=== PATIENT | female | born 1955 | race Caucasian/White ===

== ENCOUNTER → 2020-02-05 08:06 | Outpatient (BNVA) | payer MEDICARE, MEDICAID, SELFPAY | PROVIDERS: Visit Provider Dietitian, Registered | DX: I25.10 Atherosclerotic heart disease of native coronary artery without angina pectoris (principal); E66.3 Overweight; Z68.24 Body mass index [BMI] 24.0-24.9, adult; Z98.84 Bariatric surgery status | CPT/HCPCS: 93005; 99212 ==

== ENCOUNTER 2020-02-13 14:22 | Outpatient (REF) | payer MEDICARE, MEDICAID, SELFPAY ==
--- NOTE | 2020-02-13 14:26 | US_ITS ---
EXAMINATION: US EXTRACRANIAL CAROTID DUPLEX, BILATERAL CLINICAL INFORMATION: Carotid stenosis COMPARISON: None TECHNIQUE: Real-time ultrasound and Doppler techniques (integrating B-mode 2-D vascular images, Doppler spectral analysis and color-flow Doppler imaging) were utilized to interrogate the extracranial carotid arteries, the vertebral arteries and proximal subclavian arteries bilaterally. The degree of stenosis is determined by criteria similar to NASCET. FINDINGS: Right Side: 1. There is calcified atherosclerotic plaque seen in the bifurcation/proximal ICA region. 2. The common carotid artery PSV proximally is 92 cm/s and distally 59 cm/s. 3. there is a stent in the proximal right ICA. The stent is patent. The proximal internal carotid artery velocities are 127 cm/s systolic and 44 cm/s diastolic. 4. The proximal external carotid artery PSV is 382 cm/s. There is a stenosis of the proximal right ECA. 5. The vertebral artery shows antegrade flow. 6. The subclavian artery waveforms are normal. Left Side: 1. There is calcified atherosclerotic plaque seen in the bifurcation/proximal ICA region. 2. The common carotid artery PSV proximally is 94 cm/s and distally 44 cm/s. 3. The proximal internal carotid artery velocities are 285 cm/s systolic and 110 cm/s diastolic. There is a stenosis of the proximal left internal carotid artery. 4. The proximal external carotid artery PSV is 471 cm/s. There is a stenosis of the proximal left ECA. 5. The vertebral artery shows antegrade flow. 6. The subclavian artery waveforms are normal. US/US carotid duplex BI IMPRESSION: 1. RIGHT: Right ICA stent. The stent is patent. Peak systolic velocity suggestive of 0-49% right ICA stenosis. Right ECA stenosis. 2. LEFT: Left ICA stenosis. Peak systolic velocities suggest a 50-79% left ICA stenosis, closer to the higher end of the spectrum. Left ECA stenosis. Findings will be communicated by the [facility] work flow manager care Malathi Daly.
== END 2020-02-13 14:23 | disposition home or self-care (01) ==
LOC: HO.US 14:22
PROVIDERS: PCP Family Medicine; Visit Provider Internal Medicine Cardiovascular Disease
DX: I65.23 Occlusion and stenosis of bilateral carotid arteries (principal)
CPT/HCPCS: 93880

== ENCOUNTER → 2020-04-01 09:15 | Outpatient (BNVA) | payer MEDICARE, MEDICAID, SELFPAY | PROVIDERS: PCP Family Medicine; Visit Provider Surgery Vascular Surgery | DX: I65.23 Occlusion and stenosis of bilateral carotid arteries (principal) | CPT/HCPCS: 99202 ==

== ENCOUNTER → 2020-04-14 08:06 | Outpatient (BNVA) | payer MEDICARE, MEDICAID, SELFPAY | PROVIDERS: PCP Family Medicine; Referring Provider Family Medicine; Visit Provider Dietitian, Registered ==

== ENCOUNTER 2020-06-30 14:30 | Outpatient (REF) | payer MEDICARE, MEDICAID, SELFPAY ==
--- NOTE | ~2020-06-30 | MM_ITS ---
EXAMINATION: MM SCREENING DIGITAL BREAST TOMOSYNTHESIS, BILATERAL CLINICAL INFORMATION: Screening. Asymptomatic. History bilateral reduction mammoplasty 1989. History excisional biopsy noted on prior reports 2004. The lifetime risk of breast cancer based on the Tyrer-Cuzick Model is 7%. COMPARISON: Mammography: 04/03/2019, 03/24/2018, 03/07/2017 TECHNIQUE: Digital breast tomosynthesis is performed in both the craniocaudal and mediolateral oblique views along with computer-aided detection (CAD). Synthesized 2D images are generated from the tomosynthesis. FINDINGS: There are scattered areas of fibroglandular density (ACR BI-RADS breast composition Category b). There is minor bilateral anterior breasts scarring and benign fine round calcifications consistent with the remote reduction mammoplasty. Parenchymal pattern is similar to prior studies. There is no developing density or interval mass or architectural abnormality. No significant changes. MM/MM tomosynthesis screening BI IMPRESSION: No mammographic evidence of malignancy. ASSESSMENT: BI-RADS 2: Benign RECOMMENDATION: Routine annual mammography screening. This patient's information was entered into a reminder system with a target due date for their next mammogram.
== END 2020-06-30 14:31 | disposition home or self-care (01) ==
LOC: HO.MAMMO 14:30
PROVIDERS: Visit Provider Family Medicine
DX: Z12.31 Encounter for screening mammogram for malignant neoplasm of breast (principal)
CPT/HCPCS: 77063; 77067

== ENCOUNTER → 2020-07-02 08:08 | Outpatient (BNVA) | payer MEDICARE, MEDICAID, SELFPAY | PROVIDERS: PCP Family Medicine; Visit Provider Physician Assistant | DX: Z90.3 Acquired absence of stomach [part of] (principal); Z68.27 Body mass index [BMI] 27.0-27.9, adult; Z71.3 Dietary counseling and surveillance | CPT/HCPCS: Q3014 ==

== ENCOUNTER 2020-08-08 08:12 | Outpatient (REF) | payer MEDICARE, MEDICAID, SELFPAY ==
[2020-08-08 08:57] LABS: MANUAL DIFF FLAG NO
[2020-08-08 09:03] LABS: Basophils Percent Auto 0.5 % (0-2); Eosinophils Absolute Auto 0.2 X10*3/uL (0.0-0.4); Eosinophils Percent Auto 2.8 % (0-4); Hematocrit 41.3 % (37-47); Hemoglobin 13.5 g/dl (12.0-16.0); Imm Gran Abs Auto 0.01 X10*3/uL (0.00-0.03); Imm Gran Pct Auto 0.2 % (0.0-0.4); Lymphocytes Absolute Auto 1.8 X10*3/uL (1.2-4.9); Lymphocytes Percent Auto 29.3 % (20-40); Mean Corpuscular HGB Conc 32.7 g/dl (31.0-35.0); Mean Corpuscular Hemoglobin 30.5 pg (27.0-33.0); Mean Corpuscular Volume 93.4 fL (80-98); Mean Platelet Volume 10.1 fL (9.4-12.3); Monocytes Absolute Auto 0.6 X10*3/uL (0.1-1.2); Monocytes Percent Auto 9.2 % (2-11); Neutrophils Absolute Auto 3.6 X10*3/uL (2.0-8.3); Platelet Count 203 X10*3/uL (160-400); Red Blood Count 4.42 X10*6/uL (4.20-5.50); Red Cell Distribution Width 12.4 % (11.0-16.0); White Blood Count 6.1 X10*3/uL (4.8-10.8)
[2020-08-08 09:13] LABS: Estimated Average Glucose 105 mg/dL; Hemoglobin A1c % 5.3 %
[2020-08-08 09:28] LABS: Alanine Aminotransferase 59 U/L (0-31); Albumin Level 4.2 g/dL (3.5-5.0); Alkaline Phosphatase 44 U/L (39-117); Anion Gap 10 (12-20); Aspartate Amino Transferase 43 U/L (5-31); Bilirubin Total 0.4 mg/dL (0.0-1.0); Blood Urea Nitrogen 19 mg/dL (9-16); Carbon Dioxide 29 mmol/L (22-29); Chloride 104 mmol/L (96-108); Cholesterol 131 mg/dL; Estimated Glomerular Filt Rate > 60; Glucose Random 98 mg/dL (60-115); HDL Cholesterol 61 mg/dL; LDL Cholesterol Calculated 64 mg/dl; Potassium 4.2 mmol/L (3.3-5.1); Sodium 139 mmol/L (135-145); Total Protein 6.6 g/dL (6.5-8.0); Triglycerides 32 mg/dL
[2020-08-08 09:46] LABS: Ferritin 38 ng/mL (10-250); TSH reflex Free T4 0.13 uIU/mL (0.32-4.0); Vitamin D 25-OH Total 51.9 ng/mL (>30)
[2020-08-08 10:22] LABS: Folate 18.3 ng/mL (> or = 4.0); Vitamin B12 1535 pg/mL (200-900)
[2020-08-08 10:23] LABS: Free T4 (Free Thyroxine) 1.24 ng/dL (0.71-1.85)
[2020-08-09 10:07] LABS: Insulin Level Total 5.5 uIU/mL
[2020-08-11 02:17] LABS: Zinc 100 mcg/dL (60-130)
[2020-08-11 13:32] LABS: Calcium (PTHI) 9.2 mg/dL (8.6-10.4); PTHI 37 pg/mL (14-64)
[2020-08-12 19:17] LABS: Vitamin A 45 mcg/dL (38-98)
[2020-08-13 12:57] LABS: Vitamin B1 43 nmol/L (8-30)
== END 2020-08-08 08:13 | disposition home or self-care (01) ==
LOC: HO.LAB 08:12
PROVIDERS: PCP Family Medicine; Visit Provider Physician Assistant
DX: E78.5 Hyperlipidemia, unspecified (principal); Z90.3 Acquired absence of stomach [part of]
CPT/HCPCS: 36415; 80053; 80061; 82306; 82607; 82728; 82746; 83036; 83525; 83970; 84425; 84439; 84443; 84590; 84630; 85025; 86140

== ENCOUNTER → 2020-08-13 08:07 | Outpatient (BNVA) | payer MEDICARE, MEDICAID, SELFPAY | PROVIDERS: PCP Internal Medicine; Visit Provider Physician Assistant | DX: E66.3 Overweight (principal); R79.89 Other specified abnormal findings of blood chemistry; Z90.3 Acquired absence of stomach [part of]; Z68.27 Body mass index [BMI] 27.0-27.9, adult | CPT/HCPCS: Q3014 ==

== ENCOUNTER → 2020-09-24 08:10 | Outpatient (BNVA) | payer MEDICARE, MEDICAID, SELFPAY | PROVIDERS: PCP Internal Medicine; Visit Provider Physician Assistant | DX: E66.3 Overweight (principal); Z90.3 Acquired absence of stomach [part of]; Z68.27 Body mass index [BMI] 27.0-27.9, adult | CPT/HCPCS: Q3014 ==

== ENCOUNTER 2020-10-09 13:54 | Outpatient (REF) | payer MEDICARE, MEDICAID, SELFPAY ==
--- NOTE | ~2020-10-09 | US_ITS ---
EXAMINATION: US EXTRACRANIAL CAROTID DUPLEX, BILATERAL CLINICAL INFORMATION: Occlusion and stenosis of bilateral carotid arteries COMPARISON: Ultrasound carotid duplex bilateral 02/13/2020 TECHNIQUE: Real-time ultrasound and Doppler techniques (integrating B-mode 2-D vascular images, Doppler spectral analysis and color-flow Doppler imaging) were utilized to interrogate the extracranial carotid arteries, the vertebral arteries and proximal subclavian arteries bilaterally. The degree of stenosis is determined by criteria similar to NASCET. FINDINGS: Right Side: 1. There is calcified atherosclerotic plaque seen in the bifurcation/proximal ICA region. 2. The common carotid artery PSV proximally is 92.6 cm/s and distally 60.4 cm/s. 3. The proximal internal carotid artery velocities are 118 cm/s systolic and 35.8 cm/s diastolic. There is a stent visualized in the right ICA origin which is widely patent. 4. The proximal external carotid artery PSV is 371 cm/s. 5. The vertebral artery shows antegrade flow. 6. The subclavian artery waveforms are normal. Left Side: 1. There is hard atherosclerotic plaque seen in the bifurcation/proximal ICA region. 2. The common carotid artery PSV proximally is 95.7 cm/s and distally 53.2 cm/s. 3. The proximal internal carotid artery velocities are 379 cm/s systolic and 101 cm/s diastolic. 4. The proximal external carotid artery PSV is 94.4 cm/s. 5. The vertebral artery shows antegrade flow. 6. The subclavian artery waveforms are elevated with peak systolic velocity measuring 257 cm/seconds. US/US carotid duplex BI IMPRESSION: 1. RIGHT: Normal velocities in the right carotid artery with a patent ICA stent. 2. LEFT: Elevated peak systolic velocity left carotid artery 50-79% range stenosis. 3. Elevated left subclavian velocity measuring 257 cm/second suggestive of stenosis. 4. Normal antegrade flow seen in both vertebral arteries.
== END 2020-10-09 13:55 | disposition home or self-care (01) ==
LOC: HO.US 13:54
PROVIDERS: Visit Provider Surgery Vascular Surgery
DX: I65.23 Occlusion and stenosis of bilateral carotid arteries (principal); Z86.73 Personal history of transient ischemic attack (TIA), and cerebral infarction without residual deficits
CPT/HCPCS: 93880

== ENCOUNTER → 2020-10-14 11:02 | Outpatient (BNVA) | payer MEDICARE, MEDICAID, SELFPAY | PROVIDERS: PCP Internal Medicine; Visit Provider Surgery Vascular Surgery | DX: R42 Dizziness and giddiness (principal); I65.23 Occlusion and stenosis of bilateral carotid arteries; I25.10 Atherosclerotic heart disease of native coronary artery without angina pectoris; G70.00 Myasthenia gravis without (acute) exacerbation; Z95.5 Presence of coronary angioplasty implant and graft; Z98.890 Other specified postprocedural states | CPT/HCPCS: 99212 ==

== ENCOUNTER → 2020-10-24 07:45 | Outpatient (BNVA) | payer MEDICARE, MEDICAID, SELFPAY | PROVIDERS: PCP Internal Medicine; Visit Provider Physician Assistant | CPT/HCPCS: Q3014 ==

== ENCOUNTER 2020-10-27 08:01 | Outpatient (REF) | payer MEDICARE, MEDICAID, SELFPAY ==
[2020-10-27 09:26] LABS: Blood Urea Nitrogen 15 mg/dL (9-16); Estimated Glomerular Filt Rate > 60
== END 2020-10-27 08:02 | disposition home or self-care (01) ==
LOC: HO.LAB 08:01
PROVIDERS: PCP Family Medicine; Visit Provider Surgery Vascular Surgery
DX: I65.23 Occlusion and stenosis of bilateral carotid arteries (principal)
CPT/HCPCS: 36415; 82565; 84520

== ENCOUNTER 2020-10-29 09:18 | Outpatient (REF) | payer MEDICARE, MEDICAID, SELFPAY ==
--- NOTE | ~2020-10-29 | CT_ITS ---
EXAMINATION: CT ANGIOGRAM NECK WITH CONTRAST CLINICAL INFORMATION: Occlusion and stenosis of bilateral carotid arteries. COMPARISON: Carotid ultrasound 10/09/2020. TECHNIQUE: Test bolus sequences followed by intravenous administration 70 mL of Omnipaque 350. Helical imaging was performed in the axial plane from the thoracic inlet to the skull base. The data was processed at the medical technologist prn workstation for generation of MIP sequences. Angled MIPs and volume rendered reformatted images were also generated at an offline 3D workstation. Stenoses are assessed in accordance with NASCET criteria unless otherwise indicated. This CT examination was performed using dose optimization techniques as appropriate, variously including the following: *Automated exposure control *Adjustment of mA and/or kV according to patient size (this includes techniques or standardized protocols for targeted exams where dose is matched to indication/reason for exam; i.e. extremities or head) *Use of iterative reconstruction technique DLP: 511 mGy-cm FINDINGS: NECK CTA: The aortic arch demonstrates mild atheromatous changes. The great vessel origins also demonstrate atheromatous changes but are widely patent. Coronary artery calcifications are seen. A stent is seen extending from the distal aspect of the common carotid artery through the proximal cervical segment and appears to demonstrate 63% stenosis within the midportion of the stent. Normal flow is seen both proximal and distal to the stent. The cervical segment of the right ICA is patent. Atheromatous changes are seen involving the petrous and carotid siphon segments without stenosis. Significant atheromatous changes are seen involving the distal left common carotid artery through the carotid bifurcation with critical stenosis demonstrated with only threadlike flow seen across a short segment. There is a plaque ulceration. High-grade stenosis is also seen involving the external carotid artery. More distally, the cervical left internal carotid artery demonstrates normal caliber. Atheromatous changes seen involving the petrous and carotid siphon segments. Calcific plaque is seen at the origin of the left vertebral artery with focal moderate to severe stenosis. Left vertebral artery is otherwise patent. The dominant right vertebral artery demonstrates calcific plaque at its origin without significant stenosis. Right vertebral artery is patent throughout the neck. No definite left-sided subclavian artery stenosis is seen. PARTIALLY IMAGED HEAD CTA: Atheromatous changes are seen within the proximal havasupai of [place] arteries the left vertebral artery appears to terminate as a posterior inferior cerebellar artery. Background changes of chronic microangiopathy are noted. There is a chronic-appearing infarct within the right occipital lobe NON-VASCULAR FINDINGS: The cervical soft tissues are within normal limits. No consolidation is seen within the upper lungs. Degenerative changes are seen in the spine. Changes of laminoplasty is also noted. CT/CT angio neck IMPRESSION: Stent is seen within the distal right common carotid artery extending to the internal carotid artery and appears patent with approximately 63% stenosis within the midportion of the stent. Severe atheromatous changes are seen at the left carotid bifurcation involving the proximal internal and external carotid arteries with critical cervical stenosis involving the ICA with only threadlike flow across a short segment. The more distal cervical ICA segment appears patent. Calcific plaque results in moderate to severe stenosis of the nondominant left vertebral artery origin.
[2020-10-29] MEDS: iohexoL 350 MG/ML 100 ML INFUS..BTL IV (09:47)
== END 2020-10-29 09:19 | disposition home or self-care (01) ==
LOC: HO.CT 09:18
PROVIDERS: PCP Family Medicine; Visit Provider Surgery Vascular Surgery
DX: I63.233 Cerebral infarction due to unspecified occlusion or stenosis of bilateral carotid arteries (principal)
CPT/HCPCS: 70498; Q9967

== ENCOUNTER → 2020-11-11 09:47 | Outpatient (BNVA) | payer MEDICARE, MEDICAID, SELFPAY | PROVIDERS: PCP Family Medicine; Referring Provider Family Medicine; Visit Provider Surgery Vascular Surgery | DX: I65.22 Occlusion and stenosis of left carotid artery (principal) | CPT/HCPCS: 99212 ==

== ENCOUNTER → 2020-11-18 14:26 | Outpatient (BNVA) | payer MEDICARE, MEDICAID, SELFPAY | PROVIDERS: PCP Family Medicine; Visit Provider Nurse Practitioner Family | DX: Z01.810 Encounter for preprocedural cardiovascular examination (principal); I25.10 Atherosclerotic heart disease of native coronary artery without angina pectoris; I65.22 Occlusion and stenosis of left carotid artery; Z79.02 Long term (current) use of antithrombotics/antiplatelets; Z79.52 Long term (current) use of systemic steroids | CPT/HCPCS: 93005; 99212 ==

== ENCOUNTER 2020-11-24 06:28 | Inpatient (IN) | payer MEDICARE, MEDICAID, SELFPAY ==
[2020-11-20 11:22] VITALS: BP 140/64; PULSE 66; RESP 16; O2SAT 98; BMI 28.4
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
[2020-11-24] VITALS (21 sets, daily range): BP systolic 97–153; BP diastolic 37–62; PULSE 55–70; RESP 12–21; TEMP 36.2–36.5; O2SAT 94–100
[2020-11-24 06:46] LABS: COVID-19 Test Negative (Negative); IDNOW Serial# 55D5AD1C
[2020-11-24 06:47] LABS: Hematocrit 41.4 % (37-47); Hemoglobin 13.4 g/dl (12.0-16.0); Mean Corpuscular HGB Conc 32.4 g/dl (31.0-35.0); Mean Corpuscular Hemoglobin 30.2 pg (27.0-33.0); Mean Corpuscular Volume 93.5 fL (80-98); Mean Platelet Volume 9.8 fL (9.4-12.3); Platelet Count 197 X10*3/uL (160-400); Red Blood Count 4.43 X10*6/uL (4.20-5.50); White Blood Count 6.9 X10*3/uL (4.8-10.8)
[2020-11-24] MEDS: Lactated Ringers 1,000 ML 100 ML IVCONT (06:50)
[2020-11-24 07:01] LABS: Partial Thromboplastin Time 37.4 SEC (24.1-38.0)
[2020-11-24 07:15] LABS: Anion Gap 13 (12-20); Blood Urea Nitrogen 17 mg/dL (9-16); Calcium 9.4 mg/dL (8.4-10.2); Carbon Dioxide 25 mmol/L (22-29); Chloride 107 mmol/L (96-108); Creatinine Clr Calc Pharmacy 93.3; Estimated Glomerular Filt Rate > 60; Glucose Random 84 mg/dL (60-115); Potassium 4.2 mmol/L (3.3-5.1); Sodium 141 mmol/L (135-145)
--- NOTE | 2020-11-24 07:51 | MHC.SHP ---
Pre-Procedural Eval Section A Date of Service: 11/24/20 The patient is an INPATIENT: No The History & Physical has been completed within 30 days and I have reviewed it.: Yes Section B Chief Complaint: occlusion and stenosis of left carotid artery Allergies: Allergies Allergy/AdvReac Type Severity Reaction Status Date / Time No Known Allergies Allergy Verified 11/19/20 15:24 Plan I have reviewed the history and physical and performed a pertinent physical examination on my patient. No changes have occurred unless specified.
[2020-11-24] MEDS: ceFAZolin Sodium/Dextrose,Iso 2 GM/50 ML PIGGYBACK IV (08:00)
--- NOTE | 2020-11-24 10:44 | P.OP_ITS ---
Operative Note Operative Note Date of Service: 11/24/20 Narrative: Operative note by [facility] Preoperative diagnosis:Left carotid stenosis Postoperative diagnosis: garrett Procedure: left carotid endarterectomy Surgeon:Karsten Abraham M.D. Manufacturing Controller: Dr. Little Anesthesia: general Specimens: 1 Drains: 1 Estimated blood loss: 100 mL Indications: very pleasant 65-year-old female with a history of carotid disease. She had a prior right-sided carotid stent many years prior. On surveillance follow-up was noted to have high-grade left carotid stenosis. This was confirmed by CT scan. She now presents for left carotid endarterectomy. The patient has signed the informed consent after reviewing risks, complications, benefits, and alternatives previously discussed with the patient in my office. The patient was given the opportunity to ask any additional questions or voice any concerns. All questions were answered to the patient's satisfaction. Procedure in detail: Patient was brought to the operating room prior to which a time-out was called for patient identification and site verification. Left neck was prepped and draped in standard surgical fashion. Incision was carried out over the anterior border of the sternocleidomastoid. We dissected down to the carotid sheath. We were easily able to identify the internal external and common carotid. We ligated the facial branch of the jugular vein with 2-0 silk ties. Once this was done at the common carotid was isolated with a Oliver tourniquet. Internal and external carotid was isolated with silastic loops. At this time 5000 units of systemic heparin was administered. After 5 minutes of circulation time internal common and external were clamped in that order. arteriotomy was carried out from the common carotid into the internal carotid. At this time a Paz 8 [place] shunt was then placed. Once in position flow was established. Endarterectomy was then performed using a [place] elevator. Very calcified large plaque was removed. Once this was accomplished loose debris was removed. Area was flushed clear. The arteriotomy was closed over with a xenosure patch. This was circumferentially anastomosed with a 6 0 Prolene suture. Prior to closure this was flushed clear. Shunt was then removed. Closed and there were a few residual bleeding points that had to be closed with a 7 0 Prolene suture. Once this was accomplished flow was reestablished external, common, internal carotids were then opened in that order. Once flow was reestablished adequate hemostasis was achieved. Seven flat Gurvinder-Martinez drain was then placed. Deep layer was reapproximated using 2 0 poly sore. Superficial layer with 3-0 poly sore. Finally skin was closed using a subcuticular 4-0 Monocryl. Steri-Strips and a sterile dressing were applied. At the end of the case sponge instrument counts were correct. Patient tolerated the procedure well. Returned to recovery with stable vitals. In addition the patient was neurologically intact. This note is constructed using voice recognition software. While every effort has been made to ensure accuracy, insulation hoseman errors may have been included. Thank you for allowing me to participate in the care of your patient. Yours sincerely, Karsten Abraham MD, FACS, R.P.V.I.
[2020-11-24] MEDS: oxyCODONE HCl Immed Release 5 MG TABLET PO ×3 (11:05→22:56)
[2020-11-24 12:05] LABS: Glucose, Whole Blood 138 mg/dL (60-115)
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
[2020-11-24] MEDS: Lactated Ringers 1,000 ML 75 ML IVCONT ×2 (12:20→20:15)
--- NOTE | 2020-11-24 13:15 | MHC.STROKE ---
CONFIRMED WITH NICOLE GUERRERO THAT PNEUMATIC COMPRESSION BOOTS ARE ON, VTE PROPHYLAXIS MEASURE MET.
--- NOTE | 2020-11-24 16:23 | MHC.CM.PN ---
IMM 11/24/20 Female S/P L CEA She lives alone. She is independent adls and ambulation, with equipment. DP home w Jacqui ESPARZAA (Patients Preference) HCP on file. Pt will arrange for transportation. CM will follow.
--- NOTE | 2020-11-24 17:00 | PC.NURSE ---
Addendum entered by Mely Solitario RN 11/24/20 18:24: MAP trending 56-59 w/ A-Line. Dr Marshall notified and at bedside. Second dressing moderately saturated with michell red bloody drainage. No swelling noted. Patient has no complaints. LS 500cc bolus VO Dr Marshall ordered and administering. TREY Drain emptied w/ approx 40cc michell red blood. Original Note: Patient arrived to unit from PACU via bed. Patient underwent left carotid endarterectomy with Dr Abraham- dressing had moderate amount of bloody stainage upon arrival. Dressing reinforced twice and Dr Abraham notified of continued drainage. TREY drain intact - approx 30-40cc michell red blood. Dr Marshall at bedside. Patient on Plavix & Aspirin at home. BP 109/44, HR 70, 99% on RA, RR 15-18. Patient A&O x3, complains of soreness to left carotid - medicated with PRN oxycodone. Patient currently sitting up in bed eating dinner with family at bedside. Will continue to monitor.
[2020-11-24] MEDS: Acetaminophen 325 MG TABLET 650 MG PO (20:15)
[2020-11-24 22:34] LABS: Hematocrit 31.5 % (37-47); Hemoglobin 10.3 g/dl (12.0-16.0)
[2020-11-25] VITALS (21 sets, daily range): BP systolic 114–167; BP diastolic 40–74; PULSE 60–78; RESP 9–18; TEMP 36.4–37.1; O2SAT 93–100
[2020-11-25] MEDS: oxyCODONE HCl Immed Release 5 MG TABLET PO ×4 (03:29→22:49)
[2020-11-25 05:24] LABS: MANUAL DIFF FLAG NO
[2020-11-25 05:33] LABS: Basophils Percent Auto 0.2 % (0-2); Eosinophils Percent Auto 0.1 % (0-4); Hematocrit 32.1 % (37-47); Hemoglobin 10.3 g/dl (12.0-16.0); Imm Gran Abs Auto 0.04 X10*3/uL (0.00-0.03); Imm Gran Pct Auto 0.4 % (0.0-0.4); Lymphocytes Absolute Auto 1.7 X10*3/uL (1.2-4.9); Lymphocytes Percent Auto 16.9 % (20-40); Mean Corpuscular HGB Conc 32.1 g/dl (31.0-35.0); Mean Corpuscular Hemoglobin 30.3 pg (27.0-33.0); Mean Corpuscular Volume 94.4 fL (80-98); Mean Platelet Volume 10.3 fL (9.4-12.3); Monocytes Absolute Auto 0.9 X10*3/uL (0.1-1.2); Neutrophils Absolute Auto 7.4 X10*3/uL (2.0-8.3); Neutrophils Percent Auto 73.4 % (45-73); Platelet Count 162 X10*3/uL (160-400); Red Cell Distribution Width 13.1 % (11.0-16.0)
[2020-11-25 05:40] LABS: Anion Gap 10 (12-20); Blood Urea Nitrogen 14 mg/dL (9-16); Carbon Dioxide 28 mmol/L (22-29); Chloride 106 mmol/L (96-108); Creatinine Clr Calc Pharmacy 108.6; Estimated Glomerular Filt Rate > 60; Glucose Random 104 mg/dL (60-115); Potassium 4.6 mmol/L (3.3-5.1); Sodium 139 mmol/L (135-145)
[2020-11-25 05:42] LABS: Prothrombin Time 11.4 SEC (9.9-13.0)
--- NOTE | 2020-11-25 06:07 | PC.NURSE ---
Addendum entered by Jaylyn Hurd RN 11/25/20 06:17: TREY drain to L neck emptied for 10 ml of michell blood. Original Note: Upon initial assessment- surgical dsg to L neck saturated with sanguineous drainage, previously reinforced. Jackelyn reading SBP 80-90s, MAP 50s. Correlating well with manual BP. Pt A&Ox4- states dizzy/diaphoretic/anxious. UOP 30 ml/hr. Receiving LR bolus. PA notified- updated Dr. Abraham, stat H/H ordered, dsg again reinforced. Pt c/o surgical site pain, medicated with PRN oxycodone with good effect. Site continued to ooze throughout night. Currently HR 60s, SBP 120s, MAP > 65, UOP increasing to 350 ml/hr this AM.
[2020-11-25] MEDS: 0.9 % Sodium Chloride Flush 3 ML SYRINGE IVFLUSH (08:09)
--- NOTE | 2020-11-25 09:37 | PC.NURSE ---
Patient A&Ox3. VSS. Only mild discomfort to surgical site to right carotid, managed to tolerable level with prn Oxycodone. Surgical site previously reinforced by wash oil pump operator helper RN, aware. No further reinforcement need. Minimal blood in TREY drain noted. at bedside. Dressing changed, patient tolerated well, slightly emotional. Horne and A-line removed per , occlusive dressing applied. Patient eating and out of bed to chair. Per , patient to stay in ICU until reassessment this afternoon to monitor for bleeding/complications. Patient aware and agreeable to plan of care.
[2020-11-25] MEDS: Lactated Ringers 1,000 ML 75 ML IVCONT ×2 (09:47→22:46)
[2020-11-25 11:27] LABS: Glucose, Whole Blood 106 mg/dL (60-115)
--- NOTE | 2020-11-25 14:12 | HO.VASCPN ---
Subjective Subjective Date of Service: 11/25/20 Patient reports: no new complaints and feels better Interval history: 65-year-old female postop day 1 status post left carotid endarterectomy. She did have some bleeding through the incision overnight. She has remained hemodynamically stable. She feels quite well today. She tolerated a regular breakfast. She is at of bed to chair. Horne in a line have been removed. Physical Exam Vital Signs: Vital Signs: Last Vital Signs Temp 97.6 F 11/25/20 11:00 Pulse 67 11/25/20 13:00 Resp 14 11/25/20 13:00 BP 136/46 L 11/25/20 12:00 Pulse Ox 98 11/25/20 13:00 Oxygen Flow Rate 2 11/24/20 08:28 Body Mass Index 28.4 Const: General: cooperative, healthy appearing and comfortable Orientation/consciousness: oriented to person, oriented to place and oriented to time HENMT: Head: Yes normal to inspection Neck: Neck: Yes normal visual inspection Carotids: no bruits Chest: Chest palpation & inspection: normal inspection of the chest Resp: Effort & Inspection: normal respiratory effort and able to speak in complete sentences Auscultation: clear to auscultation bilaterally, no crackles, no rales, no rhonchi and no wheezes Cardio: Rate: regular rate Rhythm: regular rhythm Heart sounds: S1 normal heart sound present and S2 normal heart sound present Bruits: no carotid bruits Peripheral pulses: Peripheral pulses 2+ throughout GI: Inspection: Yes normal to inspection Skin: Other: Incision line appears to be healing well. Still fair amount of serous sanguinous drainage from the incision line. TREY was removed Wounds: no wounds Hair: normal Neuro: General: oriented to person, oriented to place and oriented to time Cranial nerves: Yes CN's II-XII intact bilaterally and Yes Normal hearing present Cognition (Neuro): normal cognition Motor exam (neuro): 5/5 motor strength present throughout Extrem: Other: venous exam: No significant superficial varicosities or spider telangiectasias, minimal edema General: No clubbing, No cyanosis and No edema Psych: Appearance: grossly normal Mental Status: mental status grossly normal Speech and movement: Normal speech and movement present Progress Note: A&P Assessment and plan (1) Left carotid stenosis: Status: Acute Assessment and Plan: Patient is doing extremely well status post left carotid endarterectomy. Due to the use of aspirin and Plavix she has a continued bleed through the incision line. It appears to be stabilizing. I do believe she needs 1 more day of observation. She will be transferred to the floor. If stable potential discharge as early as tomorrow. Fall Risk Details Current Medications: Current Medications Generic Name Dose Route Start Last Admin Trade Name Freq PRN Reason Stop Dose Admin Acetaminophen 650 mg 11/24/20 10:41 11/24/20 20:15 Acetaminophen 325 Mg Tablet PO 650 mg Q6H PRN Administration Pain, Mild (Pain Scale 1-3) Fentanyl 25 mcg 11/24/20 08:27 Fentanyl Citrate/Pf 100 Mcg/2 Ml Vial IVPUSH Q5M PRN Pain, Moderate (Pain Scale 4-6 Protocol Lactated Ringer's 1,000 mls @ 75 mls/hr 11/24/20 12:15 11/25/20 09:47 Lr IVCONT 75 mls/hr .[id number] LALI Administration Morphine Sulfate 2 mg 11/24/20 10:41 Morphine Sulfate 2 Mg/Ml Cartridge IVPUSH Q4H PRN Pain, Severe (Pain Scale 7-10) Protocol Ondansetron HCl 4 mg 11/24/20 08:27 Ondansetron Hcl 4 Mg/2 Ml Vial IVPUSH ONCE PRN Nausea and Vomiting Oxycodone HCl 5 mg 11/24/20 10:41 11/25/20 08:58 Oxycodone Hcl Immed Release 5 Mg Tablet PO 5 mg Q4H PRN Administration Pain, Moderate (Pain Scale 4-6 Sodium Chloride 3 ml 11/24/20 16:00 11/25/20 08:09 0.9 % Sodium Chloride Flush 3 Ml Syringe IVFLUSH 3 ml QSHIFT LALI Administration Time Spent With Patient Time: Total time spent is greater than 50% in coordination of care (as documented) at patient's floor/unit and/or counseling patient: Time with patient: 25 - 35 minutes Procedures Date of Service Date of Service: 11/25/20 Quality Stroke Does the patient have a stroke diagnosis?: No VTE Prior VTE?: No VTE Risk Level:: Surgical - moderate VTE Device Contraindication: N/A - Device Ordered VTE Drug Contraindication: Treatment Not Tolerated
--- NOTE | 2020-11-25 14:43 | HO.POSTANES ---
Post Anesthesia Evaluation Post Anesthesia Evaluation Vital Signs: Vital Signs Temp Pulse Resp BP Pulse Ox 11/25/20 14:00 63 14 115/46 L 100 11/25/20 13:00 67 14 98 11/25/20 12:00 73 13 136/46 L 98 11/25/20 11:00 97.6 F 63 13 130/50 L 99 11/25/20 10:00 71 13 130/49 L 99 11/25/20 09:00 72 13 135/45 L 100 11/25/20 08:28 100 11/25/20 08:00 98.0 F 63 12 138/43 L 100 11/25/20 07:00 63 14 128/44 L 98 11/25/20 05:59 98.2 F 62 11 L 130/40 L 99 11/25/20 05:42 97.9 F 11/25/20 04:55 65 12 126/40 L 100 11/25/20 04:00 63 10 L 127/45 L 97 11/25/20 03:00 60 9 L 118/45 L 96 Anesthesia: General Endotracheal-GETA Mental Status: Awake Pain Control: Satisfactory Nausea/Vomiting: None Hydration: Adequate Anesthesia-Related Issues: No Anes. Related Issues
--- NOTE | 2020-11-25 19:53 | PC.NURSE ---
reinforced dressing to left neck. Moderate amount sanguineous drainage, some coagulated blood noted at top of bandage. Will monitor closely.
[2020-11-26 03:15] VITALS: BP 157/60; PULSE 71; RESP 18; TEMP 36.7; O2SAT 98
[2020-11-26] MEDS: Acetaminophen 325 MG TABLET 650 MG PO (06:34)
[2020-11-26 07:11] VITALS: BP 151/73; PULSE 66; RESP 18; TEMP 36.8; O2SAT 99
[2020-11-26 08:00] VITALS: O2SAT 99
[2020-11-26] MEDS: 0.9 % Sodium Chloride Flush 3 ML SYRINGE IVFLUSH (09:28)
--- NOTE | 2020-11-26 10:03 | SUR.PHASEII ---
Wound assessment completed today. Patient has an surgical wound on left neck from carotid repair. Surgical site was cleaned and redressed. Patient being discharged today.
--- NOTE | 2020-11-26 10:17 | PM.DS ---
DS: Providers Provider Date of Service: 11/26/20 Date of admission: 11/24/20 06:28 Primary care physician: Agueda Ann MD DS: Diagnosis Discharge Diagnosis (1) Left carotid stenosis: Status: Acute DS: Medications Discharge Medications Home Medications: Home Medications Medication Instructions Recorded Confirmed clopidogrel 75 mg tablet 75 mg PO DAILY 02/05/20 11/24/20 ezetimibe 10 mg tablet 10 mg PO DAILY 02/05/20 11/19/20 gabapentin 100 mg capsule 100 mg PO BEDTIME PRN 02/05/20 11/19/20 calcium citrate 315 mg 2 tab PO BID tab 05/02/20 11/19/20 calcium-vitamin D3 6.25 mcg (250 unit) tablet atorvastatin 20 mg tablet 80 mg PO BEDTIME tab 07/02/20 11/19/20 levothyroxine 100 mcg tablet 100 mcg PO QAM 10/14/20 11/24/20 aspirin 81 mg tablet,delayed 81 mg PO DAILY 11/19/20 11/19/20 release Previous Rx's Medication Instructions Recorded oxycodone-acetaminophen 5 mg-325 1 tab PO Q4-6H PRN #10 tab 11/26/20 mg tablet (Percocet) DS: Summary Hospital Course Hospital Course: Patient underwent left carotid endarterectomy a on Tuesday11/24/2020. Postoperatively she was observed in the ICU with no blood pressure issues overnight. Postop day 1 she did have some bleeding and oozing to the incision line. Aspirin and Plavix was held. She was subsequently transferred to the floor and observed an additional night. Bleeding had significantly decreased. Postop day 2 she was subsequently discharged. Condition upon discharge stable. Time Spent with Patient Time attestation: Total time spent providing and/or coordinating discharge services: Discharge coordination time: Greater than 30 minutes Quality: Stroke Does the patient have a stroke diagnosis?: No Physical Exam Vital Signs: Vital Signs: Last Vital Signs Temp 98.3 F 11/26/20 07:11 Pulse 66 11/26/20 07:11 Resp 18 11/26/20 07:11 BP 151/73 H 11/26/20 07:11 Pulse Ox 99 11/26/20 07:11 Oxygen Flow Rate 2 11/24/20 08:28 Body Mass Index 28.4 Const: General: cooperative, healthy appearing and no acute distress Orientation/consciousness: oriented to person, oriented to place and oriented to time HENMT: Head: Yes normal to inspection Neck: Carotids: no bruits Chest: Chest palpation & inspection: normal inspection of the chest Resp: Effort & Inspection: normal respiratory effort and able to speak in complete sentences Auscultation: clear to auscultation bilaterally Cardio: Rate: regular rate Heart sounds: S1 normal heart sound present and S2 normal heart sound present GI: Inspection: Yes normal to inspection Skin: Other: Left neck incision healing well. Slow persistent lose through the inferior aspect of incision. General skin exam: no rashes or lesions noted Wounds: no wounds Neuro: General: oriented to person, oriented to place, oriented to time and CN's II-XI intact bilaterally Extrem: General: Yes normal to inspection, Yes full ROM and Yes no clubbing, cyanosis or edema Psych: Appearance: grossly normal and well kempt Speech and movement: Normal speech and movement present Affect: normal affect DS: Data Data Completed and Pending Completed studies during hospitalization [Text1]: Pending at discharge 11/24/20 09:18 Surgical [PTH] Routine Labs on day of discharge: Laboratory Results - last 24 hr 11/25/20 11:24 POC Glucose 106 Discharge Plan Discharge Patient Disposition: Home, Self-Care Discharge Diagnosis: Left carotid stenosis Referrals: Agueda Ann MD [Primary Care Provider] - 1 Week Discharge Medications: New oxycodone-acetaminophen [Percocet] 5-325 mg tablet 1 tab PO Q4-6H PRN (Reason: pain) Qty: 10 RF: 0 Continued calcium citrate-vitamin D3 315 mg-6.25 mcg (250 unit) tablet 2 tab PO BID RF: 0 aspirin 81 mg Tablet,Delayed Release (Dr/Ec) 81 mg PO DAILY RF: 0 ezetimibe 10 mg tablet 10 mg PO DAILY RF: 0 clopidogrel 75 mg tablet 75 mg PO DAILY RF: 0 gabapentin 100 mg capsule 100 mg PO BEDTIME PRN (Reason: moderate pain) RF: 0 atorvastatin 20 mg tablet 80 mg PO BEDTIME RF: 0 levothyroxine 100 mcg tablet 100 mcg PO QAM RF: 0 Discharge Orders: Discharge Order (Routine); Ordered 11/26/20 Ordered By: Karsten Abraham Diet: advance to usual diet Activity on Discharge: As tolerated Stand Alone Forms: Patient Portal Discharge page Activity Restrictions/Additional Instructions: Change neck dressing as needed for oozing Take it easy today and you may ambulate around the house. you may climb a flight of stairs as tolerated Do not lift anything heavier than a gallon of milk for 2 weeks. No driving for 2 weeks See me in follow-up in approximately 2 weeks time. you should already have an appointment if not please call my office at [phone] Please hold aspirin and Plavix until Tuesday If you notice excessive bleeding please immediately call my office or return to the emergency room. Care Plan Goals: Postop care Health Concerns: Carotid disease Plan of Treatment: Postop care and surveillance follow-up with ultrasound Assessment: Stable status post carotid endarterectomy
--- NOTE | 2020-11-26 10:18 | MHC.CM.PN ---
Patient has been medically cleared for dc to home today, no services. Last IMM addressed on 11/24/20.
[2020-11-26 11:11] VITALS: PULSE 65; O2SAT 98
== END 2020-11-26 13:49 | disposition home or self-care (01) | DRG 39 ==
LOC: HO.SSSA 08:18 → HO.ICU 11:16 → HO.IMC 11-25 16:53
PROVIDERS: Physician Assistant Medical; Admitting Provider Surgery Vascular Surgery; PCP Family Medicine; Visit Provider Surgery Vascular Surgery
PROC: 03CJ0ZZ Extirpation of Matter from Left Common Carotid Artery, Open Approach (ICD-10-PCS; CPT 35301; principal; 2020-11-24 07:30)
DX: I65.22 Occlusion and stenosis of left carotid artery (principal); E78.5 Hyperlipidemia, unspecified; Z98.84 Bariatric surgery status; Z86.73 Personal history of transient ischemic attack (TIA), and cerebral infarction without residual deficits; Z79.02 Long term (current) use of antithrombotics/antiplatelets; Z79.82 Long term (current) use of aspirin; Z79.890 Hormone replacement therapy; Z79.899 Other long term (current) drug therapy
CPT/HCPCS: 36415; 80048; 82947; 85014; 85018; 85025; 85027; 85610; 85730; 86850; 86900; 86901; 87635; 88304; 88311; 99024; C1768; J0690; J1100; J1170; J2250; J2370; J2405; J3010

== ENCOUNTER → 2020-12-09 13:48 | Outpatient (BNVA) | payer MEDICARE, MEDICAID, SELFPAY | PROVIDERS: PCP Family Medicine; Visit Provider Surgery Vascular Surgery | DX: I65.23 Occlusion and stenosis of bilateral carotid arteries (principal) | CPT/HCPCS: 99212 ==

== ENCOUNTER → 2021-01-16 08:11 | Outpatient (BNVA) | payer MEDICARE, MEDICAID, SELFPAY | PROVIDERS: PCP Family Medicine; Visit Provider Physician Assistant | DX: E66.9 Obesity, unspecified (principal); Z90.3 Acquired absence of stomach [part of]; Z68.29 Body mass index [BMI] 29.0-29.9, adult | CPT/HCPCS: Q3014 ==

== ENCOUNTER → 2021-02-10 11:16 | Outpatient (BNVA) | payer MEDICARE, MEDICAID, SELFPAY | PROVIDERS: PCP Family Medicine; Visit Provider Internal Medicine Cardiovascular Disease | DX: I65.23 Occlusion and stenosis of bilateral carotid arteries (principal); I63.9 Cerebral infarction, unspecified; I25.10 Atherosclerotic heart disease of native coronary artery without angina pectoris; G70.00 Myasthenia gravis without (acute) exacerbation; E05.00 Thyrotoxicosis with diffuse goiter without thyrotoxic crisis or storm; Z95.5 Presence of coronary angioplasty implant and graft; Z98.890 Other specified postprocedural states; Z82.49 Family history of ischemic heart disease and other diseases of the circulatory system; Z79.899 Other long term (current) drug therapy | CPT/HCPCS: 99212 ==

== ENCOUNTER 2021-03-09 09:55 | Outpatient (REF) | payer MEDICARE, MEDICAID, SELFPAY ==
--- NOTE | ~2021-03-09 | US_ITS ---
EXAMINATION: US EXTRACRANIAL CAROTID DUPLEX, BILATERAL CLINICAL INFORMATION: Occlusion and stenosis of bilateral carotid arteries. Status post endarterectomy 11/24/2020. Right stent in place. COMPARISON: None TECHNIQUE: Real-time ultrasound and Doppler techniques (integrating B-mode 2-D vascular images, Doppler spectral analysis and color-flow Doppler imaging) were utilized to interrogate the extracranial carotid arteries, the vertebral arteries and proximal subclavian arteries bilaterally. The degree of stenosis is determined by criteria similar to NASCET. FINDINGS: Right Side: 1. There is hard atherosclerotic plaque seen in the bifurcation/proximal ICA region. 2. The common carotid artery PSV proximally is 86.9 cm/s and distally 59.5 cm/s. 3. The proximal internal carotid artery velocities are 118 cm/s systolic and 32.1 cm/s diastolic. 4. The proximal external carotid artery PSV is 378 cm/s. 5. The vertebral artery shows 72.7 flow. 6. The subclavian artery waveforms are normal. Left Side: 1. There is hard atherosclerotic plaque seen in the bifurcation/proximal ICA region. 2. The common carotid artery PSV proximally is 99.4 cm/s and distally 70.8 cm/s. 3. The proximal internal carotid artery velocities are 281 cm/s systolic and 67.6 cm/s diastolic. 4. The proximal external carotid artery PSV is 127 cm/s. 5. The vertebral artery shows 49 flow. 6. The subclavian artery waveforms are 226. US/US carotid duplex BI IMPRESSION: 1. RIGHT: No hemodynamically significant stenosis in right internal carotid artery. 2. LEFT: 50-79% range stenosis left ICA. 3. Elevated peak systolic velocity right ECA suggestive of high grade stenosis.
== END 2021-03-09 09:56 | disposition home or self-care (01) ==
LOC: HO.US 09:55
PROVIDERS: PCP Family Medicine; Visit Provider Surgery Vascular Surgery
DX: I65.23 Occlusion and stenosis of bilateral carotid arteries (principal)
CPT/HCPCS: 93880

== ENCOUNTER → 2021-03-12 13:51 | Outpatient (BNVA) | payer MEDICARE, MEDICAID, SELFPAY | PROVIDERS: PCP Family Medicine; Visit Provider Surgery Vascular Surgery | DX: I65.23 Occlusion and stenosis of bilateral carotid arteries (principal); Z79.82 Long term (current) use of aspirin; Z95.828 Presence of other vascular implants and grafts | CPT/HCPCS: 99212 ==

== ENCOUNTER → 2021-04-16 08:11 | Outpatient (BNVA) | payer MEDICARE, MEDICAID, SELFPAY | PROVIDERS: PCP Family Medicine; Visit Provider Dietitian, Registered | DX: E66.9 Obesity, unspecified (principal); Z68.30 Body mass index [BMI] 30.0-30.9, adult; Z98.84 Bariatric surgery status | CPT/HCPCS: 97803 ==

== ENCOUNTER → 2021-05-26 08:13 | Outpatient (BNVA) | payer MEDICARE, MEDICAID, SELFPAY | PROVIDERS: PCP Family Medicine; Visit Provider Physician Assistant Surgical | DX: E66.9 Obesity, unspecified (principal); Z68.31 Body mass index [BMI] 31.0-31.9, adult; Z98.84 Bariatric surgery status | CPT/HCPCS: Q3014 ==

== ENCOUNTER → 2021-06-18 08:24 | Outpatient (BNVA) | payer MEDICARE, MEDICAID, SELFPAY | PROVIDERS: PCP Family Medicine; Referring Provider Physician Assistant; Visit Provider Dietitian, Registered | DX: E66.9 Obesity, unspecified (principal) | CPT/HCPCS: 97803 ==

== ENCOUNTER 2021-07-01 15:11 | Outpatient (REF) | payer MEDICARE, MEDICAID, SELFPAY ==
--- NOTE | ~2021-07-01 | MM_ITS ---
EXAMINATION: MM SCREENING DIGITAL BREAST TOMOSYNTHESIS, BILATERAL CLINICAL INFORMATION: Screening. Asymptomatic. Prior remote reduction mammoplasty, 1989. Also history excisional biopsy. The lifetime risk of breast cancer based on the Tyrer-Cuzick Model is 7%. COMPARISON: Mammography: 06/30/2020, 04/03/2019, 03/24/2018 TECHNIQUE: Digital breast tomosynthesis is performed in both the craniocaudal and mediolateral oblique views along with computer-aided detection (CAD). Synthesized 2D images are generated from the tomosynthesis. FINDINGS: There are scattered areas of fibroglandular density (ACR BI-RADS breast composition Category b). Parenchymal pattern is similar to prior studies. There is minor scarring and scattered benign isolated and grouped round, rim, and dermal calcifications and some vascular calcifications again seen. There is no developing density or interval mass or architectural abnormality. The axilla and skin contours are unremarkable. No significant changes. MM/MM tomosynthesis screening BI IMPRESSION: No mammographic evidence of malignancy. ASSESSMENT: BI-RADS 2: Benign RECOMMENDATION: Routine annual mammography screening. This patient's information was entered into a reminder system with a target due date for their next mammogram.
== END 2021-07-01 15:12 | disposition home or self-care (01) ==
LOC: HO.MAMMO 15:11
PROVIDERS: PCP Family Medicine; Visit Provider Family Medicine
DX: Z12.31 Encounter for screening mammogram for malignant neoplasm of breast (principal)
CPT/HCPCS: 77063; 77067

== ENCOUNTER → 2021-07-07 08:14 | Outpatient (BNVA) | payer MEDICARE, MEDICAID, SELFPAY | PROVIDERS: PCP Family Medicine; Visit Provider Physician Assistant Surgical | DX: E66.9 Obesity, unspecified (principal); Z68.31 Body mass index [BMI] 31.0-31.9, adult | CPT/HCPCS: Q3014 ==

== ENCOUNTER 2021-09-17 10:35 | Outpatient (REF) | payer MEDICARE, MEDICAID, SELFPAY ==
--- NOTE | ~2021-09-17 | US_ITS ---
EXAMINATION: US EXTRACRANIAL CAROTID DUPLEX, BILATERAL CLINICAL INFORMATION: Bilateral carotid stenosis COMPARISON: Carotid ultrasound 03/27/2021 and CTA neck 10/29/2020 TECHNIQUE: Real-time ultrasound and Doppler techniques (integrating B-mode 2-D vascular images, Doppler spectral analysis and color-flow Doppler imaging) were utilized to interrogate the extracranial carotid arteries, the vertebral arteries and proximal subclavian arteries bilaterally. The degree of stenosis is determined by criteria similar to NASCET. FINDINGS: Right Side: 1. A stent is present in the right ICA. 2. The common carotid artery PSV proximally is 130 cm/s and distally 60 cm/s. 3. The proximal internal carotid artery velocities are 79 cm/s systolic and 20 cm/s diastolic. 4. The proximal external carotid artery PSV is markedly elevated at 594 cm/s. 5. The vertebral artery shows antegrade flow. 6. The subclavian artery waveforms are normal. Left Side: 1. There is marked atherosclerotic plaque seen in the bifurcation/proximal ICA region. 2. The common carotid artery PSV proximally is 131 cm/s and distally 76 cm/s. 3. The proximal internal carotid artery velocities severely elevated at 636 cm/s systolic and 225 cm/s diastolic. 4. The proximal external carotid artery PSV is 198 cm/s. 5. The vertebral artery shows antegrade flow. 6. The subclavian artery waveforms are normal. US/US carotid duplex BI IMPRESSION: 1. RIGHT: Severe ECA stenosis. 2. LEFT: Severe 80-99% stenosis of the proximal left ICA. 3. There has been significant progression of disease in the left ICA when compared to the previous study dated 03/09/2021. These results will be relayed to the patient's provider and when this has been done, an addendum can be issued.
== END 2021-09-17 10:36 | disposition home or self-care (01) ==
LOC: HO.US 10:35
PROVIDERS: Visit Provider Surgery Vascular Surgery
DX: I65.23 Occlusion and stenosis of bilateral carotid arteries (principal)
CPT/HCPCS: 93880

== ENCOUNTER 2021-09-21 07:32 | Outpatient (REF) | payer MEDICARE, MEDICAID, SELFPAY ==
--- NOTE | ~2021-09-21 | CT_ITS ---
EXAMINATION: CT angio neck CLINICAL INFORMATION: Occlusion and stenosis of the carotid arteries. COMPARISON: Carotid ultrasound 09/17/2021. CT angiogram neck 10/29/2020. TECHNIQUE: Wink Cutter Operator images were obtained. A CT angiogram of the neck was performed in the arterial phase after the intravenous administration of 50 mL Omnipaque 350. MIP reconstructions were generated in multiple orientations at the acquisition workstation. Multiple three-dimensional surface rendered images and maximum intensity projection images were generated on a dedicated 3-D lab workstation. Arterial stenoses are measured in accordance with NASCET criteria or similar method if applicable. This CT examination was performed using dose optimization techniques as appropriate, including one or more of the following: Automated exposure control, iterative reconstruction, and adjustment of technique factors (mA and/or kVp) according to patient size (this includes techniques or standardized protocols for targeted exams where dose is matched to indication/reason for exam). Total exam dose-length product 324 mGy-cm FINDINGS: CT angiogram neck: The aortic arch apex is normal. Origins of the major aortic branches are widely patent. There are chronic postoperative changes of a left carotid endarterectomy. There has however been restenosis at the left carotid bifurcation with now greater than 90% stenosis at the origin of the left internal carotid artery best depicted on axial image 217 of 490 series 13. Otherwise stable appearance of a carotid angioplasty and stenting on right side with a mild waist within the midportion of the vascular stent as it crosses the heavily calcified plaque. No identified restenosis within the lumen of the stent. The cervical segments of the vertebral arteries as well as their origins are patent. Visualized intracranial internal carotid arteries and the vertebrobasilar system are unremarkable. Other: Although only partially included within the icnun-ss-cluk of this examination there is gliosis and encephalomalacia involving the right axilla below consistent with chronic changes of an old infarct within the vascular territory the right posterior cerebral artery. No intracranial mass effect or hydrocephalus. The thyroid gland is atrophic. Soft tissues of the neck are otherwise unremarkable. Grossly no pathologically enlarged cervical lymph nodes. Visualized lung apices are clear. No acute osseous finding. There is however advanced multilevel degenerative spondylosis of the cervical spine. Chronic changes of multiple cervical vertebral laminoplasties. CT/CT angio neck IMPRESSION: There are chronic postoperative changes of a left carotid endarterectomy. The left carotid bifurcation has undergone restenosis with greater than 90% focal narrowing at the origin of the left internal carotid artery. The overall appearance of the vascular stent that crosses the heavily calcified atheromatous plaque at the right carotid bifurcation has remained unchanged with no evidence of restenosis within the lumen of the stent.
[2021-09-21 09:20] LABS: Blood Urea Nitrogen 17 mg/dL (9-16); Estimated Glomerular Filt Rate > 60
[2021-09-21] MEDS: iohexoL 350 MG/ML 100 ML INFUS..BTL IV (10:12)
== END 2021-09-21 07:33 | disposition home or self-care (01) ==
LOC: HO.CT 07:32
PROVIDERS: Visit Provider Surgery Vascular Surgery
DX: I65.23 Occlusion and stenosis of bilateral carotid arteries (principal)
CPT/HCPCS: 36415; 70498; 82565; 84520; Q9967

== ENCOUNTER → 2021-09-29 09:51 | Outpatient (BNVA) | payer MEDICARE, MEDICAID, SELFPAY | PROVIDERS: PCP Family Medicine; Visit Provider Surgery Vascular Surgery | DX: I65.23 Occlusion and stenosis of bilateral carotid arteries (principal); Z79.02 Long term (current) use of antithrombotics/antiplatelets; Z79.82 Long term (current) use of aspirin; Z79.899 Other long term (current) drug therapy | CPT/HCPCS: 99212 ==

== ENCOUNTER → 2022-02-16 10:50 | Outpatient (BNVA) | payer MEDICARE, MEDICAID, SELFPAY | PROVIDERS: PCP Family Medicine; Visit Provider Internal Medicine Cardiovascular Disease | DX: I25.10 Atherosclerotic heart disease of native coronary artery without angina pectoris (principal); E78.5 Hyperlipidemia, unspecified; Z79.899 Other long term (current) drug therapy | CPT/HCPCS: 93005; 99212 ==

== ENCOUNTER 2022-07-07 14:37 | Outpatient (REF) | payer MEDICARE, MEDICAID, SELFPAY ==
--- NOTE | ~2022-07-07 | MM_ITS ---
EXAMINATION: MM SCREENING DIGITAL BREAST TOMOSYNTHESIS, BILATERAL CLINICAL INFORMATION: Screening. Asymptomatic. The lifetime risk of breast cancer based on the Tyrer-Cuzick Model is 6%. COMPARISON: Mammography: 07/01/2021, 06/30/2020, 04/03/2019 TECHNIQUE: Digital breast tomosynthesis is performed in both the craniocaudal and mediolateral oblique views along with computer-aided detection (CAD). Synthesized 2D images are generated from the tomosynthesis. FINDINGS: There are scattered areas of fibroglandular density (ACR BI-RADS breast composition Category b). There are no significant masses, abnormal calcifications, or other abnormalities. Parenchymal pattern is similar to prior studies. There is no developing density or architectural abnormality. Again, there are scattered bilateral vascular, round, rim, and dermal calcifications. The axilla and skin contours are unremarkable. No significant changes. MM/MM tomosynthesis screening BI IMPRESSION: No mammographic evidence of malignancy. ASSESSMENT: BI-RADS 1: Negative RECOMMENDATION: Routine annual mammography screening. This patient's information was entered into a reminder system with a target due date for their next mammogram.
== END 2022-07-07 14:38 | disposition home or self-care (01) ==
LOC: HO.MAMMO 14:37
PROVIDERS: PCP Family Medicine; Visit Provider Family Medicine
DX: Z12.31 Encounter for screening mammogram for malignant neoplasm of breast (principal)
CPT/HCPCS: 77063; 77067

== ENCOUNTER 2022-12-08 13:30 | Outpatient (RCR) | payer MEDICARE, MEDICAID, SELFPAY | END 2023-08-18 10:00 | disposition skilled nursing facility (03) | LOC: HO.WCC 13:30 | PROVIDERS: PCP Family Medicine; Visit Provider Surgery | DX: E11.621 Type 2 diabetes mellitus with foot ulcer (principal); E11.51 Type 2 diabetes mellitus with diabetic peripheral angiopathy without gangrene; I70.235 Atherosclerosis of native arteries of right leg with ulceration of other part of foot; L97.512 Non-pressure chronic ulcer of other part of right foot with fat layer exposed; E11.622 Type 2 diabetes mellitus with other skin ulcer; I87.312 Chronic venous hypertension (idiopathic) with ulcer of left lower extremity; I70.243 Atherosclerosis of native arteries of left leg with ulceration of ankle; L97.322 Non-pressure chronic ulcer of left ankle with fat layer exposed; I70.248 Atherosclerosis of native arteries of left leg with ulceration of other part of lower leg; L97.822 Non-pressure chronic ulcer of other part of left lower leg with fat layer exposed; S81.801D Unspecified open wound, right lower leg, subsequent encounter | CPT/HCPCS: 10060; 11042; 11043; 11045; 11046; 15271; 15272; 87070; 87073; 87076; 87205; 97597; 97598; 99212; 99214; 99215; Q4101 ==

== ENCOUNTER 2023-01-19 08:03 | Outpatient (REF) | payer MEDICARE, MEDICAID, SELFPAY ==
--- NOTE | ~2023-01-19 | US_ITS ---
EXAMINATION: US NONINVASIVE ASSESSMENT OF THE ARTERIES OF BOTH LOWER EXTREMITIES INCLUDING PVR EXAM AND BILATERAL LOWER EXTREMITY DUPLEX. CLINICAL INFORMATION: Atherosclerosis COMPARISON: None TECHNIQUE: Ankle pulse volume recordings, ankle pressure measurements and ankle brachial indices were obtained of the lower extremity arterial system bilaterally in addition to duplex Doppler techniques with wave form analysis and measurement of velocities in the common femoral, profunda femoral, superficial femoral, popliteal, tibial and peroneal arteries. The study was performed only at rest. FINDINGS: RIGHT LE. THE RIGHT ANKLE-BRACHIAL INDEX IS: 0.29 noncompressibility/calcification. >0.97-1.25 = normal - no significant arterial disease 0.75-0.96 = mild peripheral arterial disease 0.5-0.74 = moderate peripheral arterial disease <0.50 = severe peripheral arterial disease <0.30 = critical arterial disease 2. SEGMENTAL PRESSURES (mmHg): Ankle: PT 49 3. PVR WAVEFORMS: Ankle: Dampened 4. DIRECT DUPLEX: Common femoral artery: 228 cm/s, monophasic Profunda femoris artery: 118 cm/s, Multiphasic Superficial femoral artery (proximal): 272 cm/s, monophasic Superficial femoral artery (mid): 113 cm/s, monophasic Superficial femoral artery (distal): 36 cm/s, monophasic Proximal Popliteal artery: 45 cm/s, monophasic Mid posterior tibial artery: 30 cm/s, monophasic Peroneal artery: Not visualized LEFT LE. THE LEFT ANKLE-BRACHIAL INDEX IS: 0.87 (higher of the DP/PT) >0.97-1.25 = normal - no significant arterial disease 0.75-0.96 = mild peripheral arterial disease 0.5-0.74 = moderate peripheral arterial disease <0.50 = severe peripheral arterial disease <0.30 = critical arterial disease 2. SEGMENTAL PRESSURES: Ankle: PT 146, DP 127 3. PVR WAVEFORMS: Ankle: Normal 4. DIRECT DUPLEX: Common femoral artery: 182 cm/s, triphasic Profunda femoris artery: 175 cm/s, biphasic Superficial femoral artery (proximal): 248 cm/s, monophasic Superficial femoral artery (mid): 124 cm/s, monophasic Superficial femoral artery (distal): Stent patent Proximal Popliteal artery: Stent patent Mid posterior tibial artery: 126 cm/s, monophasic Peroneal artery: Not visualized US/US arterial duplex LE BI IMPRESSION: Right lower extremity: 1. Severe peripheral vascular disease. 2. Likely occluded in high-grade stenosis throughout the superficial femoral artery. 3. Peroneal artery not visualized, likely occluded. Left lower extremity: 1. Mild peripheral arterial disease, particularly within the proximal SFA. 2. Patent distal SFA and popliteal stent.
== END 2023-01-19 08:04 | disposition home or self-care (01) ==
LOC: HO.US 08:03
PROVIDERS: PCP Family Medicine; Visit Provider Surgery
DX: I70.223 Atherosclerosis of native arteries of extremities with rest pain, bilateral legs (principal)
CPT/HCPCS: 93923; 93925

== ENCOUNTER 2023-01-20 13:56 | Outpatient (AMB) | payer MEDICARE, MEDICAID, SELFPAY ==
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
== END 2023-01-20 15:00 | disposition home or self-care (01) ==
PROVIDERS: PCP Family Medicine; Visit Provider Surgery Vascular Surgery
DX: I73.9 Peripheral vascular disease, unspecified (principal); I65.23 Occlusion and stenosis of bilateral carotid arteries
CPT/HCPCS: 99214

== ENCOUNTER → 2023-01-20 13:56 | Outpatient (BNVA) | payer MEDICARE, MEDICAID, SELFPAY | PROVIDERS: PCP Family Medicine; Visit Provider Surgery Vascular Surgery | DX: I73.9 Peripheral vascular disease, unspecified (principal); I65.23 Occlusion and stenosis of bilateral carotid arteries; I25.10 Atherosclerotic heart disease of native coronary artery without angina pectoris; I10 Essential (primary) hypertension; G62.9 Polyneuropathy, unspecified; L97.829 Non-pressure chronic ulcer of other part of left lower leg with unspecified severity; L97.819 Non-pressure chronic ulcer of other part of right lower leg with unspecified severity; L97.519 Non-pressure chronic ulcer of other part of right foot with unspecified severity; Z95.820 Peripheral vascular angioplasty status with implants and grafts | CPT/HCPCS: 99212 ==

== ENCOUNTER 2023-02-02 06:05 | Day surgery (SDC) | payer MEDICARE, MEDICAID, SELFPAY ==
[2023-02-02] VITALS (11 sets, daily range): BP systolic 109–152; BP diastolic 43–71; PULSE 71–78; RESP 16–18; TEMP 36.8–36.9; O2SAT 96–98; BMI 33.2
[2023-02-02 06:56] LABS: MANUAL DIFF FLAG NO
[2023-02-02 06:59] LABS: Basophils Percent Auto 0.3 % (0-2); Eosinophils Absolute Auto 0.2 X10*3/uL (0.0-0.4); Eosinophils Percent Auto 2.1 % (0-4); Hematocrit 40.1 % (37.0-47.0); Hemoglobin 12.5 g/dl (12.0-16.0); Imm Gran Abs Auto 0.03 X10*3/uL (0.00-0.03); Imm Gran Pct Auto 0.3 % (0.0-0.4); Lymphocytes Absolute Auto 1.5 X10*3/uL (1.2-4.9); Lymphocytes Percent Auto 14.8 % (20-40); Mean Corpuscular HGB Conc 31.2 g/dl (31.0-35.0); Mean Corpuscular Hemoglobin 28.7 pg (27.0-33.0); Mean Platelet Volume 9.9 fL (9.4-12.3); Monocytes Percent Auto 9.3 % (2-11); Neutrophils Absolute Auto 7.6 x10*3/uL (2.0-8.3); Neutrophils Percent Auto 73.2 % (45-73); Platelet Count 268 X10*3/uL (160-400); Red Blood Count 4.36 X10*6/uL (4.20-5.50); Red Cell Distribution Width 13.2 % (11.0-16.0); White Blood Count 10.3 X10*3/uL (4.8-10.8)
[2023-02-02] MEDS: 0.9 % Sodium Chloride 1,000 ML 100 ML IVCONT (07:01)
[2023-02-02 07:09] LABS: Blood Urea Nitrogen 15 mg/dL (9-16); Creatinine Clr Calc Pharmacy 93.8; Estimated Glomerular Filt Rate > 60
--- NOTE | 2023-02-02 09:12 | P.OP_ITS ---
Operative Note Operative Note Date of Service: 02/02/23 Narrative: Angiogram report from [facility] Preoperative diagnosis: Atherosclerosis of right lower extremity with activity limiting claudication Postoperative diagnosis: Same Procedure: 1. Ultrasound-guided right common femoral access 2. Aortogram with bilateral lower extremity runoff Surgeon:Karsten Abraham M.D., FACS, RPVI Metallurgy Teacher:None Anesthesia: Local with moderate conscious sedation. Total intraservice moderate sedation time was 33 minutes. I monitored the patient's level of consciousness and physiologic status continuously throughout the procedure. Specimens:none Drains:none Estimated blood loss: Less than 10 ml Implant: None Indications: Pleasant 67-year-old female presents for evaluation regarding activity limiting claudication. Noninvasive testing was concerning for right lower extremity SFA disease. She now presents for endovascular intervention. The patient has signed the informed consent after reviewing risks, complications, benefits, and alternatives previously discussed with the patient. The patient was given the opportunity to ask any additional questions or voice any concerns. All questions were answered to the patient's satisfaction. Procedure in detail: Patient was brought to the angiography suite prior to which a time-out was called for patient identification and site verification. Bilateral groins were prepped and draped in the standard surgical fashion. Under ultrasound guidance left common femoral was punctured with micro puncture needle and wire. Subsequently a precision 4 Estonian sheath was then placed. Bentson wire was advanced to the level of the aorta. 4 Estonian Flush catheter was brought up and parked at the level of the renal arteries. Aortogram was then undertaken. Catheter was brought down to the level of the iliac bifurcation. Iliacs were subsequently imaged. Catheter was then brought in up and over to the right side profundus femorals. Runoff study was then undertaken. It was recognize there was a total SFA occlusion. No intervention was indicated. We removed the catheter. Through the sheath we did runoff study of the left lower extremity. No intervention was indicated. Catheter wire sheath were removed. Direct pressure was held for 10 minutes. Patient tolerated the procedure well. Returned to recovery with stable vitals. Interpretation of films: 1. Ultrasound demonstrates appropriate femoral puncture. Image of which was saved. 2. Aortogram demonstrates appropriate caliber aorta. Minimal disease. Appropriate take-off of the renals. 3. Iliac images demonstrate no significant disease 4. Right Leg Common femoral artery: Calcified at the distal aspect of it Profundus Femoris: No significant disease Superficial femoral artery: Total occlusion Popliteal artery (p1,p2,p3): Reconstitutes at the P1 but the P2 segment is occluded root Angelito opens at the P3 segment Anterior tibial artery: Patent all the way to the level of the foot but it appears to feed via collaterals at the origin. Peroneal artery: Occluded Posterior tibial artery: Unclear origin but goes down to the level of the foot Dorsalis pedis/plantar arch: Incomplete 5. Left Leg Common femoral artery: No significant disease Profundus Femoris: No significant disease Superficial femoral artery: Patent stent but small in caliber. Popliteal artery (p1,p2,p3): Stent all the way goes down into the P2 segment Anterior tibial artery: Patent Peroneal artery: Patent Posterior tibial artery: Patent Dorsalis pedis/plantar arch: Incomplete Conclusion: 1. Patient will require right femoral to below-knee popliteal bypass if indicated. 2. Anticoagulation status: No change This note is constructed using voice recognition software. While every effort has been made to ensure accuracy, family development extension specialist errors may have been included. Thank you for allowing me to participate in the care of your patient. Yours sincerely, Karsten Abraham MD, FACS, R.P.V.I.
== END 2023-02-02 12:32 | disposition home or self-care (01) ==
PROVIDERS: PCP Family Medicine; Visit Provider Surgery Vascular Surgery
DX: I70.211 Atherosclerosis of native arteries of extremities with intermittent claudication, right leg (principal); I65.23 Occlusion and stenosis of bilateral carotid arteries; I25.10 Atherosclerotic heart disease of native coronary artery without angina pectoris; Z95.5 Presence of coronary angioplasty implant and graft; I69.398 Other sequelae of cerebral infarction; H53.9 Unspecified visual disturbance; E78.5 Hyperlipidemia, unspecified; Z90.3 Acquired absence of stomach [part of]; Z98.890 Other specified postprocedural states
CPT/HCPCS: 36247; 36415; 75630; 76937; 82565; 84520; 85025; 99152; 99153; C1769; C1887; J1643; J2250; J3010; Q9967

== ENCOUNTER → 2023-02-02 06:05 | Outpatient (BNV) | payer MEDICARE, MEDICAID, SELFPAY | PROVIDERS: PCP Family Medicine; Visit Provider Surgery Vascular Surgery | DX: I70.211 Atherosclerosis of native arteries of extremities with intermittent claudication, right leg (principal) | CPT/HCPCS: 36217; 75625; 75716; 76937; 99152 ==

== ENCOUNTER 2023-02-22 09:03 | Outpatient (AMB) | payer MEDICARE, MEDICAID, SELFPAY ==
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
== END 2023-02-22 09:51 | disposition home or self-care (01) ==
PROVIDERS: PCP Family Medicine; Visit Provider Surgery Vascular Surgery
DX: I73.9 Peripheral vascular disease, unspecified (principal); I65.23 Occlusion and stenosis of bilateral carotid arteries; I83.12 Varicose veins of left lower extremity with inflammation
CPT/HCPCS: 99214

== ENCOUNTER → 2023-02-22 09:03 | Outpatient (BNVA) | payer MEDICARE, MEDICAID, SELFPAY | PROVIDERS: PCP Family Medicine; Visit Provider Surgery Vascular Surgery | DX: I73.9 Peripheral vascular disease, unspecified (principal); I83.12 Varicose veins of left lower extremity with inflammation; I65.23 Occlusion and stenosis of bilateral carotid arteries | CPT/HCPCS: 99212 ==

== ENCOUNTER 2023-03-04 10:22 | Outpatient (REF) | payer MEDICARE, MEDICAID, SELFPAY ==
--- NOTE | ~2023-03-04 | US_ITS ---
EXAMINATION: LEFT LOWER EXTREMITY VENOUS ULTRASOUND (Reflux Exam) CLINICAL INDICATION: leg pain and varicose veins. COMPARISON: None. TECHNIQUE: Color flow triplex imaging and compression Doppler was performed to evaluate both the deep and the superficial systems on the left. To evaluate the superficial system, the examination was performed in the upright position. Color-flow Doppler ultrasound and compression ultrasound were utilized. In addition, maneuvers were utilized to demonstrate reflux. FINDINGS: DEEP VENOUS ULTRASOUND OF THE LEFT LOWER EXTREMITY: Respiratory variation, normal compression and augmented flow are noted in the left common femoral vein as well as the left popliteal vein and there is no evidence of deep venous thrombosis at these locations. There is no evidence of reflux in the deep system in either the common femoral vein or the popliteal vein. . There is no evidence of a Brunner's cyst. 4SUPERFICIAL ULTRASOUND WITH DOPPLER OF LEFT LOWER EXTREMITY: Left great saphenous vein at the saphenofemoral junction measures 10 mm, at the mid thigh 6 mm, [id number] 5 mm, nxphg-[id number]-pufm 4 mm, at mid calf 4 mm and at the ankle measures 4 mm. There is once second reflux in the left greater saphenous vein in the mid calf. There is an accessory lateral greater saphenous vein that measures 3 to 4 mm and does not demonstrate reflux. The left small saphenous vein measures 3-5 mm and shows no reflux. There is a asset protection representative in the calf that measures 4 mm and does not demonstrate reflux. There are multiple varicosities. There are 3 mm varicosities in the calf, demonstrating 0.7 second reflux in the mid calf and greater than 3 seconds reflux in the distal calf. US/US venous duplex LE LT IMPRESSION: 1. No evidence of reflux or thrombus in the common femoral veins or popliteal veins bilaterally. 2. Left greater saphenous vein reflux in the mid calf. Varicosities in the mid and distal calf that demonstrate reflux.
== END 2023-03-04 10:23 | disposition home or self-care (01) ==
LOC: HO.US 10:22
PROVIDERS: PCP Family Medicine; Visit Provider Surgery Vascular Surgery
DX: I83.12 Varicose veins of left lower extremity with inflammation (principal)
CPT/HCPCS: 93971

== ENCOUNTER 2023-03-15 12:51 | Outpatient (AMB) | payer MEDICARE, MEDICAID, SELFPAY ==
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
== END 2023-03-15 13:42 | disposition home or self-care (01) ==
PROVIDERS: PCP Family Medicine; Visit Provider Surgery Vascular Surgery
DX: I83.009 Varicose veins of unspecified lower extremity with ulcer of unspecified site (principal); I73.9 Peripheral vascular disease, unspecified; I65.23 Occlusion and stenosis of bilateral carotid arteries; Z95.828 Presence of other vascular implants and grafts
CPT/HCPCS: 99214

== ENCOUNTER → 2023-03-15 12:51 | Outpatient (BNVA) | payer MEDICARE, MEDICAID, SELFPAY | PROVIDERS: PCP Family Medicine; Visit Provider Surgery Vascular Surgery | DX: I83.12 Varicose veins of left lower extremity with inflammation (principal); I73.9 Peripheral vascular disease, unspecified; I65.23 Occlusion and stenosis of bilateral carotid arteries | CPT/HCPCS: 99212 ==

== ENCOUNTER 2023-03-23 16:00 | Outpatient (REF) | payer MEDICARE, MEDICAID, SELFPAY | END 2023-03-23 16:01 | disposition home or self-care (01) | LOC: HO.LNP 16:00 | PROVIDERS: Visit Provider Surgery | DX: S91.301A Unspecified open wound, right foot, initial encounter (principal); X58.XXXA Exposure to other specified factors, initial encounter; Y93.9 Activity, unspecified; Y92.9 Unspecified place or not applicable; Y99.9 Unspecified external cause status | CPT/HCPCS: 87070; 87073; 87077; 87186; 87205 ==

== ENCOUNTER 2023-03-31 13:49 | Outpatient (REF) | payer MEDICARE, MEDICAID, SELFPAY ==
[2023-03-31 15:25] LABS: Blood Urea Nitrogen 23 mg/dL (9-16); Estimated Glomerular Filt Rate > 60
== END 2023-03-31 13:50 | disposition home or self-care (01) ==
LOC: HO.LAB 13:49
PROVIDERS: Visit Provider Surgery Vascular Surgery
DX: I73.9 Peripheral vascular disease, unspecified (principal)
CPT/HCPCS: 36415; 82565; 84520

== ENCOUNTER 2023-04-05 11:28 | Outpatient (REF) | payer MEDICARE, MEDICAID, SELFPAY ==
--- NOTE | ~2023-04-05 | CT_ITS ---
EXAMINATION: CT ANGIOGRAPHY LEGS WITH RUNOFF CLINICAL INFORMATION: Peripheral vascular disease, unspecified, nonhealing ulcers right leg COMPARISON: Angiogram 02/02/2023 TECHNIQUE: CT angiography of the abdomen, pelvis, and lower extremities was performed following the uneventful intravenous administration of 100 mL Omnipaque 350. Coronal and sagittal reformatted images were generated from the source data as were coronal and sagittal MIPS images. This CT examination was performed using dose optimization techniques as appropriate, variously including the following: *Automated exposure control *Adjustment of mA and/or kV according to patient size (this includes techniques or standardized protocols for targeted exams where dose is matched to indication/reason for exam; i.e. extremities or head) *Use of iterative reconstruction technique DLP: 873 mGy-cm FINDINGS: Distal thoracic aorta is normal in caliber. The abdominal aorta is normal in caliber. There is moderate eccentric atherosclerotic disease without luminal narrowing. No evidence of aneurysm, dissection or other acute aortic syndrome. Iliac bifurcation is widely patent. There is eccentric calcification of the common iliac arteries without stenosis. On the right there is stenosis of the origin of the internal iliac artery. The external iliac is well opacified. Common femoral artery is approximately opacified and at the level of the femoral head there is calcific disease resulting in at least moderate stenosis. Profunda femoris is patent from its origin. There is multifocal calcific disease resulting in occlusion of the proximal superficial femoral artery with some degree of opacification at its midportion via collaterals, though the distal aspect is occluded. Origin of the popliteal artery is occluded. There is short segment reconstitution of the vessel proximal to the condyles, though beyond there is extensive calcific disease extending to the joint space where there is possible focal occlusion. The P3 segment of the vessel is reconstituted, though is diminutive and there is multifocal calcific disease resulting in multifocal stenosis extending into the origin of the runoff vessels. There is probable occlusion at the origin of the anterior tibial artery and the proximal aspect of the tibial peroneal trunk. There is reconstitution of the runoff vessels at the level the proximal thigh and there is multifocal disease resulting in probable multifocal stenosis distally. The degree of calcification contrast bolus limits evaluation for degree of stenosis. The anterior tibial is opacified at the level of the ankle as is the posterior tibial On the left common iliac is normal in caliber. Internal iliac is patent. The external iliac is patent without stenosis. Common femoral artery is widely patent. Profunda femoris is patent. There is moderate to severe focal stenosis of the origin of the superficial femoral artery. There are stents within the mid to distal superficial femoral artery extending into the popliteal to the level of the joint space. There is either severe in-stent stenosis or occlusion of the stent construct. The P3 segment of the posterior tibial artery is not well opacified. Evaluation of the runoff vessels is limited secondary to contrast bolus timing and extensive calcification. There is at least some degree of opacification of the distal branches of the anterior tibial and posterior tibial arteries. Celiac origin is widely patent and its branching pattern is unremarkable. There is calcification at the origin of the annulus and within the proximal superior mesenteric artery without significant stenosis. The inferior mesenteric artery is patent. There are 2 right renal arteries and 2 left renal arteries which are well-opacified and without stenosis. There is an unremarkable appearance of the venous structures for an arterial phase of contrast. Linear atelectasis at the lung bases which are otherwise unremarkable. The imaged heart is unremarkable. Liver is normal in size, shape and overall attenuation. No focal hepatic lesions are identified. There is no intrahepatic duct dilation. Gallbladder surgically absent. There is dilation of the common duct to at least 1 cm in diameter which could represent postcholecystectomy change. Unremarkable appearance of the pancreas. No pancreatic duct dilation. Adrenal glands are normal and no nodules are seen. Kidneys are symmetric in overall size and enhancement. There is a punctate cortical calcification on the left. No renal calculi. No hydronephrosis. No hydroureter. Normal partially distended bladder contour. Patient is post hysterectomy. No adnexal lesions are seen. Small hiatus hernia, otherwise the distal esophagus is unremarkable. There are post surgical changes relating to sleeve gastrectomy. Small and large bowel are normal in caliber. No bowel wall inflammatory changes are seen. Normal appendix. No free intraperitoneal fluid. No significant hernia of the abdominal wall. There are mildly prominent inguinal lymph nodes which may be reactive. Multifocal degenerative change of the imaged thoracolumbar spine with loss of disc space and endplate changes. There is calcified disc osteophyte complex formation at the L4-L5 and L5-S1 levels as well as facet arthropathy. There are degenerative changes of the hips. No acute or aggressive bony abnormalities are seen. Mild bilateral lower extremity edema. CT/CT angio abd aorta runoff IMPRESSION: There is extensive peripheral arterial vascular disease. On the right there is moderate stenosis of the common femoral artery at the level of the femoral head, multifocal stenosis and occlusion of the superficial femoral artery with some reconstitution of the popliteal artery which also has multifocal disease in either severe stenosis or occlusion at the level of the joint space. There is probable occlusion at the origin of the anterior tibial artery and there is multifocal disease of the runoff vessels which are difficult to evaluate whether some degree of opacification of the distal anterior tibial and posterior tibial arteries. On the left there is moderate to severe focal stenosis at the origin of the superficial femoral artery, there is an extensive stent construct the mid to distal superficial femoral artery extending to the P2 segment of the popliteal artery which appears occluded. There is limited evaluation of the runoff vessels, at least some distal branches of the anterior tibial and posterior tibial arteries appear to be patent. Dilation of the common duct up to 1 cm which could represent postcholecystectomy change. Could correlate with bilirubin and alkaline phosphatase. Minimal hiatus hernia.
[2023-04-05] MEDS: iohexoL 350 MG/ML 100 ML INFUS..BTL IV (12:33)
== END 2023-04-05 11:29 | disposition home or self-care (01) ==
LOC: HO.CT 11:28
PROVIDERS: PCP Family Medicine; Visit Provider Surgery Vascular Surgery
DX: I73.9 Peripheral vascular disease, unspecified (principal)
CPT/HCPCS: 75635; Q9967

== ENCOUNTER 2023-04-07 12:55 | Outpatient (AMB) | payer MEDICARE, MEDICAID, SELFPAY ==
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
== END 2023-04-07 13:42 | disposition home or self-care (01) ==
PROVIDERS: PCP Family Medicine; Visit Provider Surgery Vascular Surgery
DX: I73.9 Peripheral vascular disease, unspecified (principal)
CPT/HCPCS: 99214

== ENCOUNTER → 2023-04-07 12:55 | Outpatient (BNVA) | payer MEDICARE, MEDICAID, SELFPAY | PROVIDERS: PCP Family Medicine; Visit Provider Surgery Vascular Surgery | DX: I73.9 Peripheral vascular disease, unspecified (principal) | CPT/HCPCS: 99212 ==

== ENCOUNTER 2023-04-15 13:47 | Outpatient (REF) | payer MEDICARE, MEDICAID, SELFPAY ==
--- NOTE | ~2023-04-15 | US_ITS ---
EXAMINATION: US VENOUS ULTRASOUND WITH VEIN MAPPING, RIGHT CLINICAL INFORMATION: None muscles of the right lower extremity COMPARISON: None available. TECHNIQUE: Ultrasound of the great saphenous vein is performed from the hip to the calf with diameter and depth measurements. FINDINGS: GREAT SAPHENOUS VEIN: Saphenofemoral Junction: 0.7 cm; Depth: 1.7 cm Proximal Thigh: 0.5 cm; Depth: 1.4 cm Mid Thigh: 0.3 cm; Depth: 2.2 cm Above Knee: 0.3 cm; Depth: 2.3 cm At Knee: 0.3 cm; Depth: 1.6 cm Proximal calf: 0.3 cm; Depth: 1.5 cm Mid Calf: 0.3 cm; Depth: 1.0 cm Distal calf: 0.3 cm; Depth: 0.8 cm US/US venous duplex LE RT IMPRESSION: Right great saphenous vein mapping as described above
== END 2023-04-15 13:48 | disposition home or self-care (01) ==
LOC: HO.US 13:47
PROVIDERS: PCP Family Medicine; Visit Provider Surgery Vascular Surgery
DX: Z13.89 Encounter for screening for other disorder (principal)
CPT/HCPCS: 93971

== ENCOUNTER 2023-04-18 05:54 | Outpatient (BNV) | payer MEDICARE, MEDICAID, SELFPAY | END 2023-04-20 07:00 | PROVIDERS: Admitting Provider Surgery Vascular Surgery; PCP Family Medicine; Visit Provider Internal Medicine Cardiovascular Disease | DX: I35.0 Nonrheumatic aortic (valve) stenosis (principal) | CPT/HCPCS: 93306 ==

== ENCOUNTER 2023-04-18 05:54 | Outpatient (BNV) | payer MEDICARE, MEDICAID, SELFPAY | END 2023-04-19 20:13 | PROVIDERS: Admitting Provider Surgery Vascular Surgery; PCP Family Medicine; Visit Provider Internal Medicine Cardiovascular Disease | DX: R00.0 Tachycardia, unspecified (principal); R94.31 Abnormal electrocardiogram [ECG] [EKG] | CPT/HCPCS: 93010 ==

== ENCOUNTER 2023-04-18 05:54 | Inpatient (IN) | payer MEDICARE, MEDICAID, SELFPAY ==
[2023-04-13 13:05] VITALS: BP 120/57; PULSE 72; RESP 16; O2SAT 100; BMI 33.4
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
[2023-04-13 14:57] LABS: Hematocrit 37.4 % (37.0-47.0); Mean Corpuscular HGB Conc 32.1 g/dl (31.0-35.0); Mean Corpuscular Hemoglobin 29.3 pg (27.0-33.0); Mean Corpuscular Volume 91.4 fL (80.0-98.0); Mean Platelet Volume 10.1 fL (9.4-12.3); Platelet Count 254 X10*3/uL (160-400); Red Blood Count 4.09 X10*6/uL (4.20-5.50); Red Cell Distribution Width 13.6 % (11.0-16.0); White Blood Count 14.6 X10*3/uL (4.8-10.8)
[2023-04-13 15:01] LABS: Prothrombin Time 11.7 SEC (11.1-13.3)
[2023-04-13 15:04] LABS: Partial Thromboplastin Time 36.6 SEC (26.0-36.4)
[2023-04-13 15:13] LABS: Anion Gap 10 (12-20); Blood Urea Nitrogen 22 mg/dL (9-16); Calcium 9.2 mg/dL (8.4-10.2); Carbon Dioxide 27 mmol/L (22-29); Chloride 106 mmol/L (96-108); Estimated Glomerular Filt Rate > 60; Glucose Random 99 mg/dL (60-115); Potassium 4.4 mmol/L (3.3-5.1); Sodium 139 mmol/L (135-145)
[2023-04-18] VITALS (17 sets, daily range): BP systolic 104–142; BP diastolic 34–78; PULSE 72–96; RESP 12–20; TEMP 36–36.9; O2SAT 91–100
--- NOTE | ~2023-04-18 | XR_ITS ---
EXAMINATION: XR CHEST CLINICAL INFORMATION: Shortness of breath COMPARISON: CT abdomen pelvis and bilateral lower extremities 04/05/2023, chest radiograph 07/30/2016 TECHNIQUE: Frontal view of the chest was obtained. FINDINGS: Heart size upper limits of normal. No evidence of CHF. Peribronchial thickening is present. Bibasilar atelectasis is seen as can be seen on the 04/05/2023 CT scan. No focal consolidations or pleural effusions. Surgical clips are present in the lower neck.. XR/XR chest 1V IMPRESSION: Peribronchial thickening and bibasilar atelectasis. No acute intrathoracic disease.
--- NOTE | ~2023-04-18 | CT_ITS ---
EXAMINATION: CT head/brain wo IV con CLINICAL INFORMATION: Reason for Exam stroke COMPARISON: CT head 06/08/2018 TECHNIQUE: Contiguous axial imaging was performed from the skull base to vertex without intravenous contrast. Sagittal and coronal reformatted images were obtained. This CT examination was performed using dose optimization techniques as appropriate, variously including the following: * Automated exposure control * Adjustment of mA and/or kV according to patient size (this includes techniques or standardized protocols for targeted exams where dose is matched to indication/reason for exam; i.e. extremities or head) Use of iterative reconstruction technique DLP: 867 mGy-cm FINDINGS: The ventricles and sulci are normal in size and configuration without significant volume loss or hydrocephalus. Stable appearance of chronic infarct in the right temporo-occipital lobe with exvacuodilatation of the right ventricular atrium. Stable additional areas of patchy hypodensity throughout the subcortical and periventricular white matter, which are nonspecific. Redemonstrated gliosis traversing the body of the corpus callosum. Suspected chronic lacunar infarcts in the deep brownlee nuclei again seen. No new territorial loss of brownlee-white differentiation. No acute intracranial hemorrhage or extra-axial fluid collection. No mass lesion, significant mass effect, or herniation pattern. Bilateral proptosis on the basis of increased intraoral fat deposition and may be seen in the setting of thyroid eye disease and can be correlated clinically with thyroid function tests. Slight exotropia of the left globe. Paranasal sinuses and mastoid air cells are well aerated. Osseous structures are intact. CT/CT head/brain wo IV con IMPRESSION: No new acute intracranial abnormality. 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 Bilateral proptosis on the basis of increased intraoral fat deposition and may be seen in the setting of thyroid eye disease and can be correlated clinically with thyroid function tests. Slight exotropia of the left globe.
[2023-04-18 06:41] LABS: INTERNATIONAL NORM RATIO 0.9 (0.9-1.1); Prothrombin Time 11.2 SEC (11.1-13.3)
[2023-04-18 06:44] LABS: Partial Thromboplastin Time 36.8 SEC (26.0-36.4)
[2023-04-18 06:48] LABS: Hematocrit 38.8 % (37.0-47.0); Hemoglobin 12.1 g/dl (12.0-16.0); Mean Corpuscular HGB Conc 31.2 g/dl (31.0-35.0); Mean Corpuscular Hemoglobin 28.8 pg (27.0-33.0); Mean Corpuscular Volume 92.4 fL (80.0-98.0); Mean Platelet Volume 10.2 fL (9.4-12.3); Platelet Count 261 X10*3/uL (160-400); Red Cell Distribution Width 13.4 % (11.0-16.0); White Blood Count 8.2 X10*3/uL (4.8-10.8)
[2023-04-18 06:53] LABS: Anion Gap 13 (12-20); Blood Urea Nitrogen 21 mg/dL (9-16); Carbon Dioxide 27 mmol/L (22-29); Chloride 108 mmol/L (96-108); Estimated Glomerular Filt Rate > 60; Glucose Random 102 mg/dL (60-115); Sodium 144 mmol/L (135-145)
[2023-04-18] MEDS: Lactated Ringers 1,000 ML 100 ML IVCONT ×2 (07:07→14:11)
[2023-04-18 07:12] LABS: COVID-19 Test Negative (Negative); IDNOW Serial# 9DB6401D
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
--- NOTE | 2023-04-18 07:47 | MHC.SHP ---
Pre-Procedural Eval Section A Date of Service: 04/18/23 The patient is an INPATIENT: No Changes since office visit: Yes Patient answered all questions The History & Physical has been completed within 30 days and I have reviewed it.: Yes Section B Chief Complaint: post op Allergies: Allergies Allergy/AdvReac Type Severity Reaction Status Date / Time No Known Allergies Allergy Verified 04/13/23 13:35 Plan I have reviewed the history and physical and performed a pertinent physical examination on my patient. No changes have occurred unless specified. Time Spent With Patient Time: Total time managing care of this patient today ____ minutes.
--- NOTE | 2023-04-18 13:14 | P.OP_ITS ---
Operative Note Operative Note Date of Service: 04/18/23 Narrative: Operative note by [facility] Preoperative diagnosis: Atherosclerosis with nonhealing right lower extremity ulcer Postoperative diagnosis: Same Procedure: 1. Right femoral to below-knee popliteal bypass with reverse saphenous vein graft 2. Right common femoral endarterectomy and remote endarterectomy of external iliac artery 3. Right tibioperoneal trunk remote endarterectomy 4. Thrombectomy of peroneal and posterior tibial arteries Surgeon:Karsten Abraham M.D. Vocational Rehabilitation Supervisor: Dr. Little Anesthesia: General by Dr. Watters Specimens: 2 Drains: None Estimated blood loss: 100 mL Indications: Complex 67-year-old female presents for nonhealing right lower extremity ulcers. She has had prior angiogram and it demonstrated occlusion the SFA and behind knee popliteal. She now presents for femoral to below-knee popliteal bypass with vein grafting. The patient has signed the informed consent after reviewing risks, complications, benefits, and alternatives previously discussed with the patient. The patient was given the opportunity to ask any additional questions or voice any concerns. All questions were answered to the patient's satisfaction. Procedure in detail: Patient was brought to the operating room prior to which a time-out was called for patient identification site verification. Right leg was prepped and draped in standard surgical fashion. We 1st turned our attention to the below-knee popliteal artery. We made an incision approximately 1 cm behind the posterior tibial border to get down between the soleus and gastrocnemius. We dissected this area clear. Portion of the semimembranosus had to be taken. Once this was all accomplished we then were able to identify the popliteal artery. This was dissected out and dissected down to the anterior tibial trunk and the tibioperoneal trunk. Once this was all accomplished we then turned our attention to the right common femoral artery. We dissected this through a longitudinal incision. We were able to easily identify the common femoral encircled this. Once this was all accomplished we then turned our attention to the great saphenous vein. This had been premarked by the ultrasound team on Tuesday prior to the surgery. We carried out 2 additional separate skip incisions along the length of the great saphenous vein. From the common femoral junction this was harvested the junction was ligated with a 2-0 silk suture ligature. Once we did that we dissected this out we clipped the side branches. We brought this all the way down through the distal portion of the below-knee popliteal incision once the vein was harvested in its entirety was examined. Side branches were ligated. Bleeding sites were closed over with 7 0 Prolene sutures. Once this was all accomplished and we obtained a good length of vein. We then turned our attention to the common femoral. We 1st administered 7000 using units of systemic heparin. After 5 minutes of circulation time we clamped the proximal and distal portions of the common femoral. Arteriotomy was made. He is noted that it was extremely calcified. Endarterectomy of the common femoral and remote endarterectomy of the external iliac had to be undertaken in order to obtain good flow. Once this was all accomplished we sutured on the harvested vein in a reverse fashion. This was trimmed to appropriate size and spatulated. Once this was accomplished we circumferentially anastomosed with a 6 0 Prolene. Once this was all accomplished we tunneled from the common femoral to the above knee popliteal incision in normal anatomic position. From there once it was brought out we brought it in between the 2 condyles between the heads of the gastrocs to the below-knee popliteal region. Once in appropriate position the graft was stretched out along with the leg. This was trimmed to appropriate size. We then obtained proximal and distal control of the popliteal artery. We made an arteriotomy and was significantly calcified. We were able to remotely we endarterectomized this area. We did not obtain good flow and return. We then used a 3. Xiao to thrombectomize the peroneal and posterior tibial arteries. Once this was accomplished we did obtain good back bleeding. In a similar fashion we circumferentially anastomosed the distal anastomosis with a 6 0 Prolene in. Prior to closure was flushed clear. Once it was all closed good flow was obtained. We did notice with a Doppler distal to the anastomosis at the TP trunk we had an excellent signal once the graft was occluded this signal did diminished. Once this was all accomplished wounds were thoroughly irrigated out. At the groin incision and the below-knee popliteal incision Tisseel sealant was then placed. We then closed all incisions deep layer with 2-0 Polysorb superficial layer with 3-0 poly Sorb and finally skin with skin clips. At the end the case sponge instrument counts were correct. Patient tolerated the procedure well. Returned to recovery with stable vitals. This note is constructed using voice recognition software. While every effort has been made to ensure accuracy, compressed yeast supervisor errors may have been included. Thank you for allowing me to participate in the care of your patient. Yours sincerely, Karsten Abraham MD, FACS, R.P.V.I.
--- NOTE | 2023-04-18 13:53 | PHA.MEDREC ---
Pharmacy Consult ? Medication Reconciliation Pharmacy has reviewed the medication reconciliation done by RN
[2023-04-18] MEDS: ceFAZolin Sodium/Dextrose,Iso 2 GM/50 ML PIGGYBACK IV ×2 (14:00→15:16)
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
[2023-04-18] MEDS: 0.9 % Sodium Chloride Flush 3 ML SYRINGE IVFLUSH (15:16)
[2023-04-18] MEDS: fentaNYL citrate/PF 100 MCG/2 ML VIAL 50 MCG IVPUSH (16:02)
[2023-04-18] MEDS: Pregabalin 200 MG CAPSULE PO (20:22)
[2023-04-18] MEDS: Aspirin Enteric Coated 81 MG TABLET.DR PO (20:22)
[2023-04-18] MEDS: Albumin Human 25 % 100 ML IV ×2 (21:16→22:10)
[2023-04-19] VITALS (21 sets, daily range): BP systolic 94–200; BP diastolic 37–89; PULSE 74–131; RESP 12–26; TEMP 36–37.1; O2SAT 77–98; BMI 35.8
[2023-04-19] MEDS: fentaNYL citrate/PF 100 MCG/2 ML VIAL 50 MCG IVPUSH (00:17)
[2023-04-19] MEDS: Lactated Ringers 1,000 ML 100 ML IVCONT (00:21)
[2023-04-19] MEDS: oxyCODONE HCl Immed Release 5 MG TABLET PO ×4 (04:13→18:28)
[2023-04-19] MEDS: Acetaminophen 325 MG TABLET 650 MG PO (04:13)
--- NOTE | 2023-04-19 04:33 | PC.NURSE ---
Pt admitted to ICU on previous shift from PACU. Upon initial assessment at 1999- pt A&Ox4, calm/cooperative. Afebrile. NSR on tele, HR 70s. A-line to L radial with appropriate waveform, SBP 90s, MAP 50s- given albumin 25% 100 mL IV x2. +2 BLE edema L>R. +peripheral pulses via Doppler. +CSM to BLE. SpO2 > 92% on room air. Tolerating PO intake. Urinary catheter in place, UOP approx 30-50 mL/hr. No BM. RLE surgical dsgs C/D/I. L foot dsg in place from [facility] per pt. Pt aware of plan of care. Bed locked in low position, call novoa in reach.
[2023-04-19 05:05] LABS: MANUAL DIFF FLAG NO
[2023-04-19 05:07] LABS: Basophils Percent Auto 0.1 % (0-2); Hematocrit 26.6 % (37.0-47.0); Hemoglobin 8.4 g/dl (12.0-16.0); Imm Gran Abs Auto 0.02 X10*3/uL (0.00-0.03); Imm Gran Pct Auto 0.2 % (0.0-0.4); Lymphocytes Absolute Auto 1.7 X10*3/uL (1.2-4.9); Lymphocytes Percent Auto 17.2 % (20-40); Mean Corpuscular HGB Conc 31.6 g/dl (31.0-35.0); Mean Corpuscular Hemoglobin 29.1 pg (27.0-33.0); Mean Platelet Volume 10.1 fL (9.4-12.3); Monocytes Absolute Auto 0.9 X10*3/uL (0.1-1.2); Monocytes Percent Auto 9.6 % (2-11); Neutrophils Percent Auto 72.9 % (45-73); Platelet Count 155 X10*3/uL (160-400); Red Blood Count 2.89 X10*6/uL (4.20-5.50); Red Cell Distribution Width 13.9 % (11.0-16.0); White Blood Count 9.6 X10*3/uL (4.8-10.8)
[2023-04-19 05:22] LABS: Albumin Level 3.3 g/dL (3.5-5.0); Anion Gap 12 (12-20); Blood Urea Nitrogen 15 mg/dL (9-16); Carbon Dioxide 25 mmol/L (22-29); Chloride 108 mmol/L (96-108); Creatinine Clr Calc Pharmacy 112.5; Estimated Glomerular Filt Rate > 60; Glucose Random 119 mg/dL (60-115); Magnesium 1.9 mg/dL (1.6-2.6); Phosphorus 3.5 mg/dL (2.7-4.5); Potassium 4.1 mmol/L (3.3-5.1); Sodium 141 mmol/L (135-145)
[2023-04-19] MEDS: Albumin Human 25 % 100 ML IV (05:39)
[2023-04-19] MEDS: Calcium Gluconate/NaCl,Iso-Osm 1 GM/50 ML PLAST..BAG IV (06:09)
[2023-04-19] MEDS: 0.9 % Sodium Chloride Flush 3 ML SYRINGE IVFLUSH ×2 (07:45→16:40)
[2023-04-19] MEDS: Ezetimibe 10 MG TABLET PO (07:46)
[2023-04-19] MEDS: Levothyroxine Sodium 175 MCG TABLET PO (07:46)
[2023-04-19] MEDS: Pregabalin 150 MG CAPSULE PO (07:46)
[2023-04-19] MEDS: Atorvastatin Calcium 80 MG TABLET PO (07:46)
[2023-04-19] MEDS: Clopidogrel Bisulfate 75 MG TABLET PO (07:46)
[2023-04-19] MEDS: Losartan Potassium 25 MG TABLET PO (07:46)
--- NOTE | 2023-04-19 09:16 | PM.CCPN ---
Subjective Subjective Date of Service: 04/19/23 Interval History: 67-year-old lady with underlying history of hyperlipidemia, CVA, CAD, ?myasthenia gravis, hypothyroidism, hypertension, peripheral artery disease postoperative day 1 after an elective right fem-pop bypass being monitored in the intensive care unit in the immediate postop period. No events overnight. Critical Care Time (minutes): 0 Physical Exam Vital Signs: Vital Signs: Last Vital Signs Temp 96.8 F 04/19/23 08:00 Pulse 82 04/19/23 09:00 Resp 14 04/19/23 09:00 BP 125/42 L 04/19/23 09:00 Pulse Ox 94 04/19/23 09:00 O2 Del Method Room Air 04/19/23 09:00 O2 Flow Rate 2 04/18/23 13:51 BMI result Body Mass Index 35.8 Const: General: no acute distress, alert and awake Eyes: Sclerae: sclerae normal EOM: EOMs intact bilaterally Neck: Neck: Yes no lymphadenopathy, Yes trachea midline and Yes supple Resp: Effort & Inspection: normal respiratory effort and no respiratory distress Auscultation: clear to auscultation bilaterally Cardio: Rate: regular rate Rhythm: regular rhythm Heart sounds: no gallops, no murmurs and no rubs GI: Palpation (GI): Soft to palpation and Other GI palpation findings present ( Nontender) Auscultation: normal bowel sounds Extrem: General: No clubbing, No cyanosis and Yes other (Surgical access sites without hematoma) Objective Data Labs 04/19/23 04:52 04/19/23 05:00 Labs: Laboratory Results - last 24 hr 04/19/23 04/19/23 04:52 05:00 WBC 9.6 RBC 2.89 L D Hgb 8.4 L D Hct 26.6 L D MCV 92.0 MCH 29.1 MCHC 31.6 RDW 13.9 Plt Count 155 L D MPV 10.1 Immature Gran % (Auto) 0.2 Neut % (Auto) 72.9 Lymph % (Auto) 17.2 L [place] % (Auto) 9.6 Eos % (Auto) 0.0 Baso % (Auto) 0.1 Lymph # (Auto) 1.7 [place] # (Auto) 0.9 Eos # (Auto) 0.0 Baso # (Auto) 0.0 Abs Immat Gran (auto) 0.02 Absolute Neuts (auto) 7.0 Absolute Nucleated RBC 0.000 Nucleated RBC % (auto) 0.0 Sodium 141 Potassium 4.1 Chloride 108 Carbon Dioxide 25 Anion Gap 12 BUN 15 Creatinine 0.56 Estim Creat Clear Calc 112.5 Estimated GFR > 60 Random Glucose 119 H Calcium 8.0 L D Phosphorus 3.5 Magnesium 1.9 Albumin 3.3 L Progress Note: A&P Assessment and plan (1) PAD (peripheral artery disease): Status: Acute (2) Hyperlipidemia: Status: Acute (3) Status post femoral-popliteal bypass surgery: Status: Acute (4) Obesity: Status: Acute Plan Assessment: 67-year-old lady with multiple medical issues now postoperative day 0 after an elective right fem-pop bypass Plan: Neuro: No acute issues. Cardiac: Postoperative day 1 after an elective right fem-pop bypass. Vascular surgery service care appreciated. Continue routine care. Underlying coronary artery disease with prior stents and hypertension. Pulmonary: No acute issues. Renal: No acute issues. Endo: No acute issues. GI: No acute issues. ID: No acute issues Heme/Onc: Hemoglobin drop likely related to reequilibration and dilution after surgery. Follow-up hemoglobin is pending. Psych: No acute issues. Miscellaneous: No acute issues. Prophylaxis: Per vascular surgery Diet: Regular Quality Stroke Does the patient have a stroke diagnosis?: No VTE Prior VTE?: No VTE Risk Level:: Medical - moderate - high VTE Device Contraindication: N/A - Device Ordered VTE Drug Contraindication: N/A - Med Ordered
--- NOTE | 2023-04-19 10:08 | P.EN_ITS ---
Event Note Date of Service: 04/19/23 Event Note: Transfer from ICU. Discussed with brusher machine. History of PVD, status post fem-pop bypass to the right lower extremity. Time Spent With Patient Time: Total time managing care of this patient today ____ minutes.
[2023-04-19 10:21] LABS: MANUAL DIFF FLAG NO
[2023-04-19 10:22] LABS: Basophils Percent Auto 0.1 % (0-2); Eosinophils Percent Auto 0.1 % (0-4); Hematocrit 26.3 % (37.0-47.0); Hemoglobin 8.3 g/dl (12.0-16.0); Imm Gran Abs Auto 0.01 X10*3/uL (0.00-0.03); Imm Gran Pct Auto 0.1 % (0.0-0.4); Lymphocytes Absolute Auto 1.9 X10*3/uL (1.2-4.9); Mean Corpuscular HGB Conc 31.6 g/dl (31.0-35.0); Mean Corpuscular Hemoglobin 28.7 pg (27.0-33.0); Mean Platelet Volume 10.3 fL (9.4-12.3); Monocytes Absolute Auto 0.9 X10*3/uL (0.1-1.2); Monocytes Percent Auto 9.8 % (2-11); Neutrophils Absolute Auto 5.9 x10*3/uL (2.0-8.3); Neutrophils Percent Auto 67.9 % (45-73); Platelet Count 154 X10*3/uL (160-400); Red Blood Count 2.89 X10*6/uL (4.20-5.50); Red Cell Distribution Width 14.1 % (11.0-16.0); White Blood Count 8.6 X10*3/uL (4.8-10.8)
--- NOTE | 2023-04-19 10:46 | HO.SKINPHOTO ---
Location: left ankle Location: right heel Location: right toes
--- NOTE | 2023-04-19 11:58 | HO.VASCPN ---
Subjective Subjective Date of Service: 04/19/23 Patient reports: no new complaints Interval history: Complex 67-year-old female presents for follow-up status post fem-pop bypass. Appears to be doing relatively well. Pain reasonably well controlled. Reports no significant change in terms of her heel pain but overall foot feels warm to her. She now presents for postoperative follow-up. Physical Exam Vital Signs: Vital Signs: Last Vital Signs Temp 96.8 F 04/19/23 08:00 Pulse 77 04/19/23 11:00 Resp 12 04/19/23 11:00 BP 121/37 L 04/19/23 11:00 Pulse Ox 95 04/19/23 11:00 O2 Del Method Room Air 04/19/23 11:00 O2 Flow Rate 2 04/18/23 13:51 BMI result Body Mass Index 35.8 Const: General: cooperative, healthy appearing and no acute distress Orientation/consciousness: oriented to person, oriented to place and oriented to time HEENT: Head: Yes normal to inspection Neck: Carotids: no bruits Chest: Chest palpation & inspection: normal inspection of the chest Resp: Effort & Inspection: normal respiratory effort and able to speak in complete sentences Auscultation: clear to auscultation bilaterally Cardio: Other: Triphasic signal over vein graft in mid thigh Rate: regular rate Heart sounds: S1 normal heart sound present and S2 normal heart sound present GI: Inspection: Yes normal to inspection Skin: General skin exam: no rashes or lesions noted Wounds: no wounds Neuro: General: oriented to person, oriented to place, oriented to time and CN's II-XI intact bilaterally Extrem: General: Yes normal to inspection, Yes full ROM and Yes no clubbing, cyanosis or edema Psych: Appearance: grossly normal and well kempt Speech and movement: Normal speech and movement present Affect: normal affect Progress Note: A&P Assessment and plan (1) PAD (peripheral artery disease): Status: Acute Assessment and Plan: In short patient appears to be doing well postop day 1 from fem distal bypass with vein as conduit. Will discontinue A-line and Horne. Regular diet. Stable for transfer to floor. If stable will start physical therapy tomorrow. We will continue to monitor her H&H. Thank you for allowing us to assist in her care. Time Spent With Patient Time: Total time managing care of this patient today ____ minutes. Procedures Date of Service Date of Service: 04/19/23 Quality Stroke Does the patient have a stroke diagnosis?: No VTE Prior VTE?: No VTE Risk Level:: Medical - moderate - high VTE Device Contraindication: N/A - Device Ordered VTE Drug Contraindication: N/A - Med Ordered
[2023-04-19] MEDS: Heparin Sodium,Porcine 5,000 UNIT/ML VIAL 5000 UNIT SUBCUT ×2 (12:48→21:17)
--- NOTE | 2023-04-19 12:57 | HO.WOUND ---
Wound Consult: Initial 67yr old?F [place] [facility] [place]/p elective vascular procedure with Dr. Abraham - See progress notes and H&P for detailed history.? Wound consult placed for chronic bilateral lower leg wounds.? Patient agreeable to assessment and photo documentation.? Pt reports she treats at the out patient wound clinic with Dr. Montgomery and follows outpatient with Dr. Abraham. At time of d/c recommend patient to continue out patient follow up with Outpt Wound Clinic / Dr. Montgomery and Dr. Abraham for follow up. Chart review reveals patient last visit prior to admission was 04/13/23 and Alpigraf was applied to the left leg. Assessment today reveals adaptic remains in place with steristrips. Secondary dressing changed with additional layer of Adaptic applied covered by ABD pad and gauze wrap to remain in place until 04/21/23 follow up. Pt has an appointment at the wound clinic on 04/21/23 patient likely to remain inpatient. Dr. Montgomery notified patient inpatient will follow up on for topical treatment recommendations for the left lower leg. Left Leg Etiology: ??Artierial Wound - follows with out pt wound clinic for treatment Wound Bed: did not assess - Adaptic remains in place secured with steri strips remains in place Drainage / Odor: drainage - serosang mild odor noted on secondary dressing Zenobia wound: ? No Induration, Fluctuance or Warmth noted Pain: denies at this time Goals of Treatment: ? Secondary dressing changed to remain in place until follow up. Right Dorsal foot and heel Etiology: ??Artierial Wound - follows with out pt wound clinic for treatment - s/p vascular procedure this admission with Dr. bAraham Wound Bed: various sizing of wounds and various stages - all wound beds are dry at this time Drainage / Odor: no drainage no odor noted at this time Zenobia wound: ?cool foot and toes. pink/red pigmentation noted - DP pulse not observed at time of my consult -direct care nurse to notify Dr. Abraham, + PT pulse with doppler - overall dry tissue - No Induration, Fluctuance or Warmth noted Pain: pt reports tenderness and pain Goals of Treatment: ? per outpt wound clinic orders - 2nd toe, dorsal wound and heel moist wound healing with Collagen wound gel remaining wounds paint with Betadine to keep dry and stable Recommendations: 1. Turn and Reposition every 2 hours and as needed for patient comfort.? Use pillows or wedges to support off loading positions. 2. Off Load all bony prominences with use of pillows and heel boots if needed.? Apply Preventative foams where needed. ? 3. Monitor for incontinence and moisture control, use barrier creams when needed for prevention and treatment. 4. Provide adequate and supplemental nutrition.? 5. Order or Continue low air loss mattress. 6. When applicable maintain blood glucose levels per Providers order. 7. Left Leg - Do not removed dressing - may reinforce secondary dressing if needed. Dr. Montgomery to followup . 8. Right Foot and Heel - 2nd toe, dorsal wound and heel Cleanse with Ns moist gauze, dry. Apply Collagen wound gel cover with gauze, remaining wounds paint with Betadine to keep dry and stable, cover with gauze wrap. Change Daily. Recommend follow up out patient Wound Clinic at [address] [place] [id number] and to call for an appointment at time of discharge. [phone]. - Keep follow up appointment with Dr. Abraham at time of discharge. Re-consult wound care Nurse for wound deterioration or wound changes.
--- NOTE | 2023-04-19 13:34 | MHC.CM.PN ---
Met with pt to discuss d/c planning: pt resides alone and is active w/[facility] for RN and PT services. She uses a rollator walker and friends assist w/transportation. Pt has cell and can call her friend for a ride to home. Discussed PT eval for possible acute rehab needs: pt receptive to referrals and will await PT eval - has been to [facility] in the past. Re-referred to [facility]. IMM and HCP in chart. CM to follow.
--- NOTE | 2023-04-19 14:35 | HO.POSTANES ---
Post Anesthesia Evaluation Post Anesthesia Evaluation Date of Service: 04/19/23 Vital Signs: Vital Signs Temp Pulse Pulse Resp BP BP Pulse Ox 04/19/23 12:00 97.2 F 87 13 97 04/19/23 11:00 77 12 121/37 L 95 04/19/23 10:00 85 14 121/37 L 96 04/19/23 09:00 82 14 125/42 L 94 04/19/23 08:00 74 127/52 L 04/19/23 08:00 96.8 F 79 14 140/48 H 96 04/19/23 07:00 79 14 112/47 L 94 04/19/23 06:00 75 14 94/38 L 90 L 04/19/23 05:49 92 04/19/23 05:00 77 26 H 107/41 L 92 04/19/23 04:00 98.3 F 78 12 117/45 L 97 04/19/23 03:30 78 110/42 L 04/19/23 03:00 80 15 112/43 L 91 L O2 Del Method 04/19/23 12:00 Room Air 04/19/23 11:00 Room Air 04/19/23 10:00 Room Air 04/19/23 09:00 Room Air 04/19/23 08:00 04/19/23 08:00 Room Air 04/19/23 07:00 Room Air 04/19/23 06:00 Room Air 04/19/23 05:49 Room Air 04/19/23 05:00 Room Air 04/19/23 04:00 Room Air 04/19/23 03:30 04/19/23 03:00 Room Air Anesthesia: General Mental Status: Awake Pain Control: Satisfactory Nausea/Vomiting: None Hydration: Adequate Anesthesia-Related Issues: No Anes. Related Issues
--- NOTE | 2023-04-19 20:13 | ECG_ITS ---
Test Reason : sob Blood Pressure : / mmHG Vent. Rate : 113 BPM Atrial Rate : 113 BPM P-R Int : 160 ms QRS Dur : 084 ms QT Int : 324 ms P-R-T Axes : 056 046 031 degrees QTc Int : 444 ms Sinus tachycardia Possible Left atrial enlargement Nonspecific ST abnormality Abnormal ECG When compared with ECG of 29-JUL-2016 16:02, Previous ECG has undetermined rhythm, needs review ST now depressed in Lateral leads Referred By: Mely Altman Electronically Signed By:Manuel Wing
[2023-04-19] MEDS: Furosemide 100 MG/10 ML VIAL 60 MG IVPUSH (20:15)
--- NOTE | 2023-04-19 20:19 | PM.EVENT ---
Documented by User: PRAMOD Augustine 04/19/23 23:14 Event Note Date of Service: 04/19/23 Event Note: TOOTH INSPECTOR called due to pt with sudden onset sob. She is a vascular surgery patient s/p fem-pop bypass 04/18, transferred to [facility] from ICU earlier today. Denies any chest pain, palpitations, lightheadedness, wheezing she is hypertensive to 192/81 and tachycardic to 113. She was hypoxic to 84% on room air and placed on 7 L O2 via OxyMask maintaining oximetry 94% EKG ordered shows sinus tachycardia, rate 113. Heart is noted to be in regular rhythm but tachycardic. There are diffuse crackles on lung auscultation, no wheezing. She does have 1+ bilateral lower extremity edema. Given DuoNeb without much improvement in symptoms. Given 60 mg IV Lasix. 1/2 inch nitroglycerin ointment also ordered. Chest x-ray reveals peribronchial thickening and bibasilar atelectasis but no acute intrathoracic disease. CBC, BMP, troponin, D-dimer, BNP ordered and pending. Plan to be adjusted as appropriate pending results Time Spent With Patient Time: Total time managing care of this patient today ____ minutes. Documented by User: Natasha Morris MD 04/20/23 03:30 Event Note Date of Service: 04/20/23
[2023-04-19] MEDS: Albuterol/Iprat 2.5/0.5MG 3 ML AMPUL.NEB INHALE (20:22)
[2023-04-19] MEDS: Morphine Sulfate 2 MG/ML CARTRIDGE IVPUSH (20:30)
[2023-04-19] MEDS: Nitroglycerin 2 % Oint 1 GM Packet 0.5 INCH TRANSDERMA (20:31)
[2023-04-19 20:39] LABS: MANUAL DIFF FLAG NO
[2023-04-19 20:41] LABS: Basophils Percent Auto 0.3 % (0-2); Eosinophils Absolute Auto 0.1 X10*3/uL (0.0-0.4); Eosinophils Percent Auto 0.5 % (0-4); Hematocrit 31.3 % (37.0-47.0); Hemoglobin 9.9 g/dl (12.0-16.0); Imm Gran Abs Auto 0.04 X10*3/uL (0.00-0.03); Imm Gran Pct Auto 0.4 % (0.0-0.4); Lymphocytes Percent Auto 18.4 % (20-40); Mean Corpuscular HGB Conc 31.6 g/dl (31.0-35.0); Mean Corpuscular Hemoglobin 28.5 pg (27.0-33.0); Mean Corpuscular Volume 90.2 fL (80.0-98.0); Monocytes Percent Auto 9.1 % (2-11); Neutrophils Absolute Auto 7.8 x10*3/uL (2.0-8.3); Neutrophils Percent Auto 71.3 % (45-73); Platelet Count 184 X10*3/uL (160-400); Red Blood Count 3.47 X10*6/uL (4.20-5.50); Red Cell Distribution Width 14.2 % (11.0-16.0); White Blood Count 10.9 X10*3/uL (4.8-10.8)
[2023-04-19 20:44] LABS: VBG Base Excess 5.7 mmol/L; VBG HCO3 27 mmol/L (22-26); VBG pCO2 31 mmHg; VBG pH 7.55 (7.32-7.43); VBG pO2 108 mmHg
[2023-04-19 20:47] LABS: Venous Blood Gas Refer to POC result
[2023-04-19 20:49] LABS: D Dimer High Sensitivity 361 NG/ML
[2023-04-19 20:55] LABS: Anion Gap 12 (12-20); Blood Urea Nitrogen 15 mg/dL (9-16); Calcium 8.7 mg/dL (8.4-10.2); Carbon Dioxide 26 mmol/L (22-29); Chloride 106 mmol/L (96-108); Creatinine Clr Calc Pharmacy 116.6; Estimated Glomerular Filt Rate > 60; Glucose Random 155 mg/dL (60-115); Potassium 3.9 mmol/L (3.3-5.1); Sodium 140 mmol/L (135-145)
[2023-04-19 21:03] LABS: B Type Natriuretic Peptide 235 pg/mL (<100)
--- NOTE | 2023-04-19 21:17 | PC.RT ---
Rapid Response called, RT arrived to find pt on N/C 5L w/ SPO2 low 80's, immediately placed Oxymask on patient 7L to be increased to 9L with SPO2 above 95%, eventually decreased to 7L Oxymask, STAT Duoneb tx given per MD, Pt with bibasilar crackles greater on left side. Pt was alert and oriented with chief complaint of worsening/increased SOB. Pt currently stable on 7L Oxymask with continuous pulse oximetry. RN will call RT if further interventions are needed.
[2023-04-19] MEDS: Aspirin Enteric Coated 81 MG TABLET.DR PO (21:18)
[2023-04-19] MEDS: Pregabalin 200 MG CAPSULE PO (21:20)
--- NOTE | 2023-04-19 21:43 | PC.NURSE ---
pt rang nvooa and called for nurse right before 8pm. complaint of not being able to breathe. Immediately got a set of vitals, bP 200/89, HR 131, O2 sats 77% with wheezing in bilateral bases. Called a rapid response, Dr. Bryon Morris was in room immediately as well as the rest of the team. Please refer to Mely Altman's event note for medications and testing. Pt was stabilized, added continuous pulse ox, vitals taken again, returned to normal, see chart, and pt is calm and resting. Will ctm.
[2023-04-20] VITALS (10 sets, daily range): BP systolic 129–190; BP diastolic 59–79; PULSE 72–101; RESP 16–20; TEMP 36.1–37.4; O2SAT 94–99
[2023-04-20] MEDS: 0.9 % Sodium Chloride Flush 3 ML SYRINGE IVFLUSH ×3 (00:25→14:40)
[2023-04-20 00:49] LABS: Troponin-I High Sensitivity 465.5 ng/L (<3.5-17.0)
[2023-04-20] MEDS: oxyCODONE HCl Immed Release 5 MG TABLET PO ×3 (02:17→18:54)
--- NOTE | 2023-04-20 03:31 | P.EN_ITS ---
Event Note Date of Service: 04/20/23 Event Note: Marixa developed worsening shortness of breath requiring supplemental oxygen. Denies chest pain. She became quite tachycardic and hypertensive Cardiopulmonary auscultation show bilateral crackles more prominent at the bases. CXR stat show cardiomegaly and in my opinion vascular congestion. Blood workup stat was obtained and is remarkable for elevated troponin. Patient received treatment with Lasix 60 mg IV with adequate diuresis. She also received treatment with nitroglycerin ointment and morphine. I did re-evaluate patient again and told me she feels much better. Continues to deny chest pain. Case discussed with Dr. Wing, regulatory affairs strategy specialist on-call. Recommended to continue trending troponin for now. If patient develops chest pain or troponin continues to increase significantly, then to consider start therapy with heparin if Dr. Abraham accepts. For now, we will continue therapy with supplement oxygen (pt now on 3L/min via NC). Patient is already receiving treatment with Plavix and aspirin. An order for echocardiogram was placed. Time Spent With Patient Time: Total time managing care of this patient today ____ minutes.
[2023-04-20] MEDS: Heparin Sodium,Porcine 5,000 UNIT/ML VIAL 5000 UNIT SUBCUT ×3 (04:24→20:56)
--- NOTE | 2023-04-20 04:50 | PC.NURSE ---
Pt noted to be restless,having difficulty expressing what she wants.Denies SOB or chest pain.Remains SR on tele.Dr Abilio Morris notified and MD up to floor to assess patient.Pt speaking more clearly with MD, less restless.Denies SOB.Able to answer questions appropriately such as name,year and where she is.No new orders at this time.Will cont to monitor.
[2023-04-20 06:46] LABS: MANUAL DIFF FLAG NO
[2023-04-20 06:51] LABS: Basophils Percent Auto 0.3 % (0-2); Eosinophils Absolute Auto 0.1 X10*3/uL (0.0-0.4); Eosinophils Percent Auto 0.5 % (0-4); Hematocrit 29.2 % (37.0-47.0); Hemoglobin 9.2 g/dl (12.0-16.0); Imm Gran Abs Auto 0.06 X10*3/uL (0.00-0.03); Imm Gran Pct Auto 0.6 % (0.0-0.4); Lymphocytes Percent Auto 17.9 % (20-40); Mean Corpuscular HGB Conc 31.5 g/dl (31.0-35.0); Mean Corpuscular Hemoglobin 28.8 pg (27.0-33.0); Mean Corpuscular Volume 91.5 fL (80.0-98.0); Mean Platelet Volume 10.8 fL (9.4-12.3); Monocytes Absolute Auto 1.1 X10*3/uL (0.1-1.2); Monocytes Percent Auto 10.2 % (2-11); Neutrophils Absolute Auto 7.7 x10*3/uL (2.0-8.3); Neutrophils Percent Auto 70.5 % (45-73); Platelet Count 197 X10*3/uL (160-400); Red Blood Count 3.19 X10*6/uL (4.20-5.50); Red Cell Distribution Width 14.2 % (11.0-16.0); White Blood Count 10.9 X10*3/uL (4.8-10.8)
--- NOTE | 2023-04-20 07:00 | CA_ITS ---
Transthoracic Echocardiogram Patient (Last, First, Middle): Marixa Chan E Gender: Female Date of : 1955 Age: 67 Procedure Date: 04/20/2023 Procedure Type: Transthoracic [place] [facility] [place]: 167.64 cm Weight: 100.25 kg BSA: 2.09 m2 Heart Rate: bpm BP: 190 / 78 mmHg [employer] Information Clerk: Referring MD: Natasha Morris MD Symptoms: CHF, Fluid overload Study Quality: Adequate ECG Rhythm: Sinus Conclusions: - Normal left ventricular cavity size. There is moderately increased left ventricular wall thickness. The left ventricular systolic function is hyperdynamic. The visually estimated ejection fraction is >70%. - E/E prime ratio is between 8 and 15 consistent with indeterminate filling pressures. - Normal right ventricular cavity size and systolic function. - The left atrium is moderately dilated. - There is mild aortic valve stenosis. Findings Left Ventricle Normal left ventricular cavity size. There is moderately increased left ventricular wall thickness. The left ventricular systolic function is hyperdynamic. The visually estimated ejection fraction is >70%. There is no evidence of regional wall motion abnormalities. Abnormal diastolic function is noted. Spectral Doppler is indicative of an impaired relaxation filling pattern. E/E prime ratio is between 8 and 15 consistent with indeterminate filling pressures. Right Ventricle Normal right ventricular cavity size and systolic function. Atria The left atrium is moderately dilated. Aortic Valve The aortic valve structure and function is likely normal. There is mild calcification of the aortic valve. There is mild aortic valve stenosis. There is no aortic valve regurgitation. Mitral Valve The mitral valve appears normal. There is no mitral valve regurgitation. There is no mitral valve stenosis. Pulmonic Valve The pulmonic valve was not well visualized. Tricuspid Valve Normal tricuspid valve structure. There is no tricuspid valve regurgitation. Normal right atrial pressure. There is no evidence of pulmonary hypertension. Great Vessels All visible segments of the aorta are normal in size. Venous The inferior vena cava is normal in size and collapses greater than 50% with inspiration. Pericardium/Pleural There is no evidence of pericardial effusion. Prior Study Comparison Changes noted compared to prior study dated: 06/02/2016. Mild , diastolic dysfunction. hyperdynamic LV function. Measurements 2D Linear Measurements IVSd: 1.24 0.6-0.9/0.6-1.0 cm LVIDd: 4.45 3.9-5.3/4.2-5.9 cm LVIDd Index: 2.13 2.4-3.2/2.2-3.1 cm/m2 LVIDs: 2.64 2.0-3.6 cm LVPWd: 1.25 0.7-1.1 cm Ao Root: 2.80 2.1-3.5 cm LA Diam: 4.30 2.7-3.8/3.0-4.0 cm LAIDs Index: 2.06 1.5-2.3 cm/m2 LV Mass: 255.98 67-162/88-224 g LV Mass Index: 122.48 43-95/49-115 g/m2 LVOT Diam: 2.10 3.0+(-)1.3 cm 2D Systolic Function EF 4C: 65.70 >55% EF 2C: 58.60 >55% EF BiP: 63.00 >55% Mitral Valve MV Pk E: 0.81 MV PK A: 1.32 MV Decel Time: 160.00 E/A: 0.60 E'Lateral: 6.64 E'Medial: 6.09 E/E' Med: 13.40 E/E' Lat: 12.30 PHT: 47.00 MVA PHT: 4.68 Decel [place]: 5.09 Aortic Valve AoV Pk Logan: 2.59 AoV Mn Logan: 1.65 AoV VTI: 0.57 AoV Pk Grad: 27.00 Aov Mn Grad: 14.00 ARAM Cont.VTI: 1.31 LVOT LVOT Pk Logan: 1.03 LVOT Mn Logan: 0.69 LVOT VTI: 0.22 LVOT Pk Grad: 4.00 LVOT Mn Grad: 2.00 LVOT Diam: 2.10 LVOT Area: 3.46 Diastolic Function MV Pk E: 0.81 MV Pk A: 1.32 E/A: 0.60 E'Medial: 6.09 E/E' Med: 13.40 E' Laterial: 6.64 E/E' Lat: 12.30 Right Ventricle TAPSE (mm): 29.00 TVS' Logan: 20.00 Tricuspid Valve TR Pk Logan: 2.58 TR Pk Grad: 27.00 RA Press: 3.00 RVSP: 30.00 Great Vessels Aorta Ao Root-2D: 2.80 2.0-3.7 cm Ao Asc: 2.80 2.1-3.4 cm Updated in Other Vendor System with Status of Final Manuel Wing MD electronically signed on 04/20/2023 11:58:30 AM with status of Final
[2023-04-20 07:35] LABS: Albumin Level 3.7 g/dL (3.5-5.0); Anion Gap 13 (12-20); Blood Urea Nitrogen 10 mg/dL (9-16); Calcium 8.7 mg/dL (8.4-10.2); Carbon Dioxide 25 mmol/L (22-29); Chloride 104 mmol/L (96-108); Estimated Glomerular Filt Rate > 60; Glucose Random 139 mg/dL (60-115); Magnesium 1.8 mg/dL (1.6-2.6); Phosphorus 2.4 mg/dL (2.7-4.5); Potassium 3.5 mmol/L (3.3-5.1); Sodium 138 mmol/L (135-145)
[2023-04-20 08:04] LABS: Troponin-I High Sensitivity 589.4 ng/L (<3.5-17.0)
[2023-04-20] MEDS: Ezetimibe 10 MG TABLET PO (08:31)
[2023-04-20] MEDS: Clopidogrel Bisulfate 75 MG TABLET PO (08:31)
[2023-04-20] MEDS: Nitroglycerin 2 % Oint 1 GM Packet 1 INCH TRANSDERMA (08:31)
[2023-04-20] MEDS: Pregabalin 150 MG CAPSULE PO (08:31)
[2023-04-20] MEDS: Levothyroxine Sodium 175 MCG TABLET PO (08:31)
[2023-04-20] MEDS: Acetaminophen 325 MG TABLET 650 MG PO (08:31)
[2023-04-20] MEDS: Atorvastatin Calcium 80 MG TABLET PO (08:31)
[2023-04-20] MEDS: Losartan Potassium 25 MG TABLET PO (08:32)
[2023-04-20] MEDS: HYDROmorphone HCl 0.5 MG/0.5 ML SYRINGE IVPUSH ×3 (08:35→18:54)
--- NOTE | 2023-04-20 09:04 | HO.VASCPN ---
Subjective Subjective Date of Service: 04/20/23 Patient reports: no new complaints and feels better Interval history: Patient seen and examined. She was transferred up to the floor yesterday. Events of yesterday evening were reviewed. There was actually a rapid response called on her secondary to shortness of breath. She reports that she was having difficulty bleeding and felt anxious. She received some oxygen in addition to Lasix and notes that she was feeling better. This morning she reports that she is extremely comfortable. Physical Exam Vital Signs: Vital Signs: Last Vital Signs Temp 98.6 F 04/20/23 07:25 Pulse 88 04/20/23 07:25 Resp 18 04/20/23 07:25 BP 190/78 H 04/20/23 07:25 Pulse Ox 96 04/20/23 07:25 O2 Del Method Nasal Cannula 04/20/23 07:25 O2 Flow Rate 3 04/20/23 07:25 BMI result Body Mass Index 35.8 Const: General: cooperative, healthy appearing and no acute distress Orientation/consciousness: oriented to person, oriented to place and oriented to time HEENT: Head: Yes normal to inspection Neck: Carotids: no bruits Chest: Chest palpation & inspection: normal inspection of the chest Resp: Effort & Inspection: normal respiratory effort and able to speak in complete sentences Auscultation: clear to auscultation bilaterally Cardio: Other: Right leg posterior tibial signal Rate: regular rate Heart sounds: S1 normal heart sound present and S2 normal heart sound present GI: Inspection: Yes normal to inspection Skin: General skin exam: no rashes or lesions noted Wounds: no wounds Neuro: General: oriented to person, oriented to place, oriented to time and CN's II-XI intact bilaterally Extrem: General: Yes normal to inspection, Yes full ROM and Yes no clubbing, cyanosis or edema Psych: Appearance: grossly normal and well kempt Speech and movement: Normal speech and movement present Affect: normal affect Progress Note: A&P Assessment and plan (1) PAD (peripheral artery disease): Status: Acute Plan Doing well postop day 2. Will start physical therapy today. In addition she can be out of bed to chair. Will start with bedside commode in addition. Encourage incentive spirometry. If continues would anticipate discharge within the next day or 2. Time Spent With Patient Time: Total time managing care of this patient today ____ minutes. Procedures Date of Service Date of Service: 04/20/23 Quality Stroke Does the patient have a stroke diagnosis?: No VTE Prior VTE?: No VTE Risk Level:: Medical - moderate - high VTE Device Contraindication: N/A - Device Ordered VTE Drug Contraindication: N/A - Med Ordered
--- NOTE | 2023-04-20 10:30 | MHC.CM.PN ---
Pt is not yet ready for DC, notes that anticipate DC on a day or two. DC plan TBD, acute rehab following, and pt was active with [facility] prior to hosp stay. CM to follow and assist with DC plan.
[2023-04-20 11:16] LABS: Cholesterol 94 mg/dL (<200); HDL Cholesterol 45 mg/dL (>40); LDL Cholesterol Calculated 33 mg/dL (<100); Triglycerides 81 mg/dL (<150)
[2023-04-20] MEDS: carisoprodoL 350 MG TABLET PO (12:06)
[2023-04-20] MEDS: Metoprolol Tartrate 25 MG TABLET PO (12:06)
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
--- NOTE | 2023-04-20 13:45 | MHC.CLN ---
RE: CONSULT RECOMMEND ADDING ENSURE MAX BID TO PROMOTE WOUND HEALING SUPP OFFERS 300KCALS, 60G PROTEIN WITH 100% ACCEPTANCE MONITOR PO INTAKE
[2023-04-20] MEDS: Furosemide 40 MG/4 ML VIAL IVPUSH (14:40)
--- NOTE | 2023-04-20 14:43 | P.PNIM_ITS ---
Subjective Subjective Date of Service: 04/20/23 Interval History: Being followed for sudden onset of shortness of breath , elevated blood pressure, and noted to have elevated troponins. This morning patient denies shortness of breath, no chest pain, complaining of lower extremity pain status post fem-pop bypass. Denies nausea vomiting, no abdominal pain, no diarrhea, no fevers, no chills. Review of Systems All other system reviewed and negative. Physical Exam 2 Vital Signs: Vital Signs: Last Vital Signs Temp 98.2 F 04/20/23 11:13 Pulse 79 04/20/23 11:13 Resp 20 04/20/23 11:13 BP 129/60 04/20/23 11:13 Pulse Ox 97 04/20/23 11:13 O2 Del Method Nasal Cannula 04/20/23 11:13 O2 Flow Rate 2 04/20/23 11:13 Oxygen Flow Rate 2 04/20/23 07:00 BMI result Body Mass Index 35.8 Const: Other: General awake alert x3,in no acute distress. Neck + JVD. CVS regular rate rhythm, systolic murmur Respiratory lungs clear to auscultation, no respiratory distress, no wheeze, no rhonchi. Gastrointestinal abdomen soft, nontender, bowel sounds audible Extremities left foot dressing in place, mild peripheral edema Neuro nonfocal Skin no rash Psych appropriate affect/anxious Objective Data Active Medications Acetaminophen (Acetaminophen 325 Mg Tablet) 650 mg PO Q6H PRN PRN Reason: Pain, Mild (Pain Scale 1-3) Last Admin: 04/20/23 08:31 Dose: 650 mg Documented By: AARON Aspirin (Aspirin Enteric Coated 81 Mg Tablet.) 81 mg PO BEDTIME [facility] Last Admin: 04/19/23 21:18 Dose: 81 mg Documented By: AGA Atorvastatin Calcium (Atorvastatin Calcium 80 Mg Tablet) 80 mg PO DAILY [facility] Last Admin: 04/20/23 08:31 Dose: 80 mg Documented By: AARON Clopidogrel Bisulfate (Clopidogrel Bisulfate 75 Mg Tablet) 75 mg PO DAILY [facility] Last Admin: 04/20/23 08:31 Dose: 75 mg Documented By: AARON Ezetimibe (Ezetimibe 10 Mg Tablet) 10 mg PO DAILY [facility] Last Admin: 04/20/23 08:31 Dose: 10 mg Documented By: AARON Furosemide (Furosemide 40 Mg/4 Ml Vial) 40 mg IVPUSH DAILY [facility]; Protocol Last Admin: 04/20/23 14:40 Dose: 40 mg Documented By: AARON Heparin Sodium (Porcine) (Heparin Sodium,Porcine 5,000 Unit/Ml Vial) 5,000 unit SUBCUT Q8H [facility] Last Admin: 04/20/23 12:06 Dose: 5,000 unit Documented By: AARON Hydromorphone HCl (Hydromorphone Hcl 0.5 Mg/0.5 Ml Syringe) 0.5 mg IVPUSH Q4H PRN; Protocol PRN Reason: Pain, Severe (Pain Scale 7-10) Last Admin: 04/20/23 12:06 Dose: 0.5 mg Documented By: AARON Levothyroxine Sodium (Levothyroxine Sodium 175 Mcg Tablet) 175 mcg PO DAILY [facility] Last Admin: 04/20/23 08:31 Dose: 175 mcg Documented By: AARON Losartan Potassium (Losartan Potassium 25 Mg Tablet) 25 mg PO DAILY [facility]; Protocol Last Admin: 04/20/23 08:32 Dose: 25 mg Documented By: AARON Metoprolol Tartrate (Metoprolol Tartrate 25 Mg Tablet) 25 mg PO BID [facility]; Protocol Last Admin: 04/20/23 12:06 Dose: 25 mg Documented By: AARON Oxycodone HCl (Oxycodone Hcl Immed Release 5 Mg Tablet) 5 mg PO Q4H PRN PRN Reason: Pain, Moderate(Pain Scale 4-6) Last Admin: 04/20/23 08:31 Dose: 5 mg Documented By: AARON Pregabalin (Pregabalin 150 Mg Capsule) 150 mg PO DAILY [facility] Last Admin: 04/20/23 08:31 Dose: 150 mg Documented By: AARON Pregabalin (Pregabalin 200 Mg Capsule) 200 mg PO DAILY@1999 [facility] Last Admin: 04/19/23 21:20 Dose: 200 mg Documented By: AGA Sodium Chloride (0.9 % Sodium Chloride Flush 3 Ml Syringe) 3 ml IVFLUSH QSHIFT [facility] Last Admin: 04/20/23 14:40 Dose: 3 ml Documented By: AARON Labs 04/20/23 06:09 04/20/23 06:09 Labs: Laboratory Results - last 24 hr 04/19/23 04/19/23 04/20/23 20:33 20:39 06:09 MCV 90.2 91.5 MCH 28.5 28.8 MCHC 31.6 31.5 RDW 14.2 14.2 Plt Count 184 197 MPV 10.0 10.8 Immature Gran % (Auto) 0.4 0.6 H Neut % (Auto) 71.3 70.5 Lymph % (Auto) 18.4 L 17.9 L Mcdonough % (Auto) 9.1 10.2 Eos % (Auto) 0.5 0.5 Baso % (Auto) 0.3 0.3 Lymph # (Auto) 2.0 2.0 Mcdonough # (Auto) 1.0 1.1 Eos # (Auto) 0.1 0.1 Baso # (Auto) 0.0 0.0 Abs Immat Gran (auto) 0.04 H 0.06 H Absolute Neuts (auto) 7.8 7.7 Absolute Nucleated RBC 0.000 0.000 Nucleated RBC % (auto) 0.0 0.0 D-Dimer High Sensitivty 361 VBG pH 7.55 H VBG pCO2 31 VBG pO2 108 VBG HCO3 27 H VBG O2 Saturation 99.0 VBG Base Excess 5.7 Anion Gap 12 13 Estim Creat Clear Calc 116.6 121.0 Estimated GFR > 60 > 60 Random Glucose 155 H 139 H Calcium 8.7 D 8.7 Phosphorus 2.4 L Magnesium 1.8 B-Natriuretic Peptide 235 H Albumin 3.7 Triglycerides 81 Cholesterol 94 LDL Cholesterol, Calc 33 HDL Cholesterol 45 Assessment and Plan (1) Essential hypertension: Status: Acute (2) Acute congestive heart failure: Status: Acute (3) Status post femoral-popliteal bypass surgery: Status: Acute Plan 67 year female underwent vascular surgery and postoperatively developed sudden onset of shortness of breath and found to be in acute CHF treated with IV Lasix with good response. Acute onset of CHF with preserved EF Shortness of breath improved, status post IV Lasix 60 mg, Will continue Lasix IV 40 mg daily due to persistent hypervolemia Echo showed EF greater than 70%, no wall motion abnormality, abnormal diastolic function Follow electrolytes renal function and BNP/follow I and Os Elevated troponin likely due to acute CHF and hypoxia No chest discomfort. Seen by cardiology, no evidence of acute coronary syndrome, continue management of CHF, echo showed no wall motion abnormality. Follow lipid profile Hypertensive urgency likely due to CHF and pain Blood pressure improved , treated with nitro paste, will increase dose of losartan and monitor BP Peripheral arterial disease status post surgery postoperative day 2 Being followed by vascular surgery Continue aspirin, Plavix and Lipitor Obesity recommend low-calorie diet DVT prophylaxis heparin with heparin subQ Code status Disposition as per vascular surgery Quality Stroke Does the patient have a stroke diagnosis?: No VTE Prior VTE?: No VTE Risk Level:: Medical - moderate - high VTE Device Contraindication: N/A - Device Ordered VTE Drug Contraindication: N/A - Med Ordered
--- NOTE | 2023-04-20 15:45 | PM.EVENT ---
Event Note Date of Service: 04/20/23 Event Note: patient slow to response but has no word-finding difficulty, no confusion As per patient she noted to have above symptoms post surgery Healthcare proxy concerned about stroke Neuro examination mild loss of right nasolabial fold Normal upper and lower extremity strength and tone Since patient has prior history of stroke Will to CT scan stroke protocol. Time Spent With Patient Time: Total time managing care of this patient today ____ minutes.
[2023-04-20] MEDS: Potassium Chloride ER 20 MEQ TAB.ER.PRT PO (16:28)
[2023-04-20] MEDS: Sodium,Potassium Phosphates POWD.PACK 1 PACKET PO (20:55)
[2023-04-20] MEDS: Pregabalin 200 MG CAPSULE PO (20:56)
[2023-04-20] MEDS: Aspirin Enteric Coated 81 MG TABLET.DR PO (20:56)
[2023-04-21] MEDS: oxyCODONE HCl Immed Release 5 MG TABLET PO ×4 (00:32→23:50)
[2023-04-21] MEDS: 0.9 % Sodium Chloride Flush 3 ML SYRINGE IVFLUSH ×4 (00:33→23:52)
[2023-04-21 03:06] VITALS: BP 157/68; PULSE 83; RESP 18; TEMP 37.2; O2SAT 90
[2023-04-21] MEDS: Heparin Sodium,Porcine 5,000 UNIT/ML VIAL 5000 UNIT SUBCUT ×3 (05:22→19:49)
[2023-04-21 07:02] LABS: Hematocrit 28.3 % (37.0-47.0); Mean Corpuscular HGB Conc 31.8 g/dl (31.0-35.0); Mean Corpuscular Hemoglobin 28.8 pg (27.0-33.0); Mean Corpuscular Volume 90.4 fL (80.0-98.0); Mean Platelet Volume 10.4 fL (9.4-12.3); Platelet Count 186 X10*3/uL (160-400); Red Blood Count 3.13 X10*6/uL (4.20-5.50); White Blood Count 9.5 X10*3/uL (4.8-10.8)
[2023-04-21 07:08] LABS: Anion Gap 13 (12-20); Blood Urea Nitrogen 14 mg/dL (9-16); Calcium 8.6 mg/dL (8.4-10.2); Carbon Dioxide 25 mmol/L (22-29); Chloride 105 mmol/L (96-108); Creatinine Clr Calc Pharmacy 110.7; Estimated Glomerular Filt Rate > 60; Glucose Random 111 mg/dL (60-115); Potassium 3.8 mmol/L (3.3-5.1); Sodium 139 mmol/L (135-145)
[2023-04-21 07:36] VITALS: BP 170/75; PULSE 87; RESP 20; TEMP 37.4; O2SAT 95; O2SAT 97
[2023-04-21] MEDS: Acetaminophen 325 MG TABLET 650 MG PO ×2 (08:10→21:12)
[2023-04-21] MEDS: Ezetimibe 10 MG TABLET PO (08:10)
[2023-04-21] MEDS: Pregabalin 150 MG CAPSULE PO (08:10)
[2023-04-21] MEDS: Levothyroxine Sodium 175 MCG TABLET PO (08:10)
[2023-04-21] MEDS: Sodium,Potassium Phosphates POWD.PACK 1 PACKET PO ×2 (08:11→19:49)
[2023-04-21] MEDS: Atorvastatin Calcium 80 MG TABLET PO (08:11)
[2023-04-21] MEDS: Losartan Potassium 25 MG TABLET PO ×2 (08:11→12:19)
[2023-04-21] MEDS: Clopidogrel Bisulfate 75 MG TABLET PO (08:11)
[2023-04-21] MEDS: Furosemide 40 MG/4 ML VIAL IVPUSH (08:12)
[2023-04-21] MEDS: HYDROmorphone HCl 0.5 MG/0.5 ML SYRINGE IVPUSH ×3 (09:54→21:52)
[2023-04-21 10:42] VITALS: BP 170/75; PULSE 87; O2SAT 97
[2023-04-21] MEDS: Docusate Sodium 100 MG CAPSULE 200 MG PO (12:19)
[2023-04-21] MEDS: polyethylene glycoL 3350 17 GM POWD.PACK PO (12:20)
--- NOTE | 2023-04-21 12:51 | HO.VASCPN ---
Subjective Subjective Date of Service: 04/21/23 Patient reports: no new complaints and feels better Interval history: 67-year-old female status post right femoral to distal bypass with vein as conduit. Appears to be doing significantly better. She is quite emotional this morning as she [facility]. Reports she is doing fairly well. She is off of oxygen. She complains of heel pain. Appears to be doing relatively well otherwise. Now for routine postop follow-up. Physical Exam Vital Signs: Vital Signs: Last Vital Signs Temp 99.3 F 04/21/23 07:36 Pulse 87 04/21/23 10:42 Resp 20 04/21/23 07:36 BP 170/75 H 04/21/23 10:42 Pulse Ox 97 04/21/23 10:42 O2 Del Method Room Air 04/21/23 07:36 O2 Flow Rate 0.5 04/20/23 15:36 Oxygen Flow Rate 2 04/20/23 07:00 BMI result Body Mass Index 35.8 Const: General: cooperative, healthy appearing and comfortable Orientation/consciousness: oriented to person, oriented to place and oriented to time HEENT: Head: Yes normal to inspection Neck: Neck: Yes normal visual inspection Carotids: no bruits Chest: Chest palpation & inspection: normal inspection of the chest Resp: Effort & Inspection: normal respiratory effort and able to speak in complete sentences Auscultation: clear to auscultation bilaterally, no crackles, no rales, no rhonchi and no wheezes Cardio: Other: Right leg posterior tibial signal biphasic Rate: regular rate Rhythm: regular rhythm Heart sounds: S1 normal heart sound present and S2 normal heart sound present Bruits: no carotid bruits Peripheral pulses: Peripheral pulses 2+ throughout GI: Inspection: Yes normal to inspection Skin: Wounds: no wounds Hair: normal Neuro: General: oriented to person, oriented to place and oriented to time Cranial nerves: Yes CN's II-XII intact bilaterally and Yes Normal hearing present Cognition (Neuro): normal cognition Motor exam (neuro): 5/5 motor strength present throughout Extrem: Other: venous exam: No significant superficial varicosities or spider telangiectasias, minimal edema General: No clubbing, No cyanosis and No edema Psych: Appearance: grossly normal Mental Status: mental status grossly normal Speech and movement: Normal speech and movement present Progress Note: A&P Assessment and plan (1) PAD (peripheral artery disease): Status: Acute Assessment and Plan: In short patient is doing well status post fem-pop bypass. Appears to have recovered nicely from the rapid response the other day. She is breathing fine. I did encourage her to use incentive spirometry. She will need to ambulate more. She will most likely require rehab after she is stable. Hopefully we can plan to discharge her within the next day or 2. Thank you to the hospitalist for their assistance in her care Time Spent With Patient Time: Total time managing care of this patient today ____ minutes. Procedures Date of Service Date of Service: 04/21/23 Quality Stroke Does the patient have a stroke diagnosis?: No VTE Prior VTE?: No VTE Risk Level:: Medical - moderate - high VTE Device Contraindication: N/A - Device Ordered VTE Drug Contraindication: N/A - Med Ordered
--- NOTE | 2023-04-21 13:59 | HO.WOUND ---
Wound Consult: Follow up 67yr old?F admitted to [facility] on 04/18 s/p elective vascular procedure with Dr. Abraham - See progress notes and H&P for detailed history.? Wound consult placed for chronic bilateral lower leg wounds.?Todays follow up was in accompanied by Dr. Mongtomery. Updated orders below. Left dressing removed - odor noted -Wound bed cleansed and no appreciable odor noted after cleansing. Wound beds per Dr. Montgomery improved from last asssessment - Dressing going forward to be Hydrofiber AG every other day. See below for detailed assessment - no photo from todays assessment. Information provided from initial assessment Patient agreeable to assessment and photo documentation.? Pt reports she treats at the out patient wound clinic with Dr. Montgomery and follows outpatient with Dr. Abraham. At time of d/c recommend patient to continue out patient follow up with Outpt Wound Clinic / Dr. Montgomery and Dr. Abraham for follow up. Chart review reveals patient last visit prior to admission was 04/13/23 and Alpigraf was applied to the left leg. Assessment today reveals adaptic remains in place with steristrips. Secondary dressing changed with additional layer of Adaptic applied covered by ABD pad and gauze wrap to remain in place until 04/21/23 follow up. Pt has an appointment at the wound clinic on 04/21/23 patient likely to remain inpatient. Dr. Montgomery notified patient inpatient will follow up on for topical treatment recommendations for the left lower leg. Left Leg Etiology: ??Venous Wound - follows with out pt wound clinic for treatment Wound Bed: Left medial mallelous - pink clean moist wound bed Left Lateral gaiter region - red moist granulation tissue noted with adherent yellow slough scattered throughout wound bed Drainage / Odor: drainage - yellow hedrick odor noted on secondary dressing - no odor after cleansing of wound bed Zenobia wound: ? No Induration, Fluctuance or Warmth noted Pain: denies at this time Goals of Treatment: ? Durafiber AG for moisture management and antimicrobial properties Right Dorsal foot and heel - Wound not assessed today - direct care team to provide dressing change. Etiology: ??Arterial Wound - follows with out pt wound clinic for treatment - s/p vascular procedure this admission with Dr. Abraham Goals of Treatment: ? per outpt wound clinic orders - 2nd toe, dorsal wound and heel moist wound healing with Collagen wound gel remaining wounds paint with Betadine to keep dry and stable Recommendations: 1. Turn and Reposition every 2 hours and as needed for patient comfort.? Use pillows or wedges to support off loading positions. 2. Off Load all bony prominences with use of pillows and heel boots if needed.? Apply Preventative foams where needed. ? 3. Monitor for incontinence and moisture control, use barrier creams when needed for prevention and treatment. 4. Provide adequate and supplemental nutrition.? 5. Order or Continue low air loss mattress. 6. When applicable maintain blood glucose levels per Providers order. 7. Left Leg - Cleanse with NS, Pat dry.? Apply barrier to periwound, cover wound bed with cut to size Durafiber AG.? Cover with Abdpad, gauze wrap and change every other day. 8. Right Foot and Heel - 2nd toe, dorsal wound and heel Cleanse with Ns moist gauze, dry. Apply Collagen wound gel cover with gauze, remaining wounds paint with Betadine to keep dry and stable, cover with gauze wrap. Change Daily. Recommend follow up out patient Wound Clinic at [address] [place] [id number] and to call for an appointment at time of discharge. [phone]. - Keep follow up appointment with Dr. Abraham at time of discharge. Re-consult wound care Nurse for wound deterioration or wound changes.
--- NOTE | 2023-04-21 14:09 | HO.PM.IMPN ---
Subjective Subjective Date of Service: 04/21/23 Interval History: Feeling better this morning, better pain control, complaining of constipation, no shortness of breath, no chest pain, no palpitation, no lightheadedness or dizziness. Review of Systems All other system reviewed and negative Physical Exam Vital Signs: Vital Signs: Last Vital Signs Temp 99.3 F 04/21/23 07:36 Pulse 87 04/21/23 10:42 Resp 20 04/21/23 07:36 BP 170/75 H 04/21/23 10:42 Pulse Ox 97 04/21/23 10:42 O2 Del Method Room Air 04/21/23 07:36 O2 Flow Rate 0.5 04/20/23 15:36 Oxygen Flow Rate 2 04/20/23 07:00 BMI result Body Mass Index 35.8 Const: Other: General awake alert x3,in no acute distress. Neck no JVD. CVS regular rate rhythm, systolic murmur Respiratory lungs clear to auscultation, no respiratory distress, no wheeze, no rhonchi. Gastrointestinal abdomen soft, nontender, bowel sounds audible Extremities left foot dressing in place, peripheral edema resolved Neuro non focal , slow to response Skin no rash Psych appropriate affect/anxious/emotional Objective Data Active Medications Acetaminophen (Acetaminophen 325 Mg Tablet) 650 mg PO Q6H PRN PRN Reason: Pain, Mild (Pain Scale 1-3) Last Admin: 04/21/23 08:10 Dose: 650 mg Documented By: BRENDA Aspirin (Aspirin Enteric Coated 81 Mg Tablet.) 81 mg PO BEDTIME [facility] Last Admin: 04/20/23 20:56 Dose: 81 mg Documented By: AGA Atorvastatin Calcium (Atorvastatin Calcium 80 Mg Tablet) 80 mg PO DAILY [facility] Last Admin: 04/21/23 08:11 Dose: 80 mg Documented By: BRENDA Clopidogrel Bisulfate (Clopidogrel Bisulfate 75 Mg Tablet) 75 mg PO DAILY [facility] Last Admin: 04/21/23 08:11 Dose: 75 mg Documented By: BRENDA Docusate Sodium (Docusate Sodium 100 Mg Capsule) 200 mg PO DAILY [facility] Last Admin: 04/21/23 12:19 Dose: 200 mg Documented By: BRENDA Ezetimibe (Ezetimibe 10 Mg Tablet) 10 mg PO DAILY [facility] Last Admin: 04/21/23 08:10 Dose: 10 mg Documented By: BRENDA Furosemide (Furosemide 40 Mg/4 Ml Vial) 40 mg IVPUSH DAILY [facility]; Protocol Last Admin: 04/21/23 08:12 Dose: 40 mg Documented By: BRENDA Heparin Sodium (Porcine) (Heparin Sodium,Porcine 5,000 Unit/Ml Vial) 5,000 unit SUBCUT Q8H [facility] Last Admin: 04/21/23 12:20 Dose: 5,000 unit Documented By: BRENDA Hydromorphone HCl (Hydromorphone Hcl 0.5 Mg/0.5 Ml Syringe) 0.5 mg IVPUSH Q4H PRN; Protocol PRN Reason: Pain, Severe (Pain Scale 7-10) Last Admin: 04/21/23 09:54 Dose: 0.5 mg Documented By: BRENDA Levothyroxine Sodium (Levothyroxine Sodium 175 Mcg Tablet) 175 mcg PO DAILY [facility] Last Admin: 04/21/23 08:10 Dose: 175 mcg Documented By: BRENDA Losartan Potassium (Losartan Potassium 50 Mg Tablet) 50 mg PO DAILY [facility]; Protocol Last Admin: 04/21/23 11:28 Dose: Not Given Documented By: BRENDA Non-Admin Reason: per Oxycodone HCl (Oxycodone Hcl Immed Release 5 Mg Tablet) 5 mg PO Q4H PRN PRN Reason: Pain, Moderate(Pain Scale 4-6) Last Admin: 04/21/23 08:10 Dose: 5 mg Documented By: BRENDA Polyethylene Glycol (Polyethylene Glycol 3350 17 Gm Powd.Pack) 17 gm PO DAILY [facility] Last Admin: 04/21/23 12:20 Dose: 17 gm Documented By: BRENDA Potassium Phos/Sodium Phos (Sodium,Potassium Phosphates Powd.Pack) 1 packet PO BID [facility] Last Admin: 04/21/23 08:11 Dose: 1 packet Documented By: BRENDA Pregabalin (Pregabalin 150 Mg Capsule) 150 mg PO DAILY [facility] Last Admin: 04/21/23 08:10 Dose: 150 mg Documented By: BRENDA Pregabalin (Pregabalin 200 Mg Capsule) 200 mg PO DAILY@1999 [facility] Last Admin: 04/20/23 20:56 Dose: 200 mg Documented By: AGA Sodium Chloride (0.9 % Sodium Chloride Flush 3 Ml Syringe) 3 ml IVFLUSH QSHIFT [facility] Last Admin: 04/21/23 08:11 Dose: 3 ml Documented By: BRENDA Labs 04/21/23 06:37 04/21/23 06:37 Labs: Laboratory Results - last 24 hr 04/21/23 06:37 MCV 90.4 MCH 28.8 MCHC 31.8 RDW 14.0 Plt Count 186 MPV 10.4 Absolute Nucleated RBC 0.000 Nucleated RBC % (auto) 0.0 Anion Gap 13 Estim Creat Clear Calc 110.7 Estimated GFR > 60 Random Glucose 111 Calcium 8.6 Assessment and Plan (1) Essential hypertension: Status: Acute (2) Acute congestive heart failure: Status: Acute (3) Status post femoral-popliteal bypass surgery: Status: Acute Plan 67 year female underwent vascular surgery and postoperatively developed sudden onset of shortness of breath and found to be in acute CHF treated with IV Lasix with good response. Acute onset of CHF with preserved EF Shortness of breath improved, status post IV Lasix 60 mg, on Lasix IV 40 mg , will transition to by mouth Lasix Echo showed EF greater than 70%, no wall motion abnormality, abnormal diastolic function Stable electrolytes and renal function and BNP/follow I and Os Elevated troponin likely due to acute CHF and hypoxia No chest discomfort. Seen by cardiology, no evidence of acute coronary syndrome, continue management of CHF, echo showed no wall motion abnormality. LDL 33, total cholesterol 94 Hypertensive urgency likely due to CHF and pain Blood pressure improved , treated with nitro paste, dose of losartan increased to 50 mg, monitor BP Peripheral arterial disease status post surgery postoperative day 2 Being followed by vascular surgery Continue aspirin, Plavix and Lipitor Continue current Pain management, oxycodone, IV Dilaudid prn and Lyrica ,add incentive spirometry and stool softeners. Obesity recommend low-calorie diet DVT prophylaxis heparin with heparin subQ Code status full code Disposition as per vascular surgery Being followed by Physical therapy they recommend short-term rehab Quality Stroke Does the patient have a stroke diagnosis?: No VTE Prior VTE?: No VTE Risk Level:: Medical - moderate - high VTE Device Contraindication: N/A - Device Ordered VTE Drug Contraindication: N/A - Med Ordered
--- NOTE | 2023-04-21 14:40 | PM.PNCARD ---
Subjective Subjective Date of Service: 04/21/23 Interval history: Seen examined at bedside. ECHO reviewed and discussed with the patient. Blood pressure continues to be elevated. Physical Exam Vital Signs: Last Vital Signs Temp 99.3 F 04/21/23 07:36 Pulse 87 04/21/23 10:42 Resp 20 04/21/23 07:36 BP 170/75 H 04/21/23 10:42 Pulse Ox 97 04/21/23 10:42 O2 Del Method Room Air 04/21/23 07:36 O2 Flow Rate 0.5 04/20/23 15:36 Oxygen Flow Rate 2 04/20/23 07:00 BMI result Body Mass Index 35.8 GENERAL APPEARANCE: in no acute distress, pleasant. NECK: Bilateral carotid bruit, no jugular venous distention. SKIN: no suspicious lesions, warm and dry. HEART: systolic murmur aortic area, regular rate and rhythm. LUNGS: clear to auscultation bilaterally. ABDOMEN: soft, nontender. EXTREMITIES: Mild edema. Left foot in dressing. PERIPHERAL PULSES: equal. NEUROLOGIC: No gross deficits, AAO X 3 Objective Labs and Meds 04/21/23 06:37 04/21/23 06:37 Lab results: Laboratory Results - last 24 hr 04/21/23 06:37 WBC 9.5 RBC 3.13 L Hgb 9.0 L Hct 28.3 L MCV 90.4 MCH 28.8 MCHC 31.8 RDW 14.0 Plt Count 186 MPV 10.4 Absolute Nucleated RBC 0.000 Nucleated RBC % (auto) 0.0 Sodium 139 Potassium 3.8 Chloride 105 Carbon Dioxide 25 Anion Gap 13 BUN 14 Creatinine 0.59 Estim Creat Clear Calc 110.7 Estimated GFR > 60 Random Glucose 111 Calcium 8.6 Imaging Radiologist's impression: Impressions Head CT 04/20/23 16:21 IMPRESSION: No new acute intracranial abnormality. 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 Bilateral proptosis on the basis of increased intraoral fat deposition and may be seen in the setting of thyroid eye disease and can be correlated clinically with thyroid function tests. Slight exotropia of the left globe. Progress Note: A&P Assessment and plan (1) Essential hypertension: Status: Acute (2) Acute congestive heart failure: Status: Acute Plan Pleasant 67 year female with known history of coronary disease and peripheral arterial disease who came for fem-pop bypass and post surgery developed pulmonary edema in setting of elevated blood pressures. She was diuresed and is currently feeling better. She is off oxygen. Euvolemic by examination. Blood pressure continues to be elevated. We will titrate her blood pressure medications. Echocardiography is not showing any wall motion abnormalities. She had a mild elevation in troponin due to hypertension and congestive heart failure. This is not clinically acute coronary syndrome. We will follow along with you. Thank you for allowing me to participate in the care of your patient. Please feel free to contact me if you have any questions. Time Spent With Patient Time: Total time managing care of this patient today ____ minutes. Progress Note: Quality Stroke Does the patient have a stroke diagnosis?: No Procedures Date of Service Date of Service: 04/21/23
--- NOTE | 2023-04-21 15:27 | MHC.CM.PN ---
CM met with pt. today to discuss DC plan. Referrals have been made and updated for acute rehab. She said she would rather go home but she was having falls before coming here at home. Pt became teary, CM asked her to think about it and we would touch base tomorrow.
[2023-04-21 15:29] VITALS: BP 162/72; PULSE 79; RESP 20; TEMP 37; O2SAT 98
[2023-04-21] MEDS: Aspirin Enteric Coated 81 MG TABLET.DR PO (19:49)
[2023-04-21 20:00] VITALS: TEMP 38.1
[2023-04-21] MEDS: Pregabalin 200 MG CAPSULE PO (21:39)
[2023-04-22] VITALS (8 sets, daily range): BP systolic 122–161; BP diastolic 41–68; PULSE 73–86; RESP 18–20; TEMP 36.1–37.2; O2SAT 94–98
[2023-04-22] MEDS: Heparin Sodium,Porcine 5,000 UNIT/ML VIAL 5000 UNIT SUBCUT ×3 (05:48→19:58)
[2023-04-22] MEDS: oxyCODONE HCl Immed Release 5 MG TABLET PO ×4 (06:14→19:28)
[2023-04-22 07:23] LABS: MANUAL DIFF FLAG NO
[2023-04-22 07:40] LABS: Basophils Percent Auto 0.4 % (0-2); Eosinophils Absolute Auto 0.3 X10*3/uL (0.0-0.4); Eosinophils Percent Auto 2.9 % (0-4); Hematocrit 29.6 % (37.0-47.0); Hemoglobin 9.3 g/dl (12.0-16.0); Imm Gran Abs Auto 0.02 X10*3/uL (0.00-0.03); Imm Gran Pct Auto 0.2 % (0.0-0.4); Lymphocytes Absolute Auto 2.1 X10*3/uL (1.2-4.9); Lymphocytes Percent Auto 23.1 % (20-40); Mean Corpuscular HGB Conc 31.4 g/dl (31.0-35.0); Mean Corpuscular Hemoglobin 28.6 pg (27.0-33.0); Mean Corpuscular Volume 91.1 fL (80.0-98.0); Mean Platelet Volume 10.8 fL (9.4-12.3); Monocytes Absolute Auto 1.1 X10*3/uL (0.1-1.2); Monocytes Percent Auto 12.4 % (2-11); Neutrophils Absolute Auto 5.6 x10*3/uL (2.0-8.3); Platelet Count 219 X10*3/uL (160-400); Red Blood Count 3.25 X10*6/uL (4.20-5.50); Red Cell Distribution Width 13.7 % (11.0-16.0); White Blood Count 9.2 X10*3/uL (4.8-10.8)
[2023-04-22 07:48] LABS: Anion Gap 15 (12-20); Blood Urea Nitrogen 15 mg/dL (9-16); Carbon Dioxide 24 mmol/L (22-29); Chloride 104 mmol/L (96-108); Creatinine Clr Calc Pharmacy 130.6; Estimated Glomerular Filt Rate > 60; Glucose Random 90 mg/dL (60-115); Potassium 3.9 mmol/L (3.3-5.1); Sodium 139 mmol/L (135-145)
[2023-04-22] MEDS: HYDROmorphone HCl 0.5 MG/0.5 ML SYRINGE IVPUSH ×4 (08:33→21:19)
[2023-04-22] MEDS: Pregabalin 150 MG CAPSULE PO (08:45)
[2023-04-22] MEDS: Docusate Sodium 100 MG CAPSULE 200 MG PO (08:45)
[2023-04-22] MEDS: Sodium,Potassium Phosphates POWD.PACK 1 PACKET PO ×2 (08:45→19:58)
[2023-04-22] MEDS: Clopidogrel Bisulfate 75 MG TABLET PO (08:45)
[2023-04-22] MEDS: Ezetimibe 10 MG TABLET PO (08:45)
[2023-04-22] MEDS: Losartan Potassium 50 MG TABLET PO (08:45)
[2023-04-22] MEDS: Levothyroxine Sodium 175 MCG TABLET PO (08:45)
[2023-04-22] MEDS: Furosemide 40 MG/4 ML VIAL IVPUSH (08:45)
[2023-04-22] MEDS: Atorvastatin Calcium 80 MG TABLET PO (08:45)
[2023-04-22] MEDS: polyethylene glycoL 3350 17 GM POWD.PACK PO (08:45)
[2023-04-22] MEDS: 0.9 % Sodium Chloride Flush 3 ML SYRINGE IVFLUSH ×3 (08:46→19:59)
--- NOTE | 2023-04-22 10:50 | HO.VASCPN ---
Subjective Subjective Date of Service: 04/22/23 Patient reports: no new complaints and feels better Interval history: Patient seen and examined. Doing significantly better today. Reports pain well controlled. She is just more uncomfortable being in bed all this time. She now presents for follow-up. Physical Exam Vital Signs: Vital Signs: Last Vital Signs Temp 98.7 F 04/22/23 07:59 Pulse 79 04/22/23 07:59 Resp 20 04/22/23 07:59 BP 161/68 H 04/22/23 07:59 Pulse Ox 97 04/22/23 07:59 O2 Del Method Nasal Cannula 04/22/23 07:59 O2 Flow Rate 1 04/22/23 07:59 Oxygen Flow Rate 1 04/22/23 07:00 BMI result Body Mass Index 35.8 Const: General: cooperative, healthy appearing and no acute distress Orientation/consciousness: oriented to person, oriented to place and oriented to time HEENT: Head: Yes normal to inspection Neck: Carotids: no bruits Chest: Chest palpation & inspection: normal inspection of the chest Resp: Effort & Inspection: normal respiratory effort and able to speak in complete sentences Auscultation: clear to auscultation bilaterally Cardio: Other: Biphasic right posterior tibial signal. Signal over graft triphasic Rate: regular rate Heart sounds: S1 normal heart sound present and S2 normal heart sound present GI: Inspection: Yes normal to inspection Skin: General skin exam: no rashes or lesions noted Wounds: no wounds Neuro: General: oriented to person, oriented to place, oriented to time and CN's II-XI intact bilaterally Extrem: General: Yes normal to inspection, Yes full ROM and Yes no clubbing, cyanosis or edema Psych: Appearance: grossly normal and well kempt Speech and movement: Normal speech and movement present Affect: normal affect Progress Note: A&P Assessment and plan (1) Status post femoral-popliteal bypass surgery: Status: Acute Assessment and Plan: Doing well status post fem distal bypass with saphenous vein. Stable from my perspective for discharge. The case was discussed with the cardiology team along with the hospitalist team. Case management is involved and attempting rehab placement for later today. Will plan for discharge Time Spent With Patient Time: Total time managing care of this patient today ____ minutes. Procedures Date of Service Date of Service: 04/22/23 Quality Stroke Does the patient have a stroke diagnosis?: No VTE Prior VTE?: No VTE Risk Level:: Medical - moderate - high VTE Device Contraindication: N/A - Device Ordered VTE Drug Contraindication: N/A - Med Ordered
[2023-04-22 11:04] LABS: Phosphorus 4.3 mg/dL (2.7-4.5)
--- NOTE | 2023-04-22 11:25 | P.PNCA_ITS ---
Subjective Subjective Date of Service: 04/22/23 Interval history: Seen examined at bedside. Feeling better. Physical Exam Vital Signs: Last Vital Signs Temp 98.5 F 04/22/23 11:10 Pulse 86 04/22/23 11:10 Resp 19 04/22/23 11:10 BP 131/56 L 04/22/23 11:10 Pulse Ox 94 04/22/23 11:10 O2 Del Method Room Air 04/22/23 11:10 O2 Flow Rate 1 04/22/23 07:59 Oxygen Flow Rate 1 04/22/23 07:00 BMI result Body Mass Index 35.8 GENERAL APPEARANCE: in no acute distress, pleasant. NECK: Bilateral carotid bruit, no jugular venous distention. SKIN: no suspicious lesions, warm and dry. HEART: systolic murmur aortic area, regular rate and rhythm. LUNGS: clear to auscultation bilaterally. ABDOMEN: soft, nontender. EXTREMITIES: Mild edema. Left foot in dressing. PERIPHERAL PULSES: equal. NEUROLOGIC: No gross deficits, AAO X 3 Objective Labs and Meds 04/22/23 06:32 04/22/23 06:32 Lab results: Laboratory Results - last 24 hr 04/22/23 06:32 WBC 9.2 RBC 3.25 L Hgb 9.3 L Hct 29.6 L MCV 91.1 MCH 28.6 MCHC 31.4 RDW 13.7 Plt Count 219 MPV 10.8 Immature Gran % (Auto) 0.2 Neut % (Auto) 61.0 Lymph % (Auto) 23.1 [place] % (Auto) 12.4 H Eos % (Auto) 2.9 Baso % (Auto) 0.4 Lymph # (Auto) 2.1 [place] # (Auto) 1.1 Eos # (Auto) 0.3 Baso # (Auto) 0.0 Abs Immat Gran (auto) 0.02 Absolute Neuts (auto) 5.6 Absolute Nucleated RBC 0.000 Nucleated RBC % (auto) 0.0 Sodium 139 Potassium 3.9 Chloride 104 Carbon Dioxide 24 Anion Gap 15 BUN 15 Creatinine 0.50 Estim Creat Clear Calc 130.6 Estimated GFR > 60 Random Glucose 90 Calcium 9.0 Phosphorus 4.3 Progress Note: A&P Assessment and plan (1) Essential hypertension: Status: Acute (2) Acute congestive heart failure: Status: Acute Plan [age] year female with known history of coronary disease with previous PCI, hypertension and peripheral vascular disease and was here for fem-pop bypass and developed heart failure after surgery. This was due to volume resuscitation and significantly elevated blood pressures. She has been diuresed and clinically appears euvolemic at this point. Can be changed to oral diuretics 40 mg daily. On losartan 50 mg daily. Added amlodipine 5 mg daily. Would monitor and titrate medications. Thank you for allowing me to participate in the care of your patient. Please feel free to contact me if you have any questions. Time Spent With Patient Time: Total time managing care of this patient today ____ minutes. Progress Note: Quality Stroke Does the patient have a stroke diagnosis?: No Procedures Date of Service Date of Service: 04/22/23
[2023-04-22] MEDS: amLODIPine Besylate 5 MG TABLET PO (11:53)
--- NOTE | 2023-04-22 12:08 | HO.PM.IMPN ---
Subjective Subjective Date of Service: 04/22/23 Interval History: Overall feeling better, good pain control, no shortness of breath, no chest pain, no lightheadedness, or dizziness, blood pressure trending down, being followed by Physical therapy they recommended short-term rehab. Review of Systems All other system reviewed and negative. Physical Exam Vital Signs: Vital Signs: Last Vital Signs Temp 98.5 F 04/22/23 11:10 Pulse 86 04/22/23 11:10 Resp 19 04/22/23 11:10 BP 131/56 L 04/22/23 11:10 Pulse Ox 94 04/22/23 11:10 O2 Del Method Room Air 04/22/23 11:10 O2 Flow Rate 1 04/22/23 07:59 Oxygen Flow Rate 1 04/22/23 07:00 BMI result Body Mass Index 35.8 Const: Other: General awake alert x3,in no acute distress. Neck no JVD. CVS regular rate rhythm, systolic murmur Respiratory lungs clear to auscultation, no respiratory distress, no wheeze, no rhonchi. Gastrointestinal abdomen soft, nontender, bowel sounds audible Extremities left foot dressing in place, peripheral edema resolved Neuro non focal , slow to response Skin no rash Psych appropriate affect/anxious Objective Data Active Medications Acetaminophen (Acetaminophen 325 Mg Tablet) 650 mg PO Q6H PRN PRN Reason: Pain, Mild (Pain Scale 1-3) Last Admin: 04/21/23 21:12 Dose: 650 mg Documented By: DYLON Amlodipine Besylate (Amlodipine Besylate 5 Mg Tablet) 5 mg PO DAILY [facility]; Protocol Last Admin: 04/22/23 11:53 Dose: 5 mg Documented By: CELSO Aspirin (Aspirin Enteric Coated 81 Mg Tablet.) 81 mg PO BEDTIME [facility] Last Admin: 04/21/23 19:49 Dose: 81 mg Documented By: DYLON Atorvastatin Calcium (Atorvastatin Calcium 80 Mg Tablet) 80 mg PO DAILY [facility] Last Admin: 04/22/23 08:45 Dose: 80 mg Documented By: CELSO Clopidogrel Bisulfate (Clopidogrel Bisulfate 75 Mg Tablet) 75 mg PO DAILY [facility] Last Admin: 04/22/23 08:45 Dose: 75 mg Documented By: CELSO Docusate Sodium (Docusate Sodium 100 Mg Capsule) 200 mg PO DAILY [facility] Last Admin: 04/22/23 08:45 Dose: 200 mg Documented By: CELSO Ezetimibe (Ezetimibe 10 Mg Tablet) 10 mg PO DAILY [facility] Last Admin: 04/22/23 08:45 Dose: 10 mg Documented By: CELSO Furosemide (Furosemide 40 Mg Tablet) 40 mg PO DAILY [facility]; Protocol Last Admin: 04/22/23 09:21 Dose: Not Given Documented By: CELSO Non-Admin Reason: Previously Administered Heparin Sodium (Porcine) (Heparin Sodium,Porcine 5,000 Unit/Ml Vial) 5,000 unit SUBCUT Q8H [facility] Last Admin: 04/22/23 12:00 Dose: 5,000 unit Documented By: CELSO Hydromorphone HCl (Hydromorphone Hcl 0.5 Mg/0.5 Ml Syringe) 0.5 mg IVPUSH Q4H PRN; Protocol PRN Reason: Pain, Severe (Pain Scale 7-10) Last Admin: 04/22/23 08:33 Dose: 0.5 mg Documented By: CELSO Levothyroxine Sodium (Levothyroxine Sodium 175 Mcg Tablet) 175 mcg PO DAILY [facility] Last Admin: 04/22/23 08:45 Dose: 175 mcg Documented By: CELSO Losartan Potassium (Losartan Potassium 50 Mg Tablet) 50 mg PO DAILY [facility]; Protocol Last Admin: 04/22/23 08:45 Dose: 50 mg Documented By: CELSO Oxycodone HCl (Oxycodone Hcl Immed Release 5 Mg Tablet) 5 mg PO Q4H PRN PRN Reason: Pain, Moderate(Pain Scale 4-6) Last Admin: 04/22/23 11:54 Dose: 5 mg Documented By: CELSO Polyethylene Glycol (Polyethylene Glycol 3350 17 Gm Powd.Pack) 17 gm PO DAILY [facility] Last Admin: 04/22/23 08:45 Dose: 17 gm Documented By: CELSO Potassium Phos/Sodium Phos (Sodium,Potassium Phosphates Powd.Pack) 1 packet PO BID [facility] Last Admin: 04/22/23 08:45 Dose: 1 packet Documented By: CELSO Pregabalin (Pregabalin 150 Mg Capsule) 150 mg PO DAILY [facility] Last Admin: 04/22/23 08:45 Dose: 150 mg Documented By: CELSO Pregabalin (Pregabalin 200 Mg Capsule) 200 mg PO DAILY@1999 [facility] Last Admin: 04/21/23 21:39 Dose: 200 mg Documented By: DYLON Sodium Chloride (0.9 % Sodium Chloride Flush 3 Ml Syringe) 3 ml IVFLUSH QSHIFT [facility] Last Admin: 04/22/23 08:46 Dose: 3 ml Documented By: CELSO Labs 04/22/23 06:32 04/22/23 06:32 Labs: Laboratory Results - last 24 hr 04/22/23 06:32 MCV 91.1 MCH 28.6 MCHC 31.4 RDW 13.7 Plt Count 219 MPV 10.8 Immature Gran % (Auto) 0.2 Neut % (Auto) 61.0 Lymph % (Auto) 23.1 [place] % (Auto) 12.4 H Eos % (Auto) 2.9 Baso % (Auto) 0.4 Lymph # (Auto) 2.1 [place] # (Auto) 1.1 Eos # (Auto) 0.3 Baso # (Auto) 0.0 Abs Immat Gran (auto) 0.02 Absolute Neuts (auto) 5.6 Absolute Nucleated RBC 0.000 Nucleated RBC % (auto) 0.0 Anion Gap 15 Estim Creat Clear Calc 130.6 Estimated GFR > 60 Random Glucose 90 Calcium 9.0 Phosphorus 4.3 Assessment and Plan (1) Essential hypertension: Status: Acute (2) Acute congestive heart failure: Status: Acute (3) Status post femoral-popliteal bypass surgery: Status: Acute Plan 67 year female underwent vascular surgery and postoperatively developed sudden onset of shortness of breath and found to be in acute CHF treated with IV Lasix with good response. Acute onset of CHF with preserved EF Shortness of breath resolved Status post IV Lasix , now transitioned to by mouth Lasix 40 mg daily. Echo showed EF greater than 70%, no wall motion abnormality, abnormal diastolic function. Stable electrolytes and renal function Stable electrolytes and renal function and BNP/follow I and Os. Elevated troponin likely due to acute CHF and hypoxia No chest discomfort. Seen by cardiology, no evidence of acute coronary syndrome, continue management of CHF, echo showed no wall motion abnormality. LDL 33, total cholesterol 94 Hypertensive urgency likely due to CHF and pain. Blood pressure improved , dose of losartan increased to 50 mg, Norvasc 5 mg added, follow blood pressure closely and adjust dose of medications. Peripheral arterial disease status post surgery postoperative day 2 Being followed by vascular surgery Continue aspirin, Plavix and Lipitor Continue current Pain management, oxycodone, IV Dilaudid prn and Lyrica ,incentive spirometry and stool softeners. Seen by Physical therapy they recommend short-term rehab Obesity recommend low-calorie diet DVT prophylaxis heparin with heparin subQ Code status full code Disposition as per vascular surgery Quality Stroke Does the patient have a stroke diagnosis?: No VTE Prior VTE?: No VTE Risk Level:: Medical - moderate - high VTE Device Contraindication: N/A - Device Ordered VTE Drug Contraindication: N/A - Med Ordered
--- NOTE | 2023-04-22 12:32 | MHC.CM.PN ---
Addendum entered by Kareen Carter 04/22/23 13:12: This CM spoke with pt about D/C plan to [facility] tomorrow, and she is in agreement with plan. Original Note: EMR reviewed and per MD rounds, pt is medically cleared for D/C. [facility] can offer pt a bed tomorrow 04/23 and are requesting she arrive at 1:30pm. Surgeon updated.
[2023-04-22] MEDS: Acetaminophen 325 MG TABLET 650 MG PO (15:04)
[2023-04-22] MEDS: Pregabalin 200 MG CAPSULE PO (19:58)
[2023-04-22] MEDS: Aspirin Enteric Coated 81 MG TABLET.DR PO (19:59)
--- NOTE | 2023-04-22 21:09 | P.DS_ITS ---
<Statement entered by Karsten Abraham MD - 04/25/23 07:45> upon dc pain was well controlled DS: Providers Provider Date of Service: 04/22/23 Date of admission: 04/18/23 05:54 Primary care physician: Agueda Ann MD Consults: 04/18/23 15:34 Consult to Wound Care Routine Reason for consultation: Arterial [id number] right foot 04/19/23 10:16 Consult to Hospitalist Routine Comment: Consulting Provider: Hospitalist Reason For Exam: Medical comanagement per vascular surgery request 04/19/23 10:42 Consult to Wound Care Routine Reason for consultation: open wounds to bl feet Has provider been notified: Yes 04/20/23 01:44 Consult to Cardiology Routine Consulting Provider: Manuel Wing Reason for consultation: Pulmonary congestion, elevated troponin Has provider been notified: Yes DS: Diagnosis Discharge Diagnosis (1) Essential hypertension: Status: Acute (2) Acute congestive heart failure: Status: Acute (3) Status post femoral-popliteal bypass surgery: Status: Acute DS: Summary Hospital Course Hospital Course: patient underwent right femoral to distal bypass on Tuesday04/18/23. Post op was watched in ICU for 24 hours. [address] transferred to [facility]. Did have a rapid responce secondary to fluid overload. Recovered well. Was ambulating with assist on D/C Status at Discharge Overall status at discharge: patient is back to baseline Time Attestation Discharge coordination time: Greater than 30 minutes Quality: Safe Use of Opioids Does Pt have an Active Cancer Diagnosis on the Problem List?: No Quality: Stroke Does the patient have a stroke diagnosis?: No Physical Exam Vital Signs: Vital Signs: Last Vital Signs Temp 98.9 F 04/22/23 19:58 Pulse 80 04/22/23 19:58 Resp 18 04/22/23 19:58 BP 146/49 H 04/22/23 19:58 Pulse Ox 96 04/22/23 19:58 O2 Del Method Room Air 04/22/23 19:58 O2 Flow Rate 1 04/22/23 07:59 Oxygen Flow Rate 1 04/22/23 07:00 BMI result Body Mass Index 35.8 Const: General: cooperative, healthy appearing and no acute distress Orientation/consciousness: oriented to person, oriented to place and oriented to time HEENT: Head: Yes normal to inspection Neck: Carotids: no bruits Chest: Chest palpation & inspection: normal inspection of the chest Resp: Effort & Inspection: normal respiratory effort and able to speak in complete sentences Auscultation: clear to auscultation bilaterally Cardio: Rate: regular rate Heart sounds: S1 normal heart sound present and S2 normal heart sound present GI: Inspection: Yes normal to inspection Skin: Other: right leg incision well healed General skin exam: no rashes or lesions noted Wounds: no wounds Neuro: General: oriented to person, oriented to place, oriented to time and CN's II-XI intact bilaterally Extrem: General: Yes normal to inspection, Yes full ROM and Yes no clubbing, cyanosis or edema Psych: Appearance: grossly normal and well kempt Speech and movement: Normal speech and movement present Affect: normal affect DS: Data Data Completed and Pending Completed studies during hospitalization [Text1]: Pending at discharge 04/18/23 12:26 Surgical [PTH] Routine Procedures Extirpation of Matter from Left Common Carotid Artery, Open Approach (11/24/20) Supplement Left Common Carotid Artery with Synthetic Substitute, Open Approach (11/24/20) Labs on day of discharge: Laboratory Results - last 24 hr 04/22/23 06:32 WBC 9.2 RBC 3.25 L Hgb 9.3 L Hct 29.6 L MCV 91.1 MCH 28.6 MCHC 31.4 RDW 13.7 Plt Count 219 MPV 10.8 Immature Gran % (Auto) 0.2 Neut % (Auto) 61.0 Lymph % (Auto) 23.1 [place] % (Auto) 12.4 H Eos % (Auto) 2.9 Baso % (Auto) 0.4 Lymph # (Auto) 2.1 [place] # (Auto) 1.1 Eos # (Auto) 0.3 Baso # (Auto) 0.0 Abs Immat Gran (auto) 0.02 Absolute Neuts (auto) 5.6 Absolute Nucleated RBC 0.000 Nucleated RBC % (auto) 0.0 Sodium 139 Potassium 3.9 Chloride 104 Carbon Dioxide 24 Anion Gap 15 BUN 15 Creatinine 0.50 Estim Creat Clear Calc 130.6 Estimated GFR > 60 Random Glucose 90 Calcium 9.0 Phosphorus 4.3 Discharge Plan Discharge Anticipated Discharge Date/Time: 04/23/23 13:30 Patient Disposition: Xfer [facility] Discharge Diagnosis: s/p right femoral to distal bypass Referrals: [facility] [Other] Agueda Ann MD [Primary Care Provider] - 1 Week Discharge Medications: New losartan 50 mg Tablet 50 mg PO DAILY Qty: 30 0RF Protocol: Hold for SBP< HOLD for SBP < : 90 polyethylene glycol 3350 17 gram Powder In Packet 17 g PO DAILY Qty: 30 0RF amlodipine 5 mg Tablet 5 mg PO DAILY Qty: 30 0RF Protocol: Hold for SBP< HOLD for SBP < : 90 docusate sodium 100 mg Capsule 200 mg PO DAILY Qty: 30 0RF furosemide 40 mg Tablet 40 mg PO DAILY Qty: 30 0RF Protocol: Hold for SBP< HOLD for SBP < : 90 oxycodone 5 mg Tablet 5 mg PO Q4H PRN (Reason: Pain, Moderate(Pain Scale 4-6)) Qty: 14 0RF Rx Instructions: Partial Fill upon patient request. Continued calcium citrate-vitamin D3 315 mg-6.25 mcg (250 unit) tablet 2 tab PO DAILY aspirin 81 mg Tablet,Delayed Release (Dr/Ec) 81 mg PO BEDTIME acetaminophen-codeine 300-60 mg tablet 1 tab PO Q4H PRN (Reason: pain) Opurity Multivitamin 30 mg iron- 800 mcg Tablet,Chewable 1 tab PO DAILY metformin 500 mg tablet extended release 24 hr 500 mg PO DAILY ezetimibe 10 mg tablet 10 mg PO DAILY clopidogrel 75 mg tablet 75 mg PO DAILY atorvastatin 20 mg tablet 80 mg PO DAILY Patient Comments: Cannot swallow 80 mg tablet, so 4-20 mg tablets go down easier levothyroxine 100 mcg tablet 175 mcg PO QAM pregabalin [Lyrica] 150 mg capsule 150 mg PO DAILY pregabalin [Lyrica] 200 mg capsule 200 mg PO .DAILY@1999 Discontinued losartan 25 mg tablet 25 mg PO DAILY Discharge Orders: Discharge Order (Routine); Ordered 04/23/23 Ordered By: Jeffery Marques Diet: Advance to usual diet Activity on Discharge: As tolerated Stand Alone Forms: Patient Portal Discharge page Activity Restrictions/Additional Instructions: Take it easy today and you may ambulate around the house. You may climb a flight of stairs as tolerated Do not lift anything heavier than a gallon of milk See Dr. Abraham in follow-up in approximately 2 weeks time. You should already have an appointment if not please call my office at [phone] Please see above for any change in medications If you notice excessive bleeding from the leg please immediately call my office or return to the emergency room. Wound orders 1. Left Leg - Cleanse with NS, Pat dry.? Apply barrier to periwound, cover wound bed with cut to size Durafiber AG.? Cover with Abdpad, gauze wrap and change every other day. 2. Right Foot and Heel - 2nd toe, dorsal wound and heel Cleanse with Ns moist gauze, dry. Apply Collagen wound gel cover with gauze, remaining wounds paint with Betadine to keep dry and stable, cover with gauze wrap. Change Daily. Care Plan Goals: surveilence follow up of bypass heal wounds Use oxycodone 5 mg q.4 hours as needed for pain patient has low threshold for pain may use extra dose of oxycodone if needed Health Concerns: peripheral vascular disease wounds of legs Plan of Treatment: outpatient follow up of bypass Assessment: s/p right femoral to distal bypass Discharge Date/Time: 04/23/23 14:12
[2023-04-23 01:04] VITALS: RESP 18
[2023-04-23] MEDS: HYDROmorphone HCl 0.5 MG/0.5 ML SYRINGE IVPUSH ×3 (01:04→12:02)
[2023-04-23 03:54] VITALS: BP 153/59; PULSE 81; RESP 16; TEMP 37; O2SAT 93
[2023-04-23] MEDS: Heparin Sodium,Porcine 5,000 UNIT/ML VIAL 5000 UNIT SUBCUT ×2 (05:08→12:02)
[2023-04-23] MEDS: oxyCODONE HCl Immed Release 5 MG TABLET PO ×3 (05:09→13:35)
[2023-04-23 06:48] VITALS: RESP 20
[2023-04-23 06:58] VITALS: BP 140/64; PULSE 76; RESP 18; TEMP 36.9; O2SAT 95
[2023-04-23 07:02] VITALS: O2SAT 95
[2023-04-23] MEDS: 0.9 % Sodium Chloride Flush 3 ML SYRINGE IVFLUSH (09:18)
[2023-04-23] MEDS: polyethylene glycoL 3350 17 GM POWD.PACK PO (09:18)
[2023-04-23] MEDS: Clopidogrel Bisulfate 75 MG TABLET PO (09:18)
[2023-04-23] MEDS: Docusate Sodium 100 MG CAPSULE 200 MG PO (09:18)
[2023-04-23] MEDS: Sodium,Potassium Phosphates POWD.PACK 1 PACKET PO (09:19)
[2023-04-23] MEDS: Levothyroxine Sodium 175 MCG TABLET PO (09:19)
[2023-04-23] MEDS: Furosemide 40 MG TABLET PO (09:19)
[2023-04-23] MEDS: Atorvastatin Calcium 80 MG TABLET PO (09:19)
[2023-04-23] MEDS: Ezetimibe 10 MG TABLET PO (09:19)
[2023-04-23] MEDS: Losartan Potassium 50 MG TABLET PO (09:19)
[2023-04-23] MEDS: Pregabalin 150 MG CAPSULE PO (09:19)
[2023-04-23] MEDS: amLODIPine Besylate 5 MG TABLET PO (09:19)
--- NOTE | 2023-04-23 10:11 | P.PNIM_ITS ---
Subjective Subjective Date of Service: 04/23/23 Interval History: Good pain control requiring oxycodone 5 mg q.4 hours as needed, had 1 dose of IV Dilaudid this morning, requiring IV Dilaudid only once daily, denies shortness of breath, no chest pain no nausea, no vomiting, no abdominal pain tolerating diet. Review of Systems All other system reviewed and negative. Physical Exam 2 Vital Signs: Vital Signs: Last Vital Signs Temp 98.4 F 04/23/23 06:58 Pulse 76 04/23/23 06:58 Resp 18 04/23/23 06:58 BP 140/64 H 04/23/23 06:58 Pulse Ox 95 04/23/23 07:02 O2 Del Method Room Air 04/23/23 07:02 O2 Flow Rate 1 04/22/23 07:59 Oxygen Flow Rate 1 04/22/23 07:00 BMI result Body Mass Index 35.8 Const: Other: General awake alert x3,in no acute distress. Neck no JVD. CVS regular rate rhythm, systolic murmur Respiratory lungs clear to auscultation, no respiratory distress, no wheeze, no rhonchi. Gastrointestinal abdomen soft, non tender, bowel sounds audible Extremities left foot dressing in place, peripheral edema resolved Neuro non focal , slow to response Skin no rash Psych appropriate affect/very emotional Objective Data Active Medications Acetaminophen (Acetaminophen 325 Mg Tablet) 650 mg PO Q6H PRN PRN Reason: Pain, Mild (Pain Scale 1-3) Last Admin: 04/22/23 15:04 Dose: 650 mg Documented By: CELSO Amlodipine Besylate (Amlodipine Besylate 5 Mg Tablet) 5 mg PO DAILY [facility]; Protocol Last Admin: 04/23/23 09:19 Dose: 5 mg Documented By: VIOLA Aspirin (Aspirin Enteric Coated 81 Mg Tablet.) 81 mg PO BEDTIME [facility] Last Admin: 04/22/23 19:59 Dose: 81 mg Documented By: EDMUND Atorvastatin Calcium (Atorvastatin Calcium 80 Mg Tablet) 80 mg PO DAILY [facility] Last Admin: 04/23/23 09:19 Dose: 80 mg Documented By: VIOLA Clopidogrel Bisulfate (Clopidogrel Bisulfate 75 Mg Tablet) 75 mg PO DAILY [facility] Last Admin: 04/23/23 09:18 Dose: 75 mg Documented By: VIOLA Docusate Sodium (Docusate Sodium 100 Mg Capsule) 200 mg PO DAILY [facility] Last Admin: 04/23/23 09:18 Dose: 200 mg Documented By: VIOLA Ezetimibe (Ezetimibe 10 Mg Tablet) 10 mg PO DAILY [facility] Last Admin: 04/23/23 09:19 Dose: 10 mg Documented By: VIOLA Furosemide (Furosemide 40 Mg Tablet) 40 mg PO DAILY [facility]; Protocol Last Admin: 04/23/23 09:19 Dose: 40 mg Documented By: VIOLA Heparin Sodium (Porcine) (Heparin Sodium,Porcine 5,000 Unit/Ml Vial) 5,000 unit SUBCUT Q8H [facility] Last Admin: 04/23/23 05:08 Dose: 5,000 unit Documented By: EDMUND Hydromorphone HCl (Hydromorphone Hcl 0.5 Mg/0.5 Ml Syringe) 0.5 mg IVPUSH Q4H PRN; Protocol PRN Reason: Pain, Severe (Pain Scale 7-10) Last Admin: 04/23/23 06:48 Dose: 0.5 mg Documented By: EDMUND Levothyroxine Sodium (Levothyroxine Sodium 175 Mcg Tablet) 175 mcg PO DAILY [facility] Last Admin: 04/23/23 09:19 Dose: 175 mcg Documented By: VIOLA Losartan Potassium (Losartan Potassium 50 Mg Tablet) 50 mg PO DAILY [facility]; Protocol Last Admin: 04/23/23 09:19 Dose: 50 mg Documented By: VIOLA Oxycodone HCl (Oxycodone Hcl Immed Release 5 Mg Tablet) 5 mg PO Q4H PRN PRN Reason: Pain, Moderate(Pain Scale 4-6) Last Admin: 04/23/23 09:19 Dose: 5 mg Documented By: VIOLA Polyethylene Glycol (Polyethylene Glycol 3350 17 Gm Powd.Pack) 17 gm PO DAILY [facility] Last Admin: 04/23/23 09:18 Dose: 17 gm Documented By: VIOLA Potassium Phos/Sodium Phos (Sodium,Potassium Phosphates Powd.Pack) 1 packet PO BID [facility] Last Admin: 04/23/23 09:19 Dose: 1 packet Documented By: VIOLA Pregabalin (Pregabalin 150 Mg Capsule) 150 mg PO DAILY [facility] Last Admin: 04/23/23 09:19 Dose: 150 mg Documented By: VIOLA Pregabalin (Pregabalin 200 Mg Capsule) 200 mg PO DAILY@1999 [facility] Last Admin: 04/22/23 19:58 Dose: 200 mg Documented By: ALVINOUMCIARA Sodium Chloride (0.9 % Sodium Chloride Flush 3 Ml Syringe) 3 ml IVFLUSH QSHIFT [facility] Last Admin: 04/23/23 09:18 Dose: 3 ml Documented By: VIOLA Labs 04/22/23 06:32 04/22/23 06:32 Labs: Laboratory Results - last 24 hr 04/22/23 06:32 Phosphorus 4.3 Assessment and Plan (1) Essential hypertension: Status: Acute (2) Acute congestive heart failure: Status: Acute (3) Status post femoral-popliteal bypass surgery: Status: Acute Plan 67 year female underwent vascular surgery and postoperatively developed sudden onset of shortness of breath and found to be in acute CHF treated with IV Lasix with good response. Acute onset of CHF with preserved EF Shortness of breath resolved Status post IV Lasix , now transitioned to by mouth Lasix 40 mg daily. Echo showed EF greater than 70%, no wall motion abnormality, abnormal diastolic function. Stable electrolytes and renal function and BNP Elevated troponin likely due to acute CHF and hypoxia No chest discomfort. Seen by cardiology, no evidence of acute coronary syndrome, continue management of CHF, echo showed no wall motion abnormality. LDL 33, total cholesterol 94 Hypertensive urgency likely due to CHF and pain. Blood pressure improved , dose of losartan increased to 50 mg, Norvasc 5 mg added, follow blood pressure closely and adjust dose of medications. Peripheral arterial disease status post surgery postoperative day 2 Being followed by vascular surgery Continue aspirin, Plavix and Lipitor Continue current Pain management, oxycodone 5 mg q.4 hours as needed and Lyrica , encourage incentive spirometry and continue stool softeners. Patient has low threshold for pain. Seen by Physical therapy they recommend short-term rehab Obesity recommend low-calorie diet DVT prophylaxis heparin with heparin subQ Code status full code Disposition as per vascular surgery, likely to short-term rehab today. Quality Stroke Does the patient have a stroke diagnosis?: No VTE Prior VTE?: No VTE Risk Level:: Medical - moderate - high VTE Device Contraindication: N/A - Device Ordered VTE Drug Contraindication: N/A - Med Ordered
[2023-04-23] MEDS: Acetaminophen 325 MG TABLET 650 MG PO (12:03)
[2023-04-23 13:43] VITALS: BP 125/60; PULSE 86; RESP 16; TEMP 36.4; O2SAT 96
== END 2023-04-23 14:12 | disposition skilled nursing facility (03) | DRG 270 ==
LOC: HO.SSSA 06:03 → HO.ICU 13:32 → HO.IMC 04-19 12:33
PROVIDERS: Hospitalist; Internal Medicine; Internal Medicine Pulmonary Disease; Nurse Practitioner; Physician Assistant; Admitting Provider Surgery Vascular Surgery; PCP Family Medicine; Visit Provider Surgery Vascular Surgery
PROC: 04CH0ZZ Extirpation of Matter from Right External Iliac Artery, Open Approach (ICD-10-PCS; principal; 2023-04-18 07:30)
DX: I70.235 Atherosclerosis of native arteries of right leg with ulceration of other part of foot (principal); I50.31 Acute diastolic (congestive) heart failure; J98.11 Atelectasis; I11.0 Hypertensive heart disease with heart failure; I16.0 Hypertensive urgency; L97.519 Non-pressure chronic ulcer of other part of right foot with unspecified severity; I25.10 Atherosclerotic heart disease of native coronary artery without angina pectoris; E03.9 Hypothyroidism, unspecified; E66.9 Obesity, unspecified; Z68.35 Body mass index [BMI] 35.0-35.9, adult; Z20.822 Contact with and (suspected) exposure to COVID-19; Z98.84 Bariatric surgery status; Z79.02 Long term (current) use of antithrombotics/antiplatelets; Z79.82 Long term (current) use of aspirin; Z79.84 Long term (current) use of oral hypoglycemic drugs; Z79.890 Hormone replacement therapy; Z79.899 Other long term (current) drug therapy
CPT/HCPCS: 36415; 70450; 71045; 80048; 80061; 82040; 82803; 83735; 83880; 84100; 84484; 85025; 85027; 85379; 85610; 85730; 86850; 86900; 86901; 87635; 88304; 88311; 93005; 93306; 93971; 94640; 97110; 97116; 97162; 97530; A4648; A4649; C1757; C1758; J0613; J0690; J1100; J1170; J1644; J1940; J2250; J2270; J2305; J2371; J2405; J2598; J2704; J2795; J3010; J7120; P9047; Q9957; Q9967

== ENCOUNTER → 2023-04-18 05:54 | Outpatient (BNV) | payer MEDICARE, MEDICAID, SELFPAY | PROVIDERS: Admitting Provider Surgery Vascular Surgery; PCP Family Medicine; Visit Provider Surgery Vascular Surgery | DX: Z95.828 Presence of other vascular implants and grafts (principal) | CPT/HCPCS: 35305; 35306; 35351; 35371; 35556; 99024 ==

== ENCOUNTER → 2023-04-18 05:54 | Outpatient (BNV) | payer MEDICARE, MEDICAID, SELFPAY | PROVIDERS: Admitting Provider Surgery Vascular Surgery; PCP Family Medicine; Visit Provider Internal Medicine Pulmonary Disease | DX: I73.9 Peripheral vascular disease, unspecified (principal); E78.5 Hyperlipidemia, unspecified; Z95.828 Presence of other vascular implants and grafts | CPT/HCPCS: 99222; 99232 ==

== ENCOUNTER → 2023-04-18 05:54 | Outpatient (BNV) | payer MEDICARE, MEDICAID, SELFPAY | PROVIDERS: Admitting Provider Surgery Vascular Surgery; PCP Family Medicine; Visit Provider Internal Medicine Cardiovascular Disease | DX: I10 Essential (primary) hypertension (principal); I50.9 Heart failure, unspecified | CPT/HCPCS: 99223; 99232 ==

== ENCOUNTER → 2023-04-18 05:54 | Outpatient (BNV) | payer MEDICARE, MEDICAID, SELFPAY | PROVIDERS: Admitting Provider Surgery Vascular Surgery; PCP Family Medicine; Visit Provider Nurse Practitioner Acute Care | DX: I10 Essential (primary) hypertension (principal); I50.9 Heart failure, unspecified; Z95.828 Presence of other vascular implants and grafts | CPT/HCPCS: 99233; 99499 ==

== ENCOUNTER 2023-05-05 14:22 | Outpatient (AMB) | payer MEDICARE, MEDICAID, SELFPAY ==
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
[2023-05-05 14:31] VITALS: BP 130/74; PULSE 84
== END 2023-05-05 15:22 | disposition home or self-care (01) ==
PROVIDERS: PCP Family Medicine; Visit Provider Surgery Vascular Surgery
DX: Z95.828 Presence of other vascular implants and grafts (principal)
CPT/HCPCS: 99024

== ENCOUNTER → 2023-05-05 14:22 | Outpatient (BNVA) | payer MEDICARE, MEDICAID, SELFPAY | PROVIDERS: PCP Family Medicine; Visit Provider Surgery Vascular Surgery | DX: Z95.828 Presence of other vascular implants and grafts (principal) | CPT/HCPCS: 99212 ==

== ENCOUNTER 2023-05-31 10:42 | Outpatient (AMB) | payer MEDICARE, MEDICAID, SELFPAY ==
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
== END 2023-05-31 11:21 | disposition home or self-care (01) ==
LOC: HO.HVS 10:43
PROVIDERS: PCP Family Medicine; Visit Provider Surgery Vascular Surgery
DX: I73.9 Peripheral vascular disease, unspecified (principal)
CPT/HCPCS: 99024

== ENCOUNTER → 2023-05-31 10:42 | Outpatient (BNVA) | payer MEDICARE, MEDICAID, SELFPAY | PROVIDERS: PCP Family Medicine; Visit Provider Surgery Vascular Surgery | DX: I73.9 Peripheral vascular disease, unspecified (principal) | CPT/HCPCS: 99212 ==

== ENCOUNTER 2023-10-10 05:55 | Outpatient (REF) | payer MEDICARE, MEDICAID, SELFPAY ==
[2023-10-10 05:46] LABS: MANUAL DIFF FLAG NO
[2023-10-10 06:29] LABS: Basophils Percent Auto 0.6 % (0-2); Eosinophils Absolute Auto 0.1 X10*3/uL (0.0-0.4); Eosinophils Percent Auto 1.9 % (0-4); Hematocrit 29.2 % (37.0-47.0); Hemoglobin 9.5 g/dl (12.0-16.0); Imm Gran Abs Auto 0.03 X10*3/uL (0.00-0.03); Imm Gran Pct Auto 0.4 % (0.0-0.4); Lymphocytes Absolute Auto 2.2 X10*3/uL (1.2-4.9); Lymphocytes Percent Auto 30.7 % (20-40); Mean Corpuscular HGB Conc 32.5 g/dl (31.0-35.0); Mean Corpuscular Hemoglobin 28.7 pg (27.0-33.0); Mean Corpuscular Volume 88.2 fL (80.0-98.0); Mean Platelet Volume 11.1 fL (9.4-12.3); Monocytes Percent Auto 13.7 % (2-11); Neutrophils Absolute Auto 3.8 x10*3/uL (2.0-8.3); Neutrophils Percent Auto 52.7 % (45-73); Platelet Count 190 X10*3/uL (160-400); Red Blood Count 3.31 X10*6/uL (4.20-5.50); Red Cell Distribution Width 17.7 % (11.0-16.0); White Blood Count 7.2 X10*3/uL (4.8-10.8)
[2023-10-10 06:51] LABS: Anion Gap 15 (12-20); Blood Urea Nitrogen 20 mg/dL (9-16); Calcium 8.5 mg/dL (8.4-10.2); Carbon Dioxide 19 mmol/L (22-29); Chloride 109 mmol/L (96-108); Estimated Glomerular Filt Rate > 60; Glucose Random 66 mg/dL (60-115); Potassium 4.2 mmol/L (3.3-5.1); Sodium 139 mmol/L (135-145)
== END 2023-10-10 05:56 | disposition home or self-care (01) ==
LOC: HO.MMNH1L 05:55
PROVIDERS: Visit Provider Family Medicine
DX: M62.59 Muscle wasting and atrophy, not elsewhere classified, multiple sites (principal); E46 Unspecified protein-calorie malnutrition; E11.9 Type 2 diabetes mellitus without complications
CPT/HCPCS: 36415; 80048; 85025

== ENCOUNTER 2023-10-17 06:07 | Outpatient (REF) | payer MEDICARE, MEDICAID, SELFPAY ==
[2023-10-17 06:03] LABS: MANUAL DIFF FLAG NO
[2023-10-17 06:45] LABS: Basophils Percent Auto 0.4 % (0-2); Eosinophils Absolute Auto 0.2 X10*3/uL (0.0-0.4); Eosinophils Percent Auto 2.6 % (0-4); Hematocrit 28.8 % (37.0-47.0); Imm Gran Abs Auto 0.04 X10*3/uL (0.00-0.03); Imm Gran Pct Auto 0.5 % (0.0-0.4); Lymphocytes Absolute Auto 2.1 X10*3/uL (1.2-4.9); Lymphocytes Percent Auto 27.6 % (20-40); Mean Corpuscular HGB Conc 31.3 g/dl (31.0-35.0); Mean Corpuscular Hemoglobin 27.5 pg (27.0-33.0); Mean Corpuscular Volume 88.1 fL (80.0-98.0); Mean Platelet Volume 11.1 fL (9.4-12.3); Monocytes Absolute Auto 0.8 X10*3/uL (0.1-1.2); Monocytes Percent Auto 10.9 % (2-11); Neutrophils Absolute Auto 4.5 x10*3/uL (2.0-8.3); Platelet Count 286 X10*3/uL (160-400); Red Blood Count 3.27 X10*6/uL (4.20-5.50); White Blood Count 7.7 X10*3/uL (4.8-10.8)
[2023-10-17 06:50] LABS: Anion Gap 16 (12-20); Blood Urea Nitrogen 21 mg/dL (9-16); Carbon Dioxide 21 mmol/L (22-29); Chloride 105 mmol/L (96-108); Estimated Glomerular Filt Rate > 60; Glucose Random 69 mg/dL (60-115); Potassium 4.1 mmol/L (3.3-5.1); Sodium 138 mmol/L (135-145)
== END 2023-10-17 06:08 | disposition home or self-care (01) ==
LOC: HO.MMNH1L 06:07
PROVIDERS: Visit Provider Family Medicine
DX: M62.59 Muscle wasting and atrophy, not elsewhere classified, multiple sites (principal); E46 Unspecified protein-calorie malnutrition; E11.9 Type 2 diabetes mellitus without complications
CPT/HCPCS: 36415; 80048; 85025

== ENCOUNTER 2023-10-24 05:54 | Outpatient (REF) | payer MEDICARE, MEDICAID, SELFPAY ==
[2023-10-24 05:47] LABS: MANUAL DIFF FLAG NO
[2023-10-24 06:31] LABS: Anion Gap 14 (12-20); Blood Urea Nitrogen 15 mg/dL (9-16); Calcium 8.9 mg/dL (8.4-10.2); Carbon Dioxide 24 mmol/L (22-29); Chloride 105 mmol/L (96-108); Estimated Glomerular Filt Rate > 60; Glucose Random 84 mg/dL (60-115); Sodium 139 mmol/L (135-145)
[2023-10-24 07:07] LABS: Basophils Percent Auto 0.2 % (0-2); Eosinophils Percent Auto 0.7 % (0-4); Hematocrit 29.5 % (37.0-47.0); Hemoglobin 9.4 g/dl (12.0-16.0); Imm Gran Abs Auto 0.04 X10*3/uL (0.00-0.03); Imm Gran Pct Auto 0.7 % (0.0-0.4); Lymphocytes Absolute Auto 1.1 X10*3/uL (1.2-4.9); Lymphocytes Percent Auto 19.9 % (20-40); Mean Corpuscular HGB Conc 31.9 g/dl (31.0-35.0); Mean Corpuscular Hemoglobin 27.8 pg (27.0-33.0); Mean Corpuscular Volume 87.3 fL (80.0-98.0); Mean Platelet Volume 11.2 fL (9.4-12.3); Monocytes Absolute Auto 0.8 X10*3/uL (0.1-1.2); Monocytes Percent Auto 14.4 % (2-11); Neutrophils Absolute Auto 3.6 x10*3/uL (2.0-8.3); Neutrophils Percent Auto 64.1 % (45-73); Platelet Count 293 X10*3/uL (160-400); Red Blood Count 3.38 X10*6/uL (4.20-5.50); Red Cell Distribution Width 17.5 % (11.0-16.0); White Blood Count 5.6 X10*3/uL (4.8-10.8)
== END 2023-10-24 05:55 | disposition home or self-care (01) ==
LOC: HO.MMNH1L 05:54
PROVIDERS: Visit Provider Family Medicine
DX: M62.59 Muscle wasting and atrophy, not elsewhere classified, multiple sites (principal); E46 Unspecified protein-calorie malnutrition; E11.9 Type 2 diabetes mellitus without complications
CPT/HCPCS: 36415; 80048; 85025

== ENCOUNTER 2023-12-03 19:23 | Outpatient (REF) | payer MEDICARE, MEDICAID, SELFPAY | END 2023-12-03 19:24 | disposition home or self-care (01) | LOC: HO.LAB 19:23 | PROVIDERS: PCP Family Medicine; Visit Provider Family Medicine | DX: Z13.89 Encounter for screening for other disorder (principal) ==

== ENCOUNTER 2023-12-05 06:15 | Outpatient (REF) | payer MEDICARE, MEDICAID, SELFPAY ==
[2023-12-05 05:53] LABS: MANUAL DIFF FLAG NO
[2023-12-05 06:43] LABS: Anion Gap 14 (12-20); Blood Urea Nitrogen 24 mg/dL (9-16); Calcium 8.6 mg/dL (8.4-10.2); Carbon Dioxide 19 mmol/L (22-29); Chloride 111 mmol/L (96-108); Estimated Glomerular Filt Rate > 60; Glucose Random 72 mg/dL (60-115); Potassium 4.5 mmol/L (3.3-5.1); Sodium 139 mmol/L (135-145)
[2023-12-05 07:01] LABS: Basophils Percent Auto 0.6 % (0-2); Eosinophils Absolute Auto 0.3 X10*3/uL (0.0-0.4); Eosinophils Percent Auto 3.9 % (0-4); Hematocrit 28.4 % (37.0-47.0); Hemoglobin 8.4 g/dl (12.0-16.0); Imm Gran Abs Auto 0.02 X10*3/uL (0.00-0.03); Imm Gran Pct Auto 0.3 % (0.0-0.4); Lymphocytes Absolute Auto 2.2 X10*3/uL (1.2-4.9); Lymphocytes Percent Auto 32.7 % (20-40); Mean Corpuscular HGB Conc 29.6 g/dl (31.0-35.0); Mean Corpuscular Hemoglobin 26.8 pg (27.0-33.0); Mean Corpuscular Volume 90.7 fL (80.0-98.0); Monocytes Absolute Auto 0.7 X10*3/uL (0.1-1.2); Monocytes Percent Auto 9.7 % (2-11); Neutrophils Absolute Auto 3.6 x10*3/uL (2.0-8.3); Neutrophils Percent Auto 52.8 % (45-73); Platelet Count 282 X10*3/uL (160-400); Red Blood Count 3.13 X10*6/uL (4.20-5.50); White Blood Count 6.7 X10*3/uL (4.8-10.8)
== END 2023-12-05 06:16 | disposition home or self-care (01) ==
LOC: HO.MMNH1L 06:15
PROVIDERS: Visit Provider Family Medicine
DX: M62.59 Muscle wasting and atrophy, not elsewhere classified, multiple sites (principal); E46 Unspecified protein-calorie malnutrition; E11.9 Type 2 diabetes mellitus without complications
CPT/HCPCS: 36415; 80048; 85025

== ENCOUNTER 2023-12-12 06:19 | Outpatient (REF) | payer MEDICARE, MEDICAID, SELFPAY ==
[2023-12-12 06:10] LABS: MANUAL DIFF FLAG NO
[2023-12-12 06:56] LABS: Basophils Absolute Auto 0.1 X10*3/uL (0.0-0.2); Basophils Percent Auto 0.9 % (0-2); Eosinophils Absolute Auto 0.3 X10*3/uL (0.0-0.4); Eosinophils Percent Auto 4.6 % (0-4); Hematocrit 25.6 % (37.0-47.0); Imm Gran Abs Auto 0.01 X10*3/uL (0.00-0.03); Imm Gran Pct Auto 0.2 % (0.0-0.4); Lymphocytes Absolute Auto 2.2 X10*3/uL (1.2-4.9); Lymphocytes Percent Auto 38.2 % (20-40); Mean Corpuscular HGB Conc 31.3 g/dl (31.0-35.0); Mean Corpuscular Hemoglobin 27.3 pg (27.0-33.0); Mean Corpuscular Volume 87.4 fL (80.0-98.0); Mean Platelet Volume 10.7 fL (9.4-12.3); Monocytes Absolute Auto 0.7 X10*3/uL (0.1-1.2); Monocytes Percent Auto 11.5 % (2-11); Neutrophils Absolute Auto 2.6 x10*3/uL (2.0-8.3); Neutrophils Percent Auto 44.6 % (45-73); Platelet Count 242 X10*3/uL (160-400); Red Blood Count 2.93 X10*6/uL (4.20-5.50); Red Cell Distribution Width 14.8 % (11.0-16.0); White Blood Count 5.8 X10*3/uL (4.8-10.8)
[2023-12-12 07:28] LABS: Anion Gap 12 (12-20); Blood Urea Nitrogen 24 mg/dL (9-16); Carbon Dioxide 23 mmol/L (22-29); Chloride 109 mmol/L (96-108); Estimated Glomerular Filt Rate > 60; Glucose Random 72 mg/dL (60-115); Potassium 4.1 mmol/L (3.3-5.1); Sodium 140 mmol/L (135-145)
== END 2023-12-12 06:20 | disposition home or self-care (01) ==
LOC: HO.MMNH1L 06:19
PROVIDERS: Visit Provider Family Medicine
DX: M62.59 Muscle wasting and atrophy, not elsewhere classified, multiple sites (principal); E46 Unspecified protein-calorie malnutrition; E11.9 Type 2 diabetes mellitus without complications
CPT/HCPCS: 36415; 80048; 85025

== ENCOUNTER 2023-12-19 06:20 | Outpatient (REF) | payer MEDICARE, MEDICAID, SELFPAY ==
[2023-12-19 06:08] LABS: MANUAL DIFF FLAG NO
[2023-12-19 07:04] LABS: Basophils Percent Auto 0.5 % (0-2); Eosinophils Absolute Auto 0.3 X10*3/uL (0.0-0.4); Eosinophils Percent Auto 4.7 % (0-4); Hematocrit 26.7 % (37.0-47.0); Hemoglobin 8.2 g/dl (12.0-16.0); Imm Gran Abs Auto 0.02 X10*3/uL (0.00-0.03); Imm Gran Pct Auto 0.3 % (0.0-0.4); Lymphocytes Absolute Auto 1.6 X10*3/uL (1.2-4.9); Lymphocytes Percent Auto 24.8 % (20-40); Mean Corpuscular HGB Conc 30.7 g/dl (31.0-35.0); Mean Corpuscular Hemoglobin 27.2 pg (27.0-33.0); Mean Corpuscular Volume 88.7 fL (80.0-98.0); Mean Platelet Volume 10.7 fL (9.4-12.3); Monocytes Absolute Auto 0.8 X10*3/uL (0.1-1.2); Monocytes Percent Auto 12.3 % (2-11); Neutrophils Absolute Auto 3.7 x10*3/uL (2.0-8.3); Neutrophils Percent Auto 57.4 % (45-73); Platelet Count 228 X10*3/uL (160-400); Red Blood Count 3.01 X10*6/uL (4.20-5.50); Red Cell Distribution Width 15.5 % (11.0-16.0); White Blood Count 6.4 X10*3/uL (4.8-10.8)
[2023-12-19 07:29] LABS: Anion Gap 13 (12-20); Blood Urea Nitrogen 26 mg/dL (9-16); Calcium 8.9 mg/dL (8.4-10.2); Carbon Dioxide 20 mmol/L (22-29); Chloride 112 mmol/L (96-108); Estimated Glomerular Filt Rate > 60; Glucose Random 80 mg/dL (60-115); Potassium 4.4 mmol/L (3.3-5.1); Sodium 141 mmol/L (135-145)
== END 2023-12-19 06:21 | disposition home or self-care (01) ==
LOC: HO.MMNH1L 06:20
PROVIDERS: Visit Provider Family Medicine
DX: M62.59 Muscle wasting and atrophy, not elsewhere classified, multiple sites (principal); E46 Unspecified protein-calorie malnutrition; E11.9 Type 2 diabetes mellitus without complications
CPT/HCPCS: 36415; 80048; 85025

== ENCOUNTER 2024-01-09 06:50 | Outpatient (REF) | payer MEDICARE, MEDICAID, SELFPAY ==
[2024-01-09 06:07] LABS: MANUAL DIFF FLAG NO
[2024-01-09 07:10] LABS: Anion Gap 16 (12-20); Blood Urea Nitrogen 33 mg/dL (9-16); Calcium 8.4 mg/dL (8.4-10.2); Carbon Dioxide 21 mmol/L (22-29); Chloride 110 mmol/L (96-108); Estimated Glomerular Filt Rate > 60; Glucose Random 80 mg/dL (60-115); Potassium 4.7 mmol/L (3.3-5.1); Sodium 142 mmol/L (135-145)
[2024-01-09 07:21] LABS: Basophils Percent Auto 0.5 % (0-2); Eosinophils Absolute Auto 0.2 X10*3/uL (0.0-0.4); Eosinophils Percent Auto 3.3 % (0-4); Hematocrit 26.7 % (37.0-47.0); Hemoglobin 8.1 g/dl (12.0-16.0); Imm Gran Abs Auto 0.03 X10*3/uL (0.00-0.03); Imm Gran Pct Auto 0.5 % (0.0-0.4); Lymphocytes Absolute Auto 1.8 X10*3/uL (1.2-4.9); Lymphocytes Percent Auto 30.1 % (20-40); Mean Corpuscular HGB Conc 30.3 g/dl (31.0-35.0); Mean Corpuscular Hemoglobin 26.4 pg (27.0-33.0); Monocytes Absolute Auto 0.7 X10*3/uL (0.1-1.2); Monocytes Percent Auto 11.2 % (2-11); Neutrophils Absolute Auto 3.3 x10*3/uL (2.0-8.3); Neutrophils Percent Auto 54.4 % (45-73); Platelet Count 265 X10*3/uL (160-400); Red Blood Count 3.07 X10*6/uL (4.20-5.50); White Blood Count 6.1 X10*3/uL (4.8-10.8)
== END 2024-01-09 06:51 | disposition home or self-care (01) ==
LOC: HO.MMNH1L 06:50
PROVIDERS: Visit Provider Family Medicine
DX: M62.59 Muscle wasting and atrophy, not elsewhere classified, multiple sites (principal); E46 Unspecified protein-calorie malnutrition; E11.9 Type 2 diabetes mellitus without complications
CPT/HCPCS: 36415; 80048; 85025

== ENCOUNTER 2024-01-16 06:22 | Outpatient (REF) | payer MEDICARE, MEDICAID, SELFPAY ==
[2024-01-16 06:03] LABS: MANUAL DIFF FLAG NO
[2024-01-16 07:10] LABS: Basophils Percent Auto 0.6 % (0-2); Eosinophils Absolute Auto 0.3 X10*3/uL (0.0-0.4); Eosinophils Percent Auto 3.7 % (0-4); Hematocrit 28.1 % (37.0-47.0); Hemoglobin 8.2 g/dl (12.0-16.0); Imm Gran Abs Auto 0.01 X10*3/uL (0.00-0.03); Imm Gran Pct Auto 0.1 % (0.0-0.4); Lymphocytes Absolute Auto 1.8 X10*3/uL (1.2-4.9); Mean Corpuscular HGB Conc 29.2 g/dl (31.0-35.0); Mean Corpuscular Hemoglobin 26.6 pg (27.0-33.0); Mean Corpuscular Volume 91.2 fL (80.0-98.0); Mean Platelet Volume 11.1 fL (9.4-12.3); Monocytes Absolute Auto 0.8 X10*3/uL (0.1-1.2); Monocytes Percent Auto 11.3 % (2-11); Neutrophils Absolute Auto 3.9 x10*3/uL (2.0-8.3); Neutrophils Percent Auto 57.3 % (45-73); Platelet Count 263 X10*3/uL (160-400); Red Blood Count 3.08 X10*6/uL (4.20-5.50); Red Cell Distribution Width 15.1 % (11.0-16.0); White Blood Count 6.7 X10*3/uL (4.8-10.8)
[2024-01-16 07:24] LABS: Anion Gap 13 (12-20); Blood Urea Nitrogen 25 mg/dL (9-16); Calcium 8.9 mg/dL (8.4-10.2); Carbon Dioxide 21 mmol/L (22-29); Chloride 112 mmol/L (96-108); Estimated Glomerular Filt Rate > 60; Glucose Random 81 mg/dL (60-115); Potassium 4.8 mmol/L (3.3-5.1); Sodium 141 mmol/L (135-145)
== END 2024-01-16 06:23 | disposition home or self-care (01) ==
LOC: HO.MMNH1L 06:22
PROVIDERS: Visit Provider Family Medicine
DX: M62.59 Muscle wasting and atrophy, not elsewhere classified, multiple sites (principal); E46 Unspecified protein-calorie malnutrition; E11.9 Type 2 diabetes mellitus without complications
CPT/HCPCS: 36415; 80048; 85025

== ENCOUNTER 2024-01-23 06:20 | Outpatient (REF) | payer MEDICARE, MEDICAID, SELFPAY ==
[2024-01-23 06:04] LABS: MANUAL DIFF FLAG NO
[2024-01-23 07:03] LABS: Basophils Percent Auto 0.4 % (0-2); Eosinophils Absolute Auto 0.2 X10*3/uL (0.0-0.4); Eosinophils Percent Auto 4.1 % (0-4); Hematocrit 26.5 % (37.0-47.0); Imm Gran Abs Auto 0.01 X10*3/uL (0.00-0.03); Imm Gran Pct Auto 0.2 % (0.0-0.4); Lymphocytes Absolute Auto 1.9 X10*3/uL (1.2-4.9); Mean Corpuscular HGB Conc 30.2 g/dl (31.0-35.0); Mean Corpuscular Hemoglobin 26.4 pg (27.0-33.0); Mean Corpuscular Volume 87.5 fL (80.0-98.0); Mean Platelet Volume 11.2 fL (9.4-12.3); Monocytes Absolute Auto 0.7 X10*3/uL (0.1-1.2); Monocytes Percent Auto 12.2 % (2-11); Neutrophils Absolute Auto 2.8 x10*3/uL (2.0-8.3); Neutrophils Percent Auto 50.1 % (45-73); Platelet Count 258 X10*3/uL (160-400); Red Blood Count 3.03 X10*6/uL (4.20-5.50); Red Cell Distribution Width 15.2 % (11.0-16.0); White Blood Count 5.6 X10*3/uL (4.8-10.8)
[2024-01-23 07:11] LABS: Anion Gap 13 (12-20); Blood Urea Nitrogen 30 mg/dL (9-16); Calcium 8.8 mg/dL (8.4-10.2); Carbon Dioxide 20 mmol/L (22-29); Chloride 110 mmol/L (96-108); Estimated Glomerular Filt Rate > 60; Glucose Random 80 mg/dL (60-115); Potassium 4.4 mmol/L (3.3-5.1); Sodium 139 mmol/L (135-145)
== END 2024-01-23 06:21 | disposition home or self-care (01) ==
LOC: HO.MMNH1L 06:20
PROVIDERS: Visit Provider Family Medicine
DX: E11.9 Type 2 diabetes mellitus without complications (principal); E46 Unspecified protein-calorie malnutrition; M62.59 Muscle wasting and atrophy, not elsewhere classified, multiple sites
CPT/HCPCS: 36415; 80048; 85025

== ENCOUNTER 2024-01-30 06:28 | Outpatient (REF) | payer MEDICARE, MEDICAID, SELFPAY ==
[2024-01-30 06:02] LABS: MANUAL DIFF FLAG NO
[2024-01-30 07:10] LABS: Basophils Percent Auto 0.5 % (0-2); Eosinophils Absolute Auto 0.2 X10*3/uL (0.0-0.4); Eosinophils Percent Auto 3.7 % (0-4); Hematocrit 24.2 % (37.0-47.0); Hemoglobin 7.4 g/dl (12.0-16.0); Imm Gran Abs Auto 0.01 X10*3/uL (0.00-0.03); Imm Gran Pct Auto 0.2 % (0.0-0.4); Lymphocytes Absolute Auto 1.9 X10*3/uL (1.2-4.9); Lymphocytes Percent Auto 32.8 % (20-40); Mean Corpuscular HGB Conc 30.6 g/dl (31.0-35.0); Mean Corpuscular Hemoglobin 26.1 pg (27.0-33.0); Mean Corpuscular Volume 85.2 fL (80.0-98.0); Mean Platelet Volume 11.5 fL (9.4-12.3); Monocytes Absolute Auto 0.7 X10*3/uL (0.1-1.2); Monocytes Percent Auto 12.3 % (2-11); Neutrophils Percent Auto 50.5 % (45-73); Platelet Count 238 X10*3/uL (160-400); Red Blood Count 2.84 X10*6/uL (4.20-5.50); Red Cell Distribution Width 15.4 % (11.0-16.0); White Blood Count 5.9 X10*3/uL (4.8-10.8)
[2024-01-30 08:12] LABS: Anion Gap 13 (12-20); Blood Urea Nitrogen 29 mg/dL (9-16); Calcium 8.5 mg/dL (8.4-10.2); Carbon Dioxide 23 mmol/L (22-29); Chloride 110 mmol/L (96-108); Estimated Glomerular Filt Rate > 60; Glucose Random 74 mg/dL (60-115); Potassium 4.4 mmol/L (3.3-5.1); Sodium 142 mmol/L (135-145)
== END 2024-01-30 06:29 | disposition home or self-care (01) ==
LOC: HO.MMNH1L 06:28
PROVIDERS: Visit Provider Family Medicine
DX: M62.59 Muscle wasting and atrophy, not elsewhere classified, multiple sites (principal); E46 Unspecified protein-calorie malnutrition; E11.9 Type 2 diabetes mellitus without complications
CPT/HCPCS: 36415; 80048; 85025

== ENCOUNTER 2024-02-17 12:59 | Outpatient (REF) | payer MEDICARE, MEDICAID, SELFPAY ==
[2024-02-17 13:05] LABS: MANUAL DIFF FLAG NO
[2024-02-17 13:25] LABS: Basophils Percent Auto 0.4 % (0-2); Eosinophils Absolute Auto 0.2 X10*3/uL (0.0-0.4); Eosinophils Percent Auto 3.4 % (0-4); Hematocrit 24.9 % (37.0-47.0); Hemoglobin 7.7 g/dl (12.0-16.0); Imm Gran Abs Auto 0.02 X10*3/uL (0.00-0.03); Imm Gran Pct Auto 0.3 % (0.0-0.4); Lymphocytes Absolute Auto 1.7 X10*3/uL (1.2-4.9); Lymphocytes Percent Auto 23.7 % (20-40); Mean Corpuscular HGB Conc 30.9 g/dl (31.0-35.0); Mean Corpuscular Hemoglobin 25.5 pg (27.0-33.0); Mean Corpuscular Volume 82.5 fL (80.0-98.0); Mean Platelet Volume 11.4 fL (9.4-12.3); Monocytes Absolute Auto 0.7 X10*3/uL (0.1-1.2); Monocytes Percent Auto 9.9 % (2-11); Neutrophils Absolute Auto 4.4 x10*3/uL (2.0-8.3); Neutrophils Percent Auto 62.3 % (45-73); Platelet Count 284 X10*3/uL (160-400); Red Blood Count 3.02 X10*6/uL (4.20-5.50); Red Cell Distribution Width 15.6 % (11.0-16.0); White Blood Count 7.1 X10*3/uL (4.8-10.8)
[2024-02-17 13:43] LABS: Anion Gap 10 (12-20); Blood Urea Nitrogen 21 mg/dL (9-16); Calcium 8.4 mg/dL (8.4-10.2); Carbon Dioxide 24 mmol/L (22-29); Chloride 110 mmol/L (96-108); Estimated Glomerular Filt Rate > 60; Glucose Random 79 mg/dL (60-115); Potassium 4.6 mmol/L (3.3-5.1); Sodium 139 mmol/L (135-145)
== END 2024-02-17 13:00 | disposition home or self-care (01) ==
LOC: HO.MMNH1L 12:59
DX: G92.9 Unspecified toxic encephalopathy (principal)
CPT/HCPCS: 36415; 80048; 85025

== ENCOUNTER 2024-05-17 13:45 | Outpatient (RCR) | payer MEDICARE, MEDICAID, SELFPAY | END 2024-05-31 11:16 | disposition home or self-care (01) | LOC: HO.WCC 13:45 | PROVIDERS: PCP Family Medicine; Visit Provider Surgery | DX: T87.81 Dehiscence of amputation stump (principal); T86.821 Skin graft (allograft) (autograft) failure; Z89.511 Acquired absence of right leg below knee; Z79.84 Long term (current) use of oral hypoglycemic drugs; Z79.891 Long term (current) use of opiate analgesic; Z79.899 Other long term (current) drug therapy | CPT/HCPCS: 11042; 11043; 11046; 99213 ==

== ENCOUNTER 2024-07-02 05:45 | Outpatient (REF) | payer MEDICARE, MEDICAID, SELFPAY ==
[2024-07-02 05:41] LABS: MANUAL DIFF FLAG NO
--- OUTSIDE RECORDS SUMMARY | 2024-07-02 05:51 | XMS_ITS | Clinical Summary ---
Author Organization [facility] it Address [address] [place] [address] Care Team Providers Care Arresting Gear Operator Name Role Phone Unavailable Primary Care Provider Unavailabl e Immunizations Name Administration Dates Next Due Pfizer SARS-CoV-2 COVID-19, mRNA, LNP-S, preservative free 07/02/2020,06/07/2020 Surgical History Surgery Date Site/Laterality Comments NECK SURGERY PROCEDURE: HISTORICAL NECK SURGERY; COMMENT: spinal stenosis TONSILLECTOMY PROCEDURE: HISTORICAL TONSILLECTOMY CHOLECYSTECTOMY 09/1989 PROCEDURE: HISTORICAL CHOLECYSTECTOMY BREAST REDUCTION PROCEDURE: [place] BREAST REDUCTION ROBOTIC ASSISTED HYSTERECTOMY 03/05/14 PROCEDURE: HISTORICAL ROBOTIC HYSTERECTOMY WITH OR WITHOUT BSO; COMMENT: BSO; endometroid adenocarcinoma BREAST BIOPSY PROCEDURE: BX BREAST; PERC NEEDLE CORE W/IMAG GUID; COMMENT: ? rt side noncancerous Medical History Medical History Date Comments HTN (hypertension) DX:HTN (hyper tension) Myasthenia gravis DX:Myasthenia gravis (HCC) Peripheral neuropathy DX:Periphe ral neuropathy Elevated fasting glucose DX:Elev ated fasting glucose CAD (coronary artery disease) DX :CAD (coronary artery disease); COMMENT: h/o stent CVA (cerebral infarction) DX:CVA (cerebral infarction) Spinal stenosis DX:Spinal stenos is Hypothyroidism DX:Hypothyroidis m Leg edema DX:Leg edema Obesity DX:Obesity Type II or unspecified type diabetes mellitus with unspecified complication, not stated as uncontrolled DX:Type II or unspecified t ype diabetes mellitus with unspecified complication, not stated as uncontrolled Endometrial adenocarcinoma (CMS/HCC) DX:Endometrial adenocarcinoma (HCC) History of other specified c onditions presenting hazards to health DX:History of other speci fied conditions presenting hazards to health; COMMENT: pt had ? ca in lining of the uterus pr pt- pt had hysterectomy in feb 2014 Family History Medical History Relation Name Comments Blindness Neg Hx Breast cancer Neg Hx Cataracts Neg Hx Colon cancer Neg Hx Glaucoma Neg Hx Macular degeneration Neg Hx Ovarian cancer Neg Hx Strabismus Neg Hx Social History Tobacco Use Types Packs/Day Years Used Date Smoking Tobacco: Former Smokeless Tobacco: Never Alcohol Use Standard Drinks/Week Comments Yes 0 (1 standard drink = 0.6 oz pur e alcohol) Comments Unknown Sex and Gender Information Value Date Recorded Sex Assigned at Not on file Legal Sex Female 8:27 PM EST Gender Identity Not on file Sexual Orientation Not on file Obstetrics History Plan of Treatment Health Maintenance Due Date Last Done Comments Breast Cancer Screening 1955 Zoster Vaccines (1 of 2) 07/23/2005 Pneumococcal Vaccine: 50+ Years (2 of 2 - PCV) 12/13/2014 12/13/2013 DTaP,Tdap,and Td Vaccines (2 - Td or Tdap) 11/15/2018 11/15/2008 COVID-19 Vaccine (3 - 2023-2 5 season) 2023 07/02/2020, 06/07/2020 Influenza Vaccine (#1) 2023 01/07/2014 RSV Immunization Adult Patients (1 - 1-dose 75+ series) 07/23/2030 HIB Vaccines Aged Out No longer eligi ble based on patient's age to complete this topic HPV Vaccines Aged Out No longer eligi ble based on patient's age to complete this topic Hepatitis A Vaccines Aged Out No long er eligible based on patient's age to complete this topic Hepatitis B Vaccines Aged Out No long er eligible based on patient's age to complete this topic IPV Vaccines Aged Out No longer eligi ble based on patient's age to complete this topic MMR Vaccines Aged Out No longer eligi ble based on patient's age to complete this topic Meningococcal ACWY Vaccine Aged Out N o longer eligible based on patient's age to complete this topic Meningococcal B Vacine Aged Out No lo nger eligible based on patient's age to complete this topic RSV Immunization Patients Under 20 months Aged Out No longer eligible b ased on patient's age to complete this topic Varicella Vaccines Aged Out No longer eligible based on patient's age to complete this topic
--- OUTSIDE RECORDS SUMMARY | 2024-07-02 05:51 | XMS_ITS | Clinical Summary ---
Author Organization [facility] [employer] [facility] [employer] Address [address] [facility] 7t [place] [address] Care Team Providers Care Agronomist Name Role Phone Unavailable Primary Care Provider Unavailabl e Allergies Active Allergy Reactions Criticality Noted Date Comments Pollen Extract 08/27/2014 Medications Clopidogrel Bisulfate (PLAVIX PO) Take by mouth. 11/25/2016 Active acetaminophen (Tylenol 8 Hour) 650 MG ER tablet Take 650 mg by mouth every 8 (eight) hours if needed. 07/26/2022 Active atorvastatin (Lipitor) 20 MG tablet 07/29/2022 Active calcium citrate (Calcitrate) 950 (200 Ca) MG tablet Take 2 tablets by mouth in the morning. Active ezetimibe (Zetia) 10 MG tablet Take 10 mg by mouth in the morning. 05/11/2022 Active gabapentin (Neurontin) 100 MG capsule TAKE 1 CAPSULE BY MOUTH NIGHTLY AT BEDTIME. 04/08/2022 Active levothyroxine (Synthroid, Levoxyl) 175 MCG tablet Take 175 mcg by mouth in the morning. 06/02/2022 Active Social History Tobacco Use Types Packs/Day Years Used Date Smoking Tobacco: Never Smokeless Tobacco: Never Tobacco Cessation:Counseling Given: Not Answered Alcohol Use Standard Drinks/Week Comments Defer 0 (1 standard drink = 0.6 oz pur e alcohol) Comments Unknown Sex and Gender Information Value Date Recorded Sex Assigned at Female 01/25/2022 10:29 AM EDT Legal Sex Female 10:29 AM EDT Gender Identity Female 01/25/2022 10:29 AM EDT Sexual Orientation Straight 01/25/2022 10 :29 AM EDT Plan of Treatment Health Maintenance Due Date Last Done Comments CT Colonography 1955 Colonoscopy 1955 Colorectal Cancer Screening 1955 Dental Oral Exam 1955 Dental Prophylaxis 1955 Dental X-Ray: Full Mouth 1955 Depression Screening 1955 FIT DNA/Cologuard 1955 FIT 1955 FOBT 1955 Lipid Panel 1955 SDOH Screening 1955 Sigmoidoscopy 1955 Alcohol/Substance Use Screening 1967 Hepatitis C Screening 07/23/1973 RSV Patients and Patients Aged 60 years or older (1 - Risk 60-74 years 1-dose series) 2015 Mammogram 03/27/2020 03/27/2018, 02/25, 03/08/2017 Tobacco Screening 05/24/2023 05/24/2022 Dental X-Ray: Bitewings 05/25/2023 05/24/2022 COVID-19 Vaccine ( season) 2023 12/31/2021, 08/03/2021, 12/25/2020, Additional history exists Influenza Vaccine (#1) 2023 , 12/14/2020, 11/29/2019, Additional history exists DTaP/Tdap/Td Vaccines (3 - Td or Tdap) 12/27/2027 12/26/2017, 11/15/2008 Zoster Vaccines Completed 02/27/2019, 11/24/2018 Pneumococcal Vaccine: 50+ Years Completed 01/25/2022, 09/30/2016, 12/13/2013 HIB Vaccines Aged Out No longer eligi [...] patient's age to complete this topic Meningococcal Vaccine Aged Out No kinga blanche eligible based on patient's age to complete this topic RSV under 20 months Aged Out No longe r eligible based on patient's age to complete this topic Rotavirus Vaccines Aged Out No longer eligible based on patient's age to complete this topic Procedures Procedure Name Priority Date/Time Associated Diagnosis Comments BITEWING - SINGLE RADIOGRAPHIC IMAGE Routine 05/24/2022 3:00 PM EST BI MAMMOGRAM SCREENING BILATERAL Routine 03/27/2018 11:20 AM EST from Last 3 Months or Most Recently Relevant to Health Maintenance Results * 3D DIGITAL GIACOMO SCR MAMMO 1 (03/27/2018 11:20 AM EST) Anatomical Region Laterality Modality Breast Bilateral Mammography 03/27/2018 11:2 0 AM EST Narrative 03/27/2018 11:22 AM EST Refer to the Notes tab for result details Legacy Procedure: 3D DIGITAL GIACOMO SCR MAMMO 1 Procedure Note Provider, MD Marilin - 06/19/2022 Refer to the Notes tab for result details Legacy Procedure: 3D DIGITAL GIACOMO SCR MAMMO 1 Truman Dixon MD IMG BI PROCEDURES Final Resul t from Last 3 Months or Most Recently Relevant to Health Maintenance Insurance [facility] MEDICAID STAND ADULT
--- OUTSIDE RECORDS SUMMARY | 2024-07-02 05:51 | XMS_ITS | Encounter Summary ---
Author Organization [employer] Address [address] [place] [address] Care Team Providers Care Putter In Name Role Phone Unavailable Primary Care Provider Unavailabl e Encounter Details Date Type Department Care Team (Latest Contact Info) Description 05/02/2018 Abstract [facility] CONVERSIONS Dental, Provider, DDS Social History Tobacco Use Types Packs/Day Years Used Date Smoking Tobacco: Never Assessed Comments Unknown Sex and Gender Information Value Date Recorded Sex Assigned at Female 01/25/2022 10:29 AM EDT Legal Sex Female 10:29 AM EDT Gender Identity Female 01/25/2022 10:29 AM EDT Sexual Orientation Straight 01/25/2022 10 :29 AM EDT documented as of this encounter Plan of Treatment Not on file documented as of this encounter Visit Diagnoses Not on filedocumented in this encounter
--- OUTSIDE RECORDS SUMMARY | 2024-07-02 05:51 | XMS_ITS | Encounter Summary ---
Author Organization [employer] Address [address] [facility] 7t [place] [address] Care Team Providers Care Door Frame Assembler Machine Name Role Phone Unavailable Primary Care Provider Unavailabl e Encounter Details Date Type Department Care Team (Latest Contact Info) Description 06/29/2021 Abstract [facility] CONVERSIONS Dental, Provider, DDS Social History Tobacco [...]
--- OUTSIDE RECORDS SUMMARY | 2024-07-02 05:51 | XMS_ITS | Patient Health Record ---
Author Organization [facility] Billing Info Address [address] [place] [address] Care Team Providers Care Shear Operator Name Role Phone javidBARTOLO Meyer Unavailable [phone] Reason For Referral No Information Plan Of Treatment No Information
--- OUTSIDE RECORDS SUMMARY | 2024-07-02 05:51 | XMS_ITS | Encounter Summary ---
Author Organization [employer] Address [address] [facility] 7[address] [place] [address] Care Team Providers Care Electrical Equipment Assembler Name Role Phone Unavailable Primary Care Provider Unavailabl e Encounter Details Date Type Department Care Team (Latest Contact Info) Description 07/09/2020 Abstract [facility] CONVERSIONS Dental, Provider, DDS Social History [...]
--- OUTSIDE RECORDS SUMMARY | 2024-07-02 05:51 | XMS_ITS | Encounter Summary ---
Author Organization [employer] Address [address] [facility] [address] [place] [address] Care Team Providers Care Annual Giving Director Name Role Phone Unavailable Primary Care Provider Unavailabl e Reason for Visit * Reason Onset Date Comments medical clearance 05/27/2022 Encounter Details Date Type Department Care Team (Late st Contact Info) Description 05/27/2022 Telephone [facility] [address] [place] [address] Davonte Cunningham DDS medical clearance Social History Tobacco Use Types Packs/Day Years Used Date Smoking Tobacco: Never Smokeless Tobacco: Never Alcohol Use Standard Drinks/Week Comments Defer 0 (1 standard drink = 0.6 oz pur e alcohol) Comments Unknown Sex and Gender Information Value Date Recorded Sex Assigned at Female 01/25/2022 10:29 AM EDT Legal Sex Female 10:29 AM EDT Gender Identity Female 01/25/2022 10:29 AM EDT Sexual Orientation Straight 01/25/2022 10 :29 AM EDT COVID-19 Exposure Response Date Recorded In the last 10 days, have yo u been in contact with someone who was confirmed or suspected to have Coronavirus/COVID-19? No / Unsure 05/24/2022 3:02 PM EST documented as of this encounter Miscellaneous Notes * Telephone Encounter - Anila Carranza - 06/09/2022 12:52 PM EDT Marixa Chan 1955 Medical clearance form was faxed over to physicians office on 06/09 * Telephone Encounter - Anila Carranza - 06/03/2022 9:[address] [facility] called stating that there was a form that was sent in to them due to patient needing treatment. She stated that it was sent a few days ago but they never received it. It was for medical clearance. Pls re send [phone] * Telephone Encounter - Lucina Leigh - 06/03/2022 8:40 AM EST Patient calling in to confirm if medical clearance was received from provider so that she can have her RCT done DR * Telephone Encounter - Lucina Leigh - 05/27/2022 9:[address] [facility] called stating that there was a form that was sent in to them due to patient needing treatment. She stated that it was sent a few days ago but they never received it. It was for medical clearance. Pls re send [phone] documented in this encounter Plan of Treatment Not on file documented as of this encounter Visit Diagnoses Not on filedocumented in this encounter
[2024-07-02 06:45] LABS: Basophils Absolute Auto 0.1 X10*3/uL (0.0-0.2); Basophils Percent Auto 0.7 % (0-2); Eosinophils Absolute Auto 0.1 X10*3/uL (0.0-0.4); Eosinophils Percent Auto 1.5 % (0-4); Hematocrit 26.5 % (37.0-47.0); Hemoglobin 7.9 g/dl (12.0-16.0); Imm Gran Abs Auto 0.02 X10*3/uL (0.00-0.03); Imm Gran Pct Auto 0.3 % (0.0-0.4); Lymphocytes Absolute Auto 1.7 X10*3/uL (1.2-4.9); Lymphocytes Percent Auto 22.2 % (20-40); Mean Corpuscular HGB Conc 29.8 g/dl (31.0-35.0); Mean Corpuscular Hemoglobin 25.7 pg (27.0-33.0); Mean Corpuscular Volume 86.3 fL (80.0-98.0); Mean Platelet Volume 10.8 fL (9.4-12.3); Monocytes Absolute Auto 0.9 X10*3/uL (0.1-1.2); Monocytes Percent Auto 12.5 % (2-11); Neutrophils Absolute Auto 4.7 x10*3/uL (2.0-8.3); Neutrophils Percent Auto 62.8 % (45-73); Platelet Count 275 X10*3/uL (160-400); Red Blood Count 3.07 X10*6/uL (4.20-5.50); Red Cell Distribution Width 17.2 % (11.0-16.0); White Blood Count 7.4 X10*3/uL (4.8-10.8)
[2024-07-02 06:56] LABS: Anion Gap 13 (12-20); Blood Urea Nitrogen 20 mg/dL (9-16); Calcium 8.6 mg/dL (8.4-10.2); Carbon Dioxide 20 mmol/L (22-29); Chloride 110 mmol/L (96-108); Estimated Glomerular Filt Rate > 60; Glucose Random 66 mg/dL (60-115); Potassium 4.4 mmol/L (3.3-5.1); Sodium 139 mmol/L (135-145)
== END 2024-07-02 05:46 | disposition home or self-care (01) ==
LOC: HO.MMNH1L 05:45
PROVIDERS: Visit Provider Student in an Organized Health Care Education/Training Program
DX: F01.A0 Vascular dementia, mild, without behavioral disturbance, psychotic disturbance, mood disturbance, and anxiety (principal); Z89.611 Acquired absence of right leg above knee
CPT/HCPCS: 36415; 80048; 85025

== ENCOUNTER 2024-10-31 05:31 | Outpatient (REF) | payer MEDICARE, MEDICAID, SELFPAY ==
--- OUTSIDE RECORDS SUMMARY | 2024-10-31 05:34 | XMS_ITS | Clinical Summary ---
Author Organization [address] Address [address] [place] [id number] Care Team Providers Care Aircraft Fueler Name Role Phone Unavailable Primary Care Provider Unavailabl e Social History Tobacco Use Types Packs/Day Years Used Date Smoking Tobacco: Never Assessed Comments Unknown Sex and Gender Information Value Date Recorded Sex Assigned at Not on file Legal Sex Female 11:32 AM EST Gender Identity Not on file Sexual Orientation Not on file Plan of Treatment Health Maintenance Due Date Last Done Comments HIV screening 07/23/1968 Hepatitis C screening 07/23/1973 Tetanus adult (Td q 10,TDAP once) 1975 Breast cancer screening 1995 Lipid disorder screening 1995 Colon cancer screening, Colonoscopy 07/23/2000 Diabetes screening 07/23/2000 Pneumococcal Vaccine (50+ ye ars) (1 of 1 - PCV) 07/23/2005 Shingles vaccine (Shingrix) (1 of 2 - Shingrix (RZV) 2 Dose Standard Series) 07/23/2005 Osteoporosis screening (bone density) 07/23/2020 Covid-19 vaccine series ( - 2023-25 season) 2023 Influenza vaccine 11/26/2024 RSV Immunization (1 - 1-dose 75+ series) 07/23/2030 Cervical cancer screening Discontinued Meningococcal Vaccine Aged Out No kinga blanche eligible based on patient's age to complete this topic
--- OUTSIDE RECORDS SUMMARY | 2024-10-31 05:34 | XMS_ITS | Clinical Summary ---
Author Organization [employer] Address [address] [facility] 7t [place] [address] Care Team Providers Care Vinyl Hanger Name Role Phone Unavailable Primary Care Provider [...] 12/25/2020, Additional history exists Influenza Vaccine (#1) 2024 , 12/14/2020, 11/29/2019, Additional history exists DTaP/Tdap/Td [...] age to complete this topic Meningococcal B Vaccine Aged Out No l onger eligible based on patient's age to complete [...]
--- OUTSIDE RECORDS SUMMARY | 2024-10-31 05:34 | XMS_ITS | Patient Health Record ---
Author Organization [address] [place] [address] [address] [facility] Address [address] [id number] Care Team Providers Care Iron And Steel Work Supervisor Name Role Phone BARTOLO Dunbar Supriya [phone] Reason For Referral No Information Plan Of Treatment No Information
--- OUTSIDE RECORDS SUMMARY | 2024-10-31 05:35 | XMS_ITS | Encounter Summary ---
Author Organization [facility] Address [address] [place] [address] Phone Care Team Providers Care Metal Burnisher Name Role Phone Agueda Ann MD Primary Care Provider [phone] Andie Rossi MD Unavailable [phone] West Doll MD Unavailable [phone] Britany Coles MD Unavailable Naun Hoang MD Unavailable + Agueda Ann MD Unavailable Latosha Garcia OT Unavailable Latosha Garcia OT Unavailable [phone] Mely Bhatti RN Unavailable [phone] Encounter Details Date Type Department Care Team (Late st Contact Info) Description 11/04/[address] [facility], [facility] [address] [place] [address] Social History Tobacco Use Types Packs/Day Years Used Date Smoking Tobacco: Never Smokeless Tobacco: Never Alcohol Use Standard Drinks/Week Comments Yes 2 (1 standard drink = 0.6 oz pur e alcohol) Child or Family Care Answer Date Record ed Do you have problems with on e of the following making it difficult for you to work, study, or receive health care? No 01/25/2022 Education Answer Date Recorded Are you interested in help w ith more adult education (for example, completing high school, GED, job training, learning the Yoruba language, technical skills, or developing parenting skills)? No 01/25/2022 Food Answer Date Recorded Within the past 6 months we worried whether our food would run out before we got money to buy more. Sometimes True 022 Within the past 6 months the food we bought just didn't last and we didn't have enough money to get more. Never True 12/28 Residential Stability Answer Date Recor ded What is your housing situation today? I have nazario sing 01/25/2022 How many times have you move d in the past 12 months? Zero (I did not move) 01/25/2022 Paying for Meds Answer Date Recorded Do you have trouble paying for medicines? No 01/25/2022 Paying Utility Bills Answer Date Record ed Do you have trouble paying your heating or elect ricity bill? No 01/25/2022 Transportation Answer Date Recorded Has the lack of transportati on kept you from medical appointments or from getting medications? No 01/25/2022 Unemployment Answer Date Recorded Are you currently unemployed or working on a part-time or temporary basis, and looking for work? No 01/25/2022 Digital Access Answer Date Recorded No 08/17/2022 No 08/17/2022 Reliable internet access at home? Not on file 08/17/2022 Device with a working camera? Not on file Comments No Sex and Gender Information Value Date Recorded Sex Assigned at Female 11/03/2022 5:37 PM EDT Legal Sex Female 7:51 PM EST Gender Identity Female 11/03/2022 5:37 PM EDT Sexual Orientation Not on file documented as of this encounter Functional Status * Calculated C-SSRS Risk Score (Lifetime/Recent) Answer Date of Assessment Author No Risk Indicated 11/04/2022 1:06 AM Lucita Hirsch, NICOLE * [place] Suicide Severity Rating Scale (Screener/Recent Self-Report) Question Answer Date of Assessment Author 1. Wish to be (Past 1 Month) No 023 1:06 AM Lucita Hirsch, NICOLE 2. Non-Specific Active Suici minerva Thoughts (Past 1 Month) No 11/04/2022 1:06 AM EDT Kimi Arevalo RN 6. Suicidal Behavior (Lifetime) No 3 1:06 AM EDT Lucita Arevalo RN documented as of this encounter Plan of Treatment Not on file documented as of this encounter Visit Diagnoses Not on filedocumented in this encounter Additional Health Concerns Assessment Noted Time PHQ-2 Depression Total Score: 0 01/21/20 21 11:07 AM EDT documented as of this encounter Care Teams Metal Burnisher Relationship Specialty Start Date End Date Agueda Ann MD [address] [facility] [address] [place] [address] PCP - General Family Medicine 02/01/19 Andie Rossi MD [address] [place] [address] Neurology 03/02/19 West Doll MD [address] [place] [address] [address] [place] [address] Cardiology 03/02/19 Britany Coles MD [address] [place] [address] [address] [place] [id number] [email or web address] [email or web address] Surgery 03/02/19 Naun Hoang MD [address] [place] [address] Infectious Diseases 03/02/19 Agueda Ann MD [address] [facility] [address] [place] [address] [email or web address] Insurance Assigned Provider 07/02/23 04/02/24 Latosha Garcia, OT [address] [place] [address] [email or web address] [employer] 11/05/22 11/07/22 Latosha Garcia, OT [address] [place] [address] [email or web address] [employer] Administrator[employer] 11/24/22 11/25/22 Mely Bhatti, NICOLE [address] [place] [address] [email or web address] [facility] 05/12/23 06/09/23 documented as of this encounter Additional Source Comments The information contained in this document represents components of the legal health record. It is not the complete legal health record.[facility]
[2024-10-31 06:05] LABS: Uric Acid 8.0 mg/dL (2.4-5.7)
== END 2024-10-31 05:32 | disposition home or self-care (01) ==
LOC: HO.MMNH3L 05:31
PROVIDERS: Visit Provider Nurse Practitioner Family
DX: I73.9 Peripheral vascular disease, unspecified (principal); F01.A0 Vascular dementia, mild, without behavioral disturbance, psychotic disturbance, mood disturbance, and anxiety
CPT/HCPCS: 36415; 84550

== ENCOUNTER 2024-11-19 | Outpatient (REF) | payer MEDICARE, MEDICAID, SELFPAY ==
[2024-11-19 05:58] LABS: MANUAL DIFF FLAG NO
[2024-11-19 06:16] LABS: Anion Gap 12 (12-20); Blood Urea Nitrogen 29 mg/dL (9-16); Calcium 8.3 mg/dL (8.4-10.2); Carbon Dioxide 24 mmol/L (22-29); Chloride 107 mmol/L (96-108); Estimated Glomerular Filt Rate 56; Potassium 5.0 mmol/L (3.3-5.1); Sodium 138 mmol/L (135-145)
[2024-11-19 06:53] LABS: Hematocrit 27.7 % (37.0-47.0); Hemoglobin 8.5 g/dl (12.0-16.0); Imm Gran Abs Auto 0.02 X10*3/uL (0.00-0.03); Imm Gran Pct Auto 0.3 % (0.0-0.4); Lymphocytes Absolute Auto 1.6 X10*3/uL (1.2-4.9); Mean Corpuscular HGB Conc 30.7 g/dl (31.0-35.0); Mean Corpuscular Hemoglobin 26.5 pg (27.0-33.0); Mean Corpuscular Volume 86.3 fL (80.0-98.0); NRBC Abs Auto 0.000 X10*3/uL (0.0-0.012); NRBC Pct Auto 0.0 /100WBC (0.0-0.2); Platelet Count 252 X10*3/uL (160-400); Red Blood Count 3.21 X10*6/uL (4.20-5.50); White Blood Count 7.2 X10*3/uL (4.8-10.8)
== END 2024-11-19 00:01 | disposition home or self-care (01) ==
LOC: HO.MMNH3L
PROVIDERS: Visit Provider Student in an Organized Health Care Education/Training Program
DX: I25.9 Chronic ischemic heart disease, unspecified (principal); I69.398 Other sequelae of cerebral infarction; E03.9 Hypothyroidism, unspecified; Z89.611 Acquired absence of right leg above knee
CPT/HCPCS: 36415; 80048; 85025

== ENCOUNTER 2024-11-27 06:24 | Outpatient (REF) | payer MEDICARE, MEDICAID, SELFPAY ==
[2024-11-27 06:09] LABS: MANUAL DIFF FLAG NO
[2024-11-27 06:22] LABS: Hematocrit 27.7 % (37.0-47.0); Hemoglobin 8.8 g/dl (12.0-16.0); Imm Gran Abs Auto 0.05 X10*3/uL (0.00-0.03); Imm Gran Pct Auto 0.6 % (0.0-0.4); Lymphocytes Absolute Auto 2.0 X10*3/uL (1.2-4.9); Mean Corpuscular HGB Conc 31.8 g/dl (31.0-35.0); Mean Corpuscular Hemoglobin 26.9 pg (27.0-33.0); Mean Corpuscular Volume 84.7 fL (80.0-98.0); NRBC Abs Auto 0.000 X10*3/uL (0.0-0.012); NRBC Pct Auto 0.0 /100WBC (0.0-0.2); Platelet Count 378 X10*3/uL (160-400); Red Blood Count 3.27 X10*6/uL (4.20-5.50); White Blood Count 8.8 X10*3/uL (4.8-10.8)
--- OUTSIDE RECORDS SUMMARY | 2024-11-27 06:31 | XMS_ITS | Clinical Summary ---
Author Organization [facility] it Address [address] [place] [address] Care Team Providers Care Fur Clipper Name Role Phone Unavailable Primary Care Provider Unavailabl e Immunizations Name Administration Dates Next Due Pfizer SARS-CoV-2 COVID-19, mRNA, LNP-S, preservative free 07/02/2020,06/07/2020 Surgical History Surgery Date Site/Laterality Comments NECK SURGERY PROCEDURE: HISTORICAL NECK SURGERY; COMMENT: spinal stenosis TONSILLECTOMY PROCEDURE: HISTORICAL TONSILLECTOMY CHOLECYSTECTOMY 09/1989 PROCEDURE: HISTORICAL CHOLECYSTECTOMY BREAST REDUCTION PROCEDURE: [place] BREAST REDUCTION ROBOTIC ASSISTED HYSTERECTOMY 03/05/14 PROCEDURE: HISTORICAL ROBOTIC HYSTERECTOMY WITH OR WITHOUT BSO; COMMENT: BSO; endometroid adenocarcinoma BREAST BIOPSY PROCEDURE: BX BREAST; PERC NEEDLE CORE W/IMAG GUID; COMMENT: ? rt side noncancerous Medical History Medical History Date Comments HTN (hypertension) DX:HTN (hyper tension) Myasthenia gravis (CMS/HCC V 24, CMS/HCC V28) DX:Myasthenia gravis (HCC) Peripheral neuropathy DX:Periphe ral [...] complication, not stated as uncontrolled Endometrial adenocarcinoma ( CMS/HCC V24, CMS/HCC V28) DX:Endometrial adenocarcinom a (HCC) History of other specified c onditions [...] (2 - Td or Tdap) 11/15/2018 11/15/2008 Depression Screening 03/28/2024 COVID-19 Vaccine (3 - 2024-2 6 season) 2024 07/02/2020, 06/07/2020 Influenza Vaccine (#1) 2024 01/07/2014 RSV Immunization Adult Patients (1 - [...]
--- OUTSIDE RECORDS SUMMARY | 2024-11-27 06:31 | XMS_ITS | Clinical Summary ---
Author Organization [address] Address [address] [place] [phone] Care Team Providers Care Talent Solutions Manager Name Role Phone Unavailable Primary Care Provider [...] density) 07/23/2020 Covid-19 vaccine series ( - 2023- season) 2023 Influenza vaccine 11/26/2024 RSV Immunization (1 - 1-dose 75+ series) 07/23/2030 Cervical cancer screening Discontinued Meningococcal B Vaccine Aged Out No l onger eligible based on patient's age to complete this topic Meningococcal Vaccine Aged Out No kinga blanche eligible based on patient's age to complete this topic
--- OUTSIDE RECORDS SUMMARY | 2024-11-27 06:32 | XMS_ITS | Encounter Summary ---
Author Organization [facility] Address [address] [place] [address] Phone Care Team Providers Care Plant Floor Automation Manager Name Role Phone Agueda Ann MD Primary Care Provider [phone] Andie Rossi MD Unavailable [phone] West Doll MD Unavailable Britany Coles MD Unavailable Naun Hoang MD Unavailable + Agueda Ann MD Unavailable Mely Bhatti RN Unavailable Encounter Details Date Type Department Care Team (Late st Contact Info) Description 12/25/2022 Procedure Pass [facility] [address] [place] [address] Social History Tobacco Use Types Packs/Day Years Used Date Smoking Tobacco: Never Smokeless Tobacco: Never Alcohol Use Standard Drinks/Week Comments Not Currently 2 (1 standard drink = 0.6 oz pur e alcohol) Home Health Assessment: Transportation Answer Date Recorded Lack of Transportation (Medical) No 12/28/2022 Lack of Transportation (Non-Medical) No 12/28/2022 Patient Unable or Declines to Respond No 12/28/2022 Child or Family Care Answer Date Record ed Do you have problems with on e of the following making it difficult for you to work, study, or receive health care? No 01/25/2022 Education Answer Date Recorded Are you interested in help w ith more adult education (for example, completing high school, GED, job training, learning the Lao language, technical skills, or developing parenting skills)? [...] on file documented as of this encounter Plan of Treatment Not on file documented as of this encounter Visit Diagnoses Not on filedocumented in this encounter Additional Health Concerns Assessment Noted Time PHQ-2 Depression Total Score: 0 01/21/20 21 11:07 AM EDT documented as of this encounter Care Teams Plant Floor Automation Manager Relationship Specialty Start Date End Date Agueda Ann MD [address] [place] [address] [email or web address] PCP - General Family Medicine 02/01/19 Andie Rossi MD 48 [place] [address] Neurology 03/02/19 West Doll MD [address] [place] [address] 104 [place] [address] Cardiology 03/02/19 Britany Coles MD [address] [place] [address] 140 [place] [phone] [email or web address] [email or web address] Surgery 03/02/19 [place] [address] [place] [address] Infectious Diseases 03/02/19 Agueda Ann MD [address] [address] [email or web address] Insurance Assigned Provider 07/02/23 04/02/24 Mely Bhatti, NICOLE [address] [place] [address] iCMP Study Director 05/12/23 06/09/23 documented as of this encounter Additional Source Comments The information contained in this document represents components of the legal health record. It is not the complete legal health record.[facility]
--- OUTSIDE RECORDS SUMMARY | 2024-11-27 06:32 | XMS_ITS | Encounter Summary ---
Author Organization [facility] Address [address] [place] [address] Phone Care Team Providers Care Video Engineer Name Role Phone Agueda Ann MD Primary Care Provider [phone] Andie Rossi MD Unavailable [phone] West Doll MD Unavailable Britany Coles MD Unavailable Naun Hoang MD Unavailable + Agueda Ann MD Unavailable Latosha Garcia OT Unavailable [phone] Latosha Garcia OT Unavailable [phone] Mely Bhatti RN Unavailable [phone] Encounter Details Date Type Department Care Team (Late st Contact Info) Description 07/31/2021 Procedure Pass [facility] Endoscopy Admitting Dept Virtual Department 30 [place] [address] Social History Tobacco Use Types Packs/Day Years Used Date Smoking Tobacco: Never Smokeless Tobacco: Never Alcohol Use Standard Drinks/Week Comments Yes 1 (1 standard drink = 0.6 oz pur e alcohol) Child or Family Care Answer Date Record ed Do you have problems with on e of the following making it difficult for you to work, study, or receive health care? No 01/20/2021 Education Answer Date Recorded Are you interested in help w ith more adult education (for example, completing high school, GED, job training, learning the Bangladeshi language, technical skills, or developing parenting skills)? No 01/20/2021 Food Answer Date Recorded Within the past 6 months we worried whether our food would run out before we got money to buy more. Sometimes True 021 Within the past 6 months the food we bought just didn't last and we didn't have enough money to get more. Never True 12/27 Paying for Meds Answer Date Recorded Do you have trouble paying for medicines? No 01/20/2021 Paying Utility Bills Answer Date Record ed Do you have trouble paying your heating or elect ricity bill? No 01/20/2021 Transportation Answer Date Recorded Has the lack of transportati on kept you from medical appointments or from getting medications? No 01/20/2021 Comments No Sex and Gender Information Value [...] documented as of this encounter Care Teams Video Engineer Relationship Specialty Start Date End Date Agueda Ann MD [address] [place] [address] PCP - General Family Medicine 02/01/19 Andie Rossi MD [address] [place] [address] Neurology 03/02/19 West Doll MD [address] [place] [address] Cardiology 03/02/19 Britany Coles MD 175 [facility] 140 [place] [phone] .[employer] Orthopedic Surgery 03/02/19 aNun Hoang MD [address] [facility] [address] [place] [address] Infectious Diseases 03/02/19 Agueda Ann MD [address] [address] [email or web address] Insurance Assigned Provider 07/02/23 04/02/24 Latosha Garcia, OT 30 [place] [address] [email or web address] Transitions Drill SergeantManager Of Global Therapy 11/05/22 11/07/22 Latosha Garcia, OT 30 [place] [address] [email or web address] Transitions Drill SergeantManager Of Global Therapy 11/24/22 11/25/22 Mely Bhatti, NICOLE 10 [place] [address] iCMP Drill Sergeant 05/12/23 06/09/23 documented as of this encounter Additional Source Comments The information contained in this document represents components of the legal health record. It is not the complete legal health record.[facility]
--- OUTSIDE RECORDS SUMMARY | 2024-11-27 06:32 | XMS_ITS | Encounter Summary ---
Author Organization [facility] Address [address] [place] [address] Phone Care Team Providers Care Taper Operator Name Role Phone Agueda Ann MD Primary Care Provider Andie Rossi MD Unavailable [phone] West Doll MD Unavailable [phone] Britany Coles MD Unavailable Naun Hoang MD Unavailable + Agueda Ann MD Unavailable Mely Bhatti RN Unavailable [phone] Encounter Details Date Type Department Care Team (Late st Contact Info) Description 12/24/2022 Procedure Pass [facility], [facility] 30 [place] [address] Social History Tobacco Use Types Packs/Day Years [...] high school, GED, job training, learning the Ugandan language, technical skills, or developing parenting skills)? [...] Date of Assessment Author No Risk Indicated 12/24/2022 9:29 AM ALEKT Natalya Delgadillo, RN * [place] Suicide Severity Rating Scale (Screener/Recent Self-Report) Question Answer Date of Assessment Author 1. Wish to be (Past 1 Month) No 023 9:29 AM EDT Natalya Delgadillo RN 2. Non-Specific Active Suici minerva Thoughts (Past 1 Month) No 12/24/2022 9:29 AM EDT Natalya Delgadillo RN 6. Suicidal Behavior (Lifetime) No 9:29 AM EDT Natalya Delgadillo RN documented as of this encounter Plan of Treatment Not on file documented as of this encounter Visit Diagnoses Not on filedocumented in this encounter Additional Health Concerns Assessment Noted Time PHQ-2 Depression Total Score: 0 01/21/20 21 11:07 AM EDT documented as of this encounter Care Teams Taper Operator Relationship Specialty Start Date End Date Agueda Ann MD [address] [address] [email or web address] PCP - General Family Medicine 02/01/19 Andie Rsosi MD [address] [place] [address] Neurology 03/02/19 West Doll MD [address] [place] [address] 104 [place] [address] Cardiology 03/02/19 Britany Coles MD [address] [place] [address] 140 [place] [phone] Orthopedic Surgery 03/02/19 Naun Hoang MD [address] [place] [address] Infectious Diseases 03/02/19 Agueda Ann MD 15 [facility] 201 [place] [address] Insurance Assigned Provider 07/02/23 04/02/24 Mely Bhatti, RN [address] [place] [address] [email or web address] iCMP Shaker Plate Operator 05/12/23 06/09/23 documented as of this encounter Additional Source Comments The information contained in this document represents components of the legal health record. It is not the complete legal health record.[facility]
--- OUTSIDE RECORDS SUMMARY | 2024-11-27 06:32 | XMS_ITS | Encounter Summary ---
Author Organization [facility] Address [address] [place] [address] Phone Care Team Providers Care Global Compensation Analyst Name Role Phone Agueda Ann MD Primary Care Provider [phone] Andie Rossi MD Unavailable [phone] West Doll MD Unavailable Britany Coles MD Unavailable Naun Hoang MD Unavailable + Agueda Ann MD Unavailable Latosha Garcia OT Unavailable Latosha Garcia OT Unavailable [phone] Mely Bhatti RN Unavailable [phone] Encounter Details Date Type Department Care Team (Late st Contact Info) Description 11/04/2022 Procedure Pass [facility], [facility] 30 [place] [address] Social History Tobacco Use Types Packs/Day Years [...] high school, GED, job training, learning the Yemeni language, technical skills, or developing parenting skills)? [...] 11/04/2022 1:06 AM Lucita Hirsch, NICOLE * [place] Suicide Severity Rating Scale (Screener/Recent Self-Report) Question [...] documented as of this encounter Care Teams Global Compensation Analyst Relationship Specialty Start Date End Date Agueda Ann MD 15 [facility] 201 [place] [address] PCP - General Family Medicine 02/01/19 Andie Rossi MD [address] [place] [address] Neurology 03/02/19 West Doll MD [address] [place] [address] 104 [place] [address] Cardiology 03/02/19 Britany Coles MD [address] [place] [address] 140 [place] [phone] [email or web address] [email or web address] Surgery 03/02/19 Naun Hoang MD [address] [place] [address] Infectious Diseases 03/02/19 Agueda Ann MD 15 [facility] 201 [place] [address] [email or web address] Insurance Assigned Provider 07/02/23 04/02/24 Latosha Garcia, OT 30 [place] [address] [email or web address] Transitions Welt SlasherStrip Mine Supervisor Therapy 11/05/22 11/07/22 Latosha Garcia, OT 30 [place] [address] [email or web address] Transitions Welt SlasherStrip Mine Supervisor Therapy 11/24/22 11/25/22 Mely Bhatti, NICOLE 10 [place] [address] [email or web address] [facility] Welt Slasher 05/12/23 06/09/23 documented as of this encounter Additional Source Comments The information contained in this document represents components of the legal health record. It is not the complete legal health record.[facility]
--- OUTSIDE RECORDS SUMMARY | 2024-11-27 06:32 | XMS_ITS | Encounter Summary ---
Author Organization [employer] Address [address] [facility] 7t [place] [address] Care Team Providers Care Delivery Merchandiser Name Role Phone Unavailable Primary Care Provider Unavailabl e Encounter Details Date Type Department Care Team (Latest Contact Info) Description 05/02/2018 Abstract [facility] CONVERSIONS Dental, Provider, DDS Social History [...]
--- OUTSIDE RECORDS SUMMARY | 2024-11-27 06:32 | XMS_ITS | Encounter Summary ---
Author Organization [facility] Address [address] [place] [address] Phone Care Team Providers Care Archivist Military History Name Role Phone Agueda Ann MD Primary Care Provider [phone] Andie Rossi MD Unavailable West Doll MD Unavailable [phone] Britany Coles MD Unavailable Naun Hoang MD Unavailable + Agueda Ann MD Unavailable Mely Bhatti RN Unavailable [phone] Encounter Details Date Type Department Care Team (Late st Contact Info) Description 12/24/2022 Procedure Pass [facility], Ct Scan - [facility] 30 [place] [address] Social History Tobacco Use Types Packs/Day Years [...] high school, GED, job training, learning the Congolese language, technical skills, or developing parenting skills)? [...] Author No Risk Indicated 12/24/2022 9:29 AM Natalya Menon, NICOLE * [place] Suicide Severity Rating Scale (Screener/Recent Self-Report) Question [...] documented as of this encounter Care Teams Archivist Military History Relationship Specialty Start Date End Date Agueda Ann MD [address] [address] [email or web address] PCP - General Family Medicine 02/01/19 Andie Rossi MD [address] [place] [address] Neurology 03/02/19 West Doll MD [address] [place] [address] 104 [place] [address] Cardiology 03/02/19 Britany Coles MD [address] [place] [address] 140 [place] [phone] [email or web address] 03/02/19 Naun Hoang MD [address] [place] [address] Infectious Diseases 03/02/19 Agueda Ann MD 15 [facility] 201 [place] [address] [email or web address] Insurance Assigned Provider 07/02/23 04/02/24 Mely Bhatti, RN [address] [place] [address] [email or web address] iCMP Regulatory Administrator 05/12/23 06/09/23 documented as of this encounter Additional Source Comments The information contained in this document represents components of the legal health record. It is not the complete legal health record.[facility]
--- OUTSIDE RECORDS SUMMARY | 2024-11-27 06:32 | XMS_ITS | Encounter Summary ---
Author Organization [facility] Address [address] [place] [address] Phone Care Team Providers Care Nutrition Consultant Name Role Phone Agueda Ann MD Primary Care Provider [phone] Andie Rossi MD Unavailable [phone] West Doll MD Unavailable Britany Coles MD Unavailable Naun Hoang MD Unavailable + Agueda Ann MD Unavailable Mely Bhatti RN Unavailable Encounter Details Date Type Department Care Team (Late st Contact Info) Description 12/25/2022 Procedure Pass Non-Invasive Cardiology 30 [place] [address] Social History Tobacco Use Types Packs/Day Years [...] high school, GED, job training, learning the Dutch language, technical skills, or developing parenting skills)? [...] documented as of this encounter Care Teams Nutrition Consultant Relationship Specialty Start Date End Date Agueda Ann MD [address] [place] [address] [email or web address] PCP - General Family Medicine 02/01/19 Andie Rossi MD 48 [place] [address] Neurology 03/02/19 West Doll MD [address] [place] [address] 104 [place] [address] Cardiology 03/02/19 Britany Coles MD [address] [place] [address] 140 [place] [phone] Orthopedic Surgery 03/02/19 [place] [address] [place] [address] Infectious Diseases 03/02/19 Agueda Ann MD [address] [address] [email or web address] Insurance Assigned Provider 07/02/23 04/02/24 Mely Bhatti, NICOLE [address] [place] [address] iCMP Bottom Stainer 05/12/23 06/09/23 documented as of this encounter Additional Source Comments The information contained in this document represents components of the legal health record. It is not the complete legal health record.[facility]
--- OUTSIDE RECORDS SUMMARY | 2024-11-27 06:32 | XMS_ITS | Encounter Summary ---
Author Organization [facility] Address [address] [place] [address] Phone Care Team Providers Care Associate Director Of Nursing Name Role Phone Agueda Ann MD Primary Care Provider Andie Rossi MD Unavailable West Doll MD Unavailable [phone] Britany Coles MD Unavailable Naun Hoang MD Unavailable + Agueda Ann MD Unavailable Mely Bhatti RN Unavailable Encounter Details Date Type Department Care Team (Late st Contact Info) Description 12/24/2022 Procedure Pass [facility], [facility] 30 [place] [address] Social History Tobacco Use Types Packs/Day Years [...] high school, GED, job training, learning the Tanzanian language, technical skills, or developing parenting skills)? [...] 9:29 AM ALEKT Natalya Delgadillo, RN * [place] Suicide Severity Rating Scale (Screener/Recent Self-Report) Question [...] documented as of this encounter Care Teams Associate Director Of Nursing Relationship Specialty Start Date End Date Agueda Ann MD [address] [address] [email or web address] PCP - General Family Medicine 02/01/19 Andie Rossi MD [address] [place] [address] Neurology 03/02/19 West Doll MD [address] [place] [address] 104 [place] [address] Cardiology 03/02/19 Britany Coles MD [address] [place] [address] 140 [place] [phone] [email or web address] 03/02/19 Naun Hoang MD [address] [place] [address] Infectious Diseases 03/02/19 Agueda Ann MD 15 [facility] 201 [place] [address] Insurance Assigned Provider 07/02/23 04/02/24 Mely Bhatti, RN [address] [place] [address] [email or web address] iCMP Die Out Worker 05/12/23 06/09/23 documented as of this encounter Additional Source Comments The information contained in this document represents components of the legal health record. It is not the complete legal health record.[facility]
--- OUTSIDE RECORDS SUMMARY | 2024-11-27 06:32 | XMS_ITS | Encounter Summary ---
Author Organization [employer] Address [address] [facility] 7t [place] [address] Care Team Providers Care Nursing Home Physician Name Role Phone Unavailable Primary Care Provider Unavailabl e Encounter Details Date Type Department Care Team (Latest Contact Info) Description 07/09/2020 Abstract [facility] CONVERSIONS Dental, Provider, DDS Social History [...]
--- OUTSIDE RECORDS SUMMARY | 2024-11-27 06:32 | XMS_ITS | Encounter Summary ---
Author Organization [facility] Address [address] [place] [address] Phone Care Team Providers Care Buhr Dresser Name Role Phone Agueda Ann MD Primary Care Provider Andie Rossi MD Unavailable [phone] West Doll MD Unavailable Britany Coles MD Unavailable [phone] Naun Hoang MD Unavailable + Agueda Ann MD Unavailable Mely Bhatti RN Unavailable Encounter Details Date Type Department Care Team (Late st Contact Info) Description 12/24/2022 Procedure Pass [facility], Ct Scan - [facility] 30 [place] [address] Social History Tobacco Use Types Packs/Day Years [...] high school, GED, job training, learning the Romanian language, technical skills, or developing parenting skills)? [...] 12/24/2022 9:29 AM Natalya Menon, NICOLE * [place] Suicide Severity Rating Scale (Screener/Recent Self-Report) Question [...] documented as of this encounter Care Teams Buhr Dresser Relationship Specialty Start Date End Date Agueda Ann MD [address] [address] [email or web address] PCP - General Family Medicine 02/01/19 Andie Rossi MD [address] [place] [address] Neurology 03/02/19 West Doll MD [address] [place] [address] 104 [place] [address] Cardiology 03/02/19 Britany Coles MD [address] [place] [address] 140 [place] [phone] [email or web address] [email or web address] Surgery 03/02/19 Naun Hoang MD [address] [place] [address] Infectious Diseases 03/02/19 Agueda Ann MD 15 [facility] 201 [place] [address] [email or web address] Insurance Assigned Provider 07/02/23 04/02/24 Mely Bhatti, RN [address] [place] [address] [email or web address] iCMP Roller Engraver 05/12/23 06/09/23 documented as of this encounter Additional Source Comments The information contained in this document represents components of the legal health record. It is not the complete legal health record.[facility]
--- OUTSIDE RECORDS SUMMARY | 2024-11-27 06:32 | XMS_ITS | Clinical Summary ---
Author Organization 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 Active aspirin 81 MG EC tablet Take 81 mg by mouth daily. Active losartan (COZAAR) 25 MG tablet Take 1 tablet (25 mg total) by mouth daily. 30 tablet 5 3 Active Additional Information Patient taking differently: 50 mgOral Daily, Reported on 05/06/2023 metFORMIN (GLUCOPHAGE-XR) 500 MG 24 hr tablet [The details of the medication are not available because there are pending changes by a home health clinician.] 90 tablet 3 3 Active Additional Information Patient not taking.Informant: Self, Reported on 05/27/2023 pregabalin (LYRICA) 200 MG capsule [The details of the medication are not available because there are pending changes by a home health clinician.] 84 capsule 1 3 Active Additional Information Patient not taking.Reason: Patient Declined, Informant: Self, Reported on 05/27/2023 pregabalin (LYRICA) 150 MG capsule take 1 capsule by mouth every day 28 capsule 2 4 Active Additional Information Patient taking differently: 200 mgOral Daily,150mg in the am and 200mg at night, Reported on 05/09/2023 ezetimibe (ZETIA) 10 mg tabletIndication s:PVD (peripheral vascular disease) take 1 tablet by mouth every day 90 tablet 3 4 Active furosemide (LASIX) 40 MG tablet Take 40 mg by mouth daily. Active doxycycline hyclate (DORYX) 100 MG tablet Take 100 mg by mouth 2 (two) times a day. Active polyethylene glycol (MIRALAX) 17 gram/dose powder Take 17 g by mouth daily as needed for mild constipation. Active amLODIPine (NORVASC) 5 MG tablet Take 5 mg by mouth daily. 4 Active ascorbic acid, vitamin C, (VITAMIN C) 500 MG tablet Take 500 mg by mouth daily. 4 Active neomycin/bacitra negrito/polymyxinB (NEOSPORIN, QEA-APW-BWHSG, TP) Apply 1 Application topically 2 (two) times a day. 4 Active docusate (COLACE) 100 mg tablet Take 100 mg by mouth 2 (two) times a day as needed for mild constipation. 4 Active oxyCODONE 5 MG immediate release tablet Take 1 to 2 tabs (5 mg to 10 mg) by mouth daily as needed for pain 10 tablet 4 Active oxyCODONE 5 MG immediate release tablet Take 1 tablet (5 mg total) by mouth nightly at bedtime. 20 tablet 4 Active acetaminophen (TYLENOL) 650 MG CR tablet Take 1 tablet (650 mg total) by mouth every 8 (eight) hours as needed for pain (specific location in comments). 120 tablet 1 4 Active morphine (MS CONTIN) 15 MG ER tabletIndication s:Ischemic ulcer of leg,Other chronic pain Take 1 tablet (15 mg total) by mouth daily. 30 tablet 4 Active gabapentin (NEURONTIN) 400 MG capsuleIndicatio ns:Ischemic ulcer of leg,Other chronic pain Take 1 capsule (400 mg total) by mouth nightly at bedtime. 90 capsule 1 4 Active clopidogrel (PLAVIX) 75 mg tabletIndication s:Cerebrovascula r accident (CVA), unspecified mechanism take 1 tablet by mouth every day 90 tablet 1 4 Active levothyroxine (SYNTHROID, LEVOTHROID) 175 MCG tabletIndication s:Hyperthyroidis m take 1 tablet by mouth every day in the morning 90 tablet 4 Active atorvastatin (LIPITOR) 20 MG tabletIndication s:Coronary artery disease involving [place] heart without angina pectoris, unspecified vessel or lesion type Take 4 tablets (80 mg total) by mouth daily. 360 tablet 1 4 Active Active Problems Problem Noted Date Diagnosed Date Wound dehiscence 05/26/2023 Assessment & Plan (05/26/2023 9:21 AM EST): Reviewed the culture results and curbside ID, will switch to bactrim DS rather than keflex. Pt understands and agrees. Follow up with wound and surgery Other chronic pain 05/26/2023 Assessment & Plan (05/26/2023 9:23 AM EST): WE talked about switching to long acting pain medication once daily. She can add the high dose tylenol and continue to use the oxycodone for breakthrough. We reviewed the risks and benefits and side effects of this medication. Discussed the risks of addiction. Pt understands appropriate use Lower extremity edema 05/11/2023 Assessment & Plan (05/11/2023 9:45 AM EST): She has been unable to fill prescription for lasix since discharge from rehab. Discussed medication delivery services given how difficult it is for her to get to the pharmacy. Given information [facility] delivery. She will contact the office if she is unable to secure medication today Left leg weakness 12/24/2022 Impaired glucose tolerance 11/23/2022 Assessment & Plan (12/25/2022 12:19 PM EDT): -We will hold the patient's metformin -sliding scale for now -A1c is improved to 5.9% Assessment & Plan (11/24/2022 9:49 AM EDT): Prediabetic with last A1c of 6.1%. -We will give as needed lispro -Low carbohydrate diet Ischemic ulcer of leg 11/04/2022 Assessment & Plan (11/24/2022 9:49 AM EDT): As above. Concern for infection. We will be giving antibiotics and having wound care see her. -Continues on atorvastatin, Plavix, aspirin Assessment & Plan (11/15/2022 9:01 AM EDT): Wounds assessed and dressings changed today. Continue with home health nursing and PT as scheduled. She does have vascular intervention scheduled for next week. Discussed monitoring for signs of infection including increased pain or fever. Assessment & Plan (11/05/2022 1:44 PM EDT): Chronic resting leg pain that worsens with elevation, janeth toes and weak pedal pulses. 2 weeks prior to arrival she had achy legs and applied Arnica cream and then on awakening noted a spontaneous wound She does have some chronic wounds stable eschar on the medial ankle and toes that have been present for about a year Presentation concerning for PAD, AKOSUA was obtained and was less than 0.6 on each leg. IR performed arterial ultrasound which showed 1. ABIs: Abnormal global flow to both lower extremities. Moderate to marked decrease AKOSUA bilaterally. Decreased perfusion is at severity level which can create ischemia at rest and impair healing. 2. Arterial duplex ultrasound: Altered flow bilaterally, left more severely affected than right. SFA, popliteal and peroneal artery occlusions. Likely occlusion of left SFA. Flow documented within the popliteal artery. Wound nurse appreciated xray was unremarkable Cardiology consulted and patient was offered a peripheral intervention as an outpatient with Dr. Mendez which she would like to pursue MRI showed somewhat limited study due to prominent micro-metallic artifact presumably related to previous surgical hardware, without specific findings of fibular osteomyelitis identified. There is some edema within the extensor digitorum longus and tibialis posterior muscles which could reflect myositis, without definitive associated enhancement. Infectious diseases specialist felt that she did not have cellulitis nor was the MRI suggestive of osteomyelitis. Recommended vascular consultation and stopping cefazolin. PVD (peripheral vascular disease) 11/04/2022 Assessment & Plan (05/11/2023 9:42 AM EST): Continue wound care as scheduled and VNA services. Blood flow confirmed at vascular appointment s/p fem-pop bypass Assessment & Plan (12/26/2022 3:05 PM EDT): Multiple bilateral foot wounds, she recently had imaging of the left foot to rule out osteomyelitis, right foot wound is worsening with redness and pain, both limbs appear well perfused, we will order x-ray to rule out right foot wound osteomyelitis as the wound goes to bone. -Continue aspirin and Plavix as above, need to determine definitive length of Plavix therapy long-term -Doppler pulses -Wound care nurse appreciated -PT/OT Assessment & Plan (11/15/2022 9:04 AM EDT): Continue follow-up with cardiology as scheduled. Discussed supportive measures and continuing medication as prescribed Assessment & Plan (11/05/2022 1:45 PM EDT): h/o CEA and one carotid stent. + family hx of vascular disease including lower ext ischemia (brother) Continue statin, asa, plavix Patient wishes to pursue follow-up with [facility]- Dr Diaz is aware and arranging Cellulitis of left lower extremity 11/03/2022 Assessment & Plan (11/24/2022 9:48 AM EDT): We will give empiric antibiotics. She just had an MRI 2 weeks ago. Wound appears worse than photographs 2 weeks ago, currently foul smelling with purulence and only trace surrounding erythema. She had an interval arterial stenting. -Continue IV vancomycin, Zosyn- day 2 -Probiotic -Wound care nurse appreciated -Tylenol, oxycodone, morphine for pain Assessment & Plan (11/03/2022 4:37 PM EDT): Marixa presents with rapid onset of erythema, edema, open wound with ulceration over the lower extremity in the setting of dull pain x 1 week. She has a history of 3 ankle surgeries and does have hardware present in that ankle. Of note the ulceration is in line with the surgical scar. I am quite concerned about osteomyelitis and I definitely think this patient needs rapid imaging and needs to be assessed in the emergency room I have explained to her that osteomyelitis needs to be treated with IV antibiotics and that there is a necessity for urgent evaluation because of the rapidity with which this can progress. Patient understands and she is going to head directly to the ER Cardiac murmur, unspecified 01/21/2021 Assessment & Plan (01/21/2021 12:36 PM EDT): Most concerning for aortic stenosis, was noticed by my colleague about a month ago, no follow-up since then. She denies fatigue, shortness of breath. No signs of volume overload or cardiac failure. I would like her to get an echo, and follow-up with her own landscape horticulture instructor who is at [place]. Acquired hypothyroidism 09/04/2020 Assessment & Plan (12/26/2022 3:00 PM EDT): TSH low, T4 within normal limits We will hold levothyroxine, she should follow-up with her PCP in 6 weeks for recheck Assessment & Plan (09/04/2020 1:41 PM EDT): Weight gain and constipation, unexplained seem very consistent with thyroid, but not consistent with thyroid labs. I would like for her to have eval with endo for thyroid disorder and assistance with med management. Weight gain 05/17/2019 Assessment & Plan (07/22/2021 3:28 PM EDT): I have reviewed results of patient's most recent labs, to the best my ability, however these were ordered by endocrinology and really she needs to follow-up with them. I would recommend the patient try to be seen sooner than scheduled follow- up. We briefly discussed checking T3 and leptin levels and patient is interested in doing that. Assessment & Plan (01/21/2021 12:35 PM EDT): Picture weight gain complicated by her recent surgical intervention, change in ability to exercise, status post gastric sleeve status, age. She recognizes that her exercise is decreased but states she only eats about 800 ronny a day, to me this sounds like to little and she is established [place] weight management so I like her to see the animal husbandry manager there she understands and agrees this plan Assessment & Plan (05/17/2019 12:35 PM EST): She is working out, tracking her caloric intake and sticking to nutrition plan although she is under eating. No clear etiology for her weight gain. Start taking levothyroxine separately from the other medications. Check labs today. Make follow-up with animal husbandry manager CAD (coronary artery disease) 03/02/2019 Overview (03/02/2019): h/o stent Assessment & Plan (12/26/2022 3:02 PM EDT): No active cp or acute concern -Continue overcoiler -Continue aspirin, atorvastatin, Plavix, and Zetia Is a question of how long she has been on her Plavix she thinks this has been about 10 years, long-term DAPT is usually a lot shorter, she should follow-up with her PCP and likely discontinue Plavix if there is no good indication. Assessment & Plan (11/05/2022 9:17 AM EDT): Continue outpatient medication regimen-aspirin Plavix Zetia Lipitor Hypertension 03/02/2019 Assessment & Plan (12/25/2022 12:18 PM EDT): - Resume losartan -Allowed for 24 hours of permissive hypertension -Low-sodium diet Assessment & Plan (11/24/2022 9:51 AM EDT): Patient was recently diagnosed with hypertension, currently not well controlled with systolic blood pressure in the 150s to 160s. Patient was only recently started on losartan. -Continue losartan from home -Low-sodium diet -Monitor; pain and infection likely elevating blood pressure Assessment & Plan (11/05/2022 1:44 PM EDT): Blood pressures overnight were relatively high, not on any antihypertensive as an outpatient. Could be secondary to pain. I have referred the patient to her outpatient provider for follow-up as she may need to restart an antihypertensive Assessment & Plan (07/22/2021 8:25 AM EDT): Well controlled on current medication. Myasthenia gravis 03/02/2019 Assessment & Plan (05/26/2023 9:25 AM EST): Longstanding myasthenia gravis now complicated by surgical wound dehiscence, neuropathy, stenosis, weakness and chronic pain. Certainly would benefit from SYSTEM ENGINEER services and I have discussed with pt how to initiate. Assessment & Plan (01/03/2023 10:00 AM EDT): I think and patient agrees that her left leg weakness could have been due to her myasthenia rather than a TIA. I think at this point she really does need to follow-up with neurology and I sent to message to her neurologist about getting closer follow-up or whether there is something he would like me to do with management in the meantime. I really do not think that there is any additional imaging at this point that would make sense for patient to have. Assessment & Plan (01/25/2022 9:37 AM EDT): Fairly marked lower body weakness which she has not had a lot of success with improving on during this time. Combined with the weight gain I think she certainly would benefit from some physical therapy just to really improve her strength and see if we can reduce the frequency of falls. Assessment & Plan (07/22/2021 8:25 AM EDT): Has not been seen in 2 years by neurology. Her neurologist left (Dr Flo batista). Will see if pt can establish with someone new at [facility]. Assessment & Plan (01/21/2021 12:34 PM EDT): Doing well, has some limitations in movement. Continues to follow with neurology. Peripheral neuropathy 03/02/2019 Assessment & Plan (01/03/2023 9:59 AM EDT): Debilitating pain from peripheral neuropathy. She also has peripheral vascular disease which is decreased the circulation overall. Certainly, her pain has greatly increased over the last 3 to 4 months. At this point gabapentin is not controlling her well, I do not want her to be using the Tylenol with codeine at night and I certainly do not want her to be using alcohol to control her pain. We discussed switching over to Lyrica which she has never been on. We will start her on a twice daily low-dose and stop the gabapentin. Patient understands and agrees this plan of care. Assessment & Plan (11/15/2022 9:02 AM EDT): Increase gabapentin to 400 mg nightly. Assessment & Plan (01/25/2022 9:38 AM EDT): Increase gabapentin 200 mg nightly. Carotid stenosis 04/23/2016 Assessment & Plan (01/21/2021 8:37 AM EDT): Had endarecetomy on left side in 10/2020 ( stented on right side) Doing well now, follow up with Dr Berger, next month, repeat carotid ultrasound Hypothyroidism due to acquired atrophy of thyroi d 03/14/2015 History of endometrial cancer 03/19/2014 Overview (03/02/2019): Endometroid type 1, grade 1, 10% myometrial invasion. No aduvant therapy needed Plan: - q4mo exams x 2 years including RV exam and lymph node exams - q6mo exams x 3 years - routine mammo and colonoscopies Assessment & Plan (10/21/2019 9:38 PM EDT): Normal pelvic exam today. No concerns. Uncoded Myelopathy cervical icd 721.0 05/03/2000 Overview (05/18/2014): Myelopathy cervical icd 721.0 ; *See attached note in [facility] Spinal stenosis 04/20/2000 Overview (05/18/2014): Spinal stenosis cervical icd 7230; *See attached note in [facility] Cerebrovascular accident 01/10/1996 Overview (05/18/2014): stroke Assessment & Plan (12/26/2022 3:04 PM EDT): history of CVA and carotid stent Left-sided leg weakness has improved CT CTA head and neck negative for acute intracranial findings, showed: mild multifocal stenosis of the petrous cavernous paraclinoid segments of the bilateral internal carotid artery secondary to arthrosclerosis, stent in distal right common artery and proximal right internal with severe stenosis of the right ICA secondary to extrinsic compression -MRI brain and MRA brain and neck is negative for any acute infarct, hemorrhage, mass or hydrocephalus. Noted to have unchanged encephalomalacia of right occipital lobe. Evaluation of in-stent stenosis not possible on MRA, mid to distal right ICA appears patent with antegrade flow observed in the intracranial MRA. Severe stenosis of the proximal left internal carotid artery, multifocal mild stenosis of bilateral vertebral, MCA and AIDAN arteries. Multifocal degenerative changes of the cervical spine causing moderate spinal stenosis at C4-C5 and C5-C6, bilateral severe foraminal narrowing at C4-C5, C5-C6 and C6-C7. -Continue with dual antiplatelet therapy -Continue statin, zetia; LDL at goal of less than 70, currently 35 -PT/OT -TTE pending -Carotid ultrasound pending -Left venous duplex pending unremarkable -Telemetry monitoring with event monitor on discharge Assessment & Plan (01/21/2021 12:33 PM EDT): Has some residual defect, recently had endarterectomy, following up with vascular. Continues on Plavix, blood pressure well controlled. Assessment & Plan (09/12/2019 9:21 AM EDT): Complication of CVA and Myasthenia Gravis is significant weakness of the lower body, does walk every day but needs the walker for stability. Assessment & Plan (03/02/2019 12:16 PM EST): Has lost peripheral vision and cannot drive, uses a front wheel walker to ambulate although this dis-mobility is secondary to myasthenia gravis and possibly CVA. Would benefit from physical therapy with proprioceptive sensory motor retraining for balance and gait. She will be going to [facility] in [place] for this. IgG monoclonal gammopathy Assessment & Plan (03/02/2019 12:15 PM EST): Patient denies ever seeing hematology, has never heard this diagnosis and does not think that she has this. As I do not have records it is difficult for me to understand where this came from. I would like to review her [facility] records and if necessary we will do work-up to confirm or disprove gammopathy. Resolved Problems Problem Noted Date Diagnosed Date Resolved Date Impacted cerumen of right ear 10/06/2021 01/25/2022 Assessment & Plan (10/13/2021 10:50 AM EDT): Patient seen on 10/06 with an attempted ear lavage but was unsuccessful. She returns today after using debrox 3-4 times daily. Ear lavage performed in the office successful with large amount of cerumen removed. Patient states immediate relief. Decreased dizziness and balance improved with the exception of her Myasthenia gravis (she has an appt for Neuro muscular [place] [facility] No further pain. F/u as needed Assessment & Plan (10/06/2021 10:56 AM EDT): Right cerumen impaction. There was an attempt with ear lavage in the office which was unsuccessful. -place on debrox with script sent to pharmacy for 5 drops in right ear -she will need to return for f/u in 5 days Cellulitis of left upper extremity 09/04/2020 01/25/2022 Assessment & Plan (09/04/2020 1:39 PM EDT): My concern is for septic arthritis/ osteo given the difficulty in movement, the overlying heat and redness and extensive swelling, There is not specific bursal swelling and nothing I could tap today. Of coursem, underlying ligament or bone damage possible, but seems less likely with no trauamtic event. Pt is afebrile and does not appear septic. Get imaging today. Start abx to cover for strep/ staph. Anti inflammatory. Follow closely Tear of ulnar collateral lig ament of elbow, initial encounter 09/04/2020 01/25/2022 Assessment & Plan (09/04/2020 1:40 PM EDT): Addendum: After review on day of X ray, no bony infection seen but highly suspicious for ligament tear. As I cannot rule out infection, will have her continue with abx plan, but will also have her make urgent appt to see ortho for eval. Infection of right hand 03/02/201912/28 Assessment & Plan (03/02/2019 12:14 PM EST): Patient frustrated about lack of progress with her hand. She has an appointment with infectious disease at the beginning of March and hopefully at that time will have more information about next steps in treatment. Immunizations Immunization Administration Dates Next Due COVID-19 (Pre-01/17) Pfizer Vaccine, mRNA, PF 07/02/2020,06/07/2020 INFLUENZA, SPLIT VIRUS, TRIV ALENT W/ PRESERVATIVE IM 01/07/2014 Influenza High-Dose Quadriva lent Preservative Free IM 12/27/2022,12/09/2021 Influenza Quadrivalent Adjuv anted Preservative Free IM 12/14/2020 Influenza Quadrivalent MDCK Preservative Free IM 12/06/2018,12/23/2017,01/24/2017 Influenza Quadrivalent Preservative Free IM 05/2019 Influenza Quadrivalent w/ Preservative IM 2015 Pneumococcal conjugate PCV20 01/25/2022 Pneumococcal polysaccharide PPSV23 09/30/2016, Tdap 12/26/2017,11/15/2008 Zoster recombinant 02/27/2019,11/24/2018 Family History Medical History Relation Comments Kidney failure Mother Relation Status Comments Mother Social History Tobacco Use Types Packs/Day Years Used Date Smoking Tobacco: Never Smokeless Tobacco: Never Tobacco Cessation:Counseling Given: Not Answered Alcohol Use Standard Drinks/Week Comments Not Currently 2 (1 standard drink = 0.6 oz pur e alcohol) Home Health Assessment: Transportation Answer Date Recorded Lack of Transportation (Medical) No 05/07/2023 Lack of Transportation (Non-Medical) No 05/07/2023 Patient Unable or Declines to Respond No 05/07/2023 Child or Family Care Answer Date Record ed Do you have problems with on e of the following making it difficult for you to work, study, or receive health care? No 05/04/2023 Education Answer Date Recorded Are you interested in more education? Not on maria fernanda e 02/07/2024 Are you concerned about learning? Not on file 02/07/2024 No 02/07/2024 No 02/07/2024 Food Answer Date Recorded Within the past 6 months we worried whether our food would run out before we got money to buy more. Never True 05/04/2023 Food didn't last Not on file 05/04/2023 Residential Stability Answer Date Recor ded What is your housing situation today? I have nazario sing 05/04/2023 How many times have you move d in the past 12 months? Zero (I did not move) 05/04/2023 Paying for Meds Answer Date Recorded Do you have trouble paying for medicines? No 05/04/2023 Paying Utility Bills Answer Date Record ed Do you have trouble paying your heating or elect ricity bill? No 01/25/2022 Transportation Answer Date Recorded Has the lack of transportati on kept you from medical appointments or from getting medications? No 05/04/2023 Unemployment Answer Date Recorded Are you currently unemployed or working on a part-time or temporary basis, and looking for work? No 01/25/2022 Digital Access Answer Date Recorded No 05/04/2023 Yes 05/04/2023 Do you have reliable internet access at home? Ye s 05/04/2023 Device with a working camera? Not on file Intimate Partner Violence Answer Date R ecorded Are you denied basic needs s uch as food, clothing, or medical care? No 05/23/2023 In the past 12 months have y ou been in a relationship with a person who hurts, threatens, or tries to control you? No 05/23/2023 Are you denied basic needs s uch as food, clothing, or medical care? No 05/23/2023 In the past 12 months have y ou been in a relationship with a person who hurts, threatens, or tries to control you? No 05/23/2023 Comments No Sex and Gender Information Value Date Recorded Sex Assigned at Female 11/03/2022 5:37 PM EDT Legal Sex Female 7:51 PM EST Gender Identity Female 11/03/2022 5:37 PM EDT Sexual Orientation Not on file Last Filed Vital Signs Vital Sign Reading Time Taken Comments Blood Pressure 128/76 05/29/2023 10:44 AM EST Pulse 72 05/29/2023 10:44 AM EST Temperature 36.8 C (98.2 F) 05/29/2023 10:44 AM EST Respiratory Rate 20 05/29/2023 10:44 AM EST Oxygen Saturation 98% 05/29/2023 10:44 AM EST Inhaled Oxygen Concentration - - Weight 90.7 kg (200 lb) 05/25/2023 4:45 PM EST Height 167.6 cm (5' 6 ) 05/25/2023 4:45 PM EST Body Mass Index 32.28 05/25/2023 4:45 PM EST Plan of Treatment Health Maintenance Due Date Last Done Comments COLOGUARD 07/23/2000 FIT TEST 07/23/2000 FOBT 07/23/2000 SIGMOIDOSCOPY 07/23/2000 VIRTUAL COLONOSCOPY 07/23/2000 OSTEOPOROSIS SCREENING INITIAL (ONE-TIME) 07/23/2020 DEPRESSION SCREENING 01/20/2022 01/20/2021 COVID-19 VACCINE ( season) 2023 02/06/2023, 12/31/2021, 08/03/2021, Additional history exists BLOOD PRESSURE 11/29/2023 05/29/2023 LIPID PANEL 12/26/2023 12/25/2022, 0803/2022, 01/27/2022, Additional history exists TSH LEVEL 01/14/2024 01/13/2023, 11/28, 08/10/2022, Additional history exists CREATININE LEVEL 05/23/2024 05/23/2023, 06/2023, 02/02/2023, Additional history exists POTASSIUM LEVEL 05/23/2024 05/23/2023, 1004/2022, 12/25/2022, Additional history exists MAMMOGRAM 07/07/2024 07/07/2022, 0408/2021, 06/30/2020, Additional history exists INFLUENZA VACCINE (#1) 2024 , 12/09/2021, 12/09/2021, Additional history exists SCREENING FOR DIABETES 05/23/2026 05/23/2023, 2022 Adult Td,Tdap Booster 12/27/2027 12/26/2017, 009 RSV VACCINE (1 - 1-dose 75+ series) 07/23/2030 COLONOSCOPY 11/09/2033 11/10/2023, 07/31/2021 COLORECTAL CANCER SCREENING 11/09/2033 HEPATITIS C SCREENING Completed 12/09/1995 ZOSTER VACCINES Completed 02/27/2019, 11/24/2018 PNEUMOCOCCAL VACCINES (50+ years) Completed 01/25/2022, 09/30/2016, 12/13/2013 SMOKING STATUS SCREENING (Once After 26 Yrs) Completed 05/25/2023 HEPATITIS A VACCINES Aged Out No long er eligible based on patient's age to complete this topic HIB VACCINES Aged Out No longer eligi ble based on patient's age to complete this topic MENINGOCOCCAL VACCINES (ACWY) Aged Out No longer eligible based on patient's age to complete this topic MENINGOCOCCAL VACCINES (B) Aged Out N o longer eligible based on patient's age to complete this topic Medical Devices Implanted Type Area Shift Mgr Device Identifier Shelf Expiration Date Model / Serial / Lot Stent Supera 6fr 5.5mm 120mm 120cm .014in Otw Vascular Peripheral Nitinol Self Expanding Closed End Braided - [id number] Implanted:Qty: 1 on 11/18/2022 by David Mendez MD at [facility] Stent [employer] 04/27/2024 [id number] / / [id number] Cardiac Stent Neck Hardware Procedures Procedure Name Priority Date/Time Associated Diagnosis Comments COLONOSCOPY FOR RESULT ENTRY ONLY Routine 11/10/2023 10:14 AM EDT BASIC METABOLIC PANEL STAT 05/23/2023 4:12 PM EST TSH WITH REFLEX Routine 01/13/2023 7:58 AM EDT Hyperthyroidism LIPID PANEL Routine 12/25/2022 5:22 AM EDT HM MAMMOGRAPHY Routine 07/07/2022 from Last 3 Months or Most Recently Relevant to Health Maintenance Results * COLONOSCOPY FOR RESULT ENTRY ONLY (11/10/2023 10:14 AM EDT) Historical Provider HEALTH MAINTENANCE Edited Result - Final * (ABNORMAL) Basic metabolic panel (05/23/2023 4:12 PM EST) SODIUM 137 133 - 146 mmol/L [facility] CHLORIDE 101 96 - 108 mmol/L [facility] POTASSIUM 4.1 3.3 - 5.1 mmol/L [facility] CO2 24 21 - 35 mmol/L [facility] BUN 27(H) 6 - 19 mg/dL [facility] CREATININE 0.50 0.5 - 1.5 mg/dL [facility] GLUCOSE 103(H) 70 - 99 mg/dL [facility] CALCIUM 9.0 8.4 - 10.3 mg/dL [facility] EGFR 103 >59 mL/min/1.7 3m2 [facility] Comment:Estimated glomerular filtration rate calculated using the CKD-EPI refit equation. ANION GAP 16 10 - 20 mmol/L [facility] Blood 05/23/2023 4:12 PM EST 05/23/2023 4:32 PM EST Mely Padron PA-C LAB BLOOD ORDERABLES Final R esult [address] [address] * (ABNORMAL) TSH with reflex (01/13/2023 7:58 AM EDT) TSH 0.03(L) 0.27 - 4.20 uIU/mL [facility] Blood 01/13/2023 7:58 AM EDT 01/13/2023 8:03 AM EDT Agueda Ann MD LAB BLOOD ORDERABLES Final Resul t Performing Organization Address City/[facility] [address]/ZIP Co de Phone Number [address] [address] * (ABNORMAL) Lipid panel (12/25/2022 5:22 AM EDT) HDL 46 mg/dL [facility] Comment: Interpretation <40 mg/dL: Low HDL cholesterol (major risk factor for CHD) Greater than or equal to 60 mg/dL: High HDL cholesterol ( negative risk factor for CHD) HDL - cholesterol is affected by a number of factors, e.g. smoking, excerise, hormones, sex and age. CHOLESTEROL 98 0 - 240 mg/dL [facility] TRIGLYCERIDES 86 30 - 160 mg/dL [facility] LDL 35(L) 50 - 129 mg/dL [facility] Comment: LDL levels in terms of risk for coronary heart disease: <100 mg/dL: Optimal 100-129 mg/dL: Near or above optimal 130-159 mg/dL: Borderline high 160-189 mg/dL: High >190 mg/dL: Very High CARDIAC RISK RATIO 2.1(L) 3.3 - 4.4 [facility] Blood 12/25/2022 5:22 AM EDT 12/25/2022 6:22 AM EDT us Kayley Ribera NP LAB BLOOD ORDERABLES Fi nal Result [address] [address] * MAMMOGRAPHY FOR RESULT ENTRY ONLY (07/07/2022) us Agueda Ann MD HEALTH MAINTENANCE Edited Result - Final from Last 3 Months or Most Recently Relevant to Health Maintenance Insurance MEDICARE PART A & B Member Subscriber Plan / Payer (Ef fective 2017-Present) Name:Marixa Chan Member ID:[id number] Relation to Subscriber:Self Name:Marixa Chan Subscriber ID:[id number] Payer ID:[id number] Group ID:Not on file Type:Medicare Address: [employer] [address] [place] [phone] [place] B Member Subscriber Plan / Payer ( fective 2017-Present) Name:Marixa Chan Member ID:[id number] Relation to Subscriber:Self Name:Marixa Chan Subscriber ID:[id number] Payer ID:[id number] Group ID:Not on file Type:Medicare Address: [employer] [address] [place], [place] [phone] [facility] [place] [facility] B Member Subscriber Plan / Payer (Ef fective 2017-Present) Name:Marixa Chan Member ID:[id number] Relation to Subscriber:Self Name:Marixa Chan Subscriber ID:[id number] Payer ID:[id number] Group ID:Not on file Type:Medicare Address: [employer] [address] [place] [address] [place] A [place] B Member Subscriber Plan / Payer ( fective 2017-Present) Name:Marixa Chan Member ID:[id number] Relation to Subscriber:Self Name:Marixa Chan Subscriber ID:[id number] Payer ID:[id number] Group ID:Not on file Type:Medicare Address: [employer] [address] [place] [phone] [facility] MEDICARE PART A & B Member Subscriber Plan / Payer (Ef fective 2017-Present) Name:Marixa Chan Member ID:[id number] Relation to Subscriber:Self Name:Marixa Chan Subscriber ID:[id number] Payer ID:[id number] Group ID:Not on file Type:Medicare Address: [employer] [address] [place], [place] [id number] [place] A & B Member Subscriber Plan / Payer (Ef fective 2017-Present) Name:Marixa Chan Mehdi Member ID:[id number] Relation to Subscriber:Self Name:Marixa Chan Subscriber ID:[id number] Payer ID:[id number] Group ID:Not on file Type:Medicare Address: [employer] [address] [place] [phone] [place] PART A & B [facility] Advance Directives For more information, please contact: [phone] (9AM - 5PM [facility], Tuesday-Tuesday) Documents on File Type Date Recorded Patient Vocational Examiner Expl anation Healthcare Proxy 11/08/2022 6:36 PM MOLST 01/25/2020 7:43 AM * Full Code (Latest Code Status on File) Date Activated Date Inactivated Comments 12/24/2022 6:51 PM Question Answer Comments Code Status Confirmed With: Patient * Full Code Date Activated Date Inactivated Comments 11/23/2022 7:58 PM 12/24/2022 6:51 PM Question Answer Comments Code Status Confirmed With: Patient * Full Code Date Activated Date Inactivated Comments 11/04/2022 12:50 AM 11/23/2022 7:58 PM Question Answer Comments Code Status Confirmed With: Patient Care Teams Marine Diesel Mechanic Relationship Specialty Start Date End Date Agueda Ann MD [address] [place] [address] PCP - General Family Medicine 02/01/19 Andie Rossi MD [address] [place] [address] Neurology 03/02/19 West Doll MD [address] [place] [address] 104 [place] [address] Cardiology 03/02/19 Britany Coles MD [address] [place] [address] 140 [place] [address] [email or web address] 03/02/19 Naun Hoang MD [address] [address] Infectious Diseases 03/02/19 Additional Source Comments The information contained in this document represents components of the legal health record. It is not the complete legal health record.[facility]
--- OUTSIDE RECORDS SUMMARY | 2024-11-27 06:32 | XMS_ITS | Encounter Summary ---
Author Organization [facility] Address [address] [place] [address] Phone Care Team Providers Care Packing Tractor Machine Operator Name Role Phone Agueda Ann MD Primary Care Provider Andie Rossi MD Unavailable West Doll MD Unavailable Britany Coles MD Unavailable [phone] Naun Hoang MD Unavailable + Agueda Ann MD Unavailable Mely Bhatti RN Unavailable [phone] Encounter Details Date Type Department Care Team (Late st Contact Info) Description 12/24/2022 Procedure Pass [facility], [facility] 30 [place] [address] Social History Tobacco Use Types Packs/Day Years [...] high school, GED, job training, learning the Jordanian language, technical skills, or developing parenting skills)? [...] 9:29 AM ALEKT Natalya Delgadillo, RN * [place] Suicide Severity Rating Scale (Screener/Recent Self-Report) Question [...] documented as of this encounter Care Teams Packing Tractor Machine Operator Relationship Specialty Start Date End Date Agueda Ann MD [address] [address] [email or web address] PCP - General Family Medicine 02/01/19 Andie Rossi MD [address] [place] [address] Neurology 03/02/19 West Doll MD [address] [place] [address] 104 [place] [address] Cardiology 03/02/19 Britany Coles MD [address] [place] [address] 140 [place] [phone] [email or web address] [email or web address] 03/02/19 Naun Hoang MD [address] [place] [address] Infectious Diseases 03/02/19 Agueda Ann MD 15 [facility] 201 [place] [address] Insurance Assigned Provider 07/02/23 04/02/24 Mely Bhatti, RN [address] [place] [address] [email or web address] [employer] Merchandise Executive 05/12/23 06/09/23 documented as of this encounter Additional Source Comments The information contained in this document represents components of the legal health record. It is not the complete legal health record.[facility]
--- OUTSIDE RECORDS SUMMARY | 2024-11-27 06:32 | XMS_ITS | Clinical Summary ---
Author Organization [employer] Address [address] [facility] 7t [place] [address] Care Team Providers Care Saw Man Name Role Phone Unavailable Primary Care Provider [...] Most Recently Relevant to Health Maintenance Insurance [facility] MEDICAID STAND ADULT
--- OUTSIDE RECORDS SUMMARY | 2024-11-27 06:32 | XMS_ITS | Encounter Summary ---
Author Organization [facility] Address [address] [place] [address] Phone Care Team Providers Care Automotive Specialty Technician Name Role Phone Agueda Ann MD Primary Care Provider [phone] Andie Rossi MD Unavailable [phone] West Doll MD Unavailable [phone] Britany Coles MD Unavailable [phone] Naun Hoang MD Unavailable + Agueda Ann MD Unavailable Latosha Garcia OT Unavailable [phone] Latosha Garcia OT Unavailable [phone] Mely Bhatti RN Unavailable [phone] Encounter Details Date Type Department Care Team (Late st Contact Info) Description 10/04/2019 Ancillary Orders [facility],Outside Imaging 30 [place] [address] System, Provider Not In, [facility] [address] [address] Social History Tobacco Use Types Packs/Day Years Used Date Smoking Tobacco: Never Smokeless Tobacco: Never Alcohol Use Standard Drinks/Week Comments Yes 0 (1 standard drink = 0.6 oz pur e alcohol) Comments No Sex and Gender Information Value Date Recorded Sex Assigned at Female 11/03/2022 5:37 PM EDT Legal Sex Female 7:51 PM EST Gender Identity Female 11/03/2022 5:37 PM EDT Sexual Orientation Not on file documented as of this encounter Plan of Treatment Not on file documented as of this encounter Results * MRI Brain Outside (No Interpretation) (09/17/2019 12:00 AM EDT) Narrative SYSTEMGENERATED, DOCUMENTATION - 10/04/2019 4:57 PM EDT This study is for PACS storage only and not for interpretation. us Provider Not In System PhD IMG OUTSIDE IMAGING W /OUT INTERPRETATION Final Result documented in this encounter Visit Diagnoses Not on filedocumented in this encounter Additional Health Concerns Infection Onset Date Last Indicated Resolved Time CoV-Risk 03/12/2020 03/12/2020 03/26/2020 1:24 AM EST Assessment Noted Time PHQ-2 Depression Total Score: 0 03/02/20 10:33 AM EST documented as of this encounter Care Teams Automotive Specialty Technician Relationship Specialty Start Date End Date Agueda Ann MD [address] [address] PCP - General Family Medicine 02/01/19 Andie Rossi MD 48 [place] [address] Neurology 03/02/19 West Doll MD [address] [place] [address] 104 [place] [address] Cardiology 03/02/19 Britany Coles MD [address] [place] [address] 140 [place] [phone] [email or web address] 03/02/19 Naun Hoang MD [address] [address] Infectious Diseases 03/02/19 Agueda Ann MD [address] [address] Insurance Assigned Provider 07/02/23 04/02/24 Latosha Garcia, OT 30 [place] [address] Transitions Edging Machine OperatorMirror Fabrication Supervisor Therapy 11/05/22 11/07/22 Latosha Garcia, OT 30 [place] [address] Transitions Edging Machine OperatorMirror Fabrication Supervisor Therapy 11/24/22 11/25/22 Mely Bhatti, NICOLE [address] [place] [address] [employer] Edging Machine Operator 05/12/23 06/09/23 documented as of this encounter Additional Source Comments The information contained in this document represents components of the legal health record. It is not the complete legal health record.[facility]
--- OUTSIDE RECORDS SUMMARY | 2024-11-27 06:32 | XMS_ITS | Encounter Summary ---
Author Organization [facility] Address [address] [place] [address] Phone Care Team Providers Care Outreach Worker Name Role Phone Agueda Ann MD Primary Care Provider Andie Rossi MD Unavailable [phone] West Doll MD Unavailable [phone] Britany Coles MD Unavailable Naun Hoang MD Unavailable + Agueda Ann MD Unavailable Latosha Garcia OT Unavailable Mely Bhatti RN Unavailable Encounter Details Date Type Department Care Team (Late st Contact Info) Description 11/18/2022 Procedure Pass [facility] 30 [place] [address] Social History Tobacco Use Types Packs/Day Years [...] high school, GED, job training, learning the Russian language, technical skills, or developing parenting skills)? [...] documented as of this encounter Care Teams Outreach Worker Relationship Specialty Start Date End Date Agueda Ann MD [address] [place] [address] PCP - General Family Medicine 11/7/19 Andie Rossi MD 48 [place] [address] Neurology 03/02/19 West Doll MD [address] [place] [address] 104 [place] [address] Cardiology 03/02/19 Britany Coles MD 175 [facility] 140 [place] [address] [email or web address] Surgery 03/02/19 Naun Hoang MD [address] [address] Infectious Diseases 03/02/19 Agueda Ann MD [address] [address] Insurance Assigned Provider 07/02/23 04/02/24 Latosha Garcia, OT 30 [place] [address] Transitions Cnc Lathe MachinistRamp Service Employee Therapy 11/24/22 11/25/22 Mely Bhatti, NICOLE 10 [place] [address] [employer] Cnc Lathe Machinist 05/12/23 06/09/23 documented as of this encounter Additional Source Comments The information contained in this document represents components of the legal health record. It is not the complete legal health record.[facility]
--- OUTSIDE RECORDS SUMMARY | 2024-11-27 06:32 | XMS_ITS | Encounter Summary ---
Author Organization [facility] Address [address] [place] [address] Phone Care Team Providers Care Felt Checker Name Role Phone Agueda Ann MD Primary Care Provider Andie Rossi MD Unavailable [phone] West Doll MD Unavailable [phone] Britany Coles MD Unavailable [phone] Naun Hoang MD Unavailable + Agueda Ann MD Unavailable Mely Bhatti RN Unavailable Encounter Details Date Type Department Care Team (Late st Contact Info) Description 12/24/2022 Procedure Pass [facility], [facility] 30 [place] [address] Social History Tobacco Use Types Packs/Day Years [...] high school, GED, job training, learning the British language, technical skills, or developing parenting skills)? [...] 9:29 AM ALEKT Natalya Delgadillo, RN * [place] Suicide Severity Rating Scale (Screener/Recent Self-Report) Question [...] documented as of this encounter Care Teams Felt Checker Relationship Specialty Start Date End Date Agueda Ann MD [address] [address] [email or web address] PCP - General Family Medicine 02/01/19 Andie Rossi MD [address] [place] [address] Neurology 03/02/19 West Doll MD [address] [place] [address] 104 [place] [address] Cardiology 03/02/19 Britany Coles MD [address] [place] [address] 140 [place] [phone] [email or web address] [email or web address] 03/02/19 Naun Hoang MD [address] [place] [address] Infectious Diseases 03/02/19 Agueda Ann MD 15 [facility] 201 [place] [address] Insurance Assigned Provider 07/02/23 04/02/24 Mely Bhatti, RN [address] [place] [address] [email or web address] i[employer] Spa Associate 05/12/23 06/09/23 documented as of this encounter Additional Source Comments The information contained in this document represents components of the legal health record. It is not the complete legal health record.[facility]
--- OUTSIDE RECORDS SUMMARY | 2024-11-27 06:32 | XMS_ITS | Patient Health Record ---
Author Organization [address] [place] [address] [facility] Address [address] [id number] Care Team Providers Care Television Mechanic Name Role Phone BARTOLO Dunbar Supriya [phone] Reason For Referral No Information Plan Of Treatment No Information
--- OUTSIDE RECORDS SUMMARY | 2024-11-27 06:32 | XMS_ITS | Encounter Summary ---
Author Organization [employer] Address [address] [facility] [address] 7t [place] [address] Care Team Providers Care Flare Maker Name Role Phone Unavailable Primary Care Provider Unavailabl e Reason for Visit * Reason Onset Date Comments medical clearance 05/27/2022 Encounter Details Date Type Department Care Team (Late st Contact Info) Description 05/27/[address] [facility] ADULT DENTAL [address] [place] [address] Davonte Cunningham DDS medical clearance Social History [...] was for medical clearance. Pls re send [phone] * Telephone Encounter - Lucina Leigh - [...] was for medical clearance. Pls re send [phone] documented in this encounter Plan of Treatment Not on file documented as of this encounter Visit Diagnoses Not on filedocumented in this encounter
--- OUTSIDE RECORDS SUMMARY | 2024-11-27 06:32 | XMS_ITS | Encounter Summary ---
Author Organization [employer] Address [address] [facility] 7t [place] [address] Care Team Providers Care Reclamation Supervisor Name Role Phone Unavailable Primary Care Provider Unavailabl e Encounter Details Date Type Department Care Team (Latest Contact Info) Description 06/29/2021 Abstract [facility] CONVERSIONS Dental, Provider, DDS Social History [...]
[2024-11-27 06:52] LABS: Anion Gap 13 (12-20); Blood Urea Nitrogen 23 mg/dL (9-16); Calcium 8.3 mg/dL (8.4-10.2); Carbon Dioxide 23 mmol/L (22-29); Chloride 107 mmol/L (96-108); Estimated Glomerular Filt Rate 45; Potassium 4.5 mmol/L (3.3-5.1); Sodium 138 mmol/L (135-145)
== END 2024-11-27 06:25 | disposition home or self-care (01) ==
LOC: HO.MMNH3L 06:24
PROVIDERS: Visit Provider Student in an Organized Health Care Education/Training Program
DX: I69.398 Other sequelae of cerebral infarction (principal); I25.9 Chronic ischemic heart disease, unspecified; E03.9 Hypothyroidism, unspecified; Z89.611 Acquired absence of right leg above knee
CPT/HCPCS: 36415; 80048; 85025

== ENCOUNTER 2024-12-03 06:06 | Outpatient (REF) | payer MEDICARE, MEDICAID, SELFPAY ==
[2024-12-03 05:55] LABS: MANUAL DIFF FLAG NO
--- OUTSIDE RECORDS SUMMARY | 2024-12-03 06:09 | XMS_ITS | Clinical Summary ---
Author Organization [address] Address [address] [place] [phone] Care Team Providers Care Curing Pickling Packer Name Role Phone Unavailable Primary Care Provider [...] density) 07/23/2020 Covid-19 vaccine series ( - season) 2024 Influenza vaccine 11/26/2024 RSV Immunization (1 - 1-dose 75+ series) 07/23/2030 Cervical cancer screening Discontinued Meningococcal B Vaccine Aged Out No l onger eligible based on patient's age to complete this topic Meningococcal Vaccine Aged Out No kinga blanche eligible based on patient's age to complete this topic
--- OUTSIDE RECORDS SUMMARY | 2024-12-03 06:09 | XMS_ITS | Encounter Summary ---
Author Organization [facility] Address [address] [place] [address] Phone Care Team Providers Care Electrician Crane Maintenance Name Role Phone Agueda Ann MD Primary Care Provider [phone] Andie Rossi MD Unavailable West Doll MD Unavailable Britany Coles MD Unavailable [phone] Naun Hoang MD Unavailable + Agueda Ann MD Unavailable Mely Bhatti RN Unavailable [email or web address] Encounter Details Date Type Department Care Team (Late st Contact Info) Description 12/24/2022 Procedure Pass [facility], [facility] 30 [place] [address] Social History Tobacco Use Types Packs/Day Years [...] high school, GED, job training, learning the Japanese language, technical skills, or developing parenting skills)? [...] 12/24/2022 9:29 AM Natalya Menon, NICOLE * [place] Suicide Severity Rating Scale (Screener/Recent Self-Report) Question Answer Date of Assessment Author 1. Wish to be (Past 1 Month) No 09/29/2 023 9:29 AM EDT Natalya Delgadillo RN 2. Non-Specific Active Suici minerva Thoughts (Past 1 Month) No 12/24/2022 9:29 AM EDT Natalya Delgadillo RN 6. Suicidal Behavior (Lifetime) No 3 9:29 AM EDT Natalya Delgadillo RN documented as of this encounter Plan of Treatment Not on file documented as of this encounter Visit Diagnoses Not on filedocumented in this encounter Additional Health Concerns Assessment Noted Time PHQ-2 Depression Total Score: 0 01/21/20 21 11:07 AM EDT documented as of this encounter Care Teams Electrician Crane Maintenance Relationship Specialty Start Date End Date Agueda Ann MD [address] [address] [email or web address] PCP - General Family Medicine 02/01/19 Andie Rossi MD [address] [place] [address] Neurology 03/02/19 West Doll MD [address] [place] [address] 104 [place] [address] Cardiology 03/02/19 Britany Coles MD [address] [place] [address] 140 [place] [phone] [email or web address] 03/02/19 Naun Hoang MD [address] [place] [address] Infectious Diseases 03/02/19 Agueda Ann MD [address] [address] [email or web address] Insurance Assigned Provider 4/6/24 1/6/25 Mely Bhatti, NICOLE [address] [place] [address] [email or web address] Transport Specialist 05/12/23 06/09/23 documented as of this encounter Additional Source Comments The information contained in this document represents components of the legal health record. It is not the complete legal health record.[facility]
--- OUTSIDE RECORDS SUMMARY | 2024-12-03 06:09 | XMS_ITS | Encounter Summary ---
Author Organization [facility] Address [address] [place] [address] Phone Care Team Providers Care Instrument Repairer Steam Plant Name Role Phone Agueda Ann MD Primary Care Provider [phone] Andie Rossi MD Unavailable [phone] West Doll MD Unavailable Britany Coles MD Unavailable [phone] Naun Hoang MD Unavailable + Agueda Ann MD Unavailable Mely Bhatti RN Unavailable [email or web address] Encounter Details Date Type Department Care Team (Late st Contact Info) Description 12/24/2022 Procedure Pass [facility], Ct Scan - [facility] [address] [place] [address] Social History Tobacco Use Types Packs/Day Years [...] high school, GED, job training, learning the Swedish language, technical skills, or developing parenting skills)? [...] Risk Indicated 12/24/2022 9:29 AM ALEKT Natalya Delgadillo RN * [place] Suicide Severity Rating Scale (Screener/Recent Self-Report) Question [...] documented as of this encounter Care Teams Instrument Repairer Steam Plant Relationship Specialty Start Date End Date Agueda Ann MD [address] [address] [email or web address] PCP - General Family Medicine 02/01/19 Andie Rossi MD [address] [place] [address] Neurology 03/02/19 West Doll MD [address] [place] [address] 104 [place] [address] Cardiology 03/02/19 Britany Coles MD [address] [place] [address] 140 [place] [phone] [email or web address] Surgery 03/02/19 Naun Hoang MD [address] [place] [address] Infectious Diseases 03/02/19 Agueda Ann MD [address] [address] [email or web address] Insurance Assigned Provider 07/02/23 04/02/24 Mely Bhatti, NICOLE [address] [address] [email or web address] Residential Green Building Designer 05/12/23 06/09/23 documented as of this encounter Additional Source Comments The information contained in this document represents components of the legal health record. It is not the complete legal health record.[facility]
--- OUTSIDE RECORDS SUMMARY | 2024-12-03 06:09 | XMS_ITS | Encounter Summary ---
Author Organization [facility] Address [address] [place] [address] Phone Care Team Providers Care Jewish Thought Professor Name Role Phone Agueda Ann MD Primary Care Provider [phone] Andie Rossi MD Unavailable West Doll MD Unavailable [phone] Britany Coles MD Unavailable [phone] Naun Hoang MD Unavailable + Agueda Ann MD Unavailable Mely Bhatti RN Unavailable [email or web address] Encounter Details Date Type Department Care Team (Late st Contact Info) Description 12/25/2022 Procedure Pass [facility] [address] [place] [address] Social History Tobacco Use Types Packs/Day Years [...] high school, GED, job training, learning the Lithuanian language, technical skills, or developing parenting skills)? [...] documented as of this encounter Care Teams Jewish Thought Professor Relationship Specialty Start Date End Date Agueda Ann MD [address] [place] [address] [email or web address] PCP - General Family Medicine 02/01/19 Andie Rossi MD [address] [place] [address] Neurology 03/02/19 West Doll MD [address] [place] [address] 104 [place] [address] Cardiology 03/02/19 Britany Coles MD [address] [place] [address] 140 [place] [phone] [email or web address] Orthopedic Surgery 03/02/19 [place] [address] [place] [address] Infectious Diseases 03/02/19 Agueda Ann MD [address] [address] [email or web address] Insurance Assigned Provider 07/02/23 04/02/24 Mely Bhatti RN [address] [address] [email or web address] Senior Accountant Analyst 05/12/23 06/09/23 documented as of this encounter Additional Source Comments The information contained in this document represents components of the legal health record. It is not the complete legal health record.[facility]
--- OUTSIDE RECORDS SUMMARY | 2024-12-03 06:09 | XMS_ITS | Encounter Summary ---
Author Organization [facility] Address [address] [place] [address] Phone Care Team Providers Care Digitizer Operator Name Role Phone Agueda Ann MD Primary Care Provider [phone] Andie Rossi MD Unavailable [phone] West Doll MD Unavailable [phone] Britany Coles MD Unavailable [phone] Naun Hoang MD Unavailable + Agueda Ann MD Unavailable Mely Bhatti RN Unavailable [email or web address] Encounter Details Date Type Department Care Team (Late st Contact Info) Description 12/24/2022 Procedure Pass [facility] 30 [place] [address] Social History Tobacco Use Types Packs/Day Years [...] high school, GED, job training, learning the Norwegian language, technical skills, or developing parenting skills)? [...] 12/24/2022 9:29 AM Natalya Menon, NICOLE * [place] Suicide Severity Rating Scale (Screener/Recent Self-Report) Question [...] documented as of this encounter Care Teams Digitizer Operator Relationship Specialty Start Date End Date Agueda Ann MD [address] [address] [email or web address] PCP - General Family Medicine 02/01/19 Andie Rossi MD [address] [place] [address] Neurology 03/02/19 West Doll MD [address] [place] [address] 104 [place] [address] Cardiology 03/02/19 Britany Coles MD [address] [place] [address] 140 [place] [phone] [email or web address] [email or web address] Surgery 03/02/19 Naun Hoang MD [address] [place] [address] Infectious Diseases 03/02/19 Agueda Ann MD [address] [address] [email or web address] Insurance Assigned Provider 4/6/24 1/6/25 Mely Bhatti, NICOLE [address] [place] [address] [email or web address] Cargo Handler 05/12/23 06/09/23 documented as of this encounter Additional Source Comments The information contained in this document represents components of the legal health record. It is not the complete legal health record.[facility]
--- OUTSIDE RECORDS SUMMARY | 2024-12-03 06:09 | XMS_ITS | Clinical Summary ---
Author Organization [employer] Address [address] [facility] 7t [place] [address] Care Team Providers Care Printing Shop Supervisor Name Role Phone Unavailable Primary Care [...] B[employer]wings 05/25/2023 05/24/2022 COVID-19 Vaccine ( season) 2024 12/31/2021, 08/03/2021, 12/25/2020, Additional history exists Influenza [...] Most Recently Relevant to Health Maintenance Insurance [facility] MEDICAID STAND ADULT
--- OUTSIDE RECORDS SUMMARY | 2024-12-03 06:09 | XMS_ITS | Encounter Summary ---
Author Organization [email or web address] Address [address] [facility] 7t [place] [address] Care Team Providers Care Payroll Examiner Name Role Phone Unavailable Primary Care Provider Unavailabl e Encounter Details Date Type Department Care Team (Latest Contact Info) Description 07/09/2020 Abstract [facility] CONVERSIONS Dental, Provider, DDS Social History [...]
--- OUTSIDE RECORDS SUMMARY | 2024-12-03 06:09 | XMS_ITS | Encounter Summary ---
Author Organization [facility] Address [address] [place] [address] Phone Care Team Providers Care Drawing Kiln Supervisor Name Role Phone Agueda Ann MD Primary Care Provider [phone] Andie Rossi MD Unavailable West Doll MD Unavailable [phone] Britany Coles MD Unavailable Naun Hoang MD Unavailable + Agueda Ann MD Unavailable Latosha Garcia OT Unavailable Mely Bhatti RN Unavailable [email or web address] Encounter Details Date Type Department Care Team (Late st Contact Info) Description 11/18/2022 Procedure Pass [facility] 30 [place] [address] Social History Tobacco Use Types Packs/Day Years [...] high school, GED, job training, learning the Swazi language, technical skills, or developing parenting skills)? [...] documented as of this encounter Care Teams Drawing Kiln Supervisor Relationship Specialty Start Date End Date Agueda Ann MD [address] [place] [address] PCP - General Family Medicine 02/01/19 Andie Rossi MD 48 [place] [address] Neurology 03/02/19 West Doll MD [address] [place] [address] 104 [place] [address] Cardiology 03/02/19 Britany Coles MD 175 [facility] 140 [place] [phone] [email or web address] [email or web address] Surgery 03/02/19 [place] [address] [place] [address] Infectious Diseases 03/02/19 Agueda Ann MD [address] [address] [email or web address] Insurance Assigned Provider 07/02/23 04/02/24 Latosha Garcia, OT 30 [place] [address] [email or web address] Transitions Garden LabourerAssembly And Packing Supervisor Therapy 11/24/22 11/25/22 Mely Bhatti, NICOLE 30 [place] [address] [email or web address] Garden Labourer 05/12/23 06/09/23 documented as of this encounter Additional Source Comments The information contained in this document represents components of the legal health record. It is not the complete legal health record.[facility]
--- OUTSIDE RECORDS SUMMARY | 2024-12-03 06:09 | XMS_ITS | Encounter Summary ---
Author Organization [facility] Address [address] [place] [address] Phone Care Team Providers Care Mixer Operator Tablets Name Role Phone Agueda Ann MD Primary Care Provider [phone] Andie Rossi MD Unavailable West Doll MD Unavailable [phone] Britany Coles MD Unavailable Naun Hoang MD Unavailable + Agueda Ann MD Unavailable Latosha Garcia OT Unavailable Latosha Garcia OT Unavailable [phone] Mely Bhatti RN Unavailable [email or web address] Encounter Details Date Type Department Care Team (Late st Contact Info) Description 11/04/2022 Procedure Pass [facility] 30 [place] [address] Social History Tobacco Use Types Packs/Day Years [...] high school, GED, job training, learning the Belgian language, technical skills, or developing parenting skills)? [...] 11/04/2022 1:06 AM Lucita Hirsch, NICOLE * [place] Suicide Severity Rating Scale (Screener/Recent Self-Report) Question Answer Date of Assessment Author 1. Wish to be (Past 1 Month) No 023 1:06 AM Lucita Hirsch, NICOLE 2. Non-Specific Active Suici minerva Thoughts (Past 1 Month) No 11/04/2022 1:06 AM EDT Kimi Arevalo RN 6. Suicidal Behavior (Lifetime) No 1:06 AM EDT Lucita Arevalo RN documented as of this encounter Plan of Treatment Not on file documented as of this encounter Visit Diagnoses Not on filedocumented in this encounter Additional Health Concerns Assessment Noted Time PHQ-2 Depression Total Score: 0 01/21/20 21 11:07 AM EDT documented as of this encounter Care Teams Mixer Operator Tablets Relationship Specialty Start Date End Date Agueda Ann MD [address] [address] [email or web address] PCP - General Family Medicine 02/01/19 Andie Rossi MD [address] [place] [address] Neurology 03/02/19 West Doll MD [address] [place] [address] 104 [place] [address] Cardiology 03/02/19 Britany Coles MD [address] [place] [address] 140 [place] [phone] [email or web address] Orthopedic Surgery 03/02/19 Naun Hoang MD [address] [place] [address] Infectious Diseases 03/02/19 Agueda Ann MD [address] [address] [email or web address] Insurance Assigned Provider 07/02/23 04/02/24 Latosha Garcia, OT 30 [place] [address] [email or web address] Transitions Wax PumperSwitch Box Installer Therapy 11/05/22 11/07/22 Latosha Garcia, OT 30 [place] [address] [email or web address] Transitions Wax PumperSwitch Box Installer Therapy 11/24/22 11/25/22 Mely Bhatti RN 30 [place] [address] [email or web address] Wax Pumper 05/12/23 06/09/23 documented as of this encounter Additional Source Comments The information contained in this document represents components of the legal health record. It is not the complete legal health record.[facility]
--- OUTSIDE RECORDS SUMMARY | 2024-12-03 06:09 | XMS_ITS | Encounter Summary ---
Author Organization [facility] Address [address] [place] [address] Phone Care Team Providers Care Monotype Mechanic Name Role Phone Agueda Ann MD Primary Care Provider [phone] Andie Rossi MD Unavailable West Doll MD Unavailable Britany Coles MD Unavailable Naun Hoang MD Unavailable + Agueda Ann MD Unavailable Mely Bhatti RN Unavailable [email or web address] Encounter Details Date Type Department Care Team (Late st Contact Info) Description 12/24/2022 Procedure Pass [facility] 30 [place] [address] Social History Tobacco Use Types Packs/Day Years [...] 12/24/2022 9:29 AM Natalya Menon, NICOLE * [place] Suicide Severity Rating Scale (Screener/Recent Self-Report) Question [...] documented as of this encounter Care Teams Monotype Mechanic Relationship Specialty Start Date End Date Agueda Ann MD [address] [address] [email or web address] PCP - General Family Medicine 02/01/19 Andie Rossi MD [address] [place] [address] Neurology 03/02/19 West Doll MD [address] [place] [address] 104 [place] [address] Cardiology 03/02/19 Britany Coles MD [address] [place] [address] 140 [place] [phone] [email or web address] [email or web address] Surgery 03/02/19 Naun Hoang MD [address] [place] [address] Infectious Diseases 03/02/19 Agueda Ann MD [address] [address] [email or web address] Insurance Assigned Provider 4/6/24 1/6/25 Mely Bhatti, NICOLE [address] [place] [address] [email or web address] Manufacturing Lab Technician 05/12/23 06/09/23 documented as of this encounter Additional Source Comments The information contained in this document represents components of the legal health record. It is not the complete legal health record.[facility]
--- OUTSIDE RECORDS SUMMARY | 2024-12-03 06:09 | XMS_ITS | Encounter Summary ---
Author Organization [employer] Address [address] [facility] [address] 7t [place] [address] Care Team Providers Care Oncology Radiation Physician Name Role Phone Unavailable Primary Care Provider Unavailabl e Reason for Visit * Reason Onset Date Comments medical clearance 05/27/2022 Encounter Details Date Type Department Care Team (Late st Contact Info) Description 05/27/2022 Telephone [facility] [address] [place] [address] Davonte Cunningham DDS medical clearance Social History [...] was for medical clearance. Pls re send [phone] * Telephone Encounter - Lucina Leigh - [...] was for medical clearance. Pls re send [phone] documented in this encounter Plan of Treatment Not on file documented as of this encounter Visit Diagnoses Not on filedocumented in this encounter
--- OUTSIDE RECORDS SUMMARY | 2024-12-03 06:09 | XMS_ITS | Patient Health Record ---
Author Organization [address] [place] [address] [address] [facility] Address [address] [id number] Care Team Providers Care Lining Repairer Name Role Phone BARTOLO Dunbar Supriya [phone] Reason For Referral No Information Plan Of Treatment No Information
--- OUTSIDE RECORDS SUMMARY | 2024-12-03 06:09 | XMS_ITS | Encounter Summary ---
Author Organization [facility] Address [address] [place] [address] Phone Care Team Providers Care Deliverer Food Name Role Phone Agueda Ann MD Primary Care Provider [phone] Andie Rossi MD Unavailable [phone] West Doll MD Unavailable Britany Coles MD Unavailable Naun Hoang MD Unavailable + Agueda Ann MD Unavailable Mely Bhatti RN Unavailable [email or web address] Encounter Details Date Type Department Care Team (Late st Contact Info) Description 12/24/2022 Procedure Pass [facility], Ct Scan - [facility] 30 [place] [address] Social History Tobacco Use Types Packs/Day Years [...] high school, GED, job training, learning the Cook Islander language, technical skills, or developing parenting skills)? [...] 9:29 AM ALEKT Natalya Delgadillo RN * [place] Suicide Severity Rating Scale (Screener/Recent Self-Report) Question [...] documented as of this encounter Care Teams Deliverer Food Relationship Specialty Start Date End Date Agueda Ann MD [address] [address] [email or web address] PCP - General Family Medicine 02/01/19 Andie Rossi MD [address] [place] [address] Neurology 03/02/19 West Doll MD [address] [place] [address] 104 [place] [address] Cardiology 03/02/19 Britany Coles MD [address] [place] [address] 140 [place] [phone] [email or web address] 03/02/19 Naun Hoang MD [address] [place] [address] Infectious Diseases 03/02/19 Agueda Ann MD [address] [address] [email or web address] Insurance Assigned Provider 07/02/23 04/02/24 Mely Bhatti, NICOLE [address] [address] [email or web address] Food [email or web address] Nutrition Teacher 05/12/23 06/09/23 documented as of this encounter Additional Source Comments The information contained in this document represents components of the legal health record. It is not the complete legal health record.[facility]
--- OUTSIDE RECORDS SUMMARY | 2024-12-03 06:09 | XMS_ITS | Clinical Summary ---
Author Organization [facility] it Address [address] [place] [address] Care Team Providers Care Care Clinician Name Role Phone Unavailable Primary Care Provider Unavailabl e Immunizations Name Administration Dates Next Due Pfizer SARS-CoV-2 COVID-19, mRNA, LNP-S, preservative free 07/02/2020,06/07/2020 Surgical History Surgery Date Site/Laterality Comments NECK SURGERY PROCEDURE: HISTORICAL NECK SURGERY; COMMENT: spinal stenosis TONSILLECTOMY PROCEDURE: HISTORICAL TONSILLECTOMY CHOLECYSTECTOMY 09/1989 PROCEDURE: HISTORICAL CHOLECYSTECTOMY BREAST REDUCTION PROCEDURE: ME BREAST REDUCTION ROBOTIC ASSISTED HYSTERECTOMY 03/05/14 PROCEDURE: [...]
--- OUTSIDE RECORDS SUMMARY | 2024-12-03 06:09 | XMS_ITS | Encounter Summary ---
Author Organization [employer] Address [address] [facility] 7t [place] [address] Care Team Providers Care Venetian Blind Washer Name Role Phone Unavailable Primary Care Provider Unavailabl e Encounter Details Date Type Department Care Team (Latest Contact Info) Description 05/02/2018 Abstract [facility] CONVERSIONS Dental, Provider, DDS Social History [...]
--- OUTSIDE RECORDS SUMMARY | 2024-12-03 06:09 | XMS_ITS | Encounter Summary ---
Author Organization [employer] Address [address] [facility] 7t [place] [address] Care Team Providers Care Field Artillery Radar Operator Name Role Phone Unavailable Primary Care Provider Unavailabl e Encounter Details Date Type Department Care Team (Latest Contact Info) Description 06/29/2021 Abstract [facility] CONVERSIONS Dental, Provider, DDS Social History Tobacco [...]
--- OUTSIDE RECORDS SUMMARY | 2024-12-03 06:09 | XMS_ITS | Clinical Summary ---
Author Organization [facility] Address [address] [place] [address] Phone Care Team Providers Care Investigative Assistant Name Role Phone Agueda Ann MD Primary Care Provider [phone] Andie Rossi MD Unavailable [phone] West Doll MD Unavailable [phone] Britany Coles MD Unavailable Naun Hoang MD [...] mouth daily. 4 Active neomycin/bacitra negrito/polymyxinB (NEOSPORIN, [id number], TP) Apply 1 Application topically 2 (two) [...] 20 MG tabletIndication s:Coronary artery disease involving [place] heart without angina pectoris, unspecified vessel or [...] an echo, and follow-up with her own lymphedema therapist who is at [place]. Acquired hypothyroidism 09/04/2020 Assessment & Plan (12/26/2022 [...] like to little and she is established [place] weight management so I like her to see the well logger there she understands and agrees this plan Assessment & Plan (05/17/2019 12:35 PM EST): She is working out, tracking her caloric intake and sticking to nutrition plan although she is under eating. No clear etiology for her weight gain. Start taking levothyroxine separately from the other medications. Check labs today. Make follow-up with well logger CAD (coronary artery disease) 03/02/2019 Overview (03/02/2019): h/o stent Assessment & Plan (12/26/2022 3:02 PM EDT): No active cp or acute concern -Continue electronic device monitor -Continue aspirin, atorvastatin, Plavix, and Zetia Is [...] and chronic pain. Certainly would benefit from SAND SYSTEM OPERATOR services and I have discussed with pt [...] pt can establish with someone new at [facility]. Assessment & Plan (01/21/2021 12:34 PM EDT): [...] and gait. She will be going to [facility] physical medicine and rehabilitation in [place] for this. IgG monoclonal gammopathy Assessment & Plan (03/02/2019 12:15 PM EST): Patient denies ever seeing hematology, has never heard this diagnosis and does not think that she has this. As I do not have records it is difficult for me to understand where this came from. I would like to review her [facility] records and if necessary we will do [...] appt for Neuro muscular in Dec at [facility]). No further pain. F/u as needed Assessment [...] this topic Medical Devices Implanted Type Area Whipper Device Identifier Shelf Expiration Date Model / Serial / Lot Stent Supera 6fr 5.5mm 120mm 120cm .014in Otw Vascular Peripheral Nitinol Self Expanding Closed End Braided - [id number] Implanted:Qty: 1 on 11/18/2022 by David Mendze MD at [facility] Stent [employer] 04/27/2024 [id number]-55-120-12 0-P6 / / [id number] Cardiac Stent Neck Hardware Procedures Procedure Name [...] EST) SODIUM 137 133 - 146 mmol/L [facility] CHLORIDE 101 96 - 108 mmol/L [facility] POTASSIUM 4.1 3.3 - 5.1 mmol/L [facility] CO2 24 21 - 35 mmol/L [facility] BUN 27(H) 6 - 19 mg/dL [facility] CREATININE 0.50 0.5 - 1.5 mg/dL [facility] GLUCOSE 103(H) 70 - 99 mg/dL [facility] CALCIUM 9.0 8.4 - 10.3 mg/dL [facility] EGFR 103 >59 mL/min/1.7 3m2 [facility] Comment:Estimated glomerular filtration rate calculated using the CKD-EPI refit equation. ANION GAP 16 10 - 20 mmol/L [facility] Blood 05/23/2023 4:12 PM EST 05/23/2023 4:32 PM EST Mely Padron PA-C LAB BLOOD ORDERABLES Final R esult [address] [address] * (ABNORMAL) TSH with reflex (01/13/2023 7:58 AM EDT) TSH 0.03(L) 0.27 - 4.20 uIU/mL [facility] Blood 01/13/2023 7:58 AM EDT 01/13/2023 8:03 AM EDT Agueda Ann MD LAB BLOOD ORDERABLES Final Resul t Performing Organization Address City/[facility]/ZIP Co de Phone Number [address] [address] * (ABNORMAL) Lipid panel (12/25/2022 5:22 AM EDT) HDL 46 mg/dL [facility] Comment: Interpretation <40 mg/dL: Low HDL cholesterol (major risk factor for CHD) Greater than or equal to 60 mg/dL: High HDL cholesterol ( negative risk factor for CHD) HDL - cholesterol is affected by a number of factors, e.g. smoking, excerise, hormones, sex and age. CHOLESTEROL 98 0 - 240 mg/dL [facility] TRIGLYCERIDES 86 30 - 160 mg/dL [facility] LDL 35(L) 50 - 129 mg/dL [facility] Comment: LDL levels in terms of risk for coronary heart disease: <100 mg/dL: Optimal 100-129 mg/dL: Near or above optimal 130-159 mg/dL: Borderline high 160-189 mg/dL: High >190 mg/dL: Very High CARDIAC RISK RATIO 2.1(L) 3.3 - 4.4 [facility] Blood 12/25/2022 5:22 AM EDT 12/25/2022 6:22 AM EDT us Kayley Ribera NP LAB BLOOD ORDERABLES Fi nal Result [address] [address] * MAMMOGRAPHY FOR RESULT ENTRY ONLY (07/07/2022) us Agueda Ann MD HEALTH MAINTENANCE Edited Result - Final from Last 3 Months or Most Recently Relevant to Health Maintenance Insurance MEDICARE PART [place] [facility] [place] [facility] [place] & B [facility] MEDICARE PART A & [place] & B [facility] Advance Directives For more information, please contact: [phone] (9AM - 5PM [facility], Tuesday-Tuesday) Documents on File Type Date Recorded Patient Director Of Litigation Expl anation Healthcare Proxy 11/08/2022 6:36 PM [...] Code Status Confirmed With: Patient Care Teams Investigative Assistant Relationship Specialty Start Date End Date Agueda Ann MD [address] [place] [address] PCP - General Family Medicine 02/01/19 Andie Rossi MD [address] [place] [address] Neurology 03/02/19 West Doll MD [address] [place] [address] 104 [place] [address] Cardiology 03/02/19 Britany Coles MD [address] [place] [address] 140 [place] [address] [email or web address] Surgery 03/02/19 Naun Hoang MD [address] [address] Infectious Diseases 03/02/19 Additional Source Comments The information contained in this document represents components of the legal health record. It is not the complete legal health record.[facility]
--- OUTSIDE RECORDS SUMMARY | 2024-12-03 06:10 | XMS_ITS | Encounter Summary ---
Author Organization [facility] Address [address] [place] [address] Phone Care Team Providers Care Hair Blender Name Role Phone Agueda Ann MD Primary Care Provider [phone] Andie Rossi MD Unavailable [phone] West Doll MD Unavailable Britany Coles MD Unavailable Naun Hoang MD Unavailable + Agueda Ann MD Unavailable Latosha Garcia OT Unavailable [phone] Latosha Garcia OT Unavailable [phone] Mely Bhatti RN Unavailable [email or web address] Encounter Details Date Type Department Care Team (Late st Contact Info) Description 10/04/2019 Ancillary Orders [facility],Outside Imaging 30 [place] [address] System, Provider Not In, PhD Partners [address] [address] Social History Tobacco Use Types Packs/Day Years [...] documented as of this encounter Care Teams Hair Blender Relationship Specialty Start Date End Date Agueda Ann MD [address] [address] PCP - General Family Medicine 02/01/19 Andie Rossi MD 48 [place] [address] Neurology 03/02/19 West Doll MD [address] [place] [address] 104 [place] [address] Cardiology 03/02/19 Britany Coles MD [address] [place] [address] 140 [place] [phone] [email or web address] 03/02/19 [place] [address] [place] [address] Infectious Diseases 03/02/19 Agueda Ann MD [address] [address] [email or web address] Insurance Assigned Provider 07/02/23 04/02/24 Latosha Garcia, OT [address] [place] [address] [email or web address] Transitions Health AdministratorJewel Bearing Polisher Therapy 11/05/22 11/07/22 Latosha Garcia, OT [address] [place] [address] [email or web address] Transitions Health AdministratorJewel Bearing Polisher Therapy 11/24/22 11/25/22 Mely Bahtti, NICOLE [address] [place] [address] [email or web address] iCMP Health Administrator 05/12/23 06/09/23 documented as of this encounter Additional Source Comments The information contained in this document represents components of the legal health record. It is not the complete legal health record.[facility]
--- OUTSIDE RECORDS SUMMARY | 2024-12-03 06:10 | XMS_ITS | Encounter Summary ---
Author Organization [facility] Address [address] [place] [address] Phone Care Team Providers Care Auditing Control Clerk Name Role Phone Agueda Ann MD Primary Care Provider [phone] Andie Rossi MD Unavailable [phone] West Doll MD Unavailable Britany Coles MD Unavailable Naun Hoang MD Unavailable + Agueda Ann MD Unavailable Mely Bhatti RN Unavailable [email or web address] Encounter Details Date Type Department Care Team (Late st Contact Info) Description 12/25/2022 Procedure Pass Non-Invasive Cardiology 30 [place] [address] Social History Tobacco Use Types Packs/Day Years [...] high school, GED, job training, learning the Tajik language, technical skills, or developing parenting skills)? [...] documented as of this encounter Care Teams Auditing Control Clerk Relationship Specialty Start Date End Date Agueda Ann MD [address] [place] [address] [email or web address] PCP - General Family Medicine 02/01/19 Andie Rossi MD 48 [place] [address] Neurology 03/02/19 West Dlol MD [address] [place] [address] 104 [place] [address] Cardiology 03/02/19 Britany Coles MD [address] [place] [address] 140 [place] [phone] Orthopedic Surgery 03/02/19 [place] [address] [place] [address] Infectious Diseases 03/02/19 Agueda Ann MD [address] [address] [email or web address] Insurance Assigned Provider 07/02/23 04/02/24 Mely Bhatti RN [address] [address] [email or web address] iCMP Cable Installer 05/12/23 06/09/23 documented as of this encounter Additional Source Comments The information contained in this document represents components of the legal health record. It is not the complete legal health record.[facility]
[2024-12-03 06:54] LABS: Hematocrit 29.3 % (37.0-47.0); Hemoglobin 9.3 g/dl (12.0-16.0); Imm Gran Abs Auto 0.07 X10*3/uL (0.00-0.03); Imm Gran Pct Auto 0.6 % (0.0-0.4); Lymphocytes Absolute Auto 1.7 X10*3/uL (1.2-4.9); Mean Corpuscular HGB Conc 31.7 g/dl (31.0-35.0); Mean Corpuscular Hemoglobin 26.8 pg (27.0-33.0); Mean Corpuscular Volume 84.4 fL (80.0-98.0); NRBC Abs Auto 0.000 X10*3/uL (0.0-0.012); NRBC Pct Auto 0.0 /100WBC (0.0-0.2); Platelet Count 418 X10*3/uL (160-400); Red Blood Count 3.47 X10*6/uL (4.20-5.50); White Blood Count 12.2 X10*3/uL (4.8-10.8)
[2024-12-03 06:59] LABS: Anion Gap 14 (12-20); Blood Urea Nitrogen 24 mg/dL (9-16); Calcium 8.5 mg/dL (8.4-10.2); Carbon Dioxide 20 mmol/L (22-29); Chloride 111 mmol/L (96-108); Estimated Glomerular Filt Rate > 60; Potassium 4.8 mmol/L (3.3-5.1); Sodium 140 mmol/L (135-145)
== END 2024-12-03 06:07 | disposition home or self-care (01) ==
LOC: HO.MMNH3L 06:06
PROVIDERS: Visit Provider Student in an Organized Health Care Education/Training Program
DX: I25.9 Chronic ischemic heart disease, unspecified (principal); I69.398 Other sequelae of cerebral infarction; E03.9 Hypothyroidism, unspecified; Z89.611 Acquired absence of right leg above knee
CPT/HCPCS: 36415; 80048; 85025

== ENCOUNTER 2024-12-07 05:34 | Outpatient (REF) | payer MEDICARE, MEDICAID, SELFPAY ==
[2024-12-07 05:36] LABS: MANUAL DIFF FLAG NO
--- OUTSIDE RECORDS SUMMARY | 2024-12-07 05:38 | XMS_ITS | Clinical Summary ---
Author Organization [facility] Address [address] [place] [address] Phone Care Team Providers Care Bus Inspector Name Role Phone Agueda Ann MD Primary Care Provider [phone] Andie Rossi MD Unavailable [phone] West Doll MD Unavailable [phone] Britany Coles MD Unavailable Naun Hoang MD [...] mouth daily. 4 Active neomycin/bacitra negrito/polymyxinB (NEOSPORIN, [id number], TP) Apply 1 Application topically 2 (two) [...] 20 MG tabletIndication s:Coronary artery disease involving [place] heart without angina pectoris, unspecified vessel or [...] an echo, and follow-up with her own heat treating operator who is at [place]. Acquired hypothyroidism 09/04/2020 Assessment & Plan (12/26/2022 [...] like to little and she is established [place] weight management so I like her to see the coding support specialist there she understands and agrees this plan Assessment & Plan (05/17/2019 12:35 PM EST): She is working out, tracking her caloric intake and sticking to nutrition plan although she is under eating. No clear etiology for her weight gain. Start taking levothyroxine separately from the other medications. Check labs today. Make follow-up with coding support specialist CAD (coronary artery disease) 03/02/2019 Overview (03/02/2019): h/o stent Assessment & Plan (12/26/2022 3:02 PM EDT): No active cp or acute concern -Continue clinical research monitor -Continue aspirin, atorvastatin, Plavix, and Zetia [...] and chronic pain. Certainly would benefit from BARREL BANDER services and I have discussed with pt [...] pt can establish with someone new at [facility]. Assessment & Plan (01/21/2021 12:34 PM EDT): [...] and gait. She will be going to [facility] physical medicine and rehabilitation in [place] for this. IgG monoclonal gammopathy Assessment & Plan (03/02/2019 12:15 PM EST): Patient denies ever seeing hematology, has never heard this diagnosis and does not think that she has this. As I do not have records it is difficult for me to understand where this came from. I would like to review her [facility] records and if necessary we will do [...] appt for Neuro muscular in Dec at [facility] No further pain. F/u as needed Assessment [...] this topic Medical Devices Implanted Type Area Engineering Documentation Specialist Device Identifier Shelf Expiration Date Model / Serial / Lot Stent Supera 6fr 5.5mm 120mm 120cm .014in Otw Vascular Peripheral Nitinol Self Expanding Closed End Braided - [id number] Implanted:Qty: 1 on 11/18/2022 by David Mendez MD at [facility] Stent [id number] 04/27/2024 S-55-120-12 0-P6 / / [id number] Cardiac Stent Neck Hardware Procedures Procedure Name [...] EST) SODIUM 137 133 - 146 mmol/L [facility] CHLORIDE 101 96 - 108 mmol/L [facility] POTASSIUM 4.1 3.3 - 5.1 mmol/L [facility] CO2 24 21 - 35 mmol/L [facility] BUN 27(H) 6 - 19 mg/dL [facility] CREATININE 0.50 0.5 - 1.5 mg/dL [facility] GLUCOSE 103(H) 70 - 99 mg/dL [facility] CALCIUM 9.0 8.4 - 10.3 mg/dL [facility] EGFR 103 >59 mL/min/1.7 3m2 [facility] Comment:Estimated glomerular filtration rate calculated using the CKD-EPI refit equation. ANION GAP 16 10 - 20 mmol/L [facility] Blood 05/23/2023 4:12 PM EST 05/23/2023 4:32 PM EST Mely Padron PA-C LAB BLOOD ORDERABLES Final R esult [address] [address] * (ABNORMAL) TSH with reflex (01/13/2023 7:58 AM EDT) TSH 0.03(L) 0.27 - 4.20 uIU/mL [facility] Blood 01/13/2023 7:58 AM EDT 01/13/2023 8:03 AM EDT Agueda nAn MD LAB BLOOD ORDERABLES Final Resul t Performing Organization Address City/[facility]/ZIP Co de Phone Number [address] [address] * (ABNORMAL) Lipid panel (12/25/2022 5:22 AM EDT) HDL 46 mg/dL [facility] Comment: Interpretation <40 mg/dL: Low HDL cholesterol (major risk factor for CHD) Greater than or equal to 60 mg/dL: High HDL cholesterol ( negative risk factor for CHD) HDL - cholesterol is affected by a number of factors, e.g. smoking, excerise, hormones, sex and age. CHOLESTEROL 98 0 - 240 mg/dL [facility] TRIGLYCERIDES 86 30 - 160 mg/dL [facility] LDL 35(L) 50 - 129 mg/dL [facility] Comment: LDL levels in terms of risk for coronary heart disease: <100 mg/dL: Optimal 100-129 mg/dL: Near or above optimal 130-159 mg/dL: Borderline high 160-189 mg/dL: High >190 mg/dL: Very High CARDIAC RISK RATIO 2.1(L) 3.3 - 4.4 [facility] Blood 12/25/2022 5:22 AM EDT 12/25/2022 6:22 AM EDT us Kayley Ribera NP LAB BLOOD ORDERABLES Fi nal Result [address] [address] * MAMMOGRAPHY FOR RESULT ENTRY ONLY (07/07/2022) us Agueda Ann MD HEALTH MAINTENANCE Edited Result - Final from Last 3 Months or Most Recently Relevant to Health Maintenance Insurance [place]ARE PART [place] A & [facility] & [place] A & B [facility] PART A & [place] MEDICARE PART A & B [facility] MEDICARE PART A & [place] A & B [facility] Advance Directives For more information, please contact: [phone] (9AM - 5PM [facility], Tuesday-Tuesday) Documents on File Type Date Recorded Patient Industrial Trainer Expl anation Healthcare Proxy 11/08/2022 6:36 PM [...] Code Status Confirmed With: Patient Care Teams Bus Inspector Relationship Specialty Start Date End Date Agueda Ann MD [address] [place] [address] PCP - General Family Medicine 02/01/19 Andie Rossi MD 48 [place] [address] Neurology 03/02/19 West Doll MD [address] [place] [address] 104 [place] [address] Cardiology 03/02/19 Britany Coles MD [address] [place] [address] 140 [place] [address] [email or web address] Surgery 03/02/19 Naun Hoang MD [address] [address] Infectious Diseases 03/02/19 Additional Source Comments The information contained in this document represents components of the legal health record. It is not the complete legal health record.[facility]
--- OUTSIDE RECORDS SUMMARY | 2024-12-07 05:38 | XMS_ITS | Encounter Summary ---
Author Organization [employer] Address [address] [place] [address] Care Team Providers Care Face Worker Name Role Phone Unavailable Primary Care Provider Unavailabl e Reason for Visit * Reason Onset Date Comments medical clearance 05/27/2022 Encounter Details Date Type Department Care Team (Late st Contact Info) Description 05/27/2022 Telephone [facility] ADULT DENTAL [address] [place] [address] Davonte Cunningham DDS medical clearance Social History [...] was for medical clearance. Pls re send [phone] * Telephone Encounter - Lucina Leigh - [...] was for medical clearance. Pls re send [phone] documented in this encounter Plan of Treatment Not on file documented as of this encounter Visit Diagnoses Not on filedocumented in this encounter
--- OUTSIDE RECORDS SUMMARY | 2024-12-07 05:38 | XMS_ITS | Clinical Summary ---
Author Organization [address] Address [address] [place] [id number] Care Team Providers Care Creamery Worker Name Role Phone Unavailable Primary Care [...]
--- OUTSIDE RECORDS SUMMARY | 2024-12-07 05:38 | XMS_ITS | Encounter Summary ---
Author Organization [employer] Address [address] [facility] [address] [place] [address] Care Team Providers Care Population Health Coach Name Role Phone Unavailable Primary Care Provider Unavailabl e Encounter Details Date Type Department Care Team (Latest Contact Info) Description 06/29/2021 Abstract [facility] CONVERSIONS Dental, Provider, DDS Social History [...]
--- OUTSIDE RECORDS SUMMARY | 2024-12-07 05:38 | XMS_ITS | Encounter Summary ---
Author Organization [facility] Address [address] [place] [address] Phone Care Team Providers Care Rn Surgical Pcu Name Role Phone Agueda Ann MD Primary Care Provider [phone] Andie Rossi MD Unavailable [phone] West Doll MD Unavailable [phone] Britany Coles MD Unavailable Naun Hoang MD Unavailable + Agueda Ann MD Unavailable Latosha Garcia OT Unavailable Latosha Garcia OT Unavailable [phone] Mely Bhatti RN Unavailable [email or web address] Encounter Details Date Type Department Care Team (Late st Contact Info) Description 07/31/2021 Procedure Pass [facility] Endoscopy Admitting Dept Virtual Department 30 [place] [address] Social History Tobacco Use Types Packs/Day Years [...] high school, GED, job training, learning the Icelandic language, technical skills, or developing parenting skills)? [...] documented as of this encounter Care Teams Rn Surgical Pcu Relationship Specialty Start Date End Date Agueda Ann MD [address] [place] [address] PCP - General Family Medicine 02/01/19 Andie Rossi MD [address] [place] [address] Neurology 03/02/19 West Doll MD [address] [place] [address] Cardiology 03/02/19 Britany Coles MD [address] [facility] 140 [place] [phone] [email or web address] 03/02/19 Naun Hoang MD 3300 [facility] [address] [place] [address] Infectious Diseases 03/02/19 Agueda Ann MD [address] [address] [email or web address] Insurance Assigned Provider 07/02/23 04/02/24 Latosha Garcia, OT 30 [place] [address] [email or web address] Transitions Lemon GrowerFerryboat Pilot Therapy 11/05/22 11/07/22 Latosha Garcia, OT 30 [place] [address] [email or web address] Transitions Lemon GrowerFerryboat Pilot Therapy 11/24/22 11/25/22 Mely Bhatti RN 30 [place] [address] [email or web address] iCMP Lemon Grower 05/12/23 06/09/23 documented as of this encounter Additional Source Comments The information contained in this document represents components of the legal health record. It is not the complete legal health record.[facility]
--- OUTSIDE RECORDS SUMMARY | 2024-12-07 05:38 | XMS_ITS | Encounter Summary ---
Author Organization [facility] Address [address] [place] [address] Phone Care Team Providers Care Obstetrics Gynecology Md Name Role Phone Agueda Ann MD Primary Care Provider [phone] Andie Rossi MD Unavailable [phone] West Doll MD Unavailable [phone] Britany Coles MD Unavailable [phone] Naun Hoang MD Unavailable + Agueda Ann MD Unavailable Mely Bhatti RN Unavailable [email or web address] Encounter Details Date Type Department Care Team (Late st Contact Info) Description 12/25/2022 Procedure Pass [facility] Echo Lab [address] [place] [address] Social History Tobacco Use Types Packs/Day Years [...] high school, GED, job training, learning the [place] language, technical skills, or developing parenting skills)? [...] documented as of this encounter Care Teams Obstetrics Gynecology Md Relationship Specialty Start Date End Date Agueda Ann MD [address] [place] [address] [email or web address] PCP - General Family Medicine 02/01/19 Andie Rossi MD [address] [place] [address] Neurology 03/02/19 West Doll MD [address] [place] [address] 104 [place] [address] Cardiology 03/02/19 Britany Coles MD [address] [place] [address] 140 [place] [phone] Orthopedic Surgery 03/02/19 [place] [address] [place] [address] Infectious Diseases 03/02/19 Agueda Ann MD [address] [address] [email or web address] Insurance Assigned Provider 07/02/23 04/02/24 Mely Bhatti RN [address] [address] [email or web address] iCMP Merchandise Distributor 05/12/23 06/09/23 documented as of this encounter Additional Source Comments The information contained in this document represents components of the legal health record. It is not the complete legal health record.[facility]
--- OUTSIDE RECORDS SUMMARY | 2024-12-07 05:38 | XMS_ITS | Encounter Summary ---
Author Organization [facility] Address [address] [place] [address] Phone Care Team Providers Care Airborne Operations Name Role Phone Agueda Ann MD Primary Care Provider [phone] Andie Rossi MD Unavailable West Doll MD Unavailable [phone] Britany Coles MD Unavailable Naun Hoang MD Unavailable + Agueda Ann MD Unavailable Mely Bhatti RN Unavailable [email or web address] Encounter Details Date Type Department Care Team (Late st Contact Info) Description 12/24/2022 Procedure Pass [facility], Ct Scan - [facility] 30 [place] [address] Social History Tobacco Use Types Packs/Day Years [...] high school, GED, job training, learning the Albanian language, technical skills, or developing parenting skills)? [...] 9:29 AM ALEKT Natalya Delgadillo RN * [place] Suicide Severity Rating Scale (Screener/Recent Self-Report) Question [...] documented as of this encounter Care Teams Airborne Operations Relationship Specialty Start Date End Date Agueda Ann MD [address] [address] [email or web address] PCP - General Family Medicine 02/01/19 Andie Rossi MD [address] [place] [address] Neurology 03/02/19 West Doll MD [address] [place] [address] 104 [place] [address] Cardiology 03/02/19 Britany Coles MD [address] [place] [address] 140 [place] [phone] [email or web address] [email or web address] Surgery 03/02/19 Naun Hoang MD [address] [place] [address] Infectious Diseases 03/02/19 Agueda Ann MD [address] [address] [email or web address] Insurance Assigned Provider 07/02/23 04/02/24 Mely Bhatti, NICOLE [address] [address] [email or web address] Director 05/12/23 06/09/23 documented as of this encounter Additional Source Comments The information contained in this document represents components of the legal health record. It is not the complete legal health record.[facility]
--- OUTSIDE RECORDS SUMMARY | 2024-12-07 05:38 | XMS_ITS | Encounter Summary ---
Author Organization [facility] Address [address] [place] [address] Phone Care Team Providers Care Release Of Information Clerk Name Role Phone Agueda Ann MD Primary Care Provider [phone] Andie Rossi MD Unavailable West Doll MD Unavailable Britany Coles MD Unavailable [phone] Naun Hoang MD Unavailable + Agueda Ann MD Unavailable Latosha Garcia OT Unavailable [phone] Mely Bhatti RN Unavailable [email or web address] Encounter Details Date Type Department Care Team (Late st Contact Info) Description 11/18/2022 Procedure Pass [facility] 30 [place] [address] Social History Tobacco Use Types Packs/Day Years [...] high school, GED, job training, learning the Mongolian language, technical skills, or developing parenting skills)? [...] documented as of this encounter Care Teams Release Of Information Clerk Relationship Specialty Start Date End Date Agueda Ann MD [address] [place] [address] PCP - General Family Medicine 02/01/19 Andie Rossi MD 48 [place] [address] Neurology 03/02/19 West Doll MD [address] [place] [address] 104 [place] [address] Cardiology 03/02/19 Britany Coles MD [address] [facility] [address] 140 [place] [address] [email or web address] 03/02/19 [place] [address] [place] [address] Infectious Diseases 03/02/19 Agueda Ann MD [address] [address] [email or web address] Insurance Assigned Provider 07/02/23 04/02/24 Latosha Garcia, OT 30 [place] [address] [email or web address] Transitions Senior Technical WriterOrdnance Handler Therapy 11/24/22 11/25/22 Mely Bhatti, NICOLE 30 [place] [address] [email or web address] iCMP Senior Technical Writer 05/12/23 06/09/23 documented as of this encounter Additional Source Comments The information contained in this document represents components of the legal health record. It is not the complete legal health record.[facility]
--- OUTSIDE RECORDS SUMMARY | 2024-12-07 05:38 | XMS_ITS | Clinical Summary ---
Author Organization [facility] it Address [address] [place] [address] Care Team Providers Care Low Voltage Technician Name Role Phone Unavailable Primary Care Provider Unavailabl e Immunizations Name Administration Dates Next Due Pfizer SARS-CoV-2 COVID-19, mRNA, LNP-S, preservative free 07/02/2020,06/07/2020 Surgical History Surgery Date Site/Laterality Comments NECK SURGERY PROCEDURE: HISTORICAL NECK SURGERY; COMMENT: spinal stenosis TONSILLECTOMY PROCEDURE: HISTORICAL TONSILLECTOMY CHOLECYSTECTOMY 09/1989 PROCEDURE: HISTORICAL CHOLECYSTECTOMY BREAST REDUCTION PROCEDURE: PA BREAST REDUCTION ROBOTIC ASSISTED HYSTERECTOMY 03/05/14 PROCEDURE: [...]
--- OUTSIDE RECORDS SUMMARY | 2024-12-07 05:38 | XMS_ITS | Encounter Summary ---
Author Organization [employer] Address [address] [facility] 7t [place] [address] Care Team Providers Care Manager Hris Name Role Phone Unavailable Primary Care Provider Unavailabl e Encounter Details Date Type Department Care Team (Latest Contact Info) Description 07/09/2020 Abstract [facility] CONVERSIONS Dental, Provider, DDS Social History [...]
--- OUTSIDE RECORDS SUMMARY | 2024-12-07 05:38 | XMS_ITS | Encounter Summary ---
Author Organization [facility] Address [address] [place] [address] Phone Care Team Providers Care Front End Engineer Name Role Phone Agueda Ann MD Primary Care Provider [phone] Andie Rossi MD Unavailable West Doll MD Unavailable Britany Coles MD Unavailable Naun Hoang MD Unavailable + Agueda Ann MD Unavailable Mely Bhatti RN Unavailable [email or web address] Encounter Details Date Type Department Care Team (Late st Contact Info) Description 12/24/2022 Procedure Pass [facility] 30 [place] [address] Social History Tobacco Use Types Packs/Day Years [...] high school, GED, job training, learning the Upper Sorbian language, technical skills, or developing parenting skills)? [...] 12/24/2022 9:29 AM Natalya Menon, NICOLE * [place] Suicide Severity Rating Scale (Screener/Recent Self-Report) Question Answer Date of Assessment Author 1. Wish to be (Past 1 Month) No 09/29/2 023 9:29 AM EDT Natalya Delgadillo RN 2. Non-Specific Active Suici minerva Thoughts (Past 1 Month) No 12/24/2022 9:29 AM EDT Natalya Delgdaillo RN 6. Suicidal Behavior (Lifetime) No 3 9:29 AM EDT Natalya Delgadillo RN documented as of this encounter Plan of Treatment Not on file documented as of this encounter Visit Diagnoses Not on filedocumented in this encounter Additional Health Concerns Assessment Noted Time PHQ-2 Depression Total Score: 0 01/21/20 21 11:07 AM EDT documented as of this encounter Care Teams Front End Engineer Relationship Specialty Start Date End Date Agueda Ann MD [address] [address] [email or web address] PCP - General Family Medicine 02/01/19 Andie Rossi MD [address] [place] [address] Neurology 03/02/19 West Doll MD [address] [place] [address] 104 [place] [address] Cardiology 03/02/19 Britany Coles MD [address] [place] [address] 140 [place] [phone] [email or web address] [email or web address] Surgery 03/02/19 Naun Hoang MD [address] [place] [address] Infectious Diseases 03/02/19 Agueda Ann MD [address] [address] [email or web address] Insurance Assigned Provider 4/6/24 1/6/25 Mely Bhatti, NICOLE [address] [place] [address] [email or web address] Gas Maker 05/12/23 06/09/23 documented as of this encounter Additional Source Comments The information contained in this document represents components of the legal health record. It is not the complete legal health record.[facility]
--- OUTSIDE RECORDS SUMMARY | 2024-12-07 05:38 | XMS_ITS | Encounter Summary ---
Author Organization [facility] Address [address] [place] [address] Phone Care Team Providers Care Knife Setter Name Role Phone Agueda Ann MD Primary Care Provider [phone] Andie Rossi MD Unavailable [phone] West Doll MD Unavailable [phone] Britany Coles MD Unavailable Naun Hoang MD Unavailable + Agueda Ann MD Unavailable Mely Bhatti RN Unavailable [email or web address] Encounter Details Date Type Department Care Team (Late st Contact Info) Description 12/24/2022 Procedure Pass [facility], Ct Scan - [facility] 30 [place] [address] Social History Tobacco Use Types Packs/Day Years [...] high school, GED, job training, learning the Turkish language, technical skills, or developing parenting skills)? [...] 9:29 AM ALEKT Natalya Delgadillo RN * [place] Suicide Severity Rating Scale (Screener/Recent Self-Report) Question [...] documented as of this encounter Care Teams Knife Setter Relationship Specialty Start Date End Date Agueda Ann MD [address] [address] [email or web address] PCP - General Family Medicine 02/01/19 Andie Rossi MD [address] [place] [address] Neurology 03/02/19 West Doll MD [address] [place] [address] 104 [place] [address] Cardiology 03/02/19 Britany Coles MD [address] [place] [address] 140 [place] [phone] [email or web address] [email or web address] 03/02/19 Naun Hoang MD [address] [place] [address] Infectious Diseases 03/02/19 Agueda Ann MD [address] [address] [email or web address] Insurance Assigned Provider 07/02/23 04/02/24 Mely Bhatti, NICOLE [address] [address] [email or web address] [email or web address] Grounds 05/12/23 06/09/23 documented as of this encounter Additional Source Comments The information contained in this document represents components of the legal health record. It is not the complete legal health record.[facility]
--- OUTSIDE RECORDS SUMMARY | 2024-12-07 05:38 | XMS_ITS | Patient Health Record ---
Author Organization [address] [place] [address] [address] [facility] Address [address] [id number] Care Team Providers Care Donor Services Specialist Name Role Phone BARTOLO Dunbar Supriya [phone] Reason For Referral No Information Plan Of Treatment No Information
--- OUTSIDE RECORDS SUMMARY | 2024-12-07 05:38 | XMS_ITS | Clinical Summary ---
Author Organization [employer] Address [address] [facility] 7t [place] [address] Care Team Providers Care Shell Press Operator Name Role Phone Unavailable Primary Care [...] Most Recently Relevant to Health Maintenance Insurance [facility] MEDICAID STAND ADULT
--- OUTSIDE RECORDS SUMMARY | 2024-12-07 05:38 | XMS_ITS | Encounter Summary ---
Author Organization [employer] Address 75 [facility] 7t [place] [address] Care Team Providers Care Manager Post Name Role Phone Unavailable Primary Care Provider Unavailabl e Encounter Details Date Type Department Care Team (Latest Contact Info) Description 05/02/2018 Abstract [facility] CONVERSIONS Dental, Provider, DDS Social History [...]
--- OUTSIDE RECORDS SUMMARY | 2024-12-07 05:38 | XMS_ITS | Encounter Summary ---
Author Organization [facility] Address [address] [place] [address] Phone Care Team Providers Care Coconut Jelly Roller Name Role Phone Agueda Ann MD Primary Care Provider [phone] Andie Rossi MD Unavailable West Doll MD Unavailable Britany Coles MD Unavailable [phone] Naun Hoang MD Unavailable + Agueda Ann MD Unavailable Mely Bhatti RN Unavailable [email or web address] Encounter Details Date Type Department Care Team (Late st Contact Info) Description 12/24/2022 Procedure Pass [facility], [facility] 30 [place] [address] Social History Tobacco Use Types Packs/Day Years [...] high school, GED, job training, learning the Urdu language, technical skills, or developing parenting skills)? [...] 12/24/2022 9:29 AM Natalya Menon, NICOLE * [place] Suicide Severity Rating Scale (Screener/Recent Self-Report) Question [...] documented as of this encounter Care Teams Coconut Jelly Roller Relationship Specialty Start Date End Date Agueda Ann MD [address] [address] [email or web address] PCP - General Family Medicine 02/01/19 Andie Rossi MD [address] [place] [address] Neurology 03/02/19 West Doll MD [address] [place] [address] 104 [place] [address] Cardiology 03/02/19 Britany Coles MD [address] [place] [address] 140 [place] [address] [email or web address] [email or web address] Surgery 03/02/19 Naun Hoang MD [address] [place] [address] Infectious Diseases 03/02/19 Agueda Ann MD [address] [address] [email or web address] Insurance Assigned Provider 4/6/24 1/6/25 Mely Bhatti, NICOLE [address] [place] [address] [email or web address] Auto Fleet Manager 05/12/23 06/09/23 documented as of this encounter Additional Source Comments The information contained in this document represents components of the legal health record. It is not the complete legal health record.[facility]
--- OUTSIDE RECORDS SUMMARY | 2024-12-07 05:38 | XMS_ITS | Encounter Summary ---
Author Organization [facility] Address [address] [place] [address] Phone Care Team Providers Care Substation Superintendent Name Role Phone Agueda Ann MD Primary Care Provider [phone] Andie Rossi MD Unavailable West Doll MD Unavailable [phone] Britany Coles MD Unavailable [phone] Naun Hoang MD Unavailable + Agueda Ann MD Unavailable Latosha Garcia OT Unavailable [phone] Latosha Garcia OT Unavailable [phone] Mely Bhatti RN Unavailable [email or web address] Encounter Details Date Type Department Care Team (Late st Contact Info) Description 11/04/2022 Procedure Pass [facility] 30 [place] [address] Social History Tobacco Use Types Packs/Day Years [...] high school, GED, job training, learning the South Sudanese language, technical skills, or developing parenting skills)? [...] 11/04/2022 1:06 AM Lucita Hirsch, NICOLE * [place] Suicide Severity Rating Scale (Screener/Recent Self-Report) Question [...] documented as of this encounter Care Teams Substation Superintendent Relationship Specialty Start Date End Date Agueda Ann MD [address] [address] [email or web address] PCP - General Family Medicine 02/01/19 Andie Rossi MD [address] [place] [address] Neurology 03/02/19 West Doll MD [address] [place] [address] 104 [place] [address] Cardiology 03/02/19 Britany Coles MD [address] [place] [address] 140 [place] [phone] [email or web address] [email or web address] Surgery 03/02/19 Naun Hoang MD [address] [place] [address] Infectious Diseases 03/02/19 Agueda Ann MD [address] [address] [email or web address] Insurance Assigned Provider 07/02/23 04/02/24 Latosha Garcia, OT 30 [place] [address] [email or web address] Transitions Blow Pit HelperIron Melter Therapy 11/05/22 11/07/22 Latosha Garcia, OT 30 [place] [address] [email or web address] Transitions Blow Pit HelperIron Melter Therapy 11/24/22 11/25/22 Mely Bhatti RN 30 [place] [address] [email or web address] Blow Pit Helper 05/12/23 06/09/23 documented as of this encounter Additional Source Comments The information contained in this document represents components of the legal health record. It is not the complete legal health record.[facility]
--- OUTSIDE RECORDS SUMMARY | 2024-12-07 05:38 | XMS_ITS | Encounter Summary ---
Author Organization [facility] Address [address] [place] [address] Phone Care Team Providers Care Skidder Name Role Phone Agueda Ann MD Primary Care Provider [phone] Andie Rossi MD Unavailable West Doll MD Unavailable Britany Coles MD Unavailable [phone] Naun Hoang MD Unavailable + Agueda Ann MD Unavailable Mely Bhatti RN Unavailable [email or web address] Encounter Details Date Type Department Care Team (Late st Contact Info) Description 12/24/2022 Procedure Pass [facility], [facility] 30 [place] [address] Social History Tobacco Use Types Packs/Day Years [...] high school, GED, job training, learning the Persian language, technical skills, or developing parenting skills)? [...] 12/24/2022 9:29 AM Natalya Menon, NICOLE * [place] Suicide Severity Rating Scale (Screener/Recent Self-Report) Question [...] documented as of this encounter Care Teams Skidder Relationship Specialty Start Date End Date Agueda Ann MD [address] [address] [email or web address] PCP - General Family Medicine 02/01/19 Andie Rossi MD [address] [place] [address] Neurology 03/02/19 West Doll MD [address] [place] [address] 104 [place] [address] Cardiology 03/02/19 Britany Coles MD [address] [place] [address] 140 [place] [phone] [email or web address] Surgery 03/02/19 Naun Hoang MD [address] [place] [address] Infectious Diseases 03/02/19 Agueda Ann MD [address] [address] [email or web address] Insurance Assigned Provider 4/6/24 1/6/25 Mely Bhatti, NICOLE [address] [place] [address] [email or web address] Die Cutter Diamond 05/12/23 06/09/23 documented as of this encounter Additional Source Comments The information contained in this document represents components of the legal health record. It is not the complete legal health record.[facility]
--- OUTSIDE RECORDS SUMMARY | 2024-12-07 05:39 | XMS_ITS | Encounter Summary ---
Author Organization [facility] Address [address] [place] [address] Phone Care Team Providers Care Preparation Supervisor Name Role Phone Agueda Ann MD Primary Care Provider [phone] Andie Rossi MD Unavailable [phone] West Doll MD Unavailable Britany Coles MD Unavailable [phone] Naun Hoang MD Unavailable + Agueda Ann MD Unavailable Mely Bhatti RN Unavailable [email or web address] Encounter Details Date Type Department Care Team (Late st Contact Info) Description 12/25/2022 Procedure Pass Non-Invasive Cardiology 30 [place] [address] Social History Tobacco Use Types Packs/Day Years [...] high school, GED, job training, learning the Burmese language, technical skills, or developing parenting skills)? [...] documented as of this encounter Care Teams Preparation Supervisor Relationship Specialty Start Date End Date Agueda Ann MD [address] [place] [address] [email or web address] PCP - General Family Medicine 02/01/19 Andie Rossi MD 48 [place] [address] Neurology 03/02/19 West Doll MD [address] [place] [address] 104 [place] [address] Cardiology 03/02/19 Britany Coles MD [address] [place] [address] 140 [place] [phone] Orthopedic Surgery 03/02/19 [place] [address] [place] [address] Infectious Diseases 03/02/19 Agueda Ann MD [address] [address] [email or web address] Insurance Assigned Provider 07/02/23 04/02/24 Mely Bhatti RN [address] [address] [email or web address] iCMP Production Welder 05/12/23 06/09/23 documented as of this encounter Additional Source Comments The information contained in this document represents components of the legal health record. It is not the complete legal health record.[facility]
--- OUTSIDE RECORDS SUMMARY | 2024-12-07 05:39 | XMS_ITS | Encounter Summary ---
Author Organization [facility] Address [address] [place] [address] Phone Care Team Providers Care Junior Administrative Assistant Name Role Phone Agueda Ann MD Primary Care Provider [phone] Andie Rossi MD Unavailable [phone] West Doll MD Unavailable Britany Coles MD Unavailable Naun Hoang MD Unavailable + Agueda Ann MD Unavailable Latosha Garcia OT Unavailable [phone] Latosha Garcia OT Unavailable [phone] Mely Bhatti RN Unavailable [email or web address] Encounter Details Date Type Department Care Team (Late st Contact Info) Description 10/04/2019 Ancillary Orders [facility],Outside Imaging 30 [place] [address] System, Provider Not In, [facility] [employer] [address] [address] Social History Tobacco Use Types Packs/Day [...] documented as of this encounter Care Teams Junior Administrative Assistant Relationship Specialty Start Date End Date Agueda Ann MD [address] [address] PCP - General Family Medicine 02/01/19 Andie Rossi MD 48 [place] [address] Neurology 03/02/19 West Doll MD [address] [place] [address] 104 [place] [address] Cardiology 03/02/19 Britany Coles MD [address] [place] [address] 140 [place] [phone] [email or web address] [email or web address] Surgery 03/02/19 [place] [address] [place] [address] Infectious Diseases 03/02/19 Agueda Ann MD [address] [address] [email or web address] Insurance Assigned Provider 07/02/23 04/02/24 Latosha Garcia, OT 30 [place] [address] [email or web address] Transitions Career Development AssociateCommunications Controller Therapy 11/05/22 11/07/22 Latosha Garcia, OT 30 [place] [address] [email or web address] Transitions Career Development AssociateCommunications Controller Therapy 11/24/22 11/25/22 Mely Bhatti, NICOLE 30 [place] [address] [email or web address] Career Development Associate 05/12/23 06/09/23 documented as of this encounter Additional Source Comments The information contained in this document represents components of the legal health record. It is not the complete legal health record.[facility]
--- OUTSIDE RECORDS SUMMARY | 2024-12-07 05:39 | XMS_ITS | Encounter Summary ---
Author Organization [facility] Address [address] [place] [address] Phone Care Team Providers Care Senior Quantity Surveyor Name Role Phone Agueda Ann MD Primary Care Provider [phone] Andie Rossi MD Unavailable [phone] West Doll MD Unavailable Britany Coles MD Unavailable Naun Hoang MD Unavailable + Agueda Ann MD Unavailable Mely Bhatti RN Unavailable [email or web address] Encounter Details Date Type Department Care Team (Late st Contact Info) Description 12/24/2022 Procedure Pass [facility], [facility] 30 [place] [address] Social History Tobacco Use Types Packs/Day Years [...] high school, GED, job training, learning the Italian language, technical skills, or developing parenting skills)? [...] 12/24/2022 9:29 AM Natalya Menon, NICOLE * [place] Suicide Severity Rating Scale (Screener/Recent Self-Report) Question [...] documented as of this encounter Care Teams Senior Quantity Surveyor Relationship Specialty Start Date End Date Agueda Ann MD [address] [address] [email or web address] PCP - General Family Medicine 02/01/19 Andie Rossi MD [address] [place] [address] Neurology 03/02/19 West Doll MD [address] [place] [address] 104 [place] [address] Cardiology 03/02/19 Britany Coles MD [address] [place] [address] 140 [place] [phone] [email or web address] 03/02/19 Naun Hoang MD [address] [place] [address] Infectious Diseases 03/02/19 Agueda Ann MD [address] [address] [email or web address] Insurance Assigned Provider 4/6/24 1/6/25 Mely Bhatti, NICOLE [address] [place] [address] [email or web address] Porcelain Enameler 05/12/23 06/09/23 documented as of this encounter Additional Source Comments The information contained in this document represents components of the legal health record. It is not the complete legal health record.[facility]
[2024-12-07 05:42] LABS: Hematocrit 23.3 % (37.0-47.0); Hemoglobin 7.7 g/dl (12.0-16.0); Imm Gran Abs Auto 0.04 X10*3/uL (0.00-0.03); Imm Gran Pct Auto 0.5 % (0.0-0.4); Lymphocytes Absolute Auto 2.1 X10*3/uL (1.2-4.9); Mean Corpuscular HGB Conc 33.0 g/dl (31.0-35.0); Mean Corpuscular Hemoglobin 27.3 pg (27.0-33.0); Mean Corpuscular Volume 82.6 fL (80.0-98.0); NRBC Abs Auto 0.000 X10*3/uL (0.0-0.012); NRBC Pct Auto 0.0 /100WBC (0.0-0.2); Platelet Count 324 X10*3/uL (160-400); Red Blood Count 2.82 X10*6/uL (4.20-5.50); White Blood Count 7.8 X10*3/uL (4.8-10.8)
[2024-12-07 06:08] LABS: Anion Gap 12 (12-20); Blood Urea Nitrogen 44 mg/dL (9-16); Calcium 8.1 mg/dL (8.4-10.2); Carbon Dioxide 23 mmol/L (22-29); Chloride 110 mmol/L (96-108); Estimated Glomerular Filt Rate 34; Potassium 5.3 mmol/L (3.3-5.1); Sodium 140 mmol/L (135-145)
== END 2024-12-07 05:35 | disposition home or self-care (01) ==
LOC: HO.MMNH3L 05:34
PROVIDERS: Visit Provider Student in an Organized Health Care Education/Training Program
DX: G30.0 Alzheimer's disease with early onset (principal); C54.1 Malignant neoplasm of endometrium
CPT/HCPCS: 36415; 80048; 85025

== ENCOUNTER 2024-12-10 05:44 | Outpatient (REF) | payer MEDICARE, MEDICAID, SELFPAY ==
[2024-12-10 05:39] LABS: MANUAL DIFF FLAG NO
--- OUTSIDE RECORDS SUMMARY | 2024-12-10 05:48 | XMS_ITS | Clinical Summary ---
Author Organization [facility] Address [address] [place] [address] Phone Care Team Providers Care Organization Development Consultant Name Role Phone Ageuda Ann MD Primary Care Provider [phone] Andie Rossi MD Unavailable [phone] West Doll MD Unavailable [phone] Britany Coles MD Unavailable [phone] Naun Hoang MD Unavailable + Allergies No [...] mouth daily. 4 Active neomycin/bacitra negrito/polymyxinB (NEOSPORIN, ELY-CTM-AGHNF, TP) Apply 1 Application topically 2 (two) [...] 20 MG tabletIndication s:Coronary artery disease involving ekuk heart without angina pectoris, unspecified vessel or [...] an echo, and follow-up with her own stoker installation mechanic who is at [facility]. Acquired hypothyroidism 09/04/2020 Assessment & Plan (12/26/2022 [...] like to little and she is established [place] weight management so I like her to see the dog bather there she understands and agrees this plan Assessment & Plan (05/17/2019 12:35 PM EST): She is working out, tracking her caloric intake and sticking to nutrition plan although she is under eating. No clear etiology for her weight gain. Start taking levothyroxine separately from the other medications. Check labs today. Make follow-up with dog bather CAD (coronary artery disease) 03/02/2019 Overview (03/02/2019): h/o stent Assessment & Plan (12/26/2022 3:02 PM EDT): No active cp or acute concern -Continue box toe buffer -Continue aspirin, atorvastatin, Plavix, and Zetia Is [...] and chronic pain. Certainly would benefit from LAPPING MACHINE SET UP OPERATOR services and I have discussed with [...] pt can establish with someone new at [facility]. Assessment & Plan (01/21/2021 [...] mild stenosis of bilateral vertebral, MCA and AIDNA arteries. Multifocal degenerative changes of the cervical [...] and gait. She will be going to [facility] physical medicine and rehabilitation in [place] for this. IgG monoclonal gammopathy Assessment & Plan (03/02/2019 12:15 PM EST): Patient denies ever seeing hematology, has never heard this diagnosis and does not think that she has this. As I do not have records it is difficult for me to understand where this came from. I would like to review her [facility] records and if necessary [...] appt for Neuro muscular in Dec at [facility]). No further pain. F/u as needed Assessment [...] this topic Medical Devices Implanted Type Area Hydro Generation Supervisor Device Identifier Shelf Expiration Date Model / Serial / Lot Stent Supera 6fr 5.5mm 120mm 120cm .014in Otw Vascular Peripheral Nitinol Self Expanding Closed End Braided - [id number] Implanted:Qty: 1 on 11/18/2022 by David Mendez MD at [facility] Stent Sansan 04/27/2024 [id number] / / [id number] Cardiac Stent Neck Hardware Procedures Procedure Name [...] EST) SODIUM 137 133 - 146 mmol/L [facility] CHLORIDE 101 96 - 108 mmol/L [facility] POTASSIUM 4.1 3.3 - 5.1 mmol/L [facility] CO2 24 21 - 35 mmol/L [facility] BUN 27(H) 6 - 19 mg/dL [facility] CREATININE 0.50 0.5 - 1.5 mg/dL [facility] GLUCOSE 103(H) 70 - 99 mg/dL [facility] CALCIUM 9.0 8.4 - 10.3 mg/dL [facility] EGFR 103 >59 mL/min/1.7 3m2 [facility] Comment:Estimated glomerular filtration rate calculated using the CKD-EPI refit equation. ANION GAP 16 10 - 20 mmol/L [facility] Blood 05/23/2023 4:12 PM EST 05/23/2023 4:32 PM EST Mely Padron PA-C LAB BLOOD ORDERABLES Final R esult [address] [address] * (ABNORMAL) TSH with reflex (01/13/2023 7:58 AM EDT) TSH 0.03(L) 0.27 - 4.20 uIU/mL [facility] Blood 01/13/2023 7:58 AM EDT 01/13/2023 8:03 AM EDT Agueda Ann MD LAB BLOOD ORDERABLES Final Resul t Performing Organization Address City/[facility]/ZIP Co de Phone Number [address] [address] * (ABNORMAL) Lipid panel (12/25/2022 5:22 AM EDT) HDL 46 mg/dL [facility] Comment: Interpretation <40 mg/dL: Low HDL cholesterol (major risk factor for CHD) Greater than or equal to 60 mg/dL: High HDL cholesterol ( negative risk factor for CHD) HDL - cholesterol is affected by a number of factors, e.g. smoking, excerise, hormones, sex and age. CHOLESTEROL 98 0 - 240 mg/dL [facility] TRIGLYCERIDES 86 30 - 160 mg/dL [facility] LDL 35(L) 50 - 129 mg/dL [facility] Comment: LDL levels in terms of risk for coronary heart disease: <100 mg/dL: Optimal 100-129 mg/dL: Near or above optimal 130-159 mg/dL: Borderline high 160-189 mg/dL: High >190 mg/dL: Very High CARDIAC RISK RATIO 2.1(L) 3.3 - 4.4 C [facility] Blood 12/25/2022 5:22 AM EDT 12/25/2022 6:22 AM EDT us Kayley Ribera NP LAB BLOOD ORDERABLES Fi nal Result [address] [address] * MAMMOGRAPHY FOR RESULT ENTRY ONLY (07/07/2022) us Agueda Ann MD HEALTH MAINTENANCE Edited Result - Final from Last 3 Months or Most Recently Relevant to Health Maintenance Insurance MEDIC[place] PART [place] [facility] [place] & [facility] [place] & B [facility] MEDICARE PART A & [place] B [facility] Advance Directives For more information, please contact: [phone] (9AM - 5PM [facility], Tuesday-Tuesday) Documents on File Type Date Recorded Patient Hide Mill Worker Expl anation Healthcare Proxy 11/08/2022 6:36 PM [...] Code Status Confirmed With: Patient Care Teams Organization Development Consultant Relationship Specialty Start Date End Date Agueda Ann MD [address] [place] [address] PCP - General Family Medicine 02/01/19 Andie Rossi MD 48 [place] [address] Neurology 03/02/19 West Dlol MD [address] [place] [address] 104 [place] [address] Cardiology 03/02/19 Britany Coles MD [address] [place] [address] 140 [place] [address] [email or web address] 03/02/19 Naun Hoang MD [address] [address] Infectious Diseases 03/02/19 Additional Source Comments The information contained in this document represents components of the legal health record. It is not the complete legal health record.[facility]
--- OUTSIDE RECORDS SUMMARY | 2024-12-10 05:48 | XMS_ITS | Encounter Summary ---
Author Organization [facility] Address [address] [place] [address] Phone Care Team Providers Care Ordnance Handler Name Role Phone Agueda Ann MD Primary Care Provider [phone] Andie Rossi MD Unavailable West Doll MD Unavailable Britany Coles MD Unavailable Naun Hoang MD Unavailable + Agueda Ann MD Unavailable Mely Bhatti RN Unavailable [email or web address] Encounter Details Date Type Department Care Team (Late st Contact Info) Description 12/24/2022 Procedure Pass [facility], [facility] 30 [place] [address] Social History Tobacco Use Types Packs/Day Years [...] 12/24/2022 9:29 AM Natalya Menon, NICOLE * [place] Suicide Severity Rating Scale (Screener/Recent Self-Report) Question [...] documented as of this encounter Care Teams Ordnance Handler Relationship Specialty Start Date End Date Agueda Ann MD [address] [address] [email or web address] PCP - General Family Medicine 02/01/19 Andie Rossi MD [address] [place] [address] Neurology 03/02/19 West Doll MD [address] [place] [address] 104 [place] [address] Cardiology 03/02/19 Britany Coles MD [address] [place] [address] 140 [place] [phone] [email or web address] Surgery 03/02/19 Naun Hoang MD [address] [place] [address] Infectious Diseases 03/02/19 Agueda Ann MD [address] [address] [email or web address] Insurance Assigned Provider 4/6/24 1/6/25 Mely Bhatti, NICOLE [address] [place] [address] [email or web address] Assessment Director 05/12/23 06/09/23 documented as of this encounter Additional Source Comments The information contained in this document represents components of the legal health record. It is not the complete legal health record.[facility]
--- OUTSIDE RECORDS SUMMARY | 2024-12-10 05:48 | XMS_ITS | Clinical Summary ---
Author Organization [address] Address [address] [place] [phone] Care Team Providers Care Airfield Defence Guard Name Role Phone Unavailable Primary Care Provider [...]
--- OUTSIDE RECORDS SUMMARY | 2024-12-10 05:48 | XMS_ITS | Clinical Summary ---
Author Organization [facility] it Address [address] [place] [address] Care Team Providers Care Overhauler Helper Name Role Phone Unavailable Primary Care Provider Unavailabl e Immunizations Name Administration Dates Next Due Pfizer SARS-CoV-2 COVID-19, mRNA, LNP-S, preservative free 07/02/2020,06/07/2020 Surgical History Surgery Date Site/Laterality Comments NECK SURGERY PROCEDURE: HISTORICAL NECK SURGERY; COMMENT: spinal stenosis TONSILLECTOMY PROCEDURE: HISTORICAL TONSILLECTOMY CHOLECYSTECTOMY 09/1989 PROCEDURE: HISTORICAL CHOLECYSTECTOMY BREAST REDUCTION PROCEDURE: [place] BREAST REDUCTION ROBOTIC ASSISTED HYSTERECTOMY 03/05/14 PROCEDURE: [...]
--- OUTSIDE RECORDS SUMMARY | 2024-12-10 05:48 | XMS_ITS | Encounter Summary ---
Author Organization [facility] Address [address] [place] [address] Phone Care Team Providers Care Buyer Grain Name Role Phone Agueda Ann MD Primary Care Provider [phone] Andie Rossi MD Unavailable [phone] West Doll MD Unavailable [phone] Britany Coles MD Unavailable Naun Hoang MD Unavailable + Agueda Ann MD Unavailable Mely Bhatti RN Unavailable [email or web address] Encounter Details Date Type Department Care Team (Late st Contact Info) Description 12/24/2022 Procedure Pass [facility], [facility] 30 [place] [address] Social History Tobacco Use Types Packs/Day Years [...] high school, GED, job training, learning the Belarusian language, technical skills, or developing parenting skills)? [...] 12/24/2022 9:29 AM Natalya Menon, NICOLE * [place] Suicide Severity Rating Scale (Screener/Recent Self-Report) Question [...] documented as of this encounter Care Teams Buyer Grain Relationship Specialty Start Date End Date Agueda Ann MD [address] [address] [email or web address] PCP - General Family Medicine 02/01/19 Andie Rossi MD [address] [place] [address] Neurology 03/02/19 West Doll MD [address] [place] [address] 104 [place] [address] Cardiology 03/02/19 Britany Coles MD [address] [place] [address] 140 [place] [phone] [email or web address] 03/02/19 Naun Hoang MD [address] [place] [address] Infectious Diseases 03/02/19 Agueda Ann MD [address] [address] [email or web address] Insurance Assigned Provider 4/6/24 1/6/25 Mely Bhatti, NICOLE [address] [place] [address] [email or web address] Supervisor Fur Dressing 05/12/23 06/09/23 documented as of this encounter Additional Source Comments The information contained in this document represents components of the legal health record. It is not the complete legal health record.[facility]
--- OUTSIDE RECORDS SUMMARY | 2024-12-10 05:48 | XMS_ITS | Encounter Summary ---
Author Organization [facility] Address [address] [place] [address] Phone Care Team Providers Care Sql Dba Name Role Phone Agueda Ann MD Primary Care Provider [phone] Andie Rossi MD Unavailable West Doll MD Unavailable Britany Coles MD Unavailable Naun Hoang MD Unavailable + Agueda Ann MD Unavailable Latosha Garcia OT Unavailable Latosha Garcia OT Unavailable [phone] Mely Bhatti RN Unavailable [email or web address] Encounter Details Date Type Department Care Team (Late st Contact Info) Description 11/04/2022 Procedure Pass [facility] 30 [place] [address] Social History Tobacco Use Types Packs/Day Years [...] 11/04/2022 1:06 AM Lucita Hirsch, NICOLE * [place] Suicide Severity Rating Scale (Screener/Recent Self-Report) Question [...] documented as of this encounter Care Teams Sql Dba Relationship Specialty Start Date End Date Agueda Ann MD [address] [address] [email or web address] PCP - General Family Medicine 02/01/19 Andie Rossi MD [address] [place] [address] Neurology 03/02/19 West Doll MD [address] [place] [address] 104 [place] [address] Cardiology 03/02/19 Britany Coles MD [address] [place] [address] 140 [place] [phone] [email or web address] [email or web address] 03/02/19 Naun Hoang MD [address] [place] [address] Infectious Diseases 03/02/19 Agueda Ann MD [address] [address] [email or web address] Insurance Assigned Provider 07/02/23 04/02/24 Latosha Garcia, OT 30 [place] [address] [email or web address] Transitions Dip Unit OperatorRed Hat Linux Engineer Therapy 11/05/22 11/07/22 Latosha Garcia, OT 30 [place] [address] [email or web address] Transitions Dip Unit OperatorRed Hat Linux Engineer Therapy 11/24/22 11/25/22 Mely Bhatti RN 30 [place] [address] [email or web address] [email or web address] Dip Unit Operator 05/12/23 06/09/23 documented as of this encounter Additional Source Comments The information contained in this document represents components of the legal health record. It is not the complete legal health record.[facility]
--- OUTSIDE RECORDS SUMMARY | 2024-12-10 05:48 | XMS_ITS | Encounter Summary ---
Author Organization [employer] Address [address] [facility] 7t [place] [address] Care Team Providers Care Water/Wastewater Engineer Name Role Phone Unavailable Primary Care Provider Unavailabl e Encounter Details Date Type Department Care Team (Latest Contact Info) Description 07/09/2020 Abstract [facility] CONVERSIONS Dental, Provider, DDS Social History Tobacco [...]
--- OUTSIDE RECORDS SUMMARY | 2024-12-10 05:48 | XMS_ITS | Clinical Summary ---
Author Organization [employer] Address [address] [facility] 7t [place] [address] Care Team Providers Care Transmissions Systems Operator Name Role Phone Unavailable Primary Care [...] Most Recently Relevant to Health Maintenance Insurance [facility] MEDICAID STAND ADULT
--- OUTSIDE RECORDS SUMMARY | 2024-12-10 05:48 | XMS_ITS | Encounter Summary ---
Author Organization [employer] Address [address] [facility] 7t [place] [address] Care Team Providers Care Park Worker Supervisor Name Role Phone Unavailable Primary Care Provider Unavailabl e Encounter Details Date Type Department Care Team (Latest Contact Info) Description 06/29/2021 Abstract [facility] CONVERSIONS [...]
--- OUTSIDE RECORDS SUMMARY | 2024-12-10 05:48 | XMS_ITS | Patient Health Record ---
Author Organization [address] [place] [address] [address] [facility] Address [address] [id number] Care Team Providers Care Overlocker Name Role Phone BARTOLO Dunbar Supriya [phone] Reason For Referral No Information Plan Of Treatment No Information
--- OUTSIDE RECORDS SUMMARY | 2024-12-10 05:48 | XMS_ITS | Encounter Summary ---
Author Organization [facility] Address [address] [place] [address] Phone Care Team Providers Care Dental Hygiene Professor Name Role Phone Agueda Ann MD Primary Care Provider Andie Rossi MD Unavailable West Doll MD Unavailable Britany Coles MD Unavailable Naun Hoang MD Unavailable + Agueda Ann MD Unavailable Latosha Garcai OT Unavailable Latosha Garcia OT Unavailable [phone] Mely Bhatti RN Unavailable [email or web address] Encounter Details Date Type Department Care Team (Late st Contact Info) Description 07/31/2021 Procedure Pass [facility] Endoscopy Admitting Dept Virtual Department 30 [place] [address] Social History Tobacco Use Types Packs/Day Years [...] high school, GED, job training, learning the [place] language, technical skills, or developing parenting skills)? [...] documented as of this encounter Care Teams Dental Hygiene Professor Relationship Specialty Start Date End Date Agueda Ann MD [address] [place] [address] PCP - General Family Medicine 02/01/19 Andie Rossi MD [address] [place] [address] Neurology 03/02/19 West Doll MD [address] [place] [address] Cardiology 03/02/19 Britany Coles MD 175 [facility] 140 [place] [phone] [email or web address] [email or web address] Surgery 03/02/19 Naun Hoang MD 3300 [facility] 3C [place] [address] Infectious Diseases 03/02/19 Agueda Ann MD [address] [address] [email or web address] Insurance Assigned Provider 07/02/23 04/02/24 Latosha Garcia, OT 30 [place] [address] [email or web address] Transitions Esl ProfessorTwister Doffer Therapy 11/05/22 11/07/22 Latosha Garcia, OT 30 [place] [address] [email or web address] Transitions Esl ProfessorTwister Doffer Therapy 11/24/22 11/25/22 Mely Bhatti RN 30 [place] [address] [email or web address] iCMP Esl Professor 05/12/23 06/09/23 documented as of this encounter Additional Source Comments The information contained in this document represents components of the legal health record. It is not the complete legal health record.[facility]
--- OUTSIDE RECORDS SUMMARY | 2024-12-10 05:48 | XMS_ITS | Encounter Summary ---
Author Organization [facility] Address [address] [place] [address] Phone Care Team Providers Care Tuber Operator Name Role Phone Agueda Ann MD Primary Care Provider [phone] Andie Rossi MD Unavailable West Doll MD Unavailable Britany Coels MD Unavailable Naun Hoang MD Unavailable + Agueda Ann MD Unavailable Latosha Garcia OT Unavailable Mely Bhatti RN Unavailable [email or web address] Encounter Details Date Type Department Care Team (Late st Contact Info) Description 11/18/2022 Procedure Pass [facility] Cardiovascular And Interventional Radiology 30 [place] [address] Social History Tobacco Use Types Packs/Day Years [...] high school, GED, job training, learning the Irish language, technical skills, or developing parenting skills)? [...] documented as of this encounter Care Teams Tuber Operator Relationship Specialty Start Date End Date Agueda Ann MD [address] [place] [address] PCP - General Family Medicine 02/01/19 Andie Rossi MD 48 [place] [address] Neurology 03/02/19 West Doll MD [address] [place] [address] 104 [place] [address] Cardiology 03/02/19 Britany Coles MD [address] [facility] 140 [place] [phone] [email or web address] 03/02/19 [place] [address] [place] [address] Infectious Diseases 03/02/19 Agueda Ann MD [address] [address] [email or web address] Insurance Assigned Provider 07/02/23 04/02/24 Latosha Garcia, OT 30 [place] [address] [email or web address] Transitions Hair Or Beauty Salon ManagerCoding Support Specialist Therapy 11/24/22 11/25/22 Mely Bhatti, NICOLE 30 [place] [address] [email or web address] Hair Or Beauty Salon Manager 05/12/23 06/09/23 documented as of this encounter Additional Source Comments The information contained in this document represents components of the legal health record. It is not the complete legal health record.[facility]
--- OUTSIDE RECORDS SUMMARY | 2024-12-10 05:48 | XMS_ITS | Encounter Summary ---
Author Organization [employer] Address [address] [facility] 7t [place] [address] Care Team Providers Care Account Support Analyst Name Role Phone Unavailable Primary Care Provider Unavailabl e Encounter Details Date Type Department Care Team (Latest Contact Info) Description 05/02/2018 Abstract [facility] CONVERSIONS Dental, Provider, DDS Social History Tobacco [...]
--- OUTSIDE RECORDS SUMMARY | 2024-12-10 05:48 | XMS_ITS | Encounter Summary ---
Author Organization [employer] Address [address] [facility] 7t [place] [address] Care Team Providers Care Extrusion Operator Name Role Phone Unavailable Primary Care Provider Unavailabl e Reason for Visit * Reason Onset Date Comments medical clearance 05/27/2022 Encounter Details Date Type Department Care Team (Late st Contact Info) Description 05/27/2022 Telephone [facility] ADULT DENTAL [address] [place] [address] Davonte Cunningham DDS medical clearance Social History [...] was for medical clearance. Pls re send [phone] * Telephone Encounter - Lucina Leigh - [...] was for medical clearance. Pls re send [phone] documented in this encounter Plan of Treatment Not on file documented as of this encounter Visit Diagnoses Not on filedocumented in this encounter
--- OUTSIDE RECORDS SUMMARY | 2024-12-10 05:48 | XMS_ITS | Encounter Summary ---
Author Organization [facility] Address [address] [place] [address] Phone Care Team Providers Care Gristmill Operator Name Role Phone Agueda Ann MD Primary Care Provider [phone] Andie Rossi MD Unavailable [phone] West Doll MD Unavailable [phone] Britany Coles MD Unavailable Naun Hoang MD Unavailable + Agueda Ann MD Unavailable Mely Bhatti RN Unavailable [email or web address] Encounter Details Date Type Department Care Team (Late st Contact Info) Description 12/24/2022 Procedure Pass [facility], Ct Scan - [facility] 30 [place] [address] Social History Tobacco Use Types Packs/Day Years [...] high school, GED, job training, learning the Czech language, technical skills, or developing parenting skills)? [...] 9:29 AM ALEKT Natalya Delgadillo RN * [place] Suicide Severity Rating Scale (Screener/Recent Self-Report) Question [...] documented as of this encounter Care Teams Gristmill Operator Relationship Specialty Start Date End Date Agueda Ann MD [address] [address] [email or web address] PCP - General Family Medicine 02/01/19 Andie Rossi MD [address] [place] [address] Neurology 03/02/19 West Doll MD [address] [place] [address] 104 [place] [address] Cardiology 03/02/19 Britany Coles MD [address] [place] [address] 140 [place] [phone] [email or web address] Surgery 03/02/19 Naun Hoang MD [address] [place] [address] Infectious Diseases 03/02/19 Agueda Ann MD [address] [address] [email or web address] Insurance Assigned Provider 07/02/23 04/02/24 Mely Bhatti, NICOLE [address] [address] [email or web address] 05/12/23 06/09/23 documented as of this encounter Additional Source Comments The information contained in this document represents components of the legal health record. It is not the complete legal health record.[facility]
--- OUTSIDE RECORDS SUMMARY | 2024-12-10 05:49 | XMS_ITS | Encounter Summary ---
Author Organization [facility] Address [address] [place] [address] Phone Care Team Providers Care Filler Shaker Name Role Phone Agueda Ann MD Primary Care Provider [phone] Andie Rossi MD Unavailable West Doll MD Unavailable Britany Coles MD Unavailable [phone] Naun Hoang MD Unavailable + Agueda Ann MD Unavailable Mely Bhatti RN Unavailable [email or web address] Encounter Details Date Type Department Care Team (Late st Contact Info) Description 12/24/2022 Procedure Pass [facility], Ct Scan - [facility] 30 [place] [address] Social History Tobacco Use Types Packs/Day Years [...] 9:29 AM ALEKT Natalya Delgadillo RN * [place] Suicide Severity Rating Scale (Screener/Recent Self-Report) Question [...] documented as of this encounter Care Teams Filler Shaker Relationship Specialty Start Date End Date Agueda Ann MD [address] [address] [email or web address] PCP - General Family Medicine 02/01/19 Andie Rossi MD [address] [place] [address] Neurology 03/02/19 West Doll MD [address] [place] [address] 104 [place] [address] Cardiology 03/02/19 Britany Coles MD [address] [place] [address] 140 [place] [phone] [email or web address] Orthopedic Surgery 03/02/19 Naun Hoang MD [address] [place] [address] Infectious Diseases 03/02/19 Agueda Ann MD [address] [address] [email or web address] Insurance Assigned Provider 07/02/23 04/02/24 Mely Bhatti, NICOLE [address] [address] [email or web address] Lead Machinist 05/12/23 06/09/23 documented as of this encounter Additional Source Comments The information contained in this document represents components of the legal health record. It is not the complete legal health record.[facility]
--- OUTSIDE RECORDS SUMMARY | 2024-12-10 05:49 | XMS_ITS | Encounter Summary ---
Author Organization [facility] Address [address] [place] [address] Phone Care Team Providers Care Rv Detailer Name Role Phone Agueda Ann MD Primary Care Provider Andie Rossi MD Unavailable [phone] West Doll MD Unavailable [phone] Britany Coles MD Unavailable [phone] Naun Hoang MD Unavailable + Agueda Ann MD Unavailable Mely Bhatti RN Unavailable [email or web address] Encounter Details Date Type Department Care Team (Late st Contact Info) Description 12/25/2022 Procedure Pass [facility] [address] [place] [address] Social History Tobacco Use Types Packs/Day Years [...] high school, GED, job training, learning the Rwandan language, technical skills, or developing parenting skills)? [...] documented as of this encounter Care Teams Rv Detailer Relationship Specialty Start Date End Date Agueda Ann MD [address] [place] [address] [email or web address] PCP - General Family Medicine 02/01/19 Andie Rossi MD [address] [place] [address] Neurology 03/02/19 West Doll MD [address] [place] [address] 104 [place] [address] Cardiology 03/02/19 Britany Coles MD [address] [place] [address] 140 [place] [phone] Orthopedic Surgery 03/02/19 [place] [address] [place] [address] Infectious Diseases 03/02/19 Agueda Ann MD [address] [address] [email or web address] Insurance Assigned Provider 07/02/23 04/02/24 Mely Bhatti RN [address] [address] [email or web address] iC[employer] Wood Casket Assembler 05/12/23 06/09/23 documented as of this encounter Additional Source Comments The information contained in this document represents components of the legal health record. It is not the complete legal health record.[facility]
--- OUTSIDE RECORDS SUMMARY | 2024-12-10 05:49 | XMS_ITS | Encounter Summary ---
Author Organization [facility] Address [address] [place] [address] Phone Care Team Providers Care Emergency Physician Name Role Phone Agueda Ann MD Primary Care Provider [phone] Andie Rossi MD Unavailable [phone] West Doll MD Unavailable Britany Coles MD Unavailable [phone] Naun Hoang MD Unavailable + Agueda Ann MD Unavailable Mely Bhatti RN Unavailable [email or web address] Encounter Details Date Type Department Care Team (Late st Contact Info) Description 12/24/2022 Procedure Pass [facility] 30 [place] [address] Social History Tobacco Use Types Packs/Day Years [...] high school, GED, job training, learning the Kinyarwanda language, technical skills, or developing parenting skills)? [...] 12/24/2022 9:29 AM Natalya Menon, NICOLE * [place] Suicide Severity Rating Scale (Screener/Recent Self-Report) Question [...] documented as of this encounter Care Teams Emergency Physician Relationship Specialty Start Date End Date Agueda Ann MD [address] [address] [email or web address] PCP - General Family Medicine 02/01/19 Andie Rossi MD [address] [place] [address] Neurology 03/02/19 West Doll MD [address] [place] [address] 104 [place] [address] Cardiology 03/02/19 Britany Coles MD [address] [place] [address] 140 [place] [phone] [email or web address] [email or web address] Surgery 03/02/19 Naun Hoang MD [address] [place] [address] Infectious Diseases 03/02/19 Agueda Ann MD [address] [address] [email or web address] Insurance Assigned Provider 4/6/24 1/6/25 Mely Bhatti, NICOLE [address] [place] [address] [email or web address] iCMP Chemical Engineering Teacher 05/12/23 06/09/23 documented as of this encounter Additional Source Comments The information contained in this document represents components of the legal health record. It is not the complete legal health record.[facility]
--- OUTSIDE RECORDS SUMMARY | 2024-12-10 05:49 | XMS_ITS | Encounter Summary ---
Author Organization [facility] Address [address] [place] [address] Phone Care Team Providers Care Geospatial Scientist Name Role Phone Agueda Ann MD Primary Care Provider [phone] Andie Rossi MD Unavailable West Doll MD Unavailable Britany Coles MD Unavailable [phone] Naun Hoang MD Unavailable + Agueda Ann MD Unavailable Latosha Garcia OT Unavailable [phone] Latosha Garcia OT Unavailable [phone] Mely Bhatti RN Unavailable [email or web address] Encounter Details Date Type Department Care Team (Late st Contact Info) Description 10/04/2019 Ancillary Orders [facility],Outside Imaging 30 [place] [address] System, Provider Not In, [facility] Partners [address] [address] Social History Tobacco Use Types Packs/Day Years [...] documented as of this encounter Care Teams Geospatial Scientist Relationship Specialty Start Date End Date Agueda Ann MD [address] [address] PCP - General Family Medicine 02/01/19 Andie Rossi MD 48 [place] [address] Neurology 03/02/19 West Doll MD [address] [place] [address] 104 [place] [address] Cardiology 03/02/19 Britany Coles MD [address] [place] [address] 140 [place] [phone] [email or web address] 03/02/19 [place] [address] [place] [address] Infectious Diseases 03/02/19 Agueda Ann MD [address] [address] [email or web address] Insurance Assigned Provider 07/02/23 04/02/24 Latosha Garcia, OT 30 [place] [address] [email or web address] Transitions Tax EvaluatorPermastone Installer Therapy 11/05/22 11/07/22 Latosha Garcia, OT 30 [place] [address] [email or web address] Transitions Tax EvaluatorPermastone Installer Therapy 11/24/22 11/25/22 Mely Bhatti, NICOLE 30 [place] [address] [email or web address] iCMP Tax Evaluator 05/12/23 06/09/23 documented as of this encounter Additional Source Comments The information contained in this document represents components of the legal health record. It is not the complete legal health record.[facility]
--- OUTSIDE RECORDS SUMMARY | 2024-12-10 05:49 | XMS_ITS | Encounter Summary ---
Author Organization [facility] Address [address] [place] [address] Phone Care Team Providers Care Diamond Grinder Name Role Phone Agueda Ann MD Primary Care Provider [phone] Andie Rossi MD Unavailable West Doll MD Unavailable Britany Coles MD Unavailable [phone] Naun Hoang MD Unavailable + Agueda Ann MD Unavailable Mely Bhatti RN Unavailable [email or web address] Encounter Details Date Type Department Care Team (Late st Contact Info) Description 12/24/2022 Procedure Pass [facility] 30 [place] [address] Social History Tobacco Use Types Packs/Day Years [...] high school, GED, job training, learning the Maltese language, technical skills, or developing parenting skills)? [...] 12/24/2022 9:29 AM Natalya Menon, NICOLE * [place] Suicide Severity Rating Scale (Screener/Recent Self-Report) Question [...] documented as of this encounter Care Teams Diamond Grinder Relationship Specialty Start Date End Date Agueda Ann MD [address] [address] [email or web address] PCP - General Family Medicine 02/01/19 Andie Rossi MD [address] [place] [address] Neurology 03/02/19 West Doll MD [address] [place] [address] 104 [place] [address] Cardiology 03/02/19 Britany Coles MD [address] [place] [address] 140 [place] [address] [email or web address] Orthopedic Surgery 03/02/19 Naun Hoang MD [address] [place] [address] Infectious Diseases 03/02/19 Agueda Ann MD [address] [address] [email or web address] Insurance Assigned Provider 4/6/24 1/6/25 Mely Bhatti, NICOLE [address] [place] [address] [email or web address] iCMP Plant Packer 05/12/23 06/09/23 documented as of this encounter Additional Source Comments The information contained in this document represents components of the legal health record. It is not the complete legal health record.[facility]
--- OUTSIDE RECORDS SUMMARY | 2024-12-10 05:49 | XMS_ITS | Encounter Summary ---
Author Organization [facility] Address [address] [place] [address] Phone Care Team Providers Care Optical Mechanic Name Role Phone Agueda Ann MD Primary Care Provider [phone] Andie Rossi MD Unavailable [phone] West Doll MD Unavailable Britany Coles MD Unavailable Naun Hoang MD Unavailable + Agueda Ann MD Unavailable Mely Bhatti RN Unavailable [email or web address] Encounter Details Date Type Department Care Team (Late st Contact Info) Description 12/25/2022 Procedure Pass Non-Invasive Cardiology 30 [place] [address] Social History Tobacco Use Types Packs/Day Years [...] documented as of this encounter Care Teams Optical Mechanic Relationship Specialty Start Date End Date Agueda Ann MD [address] [place] [address] [email or web address] PCP - General Family Medicine 02/01/19 Andie Rossi MD 48 [place] [address] Neurology 03/02/19 West Doll MD [address] [place] [address] 104 [place] [address] Cardiology 03/02/19 Britany Coles MD [address] [place] [address] 140 [place] [phone] Orthopedic Surgery 03/02/19 [place] [address] [place] [address] Infectious Diseases 03/02/19 Agueda Ann MD [address] [address] [email or web address] Insurance Assigned Provider 07/02/23 04/02/24 Mely Bhatti RN [address] [address] [email or web address] iCMP Mechanical Maintenance Foreman 05/12/23 06/09/23 documented as of this encounter Additional Source Comments The information contained in this document represents components of the legal health record. It is not the complete legal health record.[facility]
[2024-12-10 06:21] LABS: Hematocrit 28.2 % (37.0-47.0); Hemoglobin 8.8 g/dl (12.0-16.0); Imm Gran Abs Auto 0.04 X10*3/uL (0.00-0.03); Imm Gran Pct Auto 0.4 % (0.0-0.4); Lymphocytes Absolute Auto 2.2 X10*3/uL (1.2-4.9); Mean Corpuscular HGB Conc 31.2 g/dl (31.0-35.0); Mean Corpuscular Hemoglobin 26.1 pg (27.0-33.0); Mean Corpuscular Volume 83.7 fL (80.0-98.0); NRBC Abs Auto 0.000 X10*3/uL (0.0-0.012); NRBC Pct Auto 0.0 /100WBC (0.0-0.2); Platelet Count 338 X10*3/uL (160-400); Red Blood Count 3.37 X10*6/uL (4.20-5.50); White Blood Count 10.6 X10*3/uL (4.8-10.8)
[2024-12-10 06:53] LABS: Anion Gap 13 (12-20); Blood Urea Nitrogen 26 mg/dL (9-16); Calcium 8.5 mg/dL (8.4-10.2); Carbon Dioxide 23 mmol/L (22-29); Chloride 108 mmol/L (96-108); Estimated Glomerular Filt Rate 54; Potassium 4.6 mmol/L (3.3-5.1); Sodium 139 mmol/L (135-145)
== END 2024-12-10 05:45 | disposition home or self-care (01) ==
LOC: HO.MMNH3L 05:44
PROVIDERS: Visit Provider Student in an Organized Health Care Education/Training Program
DX: I25.9 Chronic ischemic heart disease, unspecified (principal); I69.398 Other sequelae of cerebral infarction; E03.9 Hypothyroidism, unspecified; Z89.611 Acquired absence of right leg above knee
CPT/HCPCS: 36415; 80048; 85025

== ENCOUNTER 2024-12-11 05:33 | Outpatient (REF) | payer MEDICARE, MEDICAID, SELFPAY ==
--- OUTSIDE RECORDS SUMMARY | 2024-12-11 05:36 | XMS_ITS | Encounter Summary ---
Author Organization [facility] Address [address] [place] [address] Phone Care Team Providers Care Geriatric Psychiatrist Name Role Phone Agueda Ann MD Primary Care Provider Andie Rossi MD Unavailable [phone] West Doll MD Unavailable Britany Coles MD Unavailable Naun Hoang MD Unavailable + Ageuda Ann MD Unavailable Latosha Garcia OT Unavailable [phone] Mely Bhatti RN Unavailable [email or web address] Encounter Details Date Type Department Care Team (Late st Contact Info) Description 11/18/2022 Procedure Pass [facility] 30 [place] [address] Social History Tobacco Use Types Packs/Day Years [...] high school, GED, job training, learning the Amharic language, technical skills, or developing parenting skills)? [...] documented as of this encounter Care Teams Geriatric Psychiatrist Relationship Specialty Start Date End Date Agueda Ann MD [address] [place] [address] PCP - General Family Medicine 02/01/19 Andie Rossi MD 48 [place] [address] Neurology 03/02/19 West Doll MD [address] [place] [address] 104 [place] [address] Cardiology 03/02/19 Britany Coles MD 175 [facility] 140 [place] [address] [email or web address] 03/02/19 [place] [address] [place] [address] Infectious Diseases 03/02/19 Agueda Ann MD [address] [address] [email or web address] Insurance Assigned Provider 07/02/23 04/02/24 Latosha Garcia, OT 30 [place] [address] [email or web address] Transitions Certified Composites TechnicianMeter Reading Clerk Therapy 11/24/22 11/25/22 Mely Bhatti, NICOLE 30 [place] [address] [email or web address] iCMP Certified Composites Technician 05/12/23 06/09/23 documented as of this encounter Additional Source Comments The information contained in this document represents components of the legal health record. It is not the complete legal health record.[facility]
--- OUTSIDE RECORDS SUMMARY | 2024-12-11 05:36 | XMS_ITS | Encounter Summary ---
Author Organization [employer] Address [address] [facility] 7t [place] [address] Care Team Providers Care Thoracic Medicine Specialist Name Role Phone Unavailable Primary Care Provider Unavailabl e Encounter Details Date Type Department Care Team (Latest Contact Info) Description 07/09/2020 Abstract [facility] CONVERSIONS Dental, Provider, DDS Social History [...]
--- OUTSIDE RECORDS SUMMARY | 2024-12-11 05:36 | XMS_ITS | Patient Health Record ---
Author Organization [address] [place] [address] [address] [facility] Address [address] [id number] Care Team Providers Care Crossword Puzzle Maker Name Role Phone BARTOLO Dunbar Supriya [phone] Reason For Referral No Information Plan Of Treatment No Information
--- OUTSIDE RECORDS SUMMARY | 2024-12-11 05:36 | XMS_ITS | Encounter Summary ---
Author Organization [employer] Address [address] [facility] [address] 7t [place] [address] Care Team Providers Care Manufacturer Agent Name Role Phone Unavailable Primary Care Provider Unavailabl e Reason for Visit * Reason Onset Date Comments medical clearance 05/27/2022 Encounter Details Date Type Department Care Team (Late st Contact Info) Description 05/27/2022 Telephone [facility] ADULT DENTAL [address] [place] [address] Davonte Cunningham DDS medical clearance Social History [...] was for medical clearance. Pls re send [phone] * Telephone Encounter - Lucina Leigh - [...] was for medical clearance. Pls re send [phone] documented in this encounter Plan of Treatment Not on file documented as of this encounter Visit Diagnoses Not on filedocumented in this encounter
--- OUTSIDE RECORDS SUMMARY | 2024-12-11 05:36 | XMS_ITS | Clinical Summary ---
Author Organization [employer] Address [address] [facility] 7t [place] [address] Care Team Providers Care Buffing Wheel Former Automatic Name Role Phone Unavailable Primary Care Provider [...] Recently Relevant to Health Maintenance Insurance [facility] MEDICAID STAND ADULT
--- OUTSIDE RECORDS SUMMARY | 2024-12-11 05:36 | XMS_ITS | Clinical Summary ---
Author Organization [address] Address [address] [place] [id number] Care Team Providers Care Bull Bucker Name Role Phone Unavailable Primary Care Provider [...]
--- OUTSIDE RECORDS SUMMARY | 2024-12-11 05:36 | XMS_ITS | Encounter Summary ---
Author Organization [facility] Address [address] [place] [address] Phone Care Team Providers Care Denture Model Maker Name Role Phone Agueda Ann MD Primary Care Provider [phone] Andie Rossi MD Unavailable West Doll MD Unavailable [phone] Britany Coles MD Unavailable Naun Hoang MD Unavailable + Agueda Ann MD Unavailable Latosha Garcia OT Unavailable Latosha Garcia OT Unavailable [phone] Mely Bhatti RN Unavailable [email or web address] Encounter Details Date Type Department Care Team (Late st Contact Info) Description 11/04/2022 Procedure Pass [facility] 30 [place] [address] Social History Tobacco Use Types Packs/Day Years [...] high school, GED, job training, learning the Cuban language, technical skills, or developing parenting skills)? [...] 11/04/2022 1:06 AM Lucita Hirsch, NICOLE * [place] Suicide Severity Rating Scale (Screener/Recent Self-Report) Question [...] documented as of this encounter Care Teams Denture Model Maker Relationship Specialty Start Date End Date Agueda Ann MD [address] [address] [email or web address] PCP - General Family Medicine 02/01/19 Andie Rossi MD [address] [place] [address] Neurology 03/02/19 West Doll MD [address] [place] [address] 104 [place] [address] Cardiology 03/02/19 Britany Coles MD [address] [place] [address] 140 [place] [phone] [email or web address] 03/02/19 Naun Hoang MD [address] [place] [address] Infectious Diseases 03/02/19 Agueda Ann MD [address] [address] [email or web address] Insurance Assigned Provider 07/02/23 04/02/24 Latosha Garcia, OT 30 [place] [address] [email or web address] Transitions Loading SupervisorIndustrial Boilermaker Therapy 11/05/22 11/07/22 Latosha Garcia, OT 30 [place] [address] [email or web address] Transitions Loading SupervisorIndustrial Boilermaker Therapy 11/24/22 11/25/22 Mely Bhatti RN 30 [place] [address] [email or web address] Loading Supervisor 05/12/23 06/09/23 documented as of this encounter Additional Source Comments The information contained in this document represents components of the legal health record. It is not the complete legal health record.[facility]
--- OUTSIDE RECORDS SUMMARY | 2024-12-11 05:36 | XMS_ITS | Encounter Summary ---
Author Organization [employer] Address 75 [facility] 7t [place] [address] Care Team Providers Care Switcher Name Role Phone Unavailable Primary Care Provider Unavailabl e Encounter Details Date Type Department Care Team (Latest Contact Info) Description 06/29/2021 Abstract [facility] CONVERSIONS Dental, Provider, DDS Social [...]
--- OUTSIDE RECORDS SUMMARY | 2024-12-11 05:36 | XMS_ITS | Encounter Summary ---
Author Organization [employer] Address 75 [facility] 7t [place] [address] Care Team Providers Care Sterile Technician Name Role Phone Unavailable Primary Care Provider Unavailabl e Encounter Details Date Type Department Care Team (Latest Contact Info) Description 05/02/2018 Abstract [facility] CONVERSIONS Dental, Provider, DDS Social History Tobacco [...]
--- OUTSIDE RECORDS SUMMARY | 2024-12-11 05:36 | XMS_ITS | Clinical Summary ---
Author Organization [facility] it Address [address] [place] [address] Care Team Providers Care Office Technology Professor Name Role Phone Unavailable Primary Care Provider Unavailabl e Immunizations Name Administration Dates Next Due Pfizer SARS-CoV-2 COVID-19, mRNA, LNP-S, preservative free 07/02/2020,06/07/2020 Surgical History Surgery Date Site/Laterality Comments NECK SURGERY PROCEDURE: HISTORICAL NECK SURGERY; COMMENT: spinal stenosis TONSILLECTOMY PROCEDURE: HISTORICAL TONSILLECTOMY CHOLECYSTECTOMY 09/1989 PROCEDURE: HISTORICAL CHOLECYSTECTOMY BREAST REDUCTION PROCEDURE: [place] BREAST REDUCTION ROBOTIC ASSISTED HYSTERECTOMY 03/05/14 PROCEDURE: [...]
--- OUTSIDE RECORDS SUMMARY | 2024-12-11 05:37 | XMS_ITS | Encounter Summary ---
Author Organization [facility] Address [address] [place] [address] Phone Care Team Providers Care Cabin Man Name Role Phone Agueda Ann MD Primary Care Provider [phone] Andie Rossi MD Unavailable [phone] West Doll MD Unavailable Britany Coles MD Unavailable [phone] Naun Hoang MD Unavailable + Agueda Ann MD Unavailable Mely Bhatti RN Unavailable [email or web address] Encounter Details Date Type Department Care Team (Late st Contact Info) Description 12/25/2022 Procedure Pass Non-Invasive Cardiology 30 [place] [address] Social History Tobacco Use Types Packs/Day Years [...] high school, GED, job training, learning the Nigerien language, technical skills, or developing parenting skills)? [...] documented as of this encounter Care Teams Cabin Man Relationship Specialty Start Date End Date Agueda Ann MD [address] [place] [address] [email or web address] PCP - General Family Medicine 02/01/19 Andie Rossi MD [address] [place] [address] Neurology 03/02/19 West Doll MD [address] [place] [address] 104 [place] [address] Cardiology 03/02/19 Britany Coles MD [address] [place] [address] 140 [place] [phone] Orthopedic Surgery 03/02/19 [place] [address] [place] [address] Infectious Diseases 03/02/19 Agueda Ann MD [address] [address] [email or web address] Insurance Assigned Provider 07/02/23 04/02/24 Mely Bhatti RN [address] [address] [email or web address] iCMP Yeast Cake Cutter 05/12/23 06/09/23 documented as of this encounter Additional Source Comments The information contained in this document represents components of the legal health record. It is not the complete legal health record.[facility]
--- OUTSIDE RECORDS SUMMARY | 2024-12-11 05:37 | XMS_ITS | Encounter Summary ---
Author Organization [facility] Address [address] [place] [address] Phone Care Team Providers Care English Adjunct Faculty Name Role Phone Agueda Ann MD Primary Care Provider [phone] Andie Rossi MD Unavailable [phone] West Doll MD Unavailable [phone] Britany Coles MD Unavailable [phone] Naun Hoang MD Unavailable + Agueda Ann MD Unavailable Mely Bhatti RN Unavailable [email or web address] Encounter Details Date Type Department Care Team (Late st Contact Info) Description 12/25/2022 Procedure Pass [facility] [address] [place] [address] Social History Tobacco Use Types Packs/Day Years [...] high school, GED, job training, learning the Guamanian language, technical skills, or developing parenting skills)? [...] documented as of this encounter Care Teams English Adjunct Faculty Relationship Specialty Start Date End Date Agueda Ann MD [address] [place] [address] [email or web address] PCP - General Family Medicine 02/01/19 Andie Rossi MD [address] [place] [address] Neurology 03/02/19 West Doll MD [address] [place] [address] 104 [place] [address] Cardiology 03/02/19 Britayn Coles MD [address] [place] [address] 140 [place] [address] Orthopedic Surgery 03/02/19 [place] [address] [place] [address] Infectious Diseases 03/02/19 Agueda Ann MD [address] [address] [email or web address] Insurance Assigned Provider 07/02/23 04/02/24 Mely Bhatti RN [address] [address] [email or web address] iCMP Felt Cutter 05/12/23 06/09/23 documented as of this encounter Additional Source Comments The information contained in this document represents components of the legal health record. It is not the complete legal health record.[facility]
--- OUTSIDE RECORDS SUMMARY | 2024-12-11 05:37 | XMS_ITS | Encounter Summary ---
Author Organization [facility] Address [address] [place] [address] Phone Care Team Providers Care Hr Leader Name Role Phone Agueda Ann MD Primary Care Provider [phone] Andie Rossi MD Unavailable [phone] West Doll MD Unavailable Britany Coles MD Unavailable [phone] Naun Hoang MD Unavailable + Agueda Ann MD Unavailable Mely Bhatti RN Unavailable [email or web address] Encounter Details Date Type Department Care Team (Late st Contact Info) Description 12/24/2022 Procedure Pass [facility], [facility] [address] [place] [address] Social History Tobacco Use Types Packs/Day Years [...] high school, GED, job training, learning the Frisian language, technical skills, or developing parenting skills)? [...] 9:29 AM ALEKT Natalya Delgadillo RN * [place] Suicide Severity Rating Scale (Screener/Recent Self-Report) Question [...] documented as of this encounter Care Teams Hr Leader Relationship Specialty Start Date End Date Agueda Ann MD [address] [address] [email or web address] PCP - General Family Medicine 02/01/19 Andie Rossi MD [address] [place] [address] Neurology 03/02/19 West Doll MD [address] [place] [address] 104 [place] [address] Cardiology 03/02/19 Britany Coles MD [address] [place] [address] 140 [place] [address] [email or web address] [email or web address] Surgery 03/02/19 Naun Hoang MD [address] [place] [address] Infectious Diseases 03/02/19 Agueda Ann MD [address] [address] [email or web address] Insurance Assigned Provider 07/02/23 04/02/24 Mely Bhatti, NICOLE [address] [address] [email or web address] Management Director 05/12/23 06/09/23 documented as of this encounter Additional Source Comments The information contained in this document represents components of the legal health record. It is not the complete legal health record.[facility]
--- OUTSIDE RECORDS SUMMARY | 2024-12-11 05:37 | XMS_ITS | Encounter Summary ---
Author Organization [facility] Address [address] [place] [address] Phone Care Team Providers Care Evening Sitter Name Role Phone Agueda Ann MD Primary Care Provider [phone] Andie Rossi MD Unavailable West Doll MD Unavailable [phone] Britany Coles MD Unavailable Naun Hoang MD Unavailable + Agueda Ann MD Unavailable Mely Bhatti RN Unavailable [email or web address] Encounter Details Date Type Department Care Team (Late st Contact Info) Description 12/24/2022 Procedure Pass [facility] 30 [place] [address] Social History Tobacco Use Types Packs/Day Years [...] high school, GED, job training, learning the Yakut language, technical skills, or developing parenting skills)? [...] 12/24/2022 9:29 AM Natalya Menon, NICOLE * [place] Suicide Severity Rating Scale (Screener/Recent Self-Report) Question [...] documented as of this encounter Care Teams Evening Sitter Relationship Specialty Start Date End Date Agueda Ann MD [address] [address] [email or web address] PCP - General Family Medicine 02/01/19 Andie Rossi MD [address] [place] [address] Neurology 03/02/19 West Doll MD [address] [place] [address] 104 [place] [address] Cardiology 03/02/19 Britany Coles MD [address] [place] [address] 140 [place] [phone] [email or web address] [email or web address] Surgery 03/02/19 Naun Hoang MD [address] [place] [address] Infectious Diseases 03/02/19 Agueda Ann MD [address] [address] [email or web address] Insurance Assigned Provider 4/6/24 1/6/25 Mely Bhatti, NICOLE [address] [place] [address] [email or web address] Heat And Frost Insulator 05/12/23 06/09/23 documented as of this encounter Additional Source Comments The information contained in this document represents components of the legal health record. It is not the complete legal health record.[facility]
--- OUTSIDE RECORDS SUMMARY | 2024-12-11 05:37 | XMS_ITS | Encounter Summary ---
Author Organization [facility] Address [address] [place] [address] Phone Care Team Providers Care Composite Engineer Name Role Phone Agueda Ann MD Primary Care Provider [phone] Andie Rossi MD Unavailable [phone] West Doll MD Unavailable Britany Coles MD Unavailable Naun Hoang MD Unavailable + Agueda Ann MD Unavailable Mely Bhatti RN Unavailable [email or web address] Encounter Details Date Type Department Care Team (Late st Contact Info) Description 12/24/2022 Procedure Pass [facility], [facility] 30 [place] [address] Social History Tobacco Use Types Packs/Day Years [...] 12/24/2022 9:29 AM Natalya Menon, NICOLE * [place] Suicide Severity Rating Scale (Screener/Recent Self-Report) Question [...] documented as of this encounter Care Teams Composite Engineer Relationship Specialty Start Date End Date Agueda Ann MD [address] [address] [email or web address] PCP - General Family Medicine 02/01/19 Andie Rossi MD [address] [place] [address] Neurology 03/02/19 West Doll MD [address] [place] [address] 104 [place] [address] Cardiology 03/02/19 Britany Coles MD [address] [place] [address] 140 [place] [address] [email or web address] [email or web address] Surgery 03/02/19 Naun Hoang MD [address] [place] [address] Infectious Diseases 03/02/19 Agueda Ann MD [address] [address] [email or web address] Insurance Assigned Provider 4/6/24 1/6/25 Mely Bhatti, NICOLE [address] [place] [address] [email or web address] Production Coordinator 05/12/23 06/09/23 documented as of this encounter Additional Source Comments The information contained in this document represents components of the legal health record. It is not the complete legal health record.[facility]
--- OUTSIDE RECORDS SUMMARY | 2024-12-11 05:37 | XMS_ITS | Encounter Summary ---
Author Organization [facility] Address [address] [place] [address] Phone Care Team Providers Care Laborer Golf Course Name Role Phone Agueda Ann MD Primary Care Provider [phone] Andie Rossi MD Unavailable West Doll MD Unavailable Britany Coles MD Unavailable Naun Hoang MD Unavailable + Agueda Ann MD Unavailable Mely Bhatti RN Unavailable [email or web address] Encounter Details Date Type Department Care Team (Late st Contact Info) Description 12/24/2022 Procedure Pass [facility], [facility] 30 [place] [address] Social History Tobacco Use Types Packs/Day Years [...] 12/24/2022 9:29 AM Natalya Menon, NICOLE * [place] Suicide Severity Rating Scale (Screener/Recent Self-Report) Question [...] documented as of this encounter Care Teams Laborer Golf Course Relationship Specialty Start Date End Date Agueda Ann MD [address] [address] [email or web address] PCP - General Family Medicine 02/01/19 Andie Rossi MD [address] [place] [address] Neurology 03/02/19 West Doll MD [address] [place] [address] 104 [place] [address] Cardiology 03/02/19 Britany Coles MD [address] [place] [address] 140 [place] [address] [email or web address] [email or web address] Surgery 03/02/19 Naun Hoang MD [address] [place] [address] Infectious Diseases 03/02/19 Agueda Ann MD [address] [address] [email or web address] Insurance Assigned Provider 4/6/24 1/6/25 Mely Bhatti, NICOLE [address] [place] [address] [email or web address] Tipple Greaser 05/12/23 06/09/23 documented as of this encounter Additional Source Comments The information contained in this document represents components of the legal health record. It is not the complete legal health record.[facility]
--- OUTSIDE RECORDS SUMMARY | 2024-12-11 05:37 | XMS_ITS | Clinical Summary ---
Author Organization [facility] Address [address] [place] [address] Phone Care Team Providers Care Eligibility And Occupancy Interviewer Name Role Phone Agueda Ann MD Primary Care Provider [phone] Andie Rossi MD Unavailable [phone] West Doll MD Unavailable [phone] Britany Coles MD Unavailable Naun Hoang MD [...] mouth daily. 4 Active neomycin/bacitra negrito/polymyxinB (NEOSPORIN, JRI-FCO-QACOD, TP) Apply 1 Application topically 2 (two) [...] 20 MG tabletIndication s:Coronary artery disease involving [place] heart without angina pectoris, unspecified vessel or [...] an echo, and follow-up with her own search engine optimization specialist who is at [facility]. Acquired hypothyroidism 09/04/2020 Assessment & Plan (12/26/2022 [...] like to little and she is established [facility] weight [facility] so I like her to see the english composition instructor there she understands and agrees this plan Assessment & Plan (05/17/2019 12:35 PM EST): She is working out, tracking her caloric intake and sticking to nutrition plan although she is under eating. No clear etiology for her weight gain. Start taking levothyroxine separately from the other medications. Check labs today. Make follow-up with english composition instructor CAD (coronary artery disease) 03/02/2019 Overview (03/02/2019): h/o stent Assessment & Plan (12/26/2022 3:02 PM EDT): No active cp or acute concern -Continue embroidery specialist -Continue aspirin, atorvastatin, Plavix, and Zetia Is [...] and chronic pain. Certainly would benefit from CRIME LAB TECHNICIAN services and I have discussed with pt [...] pt can establish with someone new at [facility]. Assessment & Plan (01/21/2021 12:34 PM [...] and gait. She will be going to [facility] and [facility] [place] for this. IgG monoclonal gammopathy Assessment & Plan (03/02/2019 12:15 PM EST): Patient denies ever seeing hematology, has never heard this diagnosis and does not think that she has this. As I do not have records it is difficult for me to understand where this came from. I would like to review her [facility] records and if necessary we will [...] appt for Neuro muscular in Dec at [facility]). No further pain. F/u as needed Assessment [...] INITIAL (ONE-TIME) 07/23/2020 DEPRESSION SCREENING 01/20/2022 01/20/2021 BLOOD PRESSURE 11/29/2023 05/29/2023 LIPID PANEL 12/26/2023 12/25/2022, 0803/2022, 01/27/2022, Additional history exists TSH LEVEL 01/14/2024 01/13/2023, 11/28, 08/10/2022, Additional history exists CREATININE LEVEL 05/23/2024 05/23/2023, 06/2023, 02/02/2023, Additional history exists POTASSIUM LEVEL 05/23/2024 05/23/2023, 1004/2022, 12/25/2022, Additional history exists MAMMOGRAM 07/07/2024 07/07/2022, 0408/2021, 06/30/2020, Additional history exists INFLUENZA VACCINE (#1) 2024 , 12/09/2021, 12/09/2021, Additional history exists COVID-19 VACCINE ( season) 2024 02/06/2023, 12/31/2021, 08/03/2021, Additional history exists SCREENING FOR DIABETES 05/23/2026 [...] this topic Medical Devices Implanted Type Area Risk Officer Device Identifier Shelf Expiration Date Model / Serial / Lot Stent Supera 6fr 5.5mm 120mm 120cm .014in Otw Vascular Peripheral Nitinol Self Expanding Closed End Braided - [id number] Implanted:Qty: 1 on 11/18/2022 by aDvid Mendez MD at [facility] Stent [employer]oves 04/27/2024 [id number] / / [id number] Cardiac Stent Neck Hardware Procedures Procedure Name [...] EST) SODIUM 137 133 - 146 mmol/L [facility] CHLORIDE 101 96 - 108 mmol/L [facility] POTASSIUM 4.1 3.3 - 5.1 mmol/L [facility] CO2 24 21 - 35 mmol/L [facility] BUN 27(H) 6 - 19 mg/dL [facility] CREATININE 0.50 0.5 - 1.5 mg/dL [facility] GLUCOSE 103(H) 70 - 99 mg/dL [facility] CALCIUM 9.0 8.4 - 10.3 mg/dL [facility] EGFR 103 >59 mL/min/1.7 3m2 [facility] Comment:Estimated glomerular filtration rate calculated using the CKD-EPI refit equation. ANION GAP 16 10 - 20 mmol/L [facility] Blood 05/23/2023 4:12 PM EST 05/23/2023 4:32 PM EST Mely Padron PA-C LAB BLOOD ORDERABLES Final R esult [address] [address] * (ABNORMAL) TSH with reflex (01/13/2023 7:58 AM EDT) TSH 0.03(L) 0.27 - 4.20 uIU/mL [facility] Blood 01/13/2023 7:58 AM EDT 01/13/2023 8:03 AM EDT Agueda Ann MD LAB BLOOD ORDERABLES Final Resul t Performing Organization Address City/[facility]/ZIP Co de Phone Number [address] [address] * (ABNORMAL) Lipid panel (12/25/2022 5:22 AM EDT) HDL 46 mg/dL [facility] Comment: Interpretation <40 mg/dL: Low HDL cholesterol (major risk factor for CHD) Greater than or equal to 60 mg/dL: High HDL cholesterol ( negative risk factor for CHD) HDL - cholesterol is affected by a number of factors, e.g. smoking, excerise, hormones, sex and age. CHOLESTEROL 98 0 - 240 mg/dL [facility] TRIGLYCERIDES 86 30 - 160 mg/dL [facility] LDL 35(L) 50 - 129 mg/dL [facility] Comment: LDL levels in terms of risk for coronary heart disease: <100 mg/dL: Optimal 100-129 mg/dL: Near or above optimal 130-159 mg/dL: Borderline high 160-189 mg/dL: High >190 mg/dL: Very High CARDIAC RISK RATIO 2.1(L) 3.3 - 4.4 [facility] Blood 12/25/2022 5:22 AM EDT 12/25/2022 6:22 AM EDT us Kayley Ribera NP LAB BLOOD ORDERABLES Fi nal Result [address] [address] * MAMMOGRAPHY FOR RESULT ENTRY ONLY (07/07/2022) us Agueda Ann MD HEALTH MAINTENANCE Edited Result - Final from Last 3 Months or Most Recently Relevant to Health Maintenance Insurance MEDIC[place] PART [place] [facility] & [place] [facility] MEDICARE [facility] A & [place] & B [facility] MEDICARE PART A & [place] B [facility] Advance Directives For more information, please contact: [phone] (9AM - 5PM [facility], Tuesday-Tuesday) Documents on File Type Date Recorded Patient Career Placement Specialist Expl anation Healthcare Proxy 11/08/2022 6:36 PM [...] Code Status Confirmed With: Patient Care Teams Eligibility And Occupancy Interviewer Relationship Specialty Start Date End Date Agueda Ann MD [address] [place] [address] PCP - General Family Medicine 02/01/19 Andie Rossi MD 48 [place] [address] Neurology 03/02/19 West Doll MD [address] [place] [address] 104 [place] [address] Cardiology 03/02/19 Britany Coles MD [address] [place] [address] 140 [place] [address] [email or web address] 03/02/19 Naun Hoang MD [address] [address] Infectious Diseases 03/02/19 Additional Source Comments The information contained in this document represents components of the legal health record. It is not the complete legal health record.[facility]
--- OUTSIDE RECORDS SUMMARY | 2024-12-11 05:37 | XMS_ITS | Encounter Summary ---
Author Organization [facility] Address [address] [place] [address] Phone Care Team Providers Care Sales Development Director Name Role Phone Agueda Ann MD Primary Care Provider [phone] Andie Rossi MD Unavailable West Doll MD Unavailable Britany Coles MD Unavailable [phone] Naun Hoang MD Unavailable + Agueda Ann MD Unavailable Latosha Garcia OT Unavailable [phone] Latosha Garcia OT Unavailable [phone] Mely Bhatti RN Unavailable [email or web address] Encounter Details Date Type Department Care Team (Late st Contact Info) Description 10/04/2019 Ancillary Orders [facility],Outside Imaging 30 [place] [address] System, Provider Not In, [facility] Partners [address] [address] Social History Tobacco Use Types Packs/Day Years [...] documented as of this encounter Care Teams Sales Development Director Relationship Specialty Start Date End Date Agueda Ann MD [address] [address] PCP - General Family Medicine 02/01/19 Andie Rossi MD 48 [place] [address] Neurology 03/02/19 West Doll MD [address] [place] [address] 104 [place] [address] Cardiology 03/02/19 Britany Coles MD [address] [place] [address] 140 [place] [phone] [email or web address] 03/02/19 [place] [address] [place] [address] Infectious Diseases 03/02/19 Agueda Ann MD [address] [address] [email or web address] Insurance Assigned Provider 07/02/23 04/02/24 Latosha Garcia, OT 30 [place] [address] [email or web address] Transitions Manager TraineePrison Warden Therapy 11/05/22 11/07/22 Latosha Garcia, OT 30 [place] [address] [email or web address] Transitions Manager TraineePrison Warden Therapy 11/24/22 11/25/22 Mely Bhatti, NICOLE 30 [place] [address] [email or web address] iCMP Manager Trainee 05/12/23 06/09/23 documented as of this encounter Additional Source Comments The information contained in this document represents components of the legal health record. It is not the complete legal health record.[facility]
--- OUTSIDE RECORDS SUMMARY | 2024-12-11 05:37 | XMS_ITS | Encounter Summary ---
Author Organization [facility] Address [address] [place] [address] Phone Care Team Providers Care Lead Inspector Name Role Phone Agueda Ann MD Primary Care Provider [phone] Andie Rossi MD Unavailable West Doll MD Unavailable Britany Coles MD Unavailable [phone] Naun Hoang MD Unavailable + Agueda Ann MD Unavailable Mely Bhatti RN Unavailable [email or web address] Encounter Details Date Type Department Care Team (Late st Contact Info) Description 12/24/2022 Procedure Pass [facility], Ct Scan - [facility] 30 [place] [address] Social History Tobacco Use Types Packs/Day Years [...] Author No Risk Indicated 12/24/2022 9:29 AM AELKT Natalya Delgadillo RN * [place] Suicide Severity Rating Scale (Screener/Recent Self-Report) Question [...] documented as of this encounter Care Teams Lead Inspector Relationship Specialty Start Date End Date Agueda Ann MD [address] [address] [email or web address] PCP - General Family Medicine 02/01/19 Andie Rossi MD [address] [place] [address] Neurology 03/02/19 West Doll MD [address] [place] [address] 104 [place] [address] Cardiology 03/02/19 Britany Coles MD [address] [place] [address] 140 [place] [phone] [email or web address] 03/02/19 Naun Hoang MD [address] [place] [address] Infectious Diseases 03/02/19 Agueda Ann MD [address] [address] [email or web address] Insurance Assigned Provider 07/02/23 04/02/24 Mely Bhatti, NICOLE [address] [address] [email or web address] Supervising Film Or Videotape Editor 05/12/23 06/09/23 documented as of this encounter Additional Source Comments The information contained in this document represents components of the legal health record. It is not the complete legal health record.[facility]
--- OUTSIDE RECORDS SUMMARY | 2024-12-11 05:37 | XMS_ITS | Encounter Summary ---
Author Organization [facility] Address [address] [place] [address] Phone Care Team Providers Care Cemetery Vault Installer Name Role Phone Agueda Ann MD Primary Care Provider [phone] Andie Rossi MD Unavailable West Doll MD Unavailable Britany Coles MD Unavailable Naun Hoang MD Unavailable + Agueda Ann MD Unavailable Latosha Garcia OT Unavailable [phone] Latosha Garcia OT Unavailable [phone] Mely Bhatti RN Unavailable [email or web address] Encounter Details Date Type Department Care Team (Late st Contact Info) Description 07/31/2021 Procedure Pass [facility] Endoscopy Admitting Dept Virtual Department 30 [place] [address] Social History Tobacco Use Types Packs/Day Years [...] documented as of this encounter Care Teams Cemetery Vault Installer Relationship Specialty Start Date End Date Agueda Ann MD [address] [place] [address] PCP - General Family Medicine 02/01/19 Andie Rossi MD [address] [place] [address] Neurology 03/02/19 West Doll MD [address] [place] [address] Cardiology 03/02/19 Britany Coles MD 175 [facility] 140 [place] [phone] [email or web address] [email or web address] 03/02/19 Naun Hoang MD 3300 [facility] 3C [place] [address] Infectious Diseases 03/02/19 Agueda Ann MD [address] [address] [email or web address] Insurance Assigned Provider 07/02/23 04/02/24 Latosha Garcia, OT 30 [place] [address] [email or web address] Transitions Door Liner HelperInnovation Manager Therapy 11/05/22 11/07/22 Latosha Garcia, OT 30 [place] [address] [email or web address] Transitions Door Liner HelperInnovation Manager Therapy 11/24/22 11/25/22 Mely Bhatti RN 30 [place] [address] [email or web address] iCMP Door Liner Helper 05/12/23 06/09/23 documented as of this encounter Additional Source Comments The information contained in this document represents components of the legal health record. It is not the complete legal health record.[facility]
--- OUTSIDE RECORDS SUMMARY | 2024-12-11 05:37 | XMS_ITS | Encounter Summary ---
Author Organization [facility] Address [address] [place] [address] Phone Care Team Providers Care Iron Erector Name Role Phone Agueda Ann MD Primary Care Provider [phone] Andie Rossi MD Unavailable West Doll MD Unavailable Britany Coles MD Unavailable Naun Hoang MD Unavailable + Agueda Ann MD Unavailable Mely Bhatti RN Unavailable [email or web address] Encounter Details Date Type Department Care Team (Late st Contact Info) Description 12/24/2022 Procedure Pass [facility] 30 [place] [address] Social History Tobacco Use Types Packs/Day Years [...] high school, GED, job training, learning the Welsh language, technical skills, or developing parenting skills)? [...] 12/24/2022 9:29 AM Natalya Menon, NICOLE * [place] Suicide Severity Rating Scale (Screener/Recent Self-Report) Question [...] documented as of this encounter Care Teams Iron Erector Relationship Specialty Start Date End Date Agueda Ann MD [address] [address] [email or web address] PCP - General Family Medicine 02/01/19 Andie Rossi MD [address] [place] [address] Neurology 03/02/19 West Doll MD [address] [place] [address] 104 [place] [address] Cardiology 03/02/19 Britany Colse MD [address] [place] [address] 140 [place] [phone] [email or web address] [email or web address] Surgery 03/02/19 Naun Hoang MD [address] [place] [address] Infectious Diseases 03/02/19 Agueda Ann MD [address] [address] [email or web address] Insurance Assigned Provider 4/6/24 1/6/25 Mely Bhatti, NICOLE [address] [place] [address] [email or web address] iCMP Medical Dosimetrist 05/12/23 06/09/23 documented as of this encounter Additional Source Comments The information contained in this document represents components of the legal health record. It is not the complete legal health record.[facility]
[2024-12-11 06:43] LABS: Anion Gap 14 (12-20); Blood Urea Nitrogen 25 mg/dL (9-16); Calcium 8.8 mg/dL (8.4-10.2); Carbon Dioxide 22 mmol/L (22-29); Chloride 107 mmol/L (96-108); Estimated Glomerular Filt Rate 56; Potassium 4.1 mmol/L (3.3-5.1); Sodium 139 mmol/L (135-145)
== END 2024-12-11 05:34 | disposition home or self-care (01) ==
LOC: HO.MMNH3L 05:33
PROVIDERS: Visit Provider Physician Assistant Medical
DX: F01.A0 Vascular dementia, mild, without behavioral disturbance, psychotic disturbance, mood disturbance, and anxiety (principal); I69.320 Aphasia following cerebral infarction; Z89.611 Acquired absence of right leg above knee
CPT/HCPCS: 36415; 80048

== ENCOUNTER 2024-12-17 07:17 | Outpatient (REF) | payer MEDICARE, MEDICAID, SELFPAY ==
[2024-12-17 06:41] LABS: MANUAL DIFF FLAG NO
--- OUTSIDE RECORDS SUMMARY | 2024-12-17 07:22 | XMS_ITS | Encounter Summary ---
Author Organization [facility] Address [address] [place] [address] Phone Care Team Providers Care Salesperson Furniture Name Role Phone Agueda Ann MD Primary Care Provider [phone] Andie Rossi MD Unavailable [phone] West Doll MD Unavailable Britany Coles MD Unavailable [phone] Naun Hoang MD Unavailable + Agueda Ann MD Unavailable Mely Bhatti RN Unavailable [email or web address] Encounter Details Date Type Department Care Team (Late st Contact Info) Description 12/24/2022 Procedure Pass [facility], [facility] 30 [place] [address] Social History Tobacco Use Types Packs/Day Years [...] high school, GED, job training, learning the Hebrew language, technical skills, or developing parenting skills)? [...] 12/24/2022 9:29 AM Natalya Menon, NICOLE * [place] Suicide Severity Rating Scale (Screener/Recent Self-Report) Question [...] documented as of this encounter Care Teams Salesperson Furniture Relationship Specialty Start Date End Date Agueda Ann MD [address] [address] [email or web address] PCP - General Family Medicine 02/01/19 Andie Rossi MD [address] [place] [address] Neurology 03/02/19 West Doll MD [address] [place] [address] 104 [place] [address] Cardiology 03/02/19 Britany Coles MD [address] [place] [address] 140 [place] [phone] [email or web address] [email or web address] 03/02/19 Naun Hoang MD [address] [place] [address] Infectious Diseases 03/02/19 Agueda Ann MD [address] [address] [email or web address] Insurance Assigned Provider 4/6/24 1/6/25 Mely Bhatti, NICOLE [address] [place] [address] [email or web address] iCMP Grid Inspector 05/12/23 06/09/23 documented as of this encounter Additional Source Comments The information contained in this document represents components of the legal health record. It is not the complete legal health record.[facility]
--- OUTSIDE RECORDS SUMMARY | 2024-12-17 07:22 | XMS_ITS | Encounter Summary ---
Author Organization [facility] Address [email or web address] [place] [address] Phone Care Team Providers Care Satellite Project Site Monitor Name Role Phone Agueda Ann MD Primary Care Provider [phone] Andie Rossi MD Unavailable West Doll MD Unavailable [phone] Britany Coles MD Unavailable [phone] Naun Hoang MD Unavailable + Agueda Ann MD Unavailable Mely Bhatti RN Unavailable [email or web address] Encounter Details Date Type Department Care Team (Late st Contact Info) Description 12/24/2022 Procedure Pass [facility], Ct Scan - [facility] 30 [place] [address] Social History Tobacco Use Types Packs/Day Years [...] high school, GED, job training, learning the Malay language, technical skills, or developing parenting skills)? [...] 9:29 AM ALEKT Natalya Delgadillo RN * [place] Suicide Severity Rating Scale (Screener/Recent Self-Report) Question [...] documented as of this encounter Care Teams Satellite Project Site Monitor Relationship Specialty Start Date End Date Agueda Ann MD [address] [address] [email or web address] PCP - General Family Medicine 02/01/19 Andie Rossi MD [address] [place] [address] Neurology 03/02/19 West Doll MD [address] [place] [address] 104 [place] [address] Cardiology 03/02/19 Britany Coles MD [address] [place] [address] 140 [place] [phone] [email or web address] Orthopedic Surgery 03/02/19 Naun Hoang MD [address] [place] [address] Infectious Diseases 03/02/19 Agueda Ann MD [address] [address] [email or web address] Insurance Assigned Provider 07/02/23 04/02/24 Mely Bhatti, NICOLE [address] [address] [email or web address] Supervisor Asphalt Paving 05/12/23 06/09/23 documented as of this encounter Additional Source Comments The information contained in this document represents components of the legal health record. It is not the complete legal health record.[facility]
--- OUTSIDE RECORDS SUMMARY | 2024-12-17 07:22 | XMS_ITS | Encounter Summary ---
Author Organization [facility] Address [address] [place] [address] Phone Care Team Providers Care Magnetic Prospecting Supervisor Name Role Phone Agueda Ann MD Primary Care Provider [phone] Andie Rossi MD Unavailable [phone] West Doll MD Unavailable [phone] Britany Coles MD Unavailable [phone] Naun Hoang MD Unavailable + Agueda Ann MD Unavailable Mely Bhatti RN Unavailable [email or web address] Encounter Details Date Type Department Care Team (Late st Contact Info) Description 12/25/2022 Procedure Pass [facility] [address] [place] [address] Social History Tobacco Use Types Packs/Day Years [...] high school, GED, job training, learning the Iranian language, technical skills, or developing parenting skills)? [...] documented as of this encounter Care Teams Magnetic Prospecting Supervisor Relationship Specialty Start Date End Date Agueda Ann MD [address] [place] [address] [email or web address] PCP - General Family Medicine 02/01/19 Andie Rossi MD [address] [place] [address] Neurology 03/02/19 West Doll MD [address] [place] [address] 104 [place] [address] Cardiology 03/02/19 Britany Coles MD [address] [place] [address] 140 [place] [phone] [email or web address] Orthopedic Surgery 03/02/[place] [address] [place] [address] Infectious Diseases 03/02/19 Agueda Ann MD [address] [address] [email or web address] [email or web address] Insurance Assigned Provider 07/02/23 04/02/24 Mely Bhatti RN [address] [address] [email or web address] iCMP Fashion Consultant Sales 05/12/23 06/09/23 documented as of this encounter Additional Source Comments The information contained in this document represents components of the legal health record. It is not the complete legal health record.[facility]
--- OUTSIDE RECORDS SUMMARY | 2024-12-17 07:22 | XMS_ITS | Encounter Summary ---
Author Organization [facility] Address [address] [place] [address] Phone Care Team Providers Care Authorization Rep Name Role Phone Agueda Ann MD Primary Care Provider Andie Rossi MD Unavailable [phone] West Doll MD Unavailable [phone] Britany Coles MD Unavailable [phone] Naun Hoang MD Unavailable + Agueda Ann MD Unavailable Latosha Garcia OT Unavailable Mely Bhatti RN Unavailable [email or web address] Encounter Details Date Type Department Care Team (Late st Contact Info) Description 11/18/2022 Procedure Pass [facility]ovascular [facility] Interventional [facility] 30 [place] [address] Social History Tobacco Use Types Packs/Day Years [...] high school, GED, job training, learning the French language, technical skills, or developing parenting skills)? [...] documented as of this encounter Care Teams Authorization Rep Relationship Specialty Start Date End Date Agueda Ann MD [address] [place] [address] PCP - General Family Medicine 02/01/19 Andie Rossi MD 48 [place] [address] Neurology 03/02/19 West Doll MD [address] [place] [address] 104 [place] [address] Cardiology 03/02/19 Britany Coles MD 175 [facility] 140 [place] [phone] .[employer] Orthopedic Surgery 03/02/19 [place] [address] [place] [address] Infectious Diseases 03/02/19 Agueda Ann MD [address] [address] [email or web address] Insurance Assigned Provider 07/02/23 04/02/24 Latosha Garcia, OT 30 [place] [address] [email or web address] Transitions Forest TechnicianGreenhouse Laborer Therapy 11/24/22 11/25/22 Mely Bhatti, NICOLE 30 [place] [address] [email or web address] iCMP Forest Technician 05/12/23 06/09/23 documented as of this encounter Additional Source Comments The information contained in this document represents components of the legal health record. It is not the complete legal health record.[facility]
--- OUTSIDE RECORDS SUMMARY | 2024-12-17 07:22 | XMS_ITS | Encounter Summary ---
Author Organization [facility] Address [address] [place] [address] Phone Care Team Providers Care Soil Fertility Specialist Name Role Phone Agueda Ann MD Primary Care Provider [phone] Andie Rossi MD Unavailable West Doll MD Unavailable Britany Coles MD Unavailable [phone] Naun Hoang MD Unavailable + Agueda Ann MD Unavailable Mely Bhatti RN Unavailable [email or web address] Encounter Details Date Type Department Care Team (Late st Contact Info) Description 12/25/2022 Procedure Pass Non-Invasive Cardiology 30 [place] [address] Social History Tobacco Use Types Packs/Day Years [...] high school, GED, job training, learning the Namibian language, technical skills, or developing parenting skills)? [...] documented as of this encounter Care Teams Soil Fertility Specialist Relationship Specialty Start Date End Date Agueda Ann MD [address] [place] [address] [email or web address] PCP - General Family Medicine 02/01/19 Andie Rossi MD 48 [place] [address] Neurology 03/02/19 West Doll MD [address] [place] [address] 104 [place] [address] Cardiology 03/02/19 Britany Coles MD [address] [place] [address] 140 [place] [phone] [email or web address] Orthopedic Surgery 03/02/19 [place] [address] [place] [address] Infectious Diseases 03/02/19 Agueda Ann MD [address] [address] [email or web address] Insurance Assigned Provider 07/02/23 04/02/24 Mely Bhatti RN [address] [address] [email or web address] iCMP Soa Integration Developer 05/12/23 06/09/23 documented as of this encounter Additional Source Comments The information contained in this document represents components of the legal health record. It is not the complete legal health record.[facility]
--- OUTSIDE RECORDS SUMMARY | 2024-12-17 07:22 | XMS_ITS | Clinical Summary ---
Author Organization [address] Address [address] [place] [phone] Care Team Providers Care Buckle Attacher Name Role Phone Unavailable Primary Care Provider [...] Series) 07/23/2005 Osteoporosis screening (bone density) 07/23/2020 Influenza vaccine 10/26/2024 Covid-19 vaccine series ( - season) 2024 RSV Immunization (1 - 1-dose 75+ series) 07/23/2030 Cervical cancer screening Discontinued Meningococcal B Vaccine Aged Out No l onger eligible based on patient's age to complete this topic Meningococcal Vaccine Aged Out No kinga blanche eligible based on patient's age to complete this topic
--- OUTSIDE RECORDS SUMMARY | 2024-12-17 07:22 | XMS_ITS | Encounter Summary ---
Author Organization [facility] Address [address] [place] [address] Phone Care Team Providers Care It Communications Manager Name Role Phone Agueda Ann MD Primary Care Provider [phone] Andie Rossi MD Unavailable [phone] West Doll MD Unavailable Britany Coles MD Unavailable [phone] Naun Hoang MD Unavailable + Agueda Ann MD Unavailable Latosha Garcia OT Unavailable [phone] Latosha Garcia OT Unavailable [phone] Mely Bhatti RN Unavailable [email or web address] Encounter Details Date Type Department Care Team (Late st Contact Info) Description 10/04/2019 Ancillary Orders [facility],Outside Imaging 30 [place] [address] System, Provider Not In, [facility] [address] [address] Social History Tobacco Use Types Packs/Day Years [...] documented as of this encounter Care Teams It Communications Manager Relationship Specialty Start Date End Date Agueda Ann MD [address] [address] PCP - General Family Medicine 02/01/19 Andie Rossi MD 48 [place] [address] Neurology 03/02/19 West Doll MD [address] [place] [address] 104 [place] [address] Cardiology 03/02/19 Britany Coles MD [address] [place] [address] 140 [place] [phone] [email or web address] [email or web address] Surgery 03/02/19 [place] [address] [place] [address] Infectious Diseases 03/02/19 Agueda Ann MD [address] [address] [email or web address] Insurance Assigned Provider 07/02/23 04/02/24 Latosha Garcia, OT 30 [place] [address] [email or web address] Transitions Parts Department ManagerSloop Captain Therapy 11/05/22 11/07/22 Latosha Garcia, OT 30 [place] [address] [email or web address] Transitions Parts Department ManagerSloop Captain Therapy 11/24/22 11/25/22 Mely Bhatti, NICOLE 30 [place] [address] [email or web address] iCMP Parts Department Manager 05/12/23 06/09/23 documented as of this encounter Additional Source Comments The information contained in this document represents components of the legal health record. It is not the complete legal health record.[facility]
--- OUTSIDE RECORDS SUMMARY | 2024-12-17 07:22 | XMS_ITS | Clinical Summary ---
Author Organization [employer] Address [address] [facility] 7t [place] [address] Care Team Providers Care Mortgage Protection Sales Name Role Phone Unavailable Primary Care Provider [...] Most Recently Relevant to Health Maintenance Insurance [facility] MEDICAID STAND ADULT
--- OUTSIDE RECORDS SUMMARY | 2024-12-17 07:22 | XMS_ITS | Encounter Summary ---
Author Organization [facility] Address [address] [place] [address] Phone Care Team Providers Care Pretzel Packer Name Role Phone Agueda Ann MD Primary Care Provider [phone] Andie Rossi MD Unavailable West Doll MD Unavailable Britany Coles MD Unavailable [phone] Naun Hoang MD Unavailable + Agueda Ann MD Unavailable Mely Bhatti RN Unavailable [email or web address] Encounter Details Date Type Department Care Team (Late st Contact Info) Description 12/24/2022 Procedure Pass [facility], Ct Scan - [facility] 30 [place] [address] Social History Tobacco Use Types Packs/Day Years [...] high school, GED, job training, learning the Occitan language, technical skills, or developing parenting skills)? [...] 9:29 AM ALEKT Natalya Delgadillo RN * [place] Suicide Severity Rating Scale (Screener/Recent Self-Report) Question [...] documented as of this encounter Care Teams Pretzel Packer Relationship Specialty Start Date End Date Agueda Ann MD [address] [address] [email or web address] PCP - General Family Medicine 02/01/19 Andie Rossi MD [address] [place] [address] Neurology 03/02/19 West Doll MD [address] [place] [address] 104 [place] [address] Cardiology 03/02/19 Britany Coles MD [address] [place] [address] 140 [place] [address] [email or web address] [email or web address] Surgery 03/02/19 Naun Hoang MD [address] [place] [address] Infectious Diseases 03/02/19 Agueda Ann MD [address] [address] [email or web address] Insurance Assigned Provider 07/02/23 04/02/24 Mely Bhatti, NICOLE [address] [address] [email or web address] Lead Database Developer 05/12/23 06/09/23 documented as of this encounter Additional Source Comments The information contained in this document represents components of the legal health record. It is not the complete legal health record.[facility]
--- OUTSIDE RECORDS SUMMARY | 2024-12-17 07:22 | XMS_ITS | Encounter Summary ---
Author Organization [employer] Address [address] [facility] 7t [place] [address] Care Team Providers Care Computational Physicist Name Role Phone Unavailable Primary Care Provider Unavailabl e Encounter Details Date Type Department Care Team (Latest Contact Info) Description 05/02/[address] [facility] CONVERSIONS Dental, Provider, DDS Social History [...]
--- OUTSIDE RECORDS SUMMARY | 2024-12-17 07:22 | XMS_ITS | Encounter Summary ---
Author Organization [employer] Address [address] [facility] 7t [place] [address] Care Team Providers Care Regulation Supervisor Name Role Phone Unavailable Primary Care Provider Unavailabl e Encounter Details Date Type Department Care Team (Latest Contact Info) Description 07/09/2020 Abstract [facility] CONVERSIONS Dental, Provider, DDS Social History [...]
--- OUTSIDE RECORDS SUMMARY | 2024-12-17 07:22 | XMS_ITS | Encounter Summary ---
Author Organization [facility] Address [address] [place] [address] Phone Care Team Providers Care Sap Business Objects Consultant Name Role Phone Agueda Ann MD Primary Care Provider [phone] Andie Rossi MD Unavailable [phone] West Doll MD Unavailable Britany Coles MD Unavailable [phone] Naun Hoang MD Unavailable + Agueda Ann MD Unavailable Mely Bhatti RN Unavailable [email or web address] Encounter Details Date Type Department Care Team (Late st Contact Info) Description 12/24/2022 Procedure Pass [facility], [facility] 30 [place] [address] Social History Tobacco Use Types Packs/Day Years [...] 12/24/2022 9:29 AM Natalya Menon, NICOLE * [place] Suicide Severity Rating Scale (Screener/Recent Self-Report) Question [...] documented as of this encounter Care Teams Sap Business Objects Consultant Relationship Specialty Start Date End Date Agueda Ann MD [address] [address] [email or web address] PCP - General Family Medicine 02/01/19 Andie Rossi MD [address] [place] [address] Neurology 03/02/19 West Doll MD [address] [place] [address] 104 [place] [address] Cardiology 03/02/19 Britany Coles MD [address] [place] [address] 140 [place] [phone] [email or web address] Orthopedic Surgery 03/02/19 Naun Hoang MD [address] [place] [address] Infectious Diseases 03/02/19 Agueda Ann MD [address] [address] [email or web address] Insurance Assigned Provider 4/6/24 1/6/25 Mely Bhatti, NICOLE [address] [place] [address] [email or web address] Food And Beverage Manager 05/12/23 06/09/23 documented as of this encounter Additional Source Comments The information contained in this document represents components of the legal health record. It is not the complete legal health record.[facility]
--- OUTSIDE RECORDS SUMMARY | 2024-12-17 07:22 | XMS_ITS | Encounter Summary ---
Author Organization [facility] Address [address] [place] [address] Phone Care Team Providers Care Equipment Man Name Role Phone Agueda Ann MD Primary Care Provider [phone] Andie Rossi MD Unavailable West Doll MD Unavailable [phone] Britany Coles MD Unavailable Naun Hoang MD Unavailable + Agueda Ann MD Unavailable Latosha Garcia OT Unavailable Latosha Garcia OT Unavailable [phone] Mely Bhatti RN Unavailable [email or web address] Encounter Details Date Type Department Care Team (Late st Contact Info) Description 11/04/2022 Procedure Pass [facility] 30 [place] [address] Social History Tobacco Use Types Packs/Day Years [...] 11/04/2022 1:06 AM Lucita Hirsch, NICOLE * [place] Suicide Severity Rating Scale (Screener/Recent Self-Report) Question [...] documented as of this encounter Care Teams Equipment Man Relationship Specialty Start Date End Date Agueda Ann MD [address] [address] [email or web address] PCP - General Family Medicine 02/01/19 Andie Rossi MD [address] [place] [address] Neurology 03/02/19 West Doll MD [address] [place] [address] 104 [place] [address] Cardiology 03/02/19 Britany Coles MD [address] [place] [address] 140 [place] [phone] [email or web address] [email or web address] Surgery 03/02/19 Naun Hoang MD [address] [place] [address] Infectious Diseases 03/02/19 Agueda Ann MD [address] [address] [email or web address] Insurance Assigned Provider 07/02/23 04/02/24 Latosha Garcia, OT 30 [place] [address] [email or web address] Transitions Armed Security GuardNational Park Tour Guide Therapy 11/05/22 11/07/22 Latosha Garcia, OT 30 [place] [address] [email or web address] Transitions Armed Security GuardNational Park Tour Guide Therapy 11/24/22 11/25/22 Mely Bhatti RN 30 [place] [address] [email or web address] Armed Security Guard 05/12/23 06/09/23 documented as of this encounter Additional Source Comments The information contained in this document represents components of the legal health record. It is not the complete legal health record.[facility]
--- OUTSIDE RECORDS SUMMARY | 2024-12-17 07:22 | XMS_ITS | Clinical Summary ---
Author Organization [facility] Address [address] [place] [address] Phone Care Team Providers Care Vehicle Sales Professional Name Role Phone Agueda Ann MD Primary Care Provider [phone] Andie Rossi MD Unavailable [phone] West Doll MD Unavailable [phone] Britany Coles MD Unavailable Naun Hoang MD [...] mouth daily. 4 Active neomycin/bacitra negrito/polymyxinB (NEOSPORIN, [id number], TP) Apply 1 Application topically 2 (two) [...] 20 MG tabletIndication s:Coronary artery disease involving anvik heart without angina pectoris, unspecified vessel or [...] an echo, and follow-up with her own nutrition tech who is at [facility]. Acquired hypothyroidism 09/04/2020 Assessment & Plan (12/26/2022 [...] like to little and she is established [facility] so I like her to see the data operations director there she understands and agrees this plan Assessment & Plan (05/17/2019 12:35 PM EST): She is working out, tracking her caloric intake and sticking to nutrition plan although she is under eating. No clear etiology for her weight gain. Start taking levothyroxine separately from the other medications. Check labs today. Make follow-up with data operations director CAD (coronary artery disease) 03/02/2019 Overview (03/02/2019): h/o stent Assessment & Plan (12/26/2022 3:02 PM EDT): No active cp or acute concern -Continue bus monitor -Continue aspirin, atorvastatin, Plavix, and Zetia [...] and chronic pain. Certainly would benefit from INFRASTRUCTURE PROJECT MANAGER services and I have discussed with pt [...] pt can establish with someone new at [facility]. Assessment & Plan (01/21/2021 12:34 PM [...] and gait. She will be going to [facility] physical medicine and rehabilitation in [place] for this. IgG monoclonal gammopathy Assessment & Plan (03/02/2019 12:15 PM EST): Patient denies ever seeing hematology, has never heard this diagnosis and does not think that she has this. As I do not have records it is difficult for me to understand where this came from. I would like to review her [facility] records and if necessary we will [...] appt for Neuro muscular in [facility] at [facility] No further pain. F/u as needed Assessment [...] this topic Medical Devices Implanted Type Area Apprentice Stylist Device Identifier Shelf Expiration Date Model / Serial / Lot Stent Supera 6fr 5.5mm 120mm 120cm .014in Otw Vascular Peripheral Nitinol Self Expanding Closed End Braided - [id number] Implanted:Qty: 1 on 11/18/2022 by David Mendez MD at [facility] [email or web address] 04/27/2024 [id number] / / [id number] Cardiac Stent Neck Hardware Procedures Procedure Name [...] EST) SODIUM 137 133 - 146 mmol/L [facility] CHLORIDE 101 96 - 108 mmol/L [facility] POTASSIUM 4.1 3.3 - 5.1 mmol/L [facility] CO2 24 21 - 35 mmol/L [facility] BUN 27(H) 6 - 19 mg/dL [facility] CREATININE 0.50 0.5 - 1.5 mg/dL [facility] GLUCOSE 103(H) 70 - 99 mg/dL [facility] CALCIUM 9.0 8.4 - 10.3 mg/dL [facility] EGFR 103 >59 mL/min/1.7 3m2 [facility] Comment:Estimated glomerular filtration rate calculated using the CKD-EPI refit equation. ANION GAP 16 10 - 20 mmol/L [facility] Blood 05/23/2023 4:12 PM EST 05/23/2023 4:32 PM EST Mely Padron PA-C LAB BLOOD ORDERABLES Final R esult [address] [address] * (ABNORMAL) TSH with reflex (01/13/2023 7:58 AM EDT) TSH 0.03(L) 0.27 - 4.20 uIU/mL [facility] Blood 01/13/2023 7:58 AM EDT 01/13/2023 8:03 AM EDT Agueda Ann MD LAB BLOOD ORDERABLES Final Resul t Performing Organization Address City/[facility]/ZIP Co de Phone Number [address] [address] * (ABNORMAL) Lipid panel (12/25/2022 5:22 AM EDT) HDL 46 mg/dL [facility] Comment: Interpretation <40 mg/dL: Low HDL cholesterol (major risk factor for CHD) Greater than or equal to 60 mg/dL: High HDL cholesterol ( negative risk factor for CHD) HDL - cholesterol is affected by a number of factors, e.g. smoking, excerise, hormones, sex and age. CHOLESTEROL 98 0 - 240 mg/dL [facility] TRIGLYCERIDES 86 30 - 160 mg/dL [facility] LDL 35(L) 50 - 129 mg/dL [facility] Comment: LDL levels in terms of risk for coronary heart disease: <100 mg/dL: Optimal 100-129 mg/dL: Near or above optimal 130-159 mg/dL: Borderline high 160-189 mg/dL: High >190 mg/dL: Very High CARDIAC RISK RATIO 2.1(L) 3.3 - 4.4 C [facility] Blood 12/25/2022 5:22 AM EDT 12/25/2022 6:22 AM EDT us Kayley Ribera NP LAB BLOOD ORDERABLES Fi nal Result [address] [address] * MAMMOGRAPHY FOR RESULT ENTRY ONLY (07/07/2022) us Agueda Ann MD HEALTH MAINTENANCE Edited Result - Final from Last 3 Months or Most Recently Relevant to Health Maintenance Insurance MEDICARE PART [place] [facility] MED[place] [facility] [place] & [place] [facility] MEDICARE PART [place] & [place] [facility] Advance Directives For more information, please contact: [phone] (9AM - 5PM [facility], Tuesday-Tuesday) Documents on File Type Date Recorded Patient Pillowcase Maker Expl anation Healthcare Proxy 11/08/2022 6:36 PM [...] Code Status Confirmed With: Patient Care Teams Vehicle Sales Professional Relationship Specialty Start Date End Date Agueda Ann MD [address] [place] [address] PCP - General Family Medicine 02/01/19 Andie Rossi MD 48 [place] [address] Neurology 03/02/19 West Doll MD [address] [place] [address] 104 [place] [address] Cardiology 03/02/19 Britany Coles MD [address] [place] [address] 140 [place] [address] [email or web address] [email or web address] Surgery 03/02/19 Naun Hoang MD [address] [address] Infectious Diseases 03/02/19 Additional Source Comments The information contained in this document represents components of the legal health record. It is not the complete legal health record.[facility]
--- OUTSIDE RECORDS SUMMARY | 2024-12-17 07:22 | XMS_ITS | Encounter Summary ---
Author Organization [employer] Address [address] [place] [address] Care Team Providers Care Seo Executive Name Role Phone Unavailable Primary Care Provider Unavailabl e Reason for Visit * Reason Onset Date Comments medical clearance 05/27/2022 Encounter Details Date Type Department Care Team (Late st Contact Info) Description 05/27/2022 Telephone [facility] [address] [place] [address] Davonte Cunningham DDS medical clearance Social History [...] was for medical clearance. Pls re send [phone] * Telephone Encounter - Lucina Leigh - [...] was for medical clearance. Pls re send [phone] documented in this encounter Plan of Treatment Not on file documented as of this encounter Visit Diagnoses Not on filedocumented in this encounter
--- OUTSIDE RECORDS SUMMARY | 2024-12-17 07:22 | XMS_ITS | Clinical Summary ---
Author Organization [facility] it Address [address] [place] [address] Care Team Providers Care Pulp Piler Name Role Phone Unavailable Primary Care Provider Unavailabl e Immunizations Name Administration Dates Next Due Pfizer SARS-CoV-2 COVID-19, mRNA, LNP-S, preservative free 07/02/2020,06/07/2020 Surgical History Surgery Date Site/Laterality Comments NECK SURGERY PROCEDURE: HISTORICAL NECK SURGERY; COMMENT: spinal stenosis TONSILLECTOMY PROCEDURE: HISTORICAL TONSILLECTOMY CHOLECYSTECTOMY 09/1989 PROCEDURE: HISTORICAL CHOLECYSTECTOMY BREAST REDUCTION PROCEDURE: SC BREAST REDUCTION ROBOTIC ASSISTED HYSTERECTOMY 03/05/14 PROCEDURE: [...]
--- OUTSIDE RECORDS SUMMARY | 2024-12-17 07:22 | XMS_ITS | Encounter Summary ---
Author Organization [employer] Address [address] [facility] 7t [place] [address] Care Team Providers Care Pickle Pumper Name Role Phone Unavailable Primary Care Provider Unavailabl e Encounter Details Date Type Department Care Team (Latest Contact Info) Description 06/29/2021 Abstract [facility] Dental, Provider, DDS Social History [...]
--- OUTSIDE RECORDS SUMMARY | 2024-12-17 07:22 | XMS_ITS | Encounter Summary ---
Author Organization [facility] Address [address] [place] [address] Phone Care Team Providers Care Gamemaster Name Role Phone Agueda Ann MD Primary Care Provider [phone] Andie Rosis MD Unavailable West Doll MD Unavailable Britany Coles MD Unavailable Naun Hoang MD Unavailable + Agueda Ann MD Unavailable Mely Bhatti RN Unavailable [email or web address] Encounter Details Date Type Department Care Team (Late st Contact Info) Description 12/24/2022 Procedure Pass [facility] 30 [place] [address] Social History Tobacco Use Types Packs/Day Years [...] high school, GED, job training, learning the Chinese language, technical skills, or developing parenting skills)? [...] 12/24/2022 9:29 AM Natalya Menon, NICOLE * [place] Suicide Severity Rating Scale (Screener/Recent Self-Report) Question [...] documented as of this encounter Care Teams Gamemaster Relationship Specialty Start Date End Date Agueda Ann MD [address] [address] [email or web address] PCP - General Family Medicine 02/01/19 Andie Rossi MD [address] [place] [address] Neurology 03/02/19 West Doll MD [address] [place] [address] 104 [place] [address] Cardiology 03/02/19 Britany Coles MD [address] [place] [address] 140 [place] [phone] [email or web address] [email or web address] Surgery 03/02/19 Naun Hoang MD [address] [place] [address] Infectious Diseases 03/02/19 Agueda Ann MD [address] [address] [email or web address] Insurance Assigned Provider 4/6/24 1/6/25 Mely Bhatti, NICOLE [address] [place] [address] [email or web address] Anti Air Warfare Operations Officer 05/12/23 06/09/23 documented as of this encounter Additional Source Comments The information contained in this document represents components of the legal health record. It is not the complete legal health record.[facility]
--- OUTSIDE RECORDS SUMMARY | 2024-12-17 07:22 | XMS_ITS | Patient Health Record ---
Author Organization [address] [place] [address] [facility] Address [address] [id number] Care Team Providers Care Patient Admitting Clerk Name Role Phone BARTOLO Dunbar Supriya [phone] Reason For Referral No Information Plan Of Treatment No Information
--- OUTSIDE RECORDS SUMMARY | 2024-12-17 07:22 | XMS_ITS | Encounter Summary ---
Author Organization [facility] Address [address] [place] [address] Phone Care Team Providers Care Language Teacher Name Role Phone Agueda Ann MD Primary Care Provider [phone] Andie Rossi MD Unavailable [phone] West Doll MD Unavailable Britany Coles MD Unavailable Naun Hoang MD Unavailable + Agueda Ann MD Unavailable Mely Bhatti RN Unavailable [email or web address] Encounter Details Date Type Department Care Team (Late st Contact Info) Description 12/24/2022 Procedure Pass [facility], [facility] 30 [place] [address] Social History Tobacco Use Types Packs/Day Years [...] high school, GED, job training, learning the Kiswahili language, technical skills, or developing parenting skills)? [...] 12/24/2022 9:29 AM Natalya Menon, NICOLE * [place] Suicide Severity Rating Scale (Screener/Recent Self-Report) Question [...] documented as of this encounter Care Teams Language Teacher Relationship Specialty Start Date End Date Agueda Ann MD [address] [address] [email or web address] PCP - General Family Medicine 02/01/19 Andie Rossi MD [address] [place] [address] Neurology 03/02/19 West Doll MD [address] [place] [address] 104 [place] [address] Cardiology 03/02/19 Britany Coles MD [address] [place] [address] 140 [place] [phone] [email or web address] [email or web address] Surgery 03/02/19 Naun Hoang MD [address] [place] [address] Infectious Diseases 03/02/19 Agueda Ann MD [address] [address] [email or web address] Insurance Assigned Provider 4/6/24 1/6/25 Mely Bhatti, NICOLE [address] [place] [address] [email or web address] Software Testing Specialist 05/12/23 06/09/23 documented as of this encounter Additional Source Comments The information contained in this document represents components of the legal health record. It is not the complete legal health record.[facility]
--- OUTSIDE RECORDS SUMMARY | 2024-12-17 07:22 | XMS_ITS | Encounter Summary ---
Author Organization [facility] Address [address] [place] [address] Phone Care Team Providers Care Hub Bander Name Role Phone Agueda Ann MD Primary Care Provider [phone] Andie Rossi MD Unavailable West Doll MD Unavailable [phone] Brtiany Coles MD Unavailable Naun Hoang MD Unavailable + Agueda Ann MD Unavailable Latosha Garcia OT Unavailable Latosha Garcia OT Unavailable [phone] Mely Bhatti RN Unavailable [email or web address] Encounter Details Date Type Department Care Team (Late st Contact Info) Description 07/31/2021 Procedure Pass [facility] Admitting Dept Virtual Department 30 [place] [address] Social History Tobacco Use Types Packs/Day Years [...] documented as of this encounter Care Teams Hub Bander Relationship Specialty Start Date End Date Agueda Ann MD [address] [place] [address] PCP - General Family Medicine 02/01/19 Andie Rossi MD [address] [place] [address] Neurology 03/02/19 West Doll MD [address] [place] [address] Cardiology 03/02/19 Britany Coles MD 175 [facility] 140 [place] [phone] [email or web address] [email or web address] Surgery 03/02/19 Naun Hoang MD 3300 [facility] [address] [place] [address] Infectious Diseases 03/02/19 Agueda Ann MD [address] [address] [email or web address] Insurance Assigned Provider 07/02/23 04/02/24 Latosha Garcia, OT 30 [place] [address] [email or web address] Transitions Undercover CopSupply Clerk Therapy 11/05/22 11/07/22 Latosha Garcia, OT 30 [place] [address] [email or web address] Transitions Undercover CopSupply Clerk Therapy 11/24/22 11/25/22 Mely Bhatti RN 30 [place] [address] [email or web address] Undercover Cop 05/12/23 06/09/23 documented as of this encounter Additional Source Comments The information contained in this document represents components of the legal health record. It is not the complete legal health record.[facility]
[2024-12-17 07:28] LABS: Hematocrit 28.4 % (37.0-47.0); Hemoglobin 8.8 g/dl (12.0-16.0); Imm Gran Abs Auto 0.05 X10*3/uL (0.00-0.03); Imm Gran Pct Auto 0.6 % (0.0-0.4); Lymphocytes Absolute Auto 2.7 X10*3/uL (1.2-4.9); Mean Corpuscular HGB Conc 31.0 g/dl (31.0-35.0); Mean Corpuscular Hemoglobin 26.5 pg (27.0-33.0); Mean Corpuscular Volume 85.5 fL (80.0-98.0); NRBC Abs Auto 0.000 X10*3/uL (0.0-0.012); NRBC Pct Auto 0.0 /100WBC (0.0-0.2); Platelet Count 339 X10*3/uL (160-400); Red Blood Count 3.32 X10*6/uL (4.20-5.50); White Blood Count 8.8 X10*3/uL (4.8-10.8)
[2024-12-17 07:35] LABS: Anion Gap 13 (12-20); Blood Urea Nitrogen 28 mg/dL (9-16); Calcium 8.3 mg/dL (8.4-10.2); Carbon Dioxide 22 mmol/L (22-29); Chloride 108 mmol/L (96-108); Estimated Glomerular Filt Rate 43; Potassium 4.6 mmol/L (3.3-5.1); Sodium 138 mmol/L (135-145)
== END 2024-12-17 07:18 | disposition home or self-care (01) ==
LOC: HO.MMNH3L 07:17
PROVIDERS: Visit Provider Student in an Organized Health Care Education/Training Program
DX: I25.9 Chronic ischemic heart disease, unspecified (principal); I69.398 Other sequelae of cerebral infarction; E03.9 Hypothyroidism, unspecified; Z89.611 Acquired absence of right leg above knee
CPT/HCPCS: 36415; 80048; 85025

== ENCOUNTER 2024-12-31 06:39 | Outpatient (REF) | payer MEDICARE, MEDICAID, SELFPAY ==
[2024-12-31 06:31] LABS: MANUAL DIFF FLAG NO
[2024-12-31 06:41] LABS: Hematocrit 26.5 % (37.0-47.0); Hemoglobin 8.0 g/dl (12.0-16.0); Imm Gran Abs Auto 0.02 X10*3/uL (0.00-0.03); Imm Gran Pct Auto 0.3 % (0.0-0.4); Lymphocytes Absolute Auto 2.0 X10*3/uL (1.2-4.9); Mean Corpuscular HGB Conc 30.2 g/dl (31.0-35.0); Mean Corpuscular Hemoglobin 26.4 pg (27.0-33.0); Mean Corpuscular Volume 87.5 fL (80.0-98.0); NRBC Abs Auto 0.020 X10*3/uL (0.0-0.012); NRBC Pct Auto 0.3 /100WBC (0.0-0.2); Platelet Count 257 X10*3/uL (160-400); Red Blood Count 3.03 X10*6/uL (4.20-5.50); White Blood Count 6.3 X10*3/uL (4.8-10.8)
--- OUTSIDE RECORDS SUMMARY | 2024-12-31 06:44 | XMS_ITS | Clinical Summary ---
Author Organization [address] Address [address] [place] [phone] Care Team Providers Care Railroad Detective Name Role Phone Unavailable Primary Care Provider [...]
--- OUTSIDE RECORDS SUMMARY | 2024-12-31 06:44 | XMS_ITS | Data Portability ---
Author Organization [facility], Main Office Address [address] [address] [address] [place] [address] Care Team Providers [employer] Principal Name Role Phone VINI DOWLING 1ST FLOOR OTHER BEBE GUTIERREZ Primary Care Provider Assessment Encounter Date Assessment Date Assessment LastModified by Organization Details LastModified Time 12/12/2023 12/12/2023 Labs 09/25: Na 141-K 5.2-Bun 34-C r 0.7-wbc 8.7-hgb 10.2-hct 32.7-plt 237- Labs 10/02: Na 141-K 4.4-Bun 25-Cr 0.6-wbc 7.6-hgb 9.8-hct 30.8-plt 221- Labs 10/09: reordered for 10/11 not completed today. Labs 10/17/23: wbc 7.7, hgb 9, plt. 286. Na 138, K 4.1, Bun 21, Cr. 0.69, glu 69. labs 10/23: : wbc 5.6-hgb 9.4-hct 29.5-plt 293-Na 139--K 4.0-Bun 15-Cr 0.6 GFR >60 Labs 10/30: Na 136-K 4.8-Bun 28- Cr 0.6-wbc 6.6-hbg 9.8-hct 30.0-plt 242 Labs 11/03 wbc 10.1-hgb 8.7-hct 27.8-plt 268 Labs 11/06: Na 138-K 4.3-Bun 25-Cr 0.6wbc 7.8-hgb 6.0-hct 18.6-plt 280- Iron 26-TIBC 195-% sat 13 hosp lab 11/08-11/10: na 140 k 4.5, bun 22, cr 0.82, wbc 9.2, hgb 8.3, hct 25.6, plt 298, ferritin 69, iron 201, tibc 238, % iron sat 84%, mag 1.9 Labs 11/13: Na 139-K 3.9-Bun 33-Cr 0.8-gfr >60-wbc7.1-hg b 7.5-hct 23.6-plt 299 Labs 11/20: Na 139-K 4.2-Bun 22- Cr 0.6-hgb 8.0-hct 25.4-plt 293 Labs 11/28: Na 137-K 4.8-Bun 27- Cr 0.7-hgb 9.0-hct 28.6-plt 312 Labs 12/11: Na 140-k 4.1-bun 24- Cr 0.7-wbc 5.8-hgb 8.0-hct 25.6-plt 242 Not available 12/12/2023 14:38:34 12/19/2023 12/19/2023 Labs 11/28: Na 137-K 4.8-Bun 27- Cr 0.7-hgb 9.0-hct 28.6-plt 312 Labs 12/11: Na 140-k 4.1-bun 24- Cr 0.7-wbc 5.8-hgb 8.0-hct 25.6-plt 242 Labs 12/18:Na 14K 4.4- Bun 26- Cr 0.6-wbc 6.4-hgb 8.2-ct 26.7-plt 228 Not available 12/19/2023 11:39:55 12/22/2023 12/22/2023 Labs 11/28: Na 137-K 4.8-Bun 27- Cr 0.7-hgb 9.0-hct 28.6-plt 312 Labs 12/11: Na 140-k 4.1-bun 24- Cr 0.7-wbc 5.8-hgb 8.0-hct 25.6-plt 242 Labs 12/18:Na 14K 4.4- Bun 26- Cr 0.6-wbc 6.4-hgb 8.2-ct 26.7-plt 228 Not available 12/22/2023 16:02:06 12/27/2023 12/27/2023 Labs 11/28: Na 137-K 4.8-Bun 27- Cr 0.7-hgb 9.0-hct 28.6-plt 312 Labs 12/11: Na 140-k 4.1-bun 24- Cr 0.7-wbc 5.8-hgb 8.0-hct 25.6-plt 242 Labs 12/18:Na 14K 4.4- Bun 26- Cr 0.6-wbc 6.4-hgb 8.2-ct 26.7-plt 228 Labs 12/25: Na 142- K 4.1-Bun 24- Cr 0.7 -wbc 6.7-hgb 7.9-hct 25.6-plt 279 Not available 12/27/2023 15:18:50 01/02/2024 01/02/2024 Labs 11/28: Na 137-K 4.8-Bun 27- Cr 0.7-hgb 9.0-hct 28.6-plt 312 Labs 12/11: Na 140-k 4.1-bun 24- Cr 0.7-wbc 5.8-hgb 8.0-hct 25.6-plt 242 Labs 12/18:Na 14K 4.4- Bun 26- Cr 0.6-wbc 6.4-hgb 8.2-ct 26.7-plt 228 Labs 12/25: Na 142- K 4.1-Bun 24- Cr 0.7 -wbc 6.7-hgb 7.9-hct 25.6-plt 279 Labs 01/01: Na 142-K 4.4-Bun 28- Cr 0.7- wbc 6.1-hgb 8.0-hct 26.3-plt 268 Not available 01/02/2024 13:18:45 Plan of Treatment Reminders Order Date Submit Date Provider Last Modified By Organization Details Last Modified Time Details Appointments None record ed. Lab None record ed. Referral None record ed. Procedures None record ed. Surgeries None record ed. Imaging None record ed. Medication Orders None record ed. Patient TargetsNo targets recorded. Patient InstructionsNo instructions recorded. Reason for Referral None Reported. Problems Name Problem SNOMED Code Status Onset Date Resolution Date Notes Provider Name and Address Organization Details Recorded Time Diabetes mellitus 87738825 Active 2023 MIRI NORTON [address] [facility], [address], [place], [address], [facility] 4 20:18:04 Essential hypertensio n 39462038 Active 2023 MIRI NORTON [address] [facility], [address], [place], [address], [facility] 4 20:18:10 Hyperlipide reinier 15834418 Active 2023 MIRI NORTON [address] [place] [address], [address], [place], [address], [facility] 4 20:18:16 Femoral-pop liteal artery bypass graft Completed 202309/01/2023 MIRI NORTON [address] [place] [address], [address], [place], [address], [facility] 4 22:16:23 Anemia 036106157 Active 2023 MIRI NORTON [address] [place] [address], [address], [place], [address], [facility] 4 20:20:45 Cerebrovasc ular accident 166678561 Active 2023 MIRI NORTON [address] [place] [address], [address], [place], [address], [facility] 4 20:21:06 Femoro-ante rior tibial bypass graft Completed 202309/01/2023 MIRI NORTON [address] [place] [address], [address], [place], [address], [facility] 4 22:16:23 Chronic kidney disease stage 3 869482734 Active 2023 MIRI NORTON [address] [place] [address], [address], [place], [address], [facility] 4 20:28:49 Peripheral vascular disease 786146721 Active 2023 MIRI NORTON [address] [place] [address], [address], [place], [address], [place] [facility] 20:29:56 Asthenia 82905837 Active 2023 PÉREZ LUNDBERG, MIRI [address], [address], [place], [address], [facility] 20:30:45 Insomnia 584727276 Active 2023 PÉREZ LUNDBERG, MIRI [address], [address], [place], [address], [facility] 4 21:49:49 Constipatio n 20915243 Active 2023 MIRI NORTON [address], [address], [place], [address], [facility] 4 21:52:14 Acute kidney injury 56659392 Active 2023 MIRI NORTON [address], [address], [place], [address], [facility] 4 21:56:55 Hypocalcemi a 8551098 Completed 202309/01/2023 MIRI NORTON [address], [address], [place], [address], [facility] 4 22:16:23 Myasthenia gravis 52927923 Active 2023 MIRI NORTON [address], [address], [place], [address], [facility] 4 22:10:42 Aphasia 34768604 Completed 202309/01/2023 MIRI NORTON [address], [address], [place], [address], [facility] 4 22:16:23 Vascular dementia 274042089 Active 2023 MIRI NORTON [address], [address], [place], [address], [facility] 4 13:06:33 Amputated below knee 453877938 Active 2023 MIRI NORTON [address], [address], [place], [address], [facility] 4 16:38:11 Delirium 9407350 Active 2023 MIRI NORTON [address], [address], [place], [address], [facility] 4 16:54:43 Dysphagia 73861372 Active [address]P [address], [address], [place], [address], [facility] 4 16:55:09 Toxic encephalopa thy 80016410 Active 2023 JOHN NORTONP [address] [facility], [address], [place], [address], [facility] 4 16:55:43 Hypothyroid ism 00996061 Active 2023 JOHN NORTONP [address] [facility], [address], [place], [address], [facility] 4 22:18:37 Anxiety 48767841 Active 2023 PÉREZ LUNDBERG [facility] [address] [facility], [address], [place], [address], [facility] 4 22:24:04 Carotid artery stenosis 27830462 Active 2023 MIRI NORTON [address] [facility], [address], [place], [address], [facility] 4 12:10:00 Problem Notes None recorded. Medical Equipment None Reported. Allergies No known drug allergies Medications Name Sig Start Date Stop Date Status Note LastModified by Organization Details LastModified Time lorazepam 0.5 mg tablet Take 1 tablet every 6 hours by oral route as needed. active Not Available Not Available Not Avai lable oxycodone 5 mg tablet Take 1 tablet every 4 hours by oral route as needed. active Not Available Not Available Not Avai lable Lyrica 150 mg capsule lyrica 150 mg qd and 200 mg at HS active Not Available Not Available Not Avai lable Lyrica 200 mg capsule 200 mg po qhs 024 active Not Available Not Available Not Avai lable Vitals Date Recorded Body height Heart rate Respiratory rate Body temperature Oxygen saturation Oxygen saturation in Arterial blood by Pulse oximetry Systolic And Diastolic Provider Name and Address Organization Details Last Updated DateTime 4 165.1 cm 82 /min 18 /min 98 [degF] 97 % 97 % 118/68 mm[Hg] MIRI NORTON [address] [facility], [address], [place], [address], [facility] 4 14:16:49 Date Recorded Body height Heart rate Respiratory rate Body temperature Oxygen saturation Oxygen saturation in Arterial blood by Pulse oximetry Systolic And Diastolic Provider Name and Address Organization Details Last Updated DateTime 4 165.1 cm 73 /min 18 /min 98 [degF] 94 % 94 % 111/76 mm[Hg] MIRI NORTON [address] [facility], [facility] [address], [place], [address], [facility] 4 11:35:13 Date Recorded Body height Respiratory rate Body temperature Oxygen saturation Oxygen saturation in Arterial blood by Pulse oximetry Heart rate Systolic And Diastolic Provider Name and Address Organization Details Last Updated DateTime 4 165.1 cm 18 /min 98 [degF] 94 % 94 % 68 /min 118/71 mm[Hg] MIRI NORTON [address] [facility], [address], [place], [address], [facility] 4 16:01:39 Date Recorded Body height Body mass index (BMI) Body weight Heart rate Respiratory rate Body temperature Oxygen saturation Oxygen saturation in Arterial blood by Pulse oximetry Systolic And Diastolic Provider Name and Address Organization Details Last Updated DateTime 4 165.1 cm 28.6 kg/m2 46174.8 9 g 73 /min 16 /min 98.4 [degF] 100 % 100 % 135/68 mm[Hg] MIRI NORTON [address] [facility], [address], [place], [address], [facility] 4 15:14:16 Social History Question Answer Notes LastModified by Organizat ion Details LastModified Time Tobacco Smoking Status Never Smoker MIRI NORTON [address] [facility], [address], [place], [address], [facility] 06/30/2023 02:31:25 Do You Have An Advance Directive? Yes Information not available 06/30/2023 What Is Your Level Of Caffeine Consumption? None Information not available 06/30/2023 What Is Your Code Status? Other Full Code :do Not Use Non-invasive Ventilation, No Art. Nutrition, Art Hydration Short Term Only And Undecided About Dialysis. Information not available 11/12/2023 Where Do You Live? Apartment With Elevator Information not available 07/22/2023 Legal Guardian? No Informati on not available 07/22/2023 Do You Have A Medical Power Of News Wire Photo Operator? Yes Information not available 07/22/2023 What Was The Date Of Your Most Recent Tobacco Screening? 11/12/2023 Information not available 11/12/2023 Do You Have An Out Of Hospital DNR? No Information not available 07/22/2023 Have You Ever Been Counseled For Unhealthy Alcohol Use? No Information not available 06/30/2023 What Is Your Relationship Status? Single Information not available 07/22/2023 Has Tobacco Cessation Counseling Been Provided? No N/A As Pt Is A Non-smoker Information not available 07/22/2023 Sex: Unknown Functional Status Question Answer Note LastModified by Organizat ion Details LastModified Time How many times per week do you consume alcohol? 1-2 times per week Information not available 06/30/2023 Do you use any illicit or recreational drugs? No Information not available 06/30/2023 Do you or have you ever used any other forms of tobacco or nicotine? No Information not available 06/30/2023 What is your level of alcohol consumption? Occasional Information not available 06/30/2023 Mental Status None recorded. Family History Nothing Reported Notes:n/c Medical History No medical history recorded. Gynecological HistoryNo gynecological history recorded. Obstetrics History GPAL:G 0 P 0 0 0 0 Immunizations Vaccine Type Date Status Note Provider Nam e and Address Organization Details Recorded Time Tdap 9 completed Elle South null, [facility] 07/01/2023 13:25:18 Tdap 8 completed Elle South null, [facility] 07/01/2023 13:25:33 Pneumococcal conjugate PCV20, polysaccharide NTG349 conjugate, adjuvant, PF 2 completed Elle South [facility], [facility] 07/01/2023 13:25:55 pneumococcal polysaccharide PPV23 4 completed Elle South null, [facility] 07/01/2023 13:26:09 pneumococcal polysaccharide PPV23 7 completed Elle South [facility] 07/01/2023 13:26:18 influenza, unspecified formulation 2 completed Elle South [facility] 07/01/2023 13:26:47 influenza, unspecified formulation 3 completed Elle Brannon [facility], [facility] 07/01/2023 13:26:55 SARS-COV-2 (COVID-19) vaccine, UNSPECIFIED 1 completed Elle Brannon [facility] 07/01/2023 13:27:17 SARS-COV-2 (COVID-19) vaccine, UNSPECIFIED 1 completed Elle Brannon [facility] 07/01/2023 13:27:40 SARS-COV-2 (COVID-19) vaccine, UNSPECIFIED 1 completed Elle Brannon [facility], [facility] 07/01/2023 13:27:55 SARS-COV-2 (COVID-19) vaccine, UNSPECIFIED 2 [facility] 13:28:04 SARS-COV-2 (COVID-19) vaccine, UNSPECIFIED 2 [facility] 13:28:24 SARS-COV-2 (COVID-19) vaccine, UNSPECIFIED 3 completed Elle Brannon [facility] 07/01/2023 13:28:37 zoster, unspecified formulation 9 completed Elle South [facility] 07/01/2023 13:29:06 zoster, unspecified formulation 9 completed Elle South [facility] 07/01/2023 13:29:21 Past Encounters Encounter ID Performer Location Encounter Start Date Encounter Closed Date Diagnosis/Indication Diagnosis SNOMED-CT Code Diagnosis ICD10 Code Diagnosis IMO Codes Diagnosis Note [id number] MIRI NORTON [address] [place] [address] 06/29/2023 15:34:40 07/22/2023 14:35:38 Peripheral vascular disease 992375112 I73.9 s/p right femoral endarterec bridget with completion angiograms /p right femoral to anterior tibialis bypasss/p stent placement of the anterior tibialis along with debridemen t of the right dorsal foot wound.foll ow-up with vascular surgery for continued management of right lower extremity woundscont inue plavix 75 mg dailyconti nue eliquis 5 mg bidcontinu e aspirin 81 mg dailyconti nue lyrica 150 mg daily and 200 mg hscontinue oxycodone 5 mg q 6 prncontinu e lidocaine patch rightfollo w up with vascular 06/29 Asthenia 74293680 R53.1 hx of myasthenia gravisPT/O T eval and treat Diabetes mellitus 486280 09 E11.9 A1c 5.7 on 06/23hospit al records indicate that she states she is taking for constipati on, she is not sure she is a diabetic.c ontinue metformin 500 mg BIDcontinu e to monitor FSfollow-u p with PCP after discharge for further management Essential hypertension 83198303 I10 continue lisinopril 5 mg dailyconti nue metoprolol 50 mg bidfurosem oxana 40 mg dailymonit or BP /labs Hyperlipidemia 48895971 E78.5 atorvastat in 40 mg dailymonit or lipids prn Insomnia 225753264 G47.0 0 continue melatonin 9 mg hscontinue trazadone 12.5 mg hs prn Constipation 60201121 K5 9.00 continue colace 100 mg bidcontinu e miralax 17 gm dailyincre ase oral hydration Anemia 709500947 D64.9 continue ferrous sulfate 325 mg dailymonit or CBCH&H stable at 7.9/25.1 Hypocalcemia 3743247 E83 .51 continue calcium carbonate 500 mg dailyconti nue cholecalci ferol 1000 u daily Myasthenia gravis 435926 04 G70.00 carrying dxmaintain safety/pre cautionsno t on medication Cerebrovas cular accident 795971817 I63.9 carrying dx Chronic ki dney disease stage 3 195978474 N18.30 mahi resolved in acute careavoid nephrotoxi c medication smonitor labs [id number] MIRI NORTON [facility] [address] [place] [address] 06/30/2023 11:39:21 07/04/2023 14:42:16 Bleeding from nose 813544733 R04.0 uncontroll ed bleeding from right narespt is on multiple anticoag( asa, eliquis and plavix) held this morning.wi ll send to ED for eval and tx. [id number] MIRI NORTON [address] [place] [address] 07/12/2023 11:03:46 07/19/2023 11:10:58 Open wound of right foot 9591862022 2566292 S91.301A dorsal right foot with wound vacDo Not remove wound vac, she has appt with vascular on 07/13 Surgical i ncision wound of skin 3128144149 00 R23.8 right lateral mid thigh with 22 nehemias right low leg corral 12 staple right lower extremity medial thigh wound with packing Peripheral vascular disease 770886501 I73.9 s/p right femoral endarterec bridget with completion angiogram s/p right femoral to anterior tibialis bypass s/p stent placement of the anterior tibialis along with debridemen t of the right dorsal foot wound.07/06 sp left TCAR and right foot debridemen t continue plavix 75 mg dailyconti nue eliquis 5 mg bidcontinu e aspirin 81 mg dailyconti nue lyrica 150 mg daily and 200 mg hscontinue oxycodone 5 mg q 6 prncontinu e lidocaine patch rightfollo w up with vascular 06/29 Asthenia 30986637 R53.1 hx of myasthenia gravisPT/O T eval and treat Diabetes mellitus 446166 09 E11.9 A1c 5.7 on 06/23hospit al records indicate that she states she is taking for constipati on, she is not sure she is a diabetic.c ontinue metformin 500 mg BIDcontinu e to monitor FSfollow-u p with PCP after discharge for further management Essential hypertension 12960006 I10 continue lisinopril 5 mg dailyconti nue metoprolol 50 mg bidfurosem oxana 40 mg dailymonit or BP /labs Hyperlipidemia 88747542 E78.5 atorvastat in 40 mg dailymonit or lipids prn Insomnia 273158220 G47.0 0 continue melatonin 9 mg hscontinue trazadone 12.5 mg hs prn Constipation 39272641 K5 9.00 continue colace 100 mg bidcontinu e miralax 17 gm dailyincre ase oral hydration Anemia 499742518 D64.9 baseline 7.9-8decre ased to 7.0 due to epistaxiss he was transfused 2 PRBCsconti nue ferrous sulfate 325 mg dailymonit or CBC Hypocalcemia 3547488 E83 .51 continue calcium carbonate 500 mg dailyconti nue cholecalci ferol 1000 u daily Myasthenia gravis 831457 04 G70.00 carrying dxmaintain safety/pre cautionsno t on medication Cerebrovas cular accident 434740559 I63.9 carrying dx Chronic ki dney disease stage 3 312970375 N18.30 mahi resolved in acute careavoid nephrotoxi c medication smonitor labs Aphasia 79305332 R47.01 hx of CVAIntermi ttent aphasia/Wo rd finding difficulty no new stroke seen on brain MRI.Suspec t vascular dementia, may have some hypoperfus ion given her anemia. [id number] MIRI NORTON [address] [place] [address] rd [place] [address] 07/18/2023 10:15:58 07/22/2023 15:25:22 Open wound of right foot 3390463948 2999408 S91.301A s/p wound debridemen t 07/13, will be returning to vascular 07/19 for integra placement and wound vac Surgical i ncision wound of skin 8490492378 00 R23.8 right lateral mid thigh with 22 staplesrig ht low leg corral 12 staplerigh t lower extremity medial thigh wound with packingnur sing to removed on 07/18 ord placed in [facility] Peripheral vascular disease 206660828 I73.9 s/p right femoral endarterec bridget with completion angiogram s/p right femoral to anterior tibialis bypass s/p stent placement of the anterior tibialis along with debridemen t of the right dorsal foot wound.07/06 sp left TCAR and right foot debridemen t continue plavix 75 mg dailyconti nue eliquis 5 mg bidcontinu e aspirin 81 mg dailyconti nue lyrica 150 mg daily and 200 mg hscontinue oxycodone 5 mg q 6 prncontinu e lidocaine patch right Asthenia 80000589 R53.1 hx of myasthenia gravisPT/O T eval and treat Diabetes mellitus 104112 09 E11.9 A1c 5.7 on 06/23hospit al records indicate that she states she is taking for constipati on, she is not sure she is a diabetic.c ontinue metformin 500 mg BIDcontinu e to monitor FSfollow-u p with PCP after discharge for further management Essential hypertension 02116934 I10 continue lisinopril 5 mg dailyconti nue metoprolol 50 mg bidfurosem oxana 40 mg dailymonit or BP /labs Constipation 43450564 K5 9.00 continue colace 100 mg bidcontinu e miralax 17 gm dailyincre ase oral hydration Anemia 978858106 D64.9 baseline 7.9-8decre ased to 7.0 due to epistaxiss he was transfused 2 PRBCsconti nue ferrous sulfate 325 mg dailymonit or CBC Aphasia 36945517 R47.01 hx of CVAIntermi ttent aphasia/Wo rd finding difficulty no new stroke seen on brain MRI.Suspec t vascular dementia, may have some hypoperfus ion given her anemia. [id number] Afia Tierney MD [address] [place] [address] 07/22/2023 14:24:36 08/15/2023 12:08:31 Open wound of right foot 2412411820 8275112 S91.301A Continue wound care as ordered.F/ U with surgeon as planned for further debridemen t and wound vac placement. Surgical i ncision wound of skin 9745773093 00 R23.8 Wounds healing well.Stale s removed. Peripheral vascular disease 836745016 I73.9 s/p right femoral endarterec bridget with completion angiogram s/p right femoral to anterior tibialis bypass s/p stent placement of the anterior tibialis along with debridemen t of the right dorsal foot wound.07/06 sp left TCAR and right foot debridemen tContinue Plavix 75 mg qd, Eliquis 5 mg BID, ASA 81 mg qd, Lyrica 150 mg qAM and 200 mg qhs, lidocaine patch on in AM And off in PM, and oxycodone 5 mg q 6 hrs prnMonitor sxs. Asthenia 82708483 R53.1 As above. Diabetes mellitus 456821 09 E11.9 HgA1C was 5.7 on 06/23All sugars <200 since here, so fingerstic ks d/c'd on 07/18Contin ue metformin 500 mg BIDMonitor fingerstic ks prn. Essential hypertension 54590301 I10 BP in good control on lisinopril 5 mg qd, metoprolol 50 mg BID, and furosemide 40 mg qdMonitor BP and labs. Constipation 84337690 K5 9.09 Continue bowel meds as ordered.Mo nitor bowel function. Anemia 550422204 D64.89 Multifacto rial.Galindo nue ferrous sulfate 325 mg qdMonitor CBC Aphasia 83413359 R47.01 As above. Hyperlipidemia 28629955 E78.49 Continue atorvastat in 40 mg qdMonitor lipids yearly Insomnia 726053471 G47.0 0 Continue melatonin 9 mg qhs and trazadone 12.5 mg qhs prnMonitor sleep patterns. Hypocalcemia 2704008 E83 .51 Doesn't have hypocalcem ia.Correct ed Ca+ os 9.08Likely is on Ca+ and vit D for osteopenia .Continue calcium carbonate 500 mg qd and cholecalci ferol 1000 IU qd. Myasthenia gravis 815939 04 G70.00 Carrying dxOn no meds at this time.Very deconditio kelsy.Needs PT/OT for strengthen ing, balance, gait training, safety and function.C ontinue fall precaution s.Monitor for safety. Cerebrovas cular accident 693261000 I63.89 With mod to severe aphasia.SL P eval and tx.Continu e meds as above.Prakash emory for new neuro sxs. Chronic ki dney disease stage 3 082225266 N18.32 At baseline.C ontinue to avoid nephrotoxi c meds as able.Monit or labs.Renal consult prn. Anxiety 17678964 F41.1 Very anxious tonight. Anxiety makes it even harder for her to get her words out.Will start lorazepam 0.5 mg q 6 hrs prn [id number] MIRI NORTON [address] [place] [address] [place] [address] 07/25/2023 12:45:25 07/26/2023 15:42:48 Open wound of right foot 7349887870 8476397 S91.301A 07/19: s/p wound debridemen tcontinue wound treatment as ordered.fo llow up with [facility] on 08/01 at 130 pm Surgical i ncision wound of skin 4241917531 00 R23.8 right lateral mid thigh - HEALING NEHEMIAS REMOVED IN ACUTE CAREright low leg corral healingrig ht lower extremity medial thigh wound with packing Peripheral vascular disease 526955045 I73.9 s/p right femoral endarterec bridget with completion angiogram s/p right femoral to anterior tibialis bypass s/p stent placement of the anterior tibialis along with debridemen t of the right dorsal foot wound.07/06 sp left TCAR and right foot debridemen t continue plavix 75 mg dailyconti nue eliquis 5 mg bidcontinu e aspirin 81 mg dailyconti nue lyrica 150 mg daily and 200 mg hscontinue oxycodone 5 mg q 6 prncontinu e lidocaine patch right Asthenia 91921270 R53.1 hx of myasthenia gravisPT/O T eval and treat Diabetes mellitus 986543 09 E11.9 continue metformin 500 mg BIDcontinu e to monitor FSfollow-u p with PCP after discharge for further management Essential hypertension 04987435 I10 continue lisinopril 5 mg dailyconti nue metoprolol 50 mg bidfurosem oxana 40 mg dailymonit or BP /labs Constipation 00480019 K5 9.00 continue colace 100 mg bidschedul ed miralax 17 gm daily and senna 8.6 mg daily.incr ease oral hydration Anemia 200063991 D64.9 see hpitoday 6.7 -will recheck on 07/25contin ue ferrous sulfate 325 mg dailycolor is normal, there is no SOB, extremitie s are warm.monit or CBC [id number] MIRI NORTON [address] [place] [address] [place] [address] 07/29/2023 09:49:56 08/02/2023 10:28:17 Open wound of right foot [id number] S91.301A 07/19: s/p wound debridemen tcontinue wound treatment as ordered.fo llow up with BVS on 08/01 at 130 pm Peripheral vascular disease 410074251 I73.9 s/p right femoral endarterec bridget with completion angiogram s/p right femoral to anterior tibialis bypass / s/p stent placement of the anterior tibialis along with debridemen t of the right dorsal foot wound.07/06 sp left TCAR and right foot debridemen t continue plavix 75 mg dailyconti nue eliquis 5 mg bidcontinu e aspirin 81 mg dailyconti nue lyrica 150 mg daily and 200 mg hscontinue oxycodone 5 mg q 6 prncontinu e lidocaine patch right Diabetes mellitus 916424 09 E11.9 continue metformin 500 mg BIDcontinu e to monitor FSfollow-u p with PCP after discharge for further management Essential hypertension 71220404 I10 continue lisinopril 5 mg dailyconti nue metoprolol 50 mg bidfurosem oxana 40 mg dailymonit or BP /labs Anemia 035795396 D64.9 see hpicontinu e ferrous sulfate 325 mg dailycolor is normal, there is no SOB, extremitie s are warm.monit or CBC [id number] MIRI NORTON [facility] [address] [facility] [place] [address] 08/05/2023 09:45:20 08/09/2023 11:18:14 Open wound of right foot [id number] S91.301A 07/19: s/p wound debridemen tcontinue wound treatment as ordered.fo llow up with BVS on 08/02 with new wound care orders-[facility] care for R foot: Apply saline moistened Promogran over Puraply three times weekly. Peripheral vascular disease 904440535 I73.9 s/p right femoral endarterec bridget with completion angiogram s/p right femoral to anterior tibialis bypass s/p stent placement of the anterior tibialis along with debridemen t of the right dorsal foot wound.07/06 sp left TCAR and right foot debridemen t continue plavix 75 mg dailyconti nue eliquis 5 mg bidcontinu e aspirin 81 mg dailyconti nue lyrica 150 mg daily and 200 mg hscontinue oxycodone 5 mg q 6 prncontinu e lidocaine patch right Diabetes mellitus 737405 09 E11.9 continue metformin 500 mg BIDcontinu e to monitor FSfollow-u p with PCP after discharge for further management Essential hypertension 87946489 I10 continue lisinopril 5 mg dailyconti nue metoprolol 50 mg bidfurosem oxana 40 mg dailymonit or BP /labs Anemia 044966026 D64.9 see hpicontinu e ferrous sulfate 325 mg dailycolor is normal, there is no SOB, extremitie s are warm.monit or CBC [id number] MIRI NORTON [facility] [address] [facility] [place] [address] 08/09/2023 08:23:37 08/12/2023 11:43:31 Open wound of right foot [id number] S91.301A 07/19: s/p wound debridemen tcontinue wound treatment as ordered.fo llow up with BVS on 08/02 with new wound care orders-Wou nd care for R foot: Apply saline moistened Promogran over Puraply three times weekly.[facility]. [facility] disease 575720161 I73.9 s/p right femoral endarterec bridget with completion angiogram s/p right femoral to anterior tibialis bypass s/p stent placement of the anterior tibialis along with debridemen t of the right dorsal foot wound.07/06 sp left TCAR and right foot debridemen t continue plavix 75 mg dailyconti nue eliquis 5 mg bidcontinu e aspirin 81 mg dailyconti nue lyrica 150 mg daily and 200 mg hscontinue oxycodone 5 mg q 6 prncontinu e lidocaine patch right Diabetes mellitus 672421 09 E11.9 continue metformin 500 mg BIDcontinu e to monitor FS Essential hypertension 04079182 I10 continue lisinopril 5 mg dailyconti nue metoprolol 50 mg bidfurosem oxana 40 mg dailymonit or BP /labs Anemia 244248129 D64.9 H/H has been stable.con tinue ferrous sulfate 325 mg dailycolor is normal, there is no SOB, extremitie s are warm.monit or CBC [id number] MIRI NORTON [address] [place] [address] 08/15/2023 13:44:19 08/18/2023 13:20:18 Open wound of right foot [id number] S91.301A 07/19: s/p wound debridemen tcontinue wound treatment as ordered.fo llow up with BVS on 08/02 with new wound care orders-Wou nd care for R foot: Apply saline moistened Promogran over Puraply three times weekly.07/26 5 :s/p right foot debridemen t, applicatio n of skin substitute graftfollo w up appt 08/15 at [facility] with vascular. Peripheral vascular disease 851007456 I73.9 s/p right femoral endarterec bridget with completion angiogram3 15 s/p right femoral to anterior tibialis bypass s/p stent placement of the anterior tibialis along with debridemen t of the right dorsal foot wound.07/06 sp left TCAR and right foot debridemen t continue plavix 75 mg dailyconti nue eliquis 5 mg bidcontinu e aspirin 81 mg dailyconti nue lyrica 150 mg daily and 200 mg hscontinue oxycodone 5 mg q 6 prncontinu e lidocaine patch right Diabetes mellitus 805043 09 E11.9 continue metformin 500 mg BIDcontinu e to monitor FS Essential hypertension 67169814 I10 continue lisinopril 5 mg dailyconti nue metoprolol 50 mg bidfurosem oxana 40 mg dailymonit or BP /labs Anemia 231412820 D64.9 H/H 6.6/21.2- will repeat labsconsid er adding ascorbic acid dailyconti nue ferrous sulfate 325 mg dailycolor is normal, there is no SOB, extremitie s are warm.monit or CBC [id number] MIRI NORTON [address] [place] [address] 08/16/2023 08:21:08 08/18/2023 15:50:07 Open wound of right foot [id number] S91.301A see HPI with new finding today,07/19 : s/p wound debridemen :s/p right foot debridemen t, applicatio n of skin substitute graft08/10: tuesday morning sent back to S for excessive wound bleeding thru dressings- transfused 1 unit of packed red blood cells.08/11 : returned from [facility].: abnormal H/H 6.3/19.9 Peripheral vascular disease 270661943 I73.9 s/p right femoral endarterec bridget with completion angiogram s/p right femoral to anterior tibialis bypass s/p stent placement of the anterior tibialis along with debridemen t of the right dorsal foot wound.07/06 sp left TCAR and right foot debridemen t continue plavix 75 mg dailyconti nue eliquis 5 mg bidcontinu e aspirin 81 mg dailyconti nue lyrica 150 mg daily and 200 mg hscontinue oxycodone 5 mg q 6 prncontinu e lidocaine patch right Anemia 514442908 D64.9 H/H 6.3/19.9co ntinue ferrous sulfate 325 mg dailycolor is pale there is no SOB, extremitie s are warm, right foot cold. [id number] MIRI NORTON [facility] [address] [place] [address] [place] [address] 08/29/2023 12:13:56 09/05/2023 15:08:58 Amputated below knee 056533481 Z89.519 Critical limb ischemia of right lower extremity now s/p right below knee amputation .continue oxycodone 5 mg q 6 prnfollow up with vascular on 09/01/23 Peripheral vascular disease 224643540 I73.9 s/p below knee amputation continue asa, plavix and eliquiscon tinue oxycodonec ontinue lyrica 150 mg qd and 200 mg at HS Delirium 6129092 R41.0 resolved in acute careof note she is at baseline status, she is alert and oriented. Dysphagia 52663471 R13.1 0 resolvedsh e was seen by speech in acute acute care, continue reg diet with thin liquids Toxic encephalopathy 283 60718 G92.9 resolved in acute careammoni a level 20 on 08/24 Diabetes mellitus 543302 09 E11.9 continue metformin 500 mg BIDcontinu e to monitor FS Essential hypertension 91888826 I10 continue lisinopril 5 mg dailyconti nue metoprolol 50 mg bidfurosem oxana 40 mg dailymonit or BP /labs Hypothyroidism 94352168 E03.9 continue levothyrox ine 200 mcgtsh 8- recheck labs in 6-8 weeks Hyperlipidemia 67715028 E78.49 atorvastat in 40 mg dailymonit or lipids prn Anemia 635540915 D64.9 continue ferrous sulfate 325 mg dailycont. Vit D 1000u daily Constipation 75653650 K5 9.09 continue colace 100 mg bidschedul ed miralax 17 gm daily and senna 8.6 mg daily.incr ease oral hydration Anxiety 48080298 F41.9 continue ativan 0.5 mg q6 prnpsych eval and tx- she had recent amputation , I think she will benefit from speaking with psych, she will need support coping with limp loss. [id number] MIRI NORTON [address] [place] [address] [place] [address] 08/31/2023 10:12:07 09/05/2023 16:19:16 Cough 50585452 R05.9 08/29: non productive congested cough- is not interrupti ng with sleepchest xay showed no active infiltrate s or changes ofpulmonar y venous congestion or evidence of a pleural effusion.w ill start mucinex 600 mg q12 for 7 days and re eval. Amputated below knee 299 047220 Z89.519 Critical limb ischemia of right lower extremity now s/p right below knee amputation .continue oxycodone 5 mg q 6 prnfollow up with vascular on 09/01/23PT/O T eval and treatment for conditioni ng and strengthen ing. Peripheral vascular disease 086953722 I73.9 s/p below knee amputation continue asa, plavix and eliquiscon tinue oxycodonec ontinue lyrica 150 mg qd and 200 mg at HS Essential hypertension 22339746 I10 continue lisinopril 5 mg dailyconti nue metoprolol 50 mg bidfurosem oxana 40 mg dailymonit or BP /labs Hypothyroidism 97057008 E03.9 continue levothyrox ine 200 mcgtsh 8- recheck labs in 6-8 weeks Anxiety 42488788 F41.9 continue ativan 0.5 mg q6 prnpsych eval and tx- she had recent amputation , I think she will benefit from speaking with psych, she will need support coping with limp loss.mood is stable today. [id number] MIRI NORTON [address] [address] 09/05/2023 08:59:26 09/08/2023 16:20:28 Cough 58589844 R05.9 resolved Amputated below knee 299 587175 Z89.519 right below knee amputation .continue oxycodone 5 mg q 6 prncontinu e PT/OT eval and treatment for conditioni ng and strengthen ing.contin ue wound care Betadine, dry gauze, the stump fitting room attendant and the amputation shield. Peripheral vascular disease 925638690 I73.9 s/p below knee amputation continue asa, plavix and eliquiscon tinue oxycodonec ontinue lyrica 150 mg qd and 200 mg at HS Essential hypertension 76140407 I10 continue lisinopril 5 mg dailyconti nue metoprolol 50 mg bidfurosem oxana 40 mg dailymonit or BP /labs Hypothyroidism 00994911 E03.9 continue levothyrox ine 200 mcgtsh 8- recheck labs in 6-8 weeks Anxiety 90006956 F41.9 continue ativan 0.5 mg q6 prnshe was seen by psychiatric aides teacher who is recommendi ng starting duloxetine , benfits discuused ,patient will like to think about it. Carotid ar dahlia stenosis 81826800 I65.29 stent placement in juner. Amanda would like her on aspirin and plavix for 3 months post op, then can resume aspirin and eliquis.Sh e will need a carotid duplex later on this summer to recheck the right carotid, determine whether to reinterven e on the stent. [id number] MIRI NORTON JOSEY [address] [place] [address] 09/07/2023 11:22:32 09/09/2023 08:57:56 Amputated below knee 242283634 Z89.519 right below knee amputation .continue oxycodone 5 mg q 6 prncontinu e PT/OT eval and treatment for conditioni ng and strengthen ing.contin ue wound care Betadine, dry gauze, the stump fitting room attendant and the amputation shield. Peripheral vascular disease 592406593 I73.9 s/p below knee amputation continue asa, plavix and eliquiscon tinue oxycodonec ontinue lyrica 150 mg qd and 200 mg at HS Essential hypertension 80792559 I10 continue lisinopril 5 mg dailyconti nue metoprolol 50 mg bidfurosem oxana 40 mg dailymonit or BP /labs Hypothyroidism 22586151 E03.9 continue levothyrox ine 200 mcgtsh 8- recheck labs in 6-8 weeks Anxiety 50145226 F41.9 continue ativan 0.5 mg q6 prnshe was seen by psychiatric aides teacher who is recommendi ng starting duloxetine , benfits discuused ,patient will like to think about it. Carotid ar dahlia stenosis 05831730 I65.29 stent placement in juner. Marecki would like her on aspirin and plavix for 3 months post op, then can resume aspirin and eliquis.Sh e will need a carotid duplex later on this summer to recheck the right carotid, determine whether to reinterven e on the stent. [id number] MIRI NORTON [facility] JO[facility] [address] [place] [address] 09/12/2023 11:21:52 09/14/2023 16:46:41 Amputated below knee 156108005 Z89.519 right below knee amputation .continue oxycodone 5 mg q 6 prncontinu e PT/OT eval and treatment for conditioni ng and strengthen ing.contin ue wound care Betadine, dry gauze, the stump fitting room attendant and the amputation shield. Peripheral vascular disease 474631048 I73.9 s/p below knee amputation continue asa, plavix and eliquiscon tinue oxycodone Q 6continue lyrica 150 mg qd and 200 mg at HS Essential hypertension 86415828 I10 continue lisinopril 5 mg dailyconti nue metoprolol 50 mg bidfurosem oxana 40 mg dailymonit or BP /labs Hypothyroidism 58193922 E03.9 continue levothyrox ine 200 mcgtsh 8- recheck labs in 6-8 weeks Constipation 85836699 K5 9.09 she reports that she has not had a bowel movement in a few days( more than 3-4 days)there is no nausea, abd soft, no distention + BS x 4.continue colace 100 mg bidcontinu e miralax 17 gm daily and increase senna 8.6 mg to BIDnurses to give MOM and monitor, if no BM by tuesday evening, will order imaging.in crease oral hydration [id number] MIRI NORTON VINI DOWLING [address] [place] [address] 09/15/2023 09:07:09 09/21/2023 10:30:12 Amputated below knee 196833212 Z89.519 right below knee amputation .continue oxycodone 5 mg q 6 prncontinu e PT/OT eval and treatment for conditioni ng and strengthen ing.contin ue wound care Betadine, dry gauze, the stump fitting room attendant and the amputation shield. Peripheral vascular disease 839212473 I73.9 s/p below knee amputation continue asa, plavix and eliquiscon tinue oxycodone Q 6continue lyrica 150 mg qd and 200 mg at HS Essential hypertension 53761595 I10 continue lisinopril 5 mg dailyconti nue metoprolol 50 mg bidfurosem oxana 40 mg dailymonit or BP /labs Hypothyroidism 51945782 E03.9 labs completed on 09/06 seen today and noted with TSH 16.3 and T4 5.1she is currently taking levothyrox ine 200 mcg daily, will increase to 225 mcg and recheck 10/26 or sooner.she reports being tired at times but is not having any other sx at this time Constipation 93206666 K5 9.09 see hpinormact felipe bowel soundscont inue colace 100 mg bidcontinu e miralax 17 gm daily and increase senna 8.6 mg to BID [id number] Afia Tierney MD [address] [place] [address] 09/19/2023 15:52:03 09/21/2023 10:49:23 Amputated below knee 623289303 Z89.511 As above. Peripheral vascular disease 320512494 I73.89 S/P right BKA.Contin ue Plavix 75 mg qd, Eliquis 5 mg BID, ASA 81 mg qd, Lyrica 150 mg qAM and 200 mg qhs, lidocaine patch on in AM And off in PM, and oxycodone 5 mg q 6 hrs prnTo be on ASA and Plavix for 3 months after carotid stent, then can be on just ASA and Eliquis.F/ U with vascular on 10/22 as planned. Will get stapes out then and then can start fitting room attendant.P rosthetics consult when ready. Essential hypertension 38259798 I10 BP remains in good control on lisinopril 5 mg qd, metoprolol 50 mg BID, and furosemide 40 mg qdMonitor BP and labs. Hypothyroidism 18545100 E03.9 Last TSH sl. high, with nl FT4, but low FT3.Contin ue levothyrox ine 225 mcgRecheck TSH as planned. Constipation 51367044 K5 9.09 No c/o today.Cont inue bowel meds as ordered.Mo nitor bowel function. Carotid ar dahlia stenosis 82493143 I65.29 S/P stent placement in 06/2023.To be on ASA and Plavix x 3 months.The n can stop Plavix.To have repeat U/S next month [id number] MIRI NORTON [facility] [address] [place] [address] 09/22/2023 13:52:47 09/23/2023 15:18:26 Amputated below knee 388320547 Z89.519 right below knee amputation .continue oxycodone 5 mg q 6 prncontinu e PT/OT for conditioni ng and strengthen ing.contin ue wound care Betadine, dry gauze, the stump fitting room attendant and the amputation shield.lupe sing states wound healing without s/sx of infection. Peripheral vascular disease 057722189 I73.9 continue asa, plavix and eliquiscon tinue oxycodone Q 6continue lyrica 150 mg qd and 200 mg at HS Essential hypertension 22197042 I10 continue lisinopril 5 mg dailyconti nue metoprolol 50 mg bidfurosem oxana 40 mg dailymonit or BP /labs Hypothyroidism 99774339 E03.9 Continue levothyrox ine 225 mcgrecheck TSH around 10/26 [id number] MIRI NORTON [facility] [address] [place] [address] 09/27/2023 11:23:38 10/18/2023 07:43:35 Amputated below knee 226635047 Z89.519 right below knee amputation .continue oxycodone 5 mg q 6 prncontinu e PT/OT for conditioni ng and strengthen ing.contin ue wound care Betadine, dry gauze, the stump fitting room attendant and the amputation shield.lupe sing states wound healing without s/sx of infection. Peripheral vascular disease 024553115 I73.9 continue asa, plavix and eliquiscon tinue oxycodone Q 6continue lyrica 150 mg qd and 200 mg at HS Essential hypertension 82073154 I10 continue lisinopril 5 mg dailyconti nue metoprolol 50 mg bidfurosem oxana 40 mg dailymonit or BP /labs Hypothyroidism 07626096 E03.9 Continue levothyrox ine 225 mcgrecheck TSH around 8 Anxiety 19227103 F41.9 continue ativan 0.5 mg q6 prnshe has agreed to try antidepres santshe was started on fluoxetine 20 mg daily on 09/18will monitor mood and behavior Diabetes mellitus 018211 09 E11.9 no recent BGL, will order weekly checks.con tinue metformin 500 mg BIDcontinu e to monitor FS [id number] MIRI NORTON [address] [address] 10/04/2023 09:15:00 10/18/2023 08:13:38 Amputated below knee 001443988 Z89.519 right below knee amputation .continue oxycodone 5 mg q 6 prncontinu e PT/OT for conditioni ng and strengthen ing.contin ue wound care Betadine, dry gauze, the stump fitting room attendant and the amputation shield.lupe francisco states wound healing without s/sx of infection. she will have remaining stable removed this upcoming friday 10/06. Peripheral vascular disease 634282561 I73.9 continue asa, plavix and eliquiscon tinue oxycodone Q 6continue lyrica 150 mg qd and 200 mg at HS Essential hypertension 45302973 I10 continue lisinopril 5 mg dailyconti nue metoprolol 50 mg bidfurosem oxana 40 mg dailymonit or BP /labs Hypothyroidism 13571357 E03.9 Continue levothyrox ine 225 mcgrecheck TSH around 10/26 Anxiety 45107311 F41.9 continue ativan 0.5 mg q6 prnshe has agreed to try antidepres santshe was started on fluoxetine 20 mg daily on 09/18will monitor mood and behavior Diabetes mellitus 126192 09 E11.9 no recent BGL, will order weekly checks.con tinue metformin 500 mg BIDcontinu e to monitor FS7/724 BGL 120 [id number] MIRI NORTON [address] [address] 10/06/2023 08:54:05 10/18/2023 08:26:39 Amputated below knee 005793315 Z89.519 right below knee amputation .continue oxycodone 5 mg q 6 prn- will change to 24 prn and eventually stop of noted she has not used in 3 days.galindo nue PT/OT for conditioni ng and strengthen ing.contin ue wound care Betadine, dry gauze, the stump fitting room attendant and the amputation shield.wou nd healing without s/sx of infection. she will have remaining nehemias removed this upcoming friday 10/06. Peripheral vascular disease 635401671 I73.9 continue asa, plavix and eliquiscon tinue oxycodone Q 6continue lyrica 150 mg qd and 200 mg at HS Essential hypertension 82854010 I10 continue lisinopril 5 mg dailyconti nue metoprolol 50 mg bidfurosem oxana 40 mg dailymonit or BP /labs Anxiety 10048697 F41.9 continue ativan 0.5 mg q6 prnshe has agreed to try antidepres santshe was started on fluoxetine 20 mg daily on 09/18[facility] monitor mood and behavior [id number] MIRI NORTON [facility] [address] [place] [address] 10/10/2023 10:05:30 10/18/2023 09:02:23 Amputated below knee 037683210 Z89.519 right below knee amputation .remaining nehemias removed on 10/07/23- she has small superficia l open area moist and draining scant serous output. wound care for to cleanse with NS and apply aquacel cover with gauze.cont inue oxycodone 5 mg q 12 prn-contin ue PT/OT for conditioni ng and strengthen ing.contin ue wound care, the stump fitting room attendant and the amputation shieldwoun d healing without s/sx of infection. Peripheral vascular disease 797867722 I73.9 continue asa, plavix and eliquiscon tinue oxycodone Q 6continue lyrica 150 mg qd and 200 mg at HS Essential hypertension 60864336 I10 BP has been underconti nue lisinopril 5 mg dailyconti nue metoprolol 50 mg bidfurosem oxana 40 mg dailymonit or BP /labs Anxiety 93159363 F41.9 continue ativan 0.5 mg q6 prnshe has agreed to try antidepres santshe was started on fluoxetine 20 mg daily on 09/18will monitor mood and behavior Carotid ar dahlia stenosis 78912871 I65.29 10/09:Histo ry of bilateral TCAR and left carotid endarterec bridget.will need carotid duplex to be scheduled by vascularst ent placement in juner. Amanda would like her on aspirin and plavix for 3 months post op, then can resume aspirin and eliquis.Sh florentin will need a carotid duplex later on this summer to recheck the right carotid, determine whether to reinterven e on the stent. [id number] Tere HerreraMariajose MARTINI JOSEY [address] [facility] [place] [address] 10/14/2023 09:41:31 10/18/2023 09:28:24 Amputated below knee 343271226 Z89.519 does not need wrap. healedappl y skin prep BID nsg updated.wo rking with PTpain controlled . Vascular dementia 522451 004 F01.54 chronis stablediff iculty to recall thoughts and respond to questions. mood stablecont inue supportive caremonito r for decline. [id number] ZENOBIA BRADLEY JOSEY [address] [facility] [place] [address] 10/20/2023 09:58:42 10/22/2023 09:32:05 Amputated below knee 322815708 Z89.519 right below knee amputation .remaining nehemias removed on 10/07/23- continues to heal well.stop oxycodone 5 mg q 12 prn due to minimal usecontinu e PT/OT for conditioni ng and strengthen ing.contin ue wound care, the stump fitting room attendant and the amputation shieldwoun d healing without s/sx of infection. Peripheral vascular disease 005664286 I73.9 continue asa, plavix and eliquiscon tinue lyrica 150 mg qd and 200 mg at HS for pain mgmt Essential hypertension 64682975 I10 VSS, BP soft on occasionco ntinue lisinopril 5 mg dailyconti nue metoprolol 50 mg bidfurosem oxana 40 mg dailymonit or BP /labs Anxiety 44652433 F41.9 continue ativan 0.5 mg q6 prn - occasional use, discussed with nsg. will renew for another 14 days.Dulox etine 20 mg daily recently started, orly. well so far, nsg. feels it has been helping mood and behaviors. Continue to monitorPsy ch following as well. Carotid ar dahlia stenosis 31492729 I65.29 History of bilateral TCAR and left carotid endarterec bridget.s/p stent placement 06/2023Foll ow up unclear, mention of carotid duplex to be scheduled by vascularAl so still on plavix, rec. x 3 months post procedure, now at that time.Menti on of Vasc. follow up on 10/22, but not on calendar here.Discu ssed with nsg., will reach out to Dr. Patel's office about the ultrasound , plavix, and follow up appt. [id number] MIRI NORTON [address] [place] [address] 10/25/2023 10:59:01 10/26/2023 15:44:22 Amputated below knee 749706452 Z89.519 right below knee amputation , continues to heal well.now open to air ,wound healing without s/sx of infection. continue tylenol and lyrica Peripheral vascular disease 956577581 I73.9 continue asa, plavix and eliquiscon tinue lyrica 150 mg qd and 200 mg at [facility] for pain mgmtwill discuss need to continue plavix at vascular appt 10/28/23 Essential hypertension [id number] I10 continue lisinopril 5 mg dailyconti nue metoprolol 50 mg bidfurosem oxana 40 mg dailymonit or BP /labs Anxiety 16089730 F41.9 continue ativan 0.5 mg q6 prn - occasional use, discussed with nsg. will renew for another 14 days.Dulox etine 20 mg daily recently started, orly. well so far, nsg. feels it has been helping mood and behaviors. - seen by psychiatric aides teacher on 10/23 reports feeling some improvemen t with duloxetine , recommende d to continueCo ntinue to monitorPsy ch following as well. Carotid ar dahlia stenosis [id number] I65.29 History of bilateral TCAR and left carotid endarterec bridget.stent placement in june 2023will need carotid duplex to be scheduled by vascular at her next appt.Dr. Patel would like her on aspirin and plavix for 3 months post op, then can resume aspirin and eliquis.sherry lerma has carotid ultrasound scheduled for 10/27. decision to continue or stop plavix will be discussed at that appointmen t. [id number] MIRI NORTON [address] [place] [address] 10/26/2023 12:11:32 10/31/2023 16:07:08 COVID-19 [id number] U07.1 see hpiwill started paxlovid, isolation precaution supportati ve treatment: with mucinex 600 mg BID for 5 dayspaxlov id as orderedprn neb tx for sob. [id number] MIRI NORTON [address] [place] [address] 10/31/2023 16:29:45 11/01/2023 13:09:54 COVID-19 [id number] U07.1 she has been stable no reportable sx notedwill received last dose of paxlovid tonightiso lation precaution continue supportati ve treatment: prn neb tx for sob. Amputated below knee 299 257439 Z89.519 right below knee amputation , continues to heal well.now open to air ,wound healing without s/sx of infection. continue tylenol and lyrica Peripheral vascular disease 444290680 I73.9 continue asa, plavix and eliquiscon tinue lyrica 150 mg qd and 200 mg at HS for pain mgmtwill discuss need to continue plavix at vascular appt 10/28/23 Essential hypertension 44201162 I10 continue lisinopril 5 mg dailyconti nue metoprolol 50 mg bidfurosem oxana 40 mg dailymonit or BP /labs Anxiety 16877930 F41.9 continue ativan 0.5 mg q6 prn -continue Duloxetine 20 mg dailymood has been good.Galindo nue to monitorPsy ch following as well. Carotid ar dahlia stenosis 12167433 I65.29 History of bilateral TCAR and left carotid endarterec bridget.stent placement in june 2023will need carotid duplex to be scheduled by vascular at her next appt.Dr. Patel would like her on aspirin and plavix for 3 months post op, then can resume aspirin and eliquis.sherry lerma had carotid ultrasound scheduled for 10/27.- reschedule d due to covid decision to continue or stop plavix will be discussed at that appointmen tCandis [id number] MIRI NORTON [address] [place] [address] rd ANDREW HERNANDEZ [address] 11/04/2023 09:52:30 11/08/2023 11:09:10 COVID-19 [id number] U07.1 completed anti-viral . Amputated below knee 299 814327 Z89.519 right below knee amputation , continues to heal well.now open to air ,wound healing without s/sx of infection. continue tylenol and lyrica Peripheral vascular disease 024597913 I73.9 continue asa, plavix and eliquis- on hold for now for melenacont inue lyrica 150 mg qd and 200 mg at HS for pain mgmt Essential hypertension 00804995 I10 continue lisinopril 5 mg dailyconti nue metoprolol 50 mg bidfurosem oxana 40 mg dailymonit or BP /labs Anxiety 41089159 F41.9 continue ativan 0.5 mg q6 prn -continue Duloxetine 20 mg dailyConti nue to monitorPsy ch following as well. Carotid ar dahlia stenosis 66318930 I65.29 History of bilateral TCAR and left carotid endarterec bridget.stent placement in june 2023will need carotid duplex to be scheduled by vascular at her next appt.Dr. Patel would like her on aspirin and plavix for 3 months post op, then can resume aspirin and eliquis.sherry lerma had carotid ultrasound scheduled for 10/27.- reschedule d due to covid decision to continue or stop plavix will be discussed at that appointmen tCandis Chamberlain [id number] K92.1 11/02: nursing report black tarry stool, eliquis held, CBC ord.11/03: H/H 8.7-27.8 -plavix and asa placed on hold.Patiflorentin nt has no GI upset complaints .Will monitor for the next 2 days and repeat labs on Tuesday to include iron, ferritin and TIBCWill add protonix [address] daily prophylact icallynurs ing to monitor for and update provider if patient develops abdominal pain, indigestio n, hematemesi s, weakness, dizziness and or pallor. [id number] MIRI NORTON [address] [place] [address] ANDREW HERNANDEZ [address] 11/07/2023 08:49:06 11/09/2023 10:55:24 Melena 4843061 K92.1 11/06: continue to have black tarry stools- send to ED for eval.11/03: H/H 8.7-27.8 -plavix and asa placed on hold.11/02: nursing report black tarry stool, eliquis held, CBC ord.[place] t has no GI upset complaints .11/03 to include iron, ferritin and TIBC -completed noted abnormal. added protonix [address] daily prophylact icallynurs ing to monitor for and update provider if patient develops abdominal pain, indigestio n, hematemesi s, weakness, dizziness and or pallor. Anemia 545876053 D64.9 H/H trending down today noted at 09/12-signi ficant drop in 7 days tested 3 times. continue ferrous sulfate 325 mg dailycont. Vit D 1000u daily [id number] ZENOBIA Ulloa [address] [place] [address] ANDREW HERNANDEZ [address] 11/12/2023 07:51:13 11/18/2023 09:17:41 Anemia 443557555 D64.9 per [facility] [place]: Held Eliquis, aspirin and Plavix since that date. (11/02), patient is on triple therapy as an outpatient (per vascular surgery documentat ion and per coordinati on, Eliquis for her bypass patency) No evidence of active bleeding in house, however anemia suspected to be due to slow GI bleed, unknown site, in the setting of triple therapy (with aspirin, Plavix, Eliquis) Blood work obtained with hemoglobin 6 on admission [place] [facility] reports of blood in stool or melena during this hospitaliz ation S/p 1 PRBC, status post 1 liter fluid bolus in ED patient is on triple therapy as an outpatient (per vascular surgery documentat ion and per coordinati on, Eliquis for her bypass patency) it was determined to dc chris ramirez us sulfate 325 mg dailycont. 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 Hypothyroidism 01923162 E03.9 adjusted in hospitalco nt levothyrox ine 200 mcg po dailyreche ck tsh in 8 weeksmonit or Essential hypertension 85094495 I10 bp initially soft in hospital, lisinopril was held, now resolved and resumedcon tlisinopri l 5 mg po dailymetop rolol 50 mg po q 12 hoursmonit or Amputated below knee 299 536807 Z89.519 right below knee amputation , continues to heal well.galindo nue tylenol and lyricafu with vascular as planned Peripheral vascular disease 940126089 I73.9 eliquis on holdcontin ueasa, plavixlyri ca 150 mg qdmonitor Pressure i njury of coccygeal region of back stage II [id number] 8192376 L89.152 healing denuded skin to right coccyx11/11 apply barrier cream topically bid and prnfrequen t brief changes and reposition ingmonitor for infection Vascular dementia 697168 004 F01.54 stablediff iculty to recall thoughts and respond to questions at baseline per staffmood stablecont inue supportive caremonito r for decline. 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 (11/02), patient is on triple therapy as an outpatient (per vascular surgery documentat ion and per coordinati on, Eliquis for her bypass patency) No evidence of active bleeding in house, however anemia suspected to be due to slow GI bleed, unknown site, in the setting of triple therapy (with aspirin, Plavix, Eliquis) Blood work obtained with hemoglobin 6 on admission to [facility] reports of blood in stool or melena during this hospitaliz ation S/p 1 PRBC, status post 1 liter fluid bolus in ED patient is on triple therapy as an outpatient (per vascular surgery documentat ion and per coordinati on, Eliquis for her bypass patency) it was determined to dc eliquiscodelmar yuueferro us sulfate 325 mg dailycont. Vit D 1000u dailymonit or cbc and bmp weekly on mondays x 3 Anxiety 49897967 F41.9 while in hopsital her ativan 0.5 mg q6 prn was discontinu edcontinue Duloxetine 20 mg dailyConti nue to monitorPsy ch following as well. Hypothyroidism 57985161 E03.9 adjusted in hospitalco nt levothyrox ine 200 mcg po dailyreche ck tsh in 8 weeksmonit or Essential hypertension 95488398 I10 bp initially soft in hospital, lisinopril was held, now resolved and resumedcon tlisinopri l 5 mg po dailymetop rolol 50 mg po q 12 hoursmonit or Amputated below knee 299 528460 Z89.519 right below knee amputation , continues to heal well.galindo nue tylenol and lyricafu with vascular as planned Peripheral vascular disease 972329864 I73.9 eliquis on holdcontin ueasa, plavixlyri ca 150 mg qdmonitor Pressure i njury of coccygeal region of back stage II [id number] 4107217 L89.152 healing denuded skin to right coccyx11/11 apply barrier cream topically bid and prnfrequen t brief changes and reposition ingmonitor for infection Vascular dementia 031780 004 F01.54 stablediff iculty to recall thoughts and respond to questions at baseline per staffmood stablecont inue supportive caremonito r for decline. [id number] MIRI NORTON [address] [address] 11/17/2023 14:04:30 11/23/2023 09:14:45 Anxiety 81116154 F41.9 stableDulo xetine 20 mg dailyConti nue to monitorPsy ch following as well. Hypothyroidism 26930108 E03.9 adjusted in hospitalco nt levothyrox ine 200 mcg po dailyreche ck tsh in 8 weeksmonit or Essential hypertension 18030083 I10 stable-lis inopril 5 mg po dailymetop rolol 50 mg po q 12 hoursmonit or Amputated below knee 299 540836 Z89.519 right below knee amputation , continues to heal well.galindo nue tylenol and lyricafu with vascular as planned Peripheral vascular disease 841610812 I73.9 eliquis stoppedcon tinue:asa, plavixlyri ca 150 mg qdmonitor Vascular dementia 279286 [address] declinebas sahara difficulty with word findingmoo d stablecont inue supportive caremonito r for decline. Anemia 964888281 D64.9 continuefe rrous sulfate 325 mg dailycont. Vit D 1000u dailymonit or cbc and bmp weekly on mondays x 3 [id number] MIRI NORTON [address] [address] 11/21/2023 11:10:23 11/23/2023 10:20:09 Anxiety 64099727 F41.9 stableDulo xetine 20 mg dailyConti nue to monitorPsy ch following as well. Hypothyroidism 67707349 E03.9 adjusted in hospitalco nt levothyrox ine 200 mcg po dailyreche ck tsh in 8 weeksmonit or Essential hypertension 87260634 I10 stable-lis inopril 5 mg po dailymetop rolol 50 mg po q 12 hoursmonit or Amputated below knee 299 796777 Z89.519 right below knee amputation , continues to heal well.galindo nue tylenol and lyricafu with vascular as planned Peripheral vascular disease 324949672 I73.9 eliquis stoppedcon tinue:asa, plavixlyri ca 150 mg qdmonitor Vascular dementia 545756 [address] declinebas sahara difficulty with word findingmoo d stablecont inue supportive caremonito r for decline. Anemia 393433081 D64.9 continuefe rrous sulfate 325 mg dailycont. Vit D 1000u dailymonit or cbc and bmp weekly on mondays x 3 [id number] MIRI NORTON [address] [address] 11/29/2023 10:14:07 12/01/2023 14:32:41 Anxiety 75877578 F41.9 stablecont inue duloxetine 20 mg daily- she is having a positive response with med.Contin ue to monitorupd ate HDBH with concerns. Hypothyroidism 26190028 E03.9 adjusted in hospitalco nt levothyrox ine 200 mcg po dailyreche ck tsh in 8 weeks- ord for . 11/18monito r Essential hypertension 89739231 I10 continue lisinopril 5 mg po dailyconti nue metoprolol 50 mg po q 12 hoursmonit or Amputated below knee 299 680010 Z89.519 right below knee amputation , continues to heal well.galindo nue tylenol and lyricafu with vascular as planned Peripheral vascular disease 022536276 I73.9 eliquis stoppedcon tinue:asa, plavixlyri ca 150 mg qdmonitor Vascular dementia 613661 004 F01.54 expect declinebas sahara difficulty with word findingmoo d stablecont inue supportive caremonito r for decline. Anemia 114879394 D64.9 continuefe rrous sulfate 325 mg dailycont. Vit D 1000u dailymonit or cbc and bmp weekly on mondays x 39/3: H/H has been stable increasing every week. [id number] MIRI NORTON [address] [address] 12/01/2023 11:44:42 12/05/2023 13:22:49 Amputated below knee 721867653 Z89.519 right below knee amputation open wound noted on stump concerning for infection, yellowish drainage noted on dressing ,will send culture.co ntinue tylenol and lyricafu with vascular as planned Peripheral vascular disease 614611528 I73.9 eliquis stoppedcon tinue:asa, plavixlyri ca 150 mg qdmonitor Vascular dementia 257782 004 F01.54 expect declinebas sahara difficulty with word findingmoo d stablecont inue supportive caremonito r for decline. [id number] MIRI NORTON [address] [address] 12/05/2023 09:49:14 12/07/2023 10:15:18 Amputated below knee 610331641 Z89.519 right below knee amputation wound culture pendingcon tinue tylenol and lyricafu with vascular as planned Peripheral vascular disease 267034607 I73.9 eliquis stoppedcon tinue:asa, plavixlyri ca 150 mg qdmonitor Vascular dementia 293745 004 F01.54 expect declinebas sahara difficulty with word findingmoo d stablecont inue supportive caremonito r for decline. [id number] MIRI NORTON [address] [address] 12/12/2023 08:48:56 12/14/2023 08:51:51 Amputated below knee 558941812 Z89.519 right below knee amputation continue tylenol and lyricafu with vascular as planned on 12/16/23 Peripheral vascular disease 722688093 I73.9 eliquis stoppedcon tinue:asa, plavixlyri ca 150 mg qdmonitor Vascular dementia 756492 004 F01.54 expect declinebas sahara difficulty with word findingmoo d stablecont inue supportive caremonito r for decline. Subconjunc tival hemorrhage of left eye 9502217028 38002 H11.32 no pain or visual changesnur sing to update provider for changes in vision, pain or discharge. can apply warm compress for comfort if irritated. monitor for worsening sx, pt is on asa and plavix daily.H/H stable , will continue to monitor [id number] MIRI NORTON [address] [address] 12/19/2023 10:46:00 12/20/2023 13:37:52 Amputated below knee 483807023 Z89.519 right below knee amputation continue tylenol and lyricaVasc ular follow up on 12/15:There are 5 small open wounds along her BKA incision line.These wounds appear to be shallow and are covered with fibrinous exudateno foul odor,mild localized ed erythema surroundin g these wounds.Sta rted on santyl for chemical debridemen t.follow up with vascular in 3 weeks. Peripheral vascular disease 702099613 I73.9 12/15 carotid duplex shows 70 to 99% stenosis in her right ICA, this is s/p TCAR and she has a patent stent. Her left side shows 1 to 49% stenosis in the ICA with a patent stent.repe at duplex in 6 months eliquis stoppedcon tinue:asa, plavixlyri ca 150 mg qdmonitor Vascular dementia 768295 004 F01.54 expect declinebas sahara difficulty with word findingmoo d stablecont inue supportive caremonito r for decline. Subconjunc tival hemorrhage of left eye 6870948955 19580 H11.32 resolvingn o pain or visual changesnur sing to update provider for changes in vision, pain or discharge. can apply warm compress for comfort if irritated. monitor for worsening sx, pt is on asa and plavix daily.H/H stable , will continue to monitor Insomnia 820230246 G47.0 0 see HPIstop melatonins tart trazodone 50 mg at HSmonitor for effectiven ess [id number] MIRI NORTON VINI JOSEY [address] [facility] [address] 12/22/2023 11:08:23 12/23/2023 12:52:01 Amputated below knee 786970687 Z89.519 right below knee amputation continue tylenol and lyricaVasc ular follow up on 12/15:There are 5 small open wounds along her BKA incision line.These wounds appear to be shallow and are covered with fibrinous exudateno foul odor,mild localized ed erythema surroundin g these wounds.Sta rted on santyl for chemical debridemen t.follow up with vascular in 3 weeks.nurs ing updated to apply echo wrap daily with rationale to improve blood flow and promote wound healing. Peripheral vascular disease 455976236 I73.9 12/15 carotid duplex shows 70 to 99% stenosis in her right ICA, this is s/p TCAR and she has a patent stent. Her left side shows 1 to 49% stenosis in the ICA with a patent stent.repe at duplex in 6 monthsshe denies any chest pain or any extremity numbness or increasing weakness. eliquis stoppedcon tinue:asa, plavixlyri ca 150 mg qdmonitor Vascular dementia 038085 004 F01.54 expect declinebas sahara difficulty with word findingmoo d stablecont inue supportive caremonito r for decline. Subconjunc tival hemorrhage of left eye 8775348680 71926 H11.32 resolvingn o pain or visual changesnur sing to update provider for changes in vision, pain or discharge. can apply warm compress for comfort if irritated. monitor for worsening sx, pt is on asa and plavix daily.H/H stable , will continue to monitor Insomnia 008131724 G47.0 0 continue trazodone 50 mg at HS- will reassess at next visit.prakash cat for effectiven essdiscuss ed with patient avoiding caffeine drinks before bed, antidepres nuria and BP meds can causes insomnia. we discussed trying relaxation techniques such as deep breathing and guided imagery. [id number] MIRI NORTON [address] [facility] [place] [place] [address] 12/27/2023 14:42:28 12/28/2023 11:41:01 Amputated below knee 735943328 Z89.519 right below knee amputation continue tylenol and lyricaVasc ular follow up on 12/15:There are 5 small open wounds along her BKA incision line.- nursing to continue with wound careThese wounds appear to be shallow and are covered with fibrinous exudateno foul odor,mild localized ed erythema surroundin g these wounds.Sta rted on santyl for chemical debridemen t.follow up with vascular in 3 weeks.nurs ing updated to apply echo wrap daily with rationale to improve blood flow and promote wound healing. Peripheral vascular disease 256786703 I73.9 12/15 carotid duplex shows 70 to 99% stenosis in her right ICA, this is s/p TCAR and she has a patent stent. Her left side shows 1 to 49% stenosis in the ICA with a patent stent.repe at duplex in 6 monthsshe denies any chest pain or any extremity numbness or increasing weakness. eliquis stoppedcon tinue:asa, plavixlyri ca 150 mg qdmonitor Vascular dementia 322578 004 F01.54 expect declinebas sahara difficulty with word findingmoo d stablecont inue supportive caremonito r for decline. Subconjunc tival hemorrhage of left eye 7647859673 82407 H11.32 resolvingn o pain or visual changesnur sing to update provider for changes in vision, pain or discharge. can apply warm compress for comfort if irritated. monitor for worsening sx, pt is on asa and plavix daily.H/H stable , will continue to monitor Insomnia 597147875 G47.0 0 continue trazodone 50 mg at HS- will reassess at next visit.prakash cat for effectiven essdiscuss ed with patient avoiding caffeine drinks before bed, antidepres nuria and BP meds can causes insomnia. we discussed trying relaxation techniques such as deep breathing and guided imagery. [id number] MIRI NORTON [address] [place] [address] 01/02/2024 08:33:03 01/03/2024 11:47:07 Amputated below knee 234857731 Z89.519 followed closely by vascular.r ight below knee amputation continue tylenol and lyrica There are 5 small open wounds along her BKA incision line.- nursing to continue with wound careThese wounds appear to be shallow and are covered with fibrinous exudateno foul odor,mild localized ed erythema surroundin g these wounds.Sta rted on santyl for chemical debridemen t.nursing updated to apply echo wrap daily with rationale to improve blood flow and promote wound healing. Peripheral vascular disease 141918827 I73.9 12/15 carotid duplex shows 70 to 99% stenosis in her right ICA, this is s/p TCAR and she has a patent stent. Her left side shows 1 to 49% stenosis in the ICA with a patent stent.repe at duplex in 6 monthsshe denies any chest pain or any extremity numbness or increasing weakness. eliquis stoppedcon tinue:asa, plavixlyri ca 150 mg qdmonitor Vascular dementia 929527 [address] declinebas sahara difficulty with word findingmoo d stablecont inue supportive caremonito r for decline. Subconjunc tival hemorrhage of left eye 6670053709 19391 H11.32 resolvingn o pain or visual changesnur sing to update provider for changes in vision, pain or discharge. can apply warm compress for comfort if irritated. monitor for worsening sx, pt is on asa and plavix daily.H/H stable , will continue to monitor Insomnia 401048518 G47.0 0 continue trazodone 50 mg at HS-monitor for effectiven essdiscuss ed with patient avoiding caffeine drinks before bed, antidepres nuria and BP meds can causes insomnia. we discussed trying relaxation techniques such as deep breathing and guided imagery. Health Concerns Section Related Observation LastModified by Organization Detai ls LastModified Time None Recorded Concern Status LastModified by Organization Details LastModified Time None Recorded Advance Directives Directive Y: Payers Insurance Date Sequence Insurance Name Policy Number Policy Amin Covered Member ID Amin Member ID Guarantor Name 12/28/2023 2 [place] [facility] Marixa Chan [id number] Marixa Chan 12/27/2023 1 [place] [email or web address] Marixa Chan [id number] Marixa Chan Notes Date Note Type Note Provider Name and Address Organization Details Recorded Time 12/12/2023 text/html ROS as noted in the HPI This is a 68 yr old female patient with a past medical history that includes diabetes, hypertension, hyperlipidemia disease, peripheral artery disease, recent right foot debridement with skin grafts and R BKA in 07/2023. She was sent for h/h 09/13 and melena, transfused with 1 unit PRBCs and IVF, anemia suspected to be due to slow GI bleed, unknown site, in the setting of triple therapy (with aspirin, Plavix, Eliquis)Hosp summary: Patient was on triple therapy, discontinued Eliquis after speaking with vascular surgery, to continue on aspirin and Plavix for peripheral vascular disease. fu with vascular as planned.EGD/colonosco py was done on 11/09, per results, no evident bleeding lesions, evidence of esophagitis dissecans superficialis, hiatal hernia, evidence of prior sleeve gastrectomyPer GI recommendations, okay to resume prior diet, and antithrombotic therapy, no GI follow-up is needed unless warranted by results of current biopsies . Will continue PPI once daily on discharge. No melena found during hospitalization. While in the hospital her levothyroxine was decreased from 225 mcg to 200 mcg daily. Her lisinopril was held in the hospital due to a soft bp and resumed on discharge. Seen today for acute rounding visit MIRI NORTON [address] [facility] Center, [facility] [address], [place], [address], [employer] 12/12/2023 14:39:04 12/19/2023 text/html ROS as noted in the HPI This is a 68 yr old female patient with a past medical history that includes diabetes, hypertension, hyperlipidemia disease, peripheral artery disease, recent right foot debridement with skin grafts and R BKA in 07/2023. Seen for acute rounding visit.She is alert and verbal, denies any new discomfort. she is eating and drinking ok., she denies any cardiopulmonary complaints. she does reports trouble saying asleep at night, she report room mate is playing television all night. MIRI NORTON [address] [facility], [address], [place], [address], [employer] 12/20/2023 15:35:55 12/22/2023 text/html ROS as noted in the HPI This is a 68 yr old female patient with a past medical history that includes diabetes, hypertension, hyperlipidemia disease, peripheral artery disease, recent right foot debridement with skin grafts and R BKA in 07/2023. Seen for acute rounding visit. Patient is stable at her baseline. she is OOB sitting in wheelchair, she denies any new complaints. She does inquires about echo bandage that she should be wearing around her stump for compression. will discuss with nursing to ensure right stump is echo wrapped daily to improve blood flow to the heart and reduce tissue swelling. Patient does not have a stump strinker. MIRI NORTON [address] [facility] [address], [place], [address], [facility] [employer] 12/22/2023 16:22:53 12/27/2023 text/html ROS as noted in the HPI This is a 68 yr old female patient with a past medical history that includes diabetes, hypertension, hyperlipidemia disease, peripheral artery disease, recent right foot debridement with skin grafts and R BKA in 07/2023. Seen for acute rounding visit. Patient is stable at her baseline. she is OOB sitting in wheelchair, she denies any new complaints. She does inquires about echo bandage that she should be wearing around her stump for compression. will discuss with nursing to ensure right stump is echo wrapped daily to improve blood flow to the heart and reduce tissue swelling. Patient does not have a stump strinker. MIRI NORTON [address] [place] [address] [address], [place], [address], [facility] [employer] 12/27/2023 15:20:31 01/02/2024 text/html ROS as noted in the HPI This is a 68 yr old female patient with a past medical history that includes diabetes, hypertension, hyperlipidemia disease, peripheral artery disease, recent right foot debridement with skin grafts and R BKA in 07/2023. Seen for acute rounding visit. Patient is stable at her baseline. she is OOB sitting in wheelchair, she denies any new complaints. She does inquires about echo bandage that she should be wearing around her stump for compression. will discuss with nursing to ensure right stump is echo wrapped daily to improve blood flow to the heart and reduce tissue swelling. Patient does not have a stump strinker. MIRI NORTON [address] [facility], [facility] [address], [place], [address], [facility] [employer] 01/02/2024 13:22:00 OBGyn Episode No OBEpisode recorded.
--- OUTSIDE RECORDS SUMMARY | 2024-12-31 06:44 | XMS_ITS | Clinical Summary ---
Author Organization [facility] it Address [address] [place] [address] Care Team Providers Care Speech Therapy Teacher Name Role Phone Unavailable Primary Care Provider Unavailabl e Immunizations Immunization Administration Dates Next Due Pfizer SARS-CoV-2 COVID-19, mRNA, LNP-S, preservative free 07/02/2020,06/07/2020 Surgical History Surgery Date Site/Laterality Comments NECK SURGERY PROCEDURE: HISTORICAL NECK SURGERY; COMMENT: spinal stenosis TONSILLECTOMY PROCEDURE: HISTORICAL TONSILLECTOMY CHOLECYSTECTOMY 09/1989 PROCEDURE: HISTORICAL CHOLECYSTECTOMY BREAST REDUCTION PROCEDURE: [place] BREAST REDUCTION ROBOTIC ASSISTED HYSTERECTOMY 03/05/14 PROCEDURE: [...]
--- OUTSIDE RECORDS SUMMARY | 2024-12-31 06:45 | XMS_ITS | Encounter Summary ---
Author Organization [employer] Address [address] [facility] 7t [place] [address] Care Team Providers Care Information Resource Consultant Name Role Phone Unavailable Primary Care Provider Unavailabl e Encounter Details Date Type Department Care Team (Latest Contact Info) Description 06/29/2021 Abstract [facility] CONVERSIONS Dental, Provider, DDS Social [...]
--- OUTSIDE RECORDS SUMMARY | 2024-12-31 06:45 | XMS_ITS | Clinical Summary ---
Author Organization [facility] Address [address] [place] [address] Phone Care Team Providers Care Research Staff Member Name Role Phone Agueda Ann MD Primary Care Provider [phone] Andie Rossi MD Unavailable [phone] West Doll MD Unavailable [phone] Britany Coles MD Unavailable Naun Hoang MD [...] mouth daily. 4 Active neomycin/bacitra negrito/polymyxinB (NEOSPORIN, ZEH-[id number]-ZCSXK, TP) Apply 1 Application topically 2 (two) [...] 20 MG tabletIndication s:Coronary artery disease involving tazlina heart without angina pectoris, unspecified vessel or [...] an echo, and follow-up with her own publicity consultant who is at [facility]. Acquired hypothyroidism 09/04/2020 Assessment & Plan (12/26/2022 [...] like to little and she is established [facility] so I like her to see the client care representative there she understands and agrees this plan Assessment & Plan (05/17/2019 12:35 PM EST): She is working out, tracking her caloric intake and sticking to nutrition plan although she is under eating. No clear etiology for her weight gain. Start taking levothyroxine separately from the other medications. Check labs today. Make follow-up with client care representative CAD (coronary artery disease) 03/02/2019 Overview (03/02/2019): h/o stent Assessment & Plan (12/26/2022 3:02 PM EDT): No active cp or acute concern -Continue court monitor -Continue aspirin, atorvastatin, Plavix, and Zetia [...] and chronic pain. Certainly would benefit from DRY PRESS OPERATOR services and I have discussed with [...] pt can establish with someone new at [facility]. Assessment & Plan (01/21/2021 12:34 PM EDT): [...] and gait. She will be going to [facility] physical medicine and rehabilitation in [place] for this. IgG monoclonal gammopathy Assessment & Plan (03/02/2019 12:15 PM EST): Patient denies ever seeing hematology, has never heard this diagnosis and does not think that she has this. As I do not have records it is difficult for me to understand where this came from. I would like to review her [facility] records and if necessary we will do [...] appt for Neuro muscular in Dec at [facility] No further pain. F/u as needed Assessment [...] this topic Medical Devices Implanted Type Area [employer] Assembly Line Worker Device Identifier Shelf Expiration Date Model / Serial / Lot Stent Supera 6fr 5.5mm 120mm 120cm .014in Otw Vascular Peripheral Nitinol Self Expanding Closed End Braided - [id number] Implanted:Qty: 1 on 11/18/2022 by David Mendez MD at [facility] Stent [employer] 04/27/2024 [id number] / / [id number] Cardiac Stent Neck Hardware Procedures Procedure Name [...] EST) SODIUM 137 133 - 146 mmol/L [facility] CHLORIDE 101 96 - 108 mmol/L [facility] POTASSIUM 4.1 3.3 - 5.1 mmol/L [facility] CO2 24 21 - 35 mmol/L [facility] BUN 27(H) 6 - 19 mg/dL [facility] CREATININE 0.50 0.5 - 1.5 mg/dL [facility] GLUCOSE 103(H) 70 - 99 mg/dL [facility] CALCIUM 9.0 8.4 - 10.3 mg/dL [facility] EGFR 103 >59 mL/min/1.7 3m2 [facility] Comment:Estimated glomerular filtration rate calculated using the CKD-EPI refit equation. ANION GAP 16 10 - 20 mmol/L [facility] Blood 05/23/2023 4:12 PM EST 05/23/2023 4:32 PM EST Mely Padron PA-C LAB BLOOD ORDERABLES Final R esult [address] [address] * (ABNORMAL) TSH with reflex (01/13/2023 7:58 AM EDT) TSH 0.03(L) 0.27 - 4.20 uIU/mL [facility] Blood 01/13/2023 7:58 AM EDT 01/13/2023 8:03 AM EDT Agueda Ann MD LAB BLOOD ORDERABLES Final Resul t Performing Organization Address City/[facility]/ZIP Co de Phone Number [address] [address] * (ABNORMAL) Lipid panel (12/25/2022 5:22 AM EDT) HDL 46 mg/dL [facility] Comment: Interpretation <40 mg/dL: Low HDL cholesterol (major risk factor for CHD) Greater than or equal to 60 mg/dL: High HDL cholesterol ( negative risk factor for CHD) HDL - cholesterol is affected by a number of factors, e.g. smoking, excerise, hormones, sex and age. CHOLESTEROL 98 0 - 240 mg/dL [facility] TRIGLYCERIDES 86 30 - 160 mg/dL [facility] LDL 35(L) 50 - 129 mg/dL [facility] Comment: LDL levels in terms of risk for coronary heart disease: <100 mg/dL: Optimal 100-129 mg/dL: Near or above optimal 130-159 mg/dL: Borderline high 160-189 mg/dL: High >190 mg/dL: Very High CARDIAC RISK RATIO 2.1(L) 3.3 - 4.4 [facility] Blood 12/25/2022 5:22 AM EDT 12/25/2022 6:22 AM EDT us Kayley Ribera NP LAB BLOOD ORDERABLES Fi nal Result [address] [address] * MAMMOGRAPHY FOR RESULT ENTRY ONLY (07/07/2022) us Agueda Ann MD HEALTH MAINTENANCE Edited Result - Final from Last 3 Months or Most Recently Relevant to Health Maintenance Insurance MEDICARE PART [place] & [place] [facility] [place] [facility] [place] & B [facility] MEDICARE PART A & [place] & B [facility] Advance Directives For more information, please contact: [phone] (9AM - 5PM [facility], Tuesday-Tuesday) Documents on File Type Date Recorded Patient Senior Regulatory Affairs Specialist Expl anation Healthcare Proxy 11/08/2022 6:36 [...] Code Status Confirmed With: Patient Care Teams Research Staff Member Relationship Specialty Start Date End Date Agueda Ann MD [address] [place] [address] PCP - General Family Medicine 02/01/19 Andie Rossi MD [address] [place] [address] Neurology 03/02/19 West Doll MD [address] [place] [address] 104 [place] [address] Cardiology 03/02/19 Britany Coles MD [address] [place] [address] 140 [place] [address] [email or web address] Orthopedic Surgery 03/02/19 Naun Hoang MD [address] [address] Infectious Diseases 03/02/19 Additional Source Comments The information contained in this document represents components of the legal health record. It is not the complete legal health record.[facility]
--- OUTSIDE RECORDS SUMMARY | 2024-12-31 06:45 | XMS_ITS | Encounter Summary ---
Author Organization [facility] Address [address] [place] [address] Phone Care Team Providers Care Independent Driver Name Role Phone Agueda Ann MD Primary Care Provider [phone] Andie Rossi MD Unavailable [phone] West Doll MD Unavailable [phone] Britany Coles MD Unavailable [phone] Naun Hoang MD Unavailable + Agueda Ann MD Unavailable Mely Bhatti RN Unavailable [email or web address] Encounter Details Date Type Department Care Team (Late st Contact Info) Description 12/25/2022 Procedure Pass [facility] [address] [place] [address] Social History Tobacco Use Types Packs/Day Years [...] high school, GED, job training, learning the Slovak language, technical skills, or developing parenting skills)? [...] documented as of this encounter Care Teams Independent Driver Relationship Specialty Start Date End Date Agueda Ann MD [address] [place] [address] [email or web address] PCP - General Family Medicine 02/01/19 Andie Rossi MD [address] [place] [address] Neurology 03/02/19 West Doll MD [address] [place] [address] 104 [place] [address] Cardiology 03/02/19 Britany Coles MD [address] [place] [address] 140 [place] [phone] Orthopedic Surgery 03/02/19 [place] [address] [place] [address] Infectious Diseases 03/02/19 Agueda Ann MD [address] [address] [email or web address] Insurance Assigned Provider 07/02/23 04/02/24 Mely Bhatti RN [address] [address] [email or web address] Safety Teacher 05/12/23 06/09/23 documented as of this encounter Additional Source Comments The information contained in this document represents components of the legal health record. It is not the complete legal health record.[facility]
--- OUTSIDE RECORDS SUMMARY | 2024-12-31 06:45 | XMS_ITS | Encounter Summary ---
Author Organization [facility] Address [address] [place] [address] Phone Care Team Providers Care Special Needs Tutor Name Role Phone Agueda Ann MD Primary Care Provider [phone] Andie Rossi MD Unavailable [phone] West Doll MD Unavailable [phone] Britany Coles MD Unavailable Naun Hoang MD Unavailable + Agueda Ann MD Unavailable Mely Bhatti RN Unavailable [email or web address] Encounter Details Date Type Department Care Team (Late st Contact Info) Description 12/24/2022 Procedure Pass [facility], [facility] [address] [place] [address] Social History Tobacco Use Types Packs/Day Years [...] high school, GED, job training, learning the Latvian language, technical skills, or developing parenting skills)? [...] 12/24/2022 9:29 AM Natalya Menon, NICOLE * [place] Suicide Severity Rating Scale (Screener/Recent Self-Report) Question [...] documented as of this encounter Care Teams Special Needs Tutor Relationship Specialty Start Date End Date Agueda Ann MD [address] [address] [email or web address] PCP - General Family Medicine 02/01/19 Andie Rossi MD [address] [place] [address] Neurology 03/02/19 West Doll MD [address] [place] [address] 104 [place] [address] Cardiology 03/02/19 Britany Coles MD [address] [place] [address] 140 [place] [phone] [email or web address] Orthopedic Surgery 03/02/19 Naun Hoang MD [address] [place] [address] Infectious Diseases 03/02/19 Agueda Ann MD [address] [address] [email or web address] Insurance Assigned Provider 4/6/24 1/6/25 Mely Bhatti, NICOLE [address] [place] [address] [email or web address] Automotive Generator Repairer 05/12/23 06/09/23 documented as of this encounter Additional Source Comments The information contained in this document represents components of the legal health record. It is not the complete legal health record.[facility]
--- OUTSIDE RECORDS SUMMARY | 2024-12-31 06:45 | XMS_ITS | Encounter Summary ---
Author Organization [facility] Address [address] [place] [address] Phone Care Team Providers Care Military Science Instructor Name Role Phone Agueda Ann MD Primary Care Provider Andie Rossi MD Unavailable West Doll MD Unavailable Britany Coles MD Unavailable Naun Hoang MD Unavailable + Agueda Ann MD Unavailable Mely Bhatti RN Unavailable [email or web address] Encounter Details Date Type Department Care Team (Late st Contact Info) Description 12/24/2022 Procedure Pass [facility], [facility] [address] [place] [address] Social History Tobacco Use Types Packs/Day Years [...] high school, GED, job training, learning the Bulgarian language, technical skills, or developing parenting skills)? [...] 9:29 AM ALEKT Natalya Delgadillo RN * [place] Suicide Severity Rating Scale (Screener/Recent Self-Report) Question Answer Date of Assessment Author 1. Wish to be (Past 1 Month) No 023 9:29 AM EDT Natalya Delgadillo RN 2. Non-Specific Active Suici minerva Thoughts (Past 1 Month) No 12/24/2022 9:29 AM EDT Natayla Delgadillo RN 6. Suicidal Behavior (Lifetime) No 9:29 AM EDT Natalya Delgadillo RN documented as of this encounter Plan of Treatment Not on file documented as of this encounter Visit Diagnoses Not on filedocumented in this encounter Additional Health Concerns Assessment Noted Time PHQ-2 Depression Total Score: 0 01/21/20 21 11:07 AM EDT documented as of this encounter Care Teams Military Science Instructor Relationship Specialty Start Date End Date Agueda Ann MD [address] [address] [email or web address] PCP - General Family Medicine 02/01/19 Andie Rossi MD [address] [place] [address] Neurology 03/02/19 West Doll MD [address] [place] [address] 104 [place] [address] Cardiology 03/02/19 Britany Coles MD [address] [place] [address] 140 [place] [phone] [email or web address] 03/02/19 Naun Hoang MD [address] [place] [address] Infectious Diseases 03/02/19 Agueda Ann MD [address] [address] [email or web address] Insurance Assigned Provider 07/02/23 04/02/24 Mely Bhatti, NICOLE [address] [address] [email or web address] Building And Construction Manager 05/12/23 06/09/23 documented as of this encounter Additional Source Comments The information contained in this document represents components of the legal health record. It is not the complete legal health record.[facility]
--- OUTSIDE RECORDS SUMMARY | 2024-12-31 06:45 | XMS_ITS | Encounter Summary ---
Author Organization [employer] Address [address] [facility] 7t [place] [address] Care Team Providers Care Senior Premium Auditor Name Role Phone Unavailable Primary Care Provider Unavailabl e Encounter Details Date Type Department Care Team (Latest Contact Info) Description 07/09/2020 Abstract [facility] CONVERSIONS Dental, Provider, DDS Social History [...]
--- OUTSIDE RECORDS SUMMARY | 2024-12-31 06:45 | XMS_ITS | Encounter Summary ---
Author Organization [employer] Address [address] [facility] [address] 7t [place] [address] Care Team Providers Care Yard Laborer Name Role Phone Unavailable Primary Care Provider Unavailabl e Reason for Visit * Reason Onset Date Comments medical clearance 05/27/2022 Encounter Details Date Type Department Care Team (Late st Contact Info) Description 05/27/2022 Telephone [facility] ADULT [facility] [address] [place] [address] Davonte Cunningham DDS medical clearance Social History [...] was for medical clearance. Pls re send [phone] * Telephone Encounter - Lucina Leigh - [...] was for medical clearance. Pls re send [phone] documented in this encounter Plan of Treatment Not on file documented as of this encounter Visit Diagnoses Not on filedocumented in this encounter
--- OUTSIDE RECORDS SUMMARY | 2024-12-31 06:45 | XMS_ITS | Encounter Summary ---
Author Organization [facility] Address [address] [place] [address] Phone Care Team Providers Care Cytogenetics Technologist Name Role Phone Agueda Ann MD Primary Care Provider [phone] Andie Rossi MD Unavailable West Doll MD Unavailable Britany Coles MD Unavailable Naun Hoang MD Unavailable + Agueda Ann MD Unavailable Latosha Garcia OT Unavailable [phone] Latosha Garcia OT Unavailable [phone] Mely Bhatti RN Unavailable [email or web address] Encounter Details Date Type Department Care Team (Late st Contact Info) Description 11/04/2022 Procedure Pass [facility] 30 [place] [address] Social History Tobacco Use Types Packs/Day Years [...] 11/04/2022 1:06 AM Lucita Hirsch, NICOLE * [place] Suicide Severity Rating Scale (Screener/Recent Self-Report) Question [...] documented as of this encounter Care Teams Cytogenetics Technologist Relationship Specialty Start Date End Date Agueda Ann MD [address] [address] [email or web address] PCP - General Family Medicine 02/01/19 Andie Rossi MD [address] [place] [address] Neurology 03/02/19 West Doll MD [address] [place] [address] 104 [place] [address] Cardiology 03/02/19 Britany Coles MD [address] [place] [address] 140 [place] [phone] [email or web address] 03/02/19 Naun Hoang MD [address] [place] [address] Infectious Diseases 03/02/19 Agueda Ann MD [address] [address] [email or web address] Insurance Assigned Provider 07/02/23 04/02/24 Latosha Garcia, OT 30 [place] [address] [email or web address] [employer] Wool InsulatorBiomedical Service Engineer Therapy 11/05/22 11/07/22 Latosha Garcia, OT 30 [place] [address] [email or web address] Trans[employer] Rock Wool InsulatorBiomedical Service Engineer Therapy 11/24/22 11/25/22 Mely Bhatti RN 30 [place] [address] [email or web address] Wool Insulator 05/12/23 06/09/23 documented as of this encounter Additional Source Comments The information contained in this document represents components of the legal health record. It is not the complete legal health record.[facility]
--- OUTSIDE RECORDS SUMMARY | 2024-12-31 06:45 | XMS_ITS | Encounter Summary ---
Author Organization [employer] Address [address] [facility] 7t [place] [address] Care Team Providers Care Forestry Technician Name Role Phone Unavailable Primary Care Provider Unavailabl e Encounter Details Date Type Department Care Team (Latest Contact Info) Description 05/02/2018 Abstract [facility] CONVERSIONS Dental, Provider, DDS Social History [...]
--- OUTSIDE RECORDS SUMMARY | 2024-12-31 06:45 | XMS_ITS | Encounter Summary ---
Author Organization [facility] Address [address] [place] [address] Phone Care Team Providers Care Oil Painter Name Role Phone Agueda Ann MD Primary Care Provider [phone] Andie Rossi MD Unavailable West Doll MD Unavailable Britany Coles MD Unavailable [phone] Naun Hoang MD Unavailable + Agueda Ann MD Unavailable Mely Bhatti RN Unavailable [email or web address] Encounter Details Date Type Department Care Team (Late st Contact Info) Description 12/24/2022 Procedure Pass [facility], [facility] 30 [place] [address] Social History Tobacco Use Types Packs/Day Years [...] high school, GED, job training, learning the Syriac language, technical skills, or developing parenting skills)? [...] 12/24/2022 9:29 AM Natalya Menon, NICOLE * [place] Suicide Severity Rating Scale (Screener/Recent Self-Report) Question [...] documented as of this encounter Care Teams Oil Painter Relationship Specialty Start Date End Date Agueda Ann MD [address] [address] [email or web address] PCP - General Family Medicine 02/01/19 Andie Rossi MD [address] [place] [address] Neurology 03/02/19 West Doll MD [address] [place] [address] 104 [place] [address] Cardiology 03/02/19 Britany Coles MD [address] [place] [address] 140 [place] [phone] [email or web address] 03/02/19 Naun Hoang MD [address] [place] [address] Infectious Diseases 03/02/19 Agueda Ann MD [address] [address] [email or web address] Insurance Assigned Provider 4/6/24 1/6/25 Mely Bhatti, NICOLE [address] [place] [address] [email or web address] iCMP Truck Body Builder Apprentice 05/12/23 06/09/23 documented as of this encounter Additional Source Comments The information contained in this document represents components of the legal health record. It is not the complete legal health record.[facility]
--- OUTSIDE RECORDS SUMMARY | 2024-12-31 06:45 | XMS_ITS | Clinical Summary ---
Author Organization [employer] Address [address] [facility] 7t [place] [address] Care Team Providers Care Manager Support Name Role Phone Unavailable Primary Care Provider [...] Most Recently Relevant to Health Maintenance Insurance [facility] MEDICAID STAND ADULT
--- OUTSIDE RECORDS SUMMARY | 2024-12-31 06:45 | XMS_ITS | Encounter Summary ---
Author Organization [facility] Address [address] [place] [address] Phone Care Team Providers Care Electrical And Instrument Technician Name Role Phone Agueda Ann MD Primary Care Provider [phone] Andie Rossi MD Unavailable [phone] West Doll MD Unavailable Britany Coles MD Unavailable Naun Hoang MD Unavailable + Agueda Ann MD Unavailable Mely Bhatti RN Unavailable [email or web address] Encounter Details Date Type Department Care Team (Late st Contact Info) Description 12/24/2022 Procedure Pass [facility], [facility] - [facility] 30 [place] [address] Social History Tobacco Use Types Packs/Day Years [...] 9:29 AM ALEKT Natalya Delgadillo RN * [place] Suicide Severity Rating Scale (Screener/Recent Self-Report) Question [...] documented as of this encounter Care Teams Electrical And Instrument Technician Relationship Specialty Start Date End Date Agueda Ann MD [address] [address] [email or web address] PCP - General Family Medicine 02/01/19 Andie Rossi MD [address] [place] [address] Neurology 03/02/19 West Doll MD [address] [place] [address] 104 [place] [address] Cardiology 03/02/19 Britany Coles MD [address] [place] [address] 140 [place] [phone] [email or web address] Orthopedic Surgery 03/02/19 Naun Hoang MD [address] [place] [address] Infectious Diseases 03/02/19 Agueda Ann MD [address] [address] [email or web address] Insurance Assigned Provider 07/02/23 04/02/24 Mely Bhatti, NICOLE [address] [address] [email or web address] 05/12/23 06/09/23 documented as of this encounter Additional Source Comments The information contained in this document represents components of the legal health record. It is not the complete legal health record.[facility]
--- OUTSIDE RECORDS SUMMARY | 2024-12-31 06:45 | XMS_ITS | Encounter Summary ---
Author Organization [facility] Address [address] [place] [address] Phone Care Team Providers Care Viscose Cellar Charge Hand Name Role Phone Agueda Ann MD Primary Care Provider [phone] Andie Rossi MD Unavailable [phone] West Doll MD Unavailable Britany Coles MD Unavailable Naun Hoang MD Unavailable + Agueda Ann MD Unavailable Mely Bhatti RN Unavailable [email or web address] Encounter Details Date Type Department Care Team (Late st Contact Info) Description 12/25/2022 Procedure Pass [facility] 30 [place] [address] Social History Tobacco Use Types Packs/Day Years [...] documented as of this encounter Care Teams Viscose Cellar Charge Hand Relationship Specialty Start Date End Date Agueda Ann MD [address] [place] [address] [email or web address] PCP - General Family Medicine 02/01/19 Andie Rossi MD 48 [place] [address] Neurology 03/02/19 West Doll MD [address] [place] [address] 104 [place] [address] Cardiology 03/02/19 Britany Coles MD [address] [place] [address] 140 [place] [address] [email or web address] Orthopedic Surgery 03/02/19 [place] [address] [place] [address] Infectious Diseases 03/02/19 Agueda Ann MD [address] [address] [email or web address] Insurance Assigned Provider 07/02/23 04/02/24 Mely Bhatti RN [address] [address] [email or web address] iCMP Technical Planner 05/12/23 06/09/23 documented as of this encounter Additional Source Comments The information contained in this document represents components of the legal health record. It is not the complete legal health record.[facility]
--- OUTSIDE RECORDS SUMMARY | 2024-12-31 06:45 | XMS_ITS | Encounter Summary ---
Author Organization [facility] Address [address] [place] [address] Phone Care Team Providers Care Tube Former Operator Name Role Phone Agueda Ann MD Primary Care Provider [phone] Andie Rossi MD Unavailable West Doll MD Unavailable Britany Coles MD Unavailable [phone] Naun Hoang MD Unavailable + Agueda Ann MD Unavailable Latosha Garcia OT Unavailable [phone] Latosha Garcia OT Unavailable [phone] Mely Bhatti RN Unavailable [email or web address] Encounter Details Date Type Department Care Team (Late st Contact Info) Description 10/04/2019 Ancillary Orders [facility],Outside Imaging 30 [place] [address] System, Provider Not In, PhD Partners [address] [address] Social History Tobacco Use Types Packs/Day Years [...] documented as of this encounter Care Teams Tube Former Operator Relationship Specialty Start Date End Date Agueda Ann MD [address] [address] PCP - General Family Medicine 02/01/19 Andie Rossi MD 48 [place] [address] Neurology 03/02/19 West Doll MD [address] [place] [address] 104 [place] [address] Cardiology 03/02/19 Britany Coles MD [address] [place] [address] 140 [place] [phone] [email or web address] [email or web address] Surgery 03/02/19 [place] [address] [place] [address] Infectious Diseases 03/02/19 Agueda Ann MD [address] [address] [email or web address] Insurance Assigned Provider 07/02/23 04/02/24 Latosha Garcia, OT 30 [place] [address] [email or web address] Transitions Jig Boring Machine Set Up OperatorLumber Racker Therapy 11/05/22 11/07/22 Latosha Garcia, OT 30 [place] [address] [email or web address] Transitions Jig Boring Machine Set Up OperatorLumber Racker Therapy 11/24/22 11/25/22 Mely Bhatti, NICOLE 30 [place] [address] [email or web address] iCMP Jig Boring Machine Set Up Operator 05/12/23 06/09/23 documented as of this encounter Additional Source Comments The information contained in this document represents components of the legal health record. It is not the complete legal health record.[facility]
--- OUTSIDE RECORDS SUMMARY | 2024-12-31 06:45 | XMS_ITS | Encounter Summary ---
Author Organization [facility] Address [address] [place] [address] Phone Care Team Providers Care Knitting Supervisor Name Role Phone Agueda Ann MD Primary Care Provider [phone] Andie Rossi MD Unavailable West Doll MD Unavailable Britany Coles MD Unavailable [phone] Naun Hoang MD Unavailable + Agueda Ann MD Unavailable Mely Bhatti RN Unavailable [email or web address] Encounter Details Date Type Department Care Team (Late st Contact Info) Description 12/24/2022 Procedure Pass [facility], [facility] 30 [place] [address] Social History Tobacco Use Types Packs/Day Years [...] high school, GED, job training, learning the Armenian language, technical skills, or developing parenting skills)? [...] 12/24/2022 9:29 AM Natalya Menon, NICOLE * [place] Suicide Severity Rating Scale (Screener/Recent Self-Report) Question [...] documented as of this encounter Care Teams Knitting Supervisor Relationship Specialty Start Date End Date Agueda Ann MD [address] [address] [email or web address] PCP - General Family Medicine 02/01/19 Andie Rossi MD [address] [place] [address] Neurology 03/02/19 West Doll MD [address] [place] [address] 104 [place] [address] Cardiology 03/02/19 Britany Coles MD [address] [place] [address] 140 [place] [address] [email or web address] Orthopedic Surgery 03/02/19 Naun Hoang MD [address] [place] [address] Infectious Diseases 03/02/19 Agueda Ann MD [address] [address] [email or web address] Insurance Assigned Provider 4/6/24 1/6/25 Mely Bhatti, NICOLE [address] [place] [address] [email or web address] iCMP Chief Technician X Ray 05/12/23 06/09/23 documented as of this encounter Additional Source Comments The information contained in this document represents components of the legal health record. It is not the complete legal health record.[facility]
--- OUTSIDE RECORDS SUMMARY | 2024-12-31 06:45 | XMS_ITS | Encounter Summary ---
Author Organization [facility] Address [address] [place] [address] Phone Care Team Providers Care Supervisor Receiving And Processing Name Role Phone Agueda Ann MD Primary Care Provider [phone] Andie Rossi MD Unavailable [phone] West Doll MD Unavailable [phone] Britany Coles MD Unavailable [phone] Naun Hoang MD Unavailable + Agueda Ann MD Unavailable Latosha Garcia OT Unavailable [phone] Latosha Garcia OT Unavailable [phone] Mely Bhatti RN Unavailable [email or web address] Encounter Details Date Type Department Care Team (Late st Contact Info) Description 07/31/2021 Procedure Pass [facility] Admitting Dept Virtual Department 30 [place] [address] Social History Tobacco Use Types Packs/Day Years [...] documented as of this encounter Care Teams Supervisor Receiving And Processing Relationship Specialty Start Date End Date Agueda Ann MD [address] [place] [address] PCP - General Family Medicine 02/01/19 Andie Rossi MD [address] [place] [address] Neurology 03/02/19 West Doll MD [address] [place] [address] Cardiology 03/02/19 Britany Coles MD [facility] 140 [place] [phone] [email or web address] [email or web address] 03/02/19 Naun Hoang MD [address] [facility] [address] [place] [address] Infectious Diseases 03/02/19 Agueda Ann MD [address] [address] [email or web address] Insurance Assigned Provider 07/02/23 04/02/24 Latosha Garcia, OT 30 [place] [address] [email or web address] Transitions Dough Cutting Machine OperatorSuperintendent Fish Hatchery Therapy 11/05/22 11/07/22 Latosha Garcia, OT 30 [place] [address] [email or web address] Transitions Dough Cutting Machine OperatorSuperintendent Fish Hatchery Therapy 11/24/22 11/25/22 Mely Bhatti RN 30 [place] [address] [email or web address] iCMP Dough Cutting Machine Operator 05/12/23 06/09/23 documented as of this encounter Additional Source Comments The information contained in this document represents components of the legal health record. It is not the complete legal health record.[facility]
--- OUTSIDE RECORDS SUMMARY | 2024-12-31 06:45 | XMS_ITS | Encounter Summary ---
Author Organization [facility] Address [address] [place] [address] Phone Care Team Providers Care Lumber Sales Supervisor Name Role Phone Agueda Ann MD Primary Care Provider [phone] Andie Rossi MD Unavailable West Doll MD Unavailable Britany Coles MD Unavailable Naun Hoang MD Unavailable + Agueda Ann MD Unavailable Mely Bhatti RN Unavailable [email or web address] Encounter Details Date Type Department Care Team (Late st Contact Info) Description 12/24/2022 Procedure Pass [facility], [facility] 30 [place] [address] Social History Tobacco Use Types Packs/Day Years [...] 12/24/2022 9:29 AM Natalya Menon, NICOLE * [place] Suicide Severity Rating Scale (Screener/Recent Self-Report) Question [...] documented as of this encounter Care Teams Lumber Sales Supervisor Relationship Specialty Start Date End Date Agueda Ann MD [address] [address] [email or web address] PCP - General Family Medicine 02/01/19 Andie Rossi MD [address] [place] [address] Neurology 03/02/19 West Doll MD [address] [place] [address] 104 [place] [address] Cardiology 03/02/19 Britany Coles MD [address] [place] [address] 140 [place] [phone] [email or web address] Surgery 03/02/19 Naun Hoang MD [address] [place] [address] Infectious Diseases 03/02/19 Agueda Ann MD [address] [address] [email or web address] Insurance Assigned Provider 4/6/24 1/6/25 Mely Bhatti, NICOLE [address] [place] [address] [email or web address] iCMP Blanching Machine Operator 05/12/23 06/09/23 documented as of this encounter Additional Source Comments The information contained in this document represents components of the legal health record. It is not the complete legal health record.[facility]
--- OUTSIDE RECORDS SUMMARY | 2024-12-31 06:45 | XMS_ITS | Patient Health Record ---
Author Organization [address] [place] [address] 89[address] [facility] Address [address] [id number] Care Team Providers Care Charging Machine Operator Name Role Phone BARTOLO Dunbar Supriya [phone] Reason For Referral No Information Plan Of Treatment No Information
[2024-12-31 07:30] LABS: Anion Gap 11 (12-20); Blood Urea Nitrogen 50 mg/dL (9-16); Calcium 8.1 mg/dL (8.4-10.2); Carbon Dioxide 21 mmol/L (22-29); Chloride 113 mmol/L (96-108); Estimated Glomerular Filt Rate 51; Potassium 4.8 mmol/L (3.3-5.1); Sodium 140 mmol/L (135-145)
== END 2024-12-31 06:40 | disposition home or self-care (01) ==
LOC: HO.MMNH3L 06:39
PROVIDERS: Visit Provider Student in an Organized Health Care Education/Training Program
DX: I25.9 Chronic ischemic heart disease, unspecified (principal); I69.398 Other sequelae of cerebral infarction; E03.9 Hypothyroidism, unspecified; Z89.611 Acquired absence of right leg above knee
CPT/HCPCS: 36415; 80048; 85025

== ENCOUNTER 2025-01-03 05:24 | Outpatient (REF) | payer MEDICARE, MEDICAID, SELFPAY ==
[2025-01-03 05:27] LABS: MANUAL DIFF FLAG NO
[2025-01-03 05:54] LABS: Ammonia 17 umol/L (13-55)
[2025-01-03 06:08] LABS: Hematocrit 30.0 % (37.0-47.0); Hemoglobin 8.9 g/dl (12.0-16.0); Imm Gran Abs Auto 0.02 X10*3/uL (0.00-0.03); Imm Gran Pct Auto 0.3 % (0.0-0.4); Lymphocytes Absolute Auto 2.4 X10*3/uL (1.2-4.9); Mean Corpuscular HGB Conc 29.7 g/dl (31.0-35.0); Mean Corpuscular Hemoglobin 25.9 pg (27.0-33.0); Mean Corpuscular Volume 87.5 fL (80.0-98.0); NRBC Abs Auto 0.000 X10*3/uL (0.0-0.012); NRBC Pct Auto 0.0 /100WBC (0.0-0.2); Platelet Count 259 X10*3/uL (160-400); Red Blood Count 3.43 X10*6/uL (4.20-5.50); White Blood Count 6.9 X10*3/uL (4.8-10.8)
[2025-01-03 06:12] LABS: Alanine Aminotransferase 8 U/L (0-31); Albumin Level 3.4 g/dL (3.5-5.0); Alkaline Phosphatase 42 U/L (39-117); Anion Gap 11 (12-20); Aspartate Amino Transferase 20 U/L (5-31); Blood Urea Nitrogen 42 mg/dL (9-16); Calcium 8.7 mg/dL (8.4-10.2); Carbon Dioxide 23 mmol/L (22-29); Chloride 109 mmol/L (96-108); Estimated Glomerular Filt Rate 38; Potassium 4.3 mmol/L (3.3-5.1); Sodium 139 mmol/L (135-145); Total Protein 6.3 g/dL (6.5-8.0)
[2025-01-03 06:26] LABS: Procalcitonin 0.07 ng/mL
[2025-01-03 06:31] LABS: Appearance Urine Cloudy; Glucose Urine UA Negative (Negative); PH 5.5 (5.0-9.0); Specific Gravity - Urine 1.015 (1.005-1.025); UMIC TRIGGER UACC YES
[2025-01-03 06:45] LABS: UACC Culture Trigger YES
== END 2025-01-03 05:25 | disposition home or self-care (01) ==
LOC: HO.MMNH3L 05:24
PROVIDERS: Visit Provider Physician Assistant Medical
DX: N18.9 Chronic kidney disease, unspecified (principal)
CPT/HCPCS: 36415; 80053; 81001; 82140; 84145; 85025; 87086

== ENCOUNTER 2025-01-07 07:37 | Outpatient (REF) | payer MEDICARE, MEDICAID, SELFPAY ==
--- OUTSIDE RECORDS SUMMARY | 2025-01-01 07:15 | XMS_ITS | Clinical Summary ---
Author Organization [facility] it Address [address] [place] [address] Care Team Providers Care Patient Consumer Marketer Name Role Phone Unavailable Primary Care Provider Unavailabl e Immunizations Immunization Administration Dates Next Due Pfizer SARS-CoV-2 COVID-19, mRNA, LNP-S, preservative free 07/02/2020,06/07/2020 Surgical History Surgery Date Site/Laterality Comments NECK SURGERY PROCEDURE: HISTORICAL NECK SURGERY; COMMENT: spinal stenosis TONSILLECTOMY PROCEDURE: HISTORICAL TONSILLECTOMY CHOLECYSTECTOMY 09/1989 PROCEDURE: HISTORICAL CHOLECYSTECTOMY BREAST REDUCTION PROCEDURE: ID BREAST REDUCTION ROBOTIC ASSISTED HYSTERECTOMY 03/05/14 PROCEDURE: [...]
--- OUTSIDE RECORDS SUMMARY | 2025-01-01 07:15 | XMS_ITS | Clinical Summary ---
Author Organization [address] Address [address] [place] [address] Care Team Providers Care Bulb Grower Name Role Phone Unavailable Primary Care Provider [...]
--- OUTSIDE RECORDS SUMMARY | 2025-01-01 07:16 | XMS_ITS | Encounter Summary ---
Author Organization [facility] Address [address] [place] [address] Phone Care Team Providers Care Frontload Driver Name Role Phone Agueda Ann MD Primary Care Provider [phone] Andie Rossi MD Unavailable West Doll MD Unavailable [phone] Britany Coles MD Unavailable Naun Hoang MD Unavailable + Agueda Ann MD Unavailable Latosha Garcia OT Unavailable [phone] Latosha Garcia OT Unavailable [phone] Mely Bhatti RN Unavailable [email or web address] Encounter Details Date Type Department Care Team (Late st Contact Info) Description 11/04/2022 Procedure Pass [facility] 30 [place] [address] Social History Tobacco Use Types Packs/Day Years [...] 11/04/2022 1:06 AM Lucita Hirsch, NICOLE * [place] Suicide Severity Rating Scale (Screener/Recent Self-Report) Question [...] documented as of this encounter Care Teams Frontload Driver Relationship Specialty Start Date End Date Agueda Ann MD [address] [address] [email or web address] PCP - General Family Medicine 02/01/19 Andie Rossi MD [address] [place] [address] Neurology 03/02/19 West Doll MD [address] [place] [address] 104 [place] [address] Cardiology 03/02/19 Britany Coles MD [address] [place] [address] 140 [place] [phone] [email or web address] 03/02/19 Naun Hoang MD [address] [place] [address] Infectious Diseases 03/02/19 Agueda Ann MD [address] [address] [email or web address] Insurance Assigned Provider 07/02/23 04/02/24 Latosha Garcia, OT 30 [place] [address] [email or web address] Transitions Block PilerStoner Out Therapy 11/05/22 11/07/22 Latosha Garcia, OT 30 [place] [address] [email or web address] Transitions Block PilerStoner Out Therapy 11/24/22 11/25/22 Mely Bhatti RN 30 [place] [address] [email or web address] Block Piler 05/12/23 06/09/23 documented as of this encounter Additional Source Comments The information contained in this document represents components of the legal health record. It is not the complete legal health record.[facility]
--- OUTSIDE RECORDS SUMMARY | 2025-01-01 07:16 | XMS_ITS | Encounter Summary ---
Author Organization [facility] Address [address] [place] [address] Phone Care Team Providers Care Recruitment Officer Name Role Phone Agueda Ann MD Primary Care Provider [phone] Andie Rossi MD Unavailable [phone] West Doll MD Unavailable Britany Coles MD Unavailable [phone] Naun Hoang MD Unavailable + Agueda Ann MD Unavailable Mely Bhatti RN Unavailable [email or web address] Encounter Details Date Type Department Care Team (Late st Contact Info) Description 12/24/2022 Procedure Pass [facility] 30 [place] [address] Social History Tobacco Use Types Packs/Day Years [...] high school, GED, job training, learning the Pashto language, technical skills, or developing parenting skills)? [...] 12/24/2022 9:29 AM Natalya Menon, NICOLE * [place] Suicide Severity Rating Scale (Screener/Recent Self-Report) Question [...] documented as of this encounter Care Teams Recruitment Officer Relationship Specialty Start Date End Date Agueda Ann MD [address] [address] [email or web address] PCP - General Family Medicine 02/01/19 Andie Rossi MD [address] [place] [address] Neurology 03/02/19 West Doll MD [address] [place] [address] 104 [place] [address] Cardiology 03/02/19 Britany Coles MD [address] [place] [address] 140 [place] [phone] [email or web address] Orthopedic Surgery 03/02/19 Naun Hoang MD [address] [place] [address] Infectious Diseases 03/02/19 Agueda Ann MD [address] [address] [email or web address] Insurance Assigned Provider 4/6/24 1/6/25 Mely Bhatti, NICOLE [address] [place] [address] [email or web address] iCMP Knockout Man 05/12/23 06/09/23 documented as of this encounter Additional Source Comments The information contained in this document represents components of the legal health record. It is not the complete legal health record.[facility]
--- OUTSIDE RECORDS SUMMARY | 2025-01-01 07:16 | XMS_ITS | Encounter Summary ---
Author Organization [employer] Address [address] [facility] 7t [place] [address] Care Team Providers Care Home Furnishings Sales Representative Name Role Phone Unavailable Primary Care Provider Unavailabl e Encounter Details Date Type Department Care Team (Latest Contact Info) Description 06/29/2021 Abstract [facility] CONVERSIONS Dental, Provider, DDS Social History [...]
--- OUTSIDE RECORDS SUMMARY | 2025-01-01 07:16 | XMS_ITS | Encounter Summary ---
Author Organization [facility] Address [address] [place] [address] Phone Care Team Providers Care Front Desk Administrator Name Role Phone Agueda Ann MD Primary Care Provider [phone] Andie Rossi MD Unavailable [phone] West Doll MD Unavailable [phone] Britany Coles MD Unavailable [phone] Naun Hoang MD Unavailable + Agueda Ann MD Unavailable Mely Bhatti RN Unavailable [email or web address] Encounter Details Date Type Department Care Team (Late st Contact Info) Description 12/25/2022 Procedure Pass [facility] [address] [place] [address] Social History Tobacco Use Types Packs/Day Years [...] high school, GED, job training, learning the Setswana language, technical skills, or developing parenting skills)? [...] as of this encounter Care Teams Front Desk Administrator Relationship Specialty Start Date End Date Agueda Ann MD [address] [place] [address] [email or web address] PCP - General Family Medicine 02/01/19 Andie Rossi MD [address] [place] [address] Neurology 03/02/19 West Doll MD [address] [place] [address] 104 [place] [address] Cardiology 03/02/19 Britany Coles MD [address] [place] [address] 140 [place] [phone] Orthopedic Surgery 03/02/19 [place] [address] [place] [address] Infectious Diseases 03/02/19 Agueda Ann MD [address] [address] [email or web address] Insurance Assigned Provider 07/02/23 04/02/24 Mely Bhatti RN [address] [address] [email or web address] iCMP Purchasing Assistant 05/12/23 06/09/23 documented as of this encounter Additional Source Comments The information contained in this document represents components of the legal health record. It is not the complete legal health record.[facility]
--- OUTSIDE RECORDS SUMMARY | 2025-01-01 07:16 | XMS_ITS | Clinical Summary ---
Author Organization [employer] Address [address] [facility] 7t [place] [address] Care Team Providers Care Confectionery Drops Machine Operator Name Role Phone Unavailable Primary Care [...] Most Recently Relevant to Health Maintenance Insurance [facility] MEDICAID STAND ADULT
--- OUTSIDE RECORDS SUMMARY | 2025-01-01 07:16 | XMS_ITS | Encounter Summary ---
Author Organization [employer] Address [address] [facility] 7t [place] [address] Care Team Providers Care Rehab/Pre Vocational Counselor Name Role Phone Unavailable Primary Care Provider Unavailabl e Encounter Details Date Type Department Care Team (Latest Contact Info) Description 07/09/2020 Abstract [facility] CONVERSIONS Dental, Provider, DDS Social [...]
--- OUTSIDE RECORDS SUMMARY | 2025-01-01 07:16 | XMS_ITS | Patient Health Record ---
Author Organization [address] [place] [address] 89[address] [facility] Address [address] [id number] Care Team Providers Care Artificial Insemination Technician Name Role Phone BARTOLO Dunbar Supriya [phone] Reason For Referral No Information Plan Of Treatment No Information
--- OUTSIDE RECORDS SUMMARY | 2025-01-01 07:16 | XMS_ITS | Encounter Summary ---
Author Organization [employer] Address [address] [facility] 7t [place] [address] Care Team Providers Care Health Education Teacher Name Role Phone Unavailable Primary Care Provider Unavailabl e Encounter Details Date Type Department Care Team (Latest Contact Info) Description 05/02/2018 Abstract [facility] CONVERSIONS Dental, Provider, DDS Social [...]
--- OUTSIDE RECORDS SUMMARY | 2025-01-01 07:16 | XMS_ITS | Encounter Summary ---
Author Organization [facility] Address [address] [place] [address] Phone Care Team Providers Care Paint Maker Name Role Phone Agueda Ann MD Primary Care Provider [phone] Andie Rossi MD Unavailable West Doll MD Unavailable Britany Coles MD Unavailable [phone] Naun Hoang MD Unavailable + Agueda Ann MD Unavailable Mely Bhatti RN Unavailable [email or web address] Encounter Details Date Type Department Care Team (Late st Contact Info) Description 12/24/2022 Procedure Pass [facility], [facility] 30 [place] [address] Social History Tobacco Use Types Packs/Day Years [...] high school, GED, job training, learning the Portuguese language, technical skills, or developing parenting skills)? [...] 12/24/2022 9:29 AM Natalya Menon, NICOLE * [place] Suicide Severity Rating Scale (Screener/Recent Self-Report) Question [...] documented as of this encounter Care Teams Paint Maker Relationship Specialty Start Date End Date Agueda Ann MD [address] [address] [email or web address] PCP - General Family Medicine 02/01/19 Andie Rossi MD [address] [place] [address] Neurology 03/02/19 West Doll MD [address] [place] [address] 104 [place] [address] Cardiology 03/02/19 Britany Coles MD [address] [place] [address] 140 [place] [phone] [email or web address] [email or web address] 03/02/19 Naun Hoang MD [address] [place] [address] Infectious Diseases 03/02/19 Agueda Ann MD [address] [address] [email or web address] Insurance Assigned Provider 4/6/24 1/6/25 Mely Bhatti, NICOLE [address] [place] [address] [email or web address] iCMP Craft Recruiter 05/12/23 06/09/23 documented as of this encounter Additional Source Comments The information contained in this document represents components of the legal health record. It is not the complete legal health record.[facility]
--- OUTSIDE RECORDS SUMMARY | 2025-01-01 07:16 | XMS_ITS | Encounter Summary ---
Author Organization [facility] Address [address] [place] [address] Phone Care Team Providers Care Whitewater Rafting Guide Name Role Phone Agueda Ann MD Primary Care Provider [phone] Andie Rossi MD Unavailable [phone] West Doll MD Unavailable Britany Coles MD Unavailable [phone] Naun Hoang MD Unavailable + Agueda Ann MD Unavailable Mely Bhatti RN Unavailable [email or web address] Encounter Details Date Type Department Care Team (Late st Contact Info) Description 12/25/2022 Procedure Pass Non-Invasive Cardiology 30 [place] [address] Social History Tobacco Use Types Packs/Day Years [...] high school, GED, job training, learning the Telugu language, technical skills, or developing parenting skills)? [...] documented as of this encounter Care Teams Whitewater Rafting Guide Relationship Specialty Start Date End Date Agueda Ann MD [address] [place] [address] [email or web address] PCP - General Family Medicine 02/01/19 Andie Rossi MD 48 [place] [address] Neurology 03/02/19 West Doll MD [address] [place] [address] 104 [place] [address] Cardiology 03/02/19 Britany Coles MD [address] [place] [address] 140 [place] [phone] Orthopedic Surgery 03/02/19 [place] [address] [place] [address] Infectious Diseases 03/02/19 Agueda Ann MD [address] [address] [email or web address] Insurance Assigned Provider 07/02/23 04/02/24 Mely Bhatti RN [address] [address] [email or web address] iCMP Railroad Baggage Porter 05/12/23 06/09/23 documented as of this encounter Additional Source Comments The information contained in this document represents components of the legal health record. It is not the complete legal health record.[facility]
--- OUTSIDE RECORDS SUMMARY | 2025-01-01 07:16 | XMS_ITS | Encounter Summary ---
Author Organization [employer] Address [address] [facility] [address] 7t [place] [address] Care Team Providers Care Keel Press Operator Name Role Phone Unavailable Primary Care Provider Unavailabl e Reason for Visit * Reason Onset Date Comments medical clearance 05/27/2022 Encounter Details Date Type Department Care Team (Late st Contact Info) Description 05/27/2022 Telephone [facility] ADULT DENTAL [address] [place] [address] Davonte Cunningham DDS medical clearance Social History [...] was for medical clearance. Pls re send [phone] * Telephone Encounter - Lucina Leigh - [...] was for medical clearance. Pls re send [phone] documented in this encounter Plan of Treatment Not on file documented as of this encounter Visit Diagnoses Not on filedocumented in this encounter
--- OUTSIDE RECORDS SUMMARY | 2025-01-01 07:16 | XMS_ITS | Encounter Summary ---
Author Organization [facility] Address [address] [place] [address] Phone Care Team Providers Care Powder Blender Name Role Phone Agueda Ann MD Primary Care Provider [phone] Andie Rossi MD Unavailable [phone] West Doll MD Unavailable [phone] Britany Coels MD Unavailable [phone] Naun Hoang MD Unavailable + Agueda Ann MD Unavailable Mely Bhatti RN Unavailable [email or web address] Encounter Details Date Type Department Care Team (Late st Contact Info) Description 12/24/2022 Procedure Pass [facility], [facility] 30 [place] [address] Social History Tobacco Use Types Packs/Day Years [...] high school, GED, job training, learning the Serbian language, technical skills, or developing parenting skills)? [...] 12/24/2022 9:29 AM Natalya Menon, NICOLE * [place] Suicide Severity Rating Scale (Screener/Recent Self-Report) Question [...] documented as of this encounter Care Teams Powder Blender Relationship Specialty Start Date End Date Agueda Ann MD [address] [address] [email or web address] PCP - General Family Medicine 02/01/19 Andie Rossi MD [address] [place] [address] Neurology 03/02/19 West Doll MD [address] [place] [address] 104 [place] [address] Cardiology 03/02/19 Britany Coles MD [address] [place] [address] 140 [place] [phone] [email or web address] [email or web address] Surgery 03/02/19 Naun Hoang MD [address] [place] [address] Infectious Diseases 03/02/19 Agueda Ann MD [address] [address] [email or web address] Insurance Assigned Provider 4/6/24 1/6/25 Mely Bhatti, NICOLE [address] [place] [address] [email or web address] iCMP Dye Automation Operator 05/12/23 06/09/23 documented as of this encounter Additional Source Comments The information contained in this document represents components of the legal health record. It is not the complete legal health record.[facility]
--- OUTSIDE RECORDS SUMMARY | 2025-01-01 07:16 | XMS_ITS | Encounter Summary ---
Author Organization [facility] Address [address] [place] [address] Phone Care Team Providers Care Area Coordinator Name Role Phone Agueda Ann MD Primary Care Provider [phone] Andie Rossi MD Unavailable [phone] West Doll MD Unavailable Britany Coles MD Unavailable Naun Hoang MD Unavailable + Agueda Ann MD Unavailable Mely Bhatti RN Unavailable [email or web address] Encounter Details Date Type Department Care Team (Late st Contact Info) Description 12/24/2022 Procedure Pass [facility], [facility] 30 [place] [address] Social History Tobacco Use Types Packs/Day Years [...] 9:29 AM ALEKT Natalya Delgadillo RN * [place] Suicide Severity Rating Scale (Screener/Recent Self-Report) Question [...] documented as of this encounter Care Teams Area Coordinator Relationship Specialty Start Date End Date Agueda Ann MD [address] [address] [email or web address] PCP - General Family Medicine 02/01/19 Andie Rossi MD [address] [place] [address] Neurology 03/02/19 West Doll MD [address] [place] [address] 104 [place] [address] Cardiology 03/02/19 Britany Coles MD [address] [place] [address] 140 [place] [phone] [email or web address] 03/02/19 Naun Hoang MD [address] [place] [address] Infectious Diseases 03/02/19 Agueda Ann MD [address] [address] [email or web address] Insurance Assigned Provider 07/02/23 04/02/24 Mely Bhatti, NICOLE [address] [address] [email or web address] Assistant 05/12/23 06/09/23 documented as of this encounter Additional Source Comments The information contained in this document represents components of the legal health record. It is not the complete legal health record.[facility]
--- OUTSIDE RECORDS SUMMARY | 2025-01-01 07:16 | XMS_ITS | Encounter Summary ---
Author Organization [facility] Address [address] [place] [address] Phone Care Team Providers Care Medical Lab Technologist Name Role Phone Agueda Ann MD Primary Care Provider [phone] Andie Rossi MD Unavailable [phone] West Doll MD Unavailable Britany Coles MD Unavailable Naun Hoang MD Unavailable + Agueda Ann MD Unavailable Latosha Garcia OT Unavailable [phone] Latosha Garcia OT Unavailable [phone] Mely Bhatti RN Unavailable [email or web address] Encounter Details Date Type Department Care Team (Late st Contact Info) Description 07/31/2021 Procedure Pass [facility] Endoscopy Admitting Dept Virtual Department 30 [place] [address] Social History Tobacco Use Types Packs/Day Years [...] high school, GED, job training, learning the Indonesian language, technical skills, or developing parenting skills)? [...] documented as of this encounter Care Teams Medical Lab Technologist Relationship Specialty Start Date End Date Agueda Ann MD [address] [place] [address] PCP - General Family Medicine 02/01/19 Andie Rossi MD [address] [place] [address] Neurology 03/02/19 West Doll MD [address] [place] [address] Cardiology 03/02/19 Britany Coles MD 175 [facility] 140 [place] [phone] [email or web address] [email or web address] Surgery 03/02/19 Naun Hoang MD [address] [facility] [address] [place] [address] Infectious Diseases 03/02/19 Agueda Ann MD [address] [address] [email or web address] Insurance Assigned Provider 07/02/23 04/02/24 Latosha Garcia, OT 30 [place] [address] [email or web address] Transitions Auto Service AdvisorDye House Wheel Operator Therapy 11/05/22 11/07/22 Latosha Garcia, OT 30 [place] [address] [email or web address] Transitions Auto Service AdvisorDye House Wheel Operator Therapy 11/24/22 11/25/22 Mely Bhatti RN 30 [place] [address] [email or web address] iCMP Auto Service Advisor 05/12/23 06/09/23 documented as of this encounter Additional Source Comments The information contained in this document represents components of the legal health record. It is not the complete legal health record.[facility]
--- OUTSIDE RECORDS SUMMARY | 2025-01-01 07:16 | XMS_ITS | Encounter Summary ---
Author Organization [facility] Address [address] [place] [address] Phone Care Team Providers Care Pension Fund Manager Name Role Phone Agueda Ann MD Primary Care Provider [phone] Andie Rossi MD Unavailable West Doll MD Unavailable Britany Coles MD Unavailable [phone] Naun Hoang MD Unavailable + Agueda Ann MD Unavailable Latosha Garcia OT Unavailable [phone] Latosha Garcia OT Unavailable [phone] Mely Bhatti RN Unavailable [email or web address] Encounter Details Date Type Department Care Team (Late st Contact Info) Description 10/04/2019 Ancillary Orders [facility],Outside Imaging 30 [place] [address] System, Provider Not In, PhD Partners [address] [address] Social History Tobacco Use Types Packs/Day Years [...] documented as of this encounter Care Teams Pension Fund Manager Relationship Specialty Start Date End Date Agueda Ann MD [address] [address] PCP - General Family Medicine 02/01/19 Andie Rossi MD 48 [place] [address] Neurology 03/02/19 West Doll MD [address] [place] [address] 104 [place] [address] Cardiology 03/02/19 Britany Coles MD [address] [place] [address] 140 [place] [phone] [email or web address] 03/02/19 [place] [address] [place] [address] Infectious Diseases 03/02/19 Agueda Ann MD [address] [address] [email or web address] Insurance Assigned Provider 07/02/23 04/02/24 Latosha Garcia, OT 30 [place] [address] [email or web address] Transitions Head Of MarketingCommunications Programmer Therapy 11/05/22 11/07/22 Latosha Garcia, OT 30 [place] [address] [email or web address] Transitions Head Of MarketingCommunications Programmer Therapy 11/24/22 11/25/22 Mely Bhatti, NICOLE 30 [place] [address] [email or web address] iCMP Head Of Marketing 05/12/23 06/09/23 documented as of this encounter Additional Source Comments The information contained in this document represents components of the legal health record. It is not the complete legal health record.[facility]
--- OUTSIDE RECORDS SUMMARY | 2025-01-01 07:16 | XMS_ITS | Encounter Summary ---
Author Organization [facility] Address [address] [place] [address] Phone Care Team Providers Care Blocker Automatic Name Role Phone Agueda Ann MD Primary Care Provider [phone] Andie Rossi MD Unavailable West Doll MD Unavailable Britany Coles MD Unavailable [phone] Naun Hoang MD Unavailable + Agueda Ann MD Unavailable Mely Bhatti RN Unavailable [email or web address] Encounter Details Date Type Department Care Team (Late st Contact Info) Description 12/24/2022 Procedure Pass [facility], [facility] 30 [place] [address] Social History Tobacco Use Types Packs/Day Years [...] high school, GED, job training, learning the Macedonian language, technical skills, or developing parenting skills)? [...] 12/24/2022 9:29 AM Natalya Menon, NICOLE * [place] Suicide Severity Rating Scale (Screener/Recent Self-Report) Question [...] documented as of this encounter Care Teams Blocker Automatic Relationship Specialty Start Date End Date Agueda Ann MD [address] [address] [email or web address] PCP - General Family Medicine 02/01/19 Andie Rosis MD [address] [place] [address] Neurology 03/02/19 West Doll MD [address] [place] [address] 104 [place] [address] Cardiology 03/02/19 Britany Coles MD [address] [place] [address] 140 [place] [phone] [email or web address] [email or web address] Surgery 03/02/19 Naun Hoang MD [address] [place] [address] Infectious Diseases 03/02/19 Agueda Ann MD [address] [address] [email or web address] Insurance Assigned Provider 4/6/24 1/6/25 Mely Bhatti, NICOLE [address] [place] [address] [email or web address] Tow Motor Driver 05/12/23 06/09/23 documented as of this encounter Additional Source Comments The information contained in this document represents components of the legal health record. It is not the complete legal health record.[facility]
--- OUTSIDE RECORDS SUMMARY | 2025-01-01 07:16 | XMS_ITS | Clinical Summary ---
Author Organization [facility] Address [address] [place] [address] Phone Care Team Providers Care Cyber Ops Planner Name Role Phone Agueda Ann MD Primary Care Provider [phone] Andie Rossi MD Unavailable [phone] West Doll MD Unavailable [phone] Britany Coles MD Unavailable Naun Hoang MD [...] mouth daily. 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 Acquired hypothyroidism 09/04/2020 Assessment & Plan (12/26/2022 [...] like to little and she is established [place] weight management so I like her to see the energy audit advisor there she understands and agrees this plan Assessment & Plan (05/17/2019 12:35 PM EST): She is working out, tracking her caloric intake and sticking to nutrition plan although she is under eating. No clear etiology for her weight gain. Start taking levothyroxine separately from the other medications. Check labs today. Make follow-up with energy audit advisor CAD (coronary artery disease) 03/02/2019 Overview (03/02/2019): h/o stent Assessment & Plan (12/26/2022 3:02 PM EDT): No active cp or acute concern -Continue quality assurance monitor body -Continue aspirin, atorvastatin, Plavix, and Zetia Is [...] and chronic pain. Certainly would benefit from PROC TECH services and I have discussed with pt [...] pt can establish with someone new at [facility]. Assessment & Plan (01/21/2021 12:34 PM [...] and gait. She will be going to [facility] physical medicine and rehabilitation in [place] for this. IgG monoclonal gammopathy Assessment & Plan (03/02/2019 12:15 PM EST): Patient denies ever seeing hematology, has never heard this diagnosis and does not think that she has this. As I do not have records it is difficult for me to understand where this came from. I would like to review her [facility] records and if necessary we will [...] for Neuro muscular in Dec at [facility] No further pain. F/u as needed Assessment [...] this topic Medical Devices Implanted Type Area Choke Reamer Device Identifier Shelf Expiration Date Model / Serial / Lot Stent Supera 6fr 5.5mm 120mm 120cm .014in Otw Vascular Peripheral Nitinol Self Expanding Closed End Braided - [id number] Implanted:Qty: 1 on 11/18/2022 by David Mendez MD at [facility] Stent Kitani 04/27/2024 [id number] / / [id number] Cardiac Stent Neck Hardware Procedures Procedure Name [...] EST) SODIUM 137 133 - 146 mmol/L [facility] CHLORIDE 101 96 - 108 mmol/L [facility] POTASSIUM 4.1 3.3 - 5.1 mmol/L [facility] CO2 24 21 - 35 mmol/L [facility] BUN 27(H) 6 - 19 mg/dL [facility] CREATININE 0.50 0.5 - 1.5 mg/dL [facility] GLUCOSE 103(H) 70 - 99 mg/dL [facility] CALCIUM 9.0 8.4 - 10.3 mg/dL [facility] EGFR 103 >59 mL/min/1.7 3m2 [facility] Comment:Estimated glomerular filtration rate calculated using the CKD-EPI refit equation. ANION GAP 16 10 - 20 mmol/L [facility] Blood 05/23/2023 4:12 PM EST 05/23/2023 4:32 PM EST Mely Padron PA-C LAB BLOOD ORDERABLES Final R esult [address] [address] * (ABNORMAL) TSH with reflex (01/13/2023 7:58 AM EDT) TSH 0.03(L) 0.27 - 4.20 uIU/mL [facility] Blood 01/13/2023 7:58 AM EDT 01/13/2023 8:03 AM EDT Agueda Ann MD LAB BLOOD ORDERABLES Final Resul t Performing Organization Address City/[facility]/ZIP Co de Phone Number [address] [address] * (ABNORMAL) Lipid panel (12/25/2022 5:22 AM EDT) HDL 46 mg/dL [facility] Comment: Interpretation <40 mg/dL: Low HDL cholesterol (major risk factor for CHD) Greater than or equal to 60 mg/dL: High HDL cholesterol ( negative risk factor for CHD) HDL - cholesterol is affected by a number of factors, e.g. smoking, excerise, hormones, sex and age. CHOLESTEROL 98 0 - 240 mg/dL [facility] TRIGLYCERIDES 86 30 - 160 mg/dL [facility] LDL 35(L) 50 - 129 mg/dL [facility] Comment: LDL levels in terms of risk for coronary heart disease: <100 mg/dL: Optimal 100-129 mg/dL: Near or above optimal 130-159 mg/dL: Borderline high 160-189 mg/dL: High >190 mg/dL: Very High CARDIAC RISK RATIO 2.1(L) 3.3 - 4.4 [facility] Blood 12/25/2022 5:22 AM EDT 12/25/2022 6:22 AM EDT us Kayley Ribera NP LAB BLOOD ORDERABLES Fi nal Result [address] [address] * MAMMOGRAPHY FOR RESULT ENTRY ONLY (07/07/2022) us Agueda Ann MD HEALTH MAINTENANCE Edited Result - Final from Last 3 Months or Most Recently Relevant to Health Maintenance Insurance MEDICARE PART A & [place] [facility] [place] [facility] [place] & B [facility] MEDIC[facility] PART A & [place] & B [facility] Advance Directives For more information, please contact: [phone] (9AM - 5PM [facility], Tuesday-Tuesday) Documents on File Type Date Recorded Patient Track Mechanic Expl anation Healthcare Proxy 11/08/2022 6:36 PM [...] Code Status Confirmed With: Patient Care Teams Cyber Ops Planner Relationship Specialty Start Date End Date Agueda Ann MD [address] [place] [id number] PCP - General Family Medicine 02/01/19 Andie Rossi MD [address] [place] [address] Neurology 03/02/19 West Doll MD [address] [place] [address] 104 [place] [address] Cardiology 03/02/19 Britany Coles MD [address] [place] [address] [address] [place] [address] [email or web address] Orthopedic Surgery 03/02/19 Naun Hoang MD [address] [address] Infectious Diseases 03/02/19 Additional Source Comments The information contained in this document represents components of the legal health record. It is not the complete legal health record.[facility]
--- OUTSIDE RECORDS SUMMARY | 2025-01-01 07:16 | XMS_ITS | Encounter Summary ---
Author Organization [facility] Address [address] [place] [address] Phone Care Team Providers Care Machine Room Operator Name Role Phone Agueda Ann MD Primary Care Provider Andie Rossi MD Unavailable West Doll MD Unavailable [phone] Britany Coles MD Unavailable Naun Hoang MD Unavailable + Agueda Ann MD Unavailable Latosha Garcia OT Unavailable Mely Bhatti RN Unavailable [email or web address] Encounter Details Date Type Department Care Team (Late st Contact Info) Description 11/18/2022 Procedure Pass [facility] Cardiovascular And Interventional Radiology [address] [place] [address] Social History Tobacco Use Types Packs/Day Years [...] high school, GED, job training, learning the [place] language, technical skills, or developing parenting skills)? [...] documented as of this encounter Care Teams Machine Room Operator Relationship Specialty Start Date End Date Agueda Ann MD [address] [place] [address] PCP - General Family Medicine 02/01/19 Andie Rossi MD [address] [place] [address] Neurology 03/02/19 West Doll MD [address] [place] [address] 104 [place] [address] Cardiology 03/02/19 Britany Coles MD 175 [facility] 140 [place] [id number] [email or web address] Orthopedic Surgery 03/02/19 [place] [address] [place] [address] Infectious Diseases 03/02/19 Agueda Ann MD [address] [address] [email or web address] Insurance Assigned Provider 07/02/23 04/02/24 Latosha Garcia, OT [address] [place] [address] [email or web address] [email or web address] Emergency Room Physician AssistantHematologist Oncologist Therapy 11/24/22 11/25/22 Mely Bhatti, NICOLE [address] [place] [address] [email or web address] Emergency Room Physician Assistant 05/12/23 06/09/23 documented as of this encounter Additional Source Comments The information contained in this document represents components of the legal health record. It is not the complete legal health record.[facility]
--- OUTSIDE RECORDS SUMMARY | 2025-01-01 07:16 | XMS_ITS | Encounter Summary ---
Author Organization [facility] Address [address] [place] [address] Phone Care Team Providers Care Truck Driver Instructor Name Role Phone Agueda Ann MD Primary Care Provider [phone] Andie Rossi MD Unavailable [phone] West Doll MD Unavailable Britany Coles MD Unavailable Naun Hoang MD Unavailable + Agueda Ann MD Unavailable Mely Bhatti RN Unavailable [email or web address] Encounter Details Date Type Department Care Team (Late st Contact Info) Description 12/24/2022 Procedure Pass [facility], Ct Scan - [facility] [address] [place] [address] Social History Tobacco Use Types Packs/Day Years [...] 9:29 AM ALEKT Natalya Delgadillo RN * [place] Suicide Severity Rating Scale (Screener/Recent Self-Report) Question [...] documented as of this encounter Care Teams Truck Driver Instructor Relationship Specialty Start Date End Date gAueda Ann MD [address] [address] [email or web address] PCP - General Family Medicine 02/01/19 Andie Rossi MD [address] [place] [address] Neurology 03/02/19 West Doll MD [address] [place] [address] 104 [place] [address] Cardiology 03/02/19 Britany Coles MD [address] [place] [address] 140 [place] [phone] [email or web address] [email or web address] Surgery 03/02/19 Naun Hoang MD [address] [place] [address] Infectious Diseases 03/02/19 Agueda Ann MD [address] [address] [email or web address] Insurance Assigned Provider 07/02/23 04/02/24 Mely Bhatti, NICOLE [address] [address] [email or web address] 05/12/23 06/09/23 documented as of this encounter Additional Source Comments The information contained in this document represents components of the legal health record. It is not the complete legal health record.[facility]
[2025-01-07 06:46] LABS: MANUAL DIFF FLAG NO
[2025-01-07 07:21] LABS: Hematocrit 26.8 % (37.0-47.0); Hemoglobin 8.2 g/dl (12.0-16.0); Imm Gran Abs Auto 0.01 X10*3/uL (0.00-0.03); Imm Gran Pct Auto 0.2 % (0.0-0.4); Lymphocytes Absolute Auto 1.9 X10*3/uL (1.2-4.9); Mean Corpuscular HGB Conc 30.6 g/dl (31.0-35.0); Mean Corpuscular Hemoglobin 26.7 pg (27.0-33.0); Mean Corpuscular Volume 87.3 fL (80.0-98.0); NRBC Abs Auto 0.000 X10*3/uL (0.0-0.012); NRBC Pct Auto 0.0 /100WBC (0.0-0.2); Platelet Count 250 X10*3/uL (160-400); Red Blood Count 3.07 X10*6/uL (4.20-5.50); White Blood Count 6.1 X10*3/uL (4.8-10.8)
[2025-01-07 07:31] LABS: Anion Gap 12 (12-20); Blood Urea Nitrogen 32 mg/dL (9-16); Calcium 8.3 mg/dL (8.4-10.2); Carbon Dioxide 22 mmol/L (22-29); Chloride 111 mmol/L (96-108); Estimated Glomerular Filt Rate 60; Potassium 4.5 mmol/L (3.3-5.1); Sodium 140 mmol/L (135-145)
--- OUTSIDE RECORDS SUMMARY | 2025-01-07 07:42 | XMS_ITS | Clinical Summary ---
Author Organization [address] Address [address] [place] [id number] Care Team Providers Care Teacher Ballet Name Role Phone Unavailable Primary Care Provider [...]
--- OUTSIDE RECORDS SUMMARY | 2025-01-07 07:42 | XMS_ITS | Data Portability ---
Author Organization [facility], Main Office Address [address] [address] [address] [place] [address] Care Team Providers Care Entrepreneur Name Role Phone VINI DOWLING 1ST FLOOR OTHER [phone] BEBE GUTIERREZ Primary Care Provider Assessment Encounter [...] Address Organization Details Recorded Time Diabetes mellitus 68752505 Active 2023 MIRI NORTON [address] [facility], [address], [place], [address], [facility] 4 20:18:04 Essential hypertensio n 11260290 Active 2023 MIRI NORTON [address] [facility], [address], [place], [address], [facility] 4 20:18:10 Hyperlipide reinier 35836083 Active 2023 MIRI NORTON [address] [place] [address], [address], [place], [address], [facility] 4 20:18:16 Femoral-pop liteal artery bypass graft Completed 202309/01/[address]23 MIRI NORTON [address] [place] [address], [address], [place], [address], [facility] 4 22:16:23 Anemia 364060318 Active 2023 MIRI NORTON [address] [place] [address], [address], [place], [address], [facility] 4 20:20:45 Cerebrovasc ular accident 046989037 Active 2023 MIRI NORTON [address] [place] [address], [address], [place], [address], [facility] 4 20:21:06 Femoro-ante rior tibial bypass graft Completed 202309/01/2023 MIRI NORTON [address] [place] [address], [address], [place], [address], [facility] 4 22:16:23 Chronic kidney disease stage 3 144990932 Active 2023 MIRI NORTON [address] [place] [address], [address], [place], [address], [facility] 4 20:28:49 Peripheral vascular disease 952818160 Active 2023 MIRI NORTON [address] [place] [address], [address], [place], [address], [place] [facility] 20:29:56 Asthenia 47011635 Active 2023 PÉREZ LUNDBERG, MIRI [address], [address], [place], [address], [facility] 20:30:45 Insomnia 991019701 Active 2023 PÉREZ LUNDBERG, MIRI [address], [address], [place], [address], [facility] 4 21:49:49 Constipatio n 94709486 Active [address]ON [address], [address], [place], [address], [facility] 4 21:52:14 Acute kidney injury 49880824 Active [address]ORTON [address], [address], [place], [address], [facility] 4 21:56:55 Hypocalcemi a 8941527 Completed 202309/01/[address]ON [address], [address], [place], [address], [facility] 4 22:16:23 Myasthenia gravis 27356436 Active [address]ON [address], [address], [place], [address], [facility] 4 22:10:42 Aphasia 49527665 Completed 202309/01/[address]ORTON [address], [address], [place], [address], [facility] 4 22:16:23 Vascular dementia 751209771 Active [address]ORTON [address], [address], [place], [address], [facility] 4 13:06:33 Amputated below knee 280754535 Active [address]ON [address], [address], [place], [address], [facility] 4 16:38:11 Delirium 6733745 Active [address]ORTON [address], [address], [place], [address], [facility] 4 16:54:43 Dysphagia 42761192 Active [address], [address], [place], [address], [facility] 4 16:55:09 Toxic encephalopa thy 83828820 Active 2023 JOHN NORTONP [address] [facility], [address], [place], [address], [facility] 4 16:55:43 Hypothyroid ism 12377220 Active 2023 JOHN NORTONP [address] [facility], [address], [place], [address], [facility] 4 22:18:37 Anxiety 72729852 Active 2023 PÉREZ LUNDBERG [facility] [address] [facility], [address], [place], [address], [facility] 4 22:24:04 Carotid artery stenosis 10192090 Active 2023 MIRI NORTON [address] [facility], [address], [place], [address], [facility] 4 12:10:00 Problem Notes None [...] 97 % 118/68 mm[Hg] MIRI NORTON [address] [facility], [address], [place], [address], [facility] 4 14:16:49 Date Recorded Body height Heart rate Respiratory rate Body temperature Oxygen saturation Oxygen saturation in Arterial blood by Pulse oximetry Systolic And Diastolic Provider Name and Address Organization Details Last Updated DateTime 4 165.1 cm 73 /min 18 /min 98 [degF] 94 % 94 % 111/76 mm[Hg] MIRI NORTON [address] [facility], [facility] [address], [place], [address], [facility] 4 11:35:13 Date Recorded Body height Respiratory rate Body temperature Oxygen saturation Oxygen saturation in Arterial blood by Pulse oximetry Heart rate Systolic And Diastolic Provider Name and Address Organization Details Last Updated DateTime 4 165.1 cm 18 /min 98 [degF] 94 % 94 % 68 /min 118/71 mm[Hg] MIRI NORTON [address] [facility], [address], [place], [address], [facility] 4 16:01:39 Date Recorded Body height Body mass index (BMI) Body weight Heart rate Respiratory rate Body temperature Oxygen saturation Oxygen saturation in Arterial blood by Pulse oximetry Systolic And Diastolic Provider Name and Address Organization Details Last Updated DateTime 4 165.1 cm 28.6 kg/m2 96485.8 9 g 73 /min 16 /min 98.4 [degF] 100 % 100 % 135/68 mm[Hg] MIRI NORTON [address] [facility], [address], [place], [address], [facility] 4 15:14:16 Social History Question Answer Notes LastModified by Organizat ion Details LastModified Time Tobacco Smoking Status Never Smoker MIRI NORTON [address] [facility], [address], [place], [address], [facility] 06/30/2023 02:31:25 Do You Have An Advance [...] Do You Have A Medical Power Of Loss Control Consultant? Yes Information not available 07/22/2023 What Was [...] Time Tdap 9 completed Elle South null, [facility] 07/01/2023 13:25:18 Tdap 8 completed Elle South null, [facility] 07/01/2023 13:25:33 Pneumococcal conjugate PCV20, polysaccharide VPR178 conjugate, adjuvant, PF 2 completed Elle South [facility], [facility] 07/01/2023 13:25:55 pneumococcal polysaccharide PPV23 4 completed Elle South null, [facility] 07/01/2023 13:26:09 pneumococcal polysaccharide PPV23 7 completed Elle South [facility] 07/01/2023 13:26:18 influenza, unspecified formulation 2 completed Elle South [facility] 07/01/2023 13:26:47 influenza, unspecified formulation 3 completed Elle Brannon [facility], [facility] 07/01/2023 13:26:55 SARS-COV-2 (COVID-19) vaccine, UNSPECIFIED 1 completed Elle Brannon [facility] 07/01/2023 13:27:17 SARS-COV-2 (COVID-19) vaccine, UNSPECIFIED 1 completed Elle Brannon [facility] 07/01/2023 13:27:40 SARS-COV-2 (COVID-19) vaccine, UNSPECIFIED 1 completed Elle Brannon [facility], [facility] 07/01/2023 13:27:55 SARS-COV-2 (COVID-19) vaccine, UNSPECIFIED 2 [facility] 13:28:04 SARS-COV-2 (COVID-19) vaccine, UNSPECIFIED 2 [facility] 13:28:24 SARS-COV-2 (COVID-19) vaccine, UNSPECIFIED 3 completed Elle Brannon [facility] 07/01/2023 13:28:37 zoster, unspecified formulation 9 completed Elle South [facility] 07/01/2023 13:29:06 zoster, unspecified formulation 9 completed Elle South [facility] 07/01/2023 13:29:21 Past Encounters Encounter ID Performer Location Encounter Start Date Encounter Closed Date Diagnosis/Indication Diagnosis SNOMED-CT Code Diagnosis ICD10 Code Diagnosis IMO Codes Diagnosis Note [id number] MIRI NORTON [address] [facility] [address] [place] [address] 06/29/2023 15:34:40 07/22/2023 14:35:38 Peripheral vascular disease 733314857 I73.9 s/p right femoral endarterec bridget with [...] rightfollo w up with vascular 06/29 Asthenia 40988059 R53.1 hx of myasthenia gravisPT/O T eval and treat Diabetes mellitus 756900 09 E11.9 A1c 5.7 on 06/23hospit al records indicate that she states she is taking for constipati on, she is not sure she is a diabetic.c ontinue metformin 500 mg BIDcontinu e to monitor FSfollow-u p with PCP after discharge for further management Essential hypertension 04699047 I10 continue lisinopril 5 mg dailyconti nue metoprolol 50 mg bidfurosem oxana 40 mg dailymonit or BP /labs Hyperlipidemia 95431992 E78.5 atorvastat in 40 mg dailymonit or lipids prn Insomnia 023199131 G47.0 0 continue melatonin 9 mg hscontinue trazadone 12.5 mg hs prn Constipation 77472019 K5 9.00 continue colace 100 mg bidcontinu e miralax 17 gm dailyincre ase oral hydration Anemia 691919520 D64.9 continue ferrous sulfate 325 mg dailymonit or CBCH&H stable at 7.9/25.1 Hypocalcemia 5968212 E83 .51 continue calcium carbonate 500 mg dailyconti nue cholecalci ferol 1000 u daily Myasthenia gravis 794477 04 G70.00 carrying dxmaintain safety/pre cautionsno t on medication Cerebrovas cular accident 635100236 I63.9 carrying dx Chronic ki dney disease stage 3 278344529 N18.30 mahi resolved in acute careavoid nephrotoxi c medication smonitor labs [id number] [facility] [address] [place] [address] 06/30/2023 11:39:21 07/04/2023 14:42:16 Bleeding from nose 499147680 R04.0 uncontroll ed bleeding from right narespt is on multiple anticoag( asa, eliquis and plavix) held this morning.wi ll send to ED for eval and tx. [id number] MIRI NORTON [address] [place] [address] 07/12/2023 11:03:46 07/19/2023 11:10:58 Open wound of right foot 4490765777 9047804 S91.301A dorsal right foot with wound vacDo Not remove wound vac, she has appt with vascular on 07/13 Surgical i ncision wound of skin 6184537139 00 R23.8 right lateral mid thigh with 22 nehemias right low leg corral 12 staple right lower extremity medial thigh wound with packing Peripheral vascular disease 525874911 I73.9 s/p right femoral endarterec bridget with [...] rightfollo w up with vascular 06/29 Asthenia 71003859 R53.1 hx of myasthenia gravisPT/O T eval and treat Diabetes mellitus 775262 09 E11.9 A1c 5.7 on 06/23hospit al records indicate that she states she is taking for constipati on, she is not sure she is a diabetic.c ontinue metformin 500 mg BIDcontinu e to monitor FSfollow-u p with PCP after discharge for further management Essential hypertension 22451668 I10 continue lisinopril 5 mg dailyconti nue metoprolol 50 mg bidfurosem oxana 40 mg dailymonit or BP /labs Hyperlipidemia 43158334 E78.5 atorvastat in 40 mg dailymonit or lipids prn Insomnia 656873493 G47.0 0 continue melatonin 9 mg hscontinue trazadone 12.5 mg hs prn Constipation 82218811 K5 9.00 continue colace 100 mg bidcontinu e miralax 17 gm dailyincre ase oral hydration Anemia 499100195 D64.9 baseline 7.9-8decre ased to 7.0 due to epistaxiss he was transfused 2 PRBCsconti nue ferrous sulfate 325 mg dailymonit or CBC Hypocalcemia 0485970 E83 .51 continue calcium carbonate 500 mg dailyconti nue cholecalci ferol 1000 u daily Myasthenia gravis 858640 04 G70.00 carrying dxmaintain safety/pre cautionsno t on medication Cerebrovas cular accident 241357913 I63.9 carrying dx Chronic ki dney disease stage 3 954251645 N18.30 mahi resolved in acute careavoid nephrotoxi c medication smonitor labs Aphasia 26692170 R47.01 hx of CVAIntermi ttent aphasia/Wo rd finding difficulty no new stroke seen on brain MRI.Suspec t vascular dementia, may have some hypoperfus ion given her anemia. [id number] MIRI NORTON [address] [place] [address] rd [place] [address] 07/18/2023 10:15:58 07/22/2023 15:25:22 Open wound of right foot 2810014489 0645641 S91.301A s/p wound debridemen t 07/13, will be returning to vascular 07/19 for integra placement and wound vac Surgical i ncision wound of skin 0426933299 00 R23.8 right lateral mid thigh with 22 staplesrig ht low leg corral 12 staplerigh t lower extremity medial thigh wound with packingnur sing to removed on 07/18 ord placed in [facility] Peripheral vascular disease 681518963 I73.9 s/p right femoral endarterec bridget with [...] 6 prncontinu e lidocaine patch right Asthenia 74661667 R53.1 hx of myasthenia gravisPT/O T eval and treat Diabetes mellitus 114539 09 E11.9 A1c 5.7 on 06/23hospit al records indicate that she states she is taking for constipati on, she is not sure she is a diabetic.c ontinue metformin 500 mg BIDcontinu e to monitor FSfollow-u p with PCP after discharge for further management Essential hypertension 47450693 I10 continue lisinopril 5 mg dailyconti nue metoprolol 50 mg bidfurosem oxana 40 mg dailymonit or BP /labs Constipation 54073409 K5 9.00 continue colace 100 mg bidcontinu e miralax 17 gm dailyincre ase oral hydration Anemia 472409188 D64.9 baseline 7.9-8decre ased to 7.0 due to epistaxiss he was transfused 2 PRBCsconti nue ferrous sulfate 325 mg dailymonit or CBC Aphasia 41584513 R47.01 hx of CVAIntermi ttent aphasia/Wo rd finding difficulty no new stroke seen on brain MRI.Suspec t vascular dementia, may have some hypoperfus ion given her anemia. [id number] Afia Tierney MD [address] [place] [address] 07/22/2023 14:24:36 08/15/2023 12:08:31 Open wound of right foot 7190153889 2897439 S91.301A Continue wound care as ordered.F/ U with surgeon as planned for further debridemen t and wound vac placement. Surgical i ncision wound of skin 9230957544 00 R23.8 Wounds healing well.Stale s removed. Peripheral vascular disease 130579875 I73.9 s/p right femoral endarterec bridget with [...] mg q 6 hrs prnMonitor sxs. Asthenia 50386068 R53.1 As above. Diabetes mellitus 187734 09 E11.9 HgA1C was 5.7 on 06/23All sugars <200 since here, so fingerstic ks d/c'd on 07/18Contin ue metformin 500 mg BIDMonitor fingerstic ks prn. Essential hypertension 11448482 I10 BP in good control on lisinopril 5 mg qd, metoprolol 50 mg BID, and furosemide 40 mg qdMonitor BP and labs. Constipation 05018262 K5 9.09 Continue bowel meds as ordered.Mo nitor bowel function. Anemia 076271162 D64.89 Multifacto rial.Galindo nue ferrous sulfate 325 mg qdMonitor CBC Aphasia 04766108 R47.01 As above. Hyperlipidemia 23629110 E78.49 Continue atorvastat in 40 mg qdMonitor lipids yearly Insomnia 256754566 G47.0 0 Continue melatonin 9 mg qhs and trazadone 12.5 mg qhs prnMonitor sleep patterns. Hypocalcemia 7115904 E83 .51 Doesn't have hypocalcem ia.Correct ed Ca+ os 9.08Likely is on Ca+ and vit D for osteopenia .Continue calcium carbonate 500 mg qd and cholecalci ferol 1000 IU qd. Myasthenia gravis 262064 04 G70.00 Carrying dxOn no meds at this time.Very deconditio kelsy.Needs PT/OT for strengthen ing, balance, gait training, safety and function.C ontinue fall precaution s.Monitor for safety. Cerebrovas cular accident 684960747 I63.89 With mod to severe aphasia.SL P eval and tx.Continu e meds as above.Prakash emory for new neuro sxs. Chronic ki dney disease stage 3 711811213 N18.32 At baseline.C ontinue to avoid nephrotoxi c meds as able.Monit or labs.Renal consult prn. Anxiety 10900382 F41.1 Very anxious tonight. Anxiety makes it even harder for her to get her words out.Will start lorazepam 0.5 mg q 6 hrs prn [id number] MIRI NORTON [address] [place] [address] [place] [address] 07/25/2023 12:45:25 07/26/2023 15:42:48 Open wound of right foot 5227809249 1100261 S91.301A 07/19: s/p wound debridemen tcontinue wound treatment as ordered.fo llow up with [facility] on 08/01 at 130 pm Surgical i ncision wound of skin 8591525622 00 R23.8 right lateral mid thigh - HEALING NEHEMIAS REMOVED IN ACUTE CAREright low leg corral healingrig ht lower extremity medial thigh wound with packing Peripheral vascular disease 355519970 I73.9 s/p right femoral endarterec bridget with [...] 6 prncontinu e lidocaine patch right Asthenia 16409755 R53.1 hx of myasthenia gravisPT/O T eval and treat Diabetes mellitus 166309 09 E11.9 continue metformin 500 mg BIDcontinu e to monitor FSfollow-u p with PCP after discharge for further management Essential hypertension 27544954 I10 continue lisinopril 5 mg dailyconti nue metoprolol 50 mg bidfurosem oxana 40 mg dailymonit or BP /labs Constipation 67498370 K5 9.00 continue colace 100 mg bidschedul ed miralax 17 gm daily and senna 8.6 mg daily.incr ease oral hydration Anemia 714648037 D64.9 see hpitoday 6.7 -will recheck on 07/25contin ue ferrous sulfate 325 mg dailycolor is normal, there is no SOB, extremitie s are warm.monit or CBC [id number] MIRI NORTON [address] [place] [address] [place] [address] 07/29/2023 09:49:56 08/02/2023 10:28:17 Open wound of right foot 8855800219 7011308 S91.301A 07/19: s/p wound debridemen tcontinue wound treatment as ordered.fo llow up with [facility] on 08/01 at 130 pm Peripheral vascular disease 738820008 I73.9 s/p right femoral endarterec bridget with [...] prncontinu e lidocaine patch right Diabetes mellitus 337505 09 E11.9 continue metformin 500 mg BIDcontinu e to monitor FSfollow-u p with PCP after discharge for further management Essential hypertension 81421677 I10 continue lisinopril 5 mg dailyconti nue metoprolol 50 mg bidfurosem oxana 40 mg dailymonit or BP /labs Anemia 054492878 D64.9 see hpicontinu e ferrous sulfate 325 mg dailycolor is normal, there is no SOB, extremitie s are warm.monit or CBC [id number] MIRI NORTON [facility] [address] [place] [address] 08/05/2023 09:45:20 08/09/2023 11:18:14 Open wound of right foot 4360281647 8924434 S91.301A 07/19: s/p wound debridemen tcontinue wound treatment as ordered.fo llow up with [facility] on 08/02 with new wound care orders-[facility] care for R foot: Apply saline moistened Promogran over Puraply three times weekly. Peripheral vascular disease 195789094 I73.9 s/p right femoral endarterec bridget with [...] prncontinu e lidocaine patch right Diabetes mellitus 603791 09 E11.9 continue metformin 500 mg BIDcontinu e to monitor FSfollow-u p with PCP after discharge for further management Essential hypertension 56172558 I10 continue lisinopril 5 mg dailyconti nue metoprolol 50 mg bidfurosem oxana 40 mg dailymonit or BP /labs Anemia 085059120 D64.9 see hpicontinu e ferrous sulfate 325 mg dailycolor is normal, there is no SOB, extremitie s are warm.monit or CBC [id number] M[facility]ORTON [facility] [address] [place] [address] 08/09/2023 08:23:37 08/12/2023 11:43:31 Open wound of right foot 3532101299 6107049 S91.301A 07/19: s/p wound debridemen tcontinue wound treatment as ordered.fo llow up with [facility] on 08/02 with new wound care orders-[facility] care for R foot: Apply saline moistened Promogran over Puraply three times weekly.[facility]. Peripheral vascular disease 552252264 I73.9 s/p right femoral endarterec bridget with [...] prncontinu e lidocaine patch right Diabetes mellitus 684891 09 E11.9 continue metformin 500 mg BIDcontinu e to monitor FS Essential hypertension 99606341 I10 continue lisinopril 5 mg dailyconti nue metoprolol 50 mg bidfurosem oxana 40 mg dailymonit or BP /labs Anemia 387854939 D64.9 H/H has been stable.con tinue ferrous sulfate 325 mg dailycolor is normal, there is no SOB, extremitie s are warm.monit or CBC [id number] MIRI NORTON [address] [place] [address] 08/15/2023 13:44:19 08/18/2023 13:20:18 Open wound of right foot 6998466696 9291229 S91.301A 07/19: s/p wound debridemen tcontinue wound treatment as ordered.fo llow up with [facility] on 08/02 with new wound care orders-[facility] care for R foot: Apply saline moistened Promogran over Puraply three times weekly.07/26 5 :s/p right foot debridemen t, applicatio n of skin substitute graftfollo w up appt 08/15 at [facility] with vascular. Peripheral vascular disease 023819846 I73.9 s/p right femoral endarterec bridgte with completion angiogram3 15 s/p right femoral [...] prncontinu e lidocaine patch right Diabetes mellitus 449028 09 E11.9 continue metformin 500 mg BIDcontinu e to monitor FS Essential hypertension 95199162 I10 continue lisinopril 5 mg dailyconti nue metoprolol 50 mg bidfurosem oxana 40 mg dailymonit or BP /labs Anemia 686197336 D64.9 H/H 6.6/21.2- will repeat labsconsid er adding ascorbic acid dailyconti nue ferrous sulfate 325 mg dailycolor is normal, there is no SOB, extremitie s are warm.monit or CBC [id number] MIRI NORTON [address] [place] [address] 08/16/2023 08:21:08 08/18/2023 15:50:07 Open wound of right foot 5807360809 5684273 S91.301A see HPI with new finding today,07/19 : s/p wound debridemen :s/p right foot debridemen t, applicatio n of skin substitute graft08/10: tuesday morning sent back to S for excessive wound bleeding thru dressings- transfused 1 unit of packed red blood cells.08/11 : returned from [facility].: abnormal H/H 6.3/19.9 Peripheral vascular disease 601563056 I73.9 s/p right femoral endarterec bridget with [...] 6 prncontinu e lidocaine patch right Anemia 646110110 D64.9 H/H 6.3/19.9co ntinue ferrous sulfate 325 mg dailycolor is pale there is no SOB, extremitie s are warm, right foot cold. [id number] MIRI NORTON [facility] [address] [place] [address] [place] [address] 08/29/2023 12:13:56 09/05/2023 15:08:58 Amputated below knee 481136190 Z89.519 Critical limb ischemia of right lower extremity now s/p right below knee amputation .continue oxycodone 5 mg q 6 prnfollow up with vascular on 09/01/23 Peripheral vascular disease 210747061 I73.9 s/p below knee amputation continue asa, plavix and eliquiscon tinue oxycodonec ontinue lyrica 150 mg qd and 200 mg at HS Delirium 2133028 R41.0 resolved in acute careof note she is at baseline status, she is alert and oriented. Dysphagia 63334252 R13.1 0 resolvedsh e was seen by speech in acute acute care, continue reg diet with thin liquids Toxic encephalopathy 283 12516 G92.9 resolved in acute careammoni a level 20 on 08/24 Diabetes mellitus 402475 09 E11.9 continue metformin 500 mg BIDcontinu e to monitor FS Essential hypertension 04552779 I10 continue lisinopril 5 mg dailyconti nue metoprolol 50 mg bidfurosem oxana 40 mg dailymonit or BP /labs Hypothyroidism 79254322 E03.9 continue levothyrox ine 200 mcgtsh 8- recheck labs in 6-8 weeks Hyperlipidemia 65433761 E78.49 atorvastat in 40 mg dailymonit or lipids prn Anemia 067734339 D64.9 continue ferrous sulfate 325 mg dailycont. Vit D 1000u daily Constipation 52134175 K5 9.09 continue colace 100 mg bidschedul ed miralax 17 gm daily and senna 8.6 mg daily.incr ease oral hydration Anxiety 70055466 F41.9 continue ativan 0.5 mg q6 prnpsych eval and tx- she had recent amputation , I think she will benefit from speaking with psych, she will need support coping with limp loss. [id number] MIRI NORTON [address] [place] [address] [place] [address] 08/31/2023 10:12:07 09/05/2023 16:19:16 Cough 40331109 R05.9 08/29: non productive congested cough- is not interrupti ng with sleepchest xay showed no active infiltrate s or changes ofpulmonar y venous congestion or evidence of a pleural effusion.w ill start mucinex 600 mg q12 for 7 days and re eval. Amputated below knee 299 560917 Z89.519 Critical limb ischemia of right lower extremity now s/p right below knee amputation .continue oxycodone 5 mg q 6 prnfollow up with vascular on 09/01/23PT/O T eval and treatment for conditioni ng and strengthen ing. Peripheral vascular disease 267110429 I73.9 s/p below knee amputation continue asa, plavix and eliquiscon tinue oxycodonec ontinue lyrica 150 mg qd and 200 mg at HS Essential hypertension [id number] I10 continue lisinopril 5 mg dailyconti nue metoprolol 50 mg bidfurosem oxana 40 mg dailymonit or BP /labs Hypothyroidism 32670121 E03.9 continue levothyrox ine 200 mcgtsh 8- recheck labs in 6-8 weeks Anxiety 71418479 F41.9 continue ativan 0.5 mg q6 prnpsych eval and tx- she had recent amputation , I think she will benefit from speaking with psych, she will need support coping with limp loss.mood is stable today. [id number] MIRI NORTON [address] [address] 09/05/2023 08:59:26 09/08/2023 16:20:28 Cough 39867694 R05.9 resolved Amputated below knee 299 172935 Z89.519 right below knee amputation .continue oxycodone 5 mg q 6 prncontinu e PT/OT eval and treatment for conditioni ng and strengthen ing.contin ue wound care Betadine, dry gauze, the stump water resource agent and the amputation shield. Peripheral vascular disease 590327612 I73.9 s/p below knee amputation continue asa, plavix and eliquiscon tinue oxycodonec ontinue lyrica 150 mg qd and 200 mg at HS Essential hypertension 63537530 I10 continue lisinopril 5 mg dailyconti nue metoprolol 50 mg bidfurosem oxana 40 mg dailymonit or BP /labs Hypothyroidism 53227314 E03.9 continue levothyrox ine 200 mcgtsh 8- recheck labs in 6-8 weeks Anxiety 85957165 F41.9 continue ativan 0.5 mg q6 prnshe was seen by consulting psychologist who is recommendi ng starting duloxetine , benfits discuused ,patient will like to think about it. Carotid ar dahlia stenosis 39514839 I65.29 stent placement in juner. Amanda would like her on aspirin and plavix for 3 months post op, then can resume aspirin and eliquis.Sh e will need a carotid duplex later on this summer to recheck the right carotid, determine whether to reinterven e on the stent. [id number] MIRI NORTON JOSEY [address] [place] [phone] 5 09/07/2023 11:22:32 09/09/2023 08:57:56 Amputated below knee 573873461 Z89.519 right below knee amputation .continue oxycodone 5 mg q 6 prncontinu e PT/OT eval and treatment for conditioni ng and strengthen ing.contin ue wound care Betadine, dry gauze, the stump water resource agent and the amputation shield. Peripheral vascular disease 155997183 I73.9 s/p below knee amputation continue asa, plavix and eliquiscon tinue oxycodonec ontinue lyrica 150 mg qd and 200 mg at HS Essential hypertension 58986012 I10 continue lisinopril 5 mg dailyconti nue metoprolol 50 mg bidfurosem oxana 40 mg dailymonit or BP /labs Hypothyroidism 66951168 E03.9 continue levothyrox ine 200 mcgtsh 8- recheck labs in 6-8 weeks Anxiety 17125331 F41.9 continue ativan 0.5 mg q6 prnshe was seen by consulting psychologist who is recommendi ng starting duloxetine , benfits discuused ,patient will like to think about it. Carotid ar dahlia stenosis 49278051 I65.29 stent placement in juner. Marecki would like her on aspirin and plavix for 3 months post op, then can resume aspirin and eliquis.Sh e will need a carotid duplex later on this summer to recheck the right carotid, determine whether to reinterven e on the stent. [id number] MIRI NORTON [facility] JOSEY [address] [place] [address] 5 09/12/2023 11:21:52 09/14/2023 16:46:41 Amputated below knee 709347316 Z89.519 right below knee amputation .continue oxycodone 5 mg q 6 prncontinu e PT/OT eval and treatment for conditioni ng and strengthen ing.contin ue wound care Betadine, dry gauze, the stump water resource agent and the amputation shield. Peripheral vascular disease 529519446 I73.9 s/p below knee amputation continue asa, plavix and eliquiscon tinue oxycodone Q 6continue lyrica 150 mg qd and 200 mg at HS Essential hypertension 35754951 I10 continue lisinopril 5 mg dailyconti nue metoprolol 50 mg bidfurosem oxana 40 mg dailymonit or BP /labs Hypothyroidism 98751479 E03.9 continue levothyrox ine 200 mcgtsh 8- recheck labs in 6-8 weeks Constipation 52212830 K5 9.09 she reports that she has [...] evening, will order imaging.in crease oral hydration [id number] MIRI NORTON VINI DOWLING [address] [place] [phone] 5 09/15/2023 09:07:09 09/21/2023 10:30:12 Amputated below knee 103404040 Z89.519 right below knee amputation .continue oxycodone 5 mg q 6 prncontinu e PT/OT eval and treatment for conditioni ng and strengthen ing.contin ue wound care Betadine, dry gauze, the stump water resource agent and the amputation shield. Peripheral vascular disease 990133036 I73.9 s/p below knee amputation continue asa, plavix and eliquiscon tinue oxycodone Q 6continue lyrica 150 mg qd and 200 mg at HS Essential hypertension 80578175 I10 continue lisinopril 5 mg dailyconti nue metoprolol 50 mg bidfurosem oxana 40 mg dailymonit or BP /labs Hypothyroidism 93316550 E03.9 labs completed on 09/06 seen today and noted with TSH 16.3 and T4 5.1she is currently taking levothyrox ine 200 mcg daily, will increase to 225 mcg and recheck 10/26 or sooner.she reports being tired at times but is not having any other sx at this time Constipation 53335955 K5 9.09 see hpinormact felipe bowel soundscont inue colace 100 mg bidcontinu e miralax 17 gm daily and increase senna 8.6 mg to BID [id number] Afia Tierney MD [address] [place] [address] 09/19/2023 15:52:03 09/21/2023 10:49:23 Amputated below knee 915187615 Z89.511 As above. Peripheral vascular disease 143663820 I73.89 S/P right BKA.Contin ue Plavix 75 [...] stapes out then and then can start water resource agent.P rosthetics consult when ready. Essential hypertension 44737423 I10 BP remains in good control on lisinopril 5 mg qd, metoprolol 50 mg BID, and furosemide 40 mg qdMonitor BP and labs. Hypothyroidism 21386385 E03.9 Last TSH sl. high, with nl FT4, but low FT3.Contin ue levothyrox ine 225 mcgRecheck TSH as planned. Constipation 20030991 K5 9.09 No c/o today.Cont inue bowel meds as ordered.Mo nitor bowel function. Carotid ar dahlia stenosis 60373207 I65.29 S/P stent placement in 06/2023.To be on ASA and Plavix x 3 months.The n can stop Plavix.To have repeat U/S next month [id number] MIRI NORTON [facility] [address] [place] [address] 09/22/2023 13:52:47 09/23/2023 15:18:26 Amputated below knee 580223305 Z89.519 right below knee amputation .continue oxycodone 5 mg q 6 prncontinu e PT/OT for conditioni ng and strengthen ing.contin ue wound care Betadine, dry gauze, the stump water resource agent and the amputation shield.lupe sing states wound healing without s/sx of infection. Peripheral vascular disease 381101180 I73.9 continue asa, plavix and eliquiscon tinue oxycodone Q 6continue lyrica 150 mg qd and 200 mg at HS Essential hypertension 13839950 I10 continue lisinopril 5 mg dailyconti nue metoprolol 50 mg bidfurosem oxana 40 mg dailymonit or BP /labs Hypothyroidism 57596585 E03.9 Continue levothyrox ine 225 mcgrecheck TSH around 10/26 [id number] MIRI NORTON [facility] [address] [place] [address] 09/27/2023 11:23:38 10/18/2023 07:43:35 Amputated below knee 453070757 Z89.519 right below knee amputation .continue oxycodone 5 mg q 6 prncontinu e PT/OT for conditioni ng and strengthen ing.contin ue wound care Betadine, dry gauze, the stump water resource agent and the amputation shield.lupe sing states wound healing without s/sx of infection. Peripheral vascular disease 719604735 I73.9 continue asa, plavix and eliquiscon tinue oxycodone Q 6continue lyrica 150 mg qd and 200 mg at HS Essential hypertension 21587965 I10 continue lisinopril 5 mg dailyconti nue metoprolol 50 mg bidfurosem oxana 40 mg dailymonit or BP /labs Hypothyroidism 86983280 E03.9 Continue levothyrox ine 225 mcgrecheck TSH around 8 Anxiety 52946678 F41.9 continue ativan 0.5 mg q6 prnshe has agreed to try antidepres santshe was started on fluoxetine 20 mg daily on 09/18will monitor mood and behavior Diabetes mellitus 249072 09 E11.9 no recent BGL, will order weekly checks.con tinue metformin 500 mg BIDcontinu e to monitor FS [id number] MIRI NORTON [address] [address] 10/04/2023 09:15:00 10/18/2023 08:13:38 Amputated below knee 500053723 Z89.519 right below knee amputation .continue oxycodone 5 mg q 6 prncontinu e PT/OT for conditioni ng and strengthen ing.contin ue wound care Betadine, dry gauze, the stump water resource agent and the amputation shield.lupe francisco states wound healing without s/sx of infection. she will have remaining stable removed this upcoming friday 10/06. Peripheral vascular disease 369450337 I73.9 continue asa, plavix and eliquiscon tinue oxycodone Q 6continue lyrica 150 mg qd and 200 mg at HS Essential hypertension 51644642 I10 continue lisinopril 5 mg dailyconti nue metoprolol 50 mg bidfurosem oxana 40 mg dailymonit or BP /labs Hypothyroidism 63107463 E03.9 Continue levothyrox ine 225 mcgrecheck TSH around 10/26 Anxiety 32043859 F41.9 continue ativan 0.5 mg q6 prnshe has agreed to try antidepres santshe was started on fluoxetine 20 mg daily on 09/18will monitor mood and behavior Diabetes mellitus 306125 09 E11.9 no recent BGL, will order weekly checks.con tinue metformin 500 mg BIDcontinu e to monitor FS7/724 BGL 120 [id number] MIRI NORTON [address] [address] 10/06/2023 08:54:05 10/18/2023 08:26:39 Amputated below knee 635420827 Z89.519 right below knee amputation .continue oxycodone 5 mg q 6 prn- will change to 24 prn and eventually stop of noted she has not used in 3 days.galindo nue PT/OT for conditioni ng and strengthen ing.contin ue wound care Betadine, dry gauze, the stump water resource agent and the amputation shield.wou nd healing without s/sx of infection. she will have remaining nehemias removed this upcoming friday 10/06. Peripheral vascular disease 787793051 I73.9 continue asa, plavix and eliquiscon tinue oxycodone Q 6continue lyrica 150 mg qd and 200 mg at HS Essential hypertension 64389153 I10 continue lisinopril 5 mg dailyconti nue metoprolol 50 mg bidfurosem oxana 40 mg dailymonit or BP /labs Anxiety 56939628 F41.9 continue ativan 0.5 mg q6 prnshe has agreed to try antidepres santshe was started on fluoxetine 20 mg daily on 09/18[facility] monitor mood and behavior [id number] [facility]I [facility]ON [facility] [address] [place] [phone] 10/10/2023 10:05:30 10/18/2023 09:02:23 Amputated below knee 649873819 Z89.519 right below knee amputation .remaining nehemias removed on 10/07/23- she has small superficia l open area moist and draining scant serous output. wound care for to cleanse with NS and apply aquacel cover with gauze.cont inue oxycodone 5 mg q 12 prn-contin ue PT/OT for conditioni ng and strengthen ing.contin ue wound care, the stump water resource agent and the amputation shieldwoun d healing without s/sx of infection. Peripheral vascular disease 259054220 I73.9 continue asa, plavix and eliquiscon tinue oxycodone Q 6continue lyrica 150 mg qd and 200 mg at HS Essential hypertension 91599084 I10 BP has been underconti nue lisinopril 5 mg dailyconti nue metoprolol 50 mg bidfurosem oxana 40 mg dailymonit or BP /labs Anxiety 90401517 F41.9 continue ativan 0.5 mg q6 prnshe has agreed to try antidepres santshe was started on fluoxetine 20 mg daily on 09/18will monitor mood and behavior Carotid ar dahlia stenosis 55070281 I65.29 10/09:Histo ry of bilateral TCAR and [...] whether to reinterven e on the stent. [id number] Tere HerreraMariajose MARTINI JOSEY [address] [facility] [place] [address] 10/14/2023 09:41:31 10/18/2023 09:28:24 Amputated below knee 500996915 Z89.519 does not need wrap. healedappl y skin prep BID nsg updated.wo rking with PTpain controlled . Vascular dementia 855927 004 F01.54 chronis stablediff iculty to recall thoughts and respond to questions. mood stablecont inue supportive caremonito r for decline. [id number] ZENOBIA BRADLEY JOSEY [address] [place] [address] 10/20/2023 09:58:42 10/22/2023 09:32:05 Amputated below knee 308079892 Z89.519 right below knee amputation .remaining nehemias removed on 10/07/23- continues to heal well.stop oxycodone 5 mg q 12 prn due to minimal usecontinu e PT/OT for conditioni ng and strengthen ing.contin ue wound care, the stump water resource agent and the amputation shieldwoun d healing without s/sx of infection. Peripheral vascular disease 424409628 I73.9 continue asa, plavix and eliquiscon tinue lyrica 150 mg qd and 200 mg at HS for pain mgmt Essential hypertension 09962761 I10 VSS, BP soft on occasionco ntinue lisinopril 5 mg dailyconti nue metoprolol 50 mg bidfurosem oxana 40 mg dailymonit or BP /labs Anxiety 51253404 F41.9 continue ativan 0.5 mg q6 prn - occasional use, discussed with nsg. will renew for another 14 days.Dulox etine 20 mg daily recently started, orly. well so far, nsg. feels it has been helping mood and behaviors. Continue to monitorPsy ch following as well. Carotid ar dahlia stenosis 01741390 I65.29 History of bilateral TCAR and left [...] ultrasound , plavix, and follow up appt. [id number] MIRI NORTON [address] [facility] [place] [address] 10/25/2023 10:59:01 10/26/2023 15:44:22 Amputated below knee 893437489 Z89.519 right below knee amputation , continues to heal well.now open to air ,wound healing without s/sx of infection. continue tylenol and lyrica Peripheral vascular disease 702895720 I73.9 continue asa, plavix and eliquiscon tinue lyrica 150 mg qd and 200 mg at HS for pain mgmtwill discuss need to continue plavix at vascular appt 10/28/23 Essential hypertension 32788003 I10 continue lisinopril 5 mg dailyconti nue metoprolol 50 mg bidfurosem xoana 40 mg dailymonit or BP /labs Anxiety 43872266 F41.9 continue ativan 0.5 mg q6 prn - occasional use, discussed with nsg. will renew for another 14 days.Dulox etine 20 mg daily recently started, orly. well so far, nsg. feels it has been helping mood and behaviors. - seen by consulting psychologist on 10/23 reports feeling some improvemen t with duloxetine , recommende d to continueCo ntinue to monitorPsy ch following as well. Carotid ar dahlia stenosis 93166191 I65.29 History of bilateral TCAR and left [...] will be discussed at that appointmen t. [id number] MIRI NORTON [address] [place] [address] 10/26/2023 12:11:32 10/31/2023 16:07:08 COVID-19 320168108 U07.1 see hpiwill started paxlovid, isolation precaution supportati ve treatment: with mucinex 600 mg BID for 5 dayspaxlov id as orderedprn neb tx for sob. [id number] MIRI NORTON [address] [place] [address] 10/31/2023 16:29:45 11/01/2023 13:09:54 COVID-19 408013252 U07.1 she has been stable no reportable sx notedwill received last dose of paxlovid tonightiso lation precaution continue supportati ve treatment: prn neb tx for sob. Amputated below knee 299 871748 Z89.519 right below knee amputation , continues to heal well.now open to air ,wound healing without s/sx of infection. continue tylenol and lyrica Peripheral vascular disease 208664025 I73.9 continue asa, plavix and eliquiscon tinue lyrica 150 mg qd and 200 mg at HS for pain mgmtwill discuss need to continue plavix at vascular appt 10/28/23 Essential hypertension 33843880 I10 continue lisinopril 5 mg dailyconti nue metoprolol 50 mg bidfurosem oxana 40 mg dailymonit or BP /labs Anxiety 68098953 F41.9 continue ativan 0.5 mg q6 prn -continue Duloxetine 20 mg dailymood has been good.Galindo nue to monitorPsy ch following as well. Carotid ar dahlia stenosis 07184241 I65.29 History of bilateral TCAR and left [...] will be discussed at that appointmen tCandis [id number] MIRI NORTON [address] [place] [address] rd [place]NANDEZ [address] 11/04/2023 09:52:30 11/08/2023 11:09:10 COVID-19 492327359 U07.1 completed anti-viral . Amputated below knee 299 060535 Z89.519 right below knee amputation , continues to heal well.now open to air ,wound healing without s/sx of infection. continue tylenol and lyrica Peripheral vascular disease 728058085 I73.9 continue asa, plavix and eliquis- on hold for now for melenacont inue lyrica 150 mg qd and 200 mg at HS for pain mgmt Essential hypertension 63411799 I10 continue lisinopril 5 mg dailyconti nue metoprolol 50 mg bidfurosem oxana 40 mg dailymonit or BP /labs Anxiety 57988490 F41.9 continue ativan 0.5 mg q6 prn -continue Duloxetine 20 mg dailyConti nue to monitorPsy ch following as well. Carotid ar dahlia stenosis 79852986 I65.29 History of bilateral TCAR and left [...] be discussed at that appointmen tCandis Chamberlain [id number] K92.1 11/02: nursing report black tarry stool, [...] hematemesi s, weakness, dizziness and or pallor. [id number] MIRI NORTON [address] [place] [address] [place]NANDE[place] [address] 11/07/2023 08:49:06 11/09/2023 10:55:24 Melena 0665364 K92.1 11/06: continue to have black tarry [...] s, weakness, dizziness and or pallor. Anemia 098945129 D64.9 H/H trending down today noted at 09/12-signi ficant drop in 7 days tested 3 times. continue ferrous sulfate 325 mg dailycont. Vit D 1000u daily [id number] ZENOBIA Ulloa [address] [place] [address] [place] [address] 11/12/2023 07:51:13 11/18/2023 09:17:41 Anemia 378028973 D64.9 per [facility] summary: Held Eliquis, aspirin and Plavix since [...] obtained with hemoglobin 6 on admission to [facility],No reports of blood in stool or melena [...] bmp weekly on mondays x 3 Esophagitis 95968409 K20 .90 no melena noted in hospital, [...] bmp weekly on mondays x 3 Anxiety 04049769 F41.9 while in hopsital her ativan 0.5 mg q6 prn was discontinu edcontinue Duloxetine 20 mg dailyConti nue to monitorPsy ch following as well. Hypothyroidism 50724980 E03.9 adjusted in hospitalco nt levothyrox ine 200 mcg po dailyreche ck tsh in 8 weeksmonit or Essential hypertension 40970505 I10 bp initially soft in hospital, lisinopril was held, now resolved and resumedcon tlisinopri l 5 mg po dailymetop rolol 50 mg po q 12 hoursmonit or Amputated below knee 299 030100 Z89.519 right below knee amputation , continues to heal well.galindo nue tylenol and lyricafu with vascular as planned Peripheral vascular disease 121825853 I73.9 eliquis on holdcontin ueasa, plavixlyri ca 150 mg qdmonitor Pressure i njury of coccygeal region of back stage II [id number] 4315607 L89.152 healing denuded skin to right coccyx11/11 apply barrier cream topically bid and prnfrequen t brief changes and reposition ingmonitor for infection Vascular dementia 584616 004 F01.54 stablediff iculty to recall thoughts and respond to questions at baseline per staffmood stablecont inue supportive caremonito r for decline. [id number] MIRI NORTON [address] [place] [address] [place] [address] 11/14/2023 09:54:52 11/18/2023 10:04:39 Esophagitis 86935631 K20.90 no melena noted in hospital, but [...] bmp weekly on mondays x 3 Anemia 854863508 D64.9 per [facility] summary: Held Eliquis, aspirin and Plavix since [...] obtained with hemoglobin 6 on admission to [facility],No reports of blood in stool or melena [...] bmp weekly on mondays x 3 Anxiety 82095411 F41.9 while in hopsital her ativan 0.5 mg q6 prn was discontinu edcontinue Duloxetine 20 mg dailyConti nue to monitorPsy ch following as well. Hypothyroidism 61817642 E03.9 adjusted in hospitalco nt levothyrox ine 200 mcg po dailyreche ck tsh in 8 weeksmonit or Essential hypertension 32932018 I10 bp initially soft in hospital, lisinopril was held, now resolved and resumedcon tlisinopri l 5 mg po dailymetop rolol 50 mg po q 12 hoursmonit or Amputated below knee 299 469858 Z89.519 right below knee amputation , continues to heal well.galindo nue tylenol and lyricafu with vascular as planned Peripheral vascular disease 893400280 I73.9 eliquis on holdcontin ueasa, plavixlyri ca 150 mg qdmonitor Pressure i njury of coccygeal region of back stage II 6563618345 7076939 L89.152 healing denuded skin to right coccyx11/11 apply barrier cream topically bid and prnfrequen t brief changes and reposition ingmonitor for infection Vascular dementia 349688 004 F01.54 stablediff iculty to recall thoughts and respond to questions at baseline per staffmood stablecont inue supportive caremonito r for decline. [id number] MIRI NORTON [address] [address] 11/17/2023 14:04:30 11/23/2023 09:14:45 Anxiety 06139719 F41.9 stableDulo xetine 20 mg dailyConti nue to monitorPsy ch following as well. Hypothyroidism 79985096 E03.9 adjusted in hospitalco nt levothyrox ine 200 mcg po dailyreche ck tsh in 8 weeksmonit or Essential hypertension 30547365 I10 stable-lis inopril 5 mg po dailymetop rolol 50 mg po q 12 hoursmonit or Amputated below knee 299 173291 Z89.519 right below knee amputation , continues to heal well.galindo nue tylenol and lyricafu with vascular as planned Peripheral vascular disease 173388497 I73.9 eliquis stoppedcon tinue:asa, plavixlyri ca 150 mg qdmonitor Vascular dementia 247121 [address] declinebas sahara difficulty with word findingmoo d stablecont inue supportive caremonito r for decline. Anemia 648355259 D64.9 continuefe rrous sulfate 325 mg dailycont. Vit D 1000u dailymonit or cbc and bmp weekly on mondays x 3 [id number] MIRI NORTON [address] [address] 11/21/2023 11:10:23 11/23/2023 10:20:09 Anxiety 17247591 F41.9 stableDulo xetine 20 mg dailyConti nue to monitorPsy ch following as well. Hypothyroidism 49089476 E03.9 adjusted in hospitalco nt levothyrox ine 200 mcg po dailyreche ck tsh in 8 weeksmonit or Essential hypertension 97611344 I10 stable-lis inopril 5 mg po dailymetop rolol 50 mg po q 12 hoursmonit or Amputated below knee 299 887455 Z89.519 right below knee amputation , continues to heal well.galindo nue tylenol and lyricafu with vascular as planned Peripheral vascular disease 828037173 I73.9 eliquis stoppedcon tinue:asa, plavixlyri ca 150 mg qdmonitor Vascular dementia 477642 [address] declinebas sahara difficulty with word findingmoo d stablecont inue supportive caremonito r for decline. Anemia 794729537 D64.9 continuefe rrous sulfate 325 mg dailycont. Vit D 1000u dailymonit or cbc and bmp weekly on mondays x 3 [id number] MIRI NORTON [address] [address] 11/29/2023 10:14:07 12/01/2023 14:32:41 Anxiety 50062226 F41.9 stablecont inue duloxetine 20 mg daily- she is having a positive response with med.Contin ue to monitorupd ate HDBH with concerns. Hypothyroidism 30891623 E03.9 adjusted in hospitalco nt levothyrox ine 200 mcg po dailyreche ck tsh in 8 weeks- ord for . 11/18monito r Essential hypertension 67868606 I10 continue lisinopril 5 mg po dailyconti nue metoprolol 50 mg po q 12 hoursmonit or Amputated below knee 299 278777 Z89.519 right below knee amputation , continues to heal well.galindo nue tylenol and lyricafu with vascular as planned Peripheral vascular disease 281132265 I73.9 eliquis stoppedcon tinue:asa, plavixlyri ca 150 mg qdmonitor Vascular dementia 931057 004 F01.54 expect declinebas sahara difficulty with word findingmoo d stablecont inue supportive caremonito r for decline. Anemia 485566292 D64.9 continuefe rrous sulfate 325 mg dailycont. Vit D 1000u dailymonit or cbc and bmp weekly on mondays x 39/3: H/H has been stable increasing every week. [id number] MIRI NROTON [address] [address] 12/01/2023 11:44:42 12/05/2023 13:22:49 Amputated below knee 999033328 Z89.519 right below knee amputation open wound noted on stump concerning for infection, yellowish drainage noted on dressing ,will send culture.co ntinue tylenol and lyricafu with vascular as planned Peripheral vascular disease 398548509 I73.9 eliquis stoppedcon tinue:asa, plavixlyri ca 150 mg qdmonitor Vascular dementia 422511 004 F01.54 expect declinebas sahara difficulty with word findingmoo d stablecont inue supportive caremonito r for decline. [id number] MIRI NORTON [address] [address] 12/05/2023 09:49:14 12/07/2023 10:15:18 Amputated below knee 811688155 Z89.519 right below knee amputation wound culture pendingcon tinue tylenol and lyricafu with vascular as planned Peripheral vascular disease 548111131 I73.9 eliquis stoppedcon tinue:asa, plavixlyri ca 150 mg qdmonitor Vascular dementia 974849 004 F01.54 expect declinebas sahara difficulty with word findingmoo d stablecont inue supportive caremonito r for decline. [id number] MIRI NORTON [address] [id number] 12/12/2023 08:48:56 12/14/2023 08:51:51 Amputated below knee [id number] Z89.519 right below knee amputation continue tylenol and lyricafu with vascular as planned on 12/16/23 Peripheral vascular disease [id number] I73.9 eliquis stoppedcon tinue:asa, plavixlyri ca 150 mg qdmonitor Vascular dementia 510139 004 F01.54 expect declinebas sahara difficulty with word findingmoo d stablecont inue supportive caremonito r for decline. Subconjunc tival hemorrhage of left eye [id number] 34808 H11.32 no pain or visual changesnur sing to update provider for changes in vision, pain or discharge. can apply warm compress for comfort if irritated. 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 Peripheral vascular disease [id number] I73.9 12/15 carotid duplex shows 70 to 99% stenosis in her right ICA, this is s/p TCAR and she has a patent stent. Her left side shows 1 to 49% stenosis in the ICA with a patent stent.repe at duplex in 6 months eliquis stoppedcon tinue:asa, plavixlyri ca 150 mg qdmonitor Vascular dementia 966380 004 F01.54 expect declinebas sahara difficulty with word findingmoo d stablecont inue supportive caremonito r for decline. Subconjunc tival hemorrhage of left eye [id number] 15349 H11.32 resolvingn o pain or visual changesnur sing to update provider for changes in vision, pain or discharge. can apply warm compress for comfort if irritated. monitor for worsening sx, pt is on asa and plavix daily.H/H stable , will continue to monitor Insomnia 952918230 G47.0 0 see HPIstop melatonins tart trazodone 50 mg at HSmonitor for effectiven ess [id number] MIRI NORTON VINI JOSEY [address] [place] [address] 12/22/2023 11:08:23 12/23/2023 12:52:01 Amputated below knee 151243600 Z89.519 right below knee amputation continue tylenol [...] and promote wound healing. Peripheral vascular disease 061883044 I73.9 12/15 carotid duplex shows 70 to [...] plavixlyri ca 150 mg qdmonitor Vascular dementia 028582 004 F01.54 expect declinebas sahara difficulty with word findingmoo d stablecont inue supportive caremonito r for decline. Subconjunc tival hemorrhage of left eye [id number] 41346 H11.32 resolvingn o pain or visual changesnur sing to update provider for changes in vision, pain or discharge. can apply warm compress for comfort if irritated. monitor for worsening sx, pt is on asa and plavix daily.H/H stable , will continue to monitor Insomnia 540738355 G47.0 0 continue trazodone 50 mg at HS- will reassess at next visit.prakash cat for effectiven essdiscuss ed with patient avoiding caffeine drinks before bed, antidepres nuria and BP meds can causes insomnia. we discussed trying relaxation techniques such as deep breathing and guided imagery. [id number] MIRI NORTON [address] [place] [address] 12/27/2023 14:42:28 12/28/2023 11:41:01 Amputated below knee [id number] Z89.519 right below knee amputation continue tylenol [...] and promote wound healing. Peripheral vascular disease 351232549 I73.9 12/15 carotid duplex shows 70 to [...] plavixlyri ca 150 mg qdmonitor Vascular dementia 674526 004 F01.54 expect declinebas sahara difficulty with word findingmoo d stablecont inue supportive caremonito r for decline. Subconjunc tival hemorrhage of left eye 2040830058 04006 H11.32 resolvingn o pain or visual changesnur sing to update provider for changes in vision, pain or discharge. can apply warm compress for comfort if irritated. monitor for worsening sx, pt is on asa and plavix daily.H/H stable , will continue to monitor Insomnia 153373493 G47.0 0 continue trazodone 50 mg at HS- will reassess at next visit.prakash cat for effectiven essdiscuss ed with patient avoiding caffeine drinks before bed, antidepres nuria and BP meds can causes insomnia. we discussed trying relaxation techniques such as deep breathing and guided imagery. [id number] MIRI NORTON [address] [place] [address] 01/02/2024 08:33:03 01/03/2024 11:47:07 Amputated below knee 855066776 Z89.519 followed closely by vascular.r ight below [...] and promote wound healing. Peripheral vascular disease 005424625 I73.9 12/15 carotid duplex shows 70 to [...] plavixlyri ca 150 mg qdmonitor Vascular dementia 159419 [address] declinebas sahara difficulty with word findingmoo d stablecont inue supportive caremonito r for decline. Subconjunc tival hemorrhage of left eye [id number] 01549 H11.32 resolvingn o pain or visual changesnur sing to update provider for changes in vision, pain or discharge. can apply warm compress for comfort if irritated. monitor for worsening sx, pt is on asa and plavix daily.H/H stable , will continue to monitor Insomnia 792023217 G47.0 0 continue trazodone 50 mg at [...] Member ID Guarantor Name 12/28/2023 2 [place] [facility] Marixa Chan [id number] Marixa Chan 12/27/2023 1 MEDICARE B[place]: [employer] Marixa Chan [id number] Marixa Chan Notes Date Note Type Note [...] for acute rounding visit MIRI NORTON [address] [facility], [facility] [address], [place], [address], [employer] 12/12/2023 14:39:04 12/19/2023 text/html ROS as noted [...] playing television all night. MIRI NORTON [address] [facility], [address], [place], [address], [employer] 12/20/2023 15:35:55 12/22/2023 text/html ROS as noted [...] have a stump strinker. MIRI NORTON 38 [facility] [address], [place], [address], [facility] 12/22/2023 16:22:53 12/27/2023 text/html ROS as noted [...] not have a stump strinker. MIRI NORTON [address] [place] [address] [address], [place], [address], [facility] 12/27/2023 15:20:31 01/02/2024 text/html ROS as noted [...] have a stump strinker. MIRI NORTON [address] [facility], [facility] [address], [place], [address], [facility] 01/02/2024 13:22:00 OBGyn Episode No OBEpisode recorded.
--- OUTSIDE RECORDS SUMMARY | 2025-01-07 07:42 | XMS_ITS | Clinical Summary ---
Author Organization [facility] it Address [address] [place] [address] Care Team Providers Care Payroll Human Resources Assistant Name Role Phone Unavailable Primary Care Provider Unavailabl e Immunizations Immunization Administration Dates Next Due Pfizer SARS-CoV-2 COVID-19, mRNA, LNP-S, preservative free 07/02/2020,06/07/2020 Surgical History Surgery Date Site/Laterality Comments NECK SURGERY PROCEDURE: HISTORICAL NECK SURGERY; COMMENT: spinal stenosis TONSILLECTOMY PROCEDURE: HISTORICAL TONSILLECTOMY CHOLECYSTECTOMY 09/1989 PROCEDURE: HISTORICAL CHOLECYSTECTOMY BREAST REDUCTION PROCEDURE: [place] BREAST REDUCTION ROBOTIC ASSISTED HYSTERECTOMY 03/05/14 PROCEDURE: [...]
--- OUTSIDE RECORDS SUMMARY | 2025-01-07 07:43 | XMS_ITS | Clinical Summary ---
Author Organization [employer] Address [address] [facility] 7t [place] [address] Care Team Providers Care Mica Miner Name Role Phone Unavailable Primary Care Provider [...] Most Recently Relevant to Health Maintenance Insurance [facility] STAND ADULT
--- OUTSIDE RECORDS SUMMARY | 2025-01-07 07:43 | XMS_ITS | Encounter Summary ---
Author Organization [facility] Address [address] [place] [address] Phone Care Team Providers Care Consulting Networking Engineer Name Role Phone Agueda Ann MD Primary Care Provider [phone] Andie Rossi MD Unavailable [phone] West Doll MD Unavailable [phone] Britany Coles MD Unavailable [phone] Naun Hoang MD Unavailable + Agueda Ann MD Unavailable Mely Bhatti RN Unavailable [email or web address] Encounter Details Date Type Department Care Team (Late st Contact Info) Description 12/25/2022 Procedure Pass [facility] [address] [place] [address] Social History Tobacco Use Types Packs/Day Years [...] documented as of this encounter Care Teams Consulting Networking Engineer Relationship Specialty Start Date End Date Agueda Ann MD [address] [place] [address] [email or web address] PCP - General Family Medicine 02/01/19 Andie Rossi MD [address] [place] [address] Neurology 03/02/19 West Doll MD [address] [place] [address] 104 [place] [address] Cardiology 03/02/19 Britany Coles MD [address] [place] [address] 140 [place] [address] Orthopedic Surgery 03/02/19 [place] [address] [place] [address] Infectious Diseases 03/02/19 Agueda Ann MD [address] [address] [email or web address] Insurance Assigned Provider 07/02/23 04/02/24 Mely Bhatti RN [address] [address] [email or web address] PHCM Development Analyst 05/12/23 06/09/23 documented as of this encounter Additional Source Comments The information contained in this document represents components of the legal health record. It is not the complete legal health record.[facility]
--- OUTSIDE RECORDS SUMMARY | 2025-01-07 07:43 | XMS_ITS | Encounter Summary ---
Author Organization [employer] Address [address] [facility] 7t [place] [address] Care Team Providers Care Returned Telephone Equipment Appraiser Name Role Phone Unavailable Primary Care Provider Unavailabl e Encounter Details Date Type Department Care Team (Latest Contact Info) Description 05/02/2018 Abstract [facility] CONVERSIONS Dental, Provider, DDS Social History Tobacco [...]
--- OUTSIDE RECORDS SUMMARY | 2025-01-07 07:43 | XMS_ITS | Encounter Summary ---
Author Organization [employer] Address [address] [facility] 7t [place] [address] Care Team Providers Care Sugar Refiner Name Role Phone Unavailable Primary Care Provider Unavailabl e Encounter Details Date Type Department Care Team (Latest Contact Info) Description 07/09/2020 Abstract [facility] CONVERSIONS Dental, Provider, DDS Social History Tobacco [...]
--- OUTSIDE RECORDS SUMMARY | 2025-01-07 07:43 | XMS_ITS | Patient Health Record ---
Author Organization [address] [place] [address] [address] [facility] Address [address] [id number] Care Team Providers Care Siding Applicator Name Role Phone BARTOLO Dunbar Supriya [phone] Reason For Referral No Information Plan Of Treatment No Information
--- OUTSIDE RECORDS SUMMARY | 2025-01-07 07:43 | XMS_ITS | Encounter Summary ---
Author Organization [employer] Address [address] [facility] 7t [place] [address] Care Team Providers Care Taxation Consultant Name Role Phone Unavailable Primary Care Provider Unavailabl e Encounter Details Date Type Department Care Team (Latest Contact Info) Description 06/29/2021 Abstract [facility] CONVERSIONS Dental, Provider, DDS Social [...]
--- OUTSIDE RECORDS SUMMARY | 2025-01-07 07:43 | XMS_ITS | Encounter Summary ---
Author Organization [facility] [place] Address [address] [place] [address] Phone Care Team Providers Care Wallpaper Printer Helper Name Role Phone Agueda Ann MD Primary Care Provider Andie Rossi MD Unavailable [phone] West Doll MD Unavailable Britany Coles MD Unavailable [phone] Naun Hoang MD Unavailable + Agueda Ann MD Unavailable Mely Bhatti RN Unavailable [email or web address] Encounter Details Date Type Department Care Team (Late st Contact Info) Description 12/25/2022 Procedure Pass Non-Invasive Cardiology 30 [place] [address] Social History Tobacco Use Types Packs/Day Years [...] documented as of this encounter Care Teams Wallpaper Printer Helper Relationship Specialty Start Date End Date Agueda Ann MD [address] [place] [address] [email or web address] PCP - General Family Medicine 02/01/19 Andie Rossi MD 48 [place] [address] Neurology 03/02/19 West Doll MD [address] [place] [address] 104 [place] [address] Cardiology 03/02/19 Britany Coles MD [address] [place] [address] 140 [place] [phone] Orthopedic Surgery 03/02/19 [place] [address] [place] [address] Infectious Diseases 03/02/19 Agueda Ann MD [address] [address] [email or web address] Insurance Assigned Provider 07/02/23 04/02/24 Mely Bhatti RN [address] [address] [email or web address] .[email or web address] PHCM Wafer Fab Operator 05/12/23 06/09/23 documented as of this encounter Additional Source Comments The information contained in this document represents components of the legal health record. It is not the complete legal health record.[facility] [place]
--- OUTSIDE RECORDS SUMMARY | 2025-01-07 07:43 | XMS_ITS | Encounter Summary ---
Author Organization [facility] Address [address] [place] [address] Phone Care Team Providers Care Home Care Companion Name Role Phone Agueda Ann MD Primary Care Provider [phone] Andie Rossi MD Unavailable West Doll MD Unavailable Britany Coles MD Unavailable [phone] Naun Hoang MD Unavailable + Agueda Ann MD Unavailable Latosha Garcia OT Unavailable Latosha Garcia OT Unavailable [phone] Mely Bhtati RN Unavailable [email or web address] Encounter Details Date Type Department Care Team (Late st Contact Info) Description 07/31/2021 Procedure Pass [facility] Endoscopy Admitting Dept Virtual Department 30 [place] [address] Social History Tobacco Use Types Packs/Day Years [...] high school, GED, job training, learning the [place]ry[place] language, technical skills, or developing parenting skills)? [...] documented as of this encounter Care Teams Home Care Companion Relationship Specialty Start Date End Date Agudea Ann MD [address] [place] [address] PCP - General Family Medicine 02/01/19 Andie Rossi MD [address] [place] [address] Neurology 03/02/19 West Doll MD [address] [place] [address] Cardiology 03/02/19 Britany Coles MD 175 [facility] 140 [place] [phone] [email or web address] ([email or web address]) Orthopedic Surgery 03/02/19 Naun Hoang MD [address] [facility] [address] [place] [address] Infectious Diseases 03/02/19 Agueda Ann MD [address] [address] [email or web address] Insurance Assigned Provider 07/02/23 04/02/24 Latosha Garcia, OT 30 [place] [address] [email or web address] Transitions Informatics EducatorMixed Crop And Livestock Farm Worker Therapy 11/05/22 11/07/22 Latosha Garcia, OT 30 [place] [address] [email or web address] Transitions Informatics EducatorMixed Crop And Livestock Farm Worker Therapy 11/24/22 11/25/22 Mely Bhatti RN 30 [place] [address] [email or web address] Informatics Educator 05/12/23 06/09/23 documented as of this encounter Additional Source Comments The information contained in this document represents components of the legal health record. It is not the complete legal health record.[facility]
--- OUTSIDE RECORDS SUMMARY | 2025-01-07 07:43 | XMS_ITS | Encounter Summary ---
Author Organization [facility] Address [address] [place] [address] Phone Care Team Providers Care Organisational Psychologist Name Role Phone Agueda Ann MD Primary Care Provider [phone] Andie Rossi MD Unavailable [phone] West Doll MD Unavailable Britany Coles MD Unavailable Naun Hoang MD Unavailable + Agueda Ann MD Unavailable Latosha Garcia OT Unavailable Latosha Garcia OT Unavailable [phone] Mely Bhatti RN Unavailable [email or web address] Encounter Details Date Type Department Care Team (Late st Contact Info) Description 11/04/2022 Procedure Pass [facility] 30 [place] [address] Social History Tobacco Use Types Packs/Day Years [...] 11/04/2022 1:06 AM Lucita Hirsch, NICOLE * [place] Suicide Severity Rating Scale (Screener/Recent Self-Report) Question [...] documented as of this encounter Care Teams Organisational Psychologist Relationship Specialty Start Date End Date Agueda Ann MD [address] [address] [email or web address] PCP - General Family Medicine 02/01/19 Andie Rossi MD [address] [place] [address] Neurology 03/02/19 West Doll MD [address] [place] [address] 104 [place] [address] Cardiology 03/02/19 Britany Coles MD [address] [place] [address] 140 [place] [phone] [email or web address] Surgery 03/02/19 Naun Hoang MD [address] [place] [address] Infectious Diseases 03/02/19 Agueda Ann MD [address] [address] [email or web address] Insurance Assigned Provider 07/02/23 04/02/24 Latosha Garcia, OT 30 [place] [address] [email or web address] Transitions Blender LaborerMeat Passer Therapy 11/05/22 11/07/22 Latosha Garcia, OT 30 [place] [address] [email or web address] Transitions Blender LaborerMeat Passer Therapy 11/24/22 11/25/22 Mely Bhatti RN 30 [place] [address] [email or web address] Blender Laborer 05/12/23 06/09/23 documented as of this encounter Additional Source Comments The information contained in this document represents components of the legal health record. It is not the complete legal health record.[facility]
--- OUTSIDE RECORDS SUMMARY | 2025-01-07 07:43 | XMS_ITS | Encounter Summary ---
Author Organization [facility] Address [address] [place] [address] Phone Care Team Providers Care Pizza Delivery Driver Name Role Phone Agueda Ann MD Primary Care Provider [phone] Andie Rossi MD Unavailable [phone] West Doll MD Unavailable [phone] Britany Coles MD Unavailable Naun Hoang MD Unavailable + Agueda Ann MD Unavailable Mely Bhatti RN Unavailable [email or web address] Encounter Details Date Type Department Care Team (Late st Contact Info) Description 12/24/2022 Procedure Pass [facility] - [facility] 30 [place] [address] Social History Tobacco Use Types Packs/Day Years [...] high school, GED, job training, learning the Hong [place]er language, technical skills, or developing parenting skills)? [...] 9:29 AM ALEKT Natalya Delgadillo RN * [place] Suicide Severity Rating Scale (Screener/Recent Self-Report) Question [...] documented as of this encounter Care Teams Pizza Delivery Driver Relationship Specialty Start Date End Date Agueda nAn MD [address] [address] [email or web address] PCP - General Family Medicine 02/01/19 Andie Rossi MD [address] [place] [address] Neurology 03/02/19 West Doll MD [address] [place] [address] 104 [place] [address] Cardiology 03/02/19 Britany Coles MD [address] [place] [address] 140 [place] [address] [email or web address] [email or web address] Surgery 03/02/19 Naun Hoang MD [address] [place] [address] Infectious Diseases 03/02/19 Agueda Ann MD [address] [address] [email or web address] Insurance Assigned Provider 07/02/23 04/02/24 Mely Bhatti, NICOLE [address] [address] [email or web address] 05/12/23 06/09/23 documented as of this encounter Additional Source Comments The information contained in this document represents components of the legal health record. It is not the complete legal health record.[facility]
--- OUTSIDE RECORDS SUMMARY | 2025-01-07 07:43 | XMS_ITS | Encounter Summary ---
Author Organization [facility] Address [address] [place] [address] Phone Care Team Providers Care Textile Supervisor Name Role Phone Agueda Ann MD Primary Care Provider [phone] Andie Rossi MD Unavailable [phone] West Doll MD Unavailable [phone] Britany Coles MD Unavailable [phone] Naun Hoang MD Unavailable + Agueda Ann MD Unavailable Mely Bhatti RN Unavailable [email or web address] Encounter Details Date Type Department Care Team (Late st Contact Info) Description 12/24/2022 Procedure Pass [facility] 30 [place] [address] Social History Tobacco Use Types Packs/Day Years [...] 12/24/2022 9:29 AM Natalya Menon, NICOLE * [place] Suicide Severity Rating Scale (Screener/Recent Self-Report) Question [...] documented as of this encounter Care Teams Textile Supervisor Relationship Specialty Start Date End Date Agueda Ann MD [address] [address] PCP - General Family Medicine 02/01/19 Andie Rossi MD [address] [place] [address] Neurology 03/02/19 West Doll MD [address] [place] [address] 104 [place] [address] Cardiology 03/02/19 Britany Coles MD [address] [place] [address] 140 [place] [phone] [email or web address] Orthopedic Surgery 03/02/19 Naun Hoang MD [address] [place] [address] Infectious Diseases 03/02/19 Agueda Ann MD [address] [address] Insurance Assigned Provider 4/6/24 1/6/25 Mely Bhatti, RN [address] [place] [address] [email or web address] 05/12/23 06/09/23 documented as of this encounter Additional Source Comments The information contained in this document represents components of the legal health record. It is not the complete legal health record.[facility]
--- OUTSIDE RECORDS SUMMARY | 2025-01-07 07:43 | XMS_ITS | Encounter Summary ---
Author Organization [facility] Address [address] [place] [address] Phone Care Team Providers Care Hand Method Lasting Machine Operator Name Role Phone Agueda Ann MD Primary Care Provider [phone] Andie Rossi MD Unavailable West Doll MD Unavailable Britany Coles MD Unavailable Naun Hoang MD Unavailable + Agueda Ann MD Unavailable Latosha Garcia OT Unavailable [phone] Latosha Garcia OT Unavailable [phone] Mely Bhatti RN Unavailable [email or web address] Encounter Details Date Type Department Care Team (Late st Contact Info) Description 10/04/2019 Ancillary Orders [facility],Outside Imaging [address] [place] [address] System, Provider Not In, PhD Partners [address] [address] Social History Tobacco Use Types Packs/Day Years [...] documented as of this encounter Care Teams Hand Method Lasting Machine Operator Relationship Specialty Start Date End Date Agueda Ann MD [address] [address] PCP - General Family Medicine 02/01/19 Andei Rossi MD [address] [place] [address] Neurology 03/02/19 West Doll MD [address] [place] [address] 104 [place] [address] Cardiology 03/02/19 Britany Coles MD [address] [place] [address] 140 [place] [phone] [email or web address] [email or web address] Surgery 03/02/19 [place] [address] [place] [address] Infectious Diseases 03/02/19 Agueda Ann MD [address] [address] [email or web address] Insurance Assigned Provider 07/02/23 04/02/24 Latosha Garcia, OT 30 [place] [address] [email or web address] Transitions Security Control Room OfficerPocket Setter Lockstitch Therapy 11/05/22 11/07/22 Latosha Garcia, OT [address] [place] [address] [email or web address] Transitions Security Control Room OfficerPocket Setter Lockstitch Therapy 11/24/22 11/25/22 Mely Bhatti, NICOLE 30 [place] [address] [email or web address] [email or web address] Control Room Officer 05/12/23 06/09/23 documented as of this encounter Additional Source Comments The information contained in this document represents components of the legal health record. It is not the complete legal health record.[facility]
--- OUTSIDE RECORDS SUMMARY | 2025-01-07 07:43 | XMS_ITS | Encounter Summary ---
Author Organization [facility] Address [address] [place] [address] Phone Care Team Providers Care Television And Radio Repairer Name Role Phone Agueda Ann MD Primary Care Provider [phone] Andie Rossi MD Unavailable [phone] West Doll MD Unavailable [phone] Britany Coles MD Unavailable [phone] Naun Hoang MD Unavailable + Agueda Ann MD Unavailable Mely Bhatti RN Unavailable [email or web address] Encounter Details Date Type Department Care Team (Late st Contact Info) Description 12/24/2022 Procedure Pass [facility], [facility] 30 [place] [address] Social History Tobacco Use Types Packs/Day Years [...] high school, GED, job training, learning the Bengali language, technical skills, or developing parenting skills)? [...] 12/24/2022 9:29 AM Natalya Menon, NICOLE * [place] Suicide Severity Rating Scale (Screener/Recent Self-Report) Question [...] documented as of this encounter Care Teams Television And Radio Repairer Relationship Specialty Start Date End Date Agueda Ann MD [address] [address] [email or web address] PCP - General Family Medicine 02/01/19 Andie Rossi MD [address] [place] [address] Neurology 03/02/19 West Doll MD [address] [place] [address] 104 [place] [address] Cardiology 03/02/19 Britany Coles MD [address] [place] [address] 140 [place] [address] [email or web address] Orthopedic Surgery 03/02/19 Naun Hoang MD [address] [place] [address] Infectious Diseases 03/02/19 Agueda Ann MD [address] [address] [email or web address] Insurance Assigned Provider 4/6/24 1/6/25 Mely Bhatti, RN [address] [place] [address] [email or web address] 05/12/23 06/09/23 documented as of this encounter Additional Source Comments The information contained in this document represents components of the legal health record. It is not the complete legal health record.[facility]
--- OUTSIDE RECORDS SUMMARY | 2025-01-07 07:43 | XMS_ITS | Encounter Summary ---
Author Organization [employer] Address [address] [place] [address] Care Team Providers Care Lunchroom Supervisor Name Role Phone Unavailable Primary Care Provider Unavailabl e Reason for Visit * Reason Onset Date Comments medical clearance 05/27/2022 Encounter Details Date Type Department Care Team (Late st Contact Info) Description 05/27/2022 Telephone [facility] [address] [place] [address] Davonte Cunningham DDS medical clearance Social History [...] was for medical clearance. Pls re send [phone] * Telephone Encounter - Lucina Leigh - [...] was for medical clearance. Pls re send [phone] documented in this encounter Plan of Treatment Not on file documented as of this encounter Visit Diagnoses Not on filedocumented in this encounter
--- OUTSIDE RECORDS SUMMARY | 2025-01-07 07:43 | XMS_ITS | Encounter Summary ---
Author Organization [facility] Address [address] [place] [address] Phone Care Team Providers Care Music Department Chair Name Role Phone Agueda Ann MD Primary Care Provider [phone] Andie Rossi MD Unavailable West Doll MD Unavailable [phone] Britany Coles MD Unavailable Naun Hoang MD Unavailable + Agueda Ann MD Unavailable Mely Bhatti RN Unavailable [email or web address] Encounter Details Date Type Department Care Team (Late st Contact Info) Description 12/24/2022 Procedure Pass [facility], [facility] 30 [place] [address] Social History Tobacco Use Types Packs/Day Years [...] high school, GED, job training, learning the Kyrgyz language, technical skills, or developing parenting skills)? [...] 12/24/2022 9:29 AM Natalya Menon, NICOLE * [place] Suicide Severity Rating Scale (Screener/Recent Self-Report) Question [...] documented as of this encounter Care Teams Music Department Chair Relationship Specialty Start Date End Date Agueda Ann MD [address] [address] [email or web address] PCP - General Family Medicine 02/01/19 Andie Rossi MD [address] [place] [address] Neurology 03/02/19 West Doll MD [address] [place] [address] 104 [place] [address] Cardiology 03/02/19 Britany Coles MD [address] [place] [address] 140 [place] [address] [email or web address] Orthopedic Surgery 03/02/19 Naun Hoang MD [address] [place] [address] Infectious Diseases 03/02/19 Agueda Ann MD [address] [address] [email or web address] Insurance Assigned Provider 4/6/24 1/6/25 Mely Bhatti, RN [address] [place] [address] [email or web address] 05/12/23 06/09/23 documented as of this encounter Additional Source Comments The information contained in this document represents components of the legal health record. It is not the complete legal health record.[facility]
--- OUTSIDE RECORDS SUMMARY | 2025-01-07 07:43 | XMS_ITS | Encounter Summary ---
Author Organization [facility] Address [address] [place] [address] Phone Care Team Providers Care Data Management Manager Name Role Phone Agueda Ann MD Primary Care Provider [phone] Andie Rossi MD Unavailable [phone] West Doll MD Unavailable Britany Coles MD Unavailable Naun Hoang MD Unavailable + Agueda Ann MD Unavailable Mely Bhatti RN Unavailable [email or web address] Encounter Details Date Type Department Care Team (Late st Contact Info) Description 12/24/2022 Procedure Pass [facility], [facility] 30 [place] [address] Social History Tobacco Use Types Packs/Day Years [...] high school, GED, job training, learning the Sierra Leonean language, technical skills, or developing parenting skills)? [...] 9:29 AM ALEKT Natalya Delgadillo RN * [place] Suicide Severity Rating Scale (Screener/Recent Self-Report) Question [...] documented as of this encounter Care Teams Data Management Manager Relationship Specialty Start Date End Date Agueda Ann MD [address] [address] [email or web address] PCP - General Family Medicine 02/01/19 Andie Rossi MD [address] [place] [address] Neurology 03/02/19 West Doll MD [address] [place] [address] 104 [place] [address] Cardiology 03/02/19 Britany Coles MD [address] [place] [address] 140 [place] [phone] [email or web address] Orthopedic Surgery 03/02/19 Naun Hoang MD [address] [place] [address] Infectious Diseases 03/02/19 Agueda Ann MD [address] [address] [email or web address] Insurance Assigned Provider 07/02/23 04/02/24 Mely Bhatti, NICOLE [address] [address] [email or web address] 05/12/23 06/09/23 documented as of this encounter Additional Source Comments The information contained in this document represents components of the legal health record. It is not the complete legal health record.[facility]
--- OUTSIDE RECORDS SUMMARY | 2025-01-07 07:43 | XMS_ITS | Encounter Summary ---
Author Organization [facility] Address [address] [place] [address] Phone Care Team Providers Care Palletiser Operator Name Role Phone Agueda Ann MD Primary Care Provider [phone] Andie Rossi MD Unavailable West Doll MD Unavailable Britany Coles MD Unavailable Naun Hoang MD Unavailable + Agueda Ann MD Unavailable Mely Bhatti RN Unavailable [email or web address] Encounter Details Date Type Department Care Team (Late st Contact Info) Description 12/24/2022 Procedure Pass [facility], [facility] 30 [place] [address] Social History Tobacco Use Types Packs/Day Years [...] 12/24/2022 9:29 AM Natalya Menon, NICOLE * [place] Suicide Severity Rating Scale (Screener/Recent Self-Report) Question Answer Date of Assessment Author 1. Wish to be (Past 1 Month) No 09/29/2 023 9:29 AM EDT Ntaalya Delgadillo RN 2. Non-Specific Active Suici minerva [...] documented as of this encounter Care Teams Palletiser Operator Relationship Specialty Start Date End Date Agueda Ann MD [address] [address] [email or web address] PCP - General Family Medicine 02/01/19 Andie Rossi MD [address] [place] [address] Neurology 03/02/19 West Doll MD [address] [place] [address] 104 [place] [address] Cardiology 03/02/19 Britany Coles MD [address] [place] [address] 140 [place] [phone] [email or web address] [email or web address] Surgery 03/02/19 Naun Hoang MD [address] [place] [address] Infectious Diseases 03/02/19 Agueda Ann MD [address] [address] [email or web address] Insurance Assigned Provider 4/6/24 1/6/25 Mely Bhatti, RN [address] [place] [address] [email or web address] 05/12/23 06/09/23 documented as of this encounter Additional Source Comments The information contained in this document represents components of the legal health record. It is not the complete legal health record.[facility]
--- OUTSIDE RECORDS SUMMARY | 2025-01-07 07:43 | XMS_ITS | Encounter Summary ---
Author Organization [facility] Address [address] [place] [address] Phone Care Team Providers Care Shirt Bander Name Role Phone Agueda Ann MD Primary Care Provider [phone] Andie Rossi MD Unavailable [phone] West Doll MD Unavailable [phone] Britany Coles MD Unavailable Naun Hoang MD Unavailable + Agueda Ann MD Unavailable Latosha Garcia OT Unavailable [phone] Mely Bhatti RN Unavailable [email or web address] Encounter Details Date Type Department Care Team (Late st Contact Info) Description 11/18/2022 Procedure Pass [facility] 30 [place] [address] Social History Tobacco Use Types Packs/Day Years [...] high school, GED, job training, learning the Moroccan language, technical skills, or developing parenting skills)? [...] documented as of this encounter Care Teams Shirt Bander Relationship Specialty Start Date End Date Agueda Ann MD [address] [place] [address] PCP - General Family Medicine 02/01/19 Andie Rossi MD 48 [place] [address] Neurology 03/02/19 West Doll MD [address] [place] [address] 104 [place] [address] Cardiology 03/02/19 Britany Coles MD 175 [facility] 140 [place] [address] [email or web address] [email or web address] Surgery 03/02/19 [place] [address] [place] [address] Infectious Diseases 03/02/19 Agueda Ann MD [address] [address] [email or web address] Insurance Assigned Provider 07/02/23 04/02/24 Latosha Garcia, OT 30 [place] [address] [email or web address] Transitions [employer] Wafers MarkerCrime Scene Investigator Therapy 11/24/22 11/25/22 Mely Bhatti, NICOLE 30 [place] [address] [email or web address] [employer]iconductor Wafers Marker 05/12/23 06/09/23 documented as of this encounter Additional Source Comments The information contained in this document represents components of the legal health record. It is not the complete legal health record.[facility]
--- OUTSIDE RECORDS SUMMARY | 2025-01-07 07:43 | XMS_ITS | Clinical Summary ---
Author Organization [facility] Address [address] [place] [address] Phone Care Team Providers Care White Kid Buffer Name Role Phone Agueda Ann MD Primary Care Provider [phone] Andie Rossi MD Unavailable [phone] West Doll MD Unavailable [phone] Britany Coles MD Unavailable Naun Hoang MD [...] mouth daily. 4 Active neomycin/bacitra negrito/polymyxinB (NEOSPORIN, [id number]-[id number], TP) Apply 1 Application topically 2 (two) [...] 20 MG tabletIndication s:Coronary artery disease involving table mountain heart without angina pectoris, unspecified vessel or [...] an echo, and follow-up with her own lard tub washer who is at [facility]. Acquired hypothyroidism 09/04/2020 Assessment & Plan (12/26/2022 [...] like to little and she is established [facility] weight management so I like her to see the paint booth operator there she understands and agrees this plan Assessment & Plan (05/17/2019 12:35 PM EST): She is working out, tracking her caloric intake and sticking to nutrition plan although she is under eating. No clear etiology for her weight gain. Start taking levothyroxine separately from the other medications. Check labs today. Make follow-up with paint booth operator CAD (coronary artery disease) 03/02/2019 Overview (03/02/2019): h/o stent Assessment & Plan (12/26/2022 3:02 PM EDT): No active cp or acute concern -Continue monitor and storage bin tender -Continue aspirin, atorvastatin, Plavix, and Zetia Is [...] and chronic pain. Certainly would benefit from POST ACUTE CARE REGISTERED NURSE services and I have discussed with pt [...] pt can establish with someone new at [facility]. Assessment & Plan (01/21/2021 12:34 PM EDT): [...] and gait. She will be going to [facility] physical medicine and rehabilitation in [place] for this. IgG monoclonal gammopathy Assessment & Plan (03/02/2019 12:15 PM EST): Patient denies ever seeing hematology, has never heard this diagnosis and does not think that she has this. As I do not have records it is difficult for me to understand where this came from. I would like to review her [facility] records and if necessary we will do [...] appt for Neuro muscular in Dec at [facility]). No further pain. F/u as needed Assessment [...] this topic Medical Devices Implanted Type Area Cleaner And Trimmer Device Identifier Shelf Expiration Date Model / Serial / Lot Stent Supera 6fr 5.5mm 120mm 120cm .014in Otw Vascular Peripheral Nitinol Self Expanding Closed End Braided - [id number] Implanted:Qty: 1 on 11/18/2022 by David Mendez MD at [facility] Stent [id number] 04/27/2024 [id number] / / [id number] Cardiac Stent Neck Hardware Procedures Procedure Name [...] EST) SODIUM 137 133 - 146 mmol/L [facility] CHLORIDE 101 96 - 108 mmol/L [facility] POTASSIUM 4.1 3.3 - 5.1 mmol/L [facility] CO2 24 21 - 35 mmol/L [facility] BUN 27(H) 6 - 19 mg/dL [facility] CREATININE 0.50 0.5 - 1.5 mg/dL [facility] GLUCOSE 103(H) 70 - 99 mg/dL [facility] CALCIUM 9.0 8.4 - 10.3 mg/dL [facility] EGFR 103 >59 mL/min/1.7 3m2 [facility] Comment:Estimated glomerular filtration rate calculated using the CKD-EPI refit equation. ANION GAP 16 10 - 20 mmol/L [facility] Blood 05/23/2023 4:12 PM EST 05/23/2023 4:32 PM EST Mely Padron PA-C LAB BLOOD ORDERABLES Final R esult [address] [address] * (ABNORMAL) TSH with reflex (01/13/2023 7:58 AM EDT) TSH 0.03(L) 0.27 - 4.20 uIU/mL [facility] Blood 01/13/2023 7:58 AM EDT 01/13/2023 8:03 AM EDT Agueda Ann MD LAB BLOOD ORDERABLES Final Resul t Performing Organization Address City/[facility]/ZIP Co de Phone Number [address] [address] * (ABNORMAL) Lipid panel (12/25/2022 5:22 AM EDT) HDL 46 mg/dL [facility] Comment: Interpretation <40 mg/dL: Low HDL cholesterol (major risk factor for CHD) Greater than or equal to 60 mg/dL: High HDL cholesterol ( negative risk factor for CHD) HDL - cholesterol is affected by a number of factors, e.g. smoking, excerise, hormones, sex and age. CHOLESTEROL 98 0 - 240 mg/dL [facility] TRIGLYCERIDES 86 30 - 160 mg/dL [facility] LDL 35(L) 50 - 129 mg/dL [facility] Comment: LDL levels in terms of risk for coronary heart disease: <100 mg/dL: Optimal 100-129 mg/dL: Near or above optimal 130-159 mg/dL: Borderline high 160-189 mg/dL: High >190 mg/dL: Very High CARDIAC RISK RATIO 2.1(L) 3.3 - 4.4 C [facility] Blood 12/25/2022 5:22 AM EDT 12/25/2022 6:22 AM EDT us Kayley Ribera NP LAB BLOOD ORDERABLES Fi nal Result [address] [address] * MAMMOGRAPHY FOR RESULT ENTRY ONLY (07/07/2022) us Agueda Ann MD HEALTH MAINTENANCE Edited Result - Final from Last 3 Months or Most Recently Relevant to Health Maintenance Insurance [place]ICARE PART [place] [facility] [place] [facility] [place] & [facility] [place]IC[facility] [place] B [facility] Advance Directives For more information, please contact: [phone] (9AM - 5PM [facility], Tuesday-Tuesday) Documents on File Type Date Recorded Patient Child Life Therapist Expl anation Healthcare Proxy 11/08/2022 6:36 PM [...] Code Status Confirmed With: Patient Care Teams White Kid Buffer Relationship Specialty Start Date End Date Agueda Ann MD [address] [place] [address] PCP - General Family Medicine 02/01/19 Andie Rossi MD 48 [place] [address] Neurology 03/02/19 West Doll MD [address] [place] [address] 104 [place] [address] Cardiology 03/02/19 Britany Coles MD [address] [place] [address] 140 [place] [address] [email or web address] Orthopedic Surgery 03/02/19 Naun Hoang MD [address] [address] Infectious Diseases 03/02/19 Additional Source Comments The information contained in this document represents components of the legal health record. It is not the complete legal health record.[facility]
== END 2025-01-07 07:38 | disposition home or self-care (01) ==
LOC: HO.MMNH3L 07:37
PROVIDERS: Visit Provider Student in an Organized Health Care Education/Training Program
DX: I25.9 Chronic ischemic heart disease, unspecified (principal); E03.9 Hypothyroidism, unspecified; I69.398 Other sequelae of cerebral infarction; Z89.611 Acquired absence of right leg above knee
CPT/HCPCS: 36415; 80048; 85025

== ENCOUNTER 2025-01-14 05:43 | Outpatient (REF) | payer MEDICARE, MEDICAID, SELFPAY ==
[2025-01-14 05:41] LABS: MANUAL DIFF FLAG NO
--- OUTSIDE RECORDS SUMMARY | 2025-01-14 05:47 | XMS_ITS | Data Portability ---
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 Name Role Phone VINI DOWLING 1ST FLOOR OTHER BEBE GUTIERREZ Primary Care Provider [phone] Assessment Encounter Date Assessment Date Assessment LastModified [...] Address Organization Details Recorded Time Diabetes mellitus 07785111 Active 2023 MIRI NORTON [address] [facility], [address], [place], [address], [facility] 4 20:18:04 Essential hypertensio n 07386715 Active 2023 MIRI NORTON [address] [facility], [address], [place], [address], [email or web address] 4 20:18:10 Hyperlipide reinier 93974271 Active 2023 MIRI NORTON [address] [place] [address], [address], [place], [address], [email or web address] 4 20:18:16 Femoral-pop liteal artery bypass graft Completed 202309/01/2023 MIRI NORTON [address] [place] [address], [address], [place], [address], [email or web address] 4 22:16:23 Anemia 287703587 Active 2023 MIRI NORTNO [address] [place] [address], [address], [place], [address], [facility] 4 20:20:45 Cerebrovasc ular accident 548394772 Active 2023 MIRI NORTON [address] [place] [address], [address], [place], [address], [facility] 4 20:21:06 Femoro-ante rior tibial bypass graft Completed 202309/01/2023 MIRI NORTON [address] [place] [address], [address], [place], [address], [facility] 4 22:16:23 Chronic kidney disease stage 3 188351885 Active 2023 MIRI NORTON [address] [place] [address], [address], [place], [address], [facility] 4 20:28:49 Peripheral vascular disease 057315445 Active 2023 MIRI NORTON [address] [place] [address], [address], [place], [address], [place] [facility] 20:29:56 Asthenia 40283432 Active 2023 PÉREZ LUNDBERG, MIRI [address], [address], [place], [address], [facility] 20:30:45 Insomnia 807564039 Active 2023 PÉREZ LUNDBERG, MIRI [address], [address], [place], [address], [facility] 4 21:49:49 Constipatio n 44988994 Active 2023 MIRI NORTON [address], [address], [place], [address], [facility] 4 21:52:14 Acute kidney injury 07940125 Active 2023 MIRI NORTON [address], [address], [place], [address], [facility] 4 21:56:55 Hypocalcemi a 6905774 Completed 202309/01/2023 [address]IRI NORTON [address], [address], [place], [address], [facility] 4 22:16:23 Myasthenia gravis 64544702 Active 2023 MIRI NORTON [address], [address], [place], [address], [facility] 4 22:10:42 Aphasia 14037846 Completed 202309/01/2023 MIRI NORTON [address], [address], [place], [address], [email or web address] 4 22:16:23 Vascular dementia 266298126 Active 2023 MIRI NORTON [address], [address], [place], [address], [facility] 4 13:06:33 Amputated below knee 623390063 Active 2023 [address]IRI NORTON [address], [address], [place], [address], [facility] 4 16:38:11 Delirium 0726125 Active 2023 [address]IRI NORTON [address], [address], [place], [address], [facility] 4 16:54:43 Dysphagia 78351207 Active [address]P [address], [address], [place], [address], [facility] 4 16:55:09 Toxic encephalopa thy 20329333 Active 2023 JOHN NORTONP [address] [facility], [address], [place], [address], [facility] 4 16:55:43 Hypothyroid ism 83554923 Active 2023 JOHN NORTONP [address] [facility], [address], [place], [address], [facility] 4 22:18:37 Anxiety 12645836 Active 2023 PÉREZ LUNDBERG [facility] [address] [facility], [address], [place], [address], [facility] 4 22:24:04 Carotid artery stenosis 13137143 Active 2023 MIRI NORTON [address] [facility], [address], [place], [address], [facility] 4 12:10:00 Problem Notes None recorded. [...] 97 % 118/68 mm[Hg] MIRI NORTON [address] [facility], [address], [place], [address], [facility] 4 14:16:49 Date Recorded Body height Heart rate Respiratory rate Body temperature Oxygen saturation Oxygen saturation in Arterial blood by Pulse oximetry Systolic And Diastolic Provider Name and Address Organization Details Last Updated DateTime 4 165.1 cm 73 /min 18 /min 98 [degF] 94 % 94 % 111/76 mm[Hg] MIRI NORTON [address] [facility], [facility] [address], [place], [address], [facility] 4 11:35:13 Date Recorded Body height Respiratory rate Body temperature Oxygen saturation Oxygen saturation in Arterial blood by Pulse oximetry Heart rate Systolic And Diastolic Provider Name and Address Organization Details Last Updated DateTime 4 165.1 cm 18 /min 98 [degF] 94 % 94 % 68 /min 118/71 mm[Hg] MIRI NORTON [address] [facility], [address], [place], [address], [facility] 4 16:01:39 Date Recorded Body height Body mass index (BMI) Body weight Heart rate Respiratory rate Body temperature Oxygen saturation Oxygen saturation in Arterial blood by Pulse oximetry Systolic And Diastolic Provider Name and Address Organization Details Last Updated DateTime 4 165.1 cm 28.6 kg/m2 39978.8 9 g 73 /min 16 /min 98.4 [degF] 100 % 100 % 135/68 mm[Hg] MIRI NORTON [address] [facility], [address], [place], [address], [facility] 4 15:14:16 Social History Question Answer Notes LastModified by Organizat ion Details LastModified Time Tobacco Smoking Status Never Smoker MIRI NORTON [address] [facility], [address], [place], [address], [facility] 06/30/2023 02:31:25 Do You Have An Advance [...] Do You Have A Medical Power Of Bunghole Borer? Yes Information not available 07/22/2023 What Was [...] Time Tdap 9 completed Elle [facility] null, [facility] 07/01/2023 13:25:18 Tdap 8 completed Elle [facility] null, [facility] 07/01/2023 13:25:33 Pneumococcal conjugate PCV20, polysaccharide [id number] conjugate, adjuvant, PF 2 completed Elle South [facility], [facility] 07/01/2023 13:25:55 pneumococcal polysaccharide PPV23 4 completed Elle [facility] null, [facility] 07/01/2023 13:26:09 pneumococcal polysaccharide PPV23 [address] [facility] 07/01/2023 13:26:18 influenza, unspecified formulation [address] [facility] 07/01/2023 13:26:47 influenza, unspecified formulation 3 completed Elle Brannon [facility], [facility] 07/01/2023 13:26:55 SARS-COV-2 (COVID-19) vaccine, UNSPECIFIED [address] [facility] 07/01/2023 13:27:17 SARS-COV-2 (COVID-19) vaccine, UNSPECIFIED [address] [facility] 07/01/2023 13:27:40 SARS-COV-2 (COVID-19) vaccine, UNSPECIFIED 1 completed Elle Brannon [facility], [facility] 07/01/2023 13:27:55 SARS-COV-2 (COVID-19) vaccine, UNSPECIFIED 2 completed [facility] 07/01/2023 13:28:04 SARS-COV-2 (COVID-19) vaccine, UNSPECIFIED 2 completed [facility] 07/01/2023 13:28:24 SARS-COV-2 (COVID-19) vaccine, UNSPECIFIED [address] [facility] 07/01/2023 13:28:37 zoster, unspecified formulation [address] [facility] 07/01/2023 13:29:06 zoster, unspecified formulation [address] [facility] 07/01/2023 13:29:21 Past Encounters Encounter ID Performer Location Encounter Start Date Encounter Closed Date Diagnosis/Indication Diagnosis SNOMED-CT Code Diagnosis ICD10 Code Diagnosis IMO Codes Diagnosis Note [id number] MIRI NORTON [address] [facility] [address] [place] [address] 06/29/2023 15:34:40 07/22/2023 14:35:38 Peripheral vascular disease 237484282 I73.9 s/p right femoral endarterec bridget with [...] rightfollo w up with vascular 06/29 Asthenia 68747970 R53.1 hx of myasthenia gravisPT/O T eval and treat Diabetes mellitus 916786 09 E11.9 A1c 5.7 on 06/23hospit al records indicate that she states she is taking for constipati on, she is not sure she is a diabetic.c ontinue metformin 500 mg BIDcontinu e to monitor FSfollow-u p with PCP after discharge for further management Essential hypertension 95621705 I10 continue lisinopril 5 mg dailyconti nue metoprolol 50 mg bidfurosem oxana 40 mg dailymonit or BP /labs Hyperlipidemia 13321942 E78.5 atorvastat in 40 mg dailymonit or lipids prn Insomnia 867649330 G47.0 0 continue melatonin 9 mg hscontinue trazadone 12.5 mg hs prn Constipation 21076153 K5 9.00 continue colace 100 mg bidcontinu e miralax 17 gm dailyincre ase oral hydration Anemia 413509433 D64.9 continue ferrous sulfate 325 mg dailymonit or CBCH&H stable at 7.9/25.1 Hypocalcemia 0573606 E83 .51 continue calcium carbonate 500 mg dailyconti nue cholecalci ferol 1000 u daily Myasthenia gravis 497958 04 G70.00 carrying dxmaintain safety/pre cautionsno t on medication Cerebrovas cular accident 182684512 I63.9 carrying dx Chronic ki dney disease stage 3 996603237 N18.30 mahi resolved in acute careavoid nephrotoxi c medication smonitor labs [id number] [facility] [address] [place] [address] 06/30/2023 11:39:21 07/04/2023 14:42:16 Bleeding from nose 969597653 R04.0 uncontroll ed bleeding from right narespt is on multiple anticoag( asa, eliquis and plavix) held this morning.wi ll send to ED for eval and tx. [id number] MIRI NORTON [address] [place] [address] 07/12/2023 11:03:46 07/19/2023 11:10:58 Open wound of right foot 2158859272 4098048 S91.301A dorsal right foot with wound vacDo Not remove wound vac, she has appt with vascular on 07/13 Surgical i ncision wound of skin 1711100312 00 R23.8 right lateral mid thigh with 22 nehemias right low leg corral 12 staple right lower extremity medial thigh wound with packing Peripheral vascular disease 403953567 I73.9 s/p right femoral endarterec bridget with [...] rightfollo w up with vascular 06/29 Asthenia 32098101 R53.1 hx of myasthenia gravisPT/O T eval and treat Diabetes mellitus 061151 09 E11.9 A1c 5.7 on 06/23hospit al records indicate that she states she is taking for constipati on, she is not sure she is a diabetic.c ontinue metformin 500 mg BIDcontinu e to monitor FSfollow-u p with PCP after discharge for further management Essential hypertension 18613914 I10 continue lisinopril 5 mg dailyconti nue metoprolol 50 mg bidfurosem oxana 40 mg dailymonit or BP /labs Hyperlipidemia 75554471 E78.5 atorvastat in 40 mg dailymonit or lipids prn Insomnia 788092124 G47.0 0 continue melatonin 9 mg hscontinue trazadone 12.5 mg hs prn Constipation 72372614 K5 9.00 continue colace 100 mg bidcontinu e miralax 17 gm dailyincre ase oral hydration Anemia 926983458 D64.9 baseline 7.9-8decre ased to 7.0 due to epistaxiss he was transfused 2 PRBCsconti nue ferrous sulfate 325 mg dailymonit or CBC Hypocalcemia 9449534 E83 .51 continue calcium carbonate 500 mg dailyconti nue cholecalci ferol 1000 u daily Myasthenia gravis 817722 04 G70.00 carrying dxmaintain safety/pre cautionsno t on medication Cerebrovas cular accident 387528435 I63.9 carrying dx Chronic ki dney disease stage 3 280475799 N18.30 mahi resolved in acute careavoid nephrotoxi c medication smonitor labs Aphasia 71326357 R47.01 hx of CVAIntermi ttent aphasia/Wo rd finding difficulty no new stroke seen on brain MRI.Suspec t vascular dementia, may have some hypoperfus ion given her anemia. [id number] MIRI NORTON [address] [place] [address] rd [place] [address] 07/18/2023 10:15:58 07/22/2023 15:25:22 Open wound of right foot 1624377961 0403597 S91.301A s/p wound debridemen t 07/13, will be returning to vascular 07/19 for integra placement and wound vac Surgical i ncision wound of skin 2745433246 00 R23.8 right lateral mid thigh with 22 staplesrig ht low leg corral 12 staplerigh t lower extremity medial thigh wound with packingnur sing to removed on 07/18 ord placed in [facility] Peripheral vascular disease 449427403 I73.9 s/p right femoral endarterec bridget with [...] 6 prncontinu e lidocaine patch right Asthenia 20790896 R53.1 hx of myasthenia gravisPT/O T eval and treat Diabetes mellitus 664818 09 E11.9 A1c 5.7 on 06/23hospit al records indicate that she states she is taking for constipati on, she is not sure she is a diabetic.c ontinue metformin 500 mg BIDcontinu e to monitor FSfollow-u p with PCP after discharge for further management Essential hypertension 76904887 I10 continue lisinopril 5 mg dailyconti nue metoprolol 50 mg bidfurosem oxana 40 mg dailymonit or BP /labs Constipation 41987689 K5 9.00 continue colace 100 mg bidcontinu e miralax 17 gm dailyincre ase oral hydration Anemia 751673086 D64.9 baseline 7.9-8decre ased to 7.0 due to epistaxiss he was transfused 2 PRBCsconti nue ferrous sulfate 325 mg dailymonit or CBC Aphasia 13585730 R47.01 hx of CVAIntermi ttent aphasia/Wo rd finding difficulty no new stroke seen on brain MRI.Suspec t vascular dementia, may have some hypoperfus ion given her anemia. [id number] Afia Tierney MD [address] [place] [address] 07/22/2023 14:24:36 08/15/2023 12:08:31 Open wound of right foot 3953518026 2785749 S91.301A Continue wound care as ordered.F/ U with surgeon as planned for further debridemen t and wound vac placement. Surgical i ncision wound of skin 0589681923 00 R23.8 Wounds healing well.Stale s removed. Peripheral vascular disease 787785408 I73.9 s/p right femoral endarterec bridget with [...] mg q 6 hrs prnMonitor sxs. Asthenia 67756379 R53.1 As above. Diabetes mellitus 384538 09 E11.9 HgA1C was 5.7 on 06/23All sugars <200 since here, so fingerstic ks d/c'd on 07/18Contin ue metformin 500 mg BIDMonitor fingerstic ks prn. Essential hypertension 16695781 I10 BP in good control on lisinopril 5 mg qd, metoprolol 50 mg BID, and furosemide 40 mg qdMonitor BP and labs. Constipation 13082107 K5 9.09 Continue bowel meds as ordered.Mo nitor bowel function. Anemia 081580053 D64.89 Multifacto rial.Galindo nue ferrous sulfate 325 mg qdMonitor CBC Aphasia 39646212 R47.01 As above. Hyperlipidemia 24479562 E78.49 Continue atorvastat in 40 mg qdMonitor lipids yearly Insomnia 882772643 G47.0 0 Continue melatonin 9 mg qhs and trazadone 12.5 mg qhs prnMonitor sleep patterns. Hypocalcemia 0063344 E83 .51 Doesn't have hypocalcem ia.Correct ed Ca+ os 9.08Likely is on Ca+ and vit D for osteopenia .Continue calcium carbonate 500 mg qd and cholecalci ferol 1000 IU qd. Myasthenia gravis 432958 04 G70.00 Carrying dxOn no meds at this time.Very deconditio kelsy.Needs PT/OT for strengthen ing, balance, gait training, safety and function.C ontinue fall precaution s.Monitor for safety. Cerebrovas cular accident 606772574 I63.89 With mod to severe aphasia.SL P eval and tx.Continu e meds as above.Prakash emory for new neuro sxs. Chronic ki dney disease stage 3 032753178 N18.32 At baseline.C ontinue to avoid nephrotoxi c meds as able.Monit or labs.Renal consult prn. Anxiety 46024167 F41.1 Very anxious tonight. Anxiety makes it even harder for her to get her words out.Will start lorazepam 0.5 mg q 6 hrs prn [id number] MIRI NORTON [address] [place] [address] [place] [address] 07/25/2023 12:45:25 07/26/2023 15:42:48 Open wound of right foot 4217030857 1515583 S91.301A 07/19: s/p wound debridemen tcontinue wound treatment as ordered.fo llow up with [facility] on 08/01 at 130 pm Surgical i ncision wound of skin 3826992389 00 R23.8 right lateral mid thigh - HEALING NEHEMIAS REMOVED IN ACUTE CAREright low leg corral healingrig ht lower extremity medial thigh wound with packing Peripheral vascular disease 483809124 I73.9 s/p right femoral endarterec bridget with [...] 6 prncontinu e lidocaine patch right Asthenia 13629266 R53.1 hx of myasthenia gravisPT/O T eval and treat Diabetes mellitus 982574 09 E11.9 continue metformin 500 mg BIDcontinu e to monitor FSfollow-u p with PCP after discharge for further management Essential hypertension 82303916 I10 continue lisinopril 5 mg dailyconti nue metoprolol 50 mg bidfurosem oxana 40 mg dailymonit or BP /labs Constipation 57835388 K5 9.00 continue colace 100 mg bidschedul ed miralax 17 gm daily and senna 8.6 mg daily.incr ease oral hydration Anemia 539764292 D64.9 see hpitoday 6.7 -will recheck on 07/25contin ue ferrous sulfate 325 mg dailycolor is normal, there is no SOB, extremitie s are warm.monit or CBC [id number] MIRI NORTON [address] [place] [address] [place] [address] 07/29/2023 09:49:56 08/02/2023 10:28:17 Open wound of right foot 4370402355 6267005 S91.301A 07/19: s/p wound debridemen tcontinue wound treatment as ordered.fo llow up with [facility] on 08/01 at 130 pm Peripheral vascular disease 810677684 I73.9 s/p right femoral endarterec bridget with [...] prncontinu e lidocaine patch right Diabetes mellitus 622029 09 E11.9 continue metformin 500 mg BIDcontinu e to monitor FSfollow-u p with PCP after discharge for further management Essential hypertension 67132199 I10 continue lisinopril 5 mg dailyconti nue metoprolol 50 mg bidfurosem oxana 40 mg dailymonit or BP /labs Anemia 250706610 D64.9 see hpicontinu e ferrous sulfate 325 mg dailycolor is normal, there is no SOB, extremitie s are warm.monit or CBC [id number] MIRI NORTON [facility] [address] [facility] [place] [address] 08/05/2023 09:45:20 08/09/2023 11:18:14 Open wound of right foot 5166454235 8776810 S91.301A 07/19: s/p wound debridemen tcontinue wound treatment as ordered.fo llow up with [facility] on 08/02 with new wound care orders-[facility] care for R foot: Apply saline moistened Promogran over Puraply three times weekly. Peripheral vascular disease 564968664 I73.9 s/p right femoral endarterec bridget with [...] prncontinu e lidocaine patch right Diabetes mellitus 850812 09 E11.9 continue metformin 500 mg BIDcontinu e to monitor FSfollow-u p with PCP after discharge for further management Essential hypertension 67477762 I10 continue lisinopril 5 mg dailyconti nue metoprolol 50 mg bidfurosem oxana 40 mg dailymonit or BP /labs Anemia 364694512 D64.9 see hpicontinu e ferrous sulfate 325 mg dailycolor is normal, there is no SOB, extremitie s are warm.monit or CBC [id number] [facility] [address] [facility] [place] [address] 08/09/2023 08:23:37 08/12/2023 11:43:31 Open wound of right foot 6469300796 4424355 S91.301A 07/19: s/p wound debridemen tcontinue wound treatment as ordered.fo llow up with [facility] on 08/02 with new wound care orders-[facility] care for R foot: Apply saline moistened Promogran over Puraply three times weekly.[facility]. Peripheral vascular disease 572756861 I73.9 s/p right femoral endarterec bridget with [...] prncontinu e lidocaine patch right Diabetes mellitus 079588 09 E11.9 continue metformin 500 mg BIDcontinu e to monitor FS Essential hypertension 43436273 I10 continue lisinopril 5 mg dailyconti nue metoprolol 50 mg bidfurosem oxana 40 mg dailymonit or BP /labs Anemia 593739144 D64.9 H/H has been stable.con tinue ferrous sulfate 325 mg dailycolor is normal, there is no SOB, extremitie s are warm.monit or CBC [id number] MIRI NORTON [address] [place] [address] 08/15/2023 13:44:19 08/18/2023 13:20:18 Open wound of right foot 7874968540 9015932 S91.301A 07/19: s/p wound debridemen tcontinue wound treatment as ordered.fo llow up with [facility] on 08/02 with new wound care orders-[facility] care for R foot: Apply saline moistened Promogran over Puraply three times weekly.07/26 5 :s/p right foot debridemen t, applicatio n of skin substitute graftfollo w up appt 08/15 at [facility] with vascular. Peripheral vascular disease 462807409 I73.9 s/p right femoral endarterec bridget with [...] prncontinu e lidocaine patch right Diabetes mellitus 513374 09 E11.9 continue metformin 500 mg BIDcontinu e to monitor FS Essential hypertension 91242267 I10 continue lisinopril 5 mg dailyconti nue metoprolol 50 mg bidfurosem oxana 40 mg dailymonit or BP /labs Anemia 689987729 D64.9 H/H 6.6/21.2- will repeat labsconsid er adding ascorbic acid dailyconti nue ferrous sulfate 325 mg dailycolor is normal, there is no SOB, extremitie s are warm.monit or CBC [id number] MIRI NORTON [address] [place] [address] 08/16/2023 08:21:08 08/18/2023 15:50:07 Open wound of right foot 3259661346 0998193 S91.301A see HPI with new finding today,07/19 : s/p wound debridemen :s/p right foot debridemen t, applicatio n of skin substitute graft08/10: tuesday morning sent back to S for excessive wound bleeding thru dressings- transfused 1 unit of packed red blood cells.08/11 : returned from [facility].: abnormal H/H 6.3/19.9 Peripheral vascular disease 216319870 I73.9 s/p right femoral endarterec bridget with [...] 6 prncontinu e lidocaine patch right Anemia 952641610 D64.9 H/H 6.3/19.9co ntinue ferrous sulfate 325 mg dailycolor is pale there is no SOB, extremitie s are warm, right foot cold. [id number] [facility] [address] [place] [address] [place] [address] 08/29/2023 12:13:56 09/05/2023 15:08:58 Amputated below knee 533206987 Z89.519 Critical limb ischemia of right lower extremity now s/p right below knee amputation .continue oxycodone 5 mg q 6 prnfollow up with vascular on 09/01/23 Peripheral vascular disease 942471996 I73.9 s/p below knee amputation continue asa, plavix and eliquiscon tinue oxycodonec ontinue lyrica 150 mg qd and 200 mg at HS Delirium 6799169 R41.0 resolved in acute careof note she is at baseline status, she is alert and oriented. Dysphagia 19731981 R13.1 0 resolvedsh e was seen by speech in acute acute care, continue reg diet with thin liquids Toxic encephalopathy 283 59600 G92.9 resolved in acute careammoni a level 20 on 08/24 Diabetes mellitus 724595 09 E11.9 continue metformin 500 mg BIDcontinu e to monitor FS Essential hypertension 71313607 I10 continue lisinopril 5 mg dailyconti nue metoprolol 50 mg bidfurosem oxana 40 mg dailymonit or BP /labs Hypothyroidism 71682333 E03.9 continue levothyrox ine 200 mcgtsh 8- recheck labs in 6-8 weeks Hyperlipidemia 54424272 E78.49 atorvastat in 40 mg dailymonit or lipids prn Anemia 701690382 D64.9 continue ferrous sulfate 325 mg dailycont. Vit D 1000u daily Constipation 60909861 K5 9.09 continue colace 100 mg bidschedul ed miralax 17 gm daily and senna 8.6 mg daily.incr ease oral hydration Anxiety 81078996 F41.9 continue ativan 0.5 mg q6 prnpsych eval and tx- she had recent amputation , I think she will benefit from speaking with psych, she will need support coping with limp loss. [id number] MIRI NORTON [address] [place] [address] [place] [address] 08/31/2023 10:12:07 09/05/2023 16:19:16 Cough 96841056 R05.9 08/29: non productive congested cough- is not interrupti ng with sleepchest xay showed no active infiltrate s or changes ofpulmonar y venous congestion or evidence of a pleural effusion.w ill start mucinex 600 mg q12 for 7 days and re eval. Amputated below knee 299 064372 Z89.519 Critical limb ischemia of right lower extremity now s/p right below knee amputation .continue oxycodone 5 mg q 6 prnfollow up with vascular on 09/01/23PT/O T eval and treatment for conditioni ng and strengthen ing. Peripheral vascular disease [id number] I73.9 s/p below knee amputation continue asa, plavix and eliquiscon tinue oxycodonec ontinue lyrica 150 mg qd and 200 mg at HS Essential hypertension 47641923 I10 continue lisinopril 5 mg dailyconti nue metoprolol 50 mg bidfurosem oxana 40 mg dailymonit or BP /labs Hypothyroidism 25019106 E03.9 continue levothyrox ine 200 mcgtsh 8- recheck labs in 6-8 weeks Anxiety 79062021 F41.9 continue ativan 0.5 mg q6 prnpsych eval and tx- she had recent amputation , I think she will benefit from speaking with psych, she will need support coping with limp loss.mood is stable today. [id number] MIRI NORTON [address] [address] 09/05/2023 08:59:26 09/08/2023 16:20:28 Cough [id number] R05.9 resolved Amputated below knee 299 548472 Z89.519 right below knee amputation .continue oxycodone 5 mg q 6 prncontinu e PT/OT eval and treatment for conditioni ng and strengthen ing.contin ue wound care Betadine, dry gauze, the stump ecological technical officer and the amputation shield. Peripheral vascular disease 614988335 I73.9 s/p below knee amputation continue asa, plavix and eliquiscon tinue oxycodonec ontinue lyrica 150 mg qd and 200 mg at HS Essential hypertension 69065638 I10 continue lisinopril 5 mg dailyconti nue metoprolol 50 mg bidfurosem oxana 40 mg dailymonit or BP /labs Hypothyroidism 78284311 E03.9 continue levothyrox ine 200 mcgtsh 8- recheck labs in 6-8 weeks Anxiety 89061076 F41.9 continue ativan 0.5 mg q6 prnshe was seen by rn psych who is recommendi ng starting duloxetine , benfits discuused ,patient will like to think about it. Carotid ar dahlia stenosis 68924396 I65.29 stent placement in juner. Amanda would like her on aspirin and plavix for 3 months post op, then can resume aspirin and eliquis.Sh e will need a carotid duplex later on this summer to recheck the right carotid, determine whether to reinterven e on the stent. [id number] MIRI NORTON JOSEY [address] [place] [phone] 09/07/2023 11:22:32 09/09/2023 08:57:56 Amputated below knee 046803974 Z89.519 right below knee amputation .continue oxycodone 5 mg q 6 prncontinu e PT/OT eval and treatment for conditioni ng and strengthen ing.contin ue wound care Betadine, dry gauze, the stump ecological technical officer and the amputation shield. Peripheral vascular disease 091107589 I73.9 s/p below knee amputation continue asa, plavix and eliquiscon tinue oxycodonec ontinue lyrica 150 mg qd and 200 mg at HS Essential hypertension 33131559 I10 continue lisinopril 5 mg dailyconti nue metoprolol 50 mg bidfurosem oxana 40 mg dailymonit or BP /labs Hypothyroidism 26615416 E03.9 continue levothyrox ine 200 mcgtsh 8- recheck labs in 6-8 weeks Anxiety 23363598 F41.9 continue ativan 0.5 mg q6 prnshe was seen by rn psych who is recommendi ng starting duloxetine , benfits discuused ,patient will like to think about it. Carotid ar dahlia stenosis 09675812 I65.29 stent placement in juner. Marecki would like her on aspirin and plavix for 3 months post op, then can resume aspirin and eliquis.Sh e will need a carotid duplex later on this summer to recheck the right carotid, determine whether to reinterven e on the stent. [id number] MIRI NORTON [facility] JOSEY [address] [place] [address] 09/12/2023 11:21:52 09/14/2023 16:46:41 Amputated below knee [id number] Z89.519 right below knee amputation .continue oxycodone 5 mg q 6 prncontinu e PT/OT eval and treatment for conditioni ng and strengthen ing.contin ue wound care Betadine, dry gauze, the stump ecological technical officer and the amputation shield. Peripheral vascular disease 822882329 I73.9 s/p below knee amputation continue asa, plavix and eliquiscon tinue oxycodone Q 6continue lyrica 150 mg qd and 200 mg at HS Essential hypertension 94182453 I10 continue lisinopril 5 mg dailyconti nue metoprolol 50 mg bidfurosem oxana 40 mg dailymonit or BP /labs Hypothyroidism 26285751 E03.9 continue levothyrox ine 200 mcgtsh 8- recheck labs in 6-8 weeks Constipation 83083093 K5 9.09 she reports that she has [...] evening, will order imaging.in crease oral hydration [id number] MIRI NORTON VINI DOWLING [address] [place] [phone] 09/15/2023 09:07:09 09/21/2023 10:30:12 Amputated below knee 753760422 Z89.519 right below knee amputation .continue oxycodone 5 mg q 6 prncontinu e PT/OT eval and treatment for conditioni ng and strengthen ing.contin ue wound care Betadine, dry gauze, the stump ecological technical officer and the amputation shield. Peripheral vascular disease 466037232 I73.9 s/p below knee amputation continue asa, plavix and eliquiscon tinue oxycodone Q 6continue lyrica 150 mg qd and 200 mg at HS Essential hypertension 08317265 I10 continue lisinopril 5 mg dailyconti nue metoprolol 50 mg bidfurosem oxana 40 mg dailymonit or BP /labs Hypothyroidism 01887014 E03.9 labs completed on 09/06 seen today and noted with TSH 16.3 and T4 5.1she is currently taking levothyrox ine 200 mcg daily, will increase to 225 mcg and recheck 10/26 or sooner.she reports being tired at times but is not having any other sx at this time Constipation 85370375 K5 9.09 see hpinormact felipe bowel soundscont inue colace 100 mg bidcontinu e miralax 17 gm daily and increase senna 8.6 mg to BID [id number] Afia Tierney MD [address] [place] [address] 09/19/2023 15:52:03 09/21/2023 10:49:23 Amputated below knee 370795116 Z89.511 As above. Peripheral vascular disease 613754840 I73.89 S/P right BKA.Contin ue Plavix 75 [...] stapes out then and then can start ecological technical officer.P rosthetics consult when ready. Essential hypertension 06692517 I10 BP remains in good control on lisinopril 5 mg qd, metoprolol 50 mg BID, and furosemide 40 mg qdMonitor BP and labs. Hypothyroidism 36914573 E03.9 Last TSH sl. high, with nl FT4, but low FT3.Contin ue levothyrox ine 225 mcgRecheck TSH as planned. Constipation 21898576 K5 9.09 No c/o today.Cont inue bowel meds as ordered.Mo nitor bowel function. Carotid ar dahlia stenosis 12227191 I65.29 S/P stent placement in 06/2023.To be on ASA and Plavix x 3 months.The n can stop Plavix.To have repeat U/S next month [id number] MIRI NORTON [facility] [address] [place] [address] 09/22/2023 13:52:47 09/23/2023 15:18:26 Amputated below knee 240310862 Z89.519 right below knee amputation .continue oxycodone 5 mg q 6 prncontinu e PT/OT for conditioni ng and strengthen ing.contin ue wound care Betadine, dry gauze, the stump ecological technical officer and the amputation shield.lupe sing states wound healing without s/sx of infection. Peripheral vascular disease 253441082 I73.9 continue asa, plavix and eliquiscon tinue oxycodone Q 6continue lyrica 150 mg qd and 200 mg at HS Essential hypertension 82133821 I10 continue lisinopril 5 mg dailyconti nue metoprolol 50 mg bidfurosem oxana 40 mg dailymonit or BP /labs Hypothyroidism 52095561 E03.9 Continue levothyrox ine 225 mcgrecheck TSH around 10/26 [id number] MIRI NORTON [facility] [address] [place] [address] 09/27/2023 11:23:38 10/18/2023 07:43:35 Amputated below knee 185852176 Z89.519 right below knee amputation .continue oxycodone 5 mg q 6 prncontinu e PT/OT for conditioni ng and strengthen ing.contin ue wound care Betadine, dry gauze, the stump ecological technical officer and the amputation shield.lupe sing states wound healing without s/sx of infection. Peripheral vascular disease 194990992 I73.9 continue asa, plavix and eliquiscon tinue oxycodone Q 6continue lyrica 150 mg qd and 200 mg at HS Essential hypertension 05769927 I10 continue lisinopril 5 mg dailyconti nue metoprolol 50 mg bidfurosem oxana 40 mg dailymonit or BP /labs Hypothyroidism 76303336 E03.9 Continue levothyrox ine 225 mcgrecheck TSH around 8 Anxiety 70389650 F41.9 continue ativan 0.5 mg q6 prnshe has agreed to try antidepres santshe was started on fluoxetine 20 mg daily on 09/18will monitor mood and behavior Diabetes mellitus 878670 09 E11.9 no recent BGL, will order weekly checks.con tinue metformin 500 mg BIDcontinu e to monitor FS [id number] MIRI NORTON [address] [address] 10/04/2023 09:15:00 10/18/2023 08:13:38 Amputated below knee 941694287 Z89.519 right below knee amputation .continue oxycodone 5 mg q 6 prncontinu e PT/OT for conditioni ng and strengthen ing.contin ue wound care Betadine, dry gauze, the stump ecological technical officer and the amputation shield.lupe francisco states wound healing without s/sx of infection. she will have remaining stable removed this upcoming friday 10/06. Peripheral vascular disease 773860207 I73.9 continue asa, plavix and eliquiscon tinue oxycodone Q 6continue lyrica 150 mg qd and 200 mg at HS Essential hypertension 71223703 I10 continue lisinopril 5 mg dailyconti nue metoprolol 50 mg bidfurosem oxana 40 mg dailymonit or BP /labs Hypothyroidism 91454097 E03.9 Continue levothyrox ine 225 mcgrecheck TSH around 10/26 Anxiety 12272391 F41.9 continue ativan 0.5 mg q6 prnshe has agreed to try antidepres santshe was started on fluoxetine 20 mg daily on 09/18will monitor mood and behavior Diabetes mellitus 834898 09 E11.9 no recent BGL, will order weekly checks.con tinue metformin 500 mg BIDcontinu e to monitor FS7/724 BGL 120 [id number] MIRI NORTON [address] [address] 10/06/2023 08:54:05 10/18/2023 08:26:39 Amputated below knee 654847891 Z89.519 right below knee amputation .continue oxycodone 5 mg q 6 prn- will change to 24 prn and eventually stop of noted she has not used in 3 days.galindo nue PT/OT for conditioni ng and strengthen ing.contin ue wound care Betadine, dry gauze, the stump ecological technical officer and the amputation shield.wou nd healing without s/sx of infection. she will have remaining nehemias removed this upcoming friday 10/06. Peripheral vascular disease 223743534 I73.9 continue asa, plavix and eliquiscon tinue oxycodone Q 6continue lyrica 150 mg qd and 200 mg at HS Essential hypertension 02333097 I10 continue lisinopril 5 mg dailyconti nue metoprolol 50 mg bidfurosem oxana 40 mg dailymonit or BP /labs Anxiety 17462133 F41.9 continue ativan 0.5 mg q6 prnshe has agreed to try antidepres santshe was started on fluoxetine 20 mg daily on 09/18[facility] monitor mood and behavior [id number] [facility] [address] [place] [address] 10/10/2023 10:05:30 10/18/2023 09:02:23 Amputated below knee 856372535 Z89.519 right below knee amputation .remaining nehemias removed on 10/07/23- she has small superficia l open area moist and draining scant serous output. wound care for to cleanse with NS and apply aquacel cover with gauze.cont inue oxycodone 5 mg q 12 prn-contin ue PT/OT for conditioni ng and strengthen ing.contin ue wound care, the stump ecological technical officer and the amputation shieldwoun d healing without s/sx of infection. Peripheral vascular disease 756505264 I73.9 continue asa, plavix and eliquiscon tinue oxycodone Q 6continue lyrica 150 mg qd and 200 mg at HS Essential hypertension 31418036 I10 BP has been underconti nue lisinopril 5 mg dailyconti nue metoprolol 50 mg bidfurosem oxana 40 mg dailymonit or BP /labs Anxiety 14326019 F41.9 continue ativan 0.5 mg q6 prnshe has agreed to try antidepres santshe was started on fluoxetine 20 mg daily on 09/18will monitor mood and behavior Carotid ar dahlia stenosis 50666541 I65.29 10/09:Histo ry of bilateral TCAR and [...] whether to reinterven e on the stent. [id number] Tere HerreraMariajose MARTINI JOSEY [address] [facility] [place] [address] 10/14/2023 09:41:31 10/18/2023 09:28:24 Amputated below knee 729203107 Z89.519 does not need wrap. healedappl y skin prep BID nsg updated.wo rking with PTpain controlled . Vascular dementia 601563 004 F01.54 chronis stablediff iculty to recall thoughts and respond to questions. mood stablecont inue supportive caremonito r for decline. [id number] ZENOBIA BRADLEY JOSEY [address] [facility] [place] [address] 10/20/2023 09:58:42 10/22/2023 09:32:05 Amputated below knee 582724437 Z89.519 right below knee amputation .remaining nehemias removed on 10/07/23- continues to heal well.stop oxycodone 5 mg q 12 prn due to minimal usecontinu e PT/OT for conditioni ng and strengthen ing.contin ue wound care, the stump ecological technical officer and the amputation shieldwoun d healing without s/sx of infection. Peripheral vascular disease 253519979 I73.9 continue asa, plavix and eliquiscon tinue lyrica 150 mg qd and 200 mg at HS for pain mgmt Essential hypertension 19526750 I10 VSS, BP soft on occasionco ntinue lisinopril 5 mg dailyconti nue metoprolol 50 mg bidfurosem oxana 40 mg dailymonit or BP /labs Anxiety 45912906 F41.9 continue ativan 0.5 mg q6 prn - occasional use, discussed with nsg. will renew for another 14 days.Dulox etine 20 mg daily recently started, orly. well so far, nsg. feels it has been helping mood and behaviors. Continue to monitorPsy ch following as well. Carotid ar dahlia stenosis 56052738 I65.29 History of bilateral TCAR and left [...] ultrasound , plavix, and follow up appt. [id number] MIRI NORTON [address] [facility] [place] [address] 10/25/2023 10:59:01 10/26/2023 15:44:22 Amputated below knee 730213430 Z89.519 right below knee amputation , continues to heal well.now open to air ,wound healing without s/sx of infection. continue tylenol and lyrica Peripheral vascular disease 953264755 I73.9 continue asa, plavix and eliquiscon tinue lyrica 150 mg qd and 200 mg at HS for pain mgmtwill discuss need to continue plavix at vascular appt 10/28/23 Essential hypertension 44200451 I10 continue lisinopril 5 mg dailyconti nue metoprolol 50 mg bidfurosem oxana 40 mg dailymonit or BP /labs Anxiety 25091688 F41.9 continue ativan 0.5 mg q6 prn - occasional use, discussed with nsg. will renew for another 14 days.Dulox etine 20 mg daily recently started, orly. well so far, nsg. feels it has been helping mood and behaviors. - seen by rn psych on 10/23 reports feeling some improvemen t with duloxetine , recommende d to continueCo ntinue to monitorPsy ch following as well. Carotid ar dahlia stenosis 34120634 I65.29 History of bilateral TCAR and left [...] will be discussed at that appointmen t. [id number] MIRI NORTON [address] [place] [address] 10/26/2023 12:11:32 10/31/2023 16:07:08 COVID-19 895854921 U07.1 see hpiwill started paxlovid, isolation precaution supportati ve treatment: with mucinex 600 mg BID for 5 dayspaxlov id as orderedprn neb tx for sob. [id number] MIRI NORTON [address] [place] [address] 10/31/2023 16:29:45 11/01/2023 13:09:54 COVID-19 448303348 U07.1 she has been stable no reportable sx notedwill received last dose of paxlovid tonightiso lation precaution continue supportati ve treatment: prn neb tx for sob. Amputated below knee 299 286117 Z89.519 right below knee amputation , continues to heal well.now open to air ,wound healing without s/sx of infection. continue tylenol and lyrica Peripheral vascular disease 934444323 I73.9 continue asa, plavix and eliquiscon tinue lyrica 150 mg qd and 200 mg at HS for pain mgmtwill discuss need to continue plavix at vascular appt 10/28/23 Essential hypertension 37806465 I10 continue lisinopril 5 mg dailyconti nue metoprolol 50 mg bidfurosem oxana 40 mg dailymonit or BP /labs Anxiety 88831749 F41.9 continue ativan 0.5 mg q6 prn -continue Duloxetine 20 mg dailymood has been good.Galindo nue to monitorPsy ch following as well. Carotid ar dahlia stenosis 03338328 I65.29 History of bilateral TCAR and left [...] will be discussed at that appointmen tCandis [id number] MIRI NORTON [address] [place] [address] rd [place]NANDE[place] [address] 11/04/2023 09:52:30 11/08/2023 11:09:10 COVID-19 094558613 U07.1 completed anti-viral . Amputated below knee 299 211632 Z89.519 right below knee amputation , continues to heal well.now open to air ,wound healing without s/sx of infection. continue tylenol and lyrica Peripheral vascular disease 020703343 I73.9 continue asa, plavix and eliquis- on hold for now for melenacont inue lyrica 150 mg qd and 200 mg at HS for pain mgmt Essential hypertension 34441568 I10 continue lisinopril 5 mg dailyconti nue metoprolol 50 mg bidfurosem oxana 40 mg dailymonit or BP /labs Anxiety 35055548 F41.9 continue ativan 0.5 mg q6 prn -continue Duloxetine 20 mg dailyConti nue to monitorPsy ch following as well. Carotid ar dahlia stenosis 44915389 I65.29 History of bilateral TCAR and left [...] be discussed at that appointmen tCandis Chamberlain [id number] K92.1 11/02: nursing report black tarry stool, [...] hematemesi s, weakness, dizziness and or pallor. [id number] MIRI NORTON [address] [place] [address] [place] [address] 11/07/2023 08:49:06 11/09/2023 10:55:24 Melena 0429731 K92.1 11/06: continue to have black tarry [...] s, weakness, dizziness and or pallor. Anemia 184668909 D64.9 H/H trending down today noted at 09/12-signi ficant drop in 7 days tested 3 times. continue ferrous sulfate 325 mg dailycont. Vit D 1000u daily [id number] ZENOBIA Ulloa [address] [place] [address] [place] [address] 11/12/2023 07:51:13 11/18/2023 09:17:41 Anemia 106545472 D64.9 [place] [facility] [place] Held Eliquis, aspirin and Plavix since [...] obtained with hemoglobin 6 on [place] to [facility] [place] reports of blood in stool or melena [...] bmp weekly on mondays x 3 Esophagitis 76341106 K20 .90 no melena noted in hospital, [...] bmp weekly on mondays x 3 Anxiety 52529614 F41.9 while in hopsital her ativan 0.5 mg q6 prn was discontinu edcontinue Duloxetine 20 mg dailyConti nue to monitorPsy ch following as well. Hypothyroidism 19079128 E03.9 adjusted in hospitalco nt levothyrox ine 200 mcg po dailyreche ck tsh in 8 weeksmonit or Essential hypertension 73275692 I10 bp initially soft in hospital, lisinopril was held, now resolved and resumedcon tlisinopri l 5 mg po dailymetop rolol 50 mg po q 12 hoursmonit or Amputated below knee 299 332554 Z89.519 right below knee amputation , continues to heal well.galindo nue tylenol and lyricafu with vascular as planned Peripheral vascular disease 174621591 I73.9 eliquis on holdcontin ueasa, plavixlyri ca 150 mg qdmonitor Pressure i njury of coccygeal region of back stage II 0128631101 7598855 L89.152 healing denuded skin to right coccyx11/11 apply barrier cream topically bid and prnfrequen t brief changes and reposition ingmonitor for infection Vascular dementia 723562 004 F01.54 stablediff iculty to recall thoughts and respond to questions at baseline per staffmood stablecont inue supportive caremonito r for decline. [id number] MIRI NORTON [address] [place] [address] [place] [address] 11/14/2023 09:54:52 11/18/2023 10:04:39 Esophagitis 40573988 K20.90 no melena noted in hospital, but [...] bmp weekly on mondays x 3 Anemia 144057067 D64.9 [place] [facility] [place]: Held Eliquis, aspirin and Plavix since [...] obtained with hemoglobin 6 on admission to [facility] [place] reports of blood in stool or melena [...] bmp weekly on mondays x 3 Anxiety 40980270 F41.9 while in hopsital her ativan 0.5 mg q6 prn was discontinu edcontinue Duloxetine 20 mg dailyConti nue to monitorPsy ch following as well. Hypothyroidism 56125866 E03.9 adjusted in hospitalco nt levothyrox ine 200 mcg po dailyreche ck tsh in 8 weeksmonit or Essential hypertension 40892925 I10 bp initially soft in hospital, lisinopril was held, now resolved and resumedcon tlisinopri l 5 mg po dailymetop rolol 50 mg po q 12 hoursmonit or Amputated below knee 299 579399 Z89.519 right below knee amputation , continues to heal well.galindo nue tylenol and lyricafu with vascular as planned Peripheral vascular disease 821133280 I73.9 eliquis on holdcontin ueasa, plavixlyri ca 150 mg qdmonitor Pressure i njury of coccygeal region of back stage II 9888155983 1170006 L89.152 healing denuded skin to right coccyx11/11 apply barrier cream topically bid and prnfrequen t brief changes and reposition ingmonitor for infection Vascular dementia 121447 004 F01.54 stablediff iculty to recall thoughts and respond to questions at baseline per staffmood stablecont inue supportive caremonito r for decline. [id number] MIRI NORTON [address] [address] 11/17/2023 14:04:30 11/23/2023 09:14:45 Anxiety 97125388 F41.9 stableDulo xetine 20 mg dailyConti nue to monitorPsy ch following as well. Hypothyroidism 30894056 E03.9 adjusted in hospitalco nt levothyrox ine 200 mcg po dailyreche ck tsh in 8 weeksmonit or Essential hypertension 40658497 I10 stable-lis inopril 5 mg po dailymetop rolol 50 mg po q 12 hoursmonit or Amputated below knee 299 741041 Z89.519 right below knee amputation , continues to heal well.galindo nue tylenol and lyricafu with vascular as planned Peripheral vascular disease 546377922 I73.9 eliquis stoppedcon tinue:asa, plavixlyri ca 150 mg qdmonitor Vascular dementia 185425 [address] declinebas sahara difficulty with word findingmoo d stablecont inue supportive caremonito r for decline. Anemia 012574324 D64.9 continuefe rrous sulfate 325 mg dailycont. Vit D 1000u dailymonit or cbc and bmp weekly on mondays x 3 [id number] MIRI NORTON [address] [address] 11/21/2023 11:10:23 11/23/2023 10:20:09 Anxiety 16926802 F41.9 stableDulo xetine 20 mg dailyConti nue to monitorPsy ch following as well. Hypothyroidism 14509423 E03.9 adjusted in hospitalco nt levothyrox ine 200 mcg po dailyreche ck tsh in 8 weeksmonit or Essential hypertension 32724439 I10 stable-lis inopril 5 mg po dailymetop rolol 50 mg po q 12 hoursmonit or Amputated below knee 299 736131 Z89.519 right below knee amputation , continues to heal well.galindo nue tylenol and lyricafu with vascular as planned Peripheral vascular disease 712716804 I73.9 eliquis stoppedcon tinue:asa, plavixlyri ca 150 mg qdmonitor Vascular dementia 401380 [address] declinebas sahara difficulty with word findingmoo d stablecont inue supportive caremonito r for decline. Anemia 499199084 D64.9 continuefe rrous sulfate 325 mg dailycont. Vit D 1000u dailymonit or cbc and bmp weekly on mondays x 3 [id number] MIRI NORTON [address] [address] 11/29/2023 10:14:07 12/01/2023 14:32:41 Anxiety 22115338 F41.9 stablecont inue duloxetine 20 mg daily- she is having a positive response with med.Contin ue to monitorupd ate HDBH with concerns. Hypothyroidism 24053964 E03.9 adjusted in hospitalco nt levothyrox ine 200 mcg po dailyreche ck tsh in 8 weeks- ord for . 11/18monito r Essential hypertension 85210696 I10 continue lisinopril 5 mg po dailyconti nue metoprolol 50 mg po q 12 hoursmonit or Amputated below knee 299 846874 Z89.519 right below knee amputation , continues to heal well.galindo nue tylenol and lyricafu with vascular as planned Peripheral vascular disease 629124321 I73.9 eliquis stoppedcon tinue:asa, plavixlyri ca 150 mg qdmonitor Vascular dementia 885744 004 F01.54 expect declinebas sahara difficulty with word findingmoo d stablecont inue supportive caremonito r for decline. Anemia 392010295 D64.9 continuefe rrous sulfate 325 mg dailycont. Vit D 1000u dailymonit or cbc and bmp weekly on mondays x 39/3: H/H has been stable increasing every week. [id number] MIRI NORTON [address] [address] 12/01/2023 11:44:42 12/05/2023 13:22:49 Amputated below knee 222317919 Z89.519 right below knee amputation open wound noted on stump concerning for infection, yellowish drainage noted on dressing ,will send culture.co ntinue tylenol and lyricafu with vascular as planned Peripheral vascular disease 751717964 I73.9 eliquis stoppedcon tinue:asa, plavixlyri ca 150 mg qdmonitor Vascular dementia 740440 004 F01.54 expect declinebas sahara difficulty with word findingmoo d stablecont inue supportive caremonito r for decline. [id number] MIRI NORTON [address] [address] 12/05/2023 09:49:14 12/07/2023 10:15:18 Amputated below knee 975953888 Z89.519 right below knee amputation wound culture pendingcon tinue tylenol and lyricafu with vascular as planned Peripheral vascular disease [id number] I73.9 eliquis stoppedcon tinue:asa, plavixlyri ca 150 mg qdmonitor Vascular dementia 559136 004 F01.54 expect declinebas sahara difficulty with word findingmoo d stablecont inue supportive caremonito r for decline. [id number] MIRI NORTON [address] [address] 12/12/2023 08:48:56 12/14/2023 08:51:51 Amputated below knee [id number] Z89.519 right below knee amputation continue tylenol and lyricafu with vascular as planned on 12/16/23 Peripheral vascular disease [id number] I73.9 eliquis stoppedcon tinue:asa, plavixlyri ca 150 mg qdmonitor Vascular dementia 354760 004 F01.54 expect declinebas sahara difficulty with word findingmoo d stablecont inue supportive caremonito r for decline. Subconjunc tival hemorrhage of left eye [id number] 34573 H11.32 no pain or visual changesnur sing to update provider for changes in vision, pain or discharge. can apply warm compress for comfort if irritated. 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 Peripheral vascular disease 103963129 I73.9 12/15 carotid duplex shows 70 to 99% stenosis in her right ICA, this is s/p TCAR and she has a patent stent. Her left side shows 1 to 49% stenosis in the ICA with a patent stent.repe at duplex in 6 months eliquis stoppedcon tinue:asa, plavixlyri ca 150 mg qdmonitor Vascular dementia 427107 004 F01.54 expect declinebas sahara difficulty with word findingmoo d stablecont inue supportive caremonito r for decline. Subconjunc tival hemorrhage of left eye [id number] 81480 H11.32 resolvingn o pain or visual changesnur sing to update provider for changes in vision, pain or discharge. can apply warm compress for comfort if irritated. monitor for worsening sx, pt is on asa and plavix daily.H/H stable , will continue to monitor Insomnia 285109699 G47.0 0 see HPIstop melatonins tart trazodone 50 mg at HSmonitor for effectiven ess [id number] MIRI NORTON VINI JOSEY [address] [facility] [place] [place] [address] 12/22/2023 11:08:23 12/23/2023 12:52:01 Amputated below knee 145732956 Z89.519 right below knee amputation continue tylenol [...] and promote wound healing. Peripheral vascular disease 303836437 I73.9 12/15 carotid duplex shows 70 to [...] plavixlyri ca 150 mg qdmonitor Vascular dementia 214232 004 F01.54 expect declinebas sahara difficulty with word findingmoo d stablecont inue supportive caremonito r for decline. Subconjunc tival hemorrhage of left eye [id number] 63671 H11.32 resolvingn o pain or visual changesnur sing to update provider for changes in vision, pain or discharge. can apply warm compress for comfort if irritated. monitor for worsening sx, pt is on asa and plavix daily.H/H stable , will continue to monitor Insomnia 659943608 G47.0 0 continue trazodone 50 mg at HS- will reassess at next visit.prakash cat for effectiven essdiscuss ed with patient avoiding caffeine drinks before bed, antidepres nuria and BP meds can causes insomnia. we discussed trying relaxation techniques such as deep breathing and guided imagery. [id number] MIRI NORTON [address] [place] [place] [address] 12/27/2023 14:42:28 12/28/2023 11:41:01 Amputated below knee 220522674 Z89.519 right below knee amputation continue tylenol [...] and promote wound healing. Peripheral vascular disease 485084115 I73.9 12/15 carotid duplex shows 70 to [...] plavixlyri ca 150 mg qdmonitor Vascular dementia 405388 004 F01.54 expect declinebas sahara difficulty with word findingmoo d stablecont inue supportive caremonito r for decline. Subconjunc tival hemorrhage of left eye [id number] 76737 H11.32 resolvingn o pain or visual changesnur sing to update provider for changes in vision, pain or discharge. can apply warm compress for comfort if irritated. monitor for worsening sx, pt is on asa and plavix daily.H/H stable , will continue to monitor Insomnia 679252009 G47.0 0 continue trazodone 50 mg at HS- will reassess at next visit.prakash cat for effectiven essdiscuss ed with patient avoiding caffeine drinks before bed, antidepres nuria and BP meds can causes insomnia. we discussed trying relaxation techniques such as deep breathing and guided imagery. [id number] MIRI NORTON [address] [place] [address] 01/02/2024 08:33:03 01/03/2024 11:47:07 Amputated below knee [id number] Z89.519 followed closely by vascular.r ight below [...] and promote wound healing. Peripheral vascular disease 729094660 I73.9 12/15 carotid duplex shows 70 to [...] plavixlyri ca 150 mg qdmonitor Vascular dementia 618154 [address] declinebas sahara difficulty with word findingmoo d stablecont inue supportive caremonito r for decline. Subconjunc tival hemorrhage of left eye 1486170021 99867 H11.32 resolvingn o pain or visual changesnur sing to update provider for changes in vision, pain or discharge. can apply warm compress for comfort if irritated. monitor for worsening sx, pt is on asa and plavix daily.H/H stable , will continue to monitor Insomnia 845774510 G47.0 0 continue trazodone 50 mg at [...] Member ID Guarantor Name 12/28/2023 2 MEDICAID-[place]: [facility] Marixa Chan [id number] Marixa Chan 12/27/2023 1 MEDICARE B-[place]: [employer] SERVICES Marixa Chan [id number] Marixa Chan Notes Date Note Type Note [...] for acute rounding visit MIRI NORTON [address] [facility], [facility] [address], [place], [address], [place] 12/12/2023 14:39:04 12/19/2023 text/html ROS as noted [...] playing television all night. MIRI NORTON [address] [facility], [address], [place], [address], [place] 12/20/2023 15:35:55 12/22/2023 text/html ROS as noted [...] have a stump strinker. MIRI NORTON [address] [facility] [address], [place], [address], [facility] [employer] 12/22/2023 16:22:53 12/27/2023 text/html ROS as noted [...] not have a stump strinker. MIRI NORTON [address] [place] [address] [address], [place], [address], [facility] [employer] 12/27/2023 15:20:31 01/02/2024 text/html ROS as noted [...] have a stump strinker. MIRI NORTON [address] [facility], [facility] [address], [place], [address], [facility] [employer] 01/02/2024 13:22:00 OBGyn Episode No OBEpisode recorded.
--- OUTSIDE RECORDS SUMMARY | 2025-01-14 05:47 | XMS_ITS | Clinical Summary ---
Author Organization [employer] Address [address] [facility] 7t [place] [address] Care Team Providers Care Sound Installation Worker Name Role Phone Unavailable Primary Care [...] Most Recently Relevant to Health Maintenance Insurance [facility] MEDICAID STAND ADULT
--- OUTSIDE RECORDS SUMMARY | 2025-01-14 05:47 | XMS_ITS | Encounter Summary ---
Author Organization [employer] Address [address] [facility] 7t [place] [address] Care Team Providers Care Easter Bunny Name Role Phone Unavailable Primary Care Provider Unavailabl e Encounter Details Date Type Department Care Team (Latest Contact Info) Description 07/09/2020 Abstract [facility] CONVERSIONS Dental, Provider, DDS [...]
--- OUTSIDE RECORDS SUMMARY | 2025-01-14 05:47 | XMS_ITS | Clinical Summary ---
Author Organization [address] Address [address] [place] [address] Care Team Providers Care Certified Fire Investigator Name Role Phone Unavailable Primary Care Provider [...] vaccine 10/26/2024 Covid-19 vaccine series ( - 2024- season) 2024 RSV Immunization (1 - 1-dose 75+ series) 07/23/2030 Cervical cancer screening Discontinued Meningococcal B Vaccine Aged Out No l onger eligible based on patient's age to complete this topic Meningococcal Vaccine Aged Out No kinga blanche eligible based on patient's age to complete this topic
--- OUTSIDE RECORDS SUMMARY | 2025-01-14 05:47 | XMS_ITS | Encounter Summary ---
Author Organization [employer] Address [address] [facility] 7t [place] [address] Care Team Providers Care Location Analyst Name Role Phone Unavailable Primary Care Provider Unavailabl e Encounter Details Date Type Department Care Team (Latest Contact Info) Description 05/02/2018 Abstract [facility] CONVERSIONS Dental, Provider, DDS Social History [...]
--- OUTSIDE RECORDS SUMMARY | 2025-01-14 05:47 | XMS_ITS | Clinical Summary ---
Author Organization [facility] it Address [address] [place] [address] Care Team Providers Care Cable Weaver Name Role Phone Unavailable Primary Care Provider Unavailabl e Immunizations Immunization Administration Dates Next Due Pfizer SARS-CoV-2 COVID-19, mRNA, LNP-S, preservative free 07/02/2020,06/07/2020 Surgical History Surgery Date Site/Laterality Comments NECK SURGERY PROCEDURE: HISTORICAL NECK SURGERY; COMMENT: spinal stenosis TONSILLECTOMY PROCEDURE: HISTORICAL TONSILLECTOMY CHOLECYSTECTOMY 09/1989 PROCEDURE: HISTORICAL CHOLECYSTECTOMY BREAST REDUCTION PROCEDURE: GA BREAST REDUCTION ROBOTIC ASSISTED HYSTERECTOMY 03/05/14 PROCEDURE: [...]
--- OUTSIDE RECORDS SUMMARY | 2025-01-14 05:47 | XMS_ITS | Encounter Summary ---
Author Organization [employer] Address [address] [facility] 7t [place] [address] Care Team Providers Care Mushroom Cutter Name Role Phone Unavailable Primary Care Provider Unavailabl e Encounter Details Date Type Department Care Team (Latest Contact Info) Description 06/29/2021 Abstract [facility] CONVERSIONS Dental, Provider, DDS Social [...]
--- OUTSIDE RECORDS SUMMARY | 2025-01-14 05:47 | XMS_ITS | Encounter Summary ---
Author Organization [employer] Address [address] [place] [address] Care Team Providers Care Dryerman/Woman Name Role Phone Unavailable Primary Care Provider Unavailabl e Reason for Visit * Reason Onset Date Comments medical clearance 05/27/2022 Encounter Details Date Type Department Care Team (Late st Contact Info) Description 05/27/2022 Telephone [facility] [address] [place] [address] Davonte Cunningham DDS medical clearance Social History [...] was for medical clearance. Pls re send [phone] * Telephone Encounter - Lucina Leigh - [...] was for medical clearance. Pls re send [phone] documented in this encounter Plan of Treatment Not on file documented as of this encounter Visit Diagnoses Not on filedocumented in this encounter
--- OUTSIDE RECORDS SUMMARY | 2025-01-14 05:47 | XMS_ITS | Patient Health Record ---
Author Organization [address] [place] [address] [address] [facility] Address [address] [id number] Care Team Providers Care Wool Sampler Name Role Phone BARTOLO Dunbar Supriya [phone] Reason For Referral No Information Plan Of Treatment No Information
--- OUTSIDE RECORDS SUMMARY | 2025-01-14 05:48 | XMS_ITS | Encounter Summary ---
Author Organization [facility] Address [address] [place] [address] Phone Care Team Providers Care Sql Data Architect Name Role Phone Agueda Ann MD Primary Care Provider [phone] Andie Rossi MD Unavailable West Doll MD Unavailable Britany Coles MD Unavailable [phone] Naun Hoang MD Unavailable + Agueda Ann MD Unavailable Mely Bhatti RN Unavailable [email or web address] Encounter Details Date Type Department Care Team (Late st Contact Info) Description 12/24/2022 Procedure Pass [facility], [facility] [address] [place] [address] Social History Tobacco Use Types Packs/Day Years [...] high school, GED, job training, learning the Sami language, technical skills, or developing parenting skills)? [...] 12/24/2022 9:29 AM Natalya Menon, NICOLE * [place] Suicide Severity Rating Scale (Screener/Recent Self-Report) Question [...] as of this encounter Care Teams Sql Data Architect Relationship Specialty Start Date End Date Agueda Ann MD [address] [address] [email or web address] PCP - General Family Medicine 02/01/19 Andie Rossi MD [address] [place] [address] Neurology 03/02/19 West Doll MD [address] [place] [address] [address] [place] [address] Cardiology 03/02/19 Britany Coles MD [address] [place] [address] [address] [place] [address] [email or web address] Surgery 03/02/19 Naun Hoang MD [address] [place] [address] Infectious Diseases 03/02/19 Agueda Ann MD [address] [address] [email or web address] Insurance Assigned Provider 4/6/24 1/6/25 Mely Bhatti, RN [address] [place] [address] [email or web address] 05/12/23 06/09/23 documented as of this encounter Additional Source Comments The information contained in this document represents components of the legal health record. It is not the complete legal health record.[facility]
--- OUTSIDE RECORDS SUMMARY | 2025-01-14 05:48 | XMS_ITS | Encounter Summary ---
Author Organization [facility] Address [address] [place] [address] Phone Care Team Providers Care Electromechanical Assembly Technician Name Role Phone Agueda Ann MD Primary Care Provider [phone] Andie Rossi MD Unavailable [phone] West Doll MD Unavailable [phone] Britany Coles MD Unavailable [phone] Naun Hoang MD Unavailable + Agueda Ann MD Unavailable Mely Bhatti RN Unavailable [email or web address] Encounter Details Date Type Department Care Team (Late st Contact Info) Description 12/25/2022 Procedure Pass Non-Invasive Cardiology 30 [place] [address] Social History Tobacco Use Types Packs/Day Years [...] documented as of this encounter Care Teams Electromechanical Assembly Technician Relationship Specialty Start Date End Date Agueda Ann MD [address] [place] [address] [email or web address] PCP - General Family Medicine 02/01/19 Andie Rossi MD [address] [place] [address] Neurology 03/02/19 West Doll MD [address] [place] [address] 104 [place] [address] Cardiology 03/02/19 Britany Coles MD [address] [place] [address] 140 [place] [phone] Orthopedic Surgery 03/02/19 [place] [address] [place] [address] Infectious Diseases 03/02/19 Agueda Ann MD [address] [address] [email or web address] Insurance Assigned Provider 07/02/23 04/02/24 Mely Bhatti RN [address] [address] [email or web address] Special Education Director 05/12/23 06/09/23 documented as of this encounter Additional Source Comments The information contained in this document represents components of the legal health record. It is not the complete legal health record.[facility]
--- OUTSIDE RECORDS SUMMARY | 2025-01-14 05:48 | XMS_ITS | Encounter Summary ---
Author Organization [facility] Address [address] [place] [address] Phone Care Team Providers Care Infusion Therapy Nurse Name Role Phone Agueda Ann MD Primary Care Provider [phone] Andie Rossi MD Unavailable West Doll MD Unavailable [phone] Britany Coles MD Unavailable [phone] Naun Hoang MD Unavailable + Agueda Ann MD Unavailable Mely Bhatti RN Unavailable [email or web address] Encounter Details Date Type Department Care Team (Late st Contact Info) Description 12/24/2022 Procedure Pass [facility], Ct Scan - [facility] [address] [place] [address] Social History Tobacco Use Types Packs/Day Years [...] high school, GED, job training, learning the [place] language, technical skills, or developing parenting skills)? [...] 9:29 AM ALEKT Natalya Delgadillo RN * [place] Suicide Severity Rating Scale (Screener/Recent Self-Report) Question [...] documented as of this encounter Care Teams Infusion Therapy Nurse Relationship Specialty Start Date End Date Agueda Ann MD [address] [address] [email or web address] PCP - General Family Medicine 02/01/19 Andie Rossi MD [address] [place] [address] Neurology 03/02/19 West Doll MD [address] [place] [address] [address] [place] [address] Cardiology 03/02/19 Britany Coles MD [address] [place] [address] 140 [place] [address] [email or web address] Orthopedic Surgery 03/02/19 Naun Hoang MD [address] [place] [address] Infectious Diseases 03/02/19 Agueda Ann MD [address] [address] [email or web address] Insurance Assigned Provider 07/02/23 04/02/24 Mely Bhatti, NICOLE [address] [address] [email or web address] 05/12/23 06/09/23 documented as of this encounter Additional Source Comments The information contained in this document represents components of the legal health record. It is not the complete legal health record.[facility]
--- OUTSIDE RECORDS SUMMARY | 2025-01-14 05:48 | XMS_ITS | Clinical Summary ---
Author Organization [facility] Address [address] [place] [address] Phone Care Team Providers Care Ice Guard Skating Rink Name Role Phone Agueda Ann MD Primary Care Provider [phone] Andie Rossi MD Unavailable [phone] West Doll MD Unavailable [phone] Britany Coles MD Unavailable Naun Hoang MD [...] mouth daily. 4 Active neomycin/bacitra negrito/polymyxinB (NEOSPORIN, REL-HBE-YWUZT, TP) Apply 1 Application topically 2 (two) [...] 20 MG tabletIndication s:Coronary artery disease involving ho-chunk heart without angina pectoris, unspecified vessel or [...] an echo, and follow-up with her own mailroom assistant who is at [facility]. Acquired hypothyroidism 09/04/2020 Assessment & Plan (12/26/2022 [...] like to little and she is established [facility] so I like her to see the lye bath operator there she understands and agrees this plan Assessment & Plan (05/17/2019 12:35 PM EST): She is working out, tracking her caloric intake and sticking to nutrition plan although she is under eating. No clear etiology for her weight gain. Start taking levothyroxine separately from the other medications. Check labs today. Make follow-up with lye bath operator CAD (coronary artery disease) 03/02/2019 Overview (03/02/2019): h/o stent Assessment & Plan (12/26/2022 3:02 PM EDT): No active cp or acute concern -Continue kapok and cotton machine operator -Continue aspirin, atorvastatin, Plavix, and Zetia Is [...] and chronic pain. Certainly would benefit from MACHINE OPERATOR REPLANTER services and I have discussed with pt [...] pt can establish with someone new at [facility]. Assessment & Plan (01/21/2021 12:34 PM [...] and gait. She will be going to [facility] physical medicine and rehabilitation in [place] for this. IgG monoclonal gammopathy Assessment & Plan (03/02/2019 12:15 PM EST): Patient denies ever seeing hematology, has never heard this diagnosis and does not think that she has this. As I do not have records it is difficult for me to understand where this came from. I would like to review her [facility] records and if necessary we will [...] appt for Neuro muscular in Dec at [facility]). No further pain. F/u as needed [...] this topic Medical Devices Implanted Type Area Utility Technician Device Identifier Shelf Expiration Date Model / Serial / Lot Stent Supera 6fr 5.5mm 120mm 120cm .014in Otw Vascular Peripheral Nitinol Self Expanding Closed End Braided - [id number] Implanted:Qty: 1 on 11/18/2022 by David Mendez MD at [facility] Stent [employer] 04/27/2024 [id number] / / [id number] Cardiac Stent Neck Hardware Procedures Procedure Name [...] EST) SODIUM 137 133 - 146 mmol/L [facility] CHLORIDE 101 96 - 108 mmol/L [facility] POTASSIUM 4.1 3.3 - 5.1 mmol/L [facility] CO2 24 21 - 35 mmol/L [facility] BUN 27(H) 6 - 19 mg/dL [facility] CREATININE 0.50 0.5 - 1.5 mg/dL [facility] GLUCOSE 103(H) 70 - 99 mg/dL [facility] CALCIUM 9.0 8.4 - 10.3 mg/dL [facility] EGFR 103 >59 mL/min/1.7 3m2 [facility] Comment:Estimated glomerular filtration rate calculated using the CKD-EPI refit equation. ANION GAP 16 10 - 20 mmol/L [facility] Blood 05/23/2023 4:12 PM EST 05/23/2023 4:32 PM EST Mely Padron PA-C LAB BLOOD ORDERABLES Final R esult [address] [address] * (ABNORMAL) TSH with reflex (01/13/2023 7:58 AM EDT) TSH 0.03(L) 0.27 - 4.20 uIU/mL [facility] Blood 01/13/2023 7:58 AM EDT 01/13/2023 8:03 AM EDT Agueda Ann MD LAB BLOOD ORDERABLES Final Resul t Performing Organization Address City/[facility]/ZIP Co de Phone Number [address] [address] * (ABNORMAL) Lipid panel (12/25/2022 5:22 AM EDT) HDL 46 mg/dL [facility] Comment: Interpretation <40 mg/dL: Low HDL cholesterol (major risk factor for CHD) Greater than or equal to 60 mg/dL: High HDL cholesterol ( negative risk factor for CHD) HDL - cholesterol is affected by a number of factors, e.g. smoking, excerise, hormones, sex and age. CHOLESTEROL 98 0 - 240 mg/dL [facility] TRIGLYCERIDES 86 30 - 160 mg/dL [facility] LDL 35(L) 50 - 129 mg/dL [facility] Comment: LDL levels in terms of risk for coronary heart disease: <100 mg/dL: Optimal 100-129 mg/dL: Near or above optimal 130-159 mg/dL: Borderline high 160-189 mg/dL: High >190 mg/dL: Very High CARDIAC RISK RATIO 2.1(L) 3.3 - 4.4 C [facility] Blood 12/25/2022 5:22 AM EDT 12/25/2022 6:22 AM EDT us Kayley Ribera NP LAB BLOOD ORDERABLES Fi nal Result [address] [address] * MAMMOGRAPHY FOR RESULT ENTRY ONLY (07/07/2022) us Agueda Ann MD HEALTH MAINTENANCE Edited Result - Final from Last 3 Months or Most Recently Relevant to Health Maintenance Insurance MEDICARE PART [place] [facility] [place] [facility] [place] & B [facility] MEDIC[facility] PART [place] & [place] B [facility] Advance Directives For more information, please contact: [phone] (9AM - 5PM [facility], Tuesday-Tuesday) Documents on File Type Date Recorded Patient Electroencephalographic Technologist Expl anation Healthcare Proxy 11/08/2022 6:36 PM [...] Code Status Confirmed With: Patient Care Teams Ice Guard Skating Rink Relationship Specialty Start Date End Date Agueda Ann MD [address] [place] [address] PCP - General Family Medicine 02/01/19 Andie Rossi MD 48 [place] [address] Neurology 03/02/19 West Doll MD [address] [place] [address] 104 [place] [address] Cardiology 03/02/19 Britany Coles MD [address] [place] [address] 140 [place] [address] [email or web address] 03/02/19 Naun Hoang MD [address] [address] Infectious Diseases 03/02/19 Additional Source Comments The information contained in this document represents components of the legal health record. It is not the complete legal health record.[facility]
--- OUTSIDE RECORDS SUMMARY | 2025-01-14 05:48 | XMS_ITS | Encounter Summary ---
Author Organization [facility] Address [address] [place] [address] Phone Care Team Providers Care Book Cutter Name Role Phone Agueda Ann MD Primary Care Provider [phone] Andie Rossi MD Unavailable West Doll MD Unavailable Britany Coles MD Unavailable Naun Hoang MD Unavailable + Agueda Ann MD Unavailable Latosha Garcia OT Unavailable [phone] Latosha Garcia OT Unavailable [phone] Mely Bhatti RN Unavailable [email or web address] Encounter Details Date Type Department Care Team (Late st Contact Info) Description 10/04/2019 Ancillary Orders [facility],Outside Imaging 30 [place] [address] System, Provider Not In, PhD Partners [address] [address] Social History Tobacco Use Types Packs/Day Years [...] documented as of this encounter Care Teams Book Cutter Relationship Specialty Start Date End Date Agueda Ann MD [address] [address] PCP - General Family Medicine 02/01/19 Andie Rossi MD 48 [place] [address] Neurology 03/02/19 West Doll MD [address] [place] [address] 104 [place] [address] Cardiology 03/02/19 Britany Coles MD [address] [place] [address] 140 [place] [phone] [email or web address] 03/02/19 [place] [address] [place] [address] Infectious Diseases 03/02/19 Agueda Ann MD [address] [address] [email or web address] Insurance Assigned Provider 07/02/23 04/02/24 Latosha Garcia, OT 30 [place] [address] [email or web address] Transitions Driver TraineeTransmission Line Engineer Therapy 11/05/22 11/07/22 Latosha Garcia, OT 30 [place] [address] [email or web address] Transitions Driver TraineeTransmission Line Engineer Therapy 11/24/22 11/25/22 Mely Bhatti, NICOLE 30 [place] [address] [email or web address] Driver Trainee 05/12/23 06/09/23 documented as of this encounter Additional Source Comments The information contained in this document represents components of the legal health record. It is not the complete legal health record.[facility]
--- OUTSIDE RECORDS SUMMARY | 2025-01-14 05:48 | XMS_ITS | Encounter Summary ---
Author Organization [facility] Address [address] [place] [address] Phone Care Team Providers Care Atmospheric Technician Name Role Phone Agueda Ann MD Primary Care Provider [phone] Andie Rossi MD Unavailable West Doll MD Unavailable Britany Coles MD Unavailable Naun Hoang MD Unavailable + Agueda Ann MD Unavailable Mely Bhatti RN Unavailable [email or web address] Encounter Details Date Type Department Care Team (Late st Contact Info) Description 12/24/2022 Procedure Pass [facility], [facility] 30 [place] [address] Social History Tobacco Use Types Packs/Day Years [...] high school, GED, job training, learning the Luxembourgish language, technical skills, or developing parenting skills)? [...] 12/24/2022 9:29 AM Natalya Menon, NICOLE * [place] Suicide Severity Rating Scale (Screener/Recent Self-Report) Question [...] documented as of this encounter Care Teams Atmospheric Technician Relationship Specialty Start Date End Date Agueda Ann MD [address] [address] [email or web address] PCP - General Family Medicine 02/01/19 Andie Rossi MD [address] [place] [address] Neurology 03/02/19 West Doll MD [address] [place] [address] 104 [place] [address] Cardiology 03/02/19 Britany Coles MD [address] [place] [address] 140 [place] [address] [email or web address] [email or web address] Surgery 03/02/19 Naun Hoang MD [address] [place] [address] Infectious Diseases 03/02/19 Agueda Ann MD [address] [address] [email or web address] Insurance Assigned Provider 4/6/24 1/6/25 Mely Bhatti, RN [address] [place] [address] [email or web address] 05/12/23 06/09/23 documented as of this encounter Additional Source Comments The information contained in this document represents components of the legal health record. It is not the complete legal health record.[facility]
--- OUTSIDE RECORDS SUMMARY | 2025-01-14 05:48 | XMS_ITS | Encounter Summary ---
Author Organization [facility] Address [address] [place] [address] Phone Care Team Providers Care Linux Network Systems Administrator Name Role Phone Agueda Ann MD Primary Care Provider [phone] Andie Rossi MD Unavailable [phone] West Doll MD Unavailable Britany Coles MD Unavailable Naun Hoang MD Unavailable + Agueda Ann MD Unavailable Latosha Garcia OT Unavailable Latosha Garcia OT Unavailable [phone] Mely Bhatti RN Unavailable [email or web address] Encounter Details Date Type Department Care Team (Late st Contact Info) Description 11/04/2022 Procedure Pass [facility] 30 [place] [address] Social History Tobacco Use Types Packs/Day Years [...] 11/04/2022 1:06 AM Lucita Hirsch, NICOLE * [place] Suicide Severity Rating Scale (Screener/Recent Self-Report) Question [...] documented as of this encounter Care Teams Linux Network Systems Administrator Relationship Specialty Start Date End Date Agueda Ann MD [address] [address] [email or web address] PCP - General Family Medicine 02/01/19 Andie Rossi MD [address] [place] [address] Neurology 03/02/19 West Doll MD [address] [place] [address] 104 [place] [address] Cardiology 03/02/19 Britany Coles MD [address] [place] [address] 140 [place] [phone] [email or web address] [email or web address] Surgery 03/02/19 Naun Hoang MD [address] [place] [address] Infectious Diseases 03/02/19 Agueda Ann MD [address] [address] [email or web address] Insurance Assigned Provider 07/02/23 04/02/24 Latosha Garcia, OT 30 [place] [address] [email or web address] Transitions Collating Machine OperatorWarp Placer Therapy 11/05/22 11/07/22 Latosha Garcia, OT 30 [place] [address] [email or web address] Transitions Collating Machine OperatorWarp Placer Therapy 11/24/22 11/25/22 Mely Bhatti RN 30 [place] [address] [email or web address] Collating Machine Operator 05/12/23 06/09/23 documented as of this encounter Additional Source Comments The information contained in this document represents components of the legal health record. It is not the complete legal health record.[facility]
--- OUTSIDE RECORDS SUMMARY | 2025-01-14 05:48 | XMS_ITS | Encounter Summary ---
Author Organization [facility] Address [address] [place] [address] Phone Care Team Providers Care Front Desk Lead Name Role Phone Agueda Ann MD Primary Care Provider [phone] Andie Rossi MD Unavailable [phone] West Doll MD Unavailable Britany Coles MD Unavailable [phone] Naun Hoang MD Unavailable + Agueda nAn MD Unavailable Latosha Garcia OT Unavailable Latosha Garcia OT Unavailable [phone] Mely Bhatti RN Unavailable [email or web address] Encounter Details Date Type Department Care Team (Late st Contact Info) Description 07/31/2021 Procedure Pass [facility] Endoscopy Admitting Dept Virtual Department 30 [place] [address] Social History Tobacco Use Types Packs/Day Years [...] of this encounter Care Teams Front Desk Lead Relationship Specialty Start Date End Date Agueda Ann MD [address] [place] [address] PCP - General Family Medicine 02/01/19 Andie Rossi MD [address] [place] [address] Neurology 03/02/19 West Doll MD [address] [place] [address] Cardiology 03/02/19 Britany Coles MD 175 [facility] 140 [place] [phone] Orthopedic Surgery 03/02/19 Naun Hoang MD 3300 [facility] [address] [place] [address] Infectious Diseases 03/02/19 Agueda Ann MD [address] [address] [email or web address] Insurance Assigned Provider 07/02/23 04/02/24 Latosha Garcia, OT 30 [place] [address] [email or web address] Transitions Icu ClerkMarble Carver Therapy 11/05/22 11/07/22 Latosha Garcia, OT 30 [place] [address] [email or web address] Transitions Icu ClerkMarble Carver Therapy 11/24/22 11/25/22 Mely Bhatti RN 30 [place] [address] [email or web address] Icu Clerk 05/12/23 06/09/23 documented as of this encounter Additional Source Comments The information contained in this document represents components of the legal health record. It is not the complete legal health record.[facility]
--- OUTSIDE RECORDS SUMMARY | 2025-01-14 05:48 | XMS_ITS | Encounter Summary ---
Author Organization [facility] Address [address] [place] [address] Phone Care Team Providers Care Quality Control Scientist Name Role Phone Agueda Ann MD Primary Care Provider Andie Rossi MD Unavailable West Doll MD Unavailable [phone] Britany Coles MD Unavailable Naun Hoang MD Unavailable + Agueda Ann MD Unavailable Latosha Garcia OT Unavailable Mely Bhatti RN Unavailable [email or web address] Encounter Details Date Type Department Care Team (Late st Contact Info) Description 11/18/2022 Procedure Pass [facility]ventional [facility] 30 [place] [address] Social History Tobacco Use Types Packs/Day Years [...] documented as of this encounter Care Teams Quality Control Scientist Relationship Specialty Start Date End Date Agueda Ann MD [address] [place] [address] PCP - General Family Medicine 02/01/19 Andie Rossi MD 48 [place] [address] Neurology 03/02/19 West Doll MD [address] [place] [address] 104 [place] [address] Cardiology 03/02/19 Britany Coles MD 175 [facility] 140 [place] [phone] [email or web address] [email or web address] Surgery 03/02/19 [place] [address] [place] [address] Infectious Diseases 03/02/19 Agueda Ann MD [address] [address] [email or web address] Insurance Assigned Provider 07/02/23 04/02/24 Latosha Garcia, OT 30 [place] [address] [email or web address] Transitions Rooming House InspectorHorologist Apprentice Therapy 11/24/22 11/25/22 Mely Bhatti, NICOLE 30 [place] [address] [email or web address] PHCM Rooming House Inspector 05/12/23 06/09/23 documented as of this encounter Additional Source Comments The information contained in this document represents components of the legal health record. It is not the complete legal health record.[facility]
--- OUTSIDE RECORDS SUMMARY | 2025-01-14 05:48 | XMS_ITS | Encounter Summary ---
Author Organization [facility] Address [address] [place] [address] Phone Care Team Providers Care Pipe Fittings Molder Name Role Phone Agueda Ann MD Primary Care Provider [phone] Andie Rossi MD Unavailable [phone] West Doll MD Unavailable [phone] Britany Coles MD Unavailable Naun Hoang MD Unavailable + Agueda Ann MD Unavailable Mely Bhatti RN Unavailable [email or web address] Encounter Details Date Type Department Care Team (Late st Contact Info) Description 12/24/2022 Procedure Pass [facility], [facility] 30 [place] [address] Social History Tobacco Use Types Packs/Day Years [...] 12/24/2022 9:29 AM Natalya Menon, NICOLE * [place] Suicide Severity Rating Scale (Screener/Recent Self-Report) Question [...] documented as of this encounter Care Teams Pipe Fittings Molder Relationship Specialty Start Date End Date Agueda Ann MD [address] [address] [email or web address] PCP - General Family Medicine 02/01/19 Andie Rossi MD [address] [place] [address] Neurology 03/02/19 West Doll MD [address] [place] [address] 104 [place] [address] Cardiology 03/02/19 Britany Coles MD [address] [place] [address] 140 [place] [phone] [email or web address] Orthopedic Surgery 03/02/19 Naun Hoang MD [address] [place] [address] Infectious Diseases 03/02/19 Agueda Ann MD [address] [address] [email or web address] Insurance Assigned Provider 4/6/24 1/6/25 Mely Bhatti, RN [address] [place] [address] [email or web address] Coordinator 05/12/23 06/09/23 documented as of this encounter Additional Source Comments The information contained in this document represents components of the legal health record. It is not the complete legal health record.[facility]
--- OUTSIDE RECORDS SUMMARY | 2025-01-14 05:48 | XMS_ITS | Encounter Summary ---
Author Organization [facility] Address [address] [place] [address] Phone Care Team Providers Care Design Maintenance Engineer Name Role Phone Agueda Ann MD Primary Care Provider [phone] Andie Rossi MD Unavailable [phone] West Doll MD Unavailable [phone] Britany Coles MD Unavailable [phone] Naun Hoang MD Unavailable + Agueda Ann MD Unavailable Mely Bhatti RN Unavailable [email or web address] Encounter Details Date Type Department Care Team (Late st Contact Info) Description 12/25/2022 Procedure Pass [facility] [address] [place] [address] Social History Tobacco Use Types Packs/Day Years [...] documented as of this encounter Care Teams Design Maintenance Engineer Relationship Specialty Start Date End Date Agueda Ann MD [address] [place] [address] PCP - General Family Medicine 02/01/19 Andie Rossi MD 48 [place] [address] Neurology 03/02/19 West Doll MD [address] [place] [address] 104 [place] [address] Cardiology 03/02/19 Britany Coles MD [address] [place] [address] 140 [place] [phone] Orthopedic Surgery 03/02/19 [place] [address] [place] [address] Infectious Diseases 03/02/19 Agueda Ann MD [address] [address] [email or web address] Insurance Assigned Provider 07/02/23 04/02/24 Mely Bhatti RN [address] [address] [email or web address] PHCM Indigo Mixer 05/12/23 06/09/23 documented as of this encounter Additional Source Comments The information contained in this document represents components of the legal health record. It is not the complete legal health record.[facility]
--- OUTSIDE RECORDS SUMMARY | 2025-01-14 05:48 | XMS_ITS | Encounter Summary ---
Author Organization [facility] Address [address] [place] [address] Phone Care Team Providers Care Quantitative Analyst Developer Name Role Phone Agueda Ann MD Primary Care Provider [phone] Andie Rossi MD Unavailable West Doll MD Unavailable [phone] Britany Coles MD Unavailable Naun Hoang MD Unavailable + Agueda Ann MD Unavailable Mely Bhatti RN Unavailable [email or web address] Encounter Details Date Type Department Care Team (Late st Contact Info) Description 12/24/2022 Procedure Pass [facility], [facility] 30 [place] [address] Social History Tobacco Use Types Packs/Day Years [...] high school, GED, job training, learning the Korean language, technical skills, or developing parenting skills)? [...] 12/24/2022 9:29 AM Natalya Menon, NICOLE * [place] Suicide Severity Rating Scale (Screener/Recent Self-Report) Question [...] documented as of this encounter Care Teams Quantitative Analyst Developer Relationship Specialty Start Date End Date Agueda Ann MD [address] [address] [email or web address] PCP - General Family Medicine 02/01/19 Andie Rossi MD [address] [place] [address] Neurology 03/02/19 West Doll MD [address] [place] [address] 104 [place] [address] Cardiology 03/02/19 Britany Coles MD [address] [place] [address] 140 [place] [phone] [email or web address] [email or web address] Surgery 03/02/19 Naun Hoang MD [address] [place] [address] Infectious Diseases 03/02/19 Agueda Ann MD [address] [address] [email or web address] Insurance Assigned Provider 4/6/24 1/6/25 Mely Bhatti, RN [address] [place] [address] [email or web address] Former Supervisor 05/12/23 06/09/23 documented as of this encounter Additional Source Comments The information contained in this document represents components of the legal health record. It is not the complete legal health record.[facility]
--- OUTSIDE RECORDS SUMMARY | 2025-01-14 05:48 | XMS_ITS | Encounter Summary ---
Author Organization [facility] Address [address] [place] [address] Phone Care Team Providers Care Chief Drafter Name Role Phone Agueda Ann MD Primary Care Provider [phone] Andie Rossi MD Unavailable West Doll MD Unavailable Britany Coles MD Unavailable [phone] Naun Hoang MD Unavailable + Agueda Ann MD Unavailable Mely Bhatti RN Unavailable [email or web address] Encounter Details Date Type Department Care Team (Late st Contact Info) Description 12/24/2022 Procedure Pass [facility], Ct Scan - [facility] [address] [place] [address] Social History Tobacco Use Types Packs/Day Years [...] high school, GED, job training, learning the American language, technical skills, or developing parenting skills)? [...] 9:29 AM ALEKT Natalya Delgadillo RN * [place]ner Suicide Severity Rating Scale (Screener/Recent Self-Report) Question [...] documented as of this encounter Care Teams Chief Drafter Relationship Specialty Start Date End Date Agueda Ann MD [address] [address] [email or web address] PCP - General Family Medicine 02/01/19 Andie Rossi MD [address] [place] [address] Neurology 03/02/19 West Doll MD [address] [place] [address] 104 [place] [address] Cardiology 03/02/19 Britany Coles MD [address] [place] [address] [address] [place] [phone] [email or web address] Surgery 03/02/19 Naun Hoang MD [address] [place] [address] Infectious Diseases 03/02/19 Agueda Ann MD [address] [address] [email or web address] Insurance Assigned Provider 07/02/23 04/02/24 Mely Bhatti, NICOLE [address] [address] [email or web address] Family Engagement Specialist 05/12/23 06/09/23 documented as of this encounter Additional Source Comments The information contained in this document represents components of the legal health record. It is not the complete legal health record.[facility]
[2025-01-14 07:03] LABS: Hematocrit 27.1 % (37.0-47.0); Hemoglobin 8.4 g/dl (12.0-16.0); Imm Gran Abs Auto 0.04 X10*3/uL (0.00-0.03); Imm Gran Pct Auto 0.5 % (0.0-0.4); Lymphocytes Absolute Auto 2.3 X10*3/uL (1.2-4.9); Mean Corpuscular HGB Conc 31.0 g/dl (31.0-35.0); Mean Corpuscular Hemoglobin 26.3 pg (27.0-33.0); Mean Corpuscular Volume 85.0 fL (80.0-98.0); NRBC Abs Auto 0.000 X10*3/uL (0.0-0.012); NRBC Pct Auto 0.0 /100WBC (0.0-0.2); Platelet Count 323 X10*3/uL (160-400); Red Blood Count 3.19 X10*6/uL (4.20-5.50); White Blood Count 8.4 X10*3/uL (4.8-10.8)
[2025-01-14 07:22] LABS: Anion Gap 16 (12-20); Blood Urea Nitrogen 55 mg/dL (9-16); Calcium 8.8 mg/dL (8.4-10.2); Carbon Dioxide 19 mmol/L (22-29); Chloride 108 mmol/L (96-108); Estimated Glomerular Filt Rate 29; Potassium 4.6 mmol/L (3.3-5.1); Sodium 138 mmol/L (135-145)
== END 2025-01-14 05:44 | disposition home or self-care (01) ==
LOC: HO.MMNH3L 05:43
PROVIDERS: Visit Provider Student in an Organized Health Care Education/Training Program
DX: I69.398 Other sequelae of cerebral infarction (principal); I25.9 Chronic ischemic heart disease, unspecified; E03.9 Hypothyroidism, unspecified; Z89.611 Acquired absence of right leg above knee
CPT/HCPCS: 36415; 80048; 85025

== ENCOUNTER 2025-01-18 05:31 | Outpatient (REF) | payer MEDICARE, MEDICAID, SELFPAY ==
--- OUTSIDE RECORDS SUMMARY | 2025-01-18 05:33 | XMS_ITS | Clinical Summary ---
Author Organization [facility] it Address [address] [place] [address] Care Team Providers Care Traffic Warehouse Supervisor Name Role Phone Unavailable Primary Care Provider Unavailabl e Immunizations Immunization Administration Dates Next Due Pfizer SARS-CoV-2 COVID-19, mRNA, LNP-S, preservative free 07/02/2020,06/07/2020 Surgical History Surgery Date Site/Laterality Comments NECK SURGERY PROCEDURE: HISTORICAL NECK SURGERY; COMMENT: spinal stenosis TONSILLECTOMY PROCEDURE: HISTORICAL TONSILLECTOMY CHOLECYSTECTOMY 09/1989 PROCEDURE: HISTORICAL CHOLECYSTECTOMY BREAST REDUCTION PROCEDURE: LA BREAST REDUCTION ROBOTIC ASSISTED HYSTERECTOMY 03/05/14 PROCEDURE: [...]
--- OUTSIDE RECORDS SUMMARY | 2025-01-18 05:34 | XMS_ITS | Encounter Summary ---
Author Organization [facility] Address [address] [place] [address] Phone Care Team Providers Care Supervisor [place]alt [place] Name Role Phone Agueda Ann MD Primary Care Provider [phone] Andie Rossi MD Unavailable [phone] West Doll MD Unavailable [phone] Britany Coles MD Unavailable [phone] Naun Hoang MD Unavailable + Agueda Ann MD Unavailable Mely Bhatti RN Unavailable [email or web address] Encounter Details Date Type Department Care Team (Late st Contact Info) Description 12/25/2022 Procedure Pass [facility] [address] [place] [address] Social History Tobacco Use Types Packs/Day Years [...] is your housing situation today? I have nazairo sing 01/25/2022 How many times have you [...] as of this encounter Care Teams Supervisor Malt [place] Relationship Specialty Start Date End Date Agueda Ann MD [address] [place] [address] [email or web address] PCP - General Family Medicine 02/01/19 Andie Rossi MD [address] [place] [address] Neurology 03/02/19 West Doll MD [address] [place] [address] 104 [place] [address] Cardiology 03/02/19 Britany Coles MD [address] [place] [address] 140 [place] [phone] Orthopedic Surgery 03/02/19 [place] [address] [place] [address] Infectious Diseases 03/02/19 Agueda Ann MD [address] [address] [email or web address] Insurance Assigned Provider 07/02/23 04/02/24 Mely Bhatti RN [address] [address] [email or web address] PHCM Video Production Specialist 05/12/23 06/09/23 documented as of this encounter Additional Source Comments The information contained in this document represents components of the legal health record. It is not the complete legal health record.[facility]
--- OUTSIDE RECORDS SUMMARY | 2025-01-18 05:34 | XMS_ITS | Clinical Summary ---
Author Organization [facility] Address [address] [place] [address] Phone Care Team Providers Care Vulcanizer Operator Name Role Phone Agueda Ann MD Primary Care Provider [phone] Andie Rossi MD Unavailable [phone] West Doll MD Unavailable [phone] Britany Coles MD Unavailable Naun Hoang MD [...] mouth daily. 4 Active neomycin/bacitra negrito/polymyxinB (NEOSPORIN, JXN-SIR-XPTRD, TP) Apply 1 Application topically 2 (two) [...] 20 MG tabletIndication s:Coronary artery disease involving [place] heart without angina pectoris, unspecified vessel or [...] an echo, and follow-up with her own roller embosser who is at [facility]. Acquired hypothyroidism 09/04/2020 Assessment & Plan (12/26/2022 [...] like to little and she is established [facility] weight management so I like her to see the geoscience technician there she understands and agrees this plan Assessment & Plan (05/17/2019 12:35 PM EST): She is working out, tracking her caloric intake and sticking to nutrition plan although she is under eating. No clear etiology for her weight gain. Start taking levothyroxine separately from the other medications. Check labs today. Make follow-up with geoscience technician CAD (coronary artery disease) 03/02/2019 Overview (03/02/2019): h/o stent Assessment & Plan (12/26/2022 3:02 PM EDT): No active cp or acute concern -Continue cardiac care nurse -Continue aspirin, atorvastatin, Plavix, and Zetia Is [...] and chronic pain. Certainly would benefit from EXPORT SALES ASSISTANT services and I have discussed with pt [...] pt can establish with someone new at [facility]. Assessment & Plan (01/21/2021 12:34 PM EDT): [...] and gait. She will be going to [facility] physical medicine and rehabilitation in [place] for this. IgG monoclonal gammopathy Assessment & Plan (03/02/2019 12:15 PM EST): Patient denies ever seeing hematology, has never heard this diagnosis and does not think that she has this. As I do not have records it is difficult for me to understand where this came from. I would like to review her [facility] records and if necessary we will do [...] appt for Neuro muscular in Dec at [facility]). No further pain. F/u as needed Assessment [...] this topic Medical Devices Implanted Type Area Curriculum Supervisor Device Identifier Shelf Expiration Date Model / Serial / Lot Stent Supera 6fr 5.5mm 120mm 120cm .014in Otw Vascular Peripheral Nitinol Self Expanding Closed End Braided - [id number] Implanted:Qty: 1 on 11/18/2022 by David Mendez MD at [facility] Stent [facility] 04/27/2024 [id number] / / [id number] Cardiac Stent Neck Hardware Procedures Procedure Name [...] EST) SODIUM 137 133 - 146 mmol/L [facility] CHLORIDE 101 96 - 108 mmol/L [facility] POTASSIUM 4.1 3.3 - 5.1 mmol/L [facility] CO2 24 21 - 35 mmol/L [facility] BUN 27(H) 6 - 19 mg/dL [facility] CREATININE 0.50 0.5 - 1.5 mg/dL [facility] GLUCOSE 103(H) 70 - 99 mg/dL [facility] CALCIUM 9.0 8.4 - 10.3 mg/dL [facility] EGFR 103 >59 mL/min/1.7 3m2 [facility] Comment:Estimated glomerular filtration rate calculated using the CKD-EPI refit equation. ANION GAP 16 10 - 20 mmol/L [facility] Blood 05/23/2023 4:12 PM EST 05/23/2023 4:32 PM EST Mely Padron PA-C LAB BLOOD ORDERABLES Final R esult [address] [address] * (ABNORMAL) TSH with reflex (01/13/2023 7:58 AM EDT) TSH 0.03(L) 0.27 - 4.20 uIU/mL [facility] Blood 01/13/2023 7:58 AM EDT 01/13/2023 8:03 AM EDT Agueda Ann MD LAB BLOOD ORDERABLES Final Resul t Performing Organization Address City/[facility]/ZIP Co de Phone Number [address] [address] * (ABNORMAL) Lipid panel (12/25/2022 5:22 AM EDT) HDL 46 mg/dL [facility] Comment: Interpretation <40 mg/dL: Low HDL cholesterol (major risk factor for CHD) Greater than or equal to 60 mg/dL: High HDL cholesterol ( negative risk factor for CHD) HDL - cholesterol is affected by a number of factors, e.g. smoking, excerise, hormones, sex and age. CHOLESTEROL 98 0 - 240 mg/dL [facility] TRIGLYCERIDES 86 30 - 160 mg/dL [facility] LDL 35(L) 50 - 129 mg/dL [facility] Comment: LDL levels in terms of risk for coronary heart disease: <100 mg/dL: Optimal 100-129 mg/dL: Near or above optimal 130-159 mg/dL: Borderline high 160-189 mg/dL: High >190 mg/dL: Very High CARDIAC RISK RATIO 2.1(L) 3.3 - 4.4 C [facility] Blood 12/25/2022 5:22 AM EDT 12/25/2022 6:22 AM EDT us Kayley Ribera NP LAB BLOOD ORDERABLES Fi nal Result [address] [address] * MAMMOGRAPHY FOR RESULT ENTRY ONLY (07/07/2022) us Agueda Ann MD HEALTH MAINTENANCE Edited Result - Final from Last 3 Months or Most Recently Relevant to Health Maintenance Insurance MEDICARE PART [place] [facility] [place] [facility] [place] & B [facility] MEDICARE PART A & [place] & B [facility] Advance Directives For more information, please contact: [phone] (9AM - 5PM [facility], Tuesday-Tuesday) Documents on File Type Date Recorded Patient Tool Dispatcher Expl anation Healthcare Proxy 11/08/2022 6:36 PM [...] Code Status Confirmed With: Patient Care Teams Vulcanizer Operator Relationship Specialty Start Date End Date Agueda Ann MD [address] [place] [address] PCP - General Family Medicine 02/01/19 Andie Rossi MD [address] [place] [address] Neurology 03/02/19 West Doll MD [address] [place] [address] 104 [place] [address] Cardiology 03/02/19 Britany Coles MD [address] [place] [address] 140 [place] [address] [email or web address] Orthopedic Surgery 03/02/19 Naun Hoang MD [address] [address] Infectious Diseases 03/02/19 Additional Source Comments The information contained in this document represents components of the legal health record. It is not the complete legal health record.[facility]
--- OUTSIDE RECORDS SUMMARY | 2025-01-18 05:34 | XMS_ITS | Encounter Summary ---
Author Organization [facility] Address [address] [place] [address] Phone Care Team Providers Care Surfacer Operator Name Role Phone Agueda Ann MD Primary Care Provider [phone] Andie Rossi MD Unavailable [phone] West Doll MD Unavailable [phone] Britany Coles MD Unavailable [phone] Naun Hoang MD Unavailable + Agueda Ann MD Unavailable Mely Bhatti RN Unavailable [email or web address] Encounter Details Date Type Department Care Team (Late st Contact Info) Description 12/25/2022 Procedure Pass Non-Invasive Cardiology [address] [place] [address] Social History Tobacco Use Types Packs/Day Years [...] high school, GED, job training, learning the [place] language, technical skills, or developing parenting skills)? [...] documented as of this encounter Care Teams Surfacer Operator Relationship Specialty Start Date End Date Agueda Ann MD [address] [place] [address] [email or web address] PCP - General Family Medicine 02/01/19 Andie Rossi MD [address] [place] [address] Neurology 03/02/19 West Doll MD [address] [place] [address] 104 [place] [address] Cardiology 03/02/19 Britany Coles MD [address] [place] [address] 140 [place] [phone] [email or web address] Orthopedic Surgery 03/02/19 [place] [address] [place] [address] Infectious Diseases 03/02/19 Agueda Ann MD [address] [address] [email or web address] Insurance Assigned Provider 07/02/23 04/02/24 Mely Bhatti RN [address] [address] [email or web address] PHCM Net Ui Developer 05/12/23 06/09/23 documented as of this encounter Additional Source Comments The information contained in this document represents components of the legal health record. It is not the complete legal health record.[facility]
--- OUTSIDE RECORDS SUMMARY | 2025-01-18 05:34 | XMS_ITS | Data Portability ---
Author Organization [facility], Main Office Address [address] [address] [address] [place] [address] Care Team Providers Care Bacon Skinner Name Role Phone VINI DOWLING 1ST FLOOR OTHER [phone] BEBE GUTIERREZ Primary Care Provider Assessment Encounter [...] Address Organization Details Recorded Time Diabetes mellitus 87415777 Active 2023 MIRI NORTON [address] [facility], [address], [place], [address], [facility] 4 20:18:04 Essential hypertensio n 92461622 Active 2023 MIRI NORTON [address] [facility], [address], [place], [address], [facility] 4 20:18:10 Hyperlipide reinier 69535756 Active 2023 MIRI NORTON [address] [place] [address], [address], [place], [address], [facility] 4 20:18:16 Femoral-pop liteal artery bypass graft Completed 202309/01/2023 MIRI NORTON [address] [place] [address], [address], [place], [address], [facility] 4 22:16:23 Anemia 517268950 Active 2023 MIRI NORTON [address] [place] [address], [address], [place], [address], [facility] 4 20:20:45 Cerebrovasc ular accident 573028876 Active 2023 MIRI NORTON [address] [place] [address], [address], [place], [address], [facility] 4 20:21:06 Femoro-ante rior tibial bypass graft Completed 202309/01/2023 MIRI NORTON [address] [place] [address], [address], [place], [address], [facility] 4 22:16:23 Chronic kidney disease stage 3 169504292 Active 2023 MIRI NORTON [address] [place] [address], [address], [place], [address], [facility] 4 20:28:49 Peripheral vascular disease 343098032 Active 2023 MIRI ON[address]ON [address] [place] [address], [address], [place], [address], [place] [facility] 20:29:56 Asthenia 02624279 Active 2023 PÉREZ LUNDBERG, MIRI [address], [address], [place], [address], [facility] 20:30:45 Insomnia 122623961 Active 2023 PÉREZ LUNDBERG, MIRI [address], [address], [place], [address], [facility] 4 21:49:49 Constipatio n 43842369 Active [address]ON [address], [address], [place], [address], [facility] 4 21:52:14 Acute kidney injury 24350070 Active [address]ON [address], [address], [place], [address], [facility] 4 21:56:55 Hypocalcemi a 3656980 Completed 202309/01/[address]ON [address], [address], [place], [address], [facility] 4 22:16:23 Myasthenia gravis 90721595 Active [address]ON [address], [address], [place], [address], [facility] 4 22:10:42 Aphasia 39567829 Completed 202309/01/[address]ON [address], [address], [place], [address], [facility] 4 22:16:23 Vascular dementia 860735240 Active [address]ON [address], [address], [place], [address], [facility] 4 13:06:33 Amputated below knee 937566520 Active [address]ON [address], [address], [place], [address], [facility] 4 16:38:11 Delirium 0056424 Active [address]ON [address], [address], [place], [address], [facility] 4 16:54:43 Dysphagia 88154450 Active [address], [address], [place], [address], [facility] 4 16:55:09 Toxic encephalopa thy 88293186 Active 2023 JOHN NORTONP [address] [facility], [address], [place], [address], [facility] 4 16:55:43 Hypothyroid ism 13456206 Active 2023 JOHN NORTONP [address] [facility], [address], [place], [address], [facility] 4 22:18:37 Anxiety 22278253 Active [address] [facility] [address] [facility], [address], [place], [address], [facility] 4 22:24:04 Carotid artery stenosis 13539899 Active 2023 MIRI NORTON [address] [facility], [address], [place], [address], [facility] 4 12:10:00 Problem Notes None [...] 97 % 118/68 mm[Hg] MIRI NORTON [address] [facility], [address], [place], [address], [facility] 4 14:16:49 Date Recorded Body height Heart rate Respiratory rate Body temperature Oxygen saturation Oxygen saturation in Arterial blood by Pulse oximetry Systolic And Diastolic Provider Name and Address Organization Details Last Updated DateTime 4 165.1 cm 73 /min 18 /min 98 [degF] 94 % 94 % 111/76 mm[Hg] MIRI NORTON [address] [facility], [facility] [address], [place], [address], [facility] 4 11:35:13 Date Recorded Body height Respiratory rate Body temperature Oxygen saturation Oxygen saturation in Arterial blood by Pulse oximetry Heart rate Systolic And Diastolic Provider Name and Address Organization Details Last Updated DateTime 4 165.1 cm 18 /min 98 [degF] 94 % 94 % 68 /min 118/71 mm[Hg] MIRI NORTON [address] [facility], [address], [place], [address], [facility] 4 16:01:39 Date Recorded Body height Body mass index (BMI) Body weight Heart rate Respiratory rate Body temperature Oxygen saturation Oxygen saturation in Arterial blood by Pulse oximetry Systolic And Diastolic Provider Name and Address Organization Details Last Updated DateTime 4 165.1 cm 28.6 kg/m2 40626.8 9 g 73 /min 16 /min 98.4 [degF] 100 % 100 % 135/68 mm[Hg] MIRI NORTON [address] [facility], [address], [place], [address], [facility] 4 15:14:16 Social History Question Answer Notes LastModified by Organizat ion Details LastModified Time Tobacco Smoking Status Never Smoker MIRI NORTON [address] [facility], [address], [place], [address], [facility] [address] 06/30/2023 02:31:25 Do You Have An Advance [...] Do You Have A Medical Power Of Fraud Prevention Analyst? Yes Information not available 07/22/2023 What Was [...] Time Tdap 9 completed Elle [place] null, [facility] 07/01/2023 13:25:18 Tdap 8 completed Elle [place] null, [facility] 07/01/2023 13:25:33 Pneumococcal conjugate PCV20, polysaccharide [id number] conjugate, adjuvant, PF 2 completed Elle [facility], [facility] 07/01/2023 13:25:55 pneumococcal polysaccharide PPV23 4 completed Elle [place] null, [facility] 07/01/2023 13:26:09 pneumococcal polysaccharide PPV23 7 completed Elle South [facility] 07/01/2023 13:26:18 influenza, unspecified formulation 2 completed Elle South [facility] 07/01/2023 13:26:47 influenza, unspecified formulation 3 completed Elle [facility], [facility] 07/01/2023 13:26:55 SARS-COV-2 (COVID-19) vaccine, UNSPECIFIED 1 completed Elle Brannon [facility] 07/01/2023 13:27:17 SARS-COV-2 (COVID-19) vaccine, UNSPECIFIED 1 completed Elle Brannon [facility] 07/01/2023 13:27:40 SARS-COV-2 (COVID-19) vaccine, UNSPECIFIED 1 completed Elle [facility]annon [facility], [facility] 07/01/2023 13:27:55 SARS-COV-2 (COVID-19) vaccine, UNSPECIFIED 2 [facility] 13:28:04 SARS-COV-2 (COVID-19) vaccine, UNSPECIFIED 2 [facility] 13:28:24 SARS-COV-2 (COVID-19) vaccine, UNSPECIFIED 3 completed Elle Brannon [facility] 07/01/2023 13:28:37 zoster, unspecified formulation 9 completed Elle [place] [facility] 07/01/2023 13:29:06 zoster, unspecified formulation 9 completed Elle South [facility] 07/01/2023 13:29:21 Past Encounters Encounter ID Performer Location Encounter Start Date Encounter Closed Date Diagnosis/Indication Diagnosis SNOMED-CT Code Diagnosis ICD10 Code Diagnosis IMO Codes Diagnosis Note [id number] MIRI NORTON [address] [facility] [address] [place] [address] 06/29/2023 15:34:40 07/22/2023 14:35:38 Peripheral vascular disease 033979583 I73.9 s/p right femoral endarterec bridget with [...] rightfollo w up with vascular 06/29 Asthenia 52881733 R53.1 hx of myasthenia gravisPT/O T eval and treat Diabetes mellitus 612433 09 E11.9 A1c 5.7 on 06/23hospit al records indicate that she states she is taking for constipati on, she is not sure she is a diabetic.c ontinue metformin 500 mg BIDcontinu e to monitor FSfollow-u p with PCP after discharge for further management Essential hypertension 35083930 I10 continue lisinopril 5 mg dailyconti nue metoprolol 50 mg bidfurosem oxana 40 mg dailymonit or BP /labs Hyperlipidemia 48751503 E78.5 atorvastat in 40 mg dailymonit or lipids prn Insomnia 415153141 G47.0 0 continue melatonin 9 mg hscontinue trazadone 12.5 mg hs prn Constipation 28323636 K5 9.00 continue colace 100 mg bidcontinu e miralax 17 gm dailyincre ase oral hydration Anemia 670352037 D64.9 continue ferrous sulfate 325 mg dailymonit or CBCH&H stable at 7.9/25.1 Hypocalcemia 1055709 E83 .51 continue calcium carbonate 500 mg dailyconti nue cholecalci ferol 1000 u daily Myasthenia gravis 474933 04 G70.00 carrying dxmaintain safety/pre cautionsno t on medication Cerebrovas cular accident 460239939 I63.9 carrying dx Chronic ki dney disease stage 3 073670907 N18.30 mahi resolved in acute careavoid nephrotoxi c medication smonitor labs [id number] [facility] [address] [place] [address] 06/30/2023 11:39:21 07/04/2023 14:42:16 Bleeding from nose 870459515 R04.0 uncontroll ed bleeding from right narespt is on multiple anticoag( asa, eliquis and plavix) held this morning.wi ll send to ED for eval and tx. [id number] MIRI NORTON [address] [place] [address] 07/12/2023 11:03:46 07/19/2023 11:10:58 Open wound of right foot 2623874192 6648709 S91.301A dorsal right foot with wound vacDo Not remove wound vac, she has appt with vascular on 07/13 Surgical i ncision wound of skin 6838393897 00 R23.8 right lateral mid thigh with 22 nehemias right low leg corral 12 staple right lower extremity medial thigh wound with packing Peripheral vascular disease 478417782 I73.9 s/p right femoral endarterec bridget with [...] rightfollo w up with vascular 06/29 Asthenia 46739863 R53.1 hx of myasthenia gravisPT/O T eval and treat Diabetes mellitus 803676 09 E11.9 A1c 5.7 on 06/23hospit al records indicate that she states she is taking for constipati on, she is not sure she is a diabetic.c ontinue metformin 500 mg BIDcontinu e to monitor FSfollow-u p with PCP after discharge for further management Essential hypertension 24228959 I10 continue lisinopril 5 mg dailyconti nue metoprolol 50 mg bidfurosem oxana 40 mg dailymonit or BP /labs Hyperlipidemia 57698260 E78.5 atorvastat in 40 mg dailymonit or lipids prn Insomnia 247040245 G47.0 0 continue melatonin 9 mg hscontinue trazadone 12.5 mg hs prn Constipation 06249587 K5 9.00 continue colace 100 mg bidcontinu e miralax 17 gm dailyincre ase oral hydration Anemia 490001839 D64.9 baseline 7.9-8decre ased to 7.0 due to epistaxiss he was transfused 2 PRBCsconti nue ferrous sulfate 325 mg dailymonit or CBC Hypocalcemia 8016179 E83 .51 continue calcium carbonate 500 mg dailyconti nue cholecalci ferol 1000 u daily Myasthenia gravis 152814 04 G70.00 carrying dxmaintain safety/pre cautionsno t on medication Cerebrovas cular accident 303127663 I63.9 carrying dx Chronic ki dney disease stage 3 795680493 N18.30 mahi resolved in acute careavoid nephrotoxi c medication smonitor labs Aphasia 58313105 R47.01 hx of CVAIntermi ttent aphasia/Wo rd finding difficulty no new stroke seen on brain MRI.Suspec t vascular dementia, may have some hypoperfus ion given her anemia. [id number] MIRI NORTON [address] [place] [address] rd [place] [address] 07/18/2023 10:15:58 07/22/2023 15:25:22 Open wound of right foot 6202070958 4452180 S91.301A s/p wound debridemen t 07/13, will be returning to vascular 07/19 for integra placement and wound vac Surgical i ncision wound of skin 4053277883 00 R23.8 right lateral mid thigh with 22 staplesrig ht low leg corral 12 staplerigh t lower extremity medial thigh wound with packingnur sing to removed on 07/18 ord placed in psychiatric Peripheral vascular disease 836776362 I73.9 s/p right femoral endarterec bridget with [...] 6 prncontinu e lidocaine patch right Asthenia 98369409 R53.1 hx of myasthenia gravisPT/O T eval and treat Diabetes mellitus 875190 09 E11.9 A1c 5.7 on 06/23hospit al records indicate that she states she is taking for constipati on, she is not sure she is a diabetic.c ontinue metformin 500 mg BIDcontinu e to monitor FSfollow-u p with PCP after discharge for further management Essential hypertension 91731989 I10 continue lisinopril 5 mg dailyconti nue metoprolol 50 mg bidfurosem oxana 40 mg dailymonit or BP /labs Constipation 64701608 K5 9.00 continue colace 100 mg bidcontinu e miralax 17 gm dailyincre ase oral hydration Anemia 831260891 D64.9 baseline 7.9-8decre ased to 7.0 due to epistaxiss he was transfused 2 PRBCsconti nue ferrous sulfate 325 mg dailymonit or CBC Aphasia 20888058 R47.01 hx of CVAIntermi ttent aphasia/Wo rd finding difficulty no new stroke seen on brain MRI.Suspec t vascular dementia, may have some hypoperfus ion given her anemia. [id number] Afia Tierney MD [address] [place] [address] 07/22/2023 14:24:36 08/15/2023 12:08:31 Open wound of right foot 2377580080 1189926 S91.301A Continue wound care as ordered.F/ U with surgeon as planned for further debridemen t and wound vac placement. Surgical i ncision wound of skin 1107148658 00 R23.8 Wounds healing well.Stale s removed. Peripheral vascular disease 318015425 I73.9 s/p right femoral endarterec bridget with [...] mg q 6 hrs prnMonitor sxs. Asthenia 01353259 R53.1 As above. Diabetes mellitus 365859 09 E11.9 HgA1C was 5.7 on 06/23All sugars <200 since here, so fingerstic ks d/c'd on 07/18Contin ue metformin 500 mg BIDMonitor fingerstic ks prn. Essential hypertension 53569208 I10 BP in good control on lisinopril 5 mg qd, metoprolol 50 mg BID, and furosemide 40 mg qdMonitor BP and labs. Constipation 54975550 K5 9.09 Continue bowel meds as ordered.Mo nitor bowel function. Anemia 323295113 D64.89 Multifacto rial.Galindo nue ferrous sulfate 325 mg qdMonitor CBC Aphasia 66043853 R47.01 As above. Hyperlipidemia 83585084 E78.49 Continue atorvastat in 40 mg qdMonitor lipids yearly Insomnia 176324130 G47.0 0 Continue melatonin 9 mg qhs and trazadone 12.5 mg qhs prnMonitor sleep patterns. Hypocalcemia 7028463 E83 .51 Doesn't have hypocalcem ia.Correct ed Ca+ os 9.08Likely is on Ca+ and vit D for osteopenia .Continue calcium carbonate 500 mg qd and cholecalci ferol 1000 IU qd. Myasthenia gravis 969353 04 G70.00 Carrying dxOn no meds at this time.Very deconditio kelsy.Needs PT/OT for strengthen ing, balance, gait training, safety and function.C ontinue fall precaution s.Monitor for safety. Cerebrovas cular accident 327815109 I63.89 With mod to severe aphasia.SL P eval and tx.Continu e meds as above.Prakash emory for new neuro sxs. Chronic ki dney disease stage 3 689656006 N18.32 At baseline.C ontinue to avoid nephrotoxi c meds as able.Monit or labs.Renal consult prn. Anxiety 95963025 F41.1 Very anxious tonight. Anxiety makes it even harder for her to get her words out.Will start lorazepam 0.5 mg q 6 hrs prn [id number] MIRI NORTON [address] [place] [address] [place] [address] 07/25/2023 12:45:25 07/26/2023 15:42:48 Open wound of right foot 4256788143 2187446 S91.301A 07/19: s/p wound debridemen tcontinue wound treatment as ordered.fo llow up with [facility] on 08/01 at 130 pm Surgical i ncision wound of skin 6761054743 00 R23.8 right lateral mid thigh - HEALING NEHEMIAS REMOVED IN ACUTE CAREright low leg corral healingrig ht lower extremity medial thigh wound with packing Peripheral vascular disease 648811518 I73.9 s/p right femoral endarterec bridget with [...] 6 prncontinu e lidocaine patch right Asthenia 31534852 R53.1 hx of myasthenia gravisPT/O T eval and treat Diabetes mellitus 938298 09 E11.9 continue metformin 500 mg BIDcontinu e to monitor FSfollow-u p with PCP after discharge for further management Essential hypertension 75604235 I10 continue lisinopril 5 mg dailyconti nue metoprolol 50 mg bidfurosem oxana 40 mg dailymonit or BP /labs Constipation 57481672 K5 9.00 continue colace 100 mg bidschedul ed miralax 17 gm daily and senna 8.6 mg daily.incr ease oral hydration Anemia 480276833 D64.9 see hpitoday 6.7 -will recheck on 07/25contin ue ferrous sulfate 325 mg dailycolor is normal, there is no SOB, extremitie s are warm.monit or CBC [id number] MIRI NORTON [address] [place] [address] [place] [address] 07/29/2023 09:49:56 08/02/2023 10:28:17 Open wound of right foot 1041886095 2945173 S91.301A 07/19: s/p wound debridemen tcontinue wound treatment as ordered.fo llow up with [facility] on 08/01 at 130 pm Peripheral vascular disease 864408228 I73.9 s/p right femoral endarterec bridget with [...] prncontinu e lidocaine patch right Diabetes mellitus 861828 09 E11.9 continue metformin 500 mg BIDcontinu e to monitor FSfollow-u p with PCP after discharge for further management Essential hypertension 96701769 I10 continue lisinopril 5 mg dailyconti nue metoprolol 50 mg bidfurosem oxana 40 mg dailymonit or BP /labs Anemia 690336853 D64.9 see hpicontinu e ferrous sulfate 325 mg dailycolor is normal, there is no SOB, extremitie s are warm.monit or CBC [id number] MIRI NORTON [facility] [address] [facility] [place] [address] 08/05/2023 09:45:20 08/09/2023 11:18:14 Open wound of right foot 0490236517 2638681 S91.301A 07/19: s/p wound debridemen tcontinue wound treatment as ordered.fo llow up with [facility] on 08/02 with new wound care orders-[facility] care for R foot: Apply saline moistened Promogran over Puraply three times weekly. Peripheral vascular disease 501439650 I73.9 s/p right femoral endarterec bridget with [...] prncontinu e lidocaine patch right Diabetes mellitus 979162 09 E11.9 continue metformin 500 mg BIDcontinu e to monitor FSfollow-u p with PCP after discharge for further management Essential hypertension 13982304 I10 continue lisinopril 5 mg dailyconti nue metoprolol 50 mg bidfurosem oxana 40 mg dailymonit or BP /labs Anemia 791902459 D64.9 see hpicontinu e ferrous sulfate 325 mg dailycolor is normal, there is no SOB, extremitie s are warm.monit or CBC [id number] M[facility]ORTON [facility] [address] [facility] [place] [address] 08/09/2023 08:23:37 08/12/2023 11:43:31 Open wound of right foot 3893190705 9186010 S91.301A 07/19: s/p wound debridemen tcontinue wound treatment as ordered.fo llow up with [facility] on 08/02 with new wound care orders-[facility] care for R foot: Apply saline moistened Promogran over Puraply three times weekly.[facility]. Peripheral vascular disease 139051220 I73.9 s/p right femoral endarterec bridget with [...] prncontinu e lidocaine patch right Diabetes mellitus 945582 09 E11.9 continue metformin 500 mg BIDcontinu e to monitor FS Essential hypertension 83485360 I10 continue lisinopril 5 mg dailyconti nue metoprolol 50 mg bidfurosem oxana 40 mg dailymonit or BP /labs Anemia 269021054 D64.9 H/H has been stable.con tinue ferrous sulfate 325 mg dailycolor is normal, there is no SOB, extremitie s are warm.monit or CBC [id number] MIRI NORTON [address] [place] [address] 08/15/2023 13:44:19 08/18/2023 13:20:18 Open wound of right foot 3007851903 0412251 S91.301A 07/19: s/p wound debridemen tcontinue wound treatment as ordered.fo llow up with [facility] on 08/02 with new wound care orders-[facility] care for R foot: Apply saline moistened Promogran over Puraply three times weekly.07/26 5 :s/p right foot debridemen t, applicatio n of skin substitute graftfollo w up appt 08/15 at [facility] with vascular. Peripheral vascular disease 581442891 I73.9 s/p right femoral endarterec bridget with [...] prncontinu e lidocaine patch right Diabetes mellitus 483027 09 E11.9 continue metformin 500 mg BIDcontinu e to monitor FS Essential hypertension 94227431 I10 continue lisinopril 5 mg dailyconti nue metoprolol 50 mg bidfurosem oxana 40 mg dailymonit or BP /labs Anemia 546588149 D64.9 H/H 6.6/21.2- will repeat labsconsid er adding ascorbic acid dailyconti nue ferrous sulfate 325 mg dailycolor is normal, there is no SOB, extremitie s are warm.monit or CBC [id number] MIRI NORTON [address] [place] [address] 08/16/2023 08:21:08 08/18/2023 15:50:07 Open wound of right foot 9256584717 4188562 S91.301A see HPI with new finding today,07/19 : s/p wound debridemen :s/p right foot debridemen t, applicatio n of skin substitute graft08/10: tuesday morning sent back to S for excessive wound bleeding thru dressings- transfused 1 unit of packed red blood cells.08/11 : returned from [facility].: abnormal H/H 6.3/19.9 Peripheral vascular disease 487226688 I73.9 s/p right femoral endarterec bridget with [...] 6 prncontinu e lidocaine patch right Anemia 972118712 D64.9 H/H 6.3/19.9co ntinue ferrous sulfate 325 mg dailycolor is pale there is no SOB, extremitie s are warm, right foot cold. [id number] M[facility]I NORTON [facility] [address] [place] [address] [place] [address] 08/29/2023 12:13:56 09/05/2023 15:08:58 Amputated below knee 356802836 Z89.519 Critical limb ischemia of right lower extremity now s/p right below knee amputation .continue oxycodone 5 mg q 6 prnfollow up with vascular on 09/01/23 Peripheral vascular disease 519975931 I73.9 s/p below knee amputation continue asa, plavix and eliquiscon tinue oxycodonec ontinue lyrica 150 mg qd and 200 mg at HS Delirium 6054161 R41.0 resolved in acute careof note she is at baseline status, she is alert and oriented. Dysphagia 74160503 R13.1 0 resolvedsh e was seen by speech in acute acute care, continue reg diet with thin liquids Toxic encephalopathy 283 55654 G92.9 resolved in acute careammoni a level 20 on 08/24 Diabetes mellitus 354144 09 E11.9 continue metformin 500 mg BIDcontinu e to monitor FS Essential hypertension 65804978 I10 continue lisinopril 5 mg dailyconti nue metoprolol 50 mg bidfurosem oxana 40 mg dailymonit or BP /labs Hypothyroidism 03166806 E03.9 continue levothyrox ine 200 mcgtsh 8- recheck labs in 6-8 weeks Hyperlipidemia 80601723 E78.49 atorvastat in 40 mg dailymonit or lipids prn Anemia 271862964 D64.9 continue ferrous sulfate 325 mg dailycont. Vit D 1000u daily Constipation 89513154 K5 9.09 continue colace 100 mg bidschedul ed miralax 17 gm daily and senna 8.6 mg daily.incr ease oral hydration Anxiety 70835704 F41.9 continue ativan 0.5 mg q6 prnpsych eval and tx- she had recent amputation , I think she will benefit from speaking with psych, she will need support coping with limp loss. [id number] MIRI NORTON [address] [place] [address] [place] [address] 08/31/2023 10:12:07 09/05/2023 16:19:16 Cough 66496861 R05.9 08/29: non productive congested cough- is not interrupti ng with sleepchest xay showed no active infiltrate s or changes ofpulmonar y venous congestion or evidence of a pleural effusion.w ill start mucinex 600 mg q12 for 7 days and re eval. Amputated below knee 299 601965 Z89.519 Critical limb ischemia of right lower extremity now s/p right below knee amputation .continue oxycodone 5 mg q 6 prnfollow up with vascular on 09/01/23PT/O T eval and treatment for conditioni ng and strengthen ing. Peripheral vascular disease 501312934 I73.9 s/p below knee amputation continue asa, plavix and eliquiscon tinue oxycodonec ontinue lyrica 150 mg qd and 200 mg at HS Essential hypertension 44235671 I10 continue lisinopril 5 mg dailyconti nue metoprolol 50 mg bidfurosem oxana 40 mg dailymonit or BP /labs Hypothyroidism 70712226 E03.9 continue levothyrox ine 200 mcgtsh 8- recheck labs in 6-8 weeks Anxiety 87041216 F41.9 continue ativan 0.5 mg q6 prnpsych eval and tx- she had recent amputation , I think she will benefit from speaking with psych, she will need support coping with limp loss.mood is stable today. [id number] MIRI NORTON [address] [address] 09/05/2023 08:59:26 09/08/2023 16:20:28 Cough 80150535 R05.9 resolved Amputated below knee 299 343295 Z89.519 right below knee amputation .continue oxycodone 5 mg q 6 prncontinu e PT/OT eval and treatment for conditioni ng and strengthen ing.contin ue wound care Betadine, dry gauze, the stump textile clothing and footwear mechanic and the amputation shield. Peripheral vascular disease 900394751 I73.9 s/p below knee amputation continue asa, plavix and eliquiscon tinue oxycodonec ontinue lyrica 150 mg qd and 200 mg at HS Essential hypertension 19532030 I10 continue lisinopril 5 mg dailyconti nue metoprolol 50 mg bidfurosem oxana 40 mg dailymonit or BP /labs Hypothyroidism 08440421 E03.9 continue levothyrox ine 200 mcgtsh 8- recheck labs in 6-8 weeks Anxiety 93145018 F41.9 continue ativan 0.5 mg q6 prnshe was seen by adjunct psychology faculty member who is recommendi ng starting duloxetine , benfits discuused ,patient will like to think about it. Carotid ar dahlia stenosis 35539474 I65.29 stent placement in juner. Amanda would like her on aspirin and plavix for 3 months post op, then can resume aspirin and eliquis.Sh e will need a carotid duplex later on this summer to recheck the right carotid, determine whether to reinterven e on the stent. [id number] MIRI NORTON JOSEY [address] [place] [address] 09/07/2023 11:22:32 09/09/2023 08:57:56 Amputated below knee 419964592 Z89.519 right below knee amputation .continue oxycodone 5 mg q 6 prncontinu e PT/OT eval and treatment for conditioni ng and strengthen ing.contin ue wound care Betadine, dry gauze, the stump textile clothing and footwear mechanic and the amputation shield. Peripheral vascular disease 568529369 I73.9 s/p below knee amputation continue asa, plavix and eliquiscon tinue oxycodonec ontinue lyrica 150 mg qd and 200 mg at HS Essential hypertension 53666046 I10 continue lisinopril 5 mg dailyconti nue metoprolol 50 mg bidfurosem oxana 40 mg dailymonit or BP /labs Hypothyroidism 82670232 E03.9 continue levothyrox ine 200 mcgtsh 8- recheck labs in 6-8 weeks Anxiety 67923094 F41.9 continue ativan 0.5 mg q6 prnshe was seen by adjunct psychology faculty member who is recommendi ng starting duloxetine , benfits discuused ,patient will like to think about it. Carotid ar dahlia stenosis 20705328 I65.29 stent placement in juner. Marecki would like her on aspirin and plavix for 3 months post op, then can resume aspirin and eliquis.Sh e will need a carotid duplex later on this summer to recheck the right carotid, determine whether to reinterven e on the stent. [id number] MIRI NORTON [facility] JOSEY [address] [place] [address] 5 09/12/2023 11:21:52 09/14/2023 16:46:41 Amputated below knee 863068043 Z89.519 right below knee amputation .continue oxycodone 5 mg q 6 prncontinu e PT/OT eval and treatment for conditioni ng and strengthen ing.contin ue wound care Betadine, dry gauze, the stump textile clothing and footwear mechanic and the amputation shield. Peripheral vascular disease 518074891 I73.9 s/p below knee amputation continue asa, plavix and eliquiscon tinue oxycodone Q 6continue lyrica 150 mg qd and 200 mg at HS Essential hypertension 61536485 I10 continue lisinopril 5 mg dailyconti nue metoprolol 50 mg bidfurosem oxana 40 mg dailymonit or BP /labs Hypothyroidism 14239144 E03.9 continue levothyrox ine 200 mcgtsh 8- recheck labs in 6-8 weeks Constipation 54678879 K5 9.09 she reports that she has [...] evening, will order imaging.in crease oral hydration [id number] MIRI NORTON VINI DOWLING [address] [place] [phone] 5 09/15/2023 09:07:09 09/21/2023 10:30:12 Amputated below knee 000674017 Z89.519 right below knee amputation .continue oxycodone 5 mg q 6 prncontinu e PT/OT eval and treatment for conditioni ng and strengthen ing.contin ue wound care Betadine, dry gauze, the stump textile clothing and footwear mechanic and the amputation shield. Peripheral vascular disease 175598525 I73.9 s/p below knee amputation continue asa, plavix and eliquiscon tinue oxycodone Q 6continue lyrica 150 mg qd and 200 mg at HS Essential hypertension 29533073 I10 continue lisinopril 5 mg dailyconti nue metoprolol 50 mg bidfurosem oxana 40 mg dailymonit or BP /labs Hypothyroidism 73868955 E03.9 labs completed on 09/06 seen today and noted with TSH 16.3 and T4 5.1she is currently taking levothyrox ine 200 mcg daily, will increase to 225 mcg and recheck 10/26 or sooner.she reports being tired at times but is not having any other sx at this time Constipation 56159351 K5 9.09 see hpinormact felipe bowel soundscont inue colace 100 mg bidcontinu e miralax 17 gm daily and increase senna 8.6 mg to BID [id number] Afia Tierney MD [address] [place] [address] 09/19/2023 15:52:03 09/21/2023 10:49:23 Amputated below knee 220290216 Z89.511 As above. Peripheral vascular disease 778755926 I73.89 S/P right BKA.Contin ue Plavix 75 [...] stapes out then and then can start textile clothing and footwear mechanic.P rosthetics consult when ready. Essential hypertension 09252967 I10 BP remains in good control on lisinopril 5 mg qd, metoprolol 50 mg BID, and furosemide 40 mg qdMonitor BP and labs. Hypothyroidism 06415867 E03.9 Last TSH sl. high, with nl FT4, but low FT3.Contin ue levothyrox ine 225 mcgRecheck TSH as planned. Constipation 05890309 K5 9.09 No c/o today.Cont inue bowel meds as ordered.Mo nitor bowel function. Carotid ar dahlia stenosis 16697777 I65.29 S/P stent placement in 06/2023.To be on ASA and Plavix x 3 months.The n can stop Plavix.To have repeat U/S next month [id number] MIRI NORTON [facility] [address] [place] [address] 09/22/2023 13:52:47 09/23/2023 15:18:26 Amputated below knee 996754791 Z89.519 right below knee amputation .continue oxycodone 5 mg q 6 prncontinu e PT/OT for conditioni ng and strengthen ing.contin ue wound care Betadine, dry gauze, the stump textile clothing and footwear mechanic and the amputation shield.lupe sing states wound healing without s/sx of infection. Peripheral vascular disease 692780293 I73.9 continue asa, plavix and eliquiscon tinue oxycodone Q 6continue lyrica 150 mg qd and 200 mg at HS Essential hypertension 57459064 I10 continue lisinopril 5 mg dailyconti nue metoprolol 50 mg bidfurosem oxana 40 mg dailymonit or BP /labs Hypothyroidism 85426383 E03.9 Continue levothyrox ine 225 mcgrecheck TSH around 10/26 [id number] MIRI NORTON [facility] [address] [place] [address] 09/27/2023 11:23:38 10/18/2023 07:43:35 Amputated below knee 483264425 Z89.519 right below knee amputation .continue oxycodone 5 mg q 6 prncontinu e PT/OT for conditioni ng and strengthen ing.contin ue wound care Betadine, dry gauze, the stump textile clothing and footwear mechanic and the amputation shield.lupe sing states wound healing without s/sx of infection. Peripheral vascular disease 247348691 I73.9 continue asa, plavix and eliquiscon tinue oxycodone Q 6continue lyrica 150 mg qd and 200 mg at HS Essential hypertension 68884755 I10 continue lisinopril 5 mg dailyconti nue metoprolol 50 mg bidfurosem oxana 40 mg dailymonit or BP /labs Hypothyroidism 17941649 E03.9 Continue levothyrox ine 225 mcgrecheck TSH around 8 Anxiety 36878488 F41.9 continue ativan 0.5 mg q6 prnshe has agreed to try antidepres santshe was started on fluoxetine 20 mg daily on 09/18will monitor mood and behavior Diabetes mellitus 423605 09 E11.9 no recent BGL, will order weekly checks.con tinue metformin 500 mg BIDcontinu e to monitor FS [id number] MIRI NORTON [address] [address] 10/04/2023 09:15:00 10/18/2023 08:13:38 Amputated below knee 090180973 Z89.519 right below knee amputation .continue oxycodone 5 mg q 6 prncontinu e PT/OT for conditioni ng and strengthen ing.contin ue wound care Betadine, dry gauze, the stump textile clothing and footwear mechanic and the amputation shield.lupe francisco states wound healing without s/sx of infection. she will have remaining stable removed this upcoming friday 10/06. Peripheral vascular disease 666042332 I73.9 continue asa, plavix and eliquiscon tinue oxycodone Q 6continue lyrica 150 mg qd and 200 mg at HS Essential hypertension 37501620 I10 continue lisinopril 5 mg dailyconti nue metoprolol 50 mg bidfurosem oxana 40 mg dailymonit or BP /labs Hypothyroidism 04445140 E03.9 Continue levothyrox ine 225 mcgrecheck TSH around 10/26 Anxiety 40313835 F41.9 continue ativan 0.5 mg q6 prnshe has agreed to try antidepres santshe was started on fluoxetine 20 mg daily on 09/18will monitor mood and behavior Diabetes mellitus 309640 09 E11.9 no recent BGL, will order weekly checks.con tinue metformin 500 mg BIDcontinu e to monitor FS7/724 BGL 120 [id number] MIRI NORTON [address] [address] 10/06/2023 08:54:05 10/18/2023 08:26:39 Amputated below knee 735431872 Z89.519 right below knee amputation .continue oxycodone 5 mg q 6 prn- will change to 24 prn and eventually stop of noted she has not used in 3 days.galindo nue PT/OT for conditioni ng and strengthen ing.contin ue wound care Betadine, dry gauze, the stump textile clothing and footwear mechanic and the amputation shield.wou nd healing without s/sx of infection. she will have remaining nehemias removed this upcoming friday 10/06. Peripheral vascular disease 459558890 I73.9 continue asa, plavix and eliquiscon tinue oxycodone Q 6continue lyrica 150 mg qd and 200 mg at HS Essential hypertension 35292727 I10 continue lisinopril 5 mg dailyconti nue metoprolol 50 mg bidfurosem oxana 40 mg dailymonit or BP /labs Anxiety 55211807 F41.9 continue ativan 0.5 mg q6 prnshe has agreed to try antidepres santshe was started on fluoxetine 20 mg daily on 09/18[facility] monitor mood and behavior [id number] MIRI NORTON [facility] [address] [place] [address] 10/10/2023 10:05:30 10/18/2023 09:02:23 Amputated below knee 943880302 Z89.519 right below knee amputation .remaining nehemias removed on 10/07/23- she has small superficia l open area moist and draining scant serous output. wound care for to cleanse with NS and apply aquacel cover with gauze.cont inue oxycodone 5 mg q 12 prn-contin ue PT/OT for conditioni ng and strengthen ing.contin ue wound care, the stump textile clothing and footwear mechanic and the amputation shieldwoun d healing without s/sx of infection. Peripheral vascular disease 668536205 I73.9 continue asa, plavix and eliquiscon tinue oxycodone Q 6continue lyrica 150 mg qd and 200 mg at HS Essential hypertension 92886075 I10 BP has been underconti nue lisinopril 5 mg dailyconti nue metoprolol 50 mg bidfurosem oxana 40 mg dailymonit or BP /labs Anxiety 30781586 F41.9 continue ativan 0.5 mg q6 prnshe has agreed to try antidepres santshe was started on fluoxetine 20 mg daily on 09/18will monitor mood and behavior Carotid ar dahlia stenosis 90808845 I65.29 10/09:Histo ry of bilateral TCAR and [...] whether to reinterven e on the stent. [id number] Tere HerreraMariajose MARTINI JOSEY [address] [facility] [place] [address] 10/14/2023 09:41:31 10/18/2023 09:28:24 Amputated below knee 251621697 Z89.519 does not need wrap. healedappl y skin prep BID nsg updated.wo rking with PTpain controlled . Vascular dementia 777636 004 F01.54 chronis stablediff iculty to recall thoughts and respond to questions. mood stablecont inue supportive caremonito r for decline. [id number] ZENOBIA BRADLEY JOSEY [address] [facility] [place] [address] 10/20/2023 09:58:42 10/22/2023 09:32:05 Amputated below knee 556835645 Z89.519 right below knee amputation .remaining nehemias removed on 10/07/23- continues to heal well.stop oxycodone 5 mg q 12 prn due to minimal usecontinu e PT/OT for conditioni ng and strengthen ing.contin ue wound care, the stump textile clothing and footwear mechanic and the amputation shieldwoun d healing without s/sx of infection. Peripheral vascular disease 417218593 I73.9 continue asa, plavix and eliquiscon tinue lyrica 150 mg qd and 200 mg at HS for pain mgmt Essential hypertension 56605545 I10 VSS, BP soft on occasionco ntinue lisinopril 5 mg dailyconti nue metoprolol 50 mg bidfurosem oxana 40 mg dailymonit or BP /labs Anxiety 61987151 F41.9 continue ativan 0.5 mg q6 prn - occasional use, discussed with nsg. will renew for another 14 days.Dulox etine 20 mg daily recently started, orly. well so far, nsg. feels it has been helping mood and behaviors. Continue to monitorPsy ch following as well. Carotid ar dahlia stenosis 65295006 I65.29 History of bilateral TCAR and left [...] ultrasound , plavix, and follow up appt. [id number] MIRI NORTON [address] [facility] [place] [place] [address] 10/25/2023 10:59:01 10/26/2023 15:44:22 Amputated below knee 362918037 Z89.519 right below knee amputation , continues to heal well.now open to air ,wound healing without s/sx of infection. continue tylenol and lyrica Peripheral vascular disease 627113401 I73.9 continue asa, plavix and eliquiscon tinue lyrica 150 mg qd and 200 mg at HS for pain mgmtwill discuss need to continue plavix at vascular appt 10/28/23 Essential hypertension 73816564 I10 continue lisinopril 5 mg dailyconti nue metoprolol 50 mg bidfurosem oxana 40 mg dailymonit or BP /labs Anxiety 16846002 F41.9 continue ativan 0.5 mg q6 prn - occasional use, discussed with nsg. will renew for another 14 days.Dulox etine 20 mg daily recently started, orly. well so far, nsg. feels it has been helping mood and behaviors. - seen by adjunct psychology faculty member on 10/23 reports feeling some improvemen t with duloxetine , recommende d to continueCo ntinue to monitorPsy ch following as well. Carotid ar dahlia stenosis 29260513 I65.29 History of bilateral TCAR and left [...] will be discussed at that appointmen t. [id number] MIRI NORTON [address] [place] [address] 10/26/2023 12:11:32 10/31/2023 16:07:08 COVID-19 653605164 U07.1 see hpiwill started paxlovid, isolation precaution supportati ve treatment: with mucinex 600 mg BID for 5 dayspaxlov id as orderedprn neb tx for sob. [id number] MIRI NORTON [address] [place] [address] 10/31/2023 16:29:45 11/01/2023 13:09:54 COVID-19 348372299 U07.1 she has been stable no reportable sx notedwill received last dose of paxlovid tonightiso lation precaution continue supportati ve treatment: prn neb tx for sob. Amputated below knee 299 790074 Z89.519 right below knee amputation , continues to heal well.now open to air ,wound healing without s/sx of infection. continue tylenol and lyrica Peripheral vascular disease 614673966 I73.9 continue asa, plavix and eliquiscon tinue lyrica 150 mg qd and 200 mg at HS for pain mgmtwill discuss need to continue plavix at vascular appt 10/28/23 Essential hypertension 96980730 I10 continue lisinopril 5 mg dailyconti nue metoprolol 50 mg bidfurosem oxana 40 mg dailymonit or BP /labs Anxiety 44132861 F41.9 continue ativan 0.5 mg q6 prn -continue Duloxetine 20 mg dailymood has been good.Galindo nue to monitorPsy ch following as well. Carotid ar dahlia stenosis 25247177 I65.29 History of bilateral TCAR and left [...] will be discussed at that appointmen tCandis [id number] MIRI NORTON [address] [place] [address] rd [place]NANDEZ [address] 11/04/2023 09:52:30 11/08/2023 11:09:10 COVID-19 880872660 U07.1 completed anti-viral . Amputated below knee 299 470675 Z89.519 right below knee amputation , continues to heal well.now open to air ,wound healing without s/sx of infection. continue tylenol and lyrica Peripheral vascular disease 542675523 I73.9 continue asa, plavix and eliquis- on hold for now for melenacont inue lyrica 150 mg qd and 200 mg at HS for pain mgmt Essential hypertension 64257694 I10 continue lisinopril 5 mg dailyconti nue metoprolol 50 mg bidfurosem oxana 40 mg dailymonit or BP /labs Anxiety 54340668 F41.9 continue ativan 0.5 mg q6 prn -continue Duloxetine 20 mg dailyConti nue to monitorPsy ch following as well. Carotid ar dahlia stenosis 83226589 I65.29 History of bilateral TCAR and left carotid endarterec bridget.stent placement in june 2023will need carotid duplex to be scheduled by vascular at her next appt.Dr. Patel would like her on aspirin and plavix for 3 months post op, then can resume aspirin and eliquis.sheryr lerma had carotid ultrasound scheduled for 10/27.- reschedule d due to covid decision to continue or stop plavix will be discussed at that appointmen tCandis Chamberlain 8504470 K92.1 11/02: nursing report black tarry stool, [...] hematemesi s, weakness, dizziness and or pallor. [id number] MIRI NORTON [address] [place] [address] [place] [address] 11/07/2023 08:49:06 11/09/2023 10:55:24 Melena 0395990 K92.1 11/06: continue to have black tarry [...] s, weakness, dizziness and or pallor. Anemia 630736718 D64.9 H/H trending down today noted at 09/12-signi ficant drop in 7 days tested 3 times. continue ferrous sulfate 325 mg dailycont. Vit D 1000u daily [id number] ZENOBIA Ulloa [address] [place] [address] [place]DE[place] [address] 11/12/2023 07:51:13 11/18/2023 09:17:41 Anemia 107439104 D64.9 per [facility] summary: Held Eliquis, aspirin and Plavix since [...] obtained with hemoglobin [address] [facility],No reports of blood in stool or melena [...] bmp weekly on mondays x 3 Esophagitis 77559723 K20 .90 no melena noted in hospital, [...] bmp weekly on mondays x 3 Anxiety 31847206 F41.9 while in hopsital her ativan 0.5 mg q6 prn was discontinu edcontinue Duloxetine 20 mg dailyConti nue to monitorPsy ch following as well. Hypothyroidism 50594008 E03.9 adjusted in hospitalco nt levothyrox ine 200 mcg po dailyreche ck tsh in 8 weeksmonit or Essential hypertension 17618565 I10 bp initially soft in hospital, lisinopril was held, now resolved and resumedcon tlisinopri l 5 mg po dailymetop rolol 50 mg po q 12 hoursmonit or Amputated below knee 299 096036 Z89.519 right below knee amputation , continues to heal well.galindo nue tylenol and lyricafu with vascular as planned Peripheral vascular disease 378236982 I73.9 eliquis on holdcontin ueasa, plavixlyri ca 150 mg qdmonitor Pressure i njury of coccygeal region of back stage II 7323792480 6782300 L89.152 healing denuded skin to right coccyx11/11 apply barrier cream topically bid and prnfrequen t brief changes and reposition ingmonitor for infection Vascular dementia 896955 004 F01.54 stablediff iculty to recall thoughts and respond to questions at baseline per staffmood stablecont inue supportive caremonito r for decline. [id number] MIRI NORTON [address] [place] [address] [place] [address] 11/14/2023 09:54:52 11/18/2023 10:04:39 Esophagitis 44421094 K20.90 no melena noted in hospital, but [...] bmp weekly on mondays x 3 Anemia 427494174 D64.9 per [facility] summary: Held Eliquis, aspirin and Plavix since [...] obtained with hemoglobin [address] [facility],No reports of blood in stool or melena [...] bmp weekly on mondays x 3 Anxiety 72846489 F41.9 while in hopsital her ativan 0.5 mg q6 prn was discontinu edcontinue Duloxetine 20 mg dailyConti nue to monitorPsy ch following as well. Hypothyroidism 61734960 E03.9 adjusted in hospitalco nt levothyrox ine 200 mcg po dailyreche ck tsh in 8 weeksmonit or Essential hypertension 67664885 I10 bp initially soft in hospital, lisinopril was held, now resolved and resumedcon tlisinopri l 5 mg po dailymetop rolol 50 mg po q 12 hoursmonit or Amputated below knee 299 897802 Z89.519 right below knee amputation , continues to heal well.galindo nue tylenol and lyricafu with vascular as planned Peripheral vascular disease 058639306 I73.9 eliquis on holdcontin ueasa, plavixlyri ca 150 mg qdmonitor Pressure i njury of coccygeal region of back stage II [id number] 5877758 L89.152 healing denuded skin to right coccyx11/11 apply barrier cream topically bid and prnfrequen t brief changes and reposition ingmonitor for infection Vascular dementia 965232 004 F01.54 stablediff iculty to recall thoughts and respond to questions at baseline per staffmood stablecont inue supportive caremonito r for decline. [id number] MIRI NORTON [address] [address] 11/17/2023 14:04:30 11/23/2023 09:14:45 Anxiety 74260614 F41.9 stableDulo xetine 20 mg dailyConti nue to monitorPsy ch following as well. Hypothyroidism 27609286 E03.9 adjusted in hospitalco nt levothyrox ine 200 mcg po dailyreche ck tsh in 8 weeksmonit or Essential hypertension 49313917 I10 stable-lis inopril 5 mg po dailymetop rolol 50 mg po q 12 hoursmonit or Amputated below knee 299 027353 Z89.519 right below knee amputation , continues to heal well.galindo nue tylenol and lyricafu with vascular as planned Peripheral vascular disease 477796836 I73.9 eliquis stoppedcon tinue:asa, plavixlyri ca 150 mg qdmonitor Vascular dementia 494220 [address] declinebas sahara difficulty with word findingmoo d stablecont inue supportive caremonito r for decline. Anemia 055877039 D64.9 continuefe rrous sulfate 325 mg dailycont. Vit D 1000u dailymonit or cbc and bmp weekly on mondays x 3 [id number] MIRI NORTON [address] [address] 11/21/2023 11:10:23 11/23/2023 10:20:09 Anxiety 92069077 F41.9 stableDulo xetine 20 mg dailyConti nue to monitorPsy ch following as well. Hypothyroidism 82920432 E03.9 adjusted in hospitalco nt levothyrox ine 200 mcg po dailyreche ck tsh in 8 weeksmonit or Essential hypertension 84084566 I10 stable-lis inopril 5 mg po dailymetop rolol 50 mg po q 12 hoursmonit or Amputated below knee 299 412025 Z89.519 right below knee amputation , continues to heal well.galindo nue tylenol and lyricafu with vascular as planned Peripheral vascular disease 787142329 I73.9 eliquis stoppedcon tinue:asa, plavixlyri ca 150 mg qdmonitor Vascular dementia 760545 [address] declinebas sahara difficulty with word findingmoo d stablecont inue supportive caremonito r for decline. Anemia 795997376 D64.9 continuefe rrous sulfate 325 mg dailycont. Vit D 1000u dailymonit or cbc and bmp weekly on mondays x 3 [id number] MIRI NORTON [address] [address] 11/29/2023 10:14:07 12/01/2023 14:32:41 Anxiety 46379914 F41.9 stablecont inue duloxetine 20 mg daily- she is having a positive response with med.Contin ue to monitorupd ate HDBH with concerns. Hypothyroidism 20216783 E03.9 adjusted in hospitalco nt levothyrox ine 200 mcg po dailyreche ck tsh in 8 weeks- ord for . 11/18monito r Essential hypertension 58478699 I10 continue lisinopril 5 mg po dailyconti nue metoprolol 50 mg po q 12 hoursmonit or Amputated below knee 299 341322 Z89.519 right below knee amputation , continues to heal well.galindo nue tylenol and lyricafu with vascular as planned Peripheral vascular disease 045021137 I73.9 eliquis stoppedcon tinue:asa, plavixlyri ca 150 mg qdmonitor Vascular dementia 467205 004 F01.54 expect declinebas sahara difficulty with word findingmoo d stablecont inue supportive caremonito r for decline. Anemia 664755590 D64.9 continuefe rrous sulfate 325 mg dailycont. Vit D 1000u dailymonit or cbc and bmp weekly on mondays x 39/3: H/H has been stable increasing every week. [id number] MIRI NORTON [address] [address] 12/01/2023 11:44:42 12/05/2023 13:22:49 Amputated below knee [id number] Z89.519 right below knee amputation open wound noted on stump concerning for infection, yellowish drainage noted on dressing ,will send culture.co ntinue tylenol and lyricafu with vascular as planned Peripheral vascular disease [id number] I73.9 eliquis stoppedcon tinue:asa, plavixlyri ca 150 mg qdmonitor Vascular dementia 065616 004 F01.54 expect declinebas sahara difficulty with word findingmoo d stablecont inue supportive caremonito r for decline. [id number] MIRI NORTON [address] [address] 12/05/2023 09:49:14 12/07/2023 10:15:18 Amputated below knee [id number] Z89.519 right below knee amputation wound culture pendingcon tinue tylenol and lyricafu with vascular as planned Peripheral vascular disease 084086556 I73.9 eliquis stoppedcon tinue:asa, plavixlyri ca 150 mg qdmonitor Vascular dementia 574854 004 F01.54 expect declinebas sahara difficulty with word findingmoo d stablecont inue supportive caremonito r for decline. [id number] MIRI NORTON [address] [address] 12/12/2023 08:48:56 12/14/2023 08:51:51 Amputated below knee [id number] Z89.519 right below knee amputation continue tylenol and lyricafu with vascular as planned on 12/16/23 Peripheral vascular disease 945403003 I73.9 eliquis stoppedcon tinue:asa, plavixlyri ca 150 mg qdmonitor Vascular dementia 578163 004 F01.54 expect declinebas sahara difficulty with word findingmoo d stablecont inue supportive caremonito r for decline. Subconjunc tival hemorrhage of left eye [id number] 83318 H11.32 no pain or visual changesnur sing to update provider for changes in vision, pain or discharge. can apply warm compress for comfort if irritated. 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 Peripheral vascular disease 310640192 I73.9 12/15 carotid duplex shows 70 to 99% stenosis in her right ICA, this is s/p TCAR and she has a patent stent. Her left side shows 1 to 49% stenosis in the ICA with a patent stent.repe at duplex in 6 months eliquis stoppedcon tinue:asa, plavixlyri ca 150 mg qdmonitor Vascular dementia 615508 004 F01.54 expect declinebas sahara difficulty with word findingmoo d stablecont inue supportive caremonito r for decline. Subconjunc tival hemorrhage of left eye [id number] 76325 H11.32 resolvingn o pain or visual changesnur sing to update provider for changes in vision, pain or discharge. can apply warm compress for comfort if irritated. monitor for worsening sx, pt is on asa and plavix daily.H/H stable , will continue to monitor Insomnia 073512940 G47.0 0 see HPIstop melatonins tart trazodone 50 mg at HSmonitor for effectiven ess [id number] MIRI NORTON VINI JOSEY [address] [facility] [place] [address] 12/22/2023 11:08:23 12/23/2023 12:52:01 Amputated below knee 518274863 Z89.519 right below knee amputation continue tylenol [...] and promote wound healing. Peripheral vascular disease 088183915 I73.9 12/15 carotid duplex shows 70 to [...] plavixlyri ca 150 mg qdmonitor Vascular dementia 768939 004 F01.54 expect declinebas sahara difficulty with word findingmoo d stablecont inue supportive caremonito r for decline. Subconjunc tival hemorrhage of left eye 2708414775 84036 H11.32 resolvingn o pain or visual changesnur sing to update provider for changes in vision, pain or discharge. can apply warm compress for comfort if irritated. monitor for worsening sx, pt is on asa and plavix daily.H/H stable , will continue to monitor Insomnia 251216057 G47.0 0 continue trazodone 50 mg at HS- will reassess at next visit.prakash cat for effectiven essdiscuss ed with patient avoiding caffeine drinks before bed, antidepres nuria and BP meds can causes insomnia. we discussed trying relaxation techniques such as deep breathing and guided imagery. [id number] MIRI NORTON 36 [facility] [place] [address] 12/27/2023 14:42:28 12/28/2023 11:41:01 Amputated below knee 031155264 Z89.519 right below knee amputation continue tylenol [...] and promote wound healing. Peripheral vascular disease 295484472 I73.9 12/15 carotid duplex shows 70 to [...] plavixlyri ca 150 mg qdmonitor Vascular dementia 571675 004 F01.54 expect declinebas sahara difficulty with word findingmoo d stablecont inue supportive caremonito r for decline. Subconjunc tival hemorrhage of left eye 5325230418 46068 H11.32 resolvingn o pain or visual changesnur sing to update provider for changes in vision, pain or discharge. can apply warm compress for comfort if irritated. monitor for worsening sx, pt is on asa and plavix daily.H/H stable , will continue to monitor Insomnia 740195543 G47.0 0 continue trazodone 50 mg at HS- will reassess at next visit.prakash cat for effectiven essdiscuss ed with patient avoiding caffeine drinks before bed, antidepres nuria and BP meds can causes insomnia. we discussed trying relaxation techniques such as deep breathing and guided imagery. [id number] MIRI NORTON [address] [place] [address] 01/02/2024 08:33:03 01/03/2024 11:47:07 Amputated below knee 607874313 Z89.519 followed closely by vascular.r ight below [...] and promote wound healing. Peripheral vascular disease 822805240 I73.9 12/15 carotid duplex shows 70 to [...] plavixlyri ca 150 mg qdmonitor Vascular dementia 453062 [address] declinebas sahara difficulty with word findingmoo d stablecont inue supportive caremonito r for decline. Subconjunc tival hemorrhage of left eye 2834684924 22200 H11.32 resolvingn o pain or visual changesnur sing to update provider for changes in vision, pain or discharge. can apply warm compress for comfort if irritated. monitor for worsening sx, pt is on asa and plavix daily.H/H stable , will continue to monitor Insomnia 135478555 G47.0 0 continue trazodone 50 mg at [...] Member ID Guarantor Name 12/28/2023 2 [place] [facility] Marixa Chan [id number] Marixa Chan 12/27/2023 1 [place]IC[place] B[place] [employer] Marixa Chan [id number] Marixa Chan Notes Date Note Type Note [...] for acute rounding visit MIRI NORTON 38 [facility], [facility] [address], [place], [address], [employer] 12/12/2023 14:39:04 12/19/2023 text/html ROS as noted [...] playing television all night. MIRI NORTON [address] [facility], [address], [place], [address], [employer] 12/20/2023 15:35:55 12/22/2023 text/html ROS as noted [...] have a stump strinker. MIRI NORTON 38 [facility] [address], [place], [address], [facility] [employer] 12/22/2023 16:22:53 12/27/2023 text/html ROS as noted [...] not have a stump strinker. MIRI NORTON [address] [place] [address] [address], [place], [address], [facility] [employer] 12/27/2023 15:20:31 01/02/2024 text/html ROS as noted [...] have a stump strinker. MIRI NORTON 38 [facility], [facility] [address], [place], [address], [facility] [employer] 01/02/2024 13:22:00 OBGyn Episode No OBEpisode recorded.
--- OUTSIDE RECORDS SUMMARY | 2025-01-18 05:34 | XMS_ITS | Encounter Summary ---
Author Organization [facility] Address [address] [place] [address] Phone Care Team Providers Care Toggler Name Role Phone Agueda Ann MD Primary Care Provider [phone] Andie Rossi MD Unavailable eWst Doll MD Unavailable Britany Coles MD Unavailable Naun Hoang MD Unavailable + Agueda Ann MD Unavailable Latosha Garcia OT Unavailable Latosha Garcia OT Unavailable [phone] Mely Bhatti RN Unavailable [email or web address] Encounter Details Date Type Department Care Team (Late st Contact Info) Description 11/04/2022 Procedure Pass [facility] 30 [place] [address] Social History Tobacco Use Types Packs/Day Years [...] high school, GED, job training, learning the Sinhala language, technical skills, or developing parenting skills)? [...] 11/04/2022 1:06 AM Lucita Hirsch, NICOLE * [place] Suicide Severity Rating Scale (Screener/Recent Self-Report) Question [...] documented as of this encounter Care Teams Toggler Relationship Specialty Start Date End Date Agueda Ann MD [address] [address] [email or web address] PCP - General Family Medicine 02/01/19 Andie Rossi MD [address] [place] [address] Neurology 03/02/19 West Doll MD [address] [place] [address] 104 [place] [address] Cardiology 03/02/19 Britany Coles MD [address] [place] [address] 140 [place] [address] [email or web address] Orthopedic Surgery 03/02/19 Naun Hoang MD [address] [place] [address] Infectious Diseases 03/02/19 Agueda Ann MD [address] [address] [email or web address] Insurance Assigned Provider 07/02/23 04/02/24 Latosha Garcia, OT 30 [place] [address] [email or web address] Transitions Faculty Research PhysicianMass Spectroscopist Therapy 11/05/22 11/07/22 Latosha Garcia, OT 30 [place] [address] [email or web address] Transitions Faculty Research PhysicianMass Spectroscopist Therapy 11/24/22 11/25/22 Mely Bhatti RN 30 [place] [address] [email or web address] Faculty Research Physician 05/12/23 06/09/23 documented as of this encounter Additional Source Comments The information contained in this document represents components of the legal health record. It is not the complete legal health record.[facility]
--- OUTSIDE RECORDS SUMMARY | 2025-01-18 05:34 | XMS_ITS | Encounter Summary ---
Author Organization [employer] Address [address] 7[address] [place] [address] Care Team Providers Care Truck Sales Representative Name Role Phone Unavailable Primary Care Provider Unavailabl e Reason for Visit * Reason Onset Date Comments medical clearance 05/27/2022 Encounter Details Date Type Department Care Team (Late st Contact Info) Description 05/27/2022 Telephone [facility] [address] [place] [address] Davonte Cunningham DDS medical clearance Social History [...] was for medical clearance. Pls re send [phone] * Telephone Encounter - Lucina Leigh - [...] was for medical clearance. Pls re send [phone] documented in this encounter Plan of Treatment Not on file documented as of this encounter Visit Diagnoses Not on filedocumented in this encounter
--- OUTSIDE RECORDS SUMMARY | 2025-01-18 05:34 | XMS_ITS | Encounter Summary ---
Author Organization [employer] Address [address] [facility] 7t [place] [address] Care Team Providers Care Cement Sprayer Helper Name Role Phone Unavailable Primary Care Provider Unavailabl e Encounter Details Date Type Department Care Team (Latest Contact Info) Description 07/09/2020 Abstract [facility] CONVERSIONS Dental, Provider, DDS Social History Tobacco [...]
--- OUTSIDE RECORDS SUMMARY | 2025-01-18 05:34 | XMS_ITS | Clinical Summary ---
Author Organization [address] Address [address] [place] [address] Care Team Providers Care Private Branch Exchange Repairer Name Role Phone Unavailable Primary Care Provider [...]
--- OUTSIDE RECORDS SUMMARY | 2025-01-18 05:34 | XMS_ITS | Encounter Summary ---
Author Organization [facility] Address [address] [place] [address] Phone Care Team Providers Care Machine Filler Shredder Name Role Phone Agueda Ann MD Primary Care Provider [phone] Andie Rossi MD Unavailable West Doll MD Unavailable Britany Coles MD Unavailable [phone] Naun Hoang MD Unavailable + Agueda Ann MD Unavailable Mely Bhatti RN Unavailable [email or web address] Encounter Details Date Type Department Care Team (Late st Contact Info) Description 12/24/2022 Procedure Pass [facility] [address] [place] [address] Social History Tobacco Use Types Packs/Day Years [...] high school, GED, job training, learning the Arabic language, technical skills, or developing parenting skills)? [...] 12/24/2022 9:29 AM Natalya Menon, NICOLE * [place] Suicide Severity Rating Scale (Screener/Recent Self-Report) Question [...] as of this encounter Care Teams Machine Filler Shredder Relationship Specialty Start Date End Date Agueda Ann MD [address] [address] [email or web address] PCP - General Family Medicine 02/01/19 Andie Rossi MD [address] [place] [address] Neurology 03/02/19 West Doll MD [address] [place] [address] 104 [place] [address] Cardiology 03/02/19 Britany Coles MD [address] [place] [address] 140 [place] [phone] [email or web address] [email or web address] Surgery 03/02/19 Naun Hoang MD [address] [place] [address] Infectious Diseases 03/02/19 Agueda Ann MD [address] [address] [email or web address] Insurance Assigned Provider 4/6/24 1/6/25 Mely Bhatti, RN [address] [place] [address] [email or web address] 05/12/23 06/09/23 documented as of this encounter Additional Source Comments The information contained in this document represents components of the legal health record. It is not the complete legal health record.[facility]
--- OUTSIDE RECORDS SUMMARY | 2025-01-18 05:34 | XMS_ITS | Encounter Summary ---
Author Organization [facility] Address [address] [place] [address] Phone Care Team Providers Care Earth Science Teacher Name Role Phone Agueda Ann MD Primary Care Provider [phone] Andie Rossi MD Unavailable West Doll MD Unavailable Britany Coles MD Unavailable Naun Hoang MD Unavailable + Agueda Ann MD Unavailable Mely hBatti RN Unavailable [email or web address] Encounter Details Date Type Department Care Team (Late st Contact Info) Description 12/24/2022 Procedure Pass [facility], [facility] [place] [address] [place] [address] Social History Tobacco Use Types Packs/Day Years [...] high school, GED, job training, learning the Guyanese language, technical skills, or developing parenting skills)? [...] 9:29 AM ALEKT Natalya Delgadillo RN * [place] Suicide Severity Rating Scale (Screener/Recent Self-Report) Question [...] documented as of this encounter Care Teams Earth Science Teacher Relationship Specialty Start Date End Date Agueda Ann MD [address] [address] [email or web address] PCP - General Family Medicine 02/01/19 Andie Rossi MD [address] [place] [address] Neurology 03/02/19 West Doll MD [address] [place] [address] 104 [place] [address] Cardiology 03/02/19 Britany Coles MD [address] [place] [address] 140 [place] [phone] [email or web address] Surgery 03/02/19 Naun Hoang MD [address] [place] [address] Infectious Diseases 03/02/19 Agueda Ann MD [address] [address] [email or web address] Insurance Assigned Provider 07/02/23 04/02/24 Mely Bhatti, NICOLE [address] [address] [email or web address] Supervisor 05/12/23 06/09/23 documented as of this encounter Additional Source Comments The information contained in this document represents components of the legal health record. It is not the complete legal health record.[facility]
--- OUTSIDE RECORDS SUMMARY | 2025-01-18 05:34 | XMS_ITS | Encounter Summary ---
Author Organization [facility] Address [address] [place] [address] Phone Care Team Providers Care Hand Cigar Maker Name Role Phone Agueda Ann MD Primary Care Provider [phone] Andie Rossi MD Unavailable West Doll MD Unavailable [phone] Britany Coles MD Unavailable Naun Hoang MD Unavailable + Agueda Ann MD Unavailable Mely Bhatti RN Unavailable [email or web address] Encounter Details Date Type Department Care Team (Late st Contact Info) Description 12/24/2022 Procedure Pass [facility], [facility] 30 [place] [address] Social History Tobacco Use Types Packs/Day Years [...] 12/24/2022 9:29 AM Natalya Menon, NICOLE * [place] Suicide Severity Rating Scale (Screener/Recent Self-Report) Question [...] as of this encounter Care Teams Hand Cigar Maker Relationship Specialty Start Date End Date Agueda Ann MD [address] [address] [email or web address] PCP - General Family Medicine 02/01/19 Andie Rossi MD [address] [place] [address] Neurology 03/02/19 West Doll MD [address] [place] [address] 104 [place] [address] Cardiology 03/02/19 Britany Coles MD [address] [place] [address] 140 [place] [phone] [email or web address] Orthopedic Surgery 03/02/19 Naun Hoang MD [address] [place] [address] Infectious Diseases 03/02/19 Agueda Ann MD [address] [address] [email or web address] Insurance Assigned Provider 4/6/24 1/6/25 Mely Bhatti, RN [address] [place] [address] [email or web address] Technician 05/12/23 06/09/23 documented as of this encounter Additional Source Comments The information contained in this document represents components of the legal health record. It is not the complete legal health record.[facility]
--- OUTSIDE RECORDS SUMMARY | 2025-01-18 05:34 | XMS_ITS | Encounter Summary ---
Author Organization [facility] Address [address] [place] [address] Phone Care Team Providers Care Transit Police Officer Name Role Phone Agueda Ann MD Primary Care Provider [phone] Andie Rossi MD Unavailable West Doll MD Unavailable Britany Coles MD Unavailable Naun Hoang MD Unavailable + Agueda Ann MD Unavailable Mely Bhatti RN Unavailable [email or web address] Encounter Details Date Type Department Care Team (Late st Contact Info) Description 12/24/2022 Procedure Pass [facility], [facility] 30 [place] [address] Social History Tobacco Use Types Packs/Day Years [...] 12/24/2022 9:29 AM Natalya Menon, NICOLE * [place] Suicide Severity Rating Scale (Screener/Recent Self-Report) Question [...] documented as of this encounter Care Teams Transit Police Officer Relationship Specialty Start Date End Date Agueda Ann MD [address] [address] PCP - General Family Medicine 02/01/19 Andie Rossi MD [address] [place] [address] Neurology 03/02/19 West Doll MD [address] [place] [address] 104 [place] [address] Cardiology 03/02/19 Britany Coles MD [address] [place] [address] 140 [place] [phone] [email or web address] [email or web address] Surgery 03/02/19 Naun Hoang MD [address] [place] [address] Infectious Diseases 03/02/19 Agueda Ann MD [address] [address] Insurance Assigned Provider 4/6/24 1/6/25 Mely Bhatti, RN [address] [place] [address] [email or web address] 05/12/23 06/09/23 documented as of this encounter Additional Source Comments The information contained in this document represents components of the legal health record. It is not the complete legal health record.[facility]
--- OUTSIDE RECORDS SUMMARY | 2025-01-18 05:34 | XMS_ITS | Encounter Summary ---
Author Organization [employer] Address [address] [facility] 7t [place] [address] Care Team Providers Care Custom Protection Officer Name Role Phone Unavailable Primary Care Provider Unavailabl e Encounter Details Date Type Department Care Team (Latest Contact Info) Description 05/02/2018 Abstract [facility] CONVERSIONS Dental, Provider, DDS Social History [...]
--- OUTSIDE RECORDS SUMMARY | 2025-01-18 05:34 | XMS_ITS | Encounter Summary ---
Author Organization [facility] Address [address] [place] [address] Phone Care Team Providers Care Lean Sensei Name Role Phone Agueda Ann MD Primary Care Provider [phone] Andie Rossi MD Unavailable [phone] West Doll MD Unavailable Britany Coles MD Unavailable [phone] Naun Hoang MD Unavailable + Agueda Ann MD Unavailable Mely Bhatti RN Unavailable [email or web address] Encounter Details Date Type Department Care Team (Late st Contact Info) Description 12/24/2022 Procedure Pass [facility], [facility] 30 [place] [address] Social History Tobacco Use Types Packs/Day Years [...] 12/24/2022 9:29 AM Natalya Menon, NICOLE * [place] Suicide Severity Rating Scale (Screener/Recent Self-Report) Question [...] documented as of this encounter Care Teams Lean Sensei Relationship Specialty Start Date End Date Agueda Ann MD [address] [address] [email or web address] PCP - General Family Medicine 02/01/19 Andie Rossi MD [address] [place] [address] Neurology 03/02/19 West Doll MD [address] [place] [address] 104 [place] [address] Cardiology 03/02/19 Britany Coles MD [address] [place] [address] 140 [place] [phone] [email or web address] 03/02/19 Nuan Hoang MD [address] [place] [address] Infectious Diseases 03/02/19 Agueda Ann MD [address] [address] [email or web address] Insurance Assigned Provider 4/6/24 1/6/25 Mely Bhatti, RN [address] [place] [address] [email or web address] 05/12/23 06/09/23 documented as of this encounter Additional Source Comments The information contained in this document represents components of the legal health record. It is not the complete legal health record.[facility]
--- OUTSIDE RECORDS SUMMARY | 2025-01-18 05:34 | XMS_ITS | Encounter Summary ---
Author Organization [facility] Address [address] [place] [address] Phone Care Team Providers Care Transliterator Name Role Phone Agueda Ann MD Primary Care Provider Andie Rossi MD Unavailable [phone] West Doll MD Unavailable Britany Coles MD Unavailable Naun Hoang MD Unavailable + Agueda Ann MD Unavailable Latosha Garcia OT Unavailable Mely Bhatti RN Unavailable [email or web address] Encounter Details Date Type Department Care Team (Late st Contact Info) Description 11/18/2022 Procedure Pass [facility] Cardiovascular And Interventional Radiology 30 [place] [address] Social History Tobacco Use Types Packs/Day Years [...] high school, GED, job training, learning the Vincentian language, technical skills, or developing parenting skills)? [...] documented as of this encounter Care Teams Transliterator Relationship Specialty Start Date End Date Agueda Ann MD [address] [place] [address] PCP - General Family Medicine 02/01/19 Andie Rossi MD 48 [place] [address] Neurology 03/02/19 West Doll MD [address] [place] [address] 104 [place] [address] Cardiology 03/02/19 Britany Coles MD 175 [facility] 140 [place] [address] [email or web address] [email or web address] Surgery 03/02/19 [place] [address] [place] [address] Infectious Diseases 03/02/19 Agueda Ann MD [address] [address] [email or web address] Insurance Assigned Provider 07/02/23 04/02/24 Latosha Garcia, OT 30 [place] [address] [email or web address] Transitions Livestock Brands InspectorProcess Control Operator Therapy 11/24/22 11/25/22 Mely Bhatti, NICOLE 30 [place] [address] [email or web address] PHCM Livestock Brands Inspector 05/12/23 06/09/23 documented as of this encounter Additional Source Comments The information contained in this document represents components of the legal health record. It is not the complete legal health record.[facility]
--- OUTSIDE RECORDS SUMMARY | 2025-01-18 05:34 | XMS_ITS | Encounter Summary ---
Author Organization [facility] Address [address] [place] [address] Phone Care Team Providers Care Racing Board Marker Name Role Phone Agueda Ann MD Primary Care Provider [phone] Andie Rossi MD Unavailable West Doll MD Unavailable [phone] Britany Coles MD Unavailable Naun Hoang MD Unavailable + Agueda Ann MD Unavailable Latosha Garcia OT Unavailable [phone] Latosha Garcia OT Unavailable [phone] Mely Bhatti RN Unavailable [email or web address] Encounter Details Date Type Department Care Team (Late st Contact Info) Description 07/31/2021 Procedure Pass [facility] Endoscopy Admitting Dept Virtual Department 30 [place] [address] Social History Tobacco Use Types Packs/Day Years [...] high school, GED, job training, learning the Nepalese language, technical skills, or developing parenting skills)? [...] documented as of this encounter Care Teams Racing Board Marker Relationship Specialty Start Date End Date Agueda Ann MD [address] [place] [address] PCP - General Family Medicine 02/01/19 Andie Rossi MD [address] [place] [address] Neurology 03/02/19 West Doll MD [address] [place] [address] Cardiology 03/02/19 Britany Coles MD 175 [facility] 140 [place] [phone] [email or web address] 03/02/19 Naun Hoang MD 3300 [facility] [address] [place] [address] Infectious Diseases 03/02/19 Agueda Ann MD [address] [address] [email or web address] Insurance Assigned Provider 07/02/23 04/02/24 Latosha Garcia, OT 30 [place] [address] [email or web address] Transitions Beater Machine OperatorSynchro Assembler Therapy 11/05/22 11/07/22 Latosha Garcia, OT 30 [place] [address] [email or web address] Transitions Beater Machine OperatorSynchro Assembler Therapy 11/24/22 11/25/22 Mely Bhatti RN 30 [place] [address] [email or web address] Center[facility] Beater Machine Operator 05/12/23 06/09/23 documented as of this encounter Additional Source Comments The information contained in this document represents components of the legal health record. It is not the complete legal health record.[facility]
--- OUTSIDE RECORDS SUMMARY | 2025-01-18 05:34 | XMS_ITS | Clinical Summary ---
Author Organization [employer] Address 75 [facility] 7t [place] [address] Care Team Providers Care Internship Name Role Phone Unavailable Primary Care Provider [...] Most Recently Relevant to Health Maintenance Insurance [facility] MEDICAID STAND ADULT
--- OUTSIDE RECORDS SUMMARY | 2025-01-18 05:34 | XMS_ITS | Encounter Summary ---
Author Organization [facility] Address [address] [place] [address] Phone Care Team Providers Care Iron Plastic Bullet Maker Name Role Phone Agueda Ann MD Primary Care Provider [phone] Andie Rossi MD Unavailable [phone] West Doll MD Unavailable [phone] Britany Coles MD Unavailable Naun Hoang MD Unavailable + Agueda Ann MD Unavailable Latosha Garcia OT Unavailable [phone] Latosha Garcia OT Unavailable [phone] Mely Bhatti RN Unavailable [email or web address] Encounter Details Date Type Department Care Team (Late st Contact Info) Description 10/04/2019 Ancillary Orders [facility],Outside Imaging 30 [place] [address] System, Provider Not In, PhD Partners [address] [address] Social History Tobacco Use Types Packs/Day Years [...] as of this encounter Care Teams Iron Plastic Bullet Maker Relationship Specialty Start Date End Date Agueda Ann MD [address] [address] PCP - General Family Medicine 02/01/19 Andie Rossi MD 48 [place] [address] Neurology 03/02/19 West Doll MD [address] [place] [address] 104 [place] [address] Cardiology 03/02/19 Britany Coles MD [address] [place] [address] 140 [place] [phone] Orthopedic Surgery 03/02/19 [place] [address] [place] [address] Infectious Diseases 03/02/19 Agueda Ann MD [address] [address] [email or web address] Insurance Assigned Provider 07/02/23 04/02/24 Latosha Garcia, OT 30 [place] [address] [email or web address] Transitions Line MaintenanceEmail Administrator Therapy 11/05/22 11/07/22 Latosha Garcia, OT 30 [place] [address] [email or web address] Transitions Line MaintenanceEmail Administrator Therapy 11/24/22 11/25/22 Mely Bhatti, NICOLE 30 [place] [address] [email or web address] Line Maintenance 05/12/23 06/09/23 documented as of this encounter Additional Source Comments The information contained in this document represents components of the legal health record. It is not the complete legal health record.[facility]
--- OUTSIDE RECORDS SUMMARY | 2025-01-18 05:34 | XMS_ITS | Encounter Summary ---
Author Organization [employer] Address 75 [facility] 7t [place] [address] Care Team Providers Care Prism Measurer Name Role Phone Unavailable Primary Care Provider Unavailabl e Encounter Details Date Type Department Care Team (Latest Contact Info) Description 06/29/[address] [facility] CONVERSIONS Dental, Provider, DDS Social History [...]
--- OUTSIDE RECORDS SUMMARY | 2025-01-18 05:34 | XMS_ITS | Encounter Summary ---
Author Organization [facility] Address [address] [place] [address] Phone Care Team Providers Care Hooker Operator Name Role Phone Agueda Ann MD Primary Care Provider [phone] Andie Rossi MD Unavailable West Doll MD Unavailable Britany Coles MD Unavailable Naun Hoang MD Unavailable + Agueda Ann MD Unavailable Mely Bhatti RN Unavailable [email or web address] Encounter Details Date Type Department Care Team (Late st Contact Info) Description 12/24/2022 Procedure Pass [facility], [facility] Scan [facility] 30 [place] [address] Social History Tobacco Use Types Packs/Day Years [...] high school, GED, job training, learning the Bhutanese language, technical skills, or developing parenting skills)? [...] 9:29 AM ALEKT Natalya Delgadillo RN * Warren Suicide Severity Rating Scale (Screener/Recent Self-Report) Question [...] documented as of this encounter Care Teams Hooker Operator Relationship Specialty Start Date End Date Agueda Ann MD [address] [address] [email or web address] PCP - General Family Medicine 02/01/19 Andie Rossi MD [address] [place] [address] Neurology 03/02/19 West Doll MD [address] [place] [address] 104 [place] [address] Cardiology 03/02/19 Britany Coles MD [address] [place] [address] 140 [place] [phone] [email or web address] 03/02/19 Naun Hoang MD [address] [place] [address] Infectious Diseases 03/02/19 Agueda Ann MD [address] [address] [email or web address] Insurance Assigned Provider 07/02/23 04/02/24 Mely Bhatti, NICOLE [address] [address] [email or web address] Invoice [email or web address] 05/12/23 06/09/23 documented as of this encounter Additional Source Comments The information contained in this document represents components of the legal health record. It is not the complete legal health record.[facility]
[2025-01-18 06:04] LABS: Anion Gap 14 (12-20); Blood Urea Nitrogen 40 mg/dL (9-16); Calcium 8.6 mg/dL (8.4-10.2); Carbon Dioxide 22 mmol/L (22-29); Chloride 107 mmol/L (96-108); Estimated Glomerular Filt Rate 42; Potassium 4.8 mmol/L (3.3-5.1); Sodium 138 mmol/L (135-145)
== END 2025-01-18 05:32 | disposition home or self-care (01) ==
LOC: HO.MMNH3L 05:31
PROVIDERS: Visit Provider Student in an Organized Health Care Education/Training Program
DX: I69.320 Aphasia following cerebral infarction (principal); G70.00 Myasthenia gravis without (acute) exacerbation; I73.9 Peripheral vascular disease, unspecified
CPT/HCPCS: 36415; 80048

== ENCOUNTER 2025-01-21 05:16 | Outpatient (REF) | payer MEDICARE, MEDICAID, SELFPAY ==
[2025-01-21 05:16] LABS: MANUAL DIFF FLAG NO
--- OUTSIDE RECORDS SUMMARY | 2025-01-21 05:18 | XMS_ITS | Encounter Summary ---
Author Organization [facility] Address [address] [place] [address] Phone Care Team Providers Care Dining Services Manager Name Role Phone Agueda Ann MD Primary Care Provider [phone] Andie Rossi MD Unavailable West Doll MD Unavailable Britany Coles MD Unavailable Naun Hoang MD Unavailable + Agueda Ann MD Unavailable Latosha Garcia OT Unavailable [phone] Latosha Garcia OT Unavailable [phone] Mely Bhatti RN Unavailable [email or web address] Encounter Details Date Type Department Care Team (Late st Contact Info) Description 11/04/2022 Procedure Pass [facility] 30 [place] [address] Social History Tobacco Use Types Packs/Day Years [...] 11/04/2022 1:06 AM Lucita Hirsch, NICOLE * [place] Suicide Severity Rating Scale (Screener/Recent Self-Report) Question [...] documented as of this encounter Care Teams Dining Services Manager Relationship Specialty Start Date End Date Agueda Ann MD [address] [address] [email or web address] PCP - General Family Medicine 02/01/19 Andie Rossi MD [address] [place] [address] Neurology 03/02/19 West Doll MD [address] [place] [address] 104 [place] [address] Cardiology 03/02/19 Britany Coles MD [address] [place] [address] 140 [place] [phone] [email or web address] Orthopedic Surgery 03/02/19 Naun Hoang MD [address] [place] [address] Infectious Diseases 03/02/19 Agueda Ann MD [address] [address] [email or web address] Insurance Assigned Provider 07/02/23 04/02/24 Latosha Garcia, OT 30 [place] [address] [email or web address] Transitions Land InspectorSmoked Meat Preparer Therapy 11/05/22 11/07/22 Latosha Garcia, OT 30 [place] [address] [email or web address] Transitions Land InspectorSmoked Meat Preparer Therapy 11/24/22 11/25/22 Mely Bhatti RN 30 [place] [address] [email or web address] Land Inspector 05/12/23 06/09/23 documented as of this encounter Additional Source Comments The information contained in this document represents components of the legal health record. It is not the complete legal health record.[facility]
--- OUTSIDE RECORDS SUMMARY | 2025-01-21 05:18 | XMS_ITS | Clinical Summary ---
Author Organization [address] Address [address] [place] [id number] Care Team Providers Care Laboratory Sample Carrier Name Role Phone Unavailable Primary Care Provider [...]
--- OUTSIDE RECORDS SUMMARY | 2025-01-21 05:18 | XMS_ITS | Clinical Summary ---
Author Organization [employer] Address 75 [facility] 7t [place] [address] Care Team Providers Care Bi Report Developer Name Role Phone Unavailable Primary Care Provider [...] Most Recently Relevant to Health Maintenance Insurance [facility] MEDICAID STAND ADULT
--- OUTSIDE RECORDS SUMMARY | 2025-01-21 05:18 | XMS_ITS | Encounter Summary ---
Author Organization [facility] Address [address] [place] [address] Phone Care Team Providers Care Measurer Machine Name Role Phone Agueda Ann MD Primary Care Provider Andie Rossi MD Unavailable West Doll MD Unavailable Britany Coles MD Unavailable Naun Hoang MD Unavailable + Agueda Ann MD Unavailable Latosha Garcia OT Unavailable Mely Bhatti RN Unavailable [email or web address] Encounter Details Date Type Department Care Team (Late st Contact Info) Description 11/18/2022 Procedure Pass [facility] Cardiovascular And Interventional Radiology 30 [place] [address] Social History Tobacco Use Types Packs/Day Years [...] high school, GED, job training, learning the [place] language, technical skills, or developing parenting skills)? [...] documented as of this encounter Care Teams Measurer Machine Relationship Specialty Start Date End Date Agueda Ann MD [address] [place] [address] PCP - General Family Medicine 02/01/19 Andie Rossi MD 48 [place] [address] Neurology 03/02/19 West Doll MD [address] [place] [address] 104 [place] [address] Cardiology 03/02/19 Britany Coles MD 175 [facility] 140 [place] [phone] [email or web address] Surgery 03/02/19 [place] [address] [place] [address] Infectious Diseases 03/02/19 Agueda Ann MD [address] [address] [email or web address] Insurance Assigned Provider 07/02/23 04/02/24 Latosha Garcia, OT 30 [place] [address] [email or web address] Transitions Car BlockerAnimal Attendants And Trainers Therapy 11/24/22 11/25/22 Mely Bhatti, NICOLE 30 [place] [address] [email or web address] PHCM Car Blocker 05/12/23 06/09/23 documented as of this encounter Additional Source Comments The information contained in this document represents components of the legal health record. It is not the complete legal health record.[facility]
--- OUTSIDE RECORDS SUMMARY | 2025-01-21 05:18 | XMS_ITS | Patient Health Record ---
Author Organization [address] [place] [address] [address] [facility] Address [address] [id number] Care Team Providers Care Supervisor Compressed Yeast Name Role Phone BARTOLO Dunbar Supriya [phone] Reason For Referral No Information Plan Of Treatment No Information
--- OUTSIDE RECORDS SUMMARY | 2025-01-21 05:18 | XMS_ITS | Encounter Summary ---
Author Organization [employer] Address [address] 7t [place] [address] Care Team Providers Care Mucker Operator Name Role Phone Unavailable Primary Care Provider Unavailabl e Reason for Visit * Reason Onset Date Comments medical clearance 05/27/2022 Encounter Details Date Type Department Care Team (Late st Contact Info) Description 05/27/2022 Telephone [facility] ADULT DENTAL [address] [place] [address] Davonte Cunningham DDS medical clearance Social History [...] was for medical clearance. Pls re send [phone] * Telephone Encounter - Lucina Leigh - [...] was for medical clearance. Pls re send [phone] documented in this encounter Plan of Treatment Not on file documented as of this encounter Visit Diagnoses Not on filedocumented in this encounter
--- OUTSIDE RECORDS SUMMARY | 2025-01-21 05:18 | XMS_ITS | Data Portability ---
Author Organization [facility], Main Office Address [address] [address] [address] [place] [address] Care Team Providers Care Mixing Operator Name Role Phone VINI DOWLING 1ST FLOOR [...] Address Organization Details Recorded Time Diabetes mellitus 40019008 Active 2023 MIRI NORTON [address] [facility], [address], [place], [address], [facility] 4 20:18:04 Essential hypertensio n 79529411 Active 2023 MIRI NORTON [address] [facility], [address], [place], [address], [facility] 4 20:18:10 Hyperlipide reinier 22947057 Active 2023 MIRI NORTON [address] [place] [address], [address], [place], [address], [facility] 4 20:18:16 Femoral-pop liteal artery bypass graft Completed 202309/01/2023 [address]IRI NORTON [address] [place] [address], [address], [place], [address], [facility] 4 22:16:23 Anemia 696499995 Active 2023 MIRI NORTON [address] [place] [address], [address], [place], [address], [facility] 4 20:20:45 Cerebrovasc ular accident 661391346 Active [address]ON [address] [place] [address], [address], [place], [address], [facility] 4 20:21:06 Femoro-ante rior tibial bypass graft Completed 202309/01/2023 MIRI NORTON [address] [place] [address], [address], [place], [address], [facility] 4 22:16:23 Chronic kidney disease stage 3 253895621 Active 2023 MIRI NORTON [address] [place] [address], [address], [place], [address], [facility] 4 20:28:49 Peripheral vascular disease 060546532 Active 2023 MIRI NORTON [address] [place] [address], [address], [place], [address], [place] [facility] 20:29:56 Asthenia 36797609 Active 2023 PÉREZ LUNDBERG, MIRI [address], [address], [place], [address], [facility] 20:30:45 Insomnia 317283120 Active 2023 PÉREZ LUNDBERG, MIRI [address], [address], [place], [address], [facility] 4 21:49:49 Constipatio n 71571684 Active 2023 MIRI NORTON [address], [address], [place], [address], [facility] 4 21:52:14 Acute kidney injury 09593692 Active 2023 MIRI NORTON [address], [address], [place], [address], [facility] 4 21:56:55 Hypocalcemi a 9598050 Completed 202309/01/2023 MIRI NORTON [address], [address], [place], [address], [facility] 4 22:16:23 Myasthenia gravis 63968570 Active 2023 MIRI NORTON [address], [address], [place], [address], [facility] 4 22:10:42 Aphasia 60573000 Completed 202309/01/2023 MIRI NORTON [address], [address], [place], [address], [facility] 4 22:16:23 Vascular dementia 799417624 Active 2023 MIRI NORTON [address], [address], [place], [address], [facility] 4 13:06:33 Amputated below knee 756428290 Active 2023 MIRI NORTON [address], [address], [place], [address], [facility] 4 16:38:11 Delirium 1481268 Active 2023 MIRI NORTON [address], [address], [place], [address], [facility] 4 16:54:43 Dysphagia 40963846 Active 2023 JOHN NORTONP [address], [address], [place], [address], [facility] 4 16:55:09 Toxic encephalopa thy 37827778 Active 2023 JOHN NORTONP [address] [facility], [address], [place], [address], [facility] 4 16:55:43 Hypothyroid ism 77593799 Active 2023 JOHN NORTONP [address] [facility], [address], [place], [address], [facility] 4 22:18:37 Anxiety 98496421 Active 2023 PÉREZ LUNDBERG [facility] [address] [facility], [address], [place], [address], [facility] 4 22:24:04 Carotid artery stenosis 64155944 Active 2023 MIRI NORTON [address] [facility], [address], [place], [address], [facility] 4 12:10:00 Problem Notes None [...] [address] [facility], [address], [place], [address], [facility] 4 14:16:49 Date Recorded Body height Heart rate Respiratory rate Body temperature Oxygen saturation Oxygen saturation in Arterial blood by Pulse oximetry Systolic And Diastolic Provider Name and Address Organization Details Last Updated DateTime 4 165.1 cm 73 /min 18 /min 98 [degF] 94 % 94 % 111/76 mm[Hg] MIRI NORTON [address] [facility], [facility] [address], [place], [address], [facility] 4 11:35:13 Date Recorded Body height Respiratory rate Body temperature Oxygen saturation Oxygen saturation in Arterial blood by Pulse oximetry Heart rate Systolic And Diastolic Provider Name and Address Organization Details Last Updated DateTime 4 165.1 cm 18 /min 98 [degF] 94 % 94 % 68 /min 118/71 mm[Hg] MIRI NORTON [address] [facility], [address], [place], [address], [facility] 4 16:01:39 Date Recorded Body height Body mass index (BMI) Body weight Heart rate Respiratory rate Body temperature Oxygen saturation Oxygen saturation in Arterial blood by Pulse oximetry Systolic And Diastolic Provider Name and Address Organization Details Last Updated DateTime 4 165.1 cm 28.6 kg/m2 99672.8 9 g 73 /min 16 /min 98.4 [degF] 100 % 100 % 135/68 mm[Hg] MIRI NORTON [address] [facility], [address], [place], [address], [facility] 4 15:14:16 Social History Question Answer Notes LastModified by Organizat ion Details LastModified Time Tobacco Smoking Status Never Smoker MIRI NORTON [address] [facility], [address], [place], [address], [facility] 06/30/2023 02:31:25 Do You Have An Advance [...] Do You Have A Medical Power Of Single End Sewer? Yes Information not available 07/22/2023 What Was [...] Time Tdap 9 completed Elle South null, [facility] [address] 07/01/2023 13:25:18 Tdap 8 completed Elle [place] null, [facility] [address] 07/01/2023 13:25:33 Pneumococcal conjugate PCV20, polysaccharide MYH168 conjugate, adjuvant, PF 2 completed Elle South [facility], [facility] [address] 07/01/2023 13:25:55 pneumococcal polysaccharide PPV23 4 completed Elle South null, [facility] [address] 07/01/2023 13:26:09 pneumococcal polysaccharide PPV23 7 completed Elle South [facility] 07/01/2023 13:26:18 influenza, unspecified formulation 2 completed Elle South [facility] 07/01/2023 13:26:47 influenza, unspecified formulation 3 completed Elle Brannon [facility], [facility] [address] 07/01/2023 13:26:55 SARS-COV-2 (COVID-19) vaccine, UNSPECIFIED 1 completed Elle Brannon [facility] 07/01/2023 13:27:17 SARS-COV-2 (COVID-19) vaccine, UNSPECIFIED 1 completed Elle Brannon [facility] 07/01/2023 13:27:40 SARS-COV-2 (COVID-19) vaccine, UNSPECIFIED 1 completed Elle Brannon [facility], [facility] [address] 07/01/2023 13:27:55 SARS-COV-2 (COVID-19) vaccine, UNSPECIFIED 2 [facility] 13:28:04 SARS-COV-2 (COVID-19) vaccine, UNSPECIFIED 2 completed [facility]23 13:28:24 SARS-COV-2 (COVID-19) vaccine, UNSPECIFIED 3 completed Elle Brannon [facility] 07/01/2023 13:28:37 zoster, unspecified formulation 9 completed Elle South [facility] 07/01/2023 13:29:06 zoster, unspecified formulation 9 completed Elle South [facility] 07/01/2023 13:29:21 Past Encounters Encounter ID Performer Location Encounter Start Date Encounter Closed Date Diagnosis/Indication Diagnosis SNOMED-CT Code Diagnosis ICD10 Code Diagnosis IMO Codes Diagnosis Note [id number] MIRI NORTON [address] [place] [address] 06/29/2023 15:34:40 07/22/2023 14:35:38 Peripheral vascular disease 968915445 I73.9 s/p right femoral endarterec bridget with [...] rightfollo w up with vascular 06/29 Asthenia 53543670 R53.1 hx of myasthenia gravisPT/O T eval and treat Diabetes mellitus 061948 09 E11.9 A1c 5.7 on 06/23hospit al records indicate that she states she is taking for constipati on, she is not sure she is a diabetic.c ontinue metformin 500 mg BIDcontinu e to monitor FSfollow-u p with PCP after discharge for further management Essential hypertension 25481384 I10 continue lisinopril 5 mg dailyconti nue metoprolol 50 mg bidfurosem oxana 40 mg dailymonit or BP /labs Hyperlipidemia 73801277 E78.5 atorvastat in 40 mg dailymonit or lipids prn Insomnia 085104666 G47.0 0 continue melatonin 9 mg hscontinue trazadone 12.5 mg hs prn Constipation 53791229 K5 9.00 continue colace 100 mg bidcontinu e miralax 17 gm dailyincre ase oral hydration Anemia 091088290 D64.9 continue ferrous sulfate 325 mg dailymonit or CBCH&H stable at 7.9/25.1 Hypocalcemia 4022738 E83 .51 continue calcium carbonate 500 mg dailyconti nue cholecalci ferol 1000 u daily Myasthenia gravis 021197 04 G70.00 carrying dxmaintain safety/pre cautionsno t on medication Cerebrovas cular accident 149375966 I63.9 carrying dx Chronic ki dney disease stage 3 844460863 N18.30 mahi resolved in acute careavoid nephrotoxi c medication smonitor labs [id number] [facility] [address] [place] [address] 06/30/2023 11:39:21 07/04/2023 14:42:16 Bleeding from nose 392977262 R04.0 uncontroll ed bleeding from right narespt is on multiple anticoag( asa, eliquis and plavix) held this morning.wi ll send to ED for eval and tx. [id number] MIRI NORTON [address] [place] [address] 07/12/2023 11:03:46 07/19/2023 11:10:58 Open wound of right foot 8081319191 7784041 S91.301A dorsal right foot with wound vacDo Not remove wound vac, she has appt with vascular on 07/13 Surgical i ncision wound of skin 7855071376 00 R23.8 right lateral mid thigh with 22 nehemias right low leg corral 12 staple right lower extremity medial thigh wound with packing Peripheral vascular disease 254355395 I73.9 s/p right femoral endarterec bridget with [...] rightfollo w up with vascular 06/29 Asthenia 43064258 R53.1 hx of myasthenia gravisPT/O T eval and treat Diabetes mellitus 896553 09 E11.9 A1c 5.7 on 06/23hospit al records indicate that she states she is taking for constipati on, she is not sure she is a diabetic.c ontinue metformin 500 mg BIDcontinu e to monitor FSfollow-u p with PCP after discharge for further management Essential hypertension 15823698 I10 continue lisinopril 5 mg dailyconti nue metoprolol 50 mg bidfurosem oxana 40 mg dailymonit or BP /labs Hyperlipidemia 78695123 E78.5 atorvastat in 40 mg dailymonit or lipids prn Insomnia 718429051 G47.0 0 continue melatonin 9 mg hscontinue trazadone 12.5 mg hs prn Constipation 60060516 K5 9.00 continue colace 100 mg bidcontinu e miralax 17 gm dailyincre ase oral hydration Anemia 988009186 D64.9 baseline 7.9-8decre ased to 7.0 due to epistaxiss he was transfused 2 PRBCsconti nue ferrous sulfate 325 mg dailymonit or CBC Hypocalcemia 4768160 E83 .51 continue calcium carbonate 500 mg dailyconti nue cholecalci ferol 1000 u daily Myasthenia gravis 848734 04 G70.00 carrying dxmaintain safety/pre cautionsno t on medication Cerebrovas cular accident 187490589 I63.9 carrying dx Chronic ki dney disease stage 3 847734883 N18.30 mahi resolved in acute careavoid nephrotoxi c medication smonitor labs Aphasia 74500588 R47.01 hx of CVAIntermi ttent aphasia/Wo rd finding difficulty no new stroke seen on brain MRI.Suspec t vascular dementia, may have some hypoperfus ion given her anemia. [id number] MIRI NORTON [address] [place] [address] rd [place] [address] 07/18/2023 10:15:58 07/22/2023 15:25:22 Open wound of right foot 0108108839 7296015 S91.301A s/p wound debridemen t 07/13, will be returning to vascular 07/19 for integra placement and wound vac Surgical i ncision wound of skin 5751226667 00 R23.8 right lateral mid thigh with 22 staplesrig ht low leg corral 12 staplerigh t lower extremity medial thigh wound with packingnur sing to removed on 07/18 [facility] Peripheral vascular disease 857454854 I73.9 s/p right femoral endarterec bridget with [...] 6 prncontinu e lidocaine patch right Asthenia 16133524 R53.1 hx of myasthenia gravisPT/O T eval and treat Diabetes mellitus 335888 09 E11.9 A1c 5.7 on 06/23hospit al records indicate that she states she is taking for constipati on, she is not sure she is a diabetic.c ontinue metformin 500 mg BIDcontinu e to monitor FSfollow-u p with PCP after discharge for further management Essential hypertension 44888865 I10 continue lisinopril 5 mg dailyconti nue metoprolol 50 mg bidfurosem oxana 40 mg dailymonit or BP /labs Constipation 53842862 K5 9.00 continue colace 100 mg bidcontinu e miralax 17 gm dailyincre ase oral hydration Anemia 693009973 D64.9 baseline 7.9-8decre ased to 7.0 due to epistaxiss he was transfused 2 PRBCsconti nue ferrous sulfate 325 mg dailymonit or CBC Aphasia 66174873 R47.01 hx of CVAIntermi ttent aphasia/Wo rd finding difficulty no new stroke seen on brain MRI.Suspec t vascular dementia, may have some hypoperfus ion given her anemia. [id number] Afia Tierney MD [address] [place] [address] 07/22/2023 14:24:36 08/15/2023 12:08:31 Open wound of right foot 6832644711 0833752 S91.301A Continue wound care as ordered.F/ U with surgeon as planned for further debridemen t and wound vac placement. Surgical i ncision wound of skin 0422683879 00 R23.8 Wounds healing well.Stale s removed. Peripheral vascular disease 432014771 I73.9 s/p right femoral endarterec bridget with [...] mg q 6 hrs prnMonitor sxs. Asthenia 41878394 R53.1 As above. Diabetes mellitus 545680 09 E11.9 HgA1C was 5.7 on 06/23All sugars <200 since here, so fingerstic ks d/c'd on 07/18Contin ue metformin 500 mg BIDMonitor fingerstic ks prn. Essential hypertension 76457620 I10 BP in good control on lisinopril 5 mg qd, metoprolol 50 mg BID, and furosemide 40 mg qdMonitor BP and labs. Constipation 38825437 K5 9.09 Continue bowel meds as ordered.Mo nitor bowel function. Anemia 819108752 D64.89 Multifacto rial.Galindo nue ferrous sulfate 325 mg qdMonitor CBC Aphasia 65701765 R47.01 As above. Hyperlipidemia 89604113 E78.49 Continue atorvastat in 40 mg qdMonitor lipids yearly Insomnia 460284125 G47.0 0 Continue melatonin 9 mg qhs and trazadone 12.5 mg qhs prnMonitor sleep patterns. Hypocalcemia 1937697 E83 .51 Doesn't have hypocalcem ia.Correct ed Ca+ os 9.08Likely is on Ca+ and vit D for osteopenia .Continue calcium carbonate 500 mg qd and cholecalci ferol 1000 IU qd. Myasthenia gravis 837896 04 G70.00 Carrying dxOn no meds at this time.Very deconditio kelsy.Needs PT/OT for strengthen ing, balance, gait training, safety and function.C ontinue fall precaution s.Monitor for safety. Cerebrovas cular accident 507239608 I63.89 With mod to severe aphasia.SL P eval and tx.Continu e meds as above.Prakash emory for new neuro sxs. Chronic ki dney disease stage 3 788227710 N18.32 At baseline.C ontinue to avoid nephrotoxi c meds as able.Monit or labs.Renal consult prn. Anxiety 74912423 F41.1 Very anxious tonight. Anxiety makes it even harder for her to get her words out.Will start lorazepam 0.5 mg q 6 hrs prn [id number] MIRI NORTON [address] [place] [address] [place] [address] 07/25/2023 12:45:25 07/26/2023 15:42:48 Open wound of right foot 1747253366 2333612 S91.301A 07/19: s/p wound debridemen tcontinue wound treatment as ordered.fo llow up with [facility] on 08/01 at 130 pm Surgical i ncision wound of skin 2311630587 00 R23.8 right lateral mid thigh - HEALING NEHEMIAS REMOVED IN ACUTE CAREright low leg corrla healingrig ht lower extremity medial thigh wound with packing Peripheral vascular disease 285591190 I73.9 s/p right femoral endarterec bridget with [...] 6 prncontinu e lidocaine patch right Asthenia 81305755 R53.1 hx of myasthenia gravisPT/O T eval and treat Diabetes mellitus 994099 09 E11.9 continue metformin 500 mg BIDcontinu e to monitor FSfollow-u p with PCP after discharge for further management Essential hypertension 62187494 I10 continue lisinopril 5 mg dailyconti nue metoprolol 50 mg bidfurosem oxana 40 mg dailymonit or BP /labs Constipation 57020034 K5 9.00 continue colace 100 mg bidschedul ed miralax 17 gm daily and senna 8.6 mg daily.incr ease oral hydration Anemia 039665190 D64.9 see hpitoday 6.7 -will recheck on 07/25contin ue ferrous sulfate 325 mg dailycolor is normal, there is no SOB, extremitie s are warm.monit or CBC [id number] MIRI NORTON [address] [place] [address] [place] [address] 07/29/2023 09:49:56 08/02/2023 10:28:17 Open wound of right foot 8554011020 0062009 S91.301A 07/19: s/p wound debridemen tcontinue wound treatment as ordered.fo llow up with [facility] on 08/01 at 130 pm Peripheral vascular disease 451365355 I73.9 s/p right femoral endarterec bridget with [...] prncontinu e lidocaine patch right Diabetes mellitus 709613 09 E11.9 continue metformin 500 mg BIDcontinu e to monitor FSfollow-u p with PCP after discharge for further management Essential hypertension 47786514 I10 continue lisinopril 5 mg dailyconti nue metoprolol 50 mg bidfurosem oxana 40 mg dailymonit or BP /labs Anemia 410474075 D64.9 see hpicontinu e ferrous sulfate 325 mg dailycolor is normal, there is no SOB, extremitie s are warm.monit or CBC [id number] MIRI NORTON [facility] [address] [facility] [place] [address] 08/05/2023 09:45:20 08/09/2023 11:18:14 Open wound of right foot 0303506545 6325870 S91.301A 07/19: s/p wound debridemen tcontinue wound treatment as ordered.fo llow up with [facility] on 08/02 with new wound care orders-[facility] care for R foot: Apply saline moistened Promogran over Puraply three times weekly. Peripheral vascular disease 011305071 I73.9 s/p right femoral endarterec bridget with [...] prncontinu e lidocaine patch right Diabetes mellitus 338620 09 E11.9 continue metformin 500 mg BIDcontinu e to monitor FSfollow-u p with PCP after discharge for further management Essential hypertension 58357212 I10 continue lisinopril 5 mg dailyconti nue metoprolol 50 mg bidfurosem oxana 40 mg dailymonit or BP /labs Anemia 005791580 D64.9 see hpicontinu e ferrous sulfate 325 mg dailycolor is normal, there is no SOB, extremitie s are warm.monit or CBC [id number] [facility] [address] [facility] [place] [address] 08/09/2023 08:23:37 08/12/2023 11:43:31 Open wound of right foot [id number] 0165635 S91.301A 07/19: s/p wound debridemen tcontinue wound treatment as ordered.fo llow up with [facility] on 08/02 with new wound care orders-[facility] care for R foot: Apply saline moistened Promogran over Puraply three times weekly.[facility]. Peripheral vascular disease 563779054 I73.9 s/p right femoral endarterec bridget with [...] prncontinu e lidocaine patch right Diabetes mellitus 788615 09 E11.9 continue metformin 500 mg BIDcontinu e to monitor FS Essential hypertension 68208216 I10 continue lisinopril 5 mg dailyconti nue metoprolol 50 mg bidfurosem oxana 40 mg dailymonit or BP /labs Anemia 583569491 D64.9 H/H has been stable.con tinue ferrous sulfate 325 mg dailycolor is normal, there is no SOB, extremitie s are warm.monit or CBC [id number] MIRI NORTON [address] [place] [address] 08/15/2023 13:44:19 08/18/2023 13:20:18 Open wound of right foot 0954642389 6724101 S91.301A 07/19: s/p wound debridemen tcontinue wound treatment as ordered.fo llow up with [facility] on 08/02 with new wound care orders-[facility] care for R foot: Apply saline moistened Promogran over Puraply three times weekly.07/26 5 :s/p right foot debridemen t, applicatio n of skin substitute graftfollo w up appt 08/15 at [facility] with vascular. Peripheral vascular disease 593499493 I73.9 s/p right femoral endarterec bridget with [...] prncontinu e lidocaine patch right Diabetes mellitus 076962 09 E11.9 continue metformin 500 mg BIDcontinu e to monitor FS Essential hypertension 27877689 I10 continue lisinopril 5 mg dailyconti nue metoprolol 50 mg bidfurosem oxana 40 mg dailymonit or BP /labs Anemia 391244462 D64.9 H/H 6.6/21.2- will repeat labsconsid er adding ascorbic acid dailyconti nue ferrous sulfate 325 mg dailycolor is normal, there is no SOB, extremitie s are warm.monit or CBC [id number] MIRI NORTON [address] [place] [address] 08/16/2023 08:21:08 08/18/2023 15:50:07 Open wound of right foot 0084179776 1969734 S91.301A see HPI with new finding today,07/19 : s/p wound debridemen :s/p right foot debridemen t, applicatio n of skin substitute graft08/10: tuesday morning sent back to S for excessive wound bleeding thru dressings- transfused 1 unit of packed red blood cells.08/11 : returned from [facility].: abnormal H/H 6.3/19.9 Peripheral vascular disease 169871141 I73.9 s/p right femoral endarterec bridget with [...] 6 prncontinu e lidocaine patch right Anemia 146730556 D64.9 H/H 6.3/19.9co ntinue ferrous sulfate 325 mg dailycolor is pale there is no SOB, extremitie s are warm, right foot cold. [id number] M[facility] NORT[facility] [address] [place] [address] [place] [address] 08/29/2023 12:13:56 09/05/2023 15:08:58 Amputated below knee 960769277 Z89.519 Critical limb ischemia of right lower extremity now s/p right below knee amputation .continue oxycodone 5 mg q 6 prnfollow up with vascular on 09/01/23 Peripheral vascular disease 204472112 I73.9 s/p below knee amputation continue asa, plavix and eliquiscon tinue oxycodonec ontinue lyrica 150 mg qd and 200 mg at HS Delirium 8547210 R41.0 resolved in acute careof note she is at baseline status, she is alert and oriented. Dysphagia 65250485 R13.1 0 resolvedsh e was seen by speech in acute acute care, continue reg diet with thin liquids Toxic encephalopathy 283 78460 G92.9 resolved in acute careammoni a level 20 on 08/24 Diabetes mellitus 872573 09 E11.9 continue metformin 500 mg BIDcontinu e to monitor FS Essential hypertension 79490623 I10 continue lisinopril 5 mg dailyconti nue metoprolol 50 mg bidfurosem oxana 40 mg dailymonit or BP /labs Hypothyroidism 87618084 E03.9 continue levothyrox ine 200 mcgtsh 8- recheck labs in 6-8 weeks Hyperlipidemia 58975593 E78.49 atorvastat in 40 mg dailymonit or lipids prn Anemia 341584614 D64.9 continue ferrous sulfate 325 mg dailycont. Vit D 1000u daily Constipation 37995330 K5 9.09 continue colace 100 mg bidschedul ed miralax 17 gm daily and senna 8.6 mg daily.incr ease oral hydration Anxiety 80586197 F41.9 continue ativan 0.5 mg q6 prnpsych eval and tx- she had recent amputation , I think she will benefit from speaking with psych, she will need support coping with limp loss. [id number] MIRI NORTON [address] [place] [address] [place] [address] 08/31/2023 10:12:07 09/05/2023 16:19:16 Cough 76964784 R05.9 08/29: non productive congested cough- is not interrupti ng with sleepchest xay showed no active infiltrate s or changes ofpulmonar y venous congestion or evidence of a pleural effusion.w ill start mucinex 600 mg q12 for 7 days and re eval. Amputated below knee 299 063889 Z89.519 Critical limb ischemia of right lower extremity now s/p right below knee amputation .continue oxycodone 5 mg q 6 prnfollow up with vascular on 09/01/23PT/O T eval and treatment for conditioni ng and strengthen ing. Peripheral vascular disease 040772798 I73.9 s/p below knee amputation continue asa, plavix and eliquiscon tinue oxycodonec ontinue lyrica 150 mg qd and 200 mg at HS Essential hypertension 62133587 I10 continue lisinopril 5 mg dailyconti nue metoprolol 50 mg bidfurosem oxana 40 mg dailymonit or BP /labs Hypothyroidism 41953207 E03.9 continue levothyrox ine 200 mcgtsh 8- recheck labs in 6-8 weeks Anxiety 40968041 F41.9 continue ativan 0.5 mg q6 prnpsych eval and tx- she had recent amputation , I think she will benefit from speaking with psych, she will need support coping with limp loss.mood is stable today. [id number] MIRI NORTON [address] [address] 09/05/2023 08:59:26 09/08/2023 16:20:28 Cough 29605477 R05.9 resolved Amputated below knee 299 346099 Z89.519 right below knee amputation .continue oxycodone 5 mg q 6 prncontinu e PT/OT eval and treatment for conditioni ng and strengthen ing.contin ue wound care Betadine, dry gauze, the stump combustion engineer and the amputation shield. Peripheral vascular disease 240545824 I73.9 s/p below knee amputation continue asa, plavix and eliquiscon tinue oxycodonec ontinue lyrica 150 mg qd and 200 mg at HS Essential hypertension 84732313 I10 continue lisinopril 5 mg dailyconti nue metoprolol 50 mg bidfurosem oxana 40 mg dailymonit or BP /labs Hypothyroidism 62110068 E03.9 continue levothyrox ine 200 mcgtsh 8- recheck labs in 6-8 weeks Anxiety 96772508 F41.9 continue ativan 0.5 mg q6 prnshe was seen by adjunct psychology instructor who is recommendi ng starting duloxetine , benfits discuused ,patient will like to think about it. Carotid ar dahlia stenosis 24786850 I65.29 stent placement in juner. Amanda would like her on aspirin and plavix for 3 months post op, then can resume aspirin and eliquis.Sh e will need a carotid duplex later on this summer to recheck the right carotid, determine whether to reinterven e on the stent. [id number] MIRI NORTON JOSEY [address] [place] [address] 09/07/2023 11:22:32 09/09/2023 08:57:56 Amputated below knee 932723609 Z89.519 right below knee amputation .continue oxycodone 5 mg q 6 prncontinu e PT/OT eval and treatment for conditioni ng and strengthen ing.contin ue wound care Betadine, dry gauze, the stump combustion engineer and the amputation shield. Peripheral vascular disease 866629260 I73.9 s/p below knee amputation continue asa, plavix and eliquiscon tinue oxycodonec ontinue lyrica 150 mg qd and 200 mg at HS Essential hypertension 59441668 I10 continue lisinopril 5 mg dailyconti nue metoprolol 50 mg bidfurosem oxana 40 mg dailymonit or BP /labs Hypothyroidism 07340949 E03.9 continue levothyrox ine 200 mcgtsh 8- recheck labs in 6-8 weeks Anxiety 13540545 F41.9 continue ativan 0.5 mg q6 prnshe was seen by adjunct psychology instructor who is recommendi ng starting duloxetine , benfits discuused ,patient will like to think about it. Carotid ar dahlia stenosis 15466168 I65.29 stent placement in juner. Marecki would like her on aspirin and plavix for 3 months post op, then can resume aspirin and eliquis.Sh e will need a carotid duplex later on this summer to recheck the right carotid, determine whether to reinterven e on the stent. [id number] MIRI NORTON [facility] JOSEY [address] [place] [phone] 09/12/2023 11:21:52 09/14/2023 16:46:41 Amputated below knee [id number] Z89.519 right below knee amputation .continue oxycodone 5 mg q 6 prncontinu e PT/OT eval and treatment for conditioni ng and strengthen ing.contin ue wound care Betadine, dry gauze, the stump combustion engineer and the amputation shield. Peripheral vascular disease 580065854 I73.9 s/p below knee amputation continue asa, plavix and eliquiscon tinue oxycodone Q 6continue lyrica 150 mg qd and 200 mg at HS Essential hypertension 14740127 I10 continue lisinopril 5 mg dailyconti nue metoprolol 50 mg bidfurosem oxana 40 mg dailymonit or BP /labs Hypothyroidism 63254958 E03.9 continue levothyrox ine 200 mcgtsh 8- recheck labs in 6-8 weeks Constipation 96247524 K5 9.09 she reports that she has [...] evening, will order imaging.in crease oral hydration [id number] MIRI NORTON VINI DOWLING [address] [place] [phone] 09/15/2023 09:07:09 09/21/2023 10:30:12 Amputated below knee 191786269 Z89.519 right below knee amputation .continue oxycodone 5 mg q 6 prncontinu e PT/OT eval and treatment for conditioni ng and strengthen ing.contin ue wound care Betadine, dry gauze, the stump combustion engineer and the amputation shield. Peripheral vascular disease 933576222 I73.9 s/p below knee amputation continue asa, plavix and eliquiscon tinue oxycodone Q 6continue lyrica 150 mg qd and 200 mg at HS Essential hypertension 71511002 I10 continue lisinopril 5 mg dailyconti nue metoprolol 50 mg bidfurosem oxana 40 mg dailymonit or BP /labs Hypothyroidism 43999643 E03.9 labs completed on 09/06 seen today and noted with TSH 16.3 and T4 5.1she is currently taking levothyrox ine 200 mcg daily, will increase to 225 mcg and recheck 10/26 or sooner.she reports being tired at times but is not having any other sx at this time Constipation 86228223 K5 9.09 see hpinormact felipe bowel soundscont inue colace 100 mg bidcontinu e miralax 17 gm daily and increase senna 8.6 mg to BID [id number] Afia Tierney MD [address] [place] [address] 09/19/2023 15:52:03 09/21/2023 10:49:23 Amputated below knee 109893385 Z89.511 As above. Peripheral vascular disease 092468587 I73.89 S/P right BKA.Contin ue Plavix 75 [...] stapes out then and then can start combustion engineer.P rosthetics consult when ready. Essential hypertension 69732790 I10 BP remains in good control on lisinopril 5 mg qd, metoprolol 50 mg BID, and furosemide 40 mg qdMonitor BP and labs. Hypothyroidism 98923878 E03.9 Last TSH sl. high, with nl FT4, but low FT3.Contin ue levothyrox ine 225 mcgRecheck TSH as planned. Constipation 95450445 K5 9.09 No c/o today.Cont inue bowel meds as ordered.Mo nitor bowel function. Carotid ar dahlia stenosis 18819246 I65.29 S/P stent placement in 06/2023.To be on ASA and Plavix x 3 months.The n can stop Plavix.To have repeat U/S next month [id number] MIRI NORTON [facility] [address] [place] [address] 09/22/2023 13:52:47 09/23/2023 15:18:26 Amputated below knee 819683439 Z89.519 right below knee amputation .continue oxycodone 5 mg q 6 prncontinu e PT/OT for conditioni ng and strengthen ing.contin ue wound care Betadine, dry gauze, the stump combustion engineer and the amputation shield.lupe sing states wound healing without s/sx of infection. Peripheral vascular disease 114902508 I73.9 continue asa, plavix and eliquiscon tinue oxycodone Q 6continue lyrica 150 mg qd and 200 mg at HS Essential hypertension 27647414 I10 continue lisinopril 5 mg dailyconti nue metoprolol 50 mg bidfurosem oxana 40 mg dailymonit or BP /labs Hypothyroidism 39545512 E03.9 Continue levothyrox ine 225 mcgrecheck TSH around 10/26 [id number] MIRI NORTON [facility] [address] [place] [address] 09/27/2023 11:23:38 10/18/2023 07:43:35 Amputated below knee 636864114 Z89.519 right below knee amputation .continue oxycodone 5 mg q 6 prncontinu e PT/OT for conditioni ng and strengthen ing.contin ue wound care Betadine, dry gauze, the stump combustion engineer and the amputation shield.lupe sing states wound healing without s/sx of infection. Peripheral vascular disease 967935000 I73.9 continue asa, plavix and eliquiscon tinue oxycodone Q 6continue lyrica 150 mg qd and 200 mg at HS Essential hypertension 11502210 I10 continue lisinopril 5 mg dailyconti nue metoprolol 50 mg bidfurosem oxana 40 mg dailymonit or BP /labs Hypothyroidism 09441035 E03.9 Continue levothyrox ine 225 mcgrecheck TSH around 8 Anxiety 31323519 F41.9 continue ativan 0.5 mg q6 prnshe has agreed to try antidepres santshe was started on fluoxetine 20 mg daily on 09/18will monitor mood and behavior Diabetes mellitus 317565 09 E11.9 no recent BGL, will order weekly checks.con tinue metformin 500 mg BIDcontinu e to monitor FS [id number] MIRI NORTON [address] [address] 10/04/2023 09:15:00 10/18/2023 08:13:38 Amputated below knee 094879384 Z89.519 right below knee amputation .continue oxycodone 5 mg q 6 prncontinu e PT/OT for conditioni ng and strengthen ing.contin ue wound care Betadine, dry gauze, the stump combustion engineer and the amputation shield.lupe [place] states wound healing without s/sx of infection. she will have remaining stable removed this upcoming friday 10/06. Peripheral vascular disease 736627778 I73.9 continue asa, plavix and eliquiscon tinue oxycodone Q 6continue lyrica 150 mg qd and 200 mg at HS Essential hypertension 06706877 I10 continue lisinopril 5 mg dailyconti nue metoprolol 50 mg bidfurosem oxana 40 mg dailymonit or BP /labs Hypothyroidism 34266639 E03.9 Continue levothyrox ine 225 mcgrecheck TSH around 10/26 Anxiety 15048387 F41.9 continue ativan 0.5 mg q6 prnshe has agreed to try antidepres santshe was started on fluoxetine 20 mg daily on 09/18will monitor mood and behavior Diabetes mellitus 232211 09 E11.9 no recent BGL, will order weekly checks.con tinue metformin 500 mg BIDcontinu e to monitor FS7/724 BGL 120 [id number] MIRI NORTON [address] [address] 10/06/2023 08:54:05 10/18/2023 08:26:39 Amputated below knee 718265421 Z89.519 right below knee amputation .continue oxycodone 5 mg q 6 prn- will change to 24 prn and eventually stop of noted she has not used in 3 days.galindo nue PT/OT for conditioni ng and strengthen ing.contin ue wound care Betadine, dry gauze, the stump combustion engineer and the amputation shield.wou nd healing without s/sx of infection. she will have remaining nehemias removed this upcoming friday 10/06. Peripheral vascular disease 758981456 I73.9 continue asa, plavix and eliquiscon tinue oxycodone Q 6continue lyrica 150 mg qd and 200 mg at HS Essential hypertension 22448879 I10 continue lisinopril 5 mg dailyconti nue metoprolol 50 mg bidfurosem oxana 40 mg dailymonit or BP /labs Anxiety 16496343 F41.9 continue ativan 0.5 mg q6 prnshe has agreed to try antidepres santshe was started on fluoxetine 20 mg daily on 09/18[facility] monitor mood and behavior [id number] [facility]I [facility]ORTON [facility] [address] [place] [address] 10/10/2023 10:05:30 10/18/2023 09:02:23 Amputated below knee 699236074 Z89.519 right below knee amputation .remaining nehemias removed on 10/07/23- she has small superficia l open area moist and draining scant serous output. wound care for to cleanse with NS and apply aquacel cover with gauze.cont inue oxycodone 5 mg q 12 prn-contin ue PT/OT for conditioni ng and strengthen ing.contin ue wound care, the stump combustion engineer and the amputation shieldwoun d healing without s/sx of infection. Peripheral vascular disease 497361701 I73.9 continue asa, plavix and eliquiscon tinue oxycodone Q 6continue lyrica 150 mg qd and 200 mg at HS Essential hypertension 89624568 I10 BP has been underconti nue lisinopril 5 mg dailyconti nue metoprolol 50 mg bidfurosem oxana 40 mg dailymonit or BP /labs Anxiety 23201242 F41.9 continue ativan 0.5 mg q6 prnshe has agreed to try antidepres santshe was started on fluoxetine 20 mg daily on 09/18will monitor mood and behavior Carotid ar dahlia stenosis 16343135 I65.29 10/09:Histo ry of bilateral TCAR and [...] whether to reinterven e on the stent. [id number] Tere HerreraMariajose MARTINI JOSEY [address] [facility] [place] [address] 10/14/2023 09:41:31 10/18/2023 09:28:24 Amputated below knee 925359374 Z89.519 does not need wrap. healedappl y skin prep BID nsg updated.wo rking with PTpain controlled . Vascular dementia 066453 004 F01.54 chronis stablediff iculty to recall thoughts and respond to questions. mood stablecont inue supportive caremonito r for decline. [id number] ZENOBIA BRADLEY JOSEY [address] [facility] [place] [address] 10/20/2023 09:58:42 10/22/2023 09:32:05 Amputated below knee 419377857 Z89.519 right below knee amputation .remaining nehemias removed on 10/07/23- continues to heal well.stop oxycodone 5 mg q 12 prn due to minimal usecontinu e PT/OT for conditioni ng and strengthen ing.contin ue wound care, the stump combustion engineer and the amputation shieldwoun d healing without s/sx of infection. Peripheral vascular disease 649663098 I73.9 continue asa, plavix and eliquiscon tinue lyrica 150 mg qd and 200 mg at HS for pain mgmt Essential hypertension 15386771 I10 VSS, BP soft on occasionco ntinue lisinopril 5 mg dailyconti nue metoprolol 50 mg bidfurosem oxana 40 mg dailymonit or BP /labs Anxiety 10534537 F41.9 continue ativan 0.5 mg q6 prn - occasional use, discussed with nsg. will renew for another 14 days.Dulox etine 20 mg daily recently started, orly. well so far, nsg. feels it has been helping mood and behaviors. Continue to monitorPsy ch following as well. Carotid ar dahlia stenosis 69385848 I65.29 History of bilateral TCAR and left [...] ultrasound , plavix, and follow up appt. [id number] MIRI NORTON [address] [place] [address] 10/25/2023 10:59:01 10/26/2023 15:44:22 Amputated below knee 964697291 Z89.519 right below knee amputation , continues to heal well.now open to air ,wound healing without s/sx of infection. continue tylenol and lyrica Peripheral vascular disease 548831453 I73.9 continue asa, plavix and eliquiscon tinue lyrica 150 mg qd and 200 mg at HS for pain mgmtwill discuss need to continue plavix at vascular appt 10/28/23 Essential hypertension 12476141 I10 continue lisinopril 5 mg dailyconti nue metoprolol 50 mg bidfurosem oxana 40 mg dailymonit or BP /labs Anxiety 40020932 F41.9 continue ativan 0.5 mg q6 prn - occasional use, discussed with nsg. will renew for another 14 days.Dulox etine 20 mg daily recently started, orly. well so far, nsg. feels it has been helping mood and behaviors. - seen by adjunct psychology instructor on 10/23 reports feeling some improvemen t with duloxetine , recommende d to continueCo ntinue to monitorPsy ch following as well. Carotid ar dahlia stenosis 56061556 I65.29 History of bilateral TCAR and left [...] will be discussed at that appointmen t. [id number] MIRI NORTON [address] [place] [address] 10/26/2023 12:11:32 10/31/2023 16:07:08 COVID-19 677726431 U07.1 see hpiwill started paxlovid, isolation precaution supportati ve treatment: with mucinex 600 mg BID for 5 dayspaxlov id as orderedprn neb tx for sob. [id number] MIRI NORTON [address] [place] [address] 10/31/2023 16:29:45 11/01/2023 13:09:54 COVID-19 963490639 U07.1 she has been stable no reportable sx notedwill received last dose of paxlovid tonightiso lation precaution continue supportati ve treatment: prn neb tx for sob. Amputated below knee 299 891362 Z89.519 right below knee amputation , continues to heal well.now open to air ,wound healing without s/sx of infection. continue tylenol and lyrica Peripheral vascular disease 409933157 I73.9 continue asa, plavix and eliquiscon tinue lyrica 150 mg qd and 200 mg at HS for pain mgmtwill discuss need to continue plavix at vascular appt 10/28/23 Essential hypertension 50303608 I10 continue lisinopril 5 mg dailyconti nue metoprolol 50 mg bidfurosem oxana 40 mg dailymonit or BP /labs Anxiety 93628505 F41.9 continue ativan 0.5 mg q6 prn -continue Duloxetine 20 mg dailymood has been good.Galindo nue to monitorPsy ch following as well. Carotid ar dahlia stenosis 84577117 I65.29 History of bilateral TCAR and left [...] will be discussed at that appointmen tCandis [id number] MIRI NORTON [address] [place] [address] rd [place]NANDEZ [address] 11/04/2023 09:52:30 11/08/2023 11:09:10 COVID-19 585153777 U07.1 completed anti-viral . Amputated below knee 299 681962 Z89.519 right below knee amputation , continues to heal well.now open to air ,wound healing without s/sx of infection. continue tylenol and lyrica Peripheral vascular disease 744345764 I73.9 continue asa, plavix and eliquis- on hold for now for melenacont inue lyrica 150 mg qd and 200 mg at HS for pain mgmt Essential hypertension 71906736 I10 continue lisinopril 5 mg dailyconti nue metoprolol 50 mg bidfurosem oxana 40 mg dailymonit or BP /labs Anxiety 74628308 F41.9 continue ativan 0.5 mg q6 prn -continue Duloxetine 20 mg dailyConti nue to monitorPsy ch following as well. Carotid ar dahlia stenosis 80576674 I65.29 History of bilateral TCAR and left [...] be discussed at that appointmen tCandis Chamberlain 5833336 K92.1 11/02: nursing report black tarry stool, [...] hematemesi s, weakness, dizziness and or pallor. [id number] MIRI NORTON [address] [place] [address] [place]DE[place] [address] 11/07/2023 08:49:06 11/09/2023 10:55:24 Melena 3162883 K92.1 11/06: continue to have black tarry [...] s, weakness, dizziness and or pallor. Anemia 315302689 D64.9 H/H trending down today noted at 09/12-signi ficant drop in 7 days tested 3 times. continue ferrous sulfate 325 mg dailycont. Vit D 1000u daily [id number] ZENOBIA Ulloa [address] [place] [address] [place] [address] 11/12/2023 07:51:13 11/18/2023 09:17:41 Anemia 947244504 D64.9 per [facility] [place] summary: Held Eliquis, aspirin [...] obtained with hemoglobin 6 [place] [facility] [place] of [place] in stool or melena [...] bmp weekly on mondays x 3 Esophagitis 60178514 K20 .90 no melena noted in hospital, [...] bmp weekly on mondays x 3 Anxiety 17583899 F41.9 while in hopsital her ativan 0.5 mg q6 prn was discontinu edcontinue Duloxetine 20 mg dailyConti nue to monitorPsy ch following as well. Hypothyroidism 47289705 E03.9 adjusted in hospitalco nt levothyrox ine 200 mcg po dailyreche ck tsh in 8 weeksmonit or Essential hypertension 45466352 I10 bp initially soft in hospital, lisinopril was held, now resolved and resumedcon tlisinopri l 5 mg po dailymetop rolol 50 mg po q 12 hoursmonit or Amputated below knee 299 779657 Z89.519 right below knee amputation , continues to heal well.galindo nue tylenol and lyricafu with vascular as planned Peripheral vascular disease 396896615 I73.9 eliquis on holdcontin ueasa, plavixlyri ca 150 mg qdmonitor Pressure i njury of coccygeal region of back stage II 7893820785 1252505 L89.152 healing denuded skin to right coccyx11/11 apply barrier cream topically bid and prnfrequen t brief changes and reposition ingmonitor for infection Vascular dementia 771185 004 F01.54 stablediff iculty to recall thoughts and respond to questions at baseline per staffmood stablecont inue supportive caremonito r for decline. [id number] MIRI NORTON [address] [place] [address] [place] [address] 11/14/2023 09:54:52 11/18/2023 10:04:39 Esophagitis 95963865 K20.90 no melena noted in hospital, but [...] bmp weekly on mondays x 3 Anemia 203541240 D64.9 per [facility] summary: Held Eliquis, aspirin [...] obtained with hemoglobin 6 [place] [facility] [place] of blood in stool or melena [...] bmp weekly on mondays x 3 Anxiety 72958259 F41.9 while in hopsital her ativan 0.5 mg q6 prn was discontinu edcontinue Duloxetine 20 mg dailyConti nue to monitorPsy ch following as well. Hypothyroidism 30566787 E03.9 adjusted in hospitalco nt levothyrox ine 200 mcg po dailyreche ck tsh in 8 weeksmonit or Essential hypertension 16225029 I10 bp initially soft in hospital, lisinopril was held, now resolved and resumedcon tlisinopri l 5 mg po dailymetop rolol 50 mg po q 12 hoursmonit or Amputated below knee 299 064880 Z89.519 right below knee amputation , continues to heal well.galindo nue tylenol and lyricafu with vascular as planned Peripheral vascular disease 007409549 I73.9 eliquis on holdcontin ueasa, plavixlyri ca 150 mg qdmonitor Pressure i njury of coccygeal region of back stage II 5427947435 6589278 L89.152 healing denuded skin to right coccyx11/11 apply barrier cream topically bid and prnfrequen t brief changes and reposition ingmonitor for infection Vascular dementia 595678 004 F01.54 stablediff iculty to recall thoughts and respond to questions at baseline per staffmood stablecont inue supportive caremonito r for decline. [id number] MIRI NORTON [address] [address] 11/17/2023 14:04:30 11/23/2023 09:14:45 Anxiety 22311665 F41.9 stableDulo xetine 20 mg dailyConti nue to monitorPsy ch following as well. Hypothyroidism 55198189 E03.9 adjusted in hospitalco nt levothyrox ine 200 mcg po dailyreche ck tsh in 8 weeksmonit or Essential hypertension 77670200 I10 stable-lis inopril 5 mg po dailymetop rolol 50 mg po q 12 hoursmonit or Amputated below knee 299 507152 Z89.519 right below knee amputation , continues to heal well.galindo nue tylenol and lyricafu with vascular as planned Peripheral vascular disease 266031467 I73.9 eliquis stoppedcon tinue:asa, plavixlyri ca 150 mg qdmonitor Vascular dementia 310758 [address] declinebas sahara difficulty with word findingmoo d stablecont inue supportive caremonito r for decline. Anemia 820054532 D64.9 continuefe rrous sulfate 325 mg dailycont. Vit D 1000u dailymonit or cbc and bmp weekly on mondays x 3 [id number] MIRI NORTON [address] [address] 11/21/2023 11:10:23 11/23/2023 10:20:09 Anxiety 70835496 F41.9 stableDulo xetine 20 mg dailyConti nue to monitorPsy ch following as well. Hypothyroidism 94342471 E03.9 adjusted in hospitalco nt levothyrox ine 200 mcg po dailyreche ck tsh in 8 weeksmonit or Essential hypertension 70311925 I10 stable-lis inopril 5 mg po dailymetop rolol 50 mg po q 12 hoursmonit or Amputated below knee 299 123456 Z89.519 right below knee amputation , continues to heal well.galindo nue tylenol and lyricafu with vascular as planned Peripheral vascular disease 356108145 I73.9 eliquis stoppedcon tinue:asa, plavixlyri ca 150 mg qdmonitor Vascular dementia 232800 [address] declinebas sahara difficulty with word findingmoo d stablecont inue supportive caremonito r for decline. Anemia 964655955 D64.9 continuefe rrous sulfate 325 mg dailycont. Vit D 1000u dailymonit or cbc and bmp weekly on mondays x 3 [id number] MIRI NORTON [address] [address] 11/29/2023 10:14:07 12/01/2023 14:32:41 Anxiety 21438218 F41.9 stablecont inue duloxetine 20 mg daily- she is having a positive response with med.Contin ue to monitorupd ate HDBH with concerns. Hypothyroidism 11855283 E03.9 adjusted in hospitalco nt levothyrox ine 200 mcg po dailyreche ck tsh in 8 weeks- ord for . 11/18monito r Essential hypertension 04751238 I10 continue lisinopril 5 mg po dailyconti nue metoprolol 50 mg po q 12 hoursmonit or Amputated below knee 299 385219 Z89.519 right below knee amputation , continues to heal well.galindo nue tylenol and lyricafu with vascular as planned Peripheral vascular disease 290998257 I73.9 eliquis stoppedcon tinue:asa, plavixlyri ca 150 mg qdmonitor Vascular dementia 116282 004 F01.54 expect declinebas sahara difficulty with word findingmoo d stablecont inue supportive caremonito r for decline. Anemia 697493145 D64.9 continuefe rrous sulfate 325 mg dailycont. Vit D 1000u dailymonit or cbc and bmp weekly on mondays x 39/3: H/H has been stable increasing every week. [id number] MIRI NORTON [address] [address] 12/01/2023 11:44:42 12/05/2023 13:22:49 Amputated below knee 810609943 Z89.519 right below knee amputation open wound noted on stump concerning for infection, yellowish drainage noted on dressing ,will send culture.co ntinue tylenol and lyricafu with vascular as planned Peripheral vascular disease 383176325 I73.9 eliquis stoppedcon tinue:asa, plavixlyri ca 150 mg qdmonitor Vascular dementia 932363 004 F01.54 expect declinebas sahara difficulty with word findingmoo d stablecont inue supportive caremonito r for decline. [id number] MIRI NORTON [address] [address] 12/05/2023 09:49:14 12/07/2023 10:15:18 Amputated below knee 780057983 Z89.519 right below knee amputation wound culture pendingcon tinue tylenol and lyricafu with vascular as planned Peripheral vascular disease [id number] I73.9 eliquis stoppedcon tinue:asa, plavixlyri ca 150 mg qdmonitor Vascular dementia 853108 004 F01.54 expect declinebas sahara difficulty with word findingmoo d stablecont inue supportive caremonito r for decline. [id number] MIRI NORTON [address] [address] 12/12/2023 08:48:56 12/14/2023 08:51:51 Amputated below knee [id number] Z89.519 right below knee amputation continue tylenol and lyricafu with vascular as planned on 12/16/23 Peripheral vascular disease [id number] I73.9 eliquis stoppedcon tinue:asa, plavixlyri ca 150 mg qdmonitor Vascular dementia 932975 004 F01.54 expect declinebas sahara difficulty with word findingmoo d stablecont inue supportive caremonito r for decline. Subconjunc tival hemorrhage of left eye [id number] 08234 H11.32 no pain or visual changesnur sing to update provider for changes in vision, pain or discharge. can apply warm compress for comfort if irritated. 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 Peripheral vascular disease [id number] I73.9 12/15 carotid duplex shows 70 to 99% stenosis in her right ICA, this is s/p TCAR and she has a patent stent. Her left side shows 1 to 49% stenosis in the ICA with a patent stent.repe at duplex in 6 months eliquis stoppedcon tinue:asa, plavixlyri ca 150 mg qdmonitor Vascular dementia 199321 004 F01.54 expect declinebas sahara difficulty with word findingmoo d stablecont inue supportive caremonito r for decline. Subconjunc tival hemorrhage of left eye [id number] 48455 H11.32 resolvingn o pain or visual changesnur sing to update provider for changes in vision, pain or discharge. can apply warm compress for comfort if irritated. monitor for worsening sx, pt is on asa and plavix daily.H/H stable , will continue to monitor Insomnia 158155348 G47.0 0 see HPIstop melatonins tart trazodone 50 mg at HSmonitor for effectiven ess [id number] MIRI NORTON VINI JOSEY [address] [facility] [place] [address] 12/22/2023 11:08:23 12/23/2023 12:52:01 Amputated below knee 012616119 Z89.519 right below knee amputation continue tylenol [...] and promote wound healing. Peripheral vascular disease 327241296 I73.9 12/15 carotid duplex shows 70 to [...] plavixlyri ca 150 mg qdmonitor Vascular dementia 785136 004 F01.54 expect declinebas sahara difficulty with word findingmoo d stablecont inue supportive caremonito r for decline. Subconjunc tival hemorrhage of left eye [id number] 38221 H11.32 resolvingn o pain or visual changesnur sing to update provider for changes in vision, pain or discharge. can apply warm compress for comfort if irritated. monitor for worsening sx, pt is on asa and plavix daily.H/H stable , will continue to monitor Insomnia 386694281 G47.0 0 continue trazodone 50 mg at HS- will reassess at next visit.prakash cat for effectiven essdiscuss ed with patient avoiding caffeine drinks before bed, antidepres nuria and BP meds can causes insomnia. we discussed trying relaxation techniques such as deep breathing and guided imagery. [id number] MIRI NORTON [address] [place] [address] 12/27/2023 14:42:28 12/28/2023 11:41:01 Amputated below knee 063783013 Z89.519 right below knee amputation continue tylenol [...] and promote wound healing. Peripheral vascular disease 974662768 I73.9 12/15 carotid duplex shows 70 to [...] plavixlyri ca 150 mg qdmonitor Vascular dementia 426349 004 F01.54 expect declinebas sahara difficulty with word findingmoo d stablecont inue supportive caremonito r for decline. Subconjunc tival hemorrhage of left eye [id number] 21037 H11.32 resolvingn o pain or visual changesnur sing to update provider for changes in vision, pain or discharge. can apply warm compress for comfort if irritated. monitor for worsening sx, pt is on asa and plavix daily.H/H stable , will continue to monitor Insomnia 041776572 G47.0 0 continue trazodone 50 mg at HS- will reassess at next visit.prakash cat for effectiven essdiscuss ed with patient avoiding caffeine drinks before bed, antidepres nuria and BP meds can causes insomnia. we discussed trying relaxation techniques such as deep breathing and guided imagery. [id number] MIRI NORTON [address] [place] [address] 01/02/2024 08:33:03 01/03/2024 11:47:07 Amputated below knee 993162462 Z89.519 followed closely by vascular.r ight below [...] and promote wound healing. Peripheral vascular disease 171273161 I73.9 12/15 carotid duplex shows 70 to [...] plavixlyri ca 150 mg qdmonitor Vascular dementia 961920 [address] declinebas sahara difficulty with word findingmoo d stablecont inue supportive caremonito r for decline. Subconjunc tival hemorrhage of left eye [id number] 19982 H11.32 resolvingn o pain or visual changesnur sing to update provider for changes in vision, pain or discharge. can apply warm compress for comfort if irritated. monitor for worsening sx, pt is on asa and plavix daily.H/H stable , will continue to monitor Insomnia 242887893 G47.0 0 continue trazodone 50 mg at [...] Member ID Guarantor Name 12/28/2023 2 [place] [facility] Marixa Chan [id number] Marixa Chan 12/27/2023 1 [place] [employer] Marixa Chan [id number] Marixa Chan Notes Date Note Type Note [...] MIRI NORTON [address] [facility], [facility] [address], [place], [address], [employer] 12/12/2023 14:39:04 12/19/2023 text/html ROS as noted [...] [address] [facility], [address], [place], [address], [employer] 12/20/2023 15:35:55 12/22/2023 text/html ROS as noted [...] have a stump strinker. MIRI NORTON [address] [facility] [address], [place], [address], [facility] [employer] 12/22/2023 16:22:53 12/27/2023 text/html ROS as noted [...] not have a stump strinker. MIRI NORTON [address] [place] [address] [address], [place], [address], [facility] [employer] 12/27/2023 15:20:31 01/02/2024 text/html ROS as noted [...] MIRI NORTON [address] [facility], [facility] [address], [place], [address], [facility] [employer] 01/02/2024 13:22:00 OBGyn Episode No OBEpisode recorded.
--- OUTSIDE RECORDS SUMMARY | 2025-01-21 05:18 | XMS_ITS | Encounter Summary ---
Author Organization [facility] Address [address] [place] [address] Phone Care Team Providers Care School Janitor Name Role Phone Agueda Ann MD Primary Care Provider [phone] Andie Rossi MD Unavailable West Doll MD Unavailable Britany Coles MD Unavailable [phone] Naun Hoang MD Unavailable + Agueda Ann MD Unavailable Latosha Garcia OT Unavailable Latosha Garcia OT Unavailable [phone] Mely Bhatti RN Unavailable [email or web address] Encounter Details Date Type Department Care Team (Late st Contact Info) Description 07/31/2021 Procedure Pass [facility] Endoscopy Admitting Dept Virtual Department [address] [place] [address] Social History Tobacco Use Types Packs/Day Years [...] high school, GED, job training, learning the [place] language, technical skills, or developing parenting skills)? [...] documented as of this encounter Care Teams School Janitor Relationship Specialty Start Date End Date Agueda Ann MD [address] [place] [address] PCP - General Family Medicine 02/01/19 Andie Rossi MD [address] [place] [address] Neurology 03/02/19 West Doll MD [address] [place] [address] Cardiology 03/02/19 Britany Coles MD [address] [facility] 140 [place] [address] [email or web address] 03/02/19 Naun Hoang MD 3300 [facility] [address] [place] [address] Infectious Diseases 03/02/19 Agueda Ann MD [address] [address] [email or web address] Insurance Assigned Provider 07/02/23 04/02/24 Latosha Garcia, OT [address] [place] [address] [email or web address] Transitions Cook Fish And ChipsService Promoter Salesperson Therapy 11/05/22 11/07/22 Latosha Garcia, OT [address] [place] [address] [email or web address] Transitions Cook Fish And ChipsService Promoter Salesperson Therapy 11/24/22 11/25/22 Mely Bhatti RN 30 [place] [address] [email or web address] [employer] 05/12/23 06/09/23 documented as of this encounter Additional Source Comments The information contained in this document represents components of the legal health record. It is not the complete legal health record.[facility]
--- OUTSIDE RECORDS SUMMARY | 2025-01-21 05:18 | XMS_ITS | Encounter Summary ---
Author Organization [employer] Address [address] [facility] 7t [place] [address] Care Team Providers Care Project Manager Industrial Name Role Phone Unavailable Primary Care Provider Unavailabl e Encounter Details Date Type Department Care Team (Latest Contact Info) Description 06/29/2021 Abstract [facility] CONVERSIONS Dental, Provider, DDS Social [...]
--- OUTSIDE RECORDS SUMMARY | 2025-01-21 05:18 | XMS_ITS | Clinical Summary ---
Author Organization [facility] it Address [address] [place] [address] Care Team Providers Care Head Girls Golf Coach Name Role Phone Unavailable Primary Care Provider Unavailabl e Immunizations Immunization Administration Dates Next Due Pfizer SARS-CoV-2 COVID-19, mRNA, LNP-S, preservative free 07/02/2020,06/07/2020 Surgical History Surgery Date Site/Laterality Comments NECK SURGERY PROCEDURE: HISTORICAL NECK SURGERY; COMMENT: spinal stenosis TONSILLECTOMY PROCEDURE: HISTORICAL TONSILLECTOMY CHOLECYSTECTOMY 09/1989 PROCEDURE: HISTORICAL CHOLECYSTECTOMY BREAST REDUCTION PROCEDURE: MT BREAST REDUCTION ROBOTIC ASSISTED HYSTERECTOMY 03/05/14 PROCEDURE: [...]
--- OUTSIDE RECORDS SUMMARY | 2025-01-21 05:18 | XMS_ITS | Encounter Summary ---
Author Organization [email or web address] Address [address] [facility] 7t [place] [address] Care Team Providers Care Solution Manager Name Role Phone Unavailable Primary Care Provider Unavailabl e Encounter Details Date Type Department Care Team (Latest Contact Info) Description 07/09/2020 Abstract [facility] CONVERSIONS Dental, Provider, DDS Social [...]
--- OUTSIDE RECORDS SUMMARY | 2025-01-21 05:18 | XMS_ITS | Clinical Summary ---
Author Organization [facility] Address [address] [place] [address] Phone Care Team Providers Care Medical Office Rep Name Role Phone Agueda Ann MD Primary Care Provider [phone] Andie Rossi MD Unavailable West Doll MD Unavailable [phone] Britany Coles MD Unavailable [phone] Naun Hoang MD Unavailable + Allergies No [...] mouth daily. 4 Active neomycin/bacitra negrito/polymyxinB (NEOSPORIN, [id number], TP) Apply 1 Application topically 2 (two) [...] 20 MG tabletIndication s:Coronary artery disease involving [place] heart without angina pectoris, unspecified vessel or [...] an echo, and follow-up with her own fruit dumper who is at [facility]. Acquired hypothyroidism 09/04/2020 Assessment & Plan (12/26/2022 [...] like to little and she is established [facility] weight management so I like her to see the wheat inspector there she understands and agrees this plan Assessment & Plan (05/17/2019 12:35 PM EST): She is working out, tracking her caloric intake and sticking to nutrition plan although she is under eating. No clear etiology for her weight gain. Start taking levothyroxine separately from the other medications. Check labs today. Make follow-up with wheat inspector CAD (coronary artery disease) 03/02/2019 Overview (03/02/2019): h/o stent Assessment & Plan (12/26/2022 3:02 PM EDT): No active cp or acute concern -Continue cardiac cath technician -Continue aspirin, atorvastatin, Plavix, and Zetia Is [...] and chronic pain. Certainly would benefit from SUPERVISOR THROWING DEPARTMENT services and I have discussed with pt [...] pt can establish with someone new at [facility]. Assessment & Plan (01/21/2021 12:34 PM [...] and gait. She will be going to [facility] physical medicine and rehabilitation in [place] for this. IgG monoclonal gammopathy Assessment & Plan (03/02/2019 12:15 PM EST): Patient denies ever seeing hematology, has never heard this diagnosis and does not think that she has this. As I do not have records it is difficult for me to understand where this came from. I would like to review her [facility] records and if necessary we will [...] appt for Neuro muscular in Dec at [facility]). No further pain. F/u as needed Assessment [...] this topic Medical Devices Implanted Type Area Ready To Wear Department Manager Device Identifier Shelf Expiration Date Model / Serial / Lot Stent Supera 6fr 5.5mm 120mm 120cm .014in Otw Vascular Peripheral Nitinol Self Expanding Closed End Braided - [id number] Implanted:Qty: 1 on 11/18/2022 by David Mendez MD at [facility] Stent [employer] 04/27/2024 [id number] / / [id number] Cardiac Stent Neck Hardware Procedures Procedure Name [...] EST) SODIUM 137 133 - 146 mmol/L [facility] CHLORIDE 101 96 - 108 mmol/L [facility] POTASSIUM 4.1 3.3 - 5.1 mmol/L [facility] CO2 24 21 - 35 mmol/L [facility] BUN 27(H) 6 - 19 mg/dL [facility] CREATININE 0.50 0.5 - 1.5 mg/dL [facility] GLUCOSE 103(H) 70 - 99 mg/dL [facility] CALCIUM 9.0 8.4 - 10.3 mg/dL [facility] EGFR 103 >59 mL/min/1.7 3m2 [facility] Comment:Estimated glomerular filtration rate calculated using the CKD-EPI refit equation. ANION GAP 16 10 - 20 mmol/L [facility] Blood 05/23/2023 4:12 PM EST 05/23/2023 4:32 PM EST Mely Padron PA-C LAB BLOOD ORDERABLES Final R esult [address] [address] * (ABNORMAL) TSH with reflex (01/13/2023 7:58 AM EDT) TSH 0.03(L) 0.27 - 4.20 uIU/mL [facility] Blood 01/13/2023 7:58 AM EDT 01/13/2023 8:03 AM EDT Agueda Ann MD LAB BLOOD ORDERABLES Final Resul t Performing Organization Address City/[facility]/ZIP Co de Phone Number [address] [address] * (ABNORMAL) Lipid panel (12/25/2022 5:22 AM EDT) HDL 46 mg/dL [facility] Comment: Interpretation <40 mg/dL: Low HDL cholesterol (major risk factor for CHD) Greater than or equal to 60 mg/dL: High HDL cholesterol ( negative risk factor for CHD) HDL - cholesterol is affected by a number of factors, e.g. smoking, excerise, hormones, sex and age. CHOLESTEROL 98 0 - 240 mg/dL [facility] TRIGLYCERIDES 86 30 - 160 mg/dL [facility] LDL 35(L) 50 - 129 mg/dL [facility] Comment: LDL levels in terms of risk for coronary heart disease: <100 mg/dL: Optimal 100-129 mg/dL: Near or above optimal 130-159 mg/dL: Borderline high 160-189 mg/dL: High >190 mg/dL: Very High CARDIAC RISK RATIO 2.1(L) 3.3 - 4.4 C [facility] Blood 12/25/2022 5:22 AM EDT 12/25/2022 6:22 AM EDT us Kayley Ribera NP LAB BLOOD ORDERABLES Fi nal Result [address] [address] * MAMMOGRAPHY FOR RESULT ENTRY ONLY (07/07/2022) us Agueda Ann MD HEALTH MAINTENANCE Edited Result - Final from Last 3 Months or Most Recently Relevant to Health Maintenance Insurance [place]IC[place] PART [place] [facility] & B [place] [facility] [place] & [place] & B [facility] MEDICARE PART A & [place] & B [facility] Advance Directives For more information, please contact: [phone] (9AM - 5PM [facility], Tuesday-Tuesday) Documents on File Type Date Recorded Patient Package Sealer Machine Expl anation Healthcare Proxy 11/08/2022 6:36 PM [...] Code Status Confirmed With: Patient Care Teams Medical Office Rep Relationship Specialty Start Date End Date Agueda Ann MD [address] [place] [address] PCP - General Family Medicine 02/01/19 Andie Rossi MD [address] [place] [address] Neurology 03/02/19 West Doll MD [address] [place] [address] 104 [place] [address] Cardiology 03/02/19 Britany Coles MD [address] [place] [address] 140 [place] [address] [email or web address] 03/02/19 Naun Hoang MD [address] [address] Infectious Diseases 03/02/19 Additional Source Comments The information contained in this document represents components of the legal health record. It is not the complete legal health record.[facility]
--- OUTSIDE RECORDS SUMMARY | 2025-01-21 05:18 | XMS_ITS | Encounter Summary ---
Author Organization [employer] Address [address] [facility] 7t [place] [address] Care Team Providers Care Hospitality Recruiter Name Role Phone Unavailable Primary Care Provider Unavailabl e Encounter Details Date Type Department Care Team (Latest Contact Info) Description 05/02/2018 Abstract [facility] CONVERSIONS Dental, Provider, DDS Social History [...]
--- OUTSIDE RECORDS SUMMARY | 2025-01-21 05:19 | XMS_ITS | Encounter Summary ---
Author Organization [facility] Address [address] [place] [address] Phone Care Team Providers Care Machine Loader Name Role Phone Agueda Ann MD Primary Care Provider [phone] Andie Rossi MD Unavailable [phone] West Doll MD Unavailable [phone] Britany Coles MD Unavailable [phone] Naun Hoang MD Unavailable + Agueda Ann MD Unavailable Mely Bhatti RN Unavailable [email or web address] Encounter Details Date Type Department Care Team (Late st Contact Info) Description 12/24/2022 Procedure Pass [facility], [facility] 30 [place] [address] Social History Tobacco Use Types Packs/Day Years [...] 12/24/2022 9:29 AM Natalya Menon, NICOLE * [place] Suicide Severity Rating Scale (Screener/Recent Self-Report) Question [...] as of this encounter Care Teams Machine Loader Relationship Specialty Start Date End Date Agueda Ann MD [address] [address] [email or web address] PCP - General Family Medicine 02/01/19 Andie Rossi MD [address] [place] [address] Neurology 03/02/19 West Doll MD [address] [place] [address] 104 [place] [address] Cardiology 03/02/19 Britany Coles MD [address] [place] [address] 140 [place] [phone] [email or web address] 03/02/19 Naun Hoang MD [address] [place] [address] Infectious Diseases 03/02/19 Agueda Ann MD [address] [address] [email or web address] Insurance Assigned Provider 4/6/24 1/6/25 Mely Bhatti, RN [address] [place] [address] [email or web address] Supervisor 05/12/23 06/09/23 documented as of this encounter Additional Source Comments The information contained in this document represents components of the legal health record. It is not the complete legal health record.[facility]
--- OUTSIDE RECORDS SUMMARY | 2025-01-21 05:19 | XMS_ITS | Encounter Summary ---
Author Organization [facility] Address [address] [place] [address] Phone Care Team Providers Care Cargo And Container Inspector Name Role Phone Agueda Ann MD Primary Care Provider [phone] Andie Rossi MD Unavailable [phone] West Doll MD Unavailable [phone] Britany Coles MD Unavailable [phone] Naun Hoang MD Unavailable + Agueda Ann MD Unavailable Mely Bhatti RN Unavailable [email or web address] Encounter Details Date Type Department Care Team (Late st Contact Info) Description 12/24/2022 Procedure Pass [facility], [facility] [address] [place] [address] Social History Tobacco Use Types Packs/Day Years [...] high school, GED, job training, learning the [place] language, technical skills, or developing parenting skills)? [...] Risk Indicated 12/24/2022 9:29 AM Natalya Menon, NICLOE * [place] Suicide Severity Rating Scale (Screener/Recent Self-Report) Question [...] documented as of this encounter Care Teams Cargo And Container Inspector Relationship Specialty Start Date End Date Agueda Ann MD [address] [address] [email or web address] PCP - General Family Medicine 02/01/19 Andie Rossi MD [address] [place] [address] Neurology 03/02/19 West Doll MD [address] [place] [address] 104 [place] [address] Cardiology 03/02/19 Britany Coles MD [address] [place] [address] 140 [place] [phone] [email or web address] 03/02/19 Naun Hoang MD [address] [place] [address] Infectious Diseases 03/02/19 Agueda Ann MD [address] [address] [email or web address] Insurance Assigned Provider 4/6/24 1/6/25 Mely Bhatti, RN [address] [place] [address] [email or web address] Machine [email or web address] 05/12/23 06/09/23 documented as of this encounter Additional Source Comments The information contained in this document represents components of the legal health record. It is not the complete legal health record.[facility]
--- OUTSIDE RECORDS SUMMARY | 2025-01-21 05:19 | XMS_ITS | Encounter Summary ---
Author Organization [facility] Address [address] [place] [address] Phone Care Team Providers Care Position Classifier Name Role Phone Agueda Ann MD Primary Care Provider [phone] Andie Rossi MD Unavailable West Doll MD Unavailable Britany Coles MD Unavailable Naun Hoang MD Unavailable + Agueda Ann MD Unavailable Mely Bhatti RN Unavailable [email or web address] Encounter Details Date Type Department Care Team (Late st Contact Info) Description 12/24/2022 Procedure Pass [facility] 30 [place] [address] Social History Tobacco Use Types Packs/Day Years [...] 12/24/2022 9:29 AM Natalya Menon, NICOLE * [place] Suicide Severity Rating Scale (Screener/Recent Self-Report) Question [...] documented as of this encounter Care Teams Position Classifier Relationship Specialty Start Date End Date Agueda Ann MD [address] [address] [email or web address] PCP - General Family Medicine 02/01/19 Andie Rossi MD [address] [place] [address] Neurology 03/02/19 West Doll MD [address] [place] [address] 104 [place] [address] Cardiology 03/02/19 Britany Coles MD [address] [place] [address] 140 [place] [phone] [email or web address] Orthopedic Surgery 03/02/19 Naun Hoang MD [address] [place] [address] Infectious Diseases 03/02/19 Agueda Ann MD [address] [address] [email or web address] Insurance Assigned Provider 4/6/24 1/6/25 Mely Bhatti, RN [address] [place] [address] [email or web address] 05/12/23 06/09/23 documented as of this encounter Additional Source Comments The information contained in this document represents components of the legal health record. It is not the complete legal health record.[facility]
--- OUTSIDE RECORDS SUMMARY | 2025-01-21 05:19 | XMS_ITS | Encounter Summary ---
Author Organization [facility] Address [address] [place] [address] Phone Care Team Providers Care Hand Blocker Name Role Phone Agueda Ann MD Primary Care Provider [phone] Andie Rossi MD Unavailable [phone] West Doll MD Unavailable [phone] Britany Coles MD Unavailable Naun Hoang MD Unavailable + Agueda Ann MD Unavailable Mely Bhatti RN Unavailable [email or web address] Encounter Details Date Type Department Care Team (Late st Contact Info) Description 12/25/2022 Procedure Pass Non-Invasive Cardiology 30 [place] [address] Social History Tobacco Use Types Packs/Day Years [...] high school, GED, job training, learning the Peruvian language, technical skills, or developing parenting skills)? [...] as of this encounter Care Teams Hand Blocker Relationship Specialty Start Date End Date Agueda Ann MD [address] [place] [address] [email or web address] PCP - General Family Medicine 02/01/19 Andie Rossi MD 48 [place] [address] Neurology 03/02/19 West Doll MD [address] [place] [address] 104 [place] [address] Cardiology 03/02/19 Britany Coles MD [address] [place] [address] 140 [place] [phone] [email or web address] Orthopedic Surgery 03/02/19 [place] [address] [place] [address] Infectious Diseases 03/02/19 Agueda Ann MD [address] [address] [email or web address] Insurance Assigned Provider 07/02/23 04/02/24 Mely Bhatti RN [address] [address] [email or web address] PHCM Physician Office Assistant 05/12/23 06/09/23 documented as of this encounter Additional Source Comments The information contained in this document represents components of the legal health record. It is not the complete legal health record.[facility]
--- OUTSIDE RECORDS SUMMARY | 2025-01-21 05:19 | XMS_ITS | Encounter Summary ---
Author Organization [facility] Address [address] [place] [address] Phone Care Team Providers Care Continuous Linter Drier Operator Name Role Phone Agueda Ann MD Primary Care Provider [phone] Andie Rossi MD Unavailable West Doll MD Unavailable Britany Coles MD Unavailable [phone] Naun Hoang MD Unavailable + Agueda Ann MD Unavailable Latosha Garcia OT Unavailable [phone] Latosha Garcia OT Unavailable [phone] Mely Bhatti RN Unavailable [email or web address] Encounter Details Date Type Department Care Team (Late st Contact Info) Description 10/04/2019 Ancillary Orders [facility],Outside Imaging 30 [place] [address] System, Provider Not In, PhD Partners [address] [address] Social History Tobacco Use Types Packs/Day Years [...] documented as of this encounter Care Teams Continuous Linter Drier Operator Relationship Specialty Start Date End Date Agueda Ann MD [address] [address] PCP - General Family Medicine 02/01/19 Andie Rossi MD 48 [place] [address] Neurology 03/02/19 West Doll MD [address] [place] [address] 104 [place] [address] Cardiology 03/02/19 Britany Coles MD [address] [place] [address] 140 [place] [phone] [email or web address] [email or web address] Surgery 03/02/19 [place] [address] [place] [address] Infectious Diseases 03/02/19 Agueda Ann MD [address] [address] [email or web address] Insurance Assigned Provider 07/02/23 04/02/24 Latosha Garcia, OT 30 [place] [address] [email or web address] Transitions Music Department ChairJava Xml Developer Therapy 11/05/22 11/07/22 Latosha Garcia, OT 30 [place] [address] [email or web address] Transitions Music Department ChairJava Xml Developer Therapy 11/24/22 11/25/22 Mely Bhatti, NICOLE 30 [place] [address] [email or web address] Music Department Chair 05/12/23 06/09/23 documented as of this encounter Additional Source Comments The information contained in this document represents components of the legal health record. It is not the complete legal health record.[facility]
--- OUTSIDE RECORDS SUMMARY | 2025-01-21 05:19 | XMS_ITS | Encounter Summary ---
Author Organization [facility] Address [address] [place] [address] Phone Care Team Providers Care Belt Builder Name Role Phone Agueda Ann MD Primary Care Provider [phone] Andie Rossi MD Unavailable West Doll MD Unavailable [phone] Britany Coles MD Unavailable [phone] Naun Hoang MD Unavailable + Agueda Ann MD Unavailable Mely Bhatti RN Unavailable [email or web address] Encounter Details Date Type Department Care Team (Late st Contact Info) Description 12/24/2022 Procedure Pass [facility], [facility] 30 [place] [address] Social History Tobacco Use Types Packs/Day Years [...] 12/24/2022 9:29 AM Natalya Menon, NICOLE * [place] Suicide Severity Rating Scale (Screener/Recent Self-Report) Question [...] documented as of this encounter Care Teams Belt Builder Relationship Specialty Start Date End Date Agueda Ann MD [address] [address] [email or web address] PCP - General Family Medicine 02/01/19 Andie Rossi MD [address] [place] [address] Neurology 03/02/19 West Doll MD [address] [place] [address] 104 [place] [address] Cardiology 03/02/19 Britany Coles MD [address] [place] [address] 140 [place] [phone] [email or web address] [email or web address] Surgery 03/02/19 Naun Hoang MD [address] [place] [address] Infectious Diseases 03/02/19 Agueda Ann MD [address] [address] [email or web address] Insurance Assigned Provider 4/6/24 1/6/25 Mely Bhatti, RN [address] [place] [address] [email or web address] 05/12/23 06/09/23 documented as of this encounter Additional Source Comments The information contained in this document represents components of the legal health record. It is not the complete legal health record.[facility]
--- OUTSIDE RECORDS SUMMARY | 2025-01-21 05:19 | XMS_ITS | Encounter Summary ---
Author Organization [facility] Address [address] [place] [address] Phone Care Team Providers Care Ironworker Apprentice Shop Name Role Phone Agueda Ann MD Primary Care Provider [phone] Andie Rossi MD Unavailable [phone] West Doll MD Unavailable [phone] Britany Coles MD Unavailable [phone] Naun Hoang MD Unavailable + Agueda Ann MD Unavailable Mely Bhatti RN Unavailable [email or web address] Encounter Details Date Type Department Care Team (Late st Contact Info) Description 12/25/2022 Procedure Pass [facility] [address] [place] [address] Social History Tobacco Use Types Packs/Day Years [...] high school, GED, job training, learning the Turkmen language, technical skills, or developing parenting skills)? [...] documented as of this encounter Care Teams Ironworker Apprentice Shop Relationship Specialty Start Date End Date Agueda Ann MD [address] [place] [address] [email or web address] PCP - General Family Medicine 02/01/19 Andie Rossi MD 48 [place] [address] Neurology 03/02/19 West Doll MD [address] [place] [address] 104 [place] [address] Cardiology 03/02/19 Britany Coles MD [address] [place] [address] 140 [place] [phone] [email or web address] Orthopedic Surgery 03/02/19 [place] [address] [place] [address] Infectious Diseases 03/02/19 Agueda Ann MD [address] [address] [email or web address] Insurance Assigned Provider 07/02/23 04/02/24 Mely Bhatti RN [address] [address] [email or web address] PHCM Electric Dolly Operator 05/12/23 06/09/23 documented as of this encounter Additional Source Comments The information contained in this document represents components of the legal health record. It is not the complete legal health record.[facility]
--- OUTSIDE RECORDS SUMMARY | 2025-01-21 05:19 | XMS_ITS | Encounter Summary ---
Author Organization [facility] Address [address] [place] [address] Phone Care Team Providers Care Logistic Manager Name Role Phone Agueda Ann MD Primary Care Provider [phone] Andie Rossi MD Unavailable West Doll MD Unavailable Britany Coles MD Unavailable Naun Hoang MD Unavailable + Agueda Ann MD Unavailable Mely Bhatti RN Unavailable [email or web address] Encounter Details Date Type Department Care Team (Late st Contact Info) Description 12/24/2022 Procedure Pass [facility], [facility] 30 [place] [address] Social History Tobacco Use Types Packs/Day Years [...] high school, GED, job training, learning the Austrian language, technical skills, or developing parenting skills)? [...] 9:29 AM ALEKT Natalya Delgadillo RN * [place] Suicide Severity Rating Scale (Screener/Recent Self-Report) Question [...] documented as of this encounter Care Teams Logistic Manager Relationship Specialty Start Date End Date Agueda Ann MD [address] [address] [email or web address] PCP - General Family Medicine 02/01/19 Andie Rossi MD [address] [place] [address] Neurology 03/02/19 West Doll MD [address] [place] [address] 104 [place] [address] Cardiology 03/02/19 Britany Coles MD [address] [place] [address] 140 [place] [phone] [email or web address] [email or web address] Surgery 03/02/19 Naun Hoang MD [address] [place] [address] Infectious Diseases 03/02/19 Agueda Ann MD [address] [address] [email or web address] Insurance Assigned Provider 07/02/23 04/02/24 Mely Bhatti, NICOLE [address] [address] [email or web address] 05/12/23 06/09/23 documented as of this encounter Additional Source Comments The information contained in this document represents components of the legal health record. It is not the complete legal health record.[facility]
--- OUTSIDE RECORDS SUMMARY | 2025-01-21 05:19 | XMS_ITS | Encounter Summary ---
Author Organization [facility] Address [address] [place] [address] Phone Care Team Providers Care Pathology Laboratory Aide Name Role Phone Agueda Ann MD Primary Care Provider [phone] Andie Rossi MD Unavailable West Doll MD Unavailable [phone] Britany Coles MD Unavailable Naun Hoang MD Unavailable + Agueda Ann MD Unavailable Mely Bhatti RN Unavailable [email or web address] Encounter Details Date Type Department Care Team (Late st Contact Info) Description 12/24/2022 Procedure Pass [facility], Ct Scan - [facility] 30 [place] [address] Social History Tobacco Use Types Packs/Day Years [...] high school, GED, job training, learning the Wallisian language, technical skills, or developing parenting skills)? [...] 9:29 AM ALEKT Natalya Delgadillo RN * [place] Suicide Severity Rating Scale (Screener/Recent Self-Report) Question [...] documented as of this encounter Care Teams Pathology Laboratory Aide Relationship Specialty Start Date End Date Agueda Ann MD [address] [address] [email or web address] PCP - General Family Medicine 02/01/19 Andie Rossi MD [address] [place] [address] Neurology 03/02/19 West Doll MD [address] [place] [address] 104 [place] [address] Cardiology 03/02/19 Britany Coles MD [address] [place] [address] 140 [place] [phone] [email or web address] [email or web address] Surgery 03/02/19 Naun Hoang MD [address] [place] [address] Infectious Diseases 03/02/19 Agueda Ann MD [address] [address] [email or web address] Insurance Assigned Provider 07/02/23 04/02/24 Mely Bhatti, NICOLE [address] [address] [email or web address] 05/12/23 06/09/23 documented as of this encounter Additional Source Comments The information contained in this document represents components of the legal health record. It is not the complete legal health record.[facility]
[2025-01-21 05:50] LABS: Hematocrit 28.9 % (37.0-47.0); Hemoglobin 8.6 g/dl (12.0-16.0); Imm Gran Abs Auto 0.03 X10*3/uL (0.00-0.03); Imm Gran Pct Auto 0.3 % (0.0-0.4); Lymphocytes Absolute Auto 2.9 X10*3/uL (1.2-4.9); Mean Corpuscular HGB Conc 29.8 g/dl (31.0-35.0); Mean Corpuscular Hemoglobin 25.9 pg (27.0-33.0); Mean Corpuscular Volume 87.0 fL (80.0-98.0); NRBC Abs Auto 0.000 X10*3/uL (0.0-0.012); NRBC Pct Auto 0.0 /100WBC (0.0-0.2); Platelet Count 380 X10*3/uL (160-400); Red Blood Count 3.32 X10*6/uL (4.20-5.50); White Blood Count 8.7 X10*3/uL (4.8-10.8)
[2025-01-21 06:05] LABS: Anion Gap 15 (12-20); Blood Urea Nitrogen 44 mg/dL (9-16); Calcium 8.7 mg/dL (8.4-10.2); Carbon Dioxide 23 mmol/L (22-29); Chloride 108 mmol/L (96-108); Estimated Glomerular Filt Rate 45; Potassium 4.6 mmol/L (3.3-5.1); Sodium 141 mmol/L (135-145)
== END 2025-01-21 05:17 | disposition home or self-care (01) ==
LOC: HO.MMNH3L 05:16
PROVIDERS: Visit Provider Student in an Organized Health Care Education/Training Program
DX: I69.398 Other sequelae of cerebral infarction (principal); I25.9 Chronic ischemic heart disease, unspecified; E03.9 Hypothyroidism, unspecified; Z89.611 Acquired absence of right leg above knee
CPT/HCPCS: 36415; 80048; 85025

== ENCOUNTER 2025-01-28 05:47 | Outpatient (REF) | payer MEDICARE, MEDICAID, SELFPAY ==
[2025-01-28 05:36] LABS: MANUAL DIFF FLAG NO
--- OUTSIDE RECORDS SUMMARY | 2025-01-28 05:56 | XMS_ITS | Encounter Summary ---
Author Organization [employer] Address [address] [facility] 7t [place] [address] Care Team Providers Care Fire Equipment Inspector Helper Name Role Phone Unavailable Primary Care Provider Unavailabl e Encounter Details Date Type Department Care Team (Latest Contact Info) Description 05/02/[address] [facility] CONVERSIONS Dental, Provider, DDS Social History [...]
--- OUTSIDE RECORDS SUMMARY | 2025-01-28 05:56 | XMS_ITS | Encounter Summary ---
Author Organization [facility] Address [address] [place] [address] Care Team Providers Care Personal Lines Appraiser Name Role Phone Ekta Petersen DO Primary Care Pro vider Unavailable [facility], [facility]cp Primary Care Provider Unavailabl e Reason for Referral * Specialist (Routine) - Authorized/Booked Specialty Diagnoses / Procedures Referred By Tristan liu Referred To Contact Neurology Procedures REFERRAL TO NEUROLOGY Ekta Petersen DO [address] [place] [address] Og Shen MD [address] [place] [address] Referral ID Status Reason Start Date Expiration Date V isits Requested Visits Authorized SEE NOTE Authorized/B ooked 12/11/2014 03/13/2015 1 1 Encounter Details Date Type Department Care Team Description 12/11/2014 Orders Only Adult Medicine [address] [address] Ekta Petersen DO Myasthenia gravis (Primary Dx) Social History Tobacco Use Types Packs/Day Years Used Date Smoking Tobacco: Never Smokeless Tobacco: Never Alcohol Use Standard Drinks/Week Comments Yes 0 (1 standard drink = 0.6 oz pur e alcohol) rare Sex Assigned at Date Recorded Not on file documented as of this encounter Plan of Treatment Not on file documented as of this encounter Visit Diagnoses Diagnosis Myasthenia gravis (HCC)- Primary Myasthenia gravis without exacerbation documented in this encounter Care Teams Personal Lines Appraiser Relationship Specialty Start Date End Date Ekta Petersen DO PCP - General Internal Medicine 10/16/13 05/11/18 [facility], Pcp PCP - General Internal Medicine 05/12/18 documented as of this encounter
--- OUTSIDE RECORDS SUMMARY | 2025-01-28 05:56 | XMS_ITS | Encounter Summary ---
Author Organization [facility] Address [address] [place] [address] Care Team Providers Care Ground Control Approach Technician Name Role Phone Ekta Petersen DO Primary Care Pro vider Unavailable [facility], Pcp Primary Care Provider Unavailabl e Encounter Details Date Type Department Care Team Description 05/18/2016 SCAN Medical Records [address] [place] [address] Abstract, Provider Social History Tobacco Use Types Packs/Day Years Used Date Smoking Tobacco: Former Smokeless Tobacco: Never Comments:on and off for coup le of years,quit years ago Alcohol Use Standard Drinks/Week Comments Yes 0 (1 standard drink = 0.6 oz pur e alcohol) rare Sex Assigned at Date Recorded Not on file documented as of this encounter Plan of Treatment Not on file documented as of this encounter Visit Diagnoses Not on filedocumented in this encounter Care Teams Ground Control Approach Technician Relationship Specialty Start Date End Date Ekta Petersen DO PCP - General Internal Medicine 10/16/13 05/11/18 [facility], Pcp PCP - General Internal Medicine 05/12/18 documented as of this encounter
--- OUTSIDE RECORDS SUMMARY | 2025-01-28 05:56 | XMS_ITS | Encounter Summary ---
Author Organization [employer] Address [address] [facility] 7t [place] [address] Care Team Providers Care Steel Die Printer Name Role Phone Unavailable Primary Care Provider Unavailabl e Encounter Details Date Type Department Care Team (Latest Contact Info) Description 07/09/2020 Abstract [facility] CONVERSIONS Dental, Provider, DDS Social History [...]
--- OUTSIDE RECORDS SUMMARY | 2025-01-28 05:56 | XMS_ITS | Encounter Summary ---
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) Social History Tobacco Use Types Packs/Day Years Used Date Smoking Tobacco: Former Smokeless Tobacco: Never Comments:on and off for coup le of years,quit years ago Alcohol Use Standard Drinks/Week Comments Yes 0 (1 standard drink = 0.6 oz pur e alcohol) rare Sex Assigned at Date Recorded Not on file documented as of this encounter Plan of Treatment Scheduled Orders Name Type Priority Associated Diagnoses Orde r Schedule TSH Lab Routine Hypothyroidism due to acquired atrophy of thyroid Expected: 03/14/2015, Expires: 03/13/2016 documented as of this encounter Visit Diagnoses Diagnosis Hypothyroidism due to acquired atrophy of thyroid- Primary documented in this encounter Care Teams Head Holder Relationship Specialty Start Date End Date Ekta Petersen DO PCP - General Internal Medicine 10/16/13 05/11/18 [facility], Pcp PCP - General Internal Medicine 05/12/18 documented as of this encounter
--- OUTSIDE RECORDS SUMMARY | 2025-01-28 05:56 | XMS_ITS | Encounter Summary ---
Author Organization [facility] Address [address] [place] [address] Care Team Providers Care R&D Engineer Name Role Phone Ekta Petersen DO Primary Care Pro vider Unavailable [facility], Pcp Primary Care Provider Unavailabl e Encounter Details Date Type Department Care Team Description 03/05/2014 Hospital Medical Records [address] [place] [address] Miky Ambriz PA-C Social History Tobacco Use Types Packs/Day Years [...] on filedocumented in this encounter Care Teams R&D Engineer Relationship Specialty Start Date End Date Ekta Petersen DO PCP - General Internal Medicine 10/16/13 05/11/18 [facility], Pcp PCP - General Internal Medicine 05/12/18 documented as of this encounter
--- OUTSIDE RECORDS SUMMARY | 2025-01-28 05:56 | XMS_ITS | Encounter Summary ---
Author Organization [facility] Address [address] [place] [address] Phone Care Team Providers Care Director Of Strategic Sales Name Role Phone Agueda Ann MD Primary Care Provider Andie Rossi MD Unavailable West Doll MD Unavailable [phone] Britany Coles MD Unavailable [phone] Naun Hoang MD Unavailable + Agueda Ann MD Unavailable Latosha Garcia OT Unavailable [phone] eMly Bhatti RN Unavailable [email or web address] Encounter Details Date Type Department Care Team (Late st Contact Info) Description 11/18/2022 Procedure Pass [facility] [address] [place] [address] Social History Tobacco Use Types Packs/Day Years [...] high school, GED, job training, learning the Ecuadorean language, technical skills, or developing parenting skills)? [...] documented as of this encounter Care Teams Director Of Strategic Sales Relationship Specialty Start Date End Date Agueda Ann MD [address] [place] [address] PCP - General Family Medicine 02/01/19 Andie Rossi MD [address] [place] [address] Neurology 03/02/19 West Doll MD [address] [place] [address] 104 [place] [address] Cardiology 03/02/19 Britany Coles MD [address] [facility] 140 [place] [phone] [email or web address] [email or web address] 03/02/19 [place] [address] [place] [address] Infectious Diseases 03/02/19 Agueda Ann MD [address] [address] [email or web address] Insurance Assigned Provider 07/02/23 04/02/24 Latosha Garcia, OT 30 [place] [address] [email or web address] Transitions Executive Director Of MarketingSupervisor Ski Production Therapy 11/24/22 11/25/22 Mely Bhatti, NICOLE [address] [place] [address] [email or web address] PHCM Executive Director Of Marketing 05/12/23 06/09/23 documented as of this encounter Additional Source Comments The information contained in this document represents components of the legal health record. It is not the complete legal health record.[facility]
--- OUTSIDE RECORDS SUMMARY | 2025-01-28 05:56 | XMS_ITS | Encounter Summary ---
Author Organization [facility] Address [address] [place] [address] Care Team Providers Care Clinical Review Specialist Name Role Phone Ekta Petersen DO Primary Care Pro vider Unavailable [facility], Pcp Primary Care Provider Unavailabl e Encounter Details Date Type Department Care Team Description 02/10/2015 Walk In Clinic Visit Medical Records [address] [place] [address] Abstract, Provider Social History Tobacco Use Types [...] on filedocumented in this encounter Care Teams Clinical Review Specialist Relationship Specialty Start Date End Date Ekta Petersen DO PCP - General Internal Medicine 10/16/13 05/11/18 [facility], Pcp PCP - General Internal Medicine 05/12/18 documented as of this encounter
--- OUTSIDE RECORDS SUMMARY | 2025-01-28 05:56 | XMS_ITS | Encounter Summary ---
Author Organization [facility] Address [address] [place] [address] Care Team Providers Care Director Pediatric Name Role Phone Ekta Petersen DO Primary Care Pro vider Unavailable Community, Pcp Primary Care Provider Unavailabl e Encounter Details Date Type Department Care Team Description 11/09/2013 Release of Information Medical Records [address] [place] [id number] Abstract, Provider Social History Tobacco Use Types Packs/Day Years Used Date Smoking Tobacco: Never Alcohol Use Standard Drinks/Week Comments Not Asked 0 (1 standard drink = 0.6 oz pur e alcohol) Sex Assigned at Date Recorded Not on file documented as of this encounter Plan of Treatment Not on file documented as of this encounter Visit Diagnoses Not on filedocumented in this encounter Care Teams Director Pediatric Relationship Specialty Start Date End Date Ekta Petersen DO PCP - General Internal Medicine 10/16/13 05/11/18 [facility], Pcp PCP - General Internal Medicine 05/12/18 documented as of this encounter
--- OUTSIDE RECORDS SUMMARY | 2025-01-28 05:56 | XMS_ITS | Clinical Summary ---
Author Organization [address] Address [address] [place] [id number] Care Team Providers Care Cafe Helper Name Role Phone Unavailable Primary Care [...]
--- OUTSIDE RECORDS SUMMARY | 2025-01-28 05:56 | XMS_ITS | Encounter Summary ---
Author Organization [facility] Address [address] [place] [address] Care Team Providers Care Data Review Specialist Name Role Phone Ekta Petersen DO Primary Care Pro vider Unavailable [facility], Pcp Primary Care Provider Unavailabl e Encounter Details Date Type Department Care Team Description 11/13/2013 Orders Only Adult Medicine [address] [address] Ekta Petersen DO Dyslipidemia (Primary Dx); Type II or unspecified type diabetes mellitus without mention of complication, uncontrolled Social History Tobacco Use Types Packs/Day Years Used Date Smoking Tobacco: Never Alcohol Use Standard Drinks/Week Comments Not Asked 0 (1 standard drink = 0.6 oz pur e alcohol) Sex Assigned at Date Recorded Not on file documented as of this encounter Plan of Treatment Not on file documented as of this encounter Results * (ABNORMAL) LIPID PROFILE (01/31/2014 7:54 AM EST) Cholesterol 146 0 - 200 mg/dL 01/31/2014 3:42 PM EST [facility] TRIGLYCERIDES 169(H) 0 - 150 mg/dL 01/31/2014 3:42 PM EST [facility] HDL CHOLESTEROL 38(L) >40 mg/dL 4 3:42 PM EST [facility] LDL CALCULATED 75 0 - 100 mg/dL 01/31/2014 4:10 PM EST [facility] TC-HDLC RATIO 4 0.0 - 4.4 mg/dL 01/31/2014 3:42 PM EST [facility] 01/31/2014 7:54 AM EST 01/31/2014 7:54 AM EST Ekta Cornejo [employer] [facility] Performing Organization Address [facility] Co de Phone Number [address] * (ABNORMAL) MICROALBUMIN/CREATININE, URINE (01/31/2014 7:54 AM EST) CREAT,RANDOM URINE 102 mg/dL 01/31/2014 7:00 PM [facility] MICROALBUMIN, RANDOM 465.9(H) 0.0 - 29.0 mg/L 01/31/2014 7:28 PM [facility] MICROALB/CRE RATIO RANDOM 456.7(H) <30.0 mg/g 01/31/2014 7:28 PM [facility] 01/31/2014 7:54 AM EST 01/31/2014 7:54 AM EST Ekta Cornejo [employer] [facility] Performing Organization Address [facility] de Phone Number [address] * (ABNORMAL) BASIC METABOLIC PANEL (01/31/2014 7:54 AM EST) GLUCOSE 154(H) 70 - 100 mg/dL 01/31/2014 3:42 PM [facility] Comment: Reference range applicable to fasting specimens only Based on recommendations from the ADA and AACE, the fasting glucose reference range has been changed to 70-100 mg/dL. This change is effective August 11, 2009 BUN 13 5 - 25 mg/dL 01/31/2014 3:42 PM [facility] CREAT 0.6(L) 0.7 - 1.5 mg/dL 01/31/2014 3:42 PM [facility] GFR > 60 >60 01/31/2014 4:10 PM [facility] Comment: If patient is -[place]oc[place], multiply result by 1.21 Chronic Kidney Disease: < 60 ml/min/1.73 square meters Kidney Failure: < 15 ml/min/1.73 square meters Sodium 134 133 - 145 mEq/L 01/31/2014 3:42 PM EST [facility] Potassium 4.5 3.5 - 5.2 mEq/L 01/31/2014 3:42 PM EST [facility] Chloride 98 96 - 108 mEq/L 01/31/2014 3:42 PM EST [facility] CO2 23.9 21.0 - 32.0 mEq/L 01/31/2014 3:42 PM EST [facility] CALCIUM 9.8 8.5 - 10.5 mg/dL 01/31/2014 3:42 PM EST [facility] 01/31/2014 7:54 AM EST 01/31/2014 7:54 AM EST Ekta Cano DO LAB Performing Organization Address [facility] Co de Phone Number [address] * (ABNORMAL) HEMOGLOBIN A1C (01/31/2014 7:54 AM EST) Glycosylated Hemoglobin A1C 7.3(H) 4.0 - 6.0 % 01/31/2014 7:27 PM EST [facility] Comment: HbA1C VALUES MAY NOT ACCURATELY REFLECT MEAN BLOOD GLUCOSE IN PATIENTS WITH HEMOGLOBIN VARIANTS SUCH HbF, HbS. 01/31/2014 7:54 AM EST 01/31/2014 7:54 AM EST Ekta Cano DO LAB [address] documented in this encounter Visit Diagnoses Diagnosis Dyslipidemia- Primary Other and unspecified hyperlipidemia Type II or unspecified type diabetes mellitus without mention of complication, uncontrolled documented in this encounter Care Teams Data Review Specialist Relationship Specialty Start Date End Date Ekta Petersen DO PCP - General Internal Medicine 10/16/13 05/11/18 [facility], Pcp PCP - General Internal Medicine 05/12/18 documented as of this encounter
--- OUTSIDE RECORDS SUMMARY | 2025-01-28 05:56 | XMS_ITS | Patient Health Record ---
Author Organization [facility] Katie tate Billing Info Address [address] [place] [id number] Care Team Providers Care Art Dealer Name Role Phone BARTOLO Dunbar Unavailable [phone] Reason For Referral No Information Plan Of Treatment No Information
--- OUTSIDE RECORDS SUMMARY | 2025-01-28 05:56 | XMS_ITS | Data Portability ---
Author Organization [facility], Main Office Address [address] [address] [address] [place] [address] Care Team Providers Care Real Estate Portfolio Manager Name Role Phone VINI DOWLING 1ST FLOOR OTHER BEBE GUTIERREZ Primary Care Provider [phone] Assessment Encounter Date Assessment Date Assessment LastModified [...] Address Organization Details Recorded Time Diabetes mellitus 02960225 Active 2023 MIRI NORTON [address] [facility], [address], [place], [address], [facility] 4 20:18:04 Essential hypertensio n 97972311 Active 2023 MIRI NORTON [address] [facility], [address], [place], [address], [facility] 4 20:18:10 Hyperlipide reinier 43715826 Active 2023 [address]IRI NORTON [address] [place] [address], [address], [place], [address], [facility] 4 20:18:16 Femoral-pop liteal artery bypass graft Completed 202309/01/20[address]IRI NORTON [address] [place] [address], [address], [place], [address], [facility] 4 22:16:23 Anemia 741630293 Active 2023 MIRI NORTON [address] [place] [address], [address], [place], [address], [facility] 4 20:20:45 Cerebrovasc ular accident 827572195 Active 2023 MIRI NORTON [address] [place] [address], [address], [place], [address], [facility] 4 20:21:06 Femoro-ante rior tibial bypass graft Completed 202309/01/2023 MIRI NORTON [address] [place] [address], [address], [place], [address], [facility] 4 22:16:23 Chronic kidney disease stage 3 674106255 Active 2023 MIRI NORTON [address] [place] [address], [address], [place], [address], [facility] 4 20:28:49 Peripheral vascular disease 804776339 Active 2023 MIRI NORTON [address] [place] [address], [address], [place], [address], [place] [facility] 20:29:56 Asthenia 96889920 Active 2023 PÉREZ LUNDBERG, MIRI [address], [address], [place], [address], [facility] 20:30:45 Insomnia 522739982 Active 2023 PÉREZ LUNDBERG, MIRI [address], [address], [place], [address], [facility] 4 21:49:49 Constipatio n 01468219 Active 2023 MIRI NORTON [address], [address], [place], [address], [facility] 4 21:52:14 Acute kidney injury 87394856 Active 2023 MIRI NORTON [address], [address], [place], [address], [facility] 4 21:56:55 Hypocalcemi a 9813456 Completed 202309/01/2023 MIRI NORTON [address], [address], [place], [address], [facility] 4 22:16:23 Myasthenia gravis 60258655 Active 2023 MIRI NORTON [address], [address], [place], [address], [facility] 4 22:10:42 Aphasia 93796962 Completed 202309/01/2023 MIRI NORTON [address], [address], [place], [address], [facility] 4 22:16:23 Vascular dementia 622586890 Active 2023 MIRI NORTON [address], [address], [place], [address], [facility] 4 13:06:33 Amputated below knee 251111596 Active 2023 MIRI NORTON [address], [address], [place], [address], [facility] 4 16:38:11 Delirium 6929938 Active 2023 [address]IRI NORTON [address], [address], [place], [address], [facility] 4 16:54:43 Dysphagia 42156409 Active [address]P [address], [address], [place], [address], [facility] 4 16:55:09 Toxic encephalopa thy 10022817 Active 2023 JOHN NORTONP [address] [facility], [address], [place], [address], [facility] 4 16:55:43 Hypothyroid ism 87429662 Active 2023 JOHN NORTONP [address] [facility], [address], [place], [address], [facility] 4 22:18:37 Anxiety 93030798 Active 2023 PÉREZ LUNDBERG [facility] [address] [facility], [address], [place], [address], [facility] 4 22:24:04 Carotid artery stenosis 47202783 Active 2023 MIRI NORTON [address] [facility], [address], [place], [address], [facility] 4 12:10:00 Problem Notes None [...] % 118/68 mm[Hg] MIRI NORTON [address] [facility], [address], [place], [address], [facility] 4 14:16:49 Date Recorded Body height Heart rate Respiratory rate Body temperature Oxygen saturation Oxygen saturation in Arterial blood by Pulse oximetry Systolic And Diastolic Provider Name and Address Organization Details Last Updated DateTime 4 165.1 cm 73 /min 18 /min 98 [degF] 94 % 94 % 111/76 mm[Hg] MIRI NORTON [address] [facility], [facility] [address], [place], [address], [facility] 4 11:35:13 Date Recorded Body height Respiratory rate Body temperature Oxygen saturation Oxygen saturation in Arterial blood by Pulse oximetry Heart rate Systolic And Diastolic Provider Name and Address Organization Details Last Updated DateTime 4 165.1 cm 18 /min 98 [degF] 94 % 94 % 68 /min 118/71 mm[Hg] MIRI NORTON [address] [facility], [address], [place], [address], [facility] 4 16:01:39 Date Recorded Body height Body mass index (BMI) Body weight Heart rate Respiratory rate Body temperature Oxygen saturation Oxygen saturation in Arterial blood by Pulse oximetry Systolic And Diastolic Provider Name and Address Organization Details Last Updated DateTime 4 165.1 cm 28.6 kg/m2 61675.8 9 g 73 /min 16 /min 98.4 [degF] 100 % 100 % 135/68 mm[Hg] MIRI NORTON [address] [facility], [address], [place], [address], [facility] 4 15:14:16 Social History Question Answer Notes LastModified by Organizat ion Details LastModified Time Tobacco Smoking Status Never Smoker MIRI NORTON [address] [facility], [address], [place], [address], [facility] 06/30/2023 02:31:25 Do You Have An [...] Do You Have A Medical Power Of Theatrical Performer? Yes Information not available 07/22/2023 What Was [...] Time Tdap 9 completed Elle South null, [facility] 07/01/2023 13:25:18 Tdap 8 completed Elle South null, [facility] 07/01/2023 13:25:33 Pneumococcal conjugate PCV20, polysaccharide [id number] conjugate, adjuvant, PF 2 completed Elle South [facility], [facility] 07/01/2023 13:25:55 pneumococcal polysaccharide PPV23 4 completed Elle South null, [facility] 07/01/2023 13:26:09 pneumococcal polysaccharide PPV23 7 completed Elle South [facility] 07/01/2023 13:26:18 influenza, unspecified formulation 2 completed Elle South [facility] 07/01/2023 13:26:47 influenza, unspecified formulation 3 completed Elle Brannon [facility], [facility] 07/01/2023 13:26:55 SARS-COV-2 (COVID-19) vaccine, UNSPECIFIED 1 completed Elle Brannon [facility] 07/01/2023 13:27:17 SARS-COV-2 (COVID-19) vaccine, UNSPECIFIED 1 completed Elle Brannon [facility] 07/01/2023 13:27:40 SARS-COV-2 (COVID-19) vaccine, UNSPECIFIED 1 completed Elle Brannon [facility], [facility] 07/01/2023 13:27:55 SARS-COV-2 (COVID-19) vaccine, UNSPECIFIED 2 [facility] 13:28:04 SARS-COV-2 (COVID-19) vaccine, UNSPECIFIED 2 completed [facility] 13:28:24 SARS-COV-2 (COVID-19) vaccine, UNSPECIFIED 3 completed Elle Brannon [facility] 07/01/2023 13:28:37 zoster, unspecified formulation 9 completed Elle South [facility] 07/01/2023 13:29:06 zoster, unspecified formulation 9 completed Elle South [facility] 07/01/2023 13:29:21 Past Encounters Encounter ID Performer Location Encounter Start Date Encounter Closed Date Diagnosis/Indication Diagnosis SNOMED-CT Code Diagnosis ICD10 Code Diagnosis IMO Codes Diagnosis Note [id number] MIRI NORTON [address] [facility] [address] [place] [address] 06/29/2023 15:34:40 07/22/2023 14:35:38 Peripheral vascular disease 709653472 I73.9 s/p right femoral endarterec bridget with [...] rightfollo w up with vascular 06/29 Asthenia 62568862 R53.1 hx of myasthenia gravisPT/O T eval and treat Diabetes mellitus 739625 09 E11.9 A1c 5.7 on 06/23hospit al records indicate that she states she is taking for constipati on, she is not sure she is a diabetic.c ontinue metformin 500 mg BIDcontinu e to monitor FSfollow-u p with PCP after discharge for further management Essential hypertension 61380073 I10 continue lisinopril 5 mg dailyconti nue metoprolol 50 mg bidfurosem oxana 40 mg dailymonit or BP /labs Hyperlipidemia 06969756 E78.5 atorvastat in 40 mg dailymonit or lipids prn Insomnia 893449499 G47.0 0 continue melatonin 9 mg hscontinue trazadone 12.5 mg hs prn Constipation 42010814 K5 9.00 continue colace 100 mg bidcontinu e miralax 17 gm dailyincre ase oral hydration Anemia 105119627 D64.9 continue ferrous sulfate 325 mg dailymonit or CBCH&H stable at 7.9/25.1 Hypocalcemia 4727438 E83 .51 continue calcium carbonate 500 mg dailyconti nue cholecalci ferol 1000 u daily Myasthenia gravis 106554 04 G70.00 carrying dxmaintain safety/pre cautionsno t on medication Cerebrovas cular accident 458865089 I63.9 carrying dx Chronic ki dney disease stage 3 568171213 N18.30 mahi resolved in acute careavoid nephrotoxi c medication smonitor labs [id number] [facility] [address] [place] [address] 06/30/2023 11:39:21 07/04/2023 14:42:16 Bleeding from nose 538319994 R04.0 uncontroll ed bleeding from right narespt is on multiple anticoag( asa, eliquis and plavix) held this morning.wi ll send to ED for eval and tx. [id number] MIRI NORTON [address] [place] [address] 07/12/2023 11:03:46 07/19/2023 11:10:58 Open wound of right foot 6823191160 8839372 S91.301A dorsal right foot with wound vacDo Not remove wound vac, she has appt with vascular on 07/13 Surgical i ncision wound of skin 8045765083 00 R23.8 right lateral mid thigh with 22 nehemias right low leg corral 12 staple right lower extremity medial thigh wound with packing Peripheral vascular disease 766957510 I73.9 s/p right femoral endarterec bridget with [...] rightfollo w up with vascular 06/29 Asthenia 97878533 R53.1 hx of myasthenia gravisPT/O T eval and treat Diabetes mellitus 143650 09 E11.9 A1c 5.7 on 06/23hospit al records indicate that she states she is taking for constipati on, she is not sure she is a diabetic.c ontinue metformin 500 mg BIDcontinu e to monitor FSfollow-u p with PCP after discharge for further management Essential hypertension 82090628 I10 continue lisinopril 5 mg dailyconti nue metoprolol 50 mg bidfurosem oxana 40 mg dailymonit or BP /labs Hyperlipidemia 33058672 E78.5 atorvastat in 40 mg dailymonit or lipids prn Insomnia 949582351 G47.0 0 continue melatonin 9 mg hscontinue trazadone 12.5 mg hs prn Constipation 25492493 K5 9.00 continue colace 100 mg bidcontinu e miralax 17 gm dailyincre ase oral hydration Anemia 095235180 D64.9 baseline 7.9-8decre ased to 7.0 due to epistaxiss he was transfused 2 PRBCsconti nue ferrous sulfate 325 mg dailymonit or CBC Hypocalcemia 5947967 E83 .51 continue calcium carbonate 500 mg dailyconti nue cholecalci ferol 1000 u daily Myasthenia gravis 860007 04 G70.00 carrying dxmaintain safety/pre cautionsno t on medication Cerebrovas cular accident 086528404 I63.9 carrying dx Chronic ki dney disease stage 3 459357079 N18.30 mahi resolved in acute careavoid nephrotoxi c medication smonitor labs Aphasia 62289817 R47.01 hx of CVAIntermi ttent aphasia/Wo rd finding difficulty no new stroke seen on brain MRI.Suspec t vascular dementia, may have some hypoperfus ion given her anemia. [id number] MIRI NORTON [address] [place] [address] rd [place] [address] 07/18/2023 10:15:58 07/22/2023 15:25:22 Open wound of right foot 0405808551 9323190 S91.301A s/p wound debridemen t 07/13, will be returning to vascular 07/19 for integra placement and wound vac Surgical i ncision wound of skin 3389867569 00 R23.8 right lateral mid thigh with 22 staplesrig ht low leg corral 12 staplerigh t lower extremity medial thigh wound with packingnur sing to removed on 07/18 ord placed in [facility] Peripheral vascular disease 806633401 I73.9 s/p right femoral endarterec bridget with [...] 6 prncontinu e lidocaine patch right Asthenia 85827491 R53.1 hx of myasthenia gravisPT/O T eval and treat Diabetes mellitus 397432 09 E11.9 A1c 5.7 on 06/23hospit al records indicate that she states she is taking for constipati on, she is not sure she is a diabetic.c ontinue metformin 500 mg BIDcontinu e to monitor FSfollow-u p with PCP after discharge for further management Essential hypertension 31723004 I10 continue lisinopril 5 mg dailyconti nue metoprolol 50 mg bidfurosem oxana 40 mg dailymonit or BP /labs Constipation 75542934 K5 9.00 continue colace 100 mg bidcontinu e miralax 17 gm dailyincre ase oral hydration Anemia 682851208 D64.9 baseline 7.9-8decre ased to 7.0 due to epistaxiss he was transfused 2 PRBCsconti nue ferrous sulfate 325 mg dailymonit or CBC Aphasia 49963139 R47.01 hx of CVAIntermi ttent aphasia/Wo rd finding difficulty no new stroke seen on brain MRI.Suspec t vascular dementia, may have some hypoperfus ion given her anemia. [id number] Afia Tierney MD [address] [place] [address] 07/22/2023 14:24:36 08/15/2023 12:08:31 Open wound of right foot 1555193569 7153665 S91.301A Continue wound care as ordered.F/ U with surgeon as planned for further debridemen t and wound vac placement. Surgical i ncision wound of skin 4422038576 00 R23.8 Wounds healing well.Stale s removed. Peripheral vascular disease 973770150 I73.9 s/p right femoral endarterec bridget with [...] mg q 6 hrs prnMonitor sxs. Asthenia 57956513 R53.1 As above. Diabetes mellitus 537249 09 E11.9 HgA1C was 5.7 on 06/23All sugars <200 since here, so fingerstic ks d/c'd on 07/18Contin ue metformin 500 mg BIDMonitor fingerstic ks prn. Essential hypertension 52424152 I10 BP in good control on lisinopril 5 mg qd, metoprolol 50 mg BID, and furosemide 40 mg qdMonitor BP and labs. Constipation 86219838 K5 9.09 Continue bowel meds as ordered.Mo nitor bowel function. Anemia 276420747 D64.89 Multifacto rial.Galindo nue ferrous sulfate 325 mg qdMonitor CBC Aphasia 63853317 R47.01 As above. Hyperlipidemia 91744220 E78.49 Continue atorvastat in 40 mg qdMonitor lipids yearly Insomnia 020155420 G47.0 0 Continue melatonin 9 mg qhs and trazadone 12.5 mg qhs prnMonitor sleep patterns. Hypocalcemia 3892646 E83 .51 Doesn't have hypocalcem ia.Correct ed Ca+ os 9.08Likely is on Ca+ and vit D for osteopenia .Continue calcium carbonate 500 mg qd and cholecalci ferol 1000 IU qd. Myasthenia gravis 542986 04 G70.00 Carrying dxOn no meds at this time.Very deconditio kelsy.Needs PT/OT for strengthen ing, balance, gait training, safety and function.C ontinue fall precaution s.Monitor for safety. Cerebrovas cular accident 966439218 I63.89 With mod to severe aphasia.SL P eval and tx.Continu e meds as above.Prakash emory for new neuro sxs. Chronic ki dney disease stage 3 981985151 N18.32 At baseline.C ontinue to avoid nephrotoxi c meds as able.Monit or labs.Renal consult prn. Anxiety 38974449 F41.1 Very anxious tonight. Anxiety makes it even harder for her to get her words out.Will start lorazepam 0.5 mg q 6 hrs prn [id number] MIRI NORTON [address] [place] [address] [place] [address] 07/25/2023 12:45:25 07/26/2023 15:42:48 Open wound of right foot 1680284968 0195926 S91.301A 07/19: s/p wound debridemen tcontinue wound treatment as ordered.fo llow up with [facility] on 08/01 at 130 pm Surgical i ncision wound of skin 5784431809 00 R23.8 right lateral mid thigh - HEALING NEHEMIAS REMOVED IN ACUTE CAREright low leg corral healingrig ht lower extremity medial thigh wound with packing Peripheral vascular disease 003376598 I73.9 s/p right femoral endarterec bridget with [...] 6 prncontinu e lidocaine patch right Asthenia 00830270 R53.1 hx of myasthenia gravisPT/O T eval and treat Diabetes mellitus 457205 09 E11.9 continue metformin 500 mg BIDcontinu e to monitor FSfollow-u p with PCP after discharge for further management Essential hypertension 72454170 I10 continue lisinopril 5 mg dailyconti nue metoprolol 50 mg bidfurosem oxana 40 mg dailymonit or BP /labs Constipation 67562701 K5 9.00 continue colace 100 mg bidschedul ed miralax 17 gm daily and senna 8.6 mg daily.incr ease oral hydration Anemia 649682284 D64.9 see hpitoday 6.7 -will recheck on 07/25contin ue ferrous sulfate 325 mg dailycolor is normal, there is no SOB, extremitie s are warm.monit or CBC [id number] MIRI NORTON [address] [place] [address] [place] [address] 07/29/2023 09:49:56 08/02/2023 10:28:17 Open wound of right foot 2908980149 5382126 S91.301A 07/19: s/p wound debridemen tcontinue wound treatment as ordered.fo llow up with [facility] on 08/01 at 130 pm Peripheral vascular disease 376097076 I73.9 s/p right femoral endarterec bridget with [...] prncontinu e lidocaine patch right Diabetes mellitus 083629 09 E11.9 continue metformin 500 mg BIDcontinu e to monitor FSfollow-u p with PCP after discharge for further management Essential hypertension 48725852 I10 continue lisinopril 5 mg dailyconti nue metoprolol 50 mg bidfurosem oxana 40 mg dailymonit or BP /labs Anemia 055614227 D64.9 see hpicontinu e ferrous sulfate 325 mg dailycolor is normal, there is no SOB, extremitie s are warm.monit or CBC [id number] MIRI NORTON [facility] [address] [facility] [place] [address] 08/05/2023 09:45:20 08/09/2023 11:18:14 Open wound of right foot 1281641100 1727561 S91.301A 07/19: s/p wound debridemen tcontinue wound treatment as ordered.fo llow up with [facility] on 08/02 with new wound care orders-[place] care for R foot: Apply saline moistened Promogran over Puraply three times weekly. Peripheral vascular disease 005241227 I73.9 s/p right femoral endarterec bridget with [...] prncontinu e lidocaine patch right Diabetes mellitus 887251 09 E11.9 continue metformin 500 mg BIDcontinu e to monitor FSfollow-u p with PCP after discharge for further management Essential hypertension 59508502 I10 continue lisinopril 5 mg dailyconti nue metoprolol 50 mg bidfurosem oxana 40 mg dailymonit or BP /labs Anemia 068252688 D64.9 see hpicontinu e ferrous sulfate 325 mg dailycolor is normal, there is no SOB, extremitie s are warm.monit or CBC [id number] M[facility] NORTON [facility] [address] [facility] [place] [address] 08/09/2023 08:23:37 08/12/2023 11:43:31 Open wound of right foot 4376734020 0768316 S91.301A 07/19: s/p wound debridemen tcontinue wound treatment as ordered.fo llow up with [facility] on 08/02 with new wound care orders-[place] care for R foot: Apply saline moistened Promogran over Puraply three times weekly.[facility]. [facility]ipheral vascular disease 931944649 I73.9 s/p right femoral endarterec bridget with [...] prncontinu e lidocaine patch right Diabetes mellitus 843388 09 E11.9 continue metformin 500 mg BIDcontinu e to monitor FS Essential hypertension 87731359 I10 continue lisinopril 5 mg dailyconti nue metoprolol 50 mg bidfurosem oxana 40 mg dailymonit or BP /labs Anemia 375784933 D64.9 H/H has been stable.con tinue ferrous sulfate 325 mg dailycolor is normal, there is no SOB, extremitie s are warm.monit or CBC [id number] MIRI NORTON [address] [place] [address] 08/15/2023 13:44:19 08/18/2023 13:20:18 Open wound of right foot 2343698449 0045093 S91.301A 07/19: s/p wound debridemen tcontinue wound treatment as ordered.fo llow up with [facility] on 08/02 with new wound care orders-[facility] care for R foot: Apply saline moistened Promogran over Puraply three times weekly.07/26 5 :s/p right foot debridemen t, applicatio n of skin substitute graftfollo w up appt 08/15 at [facility] with vascular. Peripheral vascular disease 289230795 I73.9 s/p right femoral endarterec bridget with [...] prncontinu e lidocaine patch right Diabetes mellitus 059522 09 E11.9 continue metformin 500 mg BIDcontinu e to monitor FS Essential hypertension 25092672 I10 continue lisinopril 5 mg dailyconti nue metoprolol 50 mg bidfurosem oxana 40 mg dailymonit or BP /labs Anemia 276505195 D64.9 H/H 6.6/21.2- will repeat labsconsid er adding ascorbic acid dailyconti nue ferrous sulfate 325 mg dailycolor is normal, there is no SOB, extremitie s are warm.monit or CBC [id number] MIRI NORTON [address] [place] [address] 08/16/2023 08:21:08 08/18/2023 15:50:07 Open wound of right foot 6891103225 0525730 S91.301A see HPI with new finding today,07/19 : s/p wound debridemen :s/p right foot debridemen t, applicatio n of skin substitute graft08/10: tuesday morning sent back to S for excessive wound bleeding thru dressings- transfused 1 unit of packed red blood cells.08/11 : returned from [facility].: abnormal H/H 6.3/19.9 Peripheral vascular disease 093838929 I73.9 s/p right femoral endarterec bridget with [...] 6 prncontinu e lidocaine patch right Anemia 133825292 D64.9 H/H 6.3/19.9co ntinue ferrous sulfate 325 mg dailycolor is pale there is no SOB, extremitie s are warm, right foot cold. [id number] [facility]ORT[facility] [address] [place] [address] [place] [address] 08/29/2023 12:13:56 09/05/2023 15:08:58 Amputated below knee 633413316 Z89.519 Critical limb ischemia of right lower extremity now s/p right below knee amputation .continue oxycodone 5 mg q 6 prnfollow up with vascular on 09/01/23 Peripheral vascular disease 171542959 I73.9 s/p below knee amputation continue asa, plavix and eliquiscon tinue oxycodonec ontinue lyrica 150 mg qd and 200 mg at HS Delirium 9516956 R41.0 resolved in acute careof note she is at baseline status, she is alert and oriented. Dysphagia 63028196 R13.1 0 resolvedsh e was seen by speech in acute acute care, continue reg diet with thin liquids Toxic encephalopathy 283 19869 G92.9 resolved in acute careammoni a level 20 on 08/24 Diabetes mellitus 630682 09 E11.9 continue metformin 500 mg BIDcontinu e to monitor FS Essential hypertension 70158244 I10 continue lisinopril 5 mg dailyconti nue metoprolol 50 mg bidfurosem oxana 40 mg dailymonit or BP /labs Hypothyroidism 40490351 E03.9 continue levothyrox ine 200 mcgtsh 8- recheck labs in 6-8 weeks Hyperlipidemia 42739506 E78.49 atorvastat in 40 mg dailymonit or lipids prn Anemia 201102524 D64.9 continue ferrous sulfate 325 mg dailycont. Vit D 1000u daily Constipation 06684012 K5 9.09 continue colace 100 mg bidschedul ed miralax 17 gm daily and senna 8.6 mg daily.incr ease oral hydration Anxiety 75641651 F41.9 continue ativan 0.5 mg q6 prnpsych eval and tx- she had recent amputation , I think she will benefit from speaking with psych, she will need support coping with limp loss. [id number] MIRI NORTON [address] [place] [address] [place] [address] 08/31/2023 10:12:07 09/05/2023 16:19:16 Cough 99299611 R05.9 08/29: non productive congested cough- is not interrupti ng with sleepchest xay showed no active infiltrate s or changes ofpulmonar y venous congestion or evidence of a pleural effusion.w ill start mucinex 600 mg q12 for 7 days and re eval. Amputated below knee 299 144181 Z89.519 Critical limb ischemia of right lower extremity now s/p right below knee amputation .continue oxycodone 5 mg q 6 prnfollow up with vascular on 09/01/23PT/O T eval and treatment for conditioni ng and strengthen ing. Peripheral vascular disease 907535134 I73.9 s/p below knee amputation continue asa, plavix and eliquiscon tinue oxycodonec ontinue lyrica 150 mg qd and 200 mg at HS Essential hypertension 88841049 I10 continue lisinopril 5 mg dailyconti nue metoprolol 50 mg bidfurosem oxana 40 mg dailymonit or BP /labs Hypothyroidism 26596616 E03.9 continue levothyrox ine 200 mcgtsh 8- recheck labs in 6-8 weeks Anxiety 85266286 F41.9 continue ativan 0.5 mg q6 prnpsych eval and tx- she had recent amputation , I think she will benefit from speaking with psych, she will need support coping with limp loss.mood is stable today. [id number] MIRI NORTON [address] [address] 09/05/2023 08:59:26 09/08/2023 16:20:28 Cough 59440836 R05.9 resolved Amputated below knee 299 415359 Z89.519 right below knee amputation .continue oxycodone 5 mg q 6 prncontinu e PT/OT eval and treatment for conditioni ng and strengthen ing.contin ue wound care Betadine, dry gauze, the stump hazardous waste technician and the amputation shield. Peripheral vascular disease 479029071 I73.9 s/p below knee amputation continue asa, plavix and eliquiscon tinue oxycodonec ontinue lyrica 150 mg qd and 200 mg at HS Essential hypertension 37665130 I10 continue lisinopril 5 mg dailyconti nue metoprolol 50 mg bidfurosem oxana 40 mg dailymonit or BP /labs Hypothyroidism 40073155 E03.9 continue levothyrox ine 200 mcgtsh 8- recheck labs in 6-8 weeks Anxiety 26849862 F41.9 continue ativan 0.5 mg q6 prnshe was seen by psych specialist who is recommendi ng starting duloxetine , benfits discuused ,patient will like to think about it. Carotid ar dahlia stenosis 58298551 I65.29 stent placement in juner. Amnada would like her on aspirin and plavix for 3 months post op, then can resume aspirin and eliquis.Sh e will need a carotid duplex later on this summer to recheck the right carotid, determine whether to reinterven e on the stent. [id number] MIRI NORTON JOSEY [address] [place] [id number] 09/07/2023 11:22:32 09/09/2023 08:57:56 Amputated below knee 744272763 Z89.519 right below knee amputation .continue oxycodone 5 mg q 6 prncontinu e PT/OT eval and treatment for conditioni ng and strengthen ing.contin ue wound care Betadine, dry gauze, the stump hazardous waste technician and the amputation shield. Peripheral vascular disease 690866112 I73.9 s/p below knee amputation continue asa, plavix and eliquiscon tinue oxycodonec ontinue lyrica 150 mg qd and 200 mg at HS Essential hypertension 20071389 I10 continue lisinopril 5 mg dailyconti nue metoprolol 50 mg bidfurosem oxana 40 mg dailymonit or BP /labs Hypothyroidism 85152643 E03.9 continue levothyrox ine 200 mcgtsh 8- recheck labs in 6-8 weeks Anxiety 09485149 F41.9 continue ativan 0.5 mg q6 prnshe was seen by psych specialist who is recommendi ng starting duloxetine , benfits discuused ,patient will like to think about it. Carotid ar dahlia stenosis 16415426 I65.29 stent placement in juner. Marecki would like her on aspirin and plavix for 3 months post op, then can resume aspirin and eliquis.Sh e will need a carotid duplex later on this summer to recheck the right carotid, determine whether to reinterven e on the stent. [id number] MIRI NORTON [facility] [address] [place] [id number] 5 09/12/2023 11:21:52 09/14/2023 16:46:41 Amputated below knee [id number] Z89.519 right below knee amputation .continue oxycodone 5 mg q 6 prncontinu e PT/OT eval and treatment for conditioni ng and strengthen ing.contin ue wound care Betadine, dry gauze, the stump hazardous waste technician and the amputation shield. Peripheral vascular disease 674867879 I73.9 s/p below knee amputation continue asa, plavix and eliquiscon tinue oxycodone Q 6continue lyrica 150 mg qd and 200 mg at HS Essential hypertension 80682104 I10 continue lisinopril 5 mg dailyconti nue metoprolol 50 mg bidfurosem oxana 40 mg dailymonit or BP /labs Hypothyroidism 74335188 E03.9 continue levothyrox ine 200 mcgtsh 8- recheck labs in 6-8 weeks Constipation 45502043 K5 9.09 she reports that she has [...] evening, will order imaging.in crease oral hydration [id number] MIRI NORTON VINI DOWLING [address] [place] [address] 09/15/2023 09:07:09 09/21/2023 10:30:12 Amputated below knee 158956903 Z89.519 right below knee amputation .continue oxycodone 5 mg q 6 prncontinu e PT/OT eval and treatment for conditioni ng and strengthen ing.contin ue wound care Betadine, dry gauze, the stump hazardous waste technician and the amputation shield. Peripheral vascular disease 739889873 I73.9 s/p below knee amputation continue asa, plavix and eliquiscon tinue oxycodone Q 6continue lyrica 150 mg qd and 200 mg at HS Essential hypertension 21358548 I10 continue lisinopril 5 mg dailyconti nue metoprolol 50 mg bidfurosem oxana 40 mg dailymonit or BP /labs Hypothyroidism 15686480 E03.9 labs completed on 09/06 seen today and noted with TSH 16.3 and T4 5.1she is currently taking levothyrox ine 200 mcg daily, will increase to 225 mcg and recheck 10/26 or sooner.she reports being tired at times but is not having any other sx at this time Constipation 99370375 K5 9.09 see hpinormact felipe bowel soundscont inue colace 100 mg bidcontinu e miralax 17 gm daily and increase senna 8.6 mg to BID [id number] Afia Tierney MD [address] [place] [address] 09/19/2023 15:52:03 09/21/2023 10:49:23 Amputated below knee 118257422 Z89.511 As above. Peripheral vascular disease 919455784 I73.89 S/P right BKA.Contin ue Plavix 75 [...] stapes out then and then can start hazardous waste technician.P rosthetics consult when ready. Essential hypertension 06673104 I10 BP remains in good control on lisinopril 5 mg qd, metoprolol 50 mg BID, and furosemide 40 mg qdMonitor BP and labs. Hypothyroidism 38837680 E03.9 Last TSH sl. high, with nl FT4, but low FT3.Contin ue levothyrox ine 225 mcgRecheck TSH as planned. Constipation 67061071 K5 9.09 No c/o today.Cont inue bowel meds as ordered.Mo nitor bowel function. Carotid ar dahlia stenosis 19676488 I65.29 S/P stent placement in 06/2023.To be on ASA and Plavix x 3 months.The n can stop Plavix.To have repeat U/S next month [id number] MIRI NORTON [facility] [address] [place] [address] 09/22/2023 13:52:47 09/23/2023 15:18:26 Amputated below knee 913223804 Z89.519 right below knee amputation .continue oxycodone 5 mg q 6 prncontinu e PT/OT for conditioni ng and strengthen ing.contin ue wound care Betadine, dry gauze, the stump hazardous waste technician and the amputation shield.lupe sing states wound healing without s/sx of infection. Peripheral vascular disease 861005848 I73.9 continue asa, plavix and eliquiscon tinue oxycodone Q 6continue lyrica 150 mg qd and 200 mg at HS Essential hypertension 83436937 I10 continue lisinopril 5 mg dailyconti nue metoprolol 50 mg bidfurosem oxana 40 mg dailymonit or BP /labs Hypothyroidism 09090119 E03.9 Continue levothyrox ine 225 mcgrecheck TSH around 10/26 [id number] MIRI NORTON [facility] [address] [place] [address] 09/27/2023 11:23:38 10/18/2023 07:43:35 Amputated below knee 292706642 Z89.519 right below knee amputation .continue oxycodone 5 mg q 6 prncontinu e PT/OT for conditioni ng and strengthen ing.contin ue wound care Betadine, dry gauze, the stump hazardous waste technician and the amputation shield.lupe sing states wound healing without s/sx of infection. Peripheral vascular disease 071861530 I73.9 continue asa, plavix and eliquiscon tinue oxycodone Q 6continue lyrica 150 mg qd and 200 mg at HS Essential hypertension 84655031 I10 continue lisinopril 5 mg dailyconti nue metoprolol 50 mg bidfurosem oxana 40 mg dailymonit or BP /labs Hypothyroidism 32084617 E03.9 Continue levothyrox ine 225 mcgrecheck TSH around 8 Anxiety 03619870 F41.9 continue ativan 0.5 mg q6 prnshe has agreed to try antidepres santshe was started on fluoxetine 20 mg daily on 09/18will monitor mood and behavior Diabetes mellitus 028547 09 E11.9 no recent BGL, will order weekly checks.con tinue metformin 500 mg BIDcontinu e to monitor FS [id number] MIRI NORTON [address] [address] 10/04/2023 09:15:00 10/18/2023 08:13:38 Amputated below knee 923282774 Z89.519 right below knee amputation .continue oxycodone 5 mg q 6 prncontinu e PT/OT for conditioni ng and strengthen ing.contin ue wound care Betadine, dry gauze, the stump hazardous waste technician and the amputation shield.lupe francisco states wound healing without s/sx of infection. she will have remaining stable removed this upcoming friday 10/06. Peripheral vascular disease 228653624 I73.9 continue asa, plavix and eliquiscon tinue oxycodone Q 6continue lyrica 150 mg qd and 200 mg at HS Essential hypertension 78682712 I10 continue lisinopril 5 mg dailyconti nue metoprolol 50 mg bidfurosem oxana 40 mg dailymonit or BP /labs Hypothyroidism 35663753 E03.9 Continue levothyrox ine 225 mcgrecheck TSH around 10/26 Anxiety 71794615 F41.9 continue ativan 0.5 mg q6 prnshe has agreed to try antidepres santshe was started on fluoxetine 20 mg daily on 09/18will monitor mood and behavior Diabetes mellitus 041054 09 E11.9 no recent BGL, will order weekly checks.con tinue metformin 500 mg BIDcontinu e to monitor FS7/724 BGL 120 [id number] MIRI NORTON [address] [address] 10/06/2023 08:54:05 10/18/2023 08:26:39 Amputated below knee 243829291 Z89.519 right below knee amputation .continue oxycodone 5 mg q 6 prn- will change to 24 prn and eventually stop of noted she has not used in 3 days.galindo nue PT/OT for conditioni ng and strengthen ing.contin ue wound care Betadine, dry gauze, the stump hazardous waste technician and the amputation shield.wou nd healing without s/sx of infection. she will have remaining nehemias removed this upcoming friday 10/06. Peripheral vascular disease 599882366 I73.9 continue asa, plavix and eliquiscon tinue oxycodone Q 6continue lyrica 150 mg qd and 200 mg at HS Essential hypertension 20837602 I10 continue lisinopril 5 mg dailyconti nue metoprolol 50 mg bidfurosem oxana 40 mg dailymonit or BP /labs Anxiety 26463378 F41.9 continue ativan 0.5 mg q6 prnshe has agreed to try antidepres santshe was started on fluoxetine 20 mg daily on 09/18[facility] monitor mood and behavior [id number] [facility] [address] [place] [address] 10/10/2023 10:05:30 10/18/2023 09:02:23 Amputated below knee 446506683 Z89.519 right below knee amputation .remaining nehemias removed on 10/07/23- she has small superficia l open area moist and draining scant serous output. wound care for to cleanse with NS and apply aquacel cover with gauze.cont inue oxycodone 5 mg q 12 prn-contin ue PT/OT for conditioni ng and strengthen ing.contin ue wound care, the stump hazardous waste technician and the amputation shieldwoun d healing without s/sx of infection. Peripheral vascular disease 383439112 I73.9 continue asa, plavix and eliquiscon tinue oxycodone Q 6continue lyrica 150 mg qd and 200 mg at HS Essential hypertension 92267908 I10 BP has been underconti nue lisinopril 5 mg dailyconti nue metoprolol 50 mg bidfurosem oxana 40 mg dailymonit or BP /labs Anxiety 62365996 F41.9 continue ativan 0.5 mg q6 prnshe has agreed to try antidepres santshe was started on fluoxetine 20 mg daily on 09/18will monitor mood and behavior Carotid ar dahlia stenosis 01209658 I65.29 10/09:Histo ry of bilateral TCAR and [...] whether to reinterven e on the stent. [id number] Tere HerreraMariajose MARTINI JOSEY [address] [facility] [place] [address] 10/14/2023 09:41:31 10/18/2023 09:28:24 Amputated below knee 218312997 Z89.519 does not need wrap. healedappl y skin prep BID nsg updated.wo rking with PTpain controlled . Vascular dementia 689421 004 F01.54 chronis stablediff iculty to recall thoughts and respond to questions. mood stablecont inue supportive caremonito r for decline. [id number] ZENOBIA BRADLEY JOSEY [address] [facility] [place] [address] 10/20/2023 09:58:42 10/22/2023 09:32:05 Amputated below knee 821514003 Z89.519 right below knee amputation .remaining nehemias removed on 10/07/23- continues to heal well.stop oxycodone 5 mg q 12 prn due to minimal usecontinu e PT/OT for conditioni ng and strengthen ing.contin ue wound care, the stump hazardous waste technician and the amputation shieldwoun d healing without s/sx of infection. Peripheral vascular disease 320594547 I73.9 continue asa, plavix and eliquiscon tinue lyrica 150 mg qd and 200 mg at HS for pain mgmt Essential hypertension 10611436 I10 VSS, BP soft on occasionco ntinue lisinopril 5 mg dailyconti nue metoprolol 50 mg bidfurosem oxana 40 mg dailymonit or BP /labs Anxiety 68961702 F41.9 continue ativan 0.5 mg q6 prn - occasional use, discussed with nsg. will renew for another 14 days.Dulox etine 20 mg daily recently started, orly. well so far, nsg. feels it has been helping mood and behaviors. Continue to monitorPsy ch following as well. Carotid ar dahlia stenosis 59637470 I65.29 History of bilateral TCAR and left [...] ultrasound , plavix, and follow up appt. [id number] MIRI NORTON [address] [place] [address] 10/25/2023 10:59:01 10/26/2023 15:44:22 Amputated below knee 288854191 Z89.519 right below knee amputation , continues to heal well.now open to air ,wound healing without s/sx of infection. continue tylenol and lyrica Peripheral vascular disease 590470726 I73.9 continue asa, plavix and eliquiscon tinue lyrica 150 mg qd and 200 mg at HS for pain mgmtwill discuss need to continue plavix at vascular appt 10/28/23 Essential hypertension 90909029 I10 continue lisinopril 5 mg dailyconti nue metoprolol 50 mg bidfurosem oxana 40 mg dailymonit or BP /labs Anxiety 74866119 F41.9 continue ativan 0.5 mg q6 prn - occasional use, discussed with nsg. will renew for another 14 days.Dulox etine 20 mg daily recently started, orly. well so far, nsg. feels it has been helping mood and behaviors. - seen by psych specialist on 10/23 reports feeling some improvemen t with duloxetine , recommende d to continueCo ntinue to monitorPsy ch following as well. Carotid ar dahlia stenosis 55968363 I65.29 History of bilateral TCAR and left [...] will be discussed at that appointmen t. [id number] MIRI NORTON [address] [place] [address] 10/26/2023 12:11:32 10/31/2023 16:07:08 COVID-19 163244731 U07.1 see hpiwill started paxlovid, isolation precaution supportati ve treatment: with mucinex 600 mg BID for 5 dayspaxlov id as orderedprn neb tx for sob. [id number] MIRI NORTON [address] [place] [address] 10/31/2023 16:29:45 11/01/2023 13:09:54 COVID-19 865313072 U07.1 she has been stable no reportable sx notedwill received last dose of paxlovid tonightiso lation precaution continue supportati ve treatment: prn neb tx for sob. Amputated below knee 299 661729 Z89.519 right below knee amputation , continues to heal well.now open to air ,wound healing without s/sx of infection. continue tylenol and lyrica Peripheral vascular disease 447773083 I73.9 continue asa, plavix and eliquiscon tinue lyrica 150 mg qd and 200 mg at HS for pain mgmtwill discuss need to continue plavix at vascular appt 10/28/23 Essential hypertension 63635563 I10 continue lisinopril 5 mg dailyconti nue metoprolol 50 mg bidfurosem oxana 40 mg dailymonit or BP /labs Anxiety 89361269 F41.9 continue ativan 0.5 mg q6 prn -continue Duloxetine 20 mg dailymood has been good.Galindo nue to monitorPsy ch following as well. Carotid ar dahlia stenosis 10759897 I65.29 History of bilateral TCAR and left [...] will be discussed at that appointmen tCandis [id number] MIRI NORTON [address] [place] [address] rd [place]REW [place]NANDEZ [address] 11/04/2023 09:52:30 11/08/2023 11:09:10 COVID-19 665330529 U07.1 completed anti-viral . Amputated below knee 299 310437 Z89.519 right below knee amputation , continues to heal well.now open to air ,wound healing without s/sx of infection. continue tylenol and lyrica Peripheral vascular disease 625565696 I73.9 continue asa, plavix and eliquis- on hold for now for melenacont inue lyrica 150 mg qd and 200 mg at HS for pain mgmt Essential hypertension 66466598 I10 continue lisinopril 5 mg dailyconti nue metoprolol 50 mg bidfurosem oxana 40 mg dailymonit or BP /labs Anxiety 01932103 F41.9 continue ativan 0.5 mg q6 prn -continue Duloxetine 20 mg dailyConti nue to monitorPsy ch following as well. Carotid ar dahlia stenosis 79257068 I65.29 History of bilateral TCAR and left [...] be discussed at that appointmen tCandis Chamberlain [id number] K92.1 11/02: nursing report black tarry stool, [...] hematemesi s, weakness, dizziness and or pallor. [id number] MIRI NORTON [address] [place] [address] [place]NANDE[place] [address] 11/07/2023 08:49:06 11/09/2023 10:55:24 Melena 4656354 K92.1 11/06: continue to have black tarry [...] s, weakness, dizziness and or pallor. Anemia 412389825 D64.9 H/H trending down today noted at 09/12-signi ficant drop in 7 days tested 3 times. continue ferrous sulfate 325 mg dailycont. Vit D 1000u daily [id number] ZENOBIA Ulloa [address] [place] [address] [place] [address] 11/12/2023 07:51:13 11/18/2023 09:17:41 Anemia 321903469 D64.9 [place] [facility]: Held Eliquis, aspirin and Plavix since [...] obtained with hemoglobin 6 on admission to [facility],No reports of blood in stool or melena [...] bmp weekly on mondays x 3 Esophagitis 19095706 K20 .90 no melena noted in hospital, [...] bmp weekly on mondays x 3 Anxiety 91266570 F41.9 while in hopsital her ativan 0.5 mg q6 prn was discontinu edcontinue Duloxetine 20 mg dailyConti nue to monitorPsy ch following as well. Hypothyroidism 50177081 E03.9 adjusted in hospitalco nt levothyrox ine 200 mcg po dailyreche ck tsh in 8 weeksmonit or Essential hypertension 52721148 I10 bp initially soft in hospital, lisinopril was held, now resolved and resumedcon tlisinopri l 5 mg po dailymetop rolol 50 mg po q 12 hoursmonit or Amputated below knee 299 431705 Z89.519 right below knee amputation , continues to heal well.galindo nue tylenol and lyricafu with vascular as planned Peripheral vascular disease 793101354 I73.9 eliquis on holdcontin ueasa, plavixlyri ca 150 mg qdmonitor Pressure i njury of coccygeal region of back stage II 1731350305 9968684 L89.152 healing denuded skin to right coccyx11/11 apply barrier cream topically bid and prnfrequen t brief changes and reposition ingmonitor for infection Vascular dementia 045281 004 F01.54 stablediff iculty to recall thoughts and respond to questions at baseline per staffmood stablecont inue supportive caremonito r for decline. [id number] MIRI NORTON [address] [place] [address] [place] [address] 11/14/2023 09:54:52 11/18/2023 10:04:39 Esophagitis 32549721 K20.90 no melena noted in hospital, but [...] bmp weekly on mondays x 3 Anemia 578612662 D64.9 [place] [facility] [place]: Held Eliquis, aspirin and Plavix since [...] obtained with hemoglobin 6 on admission to [facility],No reports of blood in stool or melena [...] bmp weekly on mondays x 3 Anxiety 52775788 F41.9 while in hopsital her ativan 0.5 mg q6 prn was discontinu edcontinue Duloxetine 20 mg dailyConti nue to monitorPsy ch following as well. Hypothyroidism 87359960 E03.9 adjusted in hospitalco nt levothyrox ine 200 mcg po dailyreche ck tsh in 8 weeksmonit or Essential hypertension 42834747 I10 bp initially soft in hospital, lisinopril was held, now resolved and resumedcon tlisinopri l 5 mg po dailymetop rolol 50 mg po q 12 hoursmonit or Amputated below knee 299 178133 Z89.519 right below knee amputation , continues to heal well.galindo nue tylenol and lyricafu with vascular as planned Peripheral vascular disease 171256181 I73.9 eliquis on holdcontin ueasa, plavixlyri ca 150 mg qdmonitor Pressure i njury of coccygeal region of back stage II 7687202479 5051749 L89.152 healing denuded skin to right coccyx11/11 apply barrier cream topically bid and prnfrequen t brief changes and reposition ingmonitor for infection Vascular dementia 968191 004 F01.54 stablediff iculty to recall thoughts and respond to questions at baseline per staffmood stablecont inue supportive caremonito r for decline. [id number] MIRI NORTON [address] [address] 11/17/2023 14:04:30 11/23/2023 09:14:45 Anxiety 97094341 F41.9 stableDulo xetine 20 mg dailyConti nue to monitorPsy ch following as well. Hypothyroidism 97016076 E03.9 adjusted in hospitalco nt levothyrox ine 200 mcg po dailyreche ck tsh in 8 weeksmonit or Essential hypertension 62783584 I10 stable-lis inopril 5 mg po dailymetop rolol 50 mg po q 12 hoursmonit or Amputated below knee 299 467010 Z89.519 right below knee amputation , continues to heal well.galindo nue tylenol and lyricafu with vascular as planned Peripheral vascular disease 949766455 I73.9 eliquis stoppedcon tinue:asa, plavixlyri ca 150 mg qdmonitor Vascular dementia 822579 [address] declinebas sahara difficulty with word findingmoo d stablecont inue supportive caremonito r for decline. Anemia 911800675 D64.9 continuefe rrous sulfate 325 mg dailycont. Vit D 1000u dailymonit or cbc and bmp weekly on mondays x 3 [id number] MIRI NORTON [address] [address] 11/21/2023 11:10:23 11/23/2023 10:20:09 Anxiety 15976984 F41.9 stableDulo xetine 20 mg dailyConti nue to monitorPsy ch following as well. Hypothyroidism 08695727 E03.9 adjusted in hospitalco nt levothyrox ine 200 mcg po dailyreche ck tsh in 8 weeksmonit or Essential hypertension 57919124 I10 stable-lis inopril 5 mg po dailymetop rolol 50 mg po q 12 hoursmonit or Amputated below knee 299 410882 Z89.519 right below knee amputation , continues to heal well.galindo nue tylenol and lyricafu with vascular as planned Peripheral vascular disease 890210368 I73.9 eliquis stoppedcon tinue:asa, plavixlyri ca 150 mg qdmonitor Vascular dementia 643075 [address] declinebas sahara difficulty with word findingmoo d stablecont inue supportive caremonito r for decline. Anemia 140379969 D64.9 continuefe rrous sulfate 325 mg dailycont. Vit D 1000u dailymonit or cbc and bmp weekly on mondays x 3 [id number] MIRI NORTON [address] [address] 11/29/2023 10:14:07 12/01/2023 14:32:41 Anxiety 70496892 F41.9 stablecont inue duloxetine 20 mg daily- she is having a positive response with med.Contin ue to monitorupd ate HDBH with concerns. Hypothyroidism 67768478 E03.9 adjusted in hospitalco nt levothyrox ine 200 mcg po dailyreche ck tsh in 8 weeks- ord for . 11/18monito r Essential hypertension 43269783 I10 continue lisinopril 5 mg po dailyconti nue metoprolol 50 mg po q 12 hoursmonit or Amputated below knee 299 677711 Z89.519 right below knee amputation , continues to heal well.galindo nue tylenol and lyricafu with vascular as planned Peripheral vascular disease 646854752 I73.9 eliquis stoppedcon tinue:asa, plavixlyri ca 150 mg qdmonitor Vascular dementia 812087 004 F01.54 expect declinebas sahara difficulty with word findingmoo d stablecont inue supportive caremonito r for decline. Anemia 418169475 D64.9 continuefe rrous sulfate 325 mg dailycont. Vit D 1000u dailymonit or cbc and bmp weekly on mondays x 39/3: H/H has been stable increasing every week. [id number] MIRI NORTON [address] [address] 12/01/2023 11:44:42 12/05/2023 13:22:49 Amputated below knee 521955985 Z89.519 right below knee amputation open wound noted on stump concerning for infection, yellowish drainage noted on dressing ,will send culture.co ntinue tylenol and lyricafu with vascular as planned Peripheral vascular disease 430811764 I73.9 eliquis stoppedcon tinue:asa, plavixlyri ca 150 mg qdmonitor Vascular dementia 053696 004 F01.54 expect declinebas sahara difficulty with word findingmoo d stablecont inue supportive caremonito r for decline. [id number] MIRI NORTON [address] [address] 12/05/2023 09:49:14 12/07/2023 10:15:18 Amputated below knee [id number] Z89.519 right below knee amputation wound culture pendingcon tinue tylenol and lyricafu with vascular as planned Peripheral vascular disease [id number] I73.9 eliquis stoppedcon tinue:asa, plavixlyri ca 150 mg qdmonitor Vascular dementia 129878 004 F01.54 expect declinebas sahara difficulty with word findingmoo d stablecont inue supportive caremonito r for decline. [id number] MIRI NORTON [address] [address] 12/12/2023 08:48:56 12/14/2023 08:51:51 Amputated below knee [id number] Z89.519 right below knee amputation continue tylenol and lyricafu with vascular as planned on 12/16/23 Peripheral vascular disease 427585198 I73.9 eliquis stoppedcon tinue:asa, plavixlyri ca 150 mg qdmonitor Vascular dementia 970880 004 F01.54 expect declinebas sahara difficulty with word findingmoo d stablecont inue supportive caremonito r for decline. Subconjunc tival hemorrhage of left eye [id number] 00217 H11.32 no pain or visual changesnur sing to update provider for changes in vision, pain or discharge. can apply warm compress for comfort if irritated. 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 Peripheral vascular disease 769209223 I73.9 12/15 carotid duplex shows 70 to 99% stenosis in her right ICA, this is s/p TCAR and she has a patent stent. Her left side shows 1 to 49% stenosis in the ICA with a patent stent.repe at duplex in 6 months eliquis stoppedcon tinue:asa, plavixlyri ca 150 mg qdmonitor Vascular dementia 142333 004 F01.54 expect declinebas sahara difficulty with word findingmoo d stablecont inue supportive caremonito r for decline. Subconjunc tival hemorrhage of left eye [id number] 01203 H11.32 resolvingn o pain or visual changesnur sing to update provider for changes in vision, pain or discharge. can apply warm compress for comfort if irritated. monitor for worsening sx, pt is on asa and plavix daily.H/H stable , will continue to monitor Insomnia 729582906 G47.0 0 see HPIstop melatonins tart trazodone 50 mg at HSmonitor for effectiven ess [id number] MIRI NORTON VINI JOSEY [address] [facility] [place] [address] 12/22/2023 11:08:23 12/23/2023 12:52:01 Amputated below knee 723998905 Z89.519 right below knee amputation continue tylenol [...] and promote wound healing. Peripheral vascular disease 684382804 I73.9 12/15 carotid duplex shows 70 to [...] plavixlyri ca 150 mg qdmonitor Vascular dementia 208051 004 F01.54 expect declinebas sahara difficulty with word findingmoo d stablecont inue supportive caremonito r for decline. Subconjunc tival hemorrhage of left eye [id number] 75606 H11.32 resolvingn o pain or visual changesnur sing to update provider for changes in vision, pain or discharge. can apply warm compress for comfort if irritated. monitor for worsening sx, pt is on asa and plavix daily.H/H stable , will continue to monitor Insomnia 545765950 G47.0 0 continue trazodone 50 mg at HS- will reassess at next visit.prakash cat for effectiven essdiscuss ed with patient avoiding caffeine drinks before bed, antidepres nuria and BP meds can causes insomnia. we discussed trying relaxation techniques such as deep breathing and guided imagery. [id number] MIRI NORTON 36 [facility] [place] [address] 12/27/2023 14:42:28 12/28/2023 11:41:01 Amputated below knee 163921844 Z89.519 right below knee amputation continue tylenol [...] and promote wound healing. Peripheral vascular disease 798190377 I73.9 12/15 carotid duplex shows 70 to [...] plavixlyri ca 150 mg qdmonitor Vascular dementia 047055 004 F01.54 expect declinebas sahara difficulty with word findingmoo d stablecont inue supportive caremonito r for decline. Subconjunc tival hemorrhage of left eye [id number] 23437 H11.32 resolvingn o pain or visual changesnur sing to update provider for changes in vision, pain or discharge. can apply warm compress for comfort if irritated. monitor for worsening sx, pt is on asa and plavix daily.H/H stable , will continue to monitor Insomnia 949303104 G47.0 0 continue trazodone 50 mg at HS- will reassess at next visit.prakash cat for effectiven essdiscuss ed with patient avoiding caffeine drinks before bed, antidepres nuria and BP meds can causes insomnia. we discussed trying relaxation techniques such as deep breathing and guided imagery. [id number] MIRI NORTON [address] [place] [address] 01/02/2024 08:33:03 01/03/2024 11:47:07 Amputated below knee [id number] Z89.519 followed closely by vascular.r ight below [...] and promote wound healing. Peripheral vascular disease 112372521 I73.9 12/15 carotid duplex shows 70 to [...] plavixlyri ca 150 mg qdmonitor Vascular dementia 572369 [address] declinebas sahara difficulty with word findingmoo d stablecont inue supportive caremonito r for decline. Subconjunc tival hemorrhage of left eye [id number] 95702 H11.32 resolvingn o pain or visual changesnur sing to update provider for changes in vision, pain or discharge. can apply warm compress for comfort if irritated. monitor for worsening sx, pt is on asa and plavix daily.H/H stable , will continue to monitor Insomnia 933279853 G47.0 0 continue trazodone 50 mg at [...] Member ID Guarantor Name 12/28/2023 2 [place] [facility] Marixa Chan [id number] Marixa Chan 12/27/2023 1 MEDICARE [place]: [employer] Marixa Chan [id number] Marixa Chan Notes Date Note Type Note [...] acute rounding visit MIRI NORTON [address] [facility], [facility] [address], [place], [address], [employer] 12/12/2023 14:39:04 12/19/2023 text/html ROS as noted [...] television all night. MIRI NORTON [address] [facility], [address], [place], [address], [employer] 12/20/2023 15:35:55 12/22/2023 text/html ROS as noted [...] have a stump strinker. MIRI NORTON 38 [facility] [address], [place], [address], [facility] [employer] 12/22/2023 16:22:53 12/27/2023 text/html ROS as noted [...] not have a stump strinker. MIRI NORTON [address] [place] [address] [address], [place], [address], [facility] [employer] 12/27/2023 15:20:31 01/02/2024 text/html ROS as noted [...] a stump strinker. MIRI NORTON 38 [facility], [facility] [address], [place], [address], [facility] 01/02/2024 13:22:00 OBGyn Episode No OBEpisode recorded.
--- OUTSIDE RECORDS SUMMARY | 2025-01-28 05:56 | XMS_ITS | Encounter Summary ---
Author Organization [facility] Address [address] [place] [address] Care Team Providers Care Boom Operator Name Role Phone Ekta Petersen DO Primary Care Pro vider Unavailable [facility], Pcp Primary Care Provider Unavailabl e Encounter Details Date Type Department Care Team Description 07/17/2014 Pt. Non Urgent Medic al Question Adult Medicine [address] [address] Ekta Petersen DO Social History Tobacco Use Types Packs/Day Years Used Date Smoking Tobacco: Never Smokeless Tobacco: Never Alcohol Use Standard Drinks/Week Comments Yes 0 (1 standard drink = 0.6 oz pur e alcohol) occ Sex Assigned at Date Recorded Not on file documented as of this encounter Progress Notes * Brooklynn Mcclendon M.A. - 07/17/2014 1:16 PM EDTFrom: Marixa Chan To: Ekta Cano DO Sent: 07/17/2014 1:15 PM EDT Subject: Prescriptions at [facility] RE: Juan Miguel, [address] [facility], phone [phone] There are 3 medications that I take which are available at [facility] for $10 for a 90 day supply, this is a great savings to me. Would you please provide new 90 day prescriptions for Levothyroxine 200 mcg, Metoprolol Tartrate 50 mg, and Metformin. Any questions, please call me at work [phone]. Thank you! Marixa Chan documented in this encounter Plan of Treatment Not on file documented as of this encounter Visit Diagnoses Not on filedocumented in this encounter Care Teams Boom Operator Relationship Specialty Start Date End Date Ekta Petersen DO PCP - General Internal Medicine 10/16/13 05/11/18 [facility], Pcp PCP - General Internal Medicine 05/12/18 documented as of this encounter
--- OUTSIDE RECORDS SUMMARY | 2025-01-28 05:56 | XMS_ITS | Encounter Summary ---
Author Organization [facility] Address [address] [place] [address] Care Team Providers Care Quality Internship Name Role Phone Ekta Petersen DO Primary Care Pro vider Unavailable [facility], Pcp Primary Care Provider Unavailabl e Encounter Details Date Type Department Care Team Description 11/13/2013 Transfer Records Medical Records [address] [place] [address] Abstract, Provider Social History Tobacco Use Types [...] on filedocumented in this encounter Care Teams Quality Internship Relationship Specialty Start Date End Date Ekta Petersen DO PCP - General Internal Medicine 10/16/13 05/11/18 Pending Sale To [facility], Pcp PCP - General Internal Medicine 05/12/18 documented as of this encounter
--- OUTSIDE RECORDS SUMMARY | 2025-01-28 05:56 | XMS_ITS | Encounter Summary ---
Author Organization [facility] Address [address] [place] [address] Phone Care Team Providers Care Cosmetic Sales Advisor Name Role Phone Agueda Ann MD Primary Care Provider [phone] Andie Rossi MD Unavailable West Doll MD Unavailable [phone] Britany Coles MD Unavailable [phone] Naun Hoang MD Unavailable + Agueda Ann MD Unavailable Latosha Garcia OT Unavailable [phone] Latosha Garcia OT Unavailable [phone] Mely Bhatti RN Unavailable [email or web address] Encounter Details Date Type Department Care Team (Late st Contact Info) Description 11/04/2022 Procedure Pass [facility] [address] [place] [address] Social History Tobacco Use Types Packs/Day Years [...] high school, GED, job training, learning the Nepali language, technical skills, or developing parenting skills)? [...] 11/04/2022 1:06 AM Lucita Hirsch, NICOLE * [place] Suicide Severity Rating Scale (Screener/Recent Self-Report) Question [...] documented as of this encounter Care Teams Cosmetic Sales Advisor Relationship Specialty Start Date End Date Agueda Ann MD [address] [address] [email or web address] PCP - General Family Medicine 02/01/19 Andie Rossi MD [address] [place] [address] Neurology 03/02/19 West Doll MD [address] [place] [address] [address] [place] [address] Cardiology 03/02/19 Britany Coles MD [address] [place] [address] [address] [place] [id number] [email or web address] 03/02/19 Naun Hoang MD [address] [place] [address] Infectious Diseases 03/02/19 Agueda Ann MD [address] [address] [email or web address] Insurance Assigned Provider 07/02/23 04/02/24 Latosha Garcia, OT [address] [place] [address] [email or web address] [employer] Accounts Payable AccountantHeadliner Installer Therapy 11/05/22 11/07/22 Latosha Garcia, OT [address] [place] [address] [email or web address] [employer] Accounts Payable AccountantHeadliner Installer Therapy 11/24/22 11/25/22 Mely Bhatti RN [address] [place] [address] [email or web address] Payable Accountant 05/12/23 06/09/23 documented as of this encounter Additional Source Comments The information contained in this document represents components of the legal health record. It is not the complete legal health record.[facility]
--- OUTSIDE RECORDS SUMMARY | 2025-01-28 05:56 | XMS_ITS | Encounter Summary ---
Author Organization [facility] Address [address] [place] [address] Care Team Providers Care Soda Fountain Manager Name Role Phone Ekta Petersen DO Primary Care Pro vider Unavailable [facility], Pcp Primary Care Provider Unavailabl e Encounter Details Date Type Department Care Team Description 03/17/2015 Telephone Adult Medicine [address] [address] Ekta Petersen DO Social History Tobacco Use Types Packs/Day Years Used Date Smoking Tobacco: Former Smokeless Tobacco: Never Comments:on and off for coup le of years,quit years ago Alcohol Use Standard Drinks/Week Comments Yes 0 (1 standard drink = 0.6 oz pur e alcohol) rare Sex Assigned at Date Recorded Not on file documented as of this encounter Miscellaneous Notes * Telephone Encounter - Gogo Harding - 03/19/2015 9:04 AM EST Pt is calling back. * Telephone Encounter - Janeen Parks M.A. - 03/17/2015 4:07 PM EST Message left asking pt to call our office back [phone] when opt calls back advise her of med dose change, lab resutls & need to sid labs afte rnew dose 6-8 weeks documented in this encounter Plan of Treatment Not on file documented as of this encounter Visit Diagnoses Not on filedocumented in this encounter Care Teams Soda Fountain Manager Relationship Specialty Start Date End Date Ekta Petersen DO PCP - General Internal Medicine 10/16/13 05/11/18 [facility], Pcp PCP - General Internal Medicine 05/12/18 documented as of this encounter
--- OUTSIDE RECORDS SUMMARY | 2025-01-28 05:56 | XMS_ITS | Encounter Summary ---
Author Organization [facility] Address [address] [place] [address] Care Team Providers Care Lift Slab Operator Name Role Phone Ekta Petersen DO Primary Care Pro vider Unavailable [facility], Pcp Primary Care Provider Unavailabl e Encounter Details Date Type Department Care Team Description 04/23/2014 Pt. Non Urgent Medic al Question Adult Medicine [address] [address] Ekta Petersen DO Social History Tobacco Use Types Packs/Day Years Used Date Smoking Tobacco: Never Smokeless Tobacco: Never Alcohol Use Standard Drinks/Week Comments Yes 0 (1 standard drink = 0.6 oz pur e alcohol) occ Sex Assigned at Date Recorded Not on file documented as of this encounter Progress Notes * Brooklynn Mcclendon M.A. - 04/24/2014 4:24 PM ESTFrom: Marixa Chan To: Ekta Cano DO Sent: 04/23/2014 8:33 PM EST Subject: Glucose Meter Hi Dr. Cornejo, Would you please check around again to see if you can get me a glucose meter. [employer] did not cover one for me; they will cover the strips and lancets but not the meter. My health insurance ends on April 27, 2014 so I am trying to get refills on prescriptions now while I can. Thank You! Marixa Chan Phone at work: [phone] (Loyal) documented in this encounter Plan of Treatment Not on file documented as of this encounter Visit Diagnoses Not on filedocumented in this encounter Care Teams Lift Slab Operator Relationship Specialty Start Date End Date Ekta Petersen DO PCP - General Internal Medicine 10/16/13 05/11/18 [facility], Pcp PCP - General Internal Medicine 05/12/18 documented as of this encounter
--- OUTSIDE RECORDS SUMMARY | 2025-01-28 05:56 | XMS_ITS | Encounter Summary ---
Author Organization [employer] Address [address] [facility] 7t [place] [address] Care Team Providers Care Fountain Attendant Name Role Phone Unavailable Primary Care Provider Unavailabl e Encounter Details Date Type Department Care Team (Latest Contact Info) Description 06/29/2021 Abstract [facility] CONVERSIONS Dental, Provider, DDS Social History Tobacco [...]
--- OUTSIDE RECORDS SUMMARY | 2025-01-28 05:56 | XMS_ITS | Encounter Summary ---
Author Organization [facility] Address [address] [place] [address] Care Team Providers Care Horticultural Specialty Grower Inside Name Role Phone Ekta Petersen DO Primary Care Pro vider Unavailable [facility], Pcp Primary Care Provider Unavailabl e Encounter Details Date Type Department Care Team Description 11/14/2015 Weather Analyst Report Medical Records [address] [place] [address] Bisi Trevizo MD Social History Tobacco Use Types Packs/Day Years [...] on filedocumented in this encounter Care Teams Horticultural Specialty Grower Inside Relationship Specialty Start Date End Date Ekta Petersen DO PCP - General Internal Medicine 10/16/13 05/11/18 [facility], Pcp PCP - General Internal Medicine 05/12/18 documented as of this encounter
--- OUTSIDE RECORDS SUMMARY | 2025-01-28 05:56 | XMS_ITS | Encounter Summary ---
Author Organization [employer] Address [address] [facility] [address] 7t [place] [address] Care Team Providers Care Coke Production Heater Name Role Phone Unavailable Primary Care Provider Unavailabl e Reason for Visit * Reason Onset Date Comments medical clearance 05/27/2022 Encounter Details Date Type Department Care Team (Late st Contact Info) Description 05/27/2022 Telephone [facility] [address] [place] [address] Davonte Cunningham DDS medical clearance Social History [...] was for medical clearance. Pls re send [phone] * Telephone Encounter - Lucina Leigh - [...] was for medical clearance. Pls re send [phone] documented in this encounter Plan of Treatment Not on file documented as of this encounter Visit Diagnoses Not on filedocumented in this encounter
--- OUTSIDE RECORDS SUMMARY | 2025-01-28 05:56 | XMS_ITS | Encounter Summary ---
Author Organization [facility] Address [address] [place] [address] Care Team Providers Care Tube And Rod Straightener Name Role Phone Ekta Petersen DO Primary Care Pro vider Unavailable [facility], Pcp Primary Care Provider Unavailabl e Encounter Details Date Type Department Care Team Description 01/09/2016 Release of Information Medical Records [address] [place] [address] Abstract, Provider Social History Tobacco Use Types [...] on filedocumented in this encounter Care Teams Tube And Rod Straightener Relationship Specialty Start Date End Date Ekta Petersen DO PCP - General Internal Medicine 10/16/13 05/11/18 [facility], Pcp PCP - General Internal Medicine 05/12/18 documented as of this encounter
--- OUTSIDE RECORDS SUMMARY | 2025-01-28 05:56 | XMS_ITS | Encounter Summary ---
Author Organization [facility] Address [address] [place] [address] Care Team Providers Care Inspector Floor Name Role Phone Ekta Petersen DO Primary Care Pro vider Unavailable [facility], Pcp Primary Care Provider Unavailabl e Encounter Details Date Type Department Care Team Description 01/14/2014 Cashier Assistant Report Medical Records [address] [place] [address] Olivier Michael MD Social History Tobacco Use Types Packs/Day [...] on filedocumented in this encounter Care Teams Inspector Floor Relationship Specialty Start Date End Date Ekta Petersen DO PCP - General Internal Medicine 10/16/13 05/11/18 [facility], Pcp PCP - General Internal Medicine 05/12/18 documented as of this encounter
--- OUTSIDE RECORDS SUMMARY | 2025-01-28 05:56 | XMS_ITS | Clinical Summary ---
Author Organization [facility] Address [address] [place] [address] Care Team Providers Care Catering Cook Name Role Phone Unavailable Primary Care Provider [...]
--- OUTSIDE RECORDS SUMMARY | 2025-01-28 05:56 | XMS_ITS | Clinical Summary ---
Author Organization [employer] Address [address] [facility] 7t [place] [address] Care Team Providers Care Service Unit Operator Oil Well Name Role Phone Unavailable Primary Care Provider [...] Most Recently Relevant to Health Maintenance Insurance [facility] MEDICAID STAND ADULT
--- OUTSIDE RECORDS SUMMARY | 2025-01-28 05:56 | XMS_ITS | Encounter Summary ---
Author Organization [facility] Address [address] [place] [address] Care Team Providers Care Multimedia Production Assistant Name Role Phone Ekta Petersen DO Primary Care Pro vider Unavailable [facility], Pcp Primary Care Provider Unavailabl e Encounter Details Date Type Department Care Team Description 12/20/2013 Folding Machine Setter Report Medical Records [address] [place] [address] Olivier Michael MD Social History Tobacco Use [...] on filedocumented in this encounter Care Teams Multimedia Production Assistant Relationship Specialty Start Date End Date kEta Petersen DO PCP - General Internal Medicine 10/16/13 05/11/18 [facility], Pcp PCP - General Internal Medicine 05/12/18 documented as of this encounter
--- OUTSIDE RECORDS SUMMARY | 2025-01-28 05:56 | XMS_ITS | Encounter Summary ---
Author Organization [facility] Address [address] [place] [address] Care Team Providers Care Director Of Instructional Technology Name Role Phone Ekta Petersen DO Primary Care Pro vider Unavailable [facility], Pcp Primary Care Provider Unavailabl e Encounter Details Date Type Department Care Team Description 05/23/2015 Stringed Instrument Repairer Report Medical Records [address] [place] [address] Og Shen MD Social History Tobacco Use Types Packs/Day [...] filedocumented in this encounter Care Teams Director Of Instructional Technology Relationship Specialty Start Date End Date Ekta Petersen DO PCP - General Internal Medicine 10/16/13 05/11/18 [facility], Pcp PCP - General Internal Medicine 05/12/18 documented as of this encounter
--- OUTSIDE RECORDS SUMMARY | 2025-01-28 05:57 | XMS_ITS | Encounter Summary ---
Author Organization [facility] Address [address] [place] [address] Phone Care Team Providers Care Finance Admin Name Role Phone Agueda Ann MD Primary Care Provider [phone] Andie Rossi MD Unavailable West Doll MD Unavailable [phone] Britany Coles MD Unavailable Naun Hoang MD Unavailable + Agueda Ann MD Unavailable Mely Bhatti RN Unavailable [email or web address] Encounter Details Date Type Department Care Team (Late st Contact Info) Description 12/24/2022 Procedure Pass [facility], Ct Scan - [facility] [address] [place] [address] Social History Tobacco Use Types Packs/Day Years [...] high school, GED, job training, learning the [place] language, technical skills, or developing parenting skills)? [...] 9:29 AM ALEKT Natalya Delgadillo RN * [place] Suicide Severity Rating Scale (Screener/Recent Self-Report) Question [...] documented as of this encounter Care Teams Finance Admin Relationship Specialty Start Date End Date Agueda Ann MD [address] [address] [email or web address] PCP - General Family Medicine 02/01/19 Andie Rossi MD [address] [place] [address] Neurology 03/02/19 West Doll MD [address] [place] [address] [address] [place] [address] Cardiology 03/02/19 Britany Coles MD [address] [place] [address] 140 [place] [id number] Orthopedic Surgery 03/02/19 Naun Hoang MD [address] [place] [address] Infectious Diseases 03/02/19 Agueda Ann MD [address] [address] [email or web address] Insurance Assigned Provider 07/02/23 04/02/24 Mely Bhatti, NICOLE [address] [address] [email or web address] 05/12/23 06/09/23 documented as of this encounter Additional Source Comments The information contained in this document represents components of the legal health record. It is not the complete legal health record.[facility]
--- OUTSIDE RECORDS SUMMARY | 2025-01-28 05:57 | XMS_ITS | Encounter Summary ---
Author Organization [facility] Address [address] [place] [address] Phone Care Team Providers Care Geoint Analyst Name Role Phone Agueda Ann MD Primary Care Provider [phone] Andie Rossi MD Unavailable West Doll MD Unavailable [phone] Britany Coles MD Unavailable Naun Hoang MD Unavailable + Agueda Ann MD Unavailable Mely Bhatti RN Unavailable [email or web address] Encounter Details Date Type Department Care Team (Late st Contact Info) Description 12/24/2022 Procedure Pass [facility], [facility] 30 [place] [address] Social History Tobacco Use Types Packs/Day Years [...] 12/24/2022 9:29 AM Natalya Menon, NICOLE * [place] Suicide Severity Rating Scale (Screener/Recent Self-Report) Question [...] documented as of this encounter Care Teams Geoint Analyst Relationship Specialty Start Date End Date Agueda Ann MD [address] [address] [email or web address] PCP - General Family Medicine 02/01/19 Andie Rossi MD [address] [place] [address] Neurology 03/02/19 West Doll MD [address] [place] [address] 104 [place] [address] Cardiology 03/02/19 Britany Coles MD [address] [place] [address] 140 [place] [phone] [email or web address] Orthopedic Surgery 03/02/19 Naun Hoang MD [address] [place] [address] Infectious Diseases 03/02/19 Agueda Ann MD [address] [address] [email or web address] Insurance Assigned Provider 4/6/24 1/6/25 Mely Bhatti, RN [address] [place] [address] [email or web address] 05/12/23 06/09/23 documented as of this encounter Additional Source Comments The information contained in this document represents components of the legal health record. It is not the complete legal health record.[facility]
--- OUTSIDE RECORDS SUMMARY | 2025-01-28 05:57 | XMS_ITS | Encounter Summary ---
Author Organization [facility] Address [address] [place] [address] Phone Care Team Providers Care Distance Learning Administrator Name Role Phone Agueda Ann MD Primary Care Provider [phone] Andie Rossi MD Unavailable West Doll MD Unavailable Britany Coles MD Unavailable [phone] Naun Hoang MD Unavailable + Agueda Ann MD Unavailable Mely Bhatti RN Unavailable [email or web address] Encounter Details Date Type Department Care Team (Late st Contact Info) Description 12/24/2022 Procedure Pass [facility] [place] 30 [place] [address] Social History Tobacco Use Types Packs/Day Years [...] 12/24/2022 9:29 AM Natalya Menon, NICOLE * [place] Suicide Severity Rating Scale (Screener/Recent Self-Report) Question [...] documented as of this encounter Care Teams Distance Learning Administrator Relationship Specialty Start Date End Date Agueda Ann MD [address] [address] [email or web address] PCP - General Family Medicine 02/01/19 Andie Rossi MD [address] [place] [address] Neurology 03/02/19 West Doll MD [address] [place] [address] 104 [place] [address] Cardiology 03/02/19 Britany Coles MD [address] [place] [address] 140 [place] [phone] [email or web address] 03/02/19 Naun Hoang MD [address] [place] [address] Infectious Diseases 03/02/19 Agueda Ann MD [address] [address] [email or web address] Insurance Assigned Provider 4/6/24 1/6/25 Mely Bhatti, RN [address] [place] [address] [email or web address] 05/12/23 06/09/23 documented as of this encounter Additional Source Comments The information contained in this document represents components of the legal health record. It is not the complete legal health record.[facility]
--- OUTSIDE RECORDS SUMMARY | 2025-01-28 05:57 | XMS_ITS | Encounter Summary ---
Author Organization [facility] Address [address] [place] [address] Phone Care Team Providers Care Sill Worker Name Role Phone Agueda Ann MD Primary Care Provider [phone] Andie Rossi MD Unavailable [phone] West Doll MD Unavailable [phone] Britany Coles MD Unavailable [phone] Naun Hoang MD Unavailable + Agueda Ann MD Unavailable Mely Bhatti RN Unavailable [email or web address] Encounter Details Date Type Department Care Team (Late st Contact Info) Description 12/25/2022 Procedure Pass [facility] [address] [place] [address] Social History Tobacco Use Types Packs/Day Years [...] documented as of this encounter Care Teams Sill Worker Relationship Specialty Start Date End Date Agueda Ann MD [address] [place] [address] [email or web address] PCP - General Family Medicine 02/01/19 Andie Rossi MD 48 [place] [address] Neurology 03/02/19 West Doll MD [address] [place] [address] 104 [place] [address] Cardiology 03/02/19 Britany Coles MD [address] [place] [address] 140 [place] [phone] [email or web address] Orthopedic Surgery 03/02/19 [place] [address] [place] [address] Infectious Diseases 03/02/19 Agueda Ann MD [address] [address] [email or web address] Insurance Assigned Provider 07/02/23 04/02/24 Mely Bhatti RN [address] [address] [email or web address] PHCM Photovoltaic Fabrication Technician 05/12/23 06/09/23 documented as of this encounter Additional Source Comments The information contained in this document represents components of the legal health record. It is not the complete legal health record.[facility]
--- OUTSIDE RECORDS SUMMARY | 2025-01-28 05:57 | XMS_ITS | Encounter Summary ---
Author Organization [facility] Address [address] [place] [address] Phone Care Team Providers Care Pre Press Proofer Name Role Phone Agueda Ann MD Primary Care Provider [phone] Andie Rossi MD Unavailable [phone] West Doll MD Unavailable Britany Coles MD Unavailable [phone] Naun Hoang MD Unavailable + Agueda Ann MD Unavailable Mely Bhatti RN Unavailable [email or web address] Encounter Details Date Type Department Care Team (Late st Contact Info) Description 12/25/2022 Procedure Pass Non-Invasive Cardiology 30 [place] [address] Social History Tobacco Use Types Packs/Day Years [...] high school, GED, job training, learning the Chadian language, technical skills, or developing parenting skills)? [...] documented as of this encounter Care Teams Pre Press Proofer Relationship Specialty Start Date End Date Agueda Ann MD [address] [place] [address] [email or web address] PCP - General Family Medicine 02/01/19 Andie Rossi MD 48 [place] [address] Neurology 03/02/19 West Doll MD [address] [place] [address] 104 [place] [address] Cardiology 03/02/19 Britany Coles MD [address] [place] [address] 140 [place] [phone] [email or web address] Orthopedic Surgery 03/02/19 [place] [address] [place] [address] Infectious Diseases 03/02/19 Agueda Ann MD [address] [address] [email or web address] Insurance Assigned Provider 07/02/23 04/02/24 Mely Bhatti RN [address] [address] [email or web address] PHCM Inventory Control Associate 05/12/23 06/09/23 documented as of this encounter Additional Source Comments The information contained in this document represents components of the legal health record. It is not the complete legal health record.[facility]
--- OUTSIDE RECORDS SUMMARY | 2025-01-28 05:57 | XMS_ITS | Encounter Summary ---
Author Organization [facility] Address [address] [place] [address] Phone Care Team Providers Care Laboratory Mechanical Technician Name Role Phone Agueda Ann MD Primary Care Provider [phone] Andie Rossi MD Unavailable [phone] West Doll MD Unavailable [phone] Britany Coles MD Unavailable [phone] Naun Hoang MD Unavailable + Agueda Ann MD Unavailable Mely Bhatti RN Unavailable [email or web address] Encounter Details Date Type Department Care Team (Late st Contact Info) Description 12/24/2022 Procedure Pass [facility], [facility] 30 [place] [address] Social History Tobacco Use Types Packs/Day Years [...] 9:29 AM ALEKT Natalya Delgadillo RN * [place] Suicide Severity Rating Scale (Screener/Recent Self-Report) Question [...] documented as of this encounter Care Teams Laboratory Mechanical Technician Relationship Specialty Start Date End Date Agueda Ann MD [address] [address] [email or web address] PCP - General Family Medicine 02/01/19 Andie Rossi MD [address] [place] [address] Neurology 03/02/19 West Doll MD [address] [place] [address] 104 [place] [address] Cardiology 03/02/19 Britany Coles MD [address] [place] [address] 140 [place] [phone] [email or web address] Orthopedic Surgery 03/02/19 Naun Hoang MD [address] [place] [address] Infectious Diseases 03/02/19 Agueda Ann MD [address] [address] [email or web address] Insurance Assigned Provider 07/02/23 04/02/24 Mely Bhatti, NICOLE [address] [address] [email or web address] 05/12/23 06/09/23 documented as of this encounter Additional Source Comments The information contained in this document represents components of the legal health record. It is not the complete legal health record.[facility]
--- OUTSIDE RECORDS SUMMARY | 2025-01-28 05:57 | XMS_ITS | Clinical Summary ---
Author Organization [facility] Address [email or web address] [place] [address] Phone Care Team Providers Care Silk Winding Machine Operator Name Role Phone Agueda Ann MD Primary Care Provider [phone] Andie Rossi MD Unavailable [phone] West Doll MD Unavailable [phone] Britany Coles MD Unavailable Naun Hoang MD [...] mouth daily. 4 Active neomycin/bacitra negrito/polymyxinB (NEOSPORIN, [id number], TP) Apply 1 Application topically 2 (two) [...] 20 MG tabletIndication s:Coronary artery disease involving [place] heart without angina pectoris, unspecified vessel or [...] an echo, and follow-up with her own wood cut engraver who is at [facility]. Acquired hypothyroidism 09/04/2020 Assessment & Plan (12/26/2022 [...] like to little and she is established [facility] weight management so I like her to see the radar engineering teacher there she understands and agrees this plan Assessment & Plan (05/17/2019 12:35 PM EST): She is working out, tracking her caloric intake and sticking to nutrition plan although she is under eating. No clear etiology for her weight gain. Start taking levothyroxine separately from the other medications. Check labs today. Make follow-up with radar engineering teacher CAD (coronary artery disease) 03/02/2019 Overview (03/02/2019): h/o stent Assessment & Plan (12/26/2022 3:02 PM EDT): No active cp or acute concern -Continue etl informatica architect -Continue aspirin, atorvastatin, Plavix, and Zetia Is [...] and chronic pain. Certainly would benefit from THEATRE PROGRAM DIRECTOR services and I have discussed with pt [...] pt can establish with someone new at [facility]. Assessment & Plan (01/21/2021 12:34 PM [...] and gait. She will be going to [facility] physical medicine and rehabilitation in [place] for this. IgG monoclonal gammopathy Assessment & Plan (03/02/2019 12:15 PM EST): Patient denies ever seeing hematology, has never heard this diagnosis and does not think that she has this. As I do not have records it is difficult for me to understand where this came from. I would like to review her [facility] records and if necessary we will [...] appt for Neuro muscular in Dec at [facility] No further pain. F/u as needed [...] this topic Medical Devices Implanted Type Area Salesperson Burial Plots Device Identifier Shelf Expiration Date Model / Serial / Lot Stent Supera 6fr 5.5mm 120mm 120cm .014in Otw Vascular Peripheral Nitinol Self Expanding Closed End Braided - [id number] Implanted:Qty: 1 on 11/18/2022 by David Mendez MD at [facility] Stent zkipster 04/27/2024 [id number] / / [id number] Cardiac Stent Neck Hardware Procedures Procedure Name Priority Date/Time Associated Diagnosis Comments COLONOSCOPY FOR RESULT ENTRY ONLY Routine 11/10/2023 10:14 AM EDT BASIC METABOLIC PANEL (BMP) STAT 05/23/2023 4:12 PM EST TSH WITH [...] EST) SODIUM 137 133 - 146 mmol/L [facility] CHLORIDE 101 96 - 108 mmol/L [facility] POTASSIUM 4.1 3.3 - 5.1 mmol/L [facility] CO2 24 21 - 35 mmol/L [facility] BUN 27(H) 6 - 19 mg/dL [facility] CREATININE 0.50 0.5 - 1.5 mg/dL [facility] GLUCOSE 103(H) 70 - 99 mg/dL [facility] CALCIUM 9.0 8.4 - 10.3 mg/dL [facility] EGFR 103 >59 mL/min/1.7 3m2 [facility] Comment:Estimated glomerular filtration rate calculated using the CKD-EPI refit equation. ANION GAP 16 10 - 20 mmol/L [facility] Blood 05/23/2023 4:12 PM EST 05/23/2023 4:32 PM EST Mely Padron PA-C LAB BLOOD BKR ORDERABLES Fin al Result Performing Organization Address City/[facility]/ZIP Co de Phone Number [address] [phone] * (ABNORMAL) TSH with reflex (01/13/2023 7:58 AM EDT) TSH 0.03(L) 0.27 - 4.20 uIU/mL [facility] Blood 01/13/2023 7:58 AM EDT 01/13/2023 8:03 AM EDT Agueda Ann MD LAB BLOOD BKR ORDERABLES Final R esult Performing Organization Address City/[facility]/ZIP Co de Phone Number [address] [address] * (ABNORMAL) Lipid panel (12/25/2022 5:22 AM EDT) HDL 46 mg/dL [facility] Comment: Interpretation <40 mg/dL: Low HDL cholesterol (major risk factor for CHD) Greater than or equal to 60 mg/dL: High HDL cholesterol ( negative risk factor for CHD) HDL - cholesterol is affected by a number of factors, e.g. smoking, excerise, hormones, sex and age. CHOLESTEROL 98 0 - 240 mg/dL [facility] TRIGLYCERIDES 86 30 - 160 mg/dL [facility] LDL 35(L) 50 - 129 mg/dL [facility] Comment: LDL levels in terms of risk for coronary heart disease: <100 mg/dL: Optimal 100-129 mg/dL: Near or above optimal 130-159 mg/dL: Borderline high 160-189 mg/dL: High >190 mg/dL: Very High CARDIAC RISK RATIO 2.1(L) 3.3 - 4.4 C [facility] Blood 12/25/2022 5:22 AM EDT 12/25/2022 6:22 AM EDT us Kayley Ribera SYSTEM OPERATOR LAB BLOOD BKR ORDERABLE S Final Result [facility] 30 [place] [address] * MAMMOGRAPHY FOR RESULT ENTRY ONLY (07/07/2022) us Agueda Ann MD HEALTH MAINTENANCE Edited Result - Final from Last 3 Months or Most Recently Relevant to Health Maintenance Insurance [place]IC[place] & [facility] [place] & B [facility] Advance Directives For more information, please contact: [phone] (9AM - 5PM [facility], Tuesday-Tuesday) Documents on File Type Date Recorded Patient Car Checker Expl anation Healthcare Proxy 11/08/2022 6:36 PM [...] Code Status Confirmed With: Patient Care Teams Silk Winding Machine Operator Relationship Specialty Start Date End Date Agueda Ann MD [address] [place] [address] PCP - General Family Medicine 02/01/19 Andie Rossi MD 48 [place] [address] Neurology 03/02/19 West Doll MD [address] [place] [address] 104 [place] [address] Cardiology 03/02/19 Britany Coles MD [address] [place] [address] 140 [place] [address] [email or web address] Orthopedic Surgery 03/02/19 Naun Hoang MD [address] [address] Infectious Diseases 03/02/19 Additional Source Comments The information contained in this document represents components of the legal health record. It is not the complete legal health record.[facility]
--- OUTSIDE RECORDS SUMMARY | 2025-01-28 05:57 | XMS_ITS | Encounter Summary ---
Author Organization [facility] Address [address] [place] [address] Phone Care Team Providers Care Hotel Concierge Name Role Phone Agueda Ann MD Primary Care Provider [phone] Andie Rossi MD Unavailable [phone] West Doll MD Unavailable [phone] Britany Coles MD Unavailable Naun Hoang MD Unavailable + Agueda Ann MD Unavailable Latosha Garcia OT Unavailable [phone] Latosha Garcia OT Unavailable [phone] Mely Bhatti RN Unavailable [email or web address] Encounter Details Date Type Department Care Team (Late st Contact Info) Description 10/04/2019 Ancillary Orders [facility],Outside Imaging 30 [place] [address] System, Provider Not In, PhD Partners [address] [address] Social History Tobacco Use Types Packs/Day Years [...] documented as of this encounter Care Teams Hotel Concierge Relationship Specialty Start Date End Date Agueda Ann MD [address] [address] PCP - General Family Medicine 02/01/19 Andie Rossi MD 48 [place] [address] Neurology 03/02/19 West Doll MD [address] [place] [address] 104 [place] [address] Cardiology 03/02/19 Britany Coles MD [address] [place] [address] 140 [place] [phone] [email or web address] Orthopedic Surgery 03/02/19 [place] [address] [place] [address] Infectious Diseases 03/02/19 Agueda Ann MD [address] [address] [email or web address] Insurance Assigned Provider 07/02/23 04/02/24 Latosha Garcia, OT 30 [place] [address] [email or web address] Transitions Radiation OncologistStoker Installer Therapy 11/05/22 11/07/22 Latosha Garcia, OT 30 [place] [address] [email or web address] Transitions Radiation OncologistStoker Installer Therapy 11/24/22 11/25/22 Mely Bhatti, NICOLE 30 [place] [address] [email or web address] Radiation Oncologist 05/12/23 06/09/23 documented as of this encounter Additional Source Comments The information contained in this document represents components of the legal health record. It is not the complete legal health record.[facility]
--- OUTSIDE RECORDS SUMMARY | 2025-01-28 05:57 | XMS_ITS | Encounter Summary ---
Author Organization [facility] Address [address] [place] [address] Phone Care Team Providers Care Roll Threader Operator Name Role Phone Agueda Ann MD Primary Care Provider [phone] Andie Rossi MD Unavailable West Doll MD Unavailable [phone] Britany Coles MD Unavailable Naun Hoang MD Unavailable + Agueda Ann MD Unavailable Mely Bhatti RN Unavailable [email or web address] Encounter Details Date Type Department Care Team (Late st Contact Info) Description 12/24/2022 Procedure Pass [facility] 30 [place] [address] Social History Tobacco Use Types Packs/Day Years [...] high school, GED, job training, learning the Vietnamese language, technical skills, or developing parenting skills)? [...] 12/24/2022 9:29 AM Natalya [place], NICOLE * [place] Suicide Severity Rating Scale (Screener/Recent Self-Report) Question [...] documented as of this encounter Care Teams Roll Threader Operator Relationship Specialty Start Date End Date Agueda Ann MD [address] [address] PCP - General Family Medicine 02/01/19 Andie Rossi MD [address] [place] [address] Neurology 03/02/19 West Doll MD [address] [place] [address] 104 [place] [address] Cardiology 03/02/19 Britany Coles MD [address] [place] [address] 140 [place] [phone] [email or web address] [email or web address] Surgery 03/02/19 Naun Hoang MD [address] [place] [address] Infectious Diseases 03/02/19 Agueda Ann MD [address] [address] Insurance Assigned Provider 4/6/24 1/6/25 Mely Bhatti, RN [address] [place] [address] [email or web address] Lock Tender Chief Operator 05/12/23 06/09/23 documented as of this encounter Additional Source Comments The information contained in this document represents components of the legal health record. It is not the complete legal health record.[facility]
--- OUTSIDE RECORDS SUMMARY | 2025-01-28 05:57 | XMS_ITS | Encounter Summary ---
Author Organization [facility] Address [address] [place] [address] Phone Care Team Providers Care Human Resources Trainer Name Role Phone Agueda Ann MD Primary Care Provider [phone] Andie Rossi MD Unavailable West Doll MD Unavailable [phone] Britany Coles MD Unavailable Naun Hoang MD Unavailable + Agueda Ann MD Unavailable Latosha Garcia OT Unavailable [phone] Latosha Garcia OT Unavailable [phone] Mely Bhatti RN Unavailable [email or web address] Encounter Details Date Type Department Care Team (Late st Contact Info) Description 07/31/2021 Procedure Pass [facility] Endoscopy Admitting Dept Virtual Department 30 [place] [address] Social History Tobacco Use Types Packs/Day Years [...] high school, GED, job training, learning the Colombian language, technical skills, or developing parenting skills)? [...] documented as of this encounter Care Teams Human Resources Trainer Relationship Specialty Start Date End Date gAueda Ann MD [address] [place] [address] PCP - General Family Medicine 02/01/19 Andie Rossi MD [address] [place] [address] Neurology 03/02/19 West Doll MD [address] [place] [address] Cardiology 03/02/19 Britany Coles MD [address] [facility] [address] [place] [phone] [email or web address] [email or web address] Surgery 03/02/19 Naun Hoang MD 3300 [facility] [address] [place] [address] Infectious Diseases 03/02/19 Agueda Ann MD [address] [address] [email or web address] Insurance Assigned Provider 07/02/23 04/02/24 Latosha Garcia, OT 30 [place] [address] [email or web address] Transitions Tank Stave AssemblerAssisted Living Home Director Therapy 11/05/22 11/07/22 Latosha Garcia, OT 30 [place] [address] [email or web address] Transitions Tank Stave AssemblerAssisted Living Home Director Therapy 11/24/22 11/25/22 Mely Bhatti RN 30 [place] [address] [email or web address] Tank Stave Assembler 05/12/23 06/09/23 documented as of this encounter Additional Source Comments The information contained in this document represents components of the legal health record. It is not the complete legal health record.[facility]
--- OUTSIDE RECORDS SUMMARY | 2025-01-28 05:57 | XMS_ITS | Encounter Summary ---
Author Organization [facility] Address [address] [place] [address] Phone Care Team Providers Care Polisher And Buffer Name Role Phone Agueda Ann MD Primary Care Provider [phone] Andie Rossi MD Unavailable West Doll MD Unavailable [phone] Britany Coles MD Unavailable [phone] Naun Hoang MD Unavailable + Agueda Ann MD Unavailable Mely Bhatti RN Unavailable [email or web address] Encounter Details Date Type Department Care Team (Late st Contact Info) Description 12/24/2022 Procedure Pass [facility], [facility] 30 [place] [address] Social History Tobacco Use Types Packs/Day Years [...] 12/24/2022 9:29 AM Natalya Menon, NICOLE * [place] Suicide Severity Rating Scale (Screener/Recent Self-Report) Question [...] documented as of this encounter Care Teams Polisher And Buffer Relationship Specialty Start Date End Date Agueda Ann MD [address] [address] [email or web address] PCP - General Family Medicine 02/01/19 Andie Rossi MD [address] [place] [address] Neurology 03/02/19 West Doll MD [address] [place] [address] 104 [place] [address] Cardiology 03/02/19 Britany Coles MD [address] [place] [address] 140 [place] [phone] [email or web address] Surgery 03/02/19 Naun Hoang MD [address] [place] [address] Infectious Diseases 03/02/19 Agueda Ann MD [address] [address] [email or web address] Insurance Assigned Provider 4/6/24 1/6/25 Mely Bhatti, RN [address] [place] [address] [email or web address] 05/12/23 06/09/23 documented as of this encounter Additional Source Comments The information contained in this document represents components of the legal health record. It is not the complete legal health record.[facility]
[2025-01-28 06:28] LABS: Hematocrit 28.0 % (37.0-47.0); Hemoglobin 8.4 g/dl (12.0-16.0); Imm Gran Abs Auto 0.03 X10*3/uL (0.00-0.03); Imm Gran Pct Auto 0.3 % (0.0-0.4); Lymphocytes Absolute Auto 1.8 X10*3/uL (1.2-4.9); Mean Corpuscular HGB Conc 30.0 g/dl (31.0-35.0); Mean Corpuscular Hemoglobin 26.0 pg (27.0-33.0); Mean Corpuscular Volume 86.7 fL (80.0-98.0); NRBC Abs Auto 0.000 X10*3/uL (0.0-0.012); NRBC Pct Auto 0.0 /100WBC (0.0-0.2); Platelet Count 357 X10*3/uL (160-400); Red Blood Count 3.23 X10*6/uL (4.20-5.50); White Blood Count 9.5 X10*3/uL (4.8-10.8)
[2025-01-28 06:37] LABS: Anion Gap 12 (12-20); Blood Urea Nitrogen 51 mg/dL (9-16); Calcium 8.6 mg/dL (8.4-10.2); Carbon Dioxide 22 mmol/L (22-29); Chloride 109 mmol/L (96-108); Estimated Glomerular Filt Rate 41; Potassium 4.9 mmol/L (3.3-5.1); Sodium 138 mmol/L (135-145)
== END 2025-01-28 05:48 | disposition home or self-care (01) ==
LOC: HO.MMNH3L 05:47
PROVIDERS: Visit Provider Student in an Organized Health Care Education/Training Program
DX: I69.398 Other sequelae of cerebral infarction (principal); I25.9 Chronic ischemic heart disease, unspecified; E03.9 Hypothyroidism, unspecified; Z89.611 Acquired absence of right leg above knee
CPT/HCPCS: 36415; 80048; 85025

== ENCOUNTER 2025-02-04 05:29 | Outpatient (REF) | payer MEDICARE, MEDICAID, SELFPAY ==
[2025-02-04 05:24] LABS: MANUAL DIFF FLAG NO
--- OUTSIDE RECORDS SUMMARY | 2025-02-04 05:41 | XMS_ITS | Encounter Summary ---
Author Organization [employer] Address [address] 7t [place] [address] Care Team Providers Care Telephone Operator Chief Name Role Phone Unavailable Primary Care Provider Unavailabl e Reason for Visit * Reason Onset Date Comments medical clearance 05/27/2022 Encounter Details Date Type Department Care Team (Late st Contact Info) Description 05/27/2022 Telephone [facility] [address] [place] [address] Davonte Cunningham DDS medical clearance Social History [...] was for medical clearance. Pls re send [phone] * Telephone Encounter - Lucina Leigh - [...] was for medical clearance. Pls re send [phone] documented in this encounter Plan of Treatment Not on file documented as of this encounter Visit Diagnoses Not on filedocumented in this encounter
--- OUTSIDE RECORDS SUMMARY | 2025-02-04 05:41 | XMS_ITS | Clinical Summary ---
Author Organization [facility] Address [address] [place] [address] Phone Care Team Providers Care Marine Reporter Name Role Phone Agueda Ann MD Primary Care Provider [phone] Andie Rossi MD Unavailable [phone] West Doll MD Unavailable [phone] Britany Coles MD Unavailable Naun Hoang MD [...] mouth daily. 4 Active neomycin/bacitra negrito/polymyxinB (NEOSPORIN, UQL-CIG-SYFBK, TP) Apply 1 Application topically 2 (two) [...] 20 MG tabletIndication s:Coronary artery disease involving pala heart without angina pectoris, unspecified vessel or [...] peripheral intervention as an outpatient with Dr. eMndez which she would like to pursue MRI [...] an echo, and follow-up with her own refrigeration technician who is at [facility]. Acquired hypothyroidism 09/04/2020 Assessment & Plan (12/26/2022 [...] like to little and she is established [facility] weight management so I like her to see the morals squad police officer there she understands and agrees this plan Assessment & Plan (05/17/2019 12:35 PM EST): She is working out, tracking her caloric intake and sticking to nutrition plan although she is under eating. No clear etiology for her weight gain. Start taking levothyroxine separately from the other medications. Check labs today. Make follow-up with morals squad police officer CAD (coronary artery disease) 03/02/2019 Overview (03/02/2019): h/o stent Assessment & Plan (12/26/2022 3:02 PM EDT): No active cp or acute concern -Continue conveyor monitor -Continue aspirin, atorvastatin, Plavix, and Zetia [...] and chronic pain. Certainly would benefit from CHASER HELPER services and I have discussed with pt [...] pt can establish with someone new at [facility]. Assessment & Plan (01/21/2021 12:34 PM [...] and gait. She will be going to [facility] physical medicine and rehabilitation in [place] for this. IgG monoclonal gammopathy Assessment & Plan (03/02/2019 12:15 PM EST): Patient denies ever seeing hematology, has never heard this diagnosis and does not think that she has this. As I do not have records it is difficult for me to understand where this came from. I would like to review her [facility] records and if necessary we will [...] appt for Neuro muscular in Dec at [facility] No further pain. F/u as [...] this topic Medical Devices Implanted Type Area Neurology Physician Assistant Device Identifier Shelf Expiration Date Model / Serial / Lot Stent Supera 6fr 5.5mm 120mm 120cm .014in Otw Vascular Peripheral Nitinol Self Expanding Closed End Braided - [id number] Implanted:Qty: 1 on 11/18/2022 by David Mendez MD at [facility] Stent [employer] 04/27/2024 [id number] / / [id number] Cardiac Stent Neck Hardware Procedures Procedure Name [...] EST) SODIUM 137 133 - 146 mmol/L [facility] CHLORIDE 101 96 - 108 mmol/L [facility] POTASSIUM 4.1 3.3 - 5.1 mmol/L [facility] CO2 24 21 - 35 mmol/L [facility] BUN 27(H) 6 - 19 mg/dL [facility] CREATININE 0.50 0.5 - 1.5 mg/dL [facility] GLUCOSE 103(H) 70 - 99 mg/dL [facility] CALCIUM 9.0 8.4 - 10.3 mg/dL [facility] EGFR 103 >59 mL/min/1.7 3m2 [facility] Comment:Estimated glomerular filtration rate calculated using the CKD-EPI refit equation. ANION GAP 16 10 - 20 mmol/L [facility] Blood 05/23/2023 4:12 PM EST 05/23/2023 4:32 PM EST Mely Padron PA-C LAB BLOOD BKR ORDERABLES Fin al Result Performing Organization Address City/[facility]/ZIP Co de Phone Number [address] [phone] * (ABNORMAL) TSH with reflex (01/13/2023 7:58 AM EDT) TSH 0.03(L) 0.27 - 4.20 uIU/mL [facility] Blood 01/13/2023 7:58 AM EDT 01/13/2023 8:03 AM EDT Agueda Ann MD LAB BLOOD BKR ORDERABLES Final R esult Performing Organization Address City/[facility]/ZIP Co de Phone Number [address] [address] * (ABNORMAL) Lipid panel (12/25/2022 5:22 AM EDT) HDL 46 mg/dL [facility] Comment: Interpretation <40 mg/dL: Low HDL cholesterol (major risk factor for CHD) Greater than or equal to 60 mg/dL: High HDL cholesterol ( negative risk factor for CHD) HDL - cholesterol is affected by a number of factors, e.g. smoking, excerise, hormones, sex and age. CHOLESTEROL 98 0 - 240 mg/dL [facility] TRIGLYCERIDES 86 30 - 160 mg/dL [facility] LDL 35(L) 50 - 129 mg/dL [facility] Comment: LDL levels in terms of risk for coronary heart disease: <100 mg/dL: Optimal 100-129 mg/dL: Near or above optimal 130-159 mg/dL: Borderline high 160-189 mg/dL: High >190 mg/dL: Very High CARDIAC RISK RATIO 2.1(L) 3.3 - 4.4 C [facility] Blood 12/25/2022 5:22 AM EDT 12/25/2022 6:22 AM EDT us Kayley Ribera CIGAR BANDER HAND LAB BLOOD BKR ORDERABLE S Final Result [facility] 30 [place] [address] * MAMMOGRAPHY FOR RESULT ENTRY ONLY (07/07/2022) us Agueda Ann MD HEALTH MAINTENANCE Edited Result - Final from Last 3 Months or Most Recently Relevant to Health Maintenance Insurance MEDIC[place] [facility] [place] & B [facility] Advance Directives For more information, please contact: [phone] (9AM - 5PM [facility], Tuesday-Tuesday) Documents on File Type Date Recorded Patient Digital Advertising Analyst Expl anation Healthcare Proxy 11/08/2022 6:36 PM [...] Status Confirmed With: Patient Care Teams Marine Reporter Relationship Specialty Start Date End Date Agueda Ann MD [address] [place] [address] PCP - General Family Medicine 02/01/19 Andie Rossi MD 48 [place] [address] Neurology 03/02/19 West Doll MD [address] [place] [address] 104 [place] [address] Cardiology 03/02/19 Britany Coles MD [address] [place] [address] 140 [place] [address] [email or web address] [email or web address] Surgery 03/02/19 Naun Hoang MD [address] [address] Infectious Diseases 03/02/19 Additional Source Comments The information contained in this document represents components of the legal health record. It is not the complete legal health record.[facility]
--- OUTSIDE RECORDS SUMMARY | 2025-02-04 05:41 | XMS_ITS | Encounter Summary ---
Author Organization [facility] Address [address] [place] [address] Phone Care Team Providers Care Graphite Disk Assembler Name Role Phone Agueda Ann MD Primary Care Provider [phone] Andie Rossi MD Unavailable [phone] West Doll MD Unavailable Britany Coles MD Unavailable [phone] Naun Hoang MD Unavailable + Agueda Ann MD Unavailable Mely Bhatti RN Unavailable [email or web address] Encounter Details Date Type Department Care Team (Late st Contact Info) Description 12/24/2022 Procedure Pass [facility], [facility] 30 [place] [address] Social History Tobacco Use Types Packs/Day Years [...] 12/24/2022 9:29 AM Natalya Menon, NICOLE * [place] Suicide Severity Rating Scale (Screener/Recent Self-Report) Question [...] documented as of this encounter Care Teams Graphite Disk Assembler Relationship Specialty Start Date End Date Agueda Ann MD [address] [address] [email or web address] PCP - General Family Medicine 02/01/19 Andie Rossi MD [address] [place] [address] Neurology 03/02/19 West Doll MD [address] [place] [address] 104 [place] [address] Cardiology 03/02/19 Britany Coles MD [address] [place] [address] 140 [place] [phone] [email or web address] 03/02/19 aNun Hoang MD [address] [place] [address] Infectious Diseases 03/02/19 Agueda Ann MD [address] [address] [email or web address] Insurance Assigned Provider 4/6/24 1/6/25 Mely Bhatti, RN [address] [place] [address] [email or web address] 05/12/23 06/09/23 documented as of this encounter Additional Source Comments The information contained in this document represents components of the legal health record. It is not the complete legal health record.[facility]
--- OUTSIDE RECORDS SUMMARY | 2025-02-04 05:41 | XMS_ITS | Encounter Summary ---
Author Organization [employer] Address [address] [facility] 7t [place] [address] Care Team Providers Care Bulb Tester Name Role Phone Unavailable Primary Care Provider Unavailabl e Encounter Details Date Type Department Care Team (Latest Contact Info) Description 07/09/2020 Abstract [facility] CONVERSIONS Dental, Provider, DDS Social History Tobacco [...]
--- OUTSIDE RECORDS SUMMARY | 2025-02-04 05:41 | XMS_ITS | Encounter Summary ---
Author Organization [facility] Address [address] [place] [address] Phone Care Team Providers Care Gamb Cutter Name Role Phone Agueda Ann MD Primary Care Provider [phone] Andie Rossi MD Unavailable West Doll MD Unavailable Britany Coles MD Unavailable Naun Hoang MD Unavailable + Agueda Ann MD Unavailable Latosha Garcia OT Unavailable [phone] Latosha Garcia OT Unavailable [phone] Mely Bhatti RN Unavailable [email or web address] Encounter Details Date Type Department Care Team (Late st Contact Info) Description 10/04/2019 Ancillary Orders [facility],Outside Imaging 30 [place] [address] System, Provider Not In, [facility] [address] [address] Social History Tobacco Use Types Packs/Day Years [...] documented as of this encounter Care Teams Gamb Cutter Relationship Specialty Start Date End Date Agueda Ann MD [address] [address] PCP - General Family Medicine 02/01/19 Andie Rossi MD 48 [place] [address] Neurology 03/02/19 West Doll MD [address] [place] [address] 104 [place] [address] Cardiology 03/02/19 Britany Coles MD [address] [place] [address] 140 [place] [phone] [email or web address] 03/02/19 [place] [address] [place] [address] Infectious Diseases 03/02/19 Agueda nAn MD [address] [address] [email or web address] Insurance Assigned Provider 07/02/23 04/02/24 Latosha Garcia, OT 30 [place] [address] [email or web address] Transitions Superintendent Operations DivisionFinancial Services Counselor Therapy 11/05/22 11/07/22 Latosha Garcia, OT 30 [place] [address] [email or web address] Transitions Superintendent Operations DivisionFinancial Services Counselor Therapy 11/24/22 11/25/22 Mely Bhatti, NICOLE 30 [place] [address] [email or web address] Superintendent Operations Division 05/12/23 06/09/23 documented as of this encounter Additional Source Comments The information contained in this document represents components of the legal health record. It is not the complete legal health record.[facility]
--- OUTSIDE RECORDS SUMMARY | 2025-02-04 05:41 | XMS_ITS | Encounter Summary ---
Author Organization [facility] Address [address] [place] [address] Phone Care Team Providers Care Tapper Operator Name Role Phone Agueda Ann MD Primary Care Provider [phone] Andie Rossi MD Unavailable [phone] West Doll MD Unavailable Britany Coles MD Unavailable Naun Hoang MD Unavailable + Agueda Ann MD Unavailable Mely Bhatti RN Unavailable [email or web address] Encounter Details Date Type Department Care Team (Late st Contact Info) Description 12/24/2022 Procedure Pass [facility], [facility] 30 [place] [address] Social History Tobacco Use Types Packs/Day Years [...] 9:29 AM ALEKT Natalya Delgadillo RN * [place] Suicide Severity Rating Scale (Screener/Recent Self-Report) Question [...] documented as of this encounter Care Teams Tapper Operator Relationship Specialty Start Date End Date Agueda Ann MD [address] [address] [email or web address] PCP - General Family Medicine 02/01/19 Andie Rossi MD [address] [place] [address] Neurology 03/02/19 West Doll MD [address] [place] [address] 104 [place] [address] Cardiology 03/02/19 Britany Coles MD [address] [place] [address] 140 [place] [phone] [email or web address] Orthopedic Surgery 03/02/19 Naun Hoang MD [address] [place] [address] Infectious Diseases 03/02/19 Agueda Ann MD [address] [address] [email or web address] Insurance Assigned Provider 07/02/23 04/02/24 Mely Bhatti, NICOLE [address] [address] [email or web address] 05/12/23 06/09/23 documented as of this encounter Additional Source Comments The information contained in this document represents components of the legal health record. It is not the complete legal health record.[facility]
--- OUTSIDE RECORDS SUMMARY | 2025-02-04 05:41 | XMS_ITS | Encounter Summary ---
Author Organization [facility] Address [address] [place] [address] Phone Care Team Providers Care Phys Asst Name Role Phone Agueda Ann MD Primary Care Provider [phone] Andie Rossi MD Unavailable [phone] West Doll MD Unavailable [phone] Britany Coles MD Unavailable [phone] Naun Hoang MD Unavailable + Agueda Ann MD Unavailable Mely Bhatti RN Unavailable [email or web address] Encounter Details Date Type Department Care Team (Late st Contact Info) Description 12/25/2022 Procedure Pass [facility] [address] [place] [address] Social History Tobacco Use Types Packs/Day Years [...] documented as of this encounter Care Teams Phys Asst Relationship Specialty Start Date End Date Agueda Ann MD [address] [place] [address] [email or web address] PCP - General Family Medicine 02/01/19 Andie Rossi MD 48 [place] [address] Neurology 03/02/19 West Doll MD [address] [place] [address] 104 [place] [address] Cardiology 03/02/19 Britany Coles MD [address] [place] [address] 140 [place] [phone] [email or web address] Orthopedic Surgery 03/02/19 [place] [address] [place] [address] Infectious Diseases 03/02/19 Agueda Ann MD [address] [address] [email or web address] Insurance Assigned Provider 07/02/23 04/02/24 Mely Bhatti RN [address] [address] [email or web address] .[email or web address] PHCM Tattooer 05/12/23 06/09/23 documented as of this encounter Additional Source Comments The information contained in this document represents components of the legal health record. It is not the complete legal health record.[facility]
--- OUTSIDE RECORDS SUMMARY | 2025-02-04 05:41 | XMS_ITS | Encounter Summary ---
Author Organization [facility] Address [address] [place] [address] Phone Care Team Providers Care Machine Cleaner Name Role Phone Agueda Ann MD Primary Care Provider [phone] Andie Rossi MD Unavailable [phone] West Doll MD Unavailable Britany Coles MD Unavailable [phone] Naun Hoang MD Unavailable + Agueda Ann MD Unavailable Mely Bhatti RN Unavailable [email or web address] Encounter Details Date Type Department Care Team (Late st Contact Info) Description 12/24/2022 Procedure Pass [facility], [facility] 30 [place] [address] Social History Tobacco Use Types Packs/Day Years [...] 12/24/2022 9:29 AM Natalya Menon, NICOLE * [place] Suicide Severity Rating Scale (Screener/Recent Self-Report) Question [...] as of this encounter Care Teams Machine Cleaner Relationship Specialty Start Date End Date Agueda Ann MD [address] [address] [email or web address] PCP - General Family Medicine 02/01/19 Andie Rossi MD [address] [place] [address] Neurology 03/02/19 West Doll MD [address] [place] [address] 104 [place] [address] Cardiology 03/02/19 Britany Coles MD [address] [place] [address] 140 [place] [phone] [email or web address] [email or web address] 03/02/19 Naun Hoang MD [address] [place] [address] Infectious Diseases 03/02/19 Agueda Ann MD [address] [address] [email or web address] Insurance Assigned Provider 4/6/24 1/6/25 Mely Bhatti, RN [address] [place] [address] [email or web address] 05/12/23 06/09/23 documented as of this encounter Additional Source Comments The information contained in this document represents components of the legal health record. It is not the complete legal health record.[facility]
--- OUTSIDE RECORDS SUMMARY | 2025-02-04 05:41 | XMS_ITS | Clinical Summary ---
Author Organization [facility] it Address [address] [place] [address] Care Team Providers Care Trimmer Machine Operator Name Role Phone Unavailable Primary Care Provider Unavailabl e Immunizations Immunization Administration Dates Next Due Pfizer SARS-CoV-2 COVID-19, mRNA, LNP-S, preservative free 07/02/2020,06/07/2020 Surgical History Surgery Date Site/Laterality Comments NECK SURGERY PROCEDURE: HISTORICAL NECK SURGERY; COMMENT: spinal stenosis TONSILLECTOMY PROCEDURE: HISTORICAL TONSILLECTOMY CHOLECYSTECTOMY 09/1989 PROCEDURE: HISTORICAL CHOLECYSTECTOMY BREAST REDUCTION PROCEDURE: MO BREAST REDUCTION ROBOTIC ASSISTED HYSTERECTOMY 03/05/14 PROCEDURE: [...]
--- OUTSIDE RECORDS SUMMARY | 2025-02-04 05:41 | XMS_ITS | Encounter Summary ---
Author Organization [employer] Address [address] [facility] 7t [place] [address] Care Team Providers Care J2Ee Engineer Name Role Phone Unavailable Primary Care Provider Unavailabl e Encounter Details Date Type Department Care Team (Latest Contact Info) Description 05/02/2018 Abstract [facility] CONVERSIONS Dental, Provider, DDS Social History Tobacco [...]
--- OUTSIDE RECORDS SUMMARY | 2025-02-04 05:41 | XMS_ITS | Encounter Summary ---
Author Organization [employer] Address [address] [facility] 7t [place] [address] Care Team Providers Care Top Former Name Role Phone Unavailable Primary Care Provider Unavailabl e Encounter Details Date Type Department Care Team (Latest Contact Info) Description 06/29/[address] [facility] CONVERSIONS Dental, Provider, DDS Social [...]
--- OUTSIDE RECORDS SUMMARY | 2025-02-04 05:41 | XMS_ITS | Encounter Summary ---
Author Organization [facility] Address [address] [place] [address] Phone Care Team Providers Care Housekeeping Staff Name Role Phone Agueda Ann MD Primary Care Provider [phone] Andie Rossi MD Unavailable West Doll MD Unavailable Britany Coles MD Unavailable Naun Hoang MD Unavailable + Agueda Ann MD Unavailable Mely Bhatti RN Unavailable [email or web address] Encounter Details Date Type Department Care Team (Late st Contact Info) Description 12/24/2022 Procedure Pass [facility], [facility] 30 [place] [address] Social History Tobacco Use Types Packs/Day Years [...] 12/24/2022 9:29 AM Natalya Menon, NICOLE * [place] Suicide Severity Rating Scale (Screener/Recent Self-Report) Question [...] documented as of this encounter Care Teams Housekeeping Staff Relationship Specialty Start Date End Date Agueda Ann MD [address] [address] [email or web address] PCP - General Family Medicine 02/01/19 Andie Rossi MD [address] [place] [address] Neurology 03/02/19 West Doll MD [address] [place] [address] 104 [place] [address] Cardiology 03/02/19 Britany Coles MD [address] [place] [address] 140 [place] [phone] .[employer] Orthopedic Surgery 03/02/19 Naun Hoang MD [address] [place] [address] Infectious Diseases 03/02/19 Agueda Ann MD [address] [address] [email or web address] Insurance Assigned Provider 4/6/24 1/6/25 Mely Bhatti, RN [address] [place] [address] [email or web address] Hris Manager 05/12/23 06/09/23 documented as of this encounter Additional Source Comments The information contained in this document represents components of the legal health record. It is not the complete legal health record.[facility]
--- OUTSIDE RECORDS SUMMARY | 2025-02-04 05:41 | XMS_ITS | Encounter Summary ---
Author Organization [facility] Address [address] [place] [address] Phone Care Team Providers Care Instant Powder Supervisor Name Role Phone Agueda Ann MD Primary Care Provider [phone] Andie Rossi MD Unavailable [phone] West oDll MD Unavailable Britany Coles MD Unavailable Naun Hoang MD Unavailable + Agueda Ann MD Unavailable Mely Bhatti RN Unavailable [email or web address] Encounter Details Date Type Department Care Team (Late st Contact Info) Description 12/24/2022 Procedure Pass [facility], [facility] 30 [place] [address] Social History Tobacco Use Types Packs/Day Years [...] high school, GED, job training, learning the Trinidadian language, technical skills, or developing parenting skills)? [...] 12/24/2022 9:29 AM Natalya Menon, NICOLE * [place] Suicide Severity Rating Scale (Screener/Recent Self-Report) Question [...] documented as of this encounter Care Teams Instant Powder Supervisor Relationship Specialty Start Date End Date Agueda Ann MD [address] [address] [email or web address] PCP - General Family Medicine 02/01/19 Andie Rossi MD [address] [place] [address] Neurology 03/02/19 West Doll MD [address] [place] [address] 104 [place] [address] Cardiology 03/02/19 Britany Coles MD [address] [place] [address] [address] [place] [phone] [email or web address] Orthopedic Surgery 03/02/19 Naun Hoang MD [address] [place] [address] Infectious Diseases 03/02/19 Agueda Ann MD [address] [address] [email or web address] Insurance Assigned Provider 4/6/24 1/6/25 Mely Bhatti, RN [address] [place] [address] [email or web address] Location And Measurement Technician 05/12/23 06/09/23 documented as of this encounter Additional Source Comments The information contained in this document represents components of the legal health record. It is not the complete legal health record.[facility]
--- OUTSIDE RECORDS SUMMARY | 2025-02-04 05:41 | XMS_ITS | Clinical Summary ---
Author Organization [employer] Address [address] [facility] [address]t [place] [address] Care Team Providers Care Production Helper Name Role Phone Unavailable Primary Care [...] Most Recently Relevant to Health Maintenance Insurance [facility] MEDICAID STAND ADULT
--- OUTSIDE RECORDS SUMMARY | 2025-02-04 05:41 | XMS_ITS | Clinical Summary ---
Author Organization [address] Address [address] [place] [id number] Care Team Providers Care Inspector Wire Products Name Role Phone Unavailable Primary Care Provider [...]
--- OUTSIDE RECORDS SUMMARY | 2025-02-04 05:41 | XMS_ITS | Encounter Summary ---
Author Organization [facility] Address [address] [place] [address] Phone Care Team Providers Care Manual Arts Therapy Teacher Name Role Phone Agueda Ann MD Primary Care Provider [phone] Andie Rossi MD Unavailable West Doll MD Unavailable [phone] Britany Coles MD Unavailable Naun Hoang MD Unavailable + Agueda Ann MD Unavailable Latosha Garcia OT Unavailable [phone] Latosha Garcia OT Unavailable [phone] Mely Bhatti RN Unavailable [email or web address] Encounter Details Date Type Department Care Team (Late st Contact Info) Description 11/04/2022 Procedure Pass [facility] 30 [place] [address] Social History Tobacco Use Types Packs/Day Years [...] high school, GED, job training, learning the [place] Zealander language, technical skills, or developing parenting skills)? [...] 11/04/2022 1:06 AM Lucita Hirsch, NICOLE * [place] Suicide Severity Rating Scale (Screener/Recent Self-Report) Question [...] documented as of this encounter Care Teams Manual Arts Therapy Teacher Relationship Specialty Start Date End Date Agueda Ann MD [address] [address] [email or web address] PCP - General Family Medicine 02/01/19 Andie Rossi MD [address] [place] [address] Neurology 03/02/19 West Doll MD [address] [place] [address] 104 [place] [address] Cardiology 03/02/19 Britany Coles MD [address] [place] [address] 140 [place] [phone] [email or web address] Orthopedic Surgery 03/02/19 Naun Hoang MD [address] [place] [address] Infectious Diseases 03/02/19 Agueda Ann MD [address] [address] [email or web address] Insurance Assigned Provider 07/02/23 04/02/24 Latosha Garcia, OT 30 [place] [address] [email or web address] Transitions Front Desk LeadInterpreter Therapy 11/05/22 11/07/22 Latosha Garcia, OT 30 [place] [address] [email or web address] Transitions Front Desk LeadInterpreter Therapy 11/24/22 11/25/22 Mely Bhatti RN 30 [place] [address] [email or web address] Front Desk Lead 05/12/23 06/09/23 documented as of this encounter Additional Source Comments The information contained in this document represents components of the legal health record. It is not the complete legal health record.[facility]
--- OUTSIDE RECORDS SUMMARY | 2025-02-04 05:41 | XMS_ITS | Encounter Summary ---
Author Organization [facility] Address [address] [place] [address] Phone Care Team Providers Care Railroad Auditor Name Role Phone Agueda Ann MD Primary Care Provider Andie Rossi MD Unavailable West Doll MD Unavailable Britany Coles MD Unavailable Naun Hoang MD Unavailable + Agueda Ann MD Unavailable Latosha Garcia OT Unavailable Mely hBatti RN Unavailable [email or web address] Encounter Details Date Type Department Care Team (Late st Contact Info) Description 11/18/2022 Procedure Pass [facility]ventional Rad[facility] 30 [place] [address] Social History Tobacco Use Types Packs/Day Years [...] high school, GED, job training, learning the Algerian language, technical skills, or developing parenting skills)? [...] documented as of this encounter Care Teams Railroad Auditor Relationship Specialty Start Date End Date Agueda Ann MD [address] [place] [address] PCP - General Family Medicine 02/01/19 Andie Rossi MD 48 [place] [address] Neurology 03/02/19 West Doll MD [address] [place] [address] 104 [place] [address] Cardiology 03/02/19 Britany Coles MD [address] [facility] 140 [place] [phone] [email or web address] [email or web address] Surgery 03/02/[place] [address] [place] [address] Infectious Diseases 03/02/19 Agueda Ann MD [address] [address] [email or web address] Insurance Assigned Provider 07/02/23 04/02/24 Latosha Garcia, OT 30 [place] [address] [email or web address] Transitions Towel Rolling Machine OperatorArmed Guard Therapy 11/24/22 11/25/22 Mely Bhatti, NICOLE 30 [place] [address] [email or web address] PHCM Towel Rolling Machine Operator 05/12/23 06/09/23 documented as of this encounter Additional Source Comments The information contained in this document represents components of the legal health record. It is not the complete legal health record.[facility]
--- OUTSIDE RECORDS SUMMARY | 2025-02-04 05:41 | XMS_ITS | Encounter Summary ---
Author Organization [facility] Address [address] [place] [address] Phone Care Team Providers Care Cell Lead Name Role Phone Agueda Ann MD Primary Care Provider [phone] Andie Rossi MD Unavailable [phone] West Doll MD Unavailable Britany Coles MD Unavailable Naun Hoang MD Unavailable + Agueda Ann MD Unavailable Mely Bhatti RN Unavailable [email or web address] Encounter Details Date Type Department Care Team (Late st Contact Info) Description 12/25/2022 Procedure Pass Non-Invasive Cardiology 30 [place] [address] Social History Tobacco Use Types Packs/Day Years [...] documented as of this encounter Care Teams Cell Lead Relationship Specialty Start Date End Date Agueda Ann MD [address] [place] [address] [email or web address] PCP - General Family Medicine 02/01/19 Andie Rsosi MD 48 [place] [address] Neurology 03/02/19 Wets Doll MD [address] [place] [address] 104 [place] [address] Cardiology 03/02/19 Britany Coles MD [address] [place] [address] 140 [place] [phone] Orthopedic Surgery 03/02/19 [place] [address] [place] [address] Infectious Diseases 03/02/19 Agueda Ann MD [address] [address] [email or web address] Insurance Assigned Provider 07/02/23 04/02/24 Mely Bhatti RN [address] [address] [email or web address] PHCM Dry Heat Room Attendant 05/12/23 06/09/23 documented as of this encounter Additional Source Comments The information contained in this document represents components of the legal health record. It is not the complete legal health record.[facility]
--- OUTSIDE RECORDS SUMMARY | 2025-02-04 05:41 | XMS_ITS | Encounter Summary ---
Author Organization [facility] Address [address] [place] [address] Phone Care Team Providers Care Physical Geographer Name Role Phone Agueda Ann MD Primary Care Provider [phone] Andie Rossi MD Unavailable West Doll MD Unavailable Britany Coles MD Unavailable Naun Hoang MD Unavailable + Agueda Ann MD Unavailable Latosha Garcia OT Unavailable [phone] Latosha Garcia OT Unavailable [phone] Mely Bhatti RN Unavailable [email or web address] Encounter Details Date Type Department Care Team (Late st Contact Info) Description 07/31/2021 Procedure Pass [facility] Endoscopy Admitting Dept Virtual Department 30 [place] [address] Social History Tobacco Use Types Packs/Day Years [...] high school, GED, job training, learning the Palauan language, technical skills, or developing parenting skills)? [...] documented as of this encounter Care Teams Physical Geographer Relationship Specialty Start Date End Date Agueda Ann MD [address] [place] [address] PCP - General Family Medicine 02/01/19 Andie Rossi MD [address] [place] [address] Neurology 03/02/19 West Doll MD [address] [place] [address] Cardiology 03/02/19 Britany Coles MD [address] [facility] 140 [place] [phone] [email or web address] Orthopedic Surgery 03/02/19 Naun Hoang MD [address] [facility] [address] [place] [address] Infectious Diseases 03/02/19 Agueda Ann MD [address] [address] [email or web address] Insurance Assigned Provider 07/02/23 04/02/24 Latosha Garcia, OT 30 [place] [address] [email or web address] Transitions Railroad Signal TechnicianNail Specialist Therapy 11/05/22 11/07/22 Latosha Garcia, OT 30 [place] [address] [email or web address] Transitions Railroad Signal TechnicianNail Specialist Therapy 11/24/22 11/25/22 Mely Bhatti RN 30 [place] [address] [email or web address] Railroad Signal Technician 05/12/23 06/09/23 documented as of this encounter Additional Source Comments The information contained in this document represents components of the legal health record. It is not the complete legal health record.[facility]
--- OUTSIDE RECORDS SUMMARY | 2025-02-04 05:41 | XMS_ITS | Data Portability ---
Author Organization [facility], Main Office Address [address] [address] [address] [place] [address] Care Team Providers Care Sample Grader Name Role Phone VINI DOWLING 1ST FLOOR [...] Address Organization Details Recorded Time Diabetes mellitus 74228324 Active 2023 MIRI NORTON [address] [facility], [address], [place], [address], [facility] 4 20:18:04 Essential hypertensio n 01181221 Active 2023 MIRI NORTON [address] [facility], [address], [place], [address], [facility] 4 20:18:10 Hyperlipide reinier 70570470 Active 2023 MIRI NORTON [address] [place] [address], [address], [place], [address], [facility] 4 20:18:16 Femoral-pop liteal artery bypass graft Completed 202309/01/2023 MIRI NORTON [address] [place] [address], [address], [place], [address], [facility] 4 22:16:23 Anemia 349542884 Active 2023 MIRI NORTON [address] [place] [address], [address], [place], [address], [facility] 4 20:20:45 Cerebrovasc ular accident 083738591 Active 2023 MIRI NORTON [address] [place] [address], [address], [place], [address], [facility] 4 20:21:06 Femoro-ante rior tibial bypass graft Completed 202309/01/2023 MIRI NORTON [address] [place] [address], [address], [place], [address], [facility] 4 22:16:23 Chronic kidney disease stage 3 474149442 Active 2023 MIRI NORTON [address] [place] [address], [address], [place], [address], [facility] 4 20:28:49 Peripheral vascular disease 969315996 Active 2023 MIRI NORTON [address] [place] [address], [address], [place], [address], [place] [facility] 20:29:56 Asthenia 05068234 Active 2023 PÉREZ LUNDBERG, MIRI [address], [address], [place], [address], [facility] 20:30:45 Insomnia 816277178 Active 2023 PÉREZ LUNDBERG, MIRI [address], [address], [place], [address], [facility] 4 21:49:49 Constipatio n 65482818 Active [address]ORTON [address], [address], [place], [address], [facility] 4 21:52:14 Acute kidney injury 22127597 Active 2023 [address]I NORTON [address], [address], [place], [address], [facility] 4 21:56:55 Hypocalcemi a 5583239 Completed 202309/01/[address]ORTON [address], [address], [place], [address], [facility] 4 22:16:23 Myasthenia gravis 10032806 Active 2023 [address]I NORTON [address], [address], [place], [address], [facility] 4 22:10:42 Aphasia 89613822 Completed 202309/01/20[address] NORTON [address], [address], [place], [address], [facility] 4 22:16:23 Vascular dementia 229510819 Active 2023 [address] NORTON [address], [address], [place], [address], [facility] 4 13:06:33 Amputated below knee 930216284 Active [address]ORTON [address], [address], [place], [address], [facility] 4 16:38:11 Delirium 3258154 Active [address]ORTON [address], [address], [place], [address], [facility] 4 16:54:43 Dysphagia 53115429 Active [address]P [address], [address], [place], [address], [facility] 4 16:55:09 Toxic encephalopa thy 22844025 Active 2023 JOHN NORTONP [address] [facility], [address], [place], [address], [facility] 4 16:55:43 Hypothyroid ism 08334233 Active 2023 JOHN NORTONP [address] [facility], [address], [place], [address], [facility] 4 22:18:37 Anxiety 34531094 Active 2023 PÉREZ LUNDBERG [facility] [address] [facility], [address], [place], [address], [facility] 4 22:24:04 Carotid artery stenosis 28266583 Active 2023 MIRI NORTON [address] [facility], [address], [place], [address], [facility] 4 12:10:00 Problem Notes None [...] 97 % 118/68 mm[Hg] MIRI NORTON [address] [facility], [address], [place], [address], [facility] 4 14:16:49 Date Recorded Body height Heart rate Respiratory rate Body temperature Oxygen saturation Oxygen saturation in Arterial blood by Pulse oximetry Systolic And Diastolic Provider Name and Address Organization Details Last Updated DateTime 4 165.1 cm 73 /min 18 /min 98 [degF] 94 % 94 % 111/76 mm[Hg] MIRI NORTON [address] [facility], [facility] [address], [place], [address], [facility] 4 11:35:13 Date Recorded Body height Respiratory rate Body temperature Oxygen saturation Oxygen saturation in Arterial blood by Pulse oximetry Heart rate Systolic And Diastolic Provider Name and Address Organization Details Last Updated DateTime 4 165.1 cm 18 /min 98 [degF] 94 % 94 % 68 /min 118/71 mm[Hg] MIRI NORTON [address] [facility], [address], [place], [address], [facility] 4 16:01:39 Date Recorded Body height Body mass index (BMI) Body weight Heart rate Respiratory rate Body temperature Oxygen saturation Oxygen saturation in Arterial blood by Pulse oximetry Systolic And Diastolic Provider Name and Address Organization Details Last Updated DateTime 4 165.1 cm 28.6 kg/m2 99318.8 9 g 73 /min 16 /min 98.4 [degF] 100 % 100 % 135/68 mm[Hg] MIRI NORTON [address] [facility], [address], [place], [address], [facility] 4 15:14:16 Social History Question Answer Notes LastModified by Organizat ion Details LastModified Time Tobacco Smoking Status Never Smoker MIRI NORTON [address] [facility], [address], [place], [address], [facility] 06/30/2023 02:31:25 Do You Have [...] Do You Have A Medical 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 Yes Information not available 07/22/2023 What Was [...] Time Tdap 9 completed Elle South null, [facility] 07/01/2023 13:25:18 Tdap 8 completed Elle South null, [facility] 07/01/2023 13:25:33 Pneumococcal conjugate PCV20, polysaccharide [id number] conjugate, adjuvant, PF 2 completed Elle South [facility], [facility] 07/01/2023 13:25:55 pneumococcal polysaccharide PPV23 4 completed Elle South null, [facility] 07/01/2023 13:26:09 pneumococcal polysaccharide PPV23 7 completed Elle South [facility] 07/01/2023 13:26:18 influenza, unspecified formulation 2 completed Elle South [facility] 07/01/2023 13:26:47 influenza, unspecified formulation 3 completed Elle Brannon [facility], [facility] 07/01/2023 13:26:55 SARS-COV-2 (COVID-19) vaccine, UNSPECIFIED 1 completed Elle Brannon [facility] 07/01/2023 13:27:17 SARS-COV-2 (COVID-19) vaccine, UNSPECIFIED 1 completed Elle Brannon [facility] 07/01/2023 13:27:40 SARS-COV-2 (COVID-19) vaccine, UNSPECIFIED 1 completed Elle Brannon [facility], [facility] 07/01/2023 13:27:55 SARS-COV-2 (COVID-19) vaccine, UNSPECIFIED 2 completed [facility] 13:28:04 SARS-COV-2 (COVID-19) vaccine, UNSPECIFIED 2 completed [facility] 13:28:24 SARS-COV-2 (COVID-19) vaccine, UNSPECIFIED 3 completed Elle Brannon [facility] 07/01/2023 13:28:37 zoster, unspecified formulation 9 completed Elle South [facility] 07/01/2023 13:29:06 zoster, unspecified formulation 9 completed Elle South [facility] 07/01/2023 13:29:21 Past Encounters Encounter ID Performer Location Encounter Start Date Encounter Closed Date Diagnosis/Indication Diagnosis SNOMED-CT Code Diagnosis ICD10 Code Diagnosis IMO Codes Diagnosis Note [id number] MIRI NORTON [address] [place] [address] 06/29/2023 15:34:40 07/22/2023 14:35:38 Peripheral vascular disease 384702848 I73.9 s/p right femoral endarterec bridget with [...] rightfollo w up with vascular 06/29 Asthenia 56038946 R53.1 hx of myasthenia gravisPT/O T eval and treat Diabetes mellitus 216596 09 E11.9 A1c 5.7 on 06/23hospit al records indicate that she states she is taking for constipati on, she is not sure she is a diabetic.c ontinue metformin 500 mg BIDcontinu e to monitor FSfollow-u p with PCP after discharge for further management Essential hypertension 32852510 I10 continue lisinopril 5 mg dailyconti nue metoprolol 50 mg bidfurosem oxana 40 mg dailymonit or BP /labs Hyperlipidemia 39191313 E78.5 atorvastat in 40 mg dailymonit or lipids prn Insomnia 940293589 G47.0 0 continue melatonin 9 mg hscontinue trazadone 12.5 mg hs prn Constipation 82468480 K5 9.00 continue colace 100 mg bidcontinu e miralax 17 gm dailyincre ase oral hydration Anemia 680328524 D64.9 continue ferrous sulfate 325 mg dailymonit or CBCH&H stable at 7.9/25.1 Hypocalcemia 3829270 E83 .51 continue calcium carbonate 500 mg dailyconti nue cholecalci ferol 1000 u daily Myasthenia gravis 779315 04 G70.00 carrying dxmaintain safety/pre cautionsno t on medication Cerebrovas cular accident 020011168 I63.9 carrying dx Chronic ki dney disease stage 3 012791343 N18.30 mahi resolved in acute careavoid nephrotoxi c medication smonitor labs [id number] [facility] [address] [place] [address] 06/30/2023 11:39:21 07/04/2023 14:42:16 Bleeding from nose 031320763 R04.0 uncontroll ed bleeding from right narespt is on multiple anticoag( asa, eliquis and plavix) held this morning.wi ll send to ED for eval and tx. [id number] MIRI NORTON [address] [place] [address] 07/12/2023 11:03:46 07/19/2023 11:10:58 Open wound of right foot 1529040692 4684146 S91.301A dorsal right foot with wound vacDo Not remove wound vac, she has appt with vascular on 07/13 Surgical i ncision wound of skin 3489594612 00 R23.8 right lateral mid thigh with 22 nehemias right low leg corral 12 staple right lower extremity medial thigh wound with packing Peripheral vascular disease 805021628 I73.9 s/p right femoral endarterec bridget with [...] rightfollo w up with vascular 06/29 Asthenia 97119093 R53.1 hx of myasthenia gravisPT/O T eval and treat Diabetes mellitus 727490 09 E11.9 A1c 5.7 on 06/23hospit al records indicate that she states she is taking for constipati on, she is not sure she is a diabetic.c ontinue metformin 500 mg BIDcontinu e to monitor FSfollow-u p with PCP after discharge for further management Essential hypertension 70865818 I10 continue lisinopril 5 mg dailyconti nue metoprolol 50 mg bidfurosem oxana 40 mg dailymonit or BP /labs Hyperlipidemia 31338769 E78.5 atorvastat in 40 mg dailymonit or lipids prn Insomnia 050981299 G47.0 0 continue melatonin 9 mg hscontinue trazadone 12.5 mg hs prn Constipation 30948551 K5 9.00 continue colace 100 mg bidcontinu e miralax 17 gm dailyincre ase oral hydration Anemia 224952279 D64.9 baseline 7.9-8decre ased to 7.0 due to epistaxiss he was transfused 2 PRBCsconti nue ferrous sulfate 325 mg dailymonit or CBC Hypocalcemia 2228610 E83 .51 continue calcium carbonate 500 mg dailyconti nue cholecalci ferol 1000 u daily Myasthenia gravis 911551 04 G70.00 carrying dxmaintain safety/pre cautionsno t on medication Cerebrovas cular accident 157401792 I63.9 carrying dx Chronic ki dney disease stage 3 732183379 N18.30 mahi resolved in acute careavoid nephrotoxi c medication smonitor labs Aphasia 80520640 R47.01 hx of CVAIntermi ttent aphasia/Wo rd finding difficulty no new stroke seen on brain MRI.Suspec t vascular dementia, may have some hypoperfus ion given her anemia. [id number] MIRI NORTON [address] [place] [address] rd [place] [address] 07/18/2023 10:15:58 07/22/2023 15:25:22 Open wound of right foot 9390050656 7867731 S91.301A s/p wound debridemen t 07/13, will be returning to vascular 07/19 for integra placement and wound vac Surgical i ncision wound of skin 8436228968 00 R23.8 right lateral mid thigh with 22 staplesrig ht low leg corral 12 staplerigh t lower extremity medial thigh wound with packingnur sing to removed on 07/18 ord placed in [facility] Peripheral vascular disease 703445531 I73.9 s/p right femoral endarterec bridget with [...] 6 prncontinu e lidocaine patch right Asthenia 83480171 R53.1 hx of myasthenia gravisPT/O T eval and treat Diabetes mellitus 792942 09 E11.9 A1c 5.7 on 06/23hospit al records indicate that she states she is taking for constipati on, she is not sure she is a diabetic.c ontinue metformin 500 mg BIDcontinu e to monitor FSfollow-u p with PCP after discharge for further management Essential hypertension 25692199 I10 continue lisinopril 5 mg dailyconti nue metoprolol 50 mg bidfurosem oxana 40 mg dailymonit or BP /labs Constipation 65512703 K5 9.00 continue colace 100 mg bidcontinu e miralax 17 gm dailyincre ase oral hydration Anemia 331246985 D64.9 baseline 7.9-8decre ased to 7.0 due to epistaxiss he was transfused 2 PRBCsconti nue ferrous sulfate 325 mg dailymonit or CBC Aphasia 66475166 R47.01 hx of CVAIntermi ttent aphasia/Wo rd finding difficulty no new stroke seen on brain MRI.Suspec t vascular dementia, may have some hypoperfus ion given her anemia. [id number] Afia Tierney MD [address] [place] [address] 07/22/2023 14:24:36 08/15/2023 12:08:31 Open wound of right foot 9456108065 7872559 S91.301A Continue wound care as ordered.F/ U with surgeon as planned for further debridemen t and wound vac placement. Surgical i ncision wound of skin 8471613506 00 R23.8 Wounds healing well.Stale s removed. Peripheral vascular disease 178476686 I73.9 s/p right femoral endarterec bridget with [...] mg q 6 hrs prnMonitor sxs. Asthenia 13861273 R53.1 As above. Diabetes mellitus 185368 09 E11.9 HgA1C was 5.7 on 06/23All sugars <200 since here, so fingerstic ks d/c'd on 07/18Contin ue metformin 500 mg BIDMonitor fingerstic ks prn. Essential hypertension 78736077 I10 BP in good control on lisinopril 5 mg qd, metoprolol 50 mg BID, and furosemide 40 mg qdMonitor BP and labs. Constipation 74865350 K5 9.09 Continue bowel meds as ordered.Mo nitor bowel function. Anemia 168645436 D64.89 Multifacto rial.Galindo nue ferrous sulfate 325 mg qdMonitor CBC Aphasia 72727948 R47.01 As above. Hyperlipidemia 13761184 E78.49 Continue atorvastat in 40 mg qdMonitor lipids yearly Insomnia 344675792 G47.0 0 Continue melatonin 9 mg qhs and trazadone 12.5 mg qhs prnMonitor sleep patterns. Hypocalcemia 9982388 E83 .51 Doesn't have hypocalcem ia.Correct ed Ca+ os 9.08Likely is on Ca+ and vit D for osteopenia .Continue calcium carbonate 500 mg qd and cholecalci ferol 1000 IU qd. Myasthenia gravis 771545 04 G70.00 Carrying dxOn no meds at this time.Very deconditio kelsy.Needs PT/OT for strengthen ing, balance, gait training, safety and function.C ontinue fall precaution s.Monitor for safety. Cerebrovas cular accident 369814448 I63.89 With mod to severe aphasia.SL P eval and tx.Continu e meds as above.Prakash emory for new neuro sxs. Chronic ki dney disease stage 3 996164725 N18.32 At baseline.C ontinue to avoid nephrotoxi c meds as able.Monit or labs.Renal consult prn. Anxiety 76808228 F41.1 Very anxious tonight. Anxiety makes it even harder for her to get her words out.Will start lorazepam 0.5 mg q 6 hrs prn [id number] MIRI NORTON [address] [place] [address] [place] [address] 07/25/2023 12:45:25 07/26/2023 15:42:48 Open wound of right foot 4733887070 9420684 S91.301A 07/19: s/p wound debridemen tcontinue wound treatment as ordered.fo llow up with [facility] on 08/01 at 130 pm Surgical i ncision wound of skin 0617612461 00 R23.8 right lateral mid thigh - HEALING NEHEMIAS REMOVED IN ACUTE CAREright low leg corral healingrig ht lower extremity medial thigh wound with packing Peripheral vascular disease 106288869 I73.9 s/p right femoral endarterec bridget with [...] 6 prncontinu e lidocaine patch right Asthenia 53492370 R53.1 hx of myasthenia gravisPT/O T eval and treat Diabetes mellitus 287053 09 E11.9 continue metformin 500 mg BIDcontinu e to monitor FSfollow-u p with PCP after discharge for further management Essential hypertension 08575499 I10 continue lisinopril 5 mg dailyconti nue metoprolol 50 mg bidfurosem oxana 40 mg dailymonit or BP /labs Constipation 96404612 K5 9.00 continue colace 100 mg bidschedul ed miralax 17 gm daily and senna 8.6 mg daily.incr ease oral hydration Anemia 397475879 D64.9 see hpitoday 6.7 -will recheck on 07/25contin ue ferrous sulfate 325 mg dailycolor is normal, there is no SOB, extremitie s are warm.monit or CBC [id number] MIRI NORTON [address] [place] [address] [place] [address] 07/29/2023 09:49:56 08/02/2023 10:28:17 Open wound of right foot 2654230742 2707335 S91.301A 07/19: s/p wound debridemen tcontinue wound treatment as ordered.fo llow up with [facility] on 08/01 at 130 pm Peripheral vascular disease 610859217 I73.9 s/p right femoral endarterec bridget with [...] prncontinu e lidocaine patch right Diabetes mellitus 033257 09 E11.9 continue metformin 500 mg BIDcontinu e to monitor FSfollow-u p with PCP after discharge for further management Essential hypertension 30347939 I10 continue lisinopril 5 mg dailyconti nue metoprolol 50 mg bidfurosem oxana 40 mg dailymonit or BP /labs Anemia 735424668 D64.9 see hpicontinu e ferrous sulfate 325 mg dailycolor is normal, there is no SOB, extremitie s are warm.monit or CBC [id number] MIRI NORTON [facility] [address] [facility] [place] [address] 08/05/2023 09:45:20 08/09/2023 11:18:14 Open wound of right foot 8492449027 9062645 S91.301A 07/19: s/p wound debridemen tcontinue wound treatment as ordered.fo llow up with [facility] on 08/02 with new wound care orders-[facility] care for R foot: Apply saline moistened Promogran over Puraply three times weekly. Peripheral vascular disease 396132195 I73.9 s/p right femoral endarterec bridget with [...] prncontinu e lidocaine patch right Diabetes mellitus 295369 09 E11.9 continue metformin 500 mg BIDcontinu e to monitor FSfollow-u p with PCP after discharge for further management Essential hypertension 84543047 I10 continue lisinopril 5 mg dailyconti nue metoprolol 50 mg bidfurosem oxana 40 mg dailymonit or BP /labs Anemia 824392480 D64.9 see hpicontinu e ferrous sulfate 325 mg dailycolor is normal, there is no SOB, extremitie s are warm.monit or CBC [id number] [facility] [address] [facility] [place] [address] 08/09/2023 08:23:37 08/12/2023 11:43:31 Open wound of right foot 4166327505 6500929 S91.301A 07/19: s/p wound debridemen tcontinue wound treatment as ordered.fo llow up with [facility] on 08/02 with new wound care orders-[facility] care for R foot: Apply saline moistened Promogran over Puraply three times weekly.[facility]. [facility] vascular disease 663911033 I73.9 s/p right femoral endarterec bridget with [...] prncontinu e lidocaine patch right Diabetes mellitus 370267 09 E11.9 continue metformin 500 mg BIDcontinu e to monitor FS Essential hypertension 41926144 I10 continue lisinopril 5 mg dailyconti nue metoprolol 50 mg bidfurosem oxana 40 mg dailymonit or BP /labs Anemia 337635101 D64.9 H/H has been stable.con tinue ferrous sulfate 325 mg dailycolor is normal, there is no SOB, extremitie s are warm.monit or CBC [id number] MIRI NORTON [address] [place] [address] 08/15/2023 13:44:19 08/18/2023 13:20:18 Open wound of right foot 0993744744 2308325 S91.301A 07/19: s/p wound debridemen tcontinue wound treatment as ordered.fo llow up with [facility] on 08/02 with new wound care orders-[facility] care for R foot: Apply saline moistened Promogran over Puraply three times weekly.07/26 5 :s/p right foot debridemen t, applicatio n of skin substitute graftfollo w up appt 08/15 at [facility] with vascular. Peripheral vascular disease 576065084 I73.9 s/p right femoral endarterec bridget with [...] prncontinu e lidocaine patch right Diabetes mellitus 502427 09 E11.9 continue metformin 500 mg BIDcontinu e to monitor FS Essential hypertension 55837926 I10 continue lisinopril 5 mg dailyconti nue metoprolol 50 mg bidfurosem oxana 40 mg dailymonit or BP /labs Anemia 809947549 D64.9 H/H 6.6/21.2- will repeat labsconsid er adding ascorbic acid dailyconti nue ferrous sulfate 325 mg dailycolor is normal, there is no SOB, extremitie s are warm.monit or CBC [id number] MIRI NORTON [address] [place] [address] 08/16/2023 08:21:08 08/18/2023 15:50:07 Open wound of right foot 1028840362 9689792 S91.301A see HPI with new finding today,07/19 : s/p wound debridemen :s/p right foot debridemen t, applicatio n of skin substitute graft08/10: tuesday morning sent back to S for excessive wound bleeding thru dressings- transfused 1 unit of packed red blood cells.08/11 : returned from [facility].: abnormal H/H 6.3/19.9 Peripheral vascular disease 615498048 I73.9 s/p right femoral endarterec bridget with [...] 6 prncontinu e lidocaine patch right Anemia 224296294 D64.9 H/H 6.3/19.9co ntinue ferrous sulfate 325 mg dailycolor is pale there is no SOB, extremitie s are warm, right foot cold. [id number] [facility] [address] [place] [address] [place] [address] 08/29/2023 12:13:56 09/05/2023 15:08:58 Amputated below knee 863429651 Z89.519 Critical limb ischemia of right lower extremity now s/p right below knee amputation .continue oxycodone 5 mg q 6 prnfollow up with vascular on 09/01/23 Peripheral vascular disease 449959668 I73.9 s/p below knee amputation continue asa, plavix and eliquiscon tinue oxycodonec ontinue lyrica 150 mg qd and 200 mg at HS Delirium 8204503 R41.0 resolved in acute careof note she is at baseline status, she is alert and oriented. Dysphagia 06706948 R13.1 0 resolvedsh e was seen by speech in acute acute care, continue reg diet with thin liquids Toxic encephalopathy 283 91309 G92.9 resolved in acute careammoni a level 20 on 08/24 Diabetes mellitus 547381 09 E11.9 continue metformin 500 mg BIDcontinu e to monitor FS Essential hypertension 10114806 I10 continue lisinopril 5 mg dailyconti nue metoprolol 50 mg bidfurosem oxana 40 mg dailymonit or BP /labs Hypothyroidism 27413274 E03.9 continue levothyrox ine 200 mcgtsh 8- recheck labs in 6-8 weeks Hyperlipidemia 10952399 E78.49 atorvastat in 40 mg dailymonit or lipids prn Anemia 106125104 D64.9 continue ferrous sulfate 325 mg dailycont. Vit D 1000u daily Constipation 42047262 K5 9.09 continue colace 100 mg bidschedul ed miralax 17 gm daily and senna 8.6 mg daily.incr ease oral hydration Anxiety 42245912 F41.9 continue ativan 0.5 mg q6 prnpsych eval and tx- she had recent amputation , I think she will benefit from speaking with psych, she will need support coping with limp loss. [id number] MIRI NORTON [address] [place] [address] [place] [address] 08/31/2023 10:12:07 09/05/2023 16:19:16 Cough 54668999 R05.9 08/29: non productive congested cough- is not interrupti ng with sleepchest xay showed no active infiltrate s or changes ofpulmonar y venous congestion or evidence of a pleural effusion.w ill start mucinex 600 mg q12 for 7 days and re eval. Amputated below knee 299 815927 Z89.519 Critical limb ischemia of right lower extremity now s/p right below knee amputation .continue oxycodone 5 mg q 6 prnfollow up with vascular on 09/01/23PT/O T eval and treatment for conditioni ng and strengthen ing. Peripheral vascular disease 649518307 I73.9 s/p below knee amputation continue asa, plavix and eliquiscon tinue oxycodonec ontinue lyrica 150 mg qd and 200 mg at HS Essential hypertension 39691155 I10 continue lisinopril 5 mg dailyconti nue metoprolol 50 mg bidfurosem oxana 40 mg dailymonit or BP /labs Hypothyroidism 36635884 E03.9 continue levothyrox ine 200 mcgtsh 8- recheck labs in 6-8 weeks Anxiety 49942599 F41.9 continue ativan 0.5 mg q6 prnpsych eval and tx- she had recent amputation , I think she will benefit from speaking with psych, she will need support coping with limp loss.mood is stable today. [id number] MIRI NORTON [address] [address] 09/05/2023 08:59:26 09/08/2023 16:20:28 Cough 01292031 R05.9 resolved Amputated below knee 299 073466 Z89.519 right below knee amputation .continue oxycodone 5 mg q 6 prncontinu e PT/OT eval and treatment for conditioni ng and strengthen ing.contin ue wound care Betadine, dry gauze, the stump telegraph printer mechanic and the amputation shield. Peripheral vascular disease 887958032 I73.9 s/p below knee amputation continue asa, plavix and eliquiscon tinue oxycodonec ontinue lyrica 150 mg qd and 200 mg at HS Essential hypertension 27896684 I10 continue lisinopril 5 mg dailyconti nue metoprolol 50 mg bidfurosem oxana 40 mg dailymonit or BP /labs Hypothyroidism 66957690 E03.9 continue levothyrox ine 200 mcgtsh 8- recheck labs in 6-8 weeks Anxiety 34813006 F41.9 continue ativan 0.5 mg q6 prnshe was seen by psychiatric nurse who is recommendi ng starting duloxetine , benfits discuused ,patient will like to think about it. Carotid ar dahlia stenosis 74277904 I65.29 stent placement in juner. Amanda would like her on aspirin and plavix for 3 months post op, then can resume aspirin and eliquis.Sh e will need a carotid duplex later on this summer to recheck the right carotid, determine whether to reinterven e on the stent. [id number] MIRI NORTON JOSEY [address] [place] [address] 09/07/2023 11:22:32 09/09/2023 08:57:56 Amputated below knee 234902746 Z89.519 right below knee amputation .continue oxycodone 5 mg q 6 prncontinu e PT/OT eval and treatment for conditioni ng and strengthen ing.contin ue wound care Betadine, dry gauze, the stump telegraph printer mechanic and the amputation shield. Peripheral vascular disease 923933279 I73.9 s/p below knee amputation continue asa, plavix and eliquiscon tinue oxycodonec ontinue lyrica 150 mg qd and 200 mg at HS Essential hypertension 89553054 I10 continue lisinopril 5 mg dailyconti nue metoprolol 50 mg bidfurosem oxana 40 mg dailymonit or BP /labs Hypothyroidism 09694678 E03.9 continue levothyrox ine 200 mcgtsh 8- recheck labs in 6-8 weeks Anxiety 31901230 F41.9 continue ativan 0.5 mg q6 prnshe was seen by psychiatric nurse who is recommendi ng starting duloxetine , benfits discuused ,patient will like to think about it. Carotid ar dahlia stenosis 76001127 I65.29 stent placement in juner. Marecki would like her on aspirin and plavix for 3 months post op, then can resume aspirin and eliquis.Sh e will need a carotid duplex later on this summer to recheck the right carotid, determine whether to reinterven e on the stent. [id number] MIRI NORTON [facility] JOSEY [address] [place] [address] 09/12/2023 11:21:52 09/14/2023 16:46:41 Amputated below knee 192423369 Z89.519 right below knee amputation .continue oxycodone 5 mg q 6 prncontinu e PT/OT eval and treatment for conditioni ng and strengthen ing.contin ue wound care Betadine, dry gauze, the stump telegraph printer mechanic and the amputation shield. Peripheral vascular disease 719690495 I73.9 s/p below knee amputation continue asa, plavix and eliquiscon tinue oxycodone Q 6continue lyrica 150 mg qd and 200 mg at HS Essential hypertension 22310514 I10 continue lisinopril 5 mg dailyconti nue metoprolol 50 mg bidfurosem oxana 40 mg dailymonit or BP /labs Hypothyroidism 18792011 E03.9 continue levothyrox ine 200 mcgtsh 8- recheck labs in 6-8 weeks Constipation 07652169 K5 9.09 she reports that she has [...] evening, will order imaging.in crease oral hydration [id number] MIRI NORTON VINI DOWLING [address] [place] [address] 09/15/2023 09:07:09 09/21/2023 10:30:12 Amputated below knee 066797542 Z89.519 right below knee amputation .continue oxycodone 5 mg q 6 prncontinu e PT/OT eval and treatment for conditioni ng and strengthen ing.contin ue wound care Betadine, dry gauze, the stump telegraph printer mechanic and the amputation shield. Peripheral vascular disease 061563129 I73.9 s/p below knee amputation continue asa, plavix and eliquiscon tinue oxycodone Q 6continue lyrica 150 mg qd and 200 mg at HS Essential hypertension 67652394 I10 continue lisinopril 5 mg dailyconti nue metoprolol 50 mg bidfurosem oxana 40 mg dailymonit or BP /labs Hypothyroidism 36155684 E03.9 labs completed on 09/06 seen today and noted with TSH 16.3 and T4 5.1she is currently taking levothyrox ine 200 mcg daily, will increase to 225 mcg and recheck 10/26 or sooner.she reports being tired at times but is not having any other sx at this time Constipation 76648659 K5 9.09 see hpinormact felipe bowel soundscont inue colace 100 mg bidcontinu e miralax 17 gm daily and increase senna 8.6 mg to BID [id number] Afia Tierney MD [address] [address] 09/19/2023 15:52:03 09/21/2023 10:49:23 Amputated below knee 667815759 Z89.511 As above. Peripheral vascular disease 253625953 I73.89 S/P right BKA.Contin ue Plavix 75 [...] stapes out then and then can start telegraph printer mechanic.P rosthetics consult when ready. Essential hypertension 10342921 I10 BP remains in good control on lisinopril 5 mg qd, metoprolol 50 mg BID, and furosemide 40 mg qdMonitor BP and labs. Hypothyroidism 56493380 E03.9 Last TSH sl. high, with nl FT4, but low FT3.Contin ue levothyrox ine 225 mcgRecheck TSH as planned. Constipation 27603790 K5 9.09 No c/o today.Cont inue bowel meds as ordered.Mo nitor bowel function. Carotid ar dahlia stenosis 04986163 I65.29 S/P stent placement in 06/2023.To be on ASA and Plavix x 3 months.The n can stop Plavix.To have repeat U/S next month [id number] MIRI NORTON [facility] [address] [place] [address] 09/22/2023 13:52:47 09/23/2023 15:18:26 Amputated below knee 037835076 Z89.519 right below knee amputation .continue oxycodone 5 mg q 6 prncontinu e PT/OT for conditioni ng and strengthen ing.contin ue wound care Betadine, dry gauze, the stump telegraph printer mechanic and the amputation shield.lupe sing states wound healing without s/sx of infection. Peripheral vascular disease 423970941 I73.9 continue asa, plavix and eliquiscon tinue oxycodone Q 6continue lyrica 150 mg qd and 200 mg at HS Essential hypertension 53851020 I10 continue lisinopril 5 mg dailyconti nue metoprolol 50 mg bidfurosem oxana 40 mg dailymonit or BP /labs Hypothyroidism 66478814 E03.9 Continue levothyrox ine 225 mcgrecheck TSH around 10/26 [id number] MIRI NORTON [facility] [address] [place] [address] 09/27/2023 11:23:38 10/18/2023 07:43:35 Amputated below knee 816980580 Z89.519 right below knee amputation .continue oxycodone 5 mg q 6 prncontinu e PT/OT for conditioni ng and strengthen ing.contin ue wound care Betadine, dry gauze, the stump telegraph printer mechanic and the amputation shield.lupe sing states wound healing without s/sx of infection. Peripheral vascular disease 974663487 I73.9 continue asa, plavix and eliquiscon tinue oxycodone Q 6continue lyrica 150 mg qd and 200 mg at HS Essential hypertension 65692257 I10 continue lisinopril 5 mg dailyconti nue metoprolol 50 mg bidfurosem oxana 40 mg dailymonit or BP /labs Hypothyroidism 72080961 E03.9 Continue levothyrox ine 225 mcgrecheck TSH around 8 Anxiety 25627853 F41.9 continue ativan 0.5 mg q6 prnshe has agreed to try antidepres santshe was started on fluoxetine 20 mg daily on 09/18will monitor mood and behavior Diabetes mellitus 828894 09 E11.9 no recent BGL, will order weekly checks.con tinue metformin 500 mg BIDcontinu e to monitor FS [id number] MIRI NORTON [address] [address] 10/04/2023 09:15:00 10/18/2023 08:13:38 Amputated below knee 795813401 Z89.519 right below knee amputation .continue oxycodone 5 mg q 6 prncontinu e PT/OT for conditioni ng and strengthen ing.contin ue wound care Betadine, dry gauze, the stump telegraph printer mechanic and the amputation shield.lupe francisco states wound healing without s/sx of infection. she will have remaining stable removed this upcoming friday 10/06. Peripheral vascular disease 713584821 I73.9 continue asa, plavix and eliquiscon tinue oxycodone Q 6continue lyrica 150 mg qd and 200 mg at HS Essential hypertension 17432758 I10 continue lisinopril 5 mg dailyconti nue metoprolol 50 mg bidfurosem oxana 40 mg dailymonit or BP /labs Hypothyroidism 89191295 E03.9 Continue levothyrox ine 225 mcgrecheck TSH around 10/26 Anxiety 91879143 F41.9 continue ativan 0.5 mg q6 prnshe has agreed to try antidepres santshe was started on fluoxetine 20 mg daily on 09/18will monitor mood and behavior Diabetes mellitus 862523 09 E11.9 no recent BGL, will order weekly checks.con tinue metformin 500 mg BIDcontinu e to monitor FS7/724 BGL 120 [id number] MIRI NORTON [address] [address] 10/06/2023 08:54:05 10/18/2023 08:26:39 Amputated below knee 534875273 Z89.519 right below knee amputation .continue oxycodone 5 mg q 6 prn- will change to 24 prn and eventually stop of noted she has not used in 3 days.galindo nue PT/OT for conditioni ng and strengthen ing.contin ue wound care Betadine, dry gauze, the stump telegraph printer mechanic and the amputation shield.wou nd healing without s/sx of infection. she will have remaining nehemias removed this upcoming friday 10/06. Peripheral vascular disease 776703092 I73.9 continue asa, plavix and eliquiscon tinue oxycodone Q 6continue lyrica 150 mg qd and 200 mg at HS Essential hypertension 98913281 I10 continue lisinopril 5 mg dailyconti nue metoprolol 50 mg bidfurosem oxana 40 mg dailymonit or BP /labs Anxiety 62557241 F41.9 continue ativan 0.5 mg q6 prnshe has agreed to try antidepres santshe was started on fluoxetine 20 mg daily on 09/18[facility] monitor mood and behavior [id number] [facility] [address] [place] [address] 10/10/2023 10:05:30 10/18/2023 09:02:23 Amputated below knee 783346040 Z89.519 right below knee amputation .remaining nehemias removed on 10/07/23- she has small superficia l open area moist and draining scant serous output. wound care for to cleanse with NS and apply aquacel cover with gauze.cont inue oxycodone 5 mg q 12 prn-contin ue PT/OT for conditioni ng and strengthen ing.contin ue wound care, the stump telegraph printer mechanic and the amputation shieldwoun d healing without s/sx of infection. Peripheral vascular disease 984627721 I73.9 continue asa, plavix and eliquiscon tinue oxycodone Q 6continue lyrica 150 mg qd and 200 mg at HS Essential hypertension 17506567 I10 BP has been underconti nue lisinopril 5 mg dailyconti nue metoprolol 50 mg bidfurosem oxana 40 mg dailymonit or BP /labs Anxiety 41101220 F41.9 continue ativan 0.5 mg q6 prnshe has agreed to try antidepres santshe was started on fluoxetine 20 mg daily on 09/18will monitor mood and behavior Carotid ar dahlia stenosis 30690929 I65.29 10/09:Histo ry of bilateral TCAR and [...] whether to reinterven e on the stent. [id number] Tere HerreraMariajose MARTINI JOSEY [address] [facility] [address] 10/14/2023 09:41:31 10/18/2023 09:28:24 Amputated below knee 077951931 Z89.519 does not need wrap. healedappl y skin prep BID nsg updated.wo rking with PTpain controlled . Vascular dementia 440733 004 F01.54 chronis stablediff iculty to recall thoughts and respond to questions. mood stablecont inue supportive caremonito r for decline. [id number] ZENOBIA BRADLEY JOSEY [address] [facility] [place] [address] 10/20/2023 09:58:42 10/22/2023 09:32:05 Amputated below knee 192517991 Z89.519 right below knee amputation .remaining nehemias removed on 10/07/23- continues to heal well.stop oxycodone 5 mg q 12 prn due to minimal usecontinu e PT/OT for conditioni ng and strengthen ing.contin ue wound care, the stump telegraph printer mechanic and the amputation shieldwoun d healing without s/sx of infection. Peripheral vascular disease 919816056 I73.9 continue asa, plavix and eliquiscon tinue lyrica 150 mg qd and 200 mg at HS for pain mgmt Essential hypertension 78682592 I10 VSS, BP soft on occasionco ntinue lisinopril 5 mg dailyconti nue metoprolol 50 mg bidfurosem oxana 40 mg dailymonit or BP /labs Anxiety 76530844 F41.9 continue ativan 0.5 mg q6 prn - occasional use, discussed with nsg. will renew for another 14 days.Dulox etine 20 mg daily recently started, orly. well so far, nsg. feels it has been helping mood and behaviors. Continue to monitorPsy ch following as well. Carotid ar dahlia stenosis 70800286 I65.29 History of bilateral TCAR and left [...] ultrasound , plavix, and follow up appt. [id number] MIRI NORTON [address] [place] [address] 10/25/2023 10:59:01 10/26/2023 15:44:22 Amputated below knee 307244049 Z89.519 right below knee amputation , continues to heal well.now open to air ,wound healing without s/sx of infection. continue tylenol and lyrica Peripheral vascular disease 985822377 I73.9 continue asa, plavix and eliquiscon tinue lyrica 150 mg qd and 200 mg at HS for pain mgmtwill discuss need to continue plavix at vascular appt 10/28/23 Essential hypertension 90616395 I10 continue lisinopril 5 mg dailyconti nue metoprolol 50 mg bidfurosem oxana 40 mg dailymonit or BP /labs Anxiety 23713618 F41.9 continue ativan 0.5 mg q6 prn - occasional use, discussed with nsg. will renew for another 14 days.Dulox etine 20 mg daily recently started, orly. well so far, nsg. feels it has been helping mood and behaviors. - seen by psychiatric nurse on 10/23 reports feeling some improvemen t with duloxetine , recommende d to continueCo ntinue to monitorPsy ch following as well. Carotid ar dahlia stenosis 43125674 I65.29 History of bilateral TCAR and left [...] will be discussed at that appointmen t. [id number] MIRI NORTON [address] [place] [address] 10/26/2023 12:11:32 10/31/2023 16:07:08 COVID-19 277460713 U07.1 see hpiwill started paxlovid, isolation precaution supportati ve treatment: with mucinex 600 mg BID for 5 dayspaxlov id as orderedprn neb tx for sob. [id number] MIRI NORTON [address] [place] [address] 10/31/2023 16:29:45 11/01/2023 13:09:54 COVID-19 581538568 U07.1 she has been stable no reportable sx notedwill received last dose of paxlovid tonightiso lation precaution continue supportati ve treatment: prn neb tx for sob. Amputated below knee 299 680409 Z89.519 right below knee amputation , continues to heal well.now open to air ,wound healing without s/sx of infection. continue tylenol and lyrica Peripheral vascular disease 385621435 I73.9 continue asa, plavix and eliquiscon tinue lyrica 150 mg qd and 200 mg at HS for pain mgmtwill discuss need to continue plavix at vascular appt 10/28/23 Essential hypertension 73988107 I10 continue lisinopril 5 mg dailyconti nue metoprolol 50 mg bidfurosem oxana 40 mg dailymonit or BP /labs Anxiety 87547663 F41.9 continue ativan 0.5 mg q6 prn -continue Duloxetine 20 mg dailymood has been good.Galindo nue to monitorPsy ch following as well. Carotid ar dahlia stenosis 21190235 I65.29 History of bilateral TCAR and left [...] will be discussed at that appointmen tCandis [id number] MIRI NORTON [address] [place] [address] rd [place]NANDEZ [address] 11/04/2023 09:52:30 11/08/2023 11:09:10 COVID-19 475412565 U07.1 completed anti-viral . Amputated below knee 299 031317 Z89.519 right below knee amputation , continues to heal well.now open to air ,wound healing without s/sx of infection. continue tylenol and lyrica Peripheral vascular disease 073488384 I73.9 continue asa, plavix and eliquis- on hold for now for melenacont inue lyrica 150 mg qd and 200 mg at HS for pain mgmt Essential hypertension 43066637 I10 continue lisinopril 5 mg dailyconti nue metoprolol 50 mg bidfurosem oxana 40 mg dailymonit or BP /labs Anxiety 89102316 F41.9 continue ativan 0.5 mg q6 prn -continue Duloxetine 20 mg dailyConti nue to monitorPsy ch following as well. Carotid ar dahlia stenosis 69343012 I65.29 History of bilateral TCAR and left [...] be discussed at that appointmen tCandis Chamberlain 6364058 K92.1 11/02: nursing report black tarry stool, [...] hematemesi s, weakness, dizziness and or pallor. [id number] MIRI NORTON [address] [place] [address] [place] [address] 11/07/2023 08:49:06 11/09/2023 10:55:24 Melena 0797331 K92.1 11/06: continue to have black tarry [...] s, weakness, dizziness and or pallor. Anemia 134326128 D64.9 H/H trending down today noted at 09/12-signi ficant drop in 7 days tested 3 times. continue ferrous sulfate 325 mg dailycont. Vit D 1000u daily [id number] ZENOBIA Ulloa [address] [place] [address] [place] [address] 11/12/2023 07:51:13 11/18/2023 09:17:41 Anemia 277409655 D64.9 per [facility] summary: Held Eliquis, aspirin and Plavix since [...] obtained with hemoglobin 6 on admission to [facility],No reports of blood in stool or melena [...] bmp weekly on mondays x 3 Esophagitis 32247125 K20 .90 no melena noted in hospital, [...] bmp weekly on mondays x 3 Anxiety 78327259 F41.9 while in hopsital her ativan 0.5 mg q6 prn was discontinu edcontinue Duloxetine 20 mg dailyConti nue to monitorPsy ch following as well. Hypothyroidism 04616007 E03.9 adjusted in hospitalco nt levothyrox ine 200 mcg po dailyreche ck tsh in 8 weeksmonit or Essential hypertension 93734374 I10 bp initially soft in hospital, lisinopril was held, now resolved and resumedcon tlisinopri l 5 mg po dailymetop rolol 50 mg po q 12 hoursmonit or Amputated below knee 299 880819 Z89.519 right below knee amputation , continues to heal well.galindo nue tylenol and lyricafu with vascular as planned Peripheral vascular disease 776407867 I73.9 eliquis on holdcontin ueasa, plavixlyri ca 150 mg qdmonitor Pressure i njury of coccygeal region of back stage II 6378097715 2092098 L89.152 healing denuded skin to right coccyx11/11 apply barrier cream topically bid and prnfrequen t brief changes and reposition ingmonitor for infection Vascular dementia 523501 004 F01.54 stablediff iculty to recall thoughts and respond to questions at baseline per staffmood stablecont inue supportive caremonito r for decline. [id number] MIRI NORTON [address] [place] [address] [place] [address] 11/14/2023 09:54:52 11/18/2023 10:04:39 Esophagitis 55303500 K20.90 no melena noted in hospital, but [...] bmp weekly on mondays x 3 Anemia 287300714 D64.9 per [facility] summary: Held Eliquis, aspirin and Plavix since [...] obtained with hemoglobin 6 on admission to [facility],No reports of blood in stool or melena [...] bmp weekly on mondays x 3 Anxiety 41558986 F41.9 while in hopsital her ativan 0.5 mg q6 prn was discontinu edcontinue Duloxetine 20 mg dailyConti nue to monitorPsy ch following as well. 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 [id number] MIRI NORTON [address] [address] 11/17/2023 14:04:30 11/23/2023 09:14:45 Anxiety 34273009 F41.9 stableDulo xetine 20 mg dailyConti nue to monitorPsy ch following as well. Hypothyroidism 42652662 E03.9 adjusted in hospitalco nt levothyrox ine 200 mcg po dailyreche ck tsh in 8 weeksmonit or Essential hypertension 12944748 I10 stable-lis inopril 5 mg po dailymetop rolol 50 mg po q 12 hoursmonit or Amputated below knee 299 247069 Z89.519 right below knee amputation , continues to heal well.galindo nue tylenol and lyricafu with vascular as planned Peripheral vascular disease 538986769 I73.9 eliquis stoppedcon tinue:asa, plavixlyri ca 150 mg qdmonitor Vascular dementia 986034 [address] declinebas sahara difficulty with word findingmoo d stablecont inue supportive caremonito r for decline. Anemia 856584703 D64.9 continuefe rrous sulfate 325 mg dailycont. Vit D 1000u dailymonit or cbc and bmp weekly on mondays x 3 [id number] MIRI NORTON [address] [address] 11/21/2023 11:10:23 11/23/2023 10:20:09 Anxiety 29696145 F41.9 stableDulo xetine 20 mg dailyConti nue to monitorPsy ch following as well. Hypothyroidism 08168796 E03.9 adjusted in hospitalco nt levothyrox ine 200 mcg po dailyreche ck tsh in 8 weeksmonit or Essential hypertension 28725712 I10 stable-lis inopril 5 mg po dailymetop rolol 50 mg po q 12 hoursmonit or Amputated below knee 299 484425 Z89.519 right below knee amputation , continues to heal well.galindo nue tylenol and lyricafu with vascular as planned Peripheral vascular disease 980358440 I73.9 eliquis stoppedcon tinue:asa, plavixlyri ca 150 mg qdmonitor Vascular dementia 721314 [address] declinebas sahara difficulty with word findingmoo d stablecont inue supportive caremonito r for decline. Anemia 903422978 D64.9 continuefe rrous sulfate 325 mg dailycont. Vit D 1000u dailymonit or cbc and bmp weekly on mondays x 3 [id number] MIRI NORTON [address] [address] 11/29/2023 10:14:07 12/01/2023 14:32:41 Anxiety 42735416 F41.9 stablecont inue duloxetine 20 mg daily- she is having a positive response with med.Contin ue to monitorupd ate HDBH with concerns. Hypothyroidism 84928883 E03.9 adjusted in hospitalco nt levothyrox ine 200 mcg po dailyreche ck tsh in 8 weeks- ord for . 11/18monito r Essential hypertension 15920630 I10 continue lisinopril 5 mg po dailyconti nue metoprolol 50 mg po q 12 hoursmonit or Amputated below knee 299 007372 Z89.519 right below knee amputation , continues to heal well.galindo nue tylenol and lyricafu with vascular as planned Peripheral vascular disease 357469349 I73.9 eliquis stoppedcon tinue:asa, plavixlyri ca 150 mg qdmonitor Vascular dementia 981405 004 F01.54 expect declinebas sahara difficulty with word findingmoo d stablecont inue supportive caremonito r for decline. Anemia 760938063 D64.9 continuefe rrous sulfate 325 mg dailycont. Vit D 1000u dailymonit or cbc and bmp weekly on mondays x 39/3: H/H has been stable increasing every week. [id number] MIRI NORTON [address] [address] 12/01/2023 11:44:42 12/05/2023 13:22:49 Amputated below knee 476902521 Z89.519 right below knee amputation open wound noted on stump concerning for infection, yellowish drainage noted on dressing ,will send culture.co ntinue tylenol and lyricafu with vascular as planned Peripheral vascular disease 949796741 I73.9 eliquis stoppedcon tinue:asa, plavixlyri ca 150 mg qdmonitor Vascular dementia 211650 004 F01.54 expect declinebas sahara difficulty with word findingmoo d stablecont inue supportive caremonito r for decline. [id number] MIRI NORTON [address] [address] 12/05/2023 09:49:14 12/07/2023 10:15:18 Amputated below knee 643791447 Z89.519 right below knee amputation wound culture pendingcon tinue tylenol and lyricafu with vascular as planned Peripheral vascular disease 853469054 I73.9 eliquis stoppedcon tinue:asa, plavixlyri ca 150 mg qdmonitor Vascular dementia 692795 004 F01.54 expect declinebas sahara difficulty with word findingmoo d stablecont inue supportive caremonito r for decline. [id number] MIRI NORTON [address] [address] 12/12/2023 08:48:56 12/14/2023 08:51:51 Amputated below knee [id number] Z89.519 right below knee amputation continue tylenol and lyricafu with vascular as planned on 12/16/23 Peripheral vascular disease [id number] I73.9 eliquis stoppedcon tinue:asa, plavixlyri ca 150 mg qdmonitor Vascular dementia 536084 004 F01.54 expect declinebas sahara difficulty with word findingmoo d stablecont inue supportive caremonito r for decline. Subconjunc tival hemorrhage of left eye [id number] 03901 H11.32 no pain or visual changesnur sing to update provider for changes in vision, pain or discharge. can apply warm compress for comfort if irritated. 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 Peripheral vascular disease [id number] I73.9 12/15 carotid duplex shows 70 to 99% stenosis in her right ICA, this is s/p TCAR and she has a patent stent. Her left side shows 1 to 49% stenosis in the ICA with a patent stent.repe at duplex in 6 months eliquis stoppedcon tinue:asa, plavixlyri ca 150 mg qdmonitor Vascular dementia 336401 004 F01.54 expect declinebas sahara difficulty with word findingmoo d stablecont inue supportive caremonito r for decline. Subconjunc tival hemorrhage of left eye [id number] 61441 H11.32 resolvingn o pain or visual changesnur sing to update provider for changes in vision, pain or discharge. can apply warm compress for comfort if irritated. monitor for worsening sx, pt is on asa and plavix daily.H/H stable , will continue to monitor Insomnia 623019967 G47.0 0 see HPIstop melatonins tart trazodone 50 mg at HSmonitor for effectiven ess [id number] MIRI NORTON VINI JOSEY [address] [facility] [place] [address] 12/22/2023 11:08:23 12/23/2023 12:52:01 Amputated below knee 916943882 Z89.519 right below knee amputation continue tylenol [...] and promote wound healing. Peripheral vascular disease 277845049 I73.9 12/15 carotid duplex shows 70 to [...] plavixlyri ca 150 mg qdmonitor Vascular dementia 627259 004 F01.54 expect declinebas sahara difficulty with word findingmoo d stablecont inue supportive caremonito r for decline. Subconjunc tival hemorrhage of left eye 9625416880 69025 H11.32 resolvingn o pain or visual changesnur sing to update provider for changes in vision, pain or discharge. can apply warm compress for comfort if irritated. monitor for worsening sx, pt is on asa and plavix daily.H/H stable , will continue to monitor Insomnia 952630992 G47.0 0 continue trazodone 50 mg at HS- will reassess at next visit.prakash cat for effectiven essdiscuss ed with patient avoiding caffeine drinks before bed, antidepres nuria and BP meds can causes insomnia. we discussed trying relaxation techniques such as deep breathing and guided imagery. [id number] MIRI NORTON 36 [facility] [place] [address] 12/27/2023 14:42:28 12/28/2023 11:41:01 Amputated below knee 185736735 Z89.519 right below knee amputation continue tylenol [...] and promote wound healing. Peripheral vascular disease 470525928 I73.9 12/15 carotid duplex shows 70 to [...] plavixlyri ca 150 mg qdmonitor Vascular dementia 090437 004 F01.54 expect declinebas sahara difficulty with word findingmoo d stablecont inue supportive caremonito r for decline. Subconjunc tival hemorrhage of left eye 8395111008 14782 H11.32 resolvingn o pain or visual changesnur sing to update provider for changes in vision, pain or discharge. can apply warm compress for comfort if irritated. monitor for worsening sx, pt is on asa and plavix daily.H/H stable , will continue to monitor Insomnia 962240767 G47.0 0 continue trazodone 50 mg at HS- will reassess at next visit.prakash cat for effectiven essdiscuss ed with patient avoiding caffeine drinks before bed, antidepres nuria and BP meds can causes insomnia. we discussed trying relaxation techniques such as deep breathing and guided imagery. [id number] MIRI NORTON [address] [place] [address] 01/02/2024 08:33:03 01/03/2024 11:47:07 Amputated below knee 183474462 Z89.519 followed closely by vascular.r ight below [...] and promote wound healing. Peripheral vascular disease 652459927 I73.9 12/15 carotid duplex shows 70 to [...] plavixlyri ca 150 mg qdmonitor Vascular dementia 291705 [address] declinebas sahara difficulty with word findingmoo d stablecont inue supportive caremonito r for decline. Subconjunc tival hemorrhage of left eye 5636409654 85501 H11.32 resolvingn o pain or visual changesnur sing to update provider for changes in vision, pain or discharge. can apply warm compress for comfort if irritated. monitor for worsening sx, pt is on asa and plavix daily.H/H stable , will continue to monitor Insomnia 852001622 G47.0 0 continue trazodone 50 mg at [...] Date Sequence Insurance Name Policy Number Policy Aimn Covered Member ID Amin Member ID Guarantor Name 12/28/2023 2 [place] [facility] Marixa Chan [id number] Marixa Chan 12/27/2023 1 [place] B[place] [employer] Marixa Chan [id number] Marixa Chan Notes Date Note Type Note [...] for acute rounding visit MIRI NORTON [address] [facility], [facility] [address], [place], [address], [employer] 12/12/2023 14:39:04 12/19/2023 text/html ROS as noted [...] playing television all night. MIRI NORTON [address] [facility], [address], [place], [address], [employer] 12/20/2023 15:35:55 12/22/2023 text/html ROS as noted [...] have a stump strinker. MIRI NORTON 38 [facility] [address], [place], [address], [facility] [employer] 12/22/2023 16:22:53 12/27/2023 text/html ROS as noted [...] not have a stump strinker. MIRI NORTON [address] [place] [address] [address], [place], [address], [facility] [employer] 12/27/2023 15:20:31 01/02/2024 text/html ROS as noted [...] have a stump strinker. MIRI NORTON 38 [facility], [facility] [address], [place], [address], [facility] [employer] 01/02/2024 13:22:00 OBGyn Episode No OBEpisode recorded.
--- OUTSIDE RECORDS SUMMARY | 2025-02-04 05:41 | XMS_ITS | Encounter Summary ---
Author Organization [facility] Address [address] [place] [address] Phone Care Team Providers Care Interface Developer Name Role Phone Agueda Ann MD Primary Care Provider [phone] Andie Rossi MD Unavailable West Doll MD Unavailable [phone] Britany Coles MD Unavailable [phone] Naun Hoang MD Unavailable + Agueda Ann MD Unavailable Mely Bhatti RN Unavailable [email or web address] Encounter Details Date Type Department Care Team (Late st Contact Info) Description 12/24/2022 Procedure Pass [facility], Ct Scan - [facility] 30 [place] [address] Social History Tobacco Use Types Packs/Day Years [...] high school, GED, job training, learning the Ethiopian language, technical skills, or developing parenting skills)? [...] 9:29 AM ALEKT Natalya Delgadillo RN * [place] Suicide Severity Rating Scale (Screener/Recent Self-Report) Question [...] documented as of this encounter Care Teams Interface Developer Relationship Specialty Start Date End Date Agueda Ann MD [address] [address] [email or web address] PCP - General Family Medicine 02/01/19 Andie Rossi MD [address] [place] [address] Neurology 03/02/19 West Doll MD [address] [place] [address] 104 [place] [address] Cardiology 03/02/19 Britany Coles MD [address] [place] [address] 140 [place] [address] [email or web address] [email or web address] Surgery 03/02/19 Naun Hoang MD [address] [place] [address] Infectious Diseases 03/02/19 Agueda Ann MD [address] [address] [email or web address] Insurance Assigned Provider 07/02/23 04/02/24 Mely Bhatti, NICOLE [address] [address] [email or web address] [email or web address] 05/12/23 06/09/23 documented as of this encounter Additional Source Comments The information contained in this document represents components of the legal health record. It is not the complete legal health record.[facility]
--- OUTSIDE RECORDS SUMMARY | 2025-02-04 05:41 | XMS_ITS | Patient Health Record ---
Author Organization [facility] Billing Info Address [address] [place] [address] Care Team Providers Care Fire Lookout Name Role Phone BARTOLO Dunbar Unavailable [phone] Reason For Referral No Information Plan Of Treatment No Information
[2025-02-04 05:53] LABS: Hematocrit 26.0 % (37.0-47.0); Hemoglobin 7.7 g/dl (12.0-16.0); Imm Gran Abs Auto 0.02 X10*3/uL (0.00-0.03); Imm Gran Pct Auto 0.3 % (0.0-0.4); Lymphocytes Absolute Auto 2.3 X10*3/uL (1.2-4.9); Mean Corpuscular HGB Conc 29.6 g/dl (31.0-35.0); Mean Corpuscular Hemoglobin 25.7 pg (27.0-33.0); Mean Corpuscular Volume 86.7 fL (80.0-98.0); NRBC Abs Auto 0.000 X10*3/uL (0.0-0.012); NRBC Pct Auto 0.0 /100WBC (0.0-0.2); Platelet Count 316 X10*3/uL (160-400); Red Blood Count 3.00 X10*6/uL (4.20-5.50); White Blood Count 7.3 X10*3/uL (4.8-10.8)
[2025-02-04 06:08] LABS: Anion Gap 13 (12-20); Blood Urea Nitrogen 36 mg/dL (9-16); Calcium 8.6 mg/dL (8.4-10.2); Carbon Dioxide 20 mmol/L (22-29); Chloride 111 mmol/L (96-108); Estimated Glomerular Filt Rate 36; Potassium 5.1 mmol/L (3.3-5.1); Sodium 139 mmol/L (135-145)
== END 2025-02-04 05:30 | disposition home or self-care (01) ==
LOC: HO.MMNH3L 05:29
PROVIDERS: Visit Provider Student in an Organized Health Care Education/Training Program
DX: I69.398 Other sequelae of cerebral infarction (principal); I25.9 Chronic ischemic heart disease, unspecified; E03.9 Hypothyroidism, unspecified; Z89.611 Acquired absence of right leg above knee
CPT/HCPCS: 36415; 80048; 85025

== ENCOUNTER 2025-02-11 06:54 | Outpatient (REF) | payer MEDICARE, MEDICAID, SELFPAY ==
[2025-02-11 05:43] LABS: MANUAL DIFF FLAG NO
[2025-02-11 06:01] LABS: Hematocrit 28.0 % (37.0-47.0); Hemoglobin 8.6 g/dl (12.0-16.0); Imm Gran Abs Auto 0.02 X10*3/uL (0.00-0.03); Imm Gran Pct Auto 0.3 % (0.0-0.4); Lymphocytes Absolute Auto 2.3 X10*3/uL (1.2-4.9); Mean Corpuscular HGB Conc 30.7 g/dl (31.0-35.0); Mean Corpuscular Hemoglobin 26.1 pg (27.0-33.0); Mean Corpuscular Volume 84.8 fL (80.0-98.0); NRBC Abs Auto 0.000 X10*3/uL (0.0-0.012); NRBC Pct Auto 0.0 /100WBC (0.0-0.2); Platelet Count 322 X10*3/uL (160-400); Red Blood Count 3.30 X10*6/uL (4.20-5.50); White Blood Count 8.0 X10*3/uL (4.8-10.8)
[2025-02-11 06:22] LABS: Anion Gap 15 (12-20); Blood Urea Nitrogen 36 mg/dL (9-16); Calcium 8.8 mg/dL (8.4-10.2); Carbon Dioxide 18 mmol/L (22-29); Chloride 109 mmol/L (96-108); Estimated Glomerular Filt Rate 48; Potassium 4.8 mmol/L (3.3-5.1); Sodium 137 mmol/L (135-145)
--- OUTSIDE RECORDS SUMMARY | 2025-02-11 07:00 | XMS_ITS | Clinical Summary ---
Author Organization [address] Address [address] [place] [address] Care Team Providers Care Hands Assembler Name Role Phone Unavailable Primary Care [...]
--- OUTSIDE RECORDS SUMMARY | 2025-02-11 07:00 | XMS_ITS | Clinical Summary ---
Author Organization [facility] it Address [address] [place] [address] Care Team Providers Care Learning Analyst Name Role Phone Unavailable Primary Care [...]
--- OUTSIDE RECORDS SUMMARY | 2025-02-11 07:01 | XMS_ITS | Encounter Summary ---
Author Organization [facility] Address [address] [place] [address] Phone Care Team Providers Care Game Designer/Creative Director Name Role Phone Agueda Ann MD Primary Care Provider Andie Rossi MD Unavailable West Doll MD Unavailable [phone] Britany Coles MD Unavailable [phone] Naun Hoang MD Unavailable + Agueda Ann MD Unavailable Latosha Garcia OT Unavailable [phone] Mely Bhatti RN Unavailable [email or web address] Encounter Details Date Type Department Care Team (Late st Contact Info) Description 11/18/2022 Procedure Pass [facility] 30 [place] [address] Social History Tobacco Use Types Packs/Day Years [...] high school, GED, job training, learning the Liberian language, technical skills, or developing parenting skills)? [...] documented as of this encounter Care Teams Game Designer/Creative Director Relationship Specialty Start Date End Date Agueda Ann MD [address] [place] [address] PCP - General Family Medicine 02/01/19 Andie Rossi MD 48 [place] [address] Neurology 03/02/19 West Doll MD [address] [place] [address] 104 [place] [address] Cardiology 03/02/19 Britany Coles MD [facility] 140 [place] [address] [email or web address] Surgery 03/02/19 [place] [address] [place] [address] Infectious Diseases 03/02/19 Agueda Ann MD [address] [address] [email or web address] Insurance Assigned Provider 07/02/23 04/02/24 Latosha Garcia, OT 30 [place] [address] [email or web address] Transitions Acetone Recovery WorkerTone Regulator Therapy 11/24/22 11/25/22 Mely Bhatti, NICOLE 30 [place] [address] [email or web address] Acetone Recovery Worker 05/12/23 06/09/23 documented as of this encounter Additional Source Comments The information contained in this document represents components of the legal health record. It is not the complete legal health record.[facility]
--- OUTSIDE RECORDS SUMMARY | 2025-02-11 07:01 | XMS_ITS | Encounter Summary ---
Author Organization [employer] Address [address] [facility] 7t [place] [address] Care Team Providers Care Wic Site Coordinator Name Role Phone Unavailable Primary Care Provider Unavailabl e Encounter Details Date Type Department Care Team (Latest Contact Info) Description 07/09/2020 Abstract [facility] CONVERSIONS Dental, Provider, DDS Social [...]
--- OUTSIDE RECORDS SUMMARY | 2025-02-11 07:01 | XMS_ITS | Encounter Summary ---
Author Organization [facility] Address [address] [place] [address] Phone Care Team Providers Care Neurology Manager Name Role Phone Agueda Ann MD Primary Care Provider [phone] Andie Rossi MD Unavailable West Doll MD Unavailable Britany Coles MD Unavailable [phone] Naun Hoang MD Unavailable + Agueda Ann MD Unavailable Mely Bhatti RN Unavailable [email or web address] Encounter Details Date Type Department Care Team (Late st Contact Info) Description 12/24/2022 Procedure Pass [facility], Ct Scan - [facility] 30 [place] [address] Social History Tobacco Use Types Packs/Day Years [...] 9:29 AM ALEKT Natalya Delgadillo RN * [place] Suicide Severity Rating Scale (Screener/Recent Self-Report) Question [...] documented as of this encounter Care Teams Neurology Manager Relationship Specialty Start Date End Date Agueda Ann MD [address] [address] [email or web address] PCP - General Family Medicine 02/01/19 Andie Rossi MD [address] [place] [address] Neurology 03/02/19 West Doll MD [address] [place] [address] 104 [place] [address] Cardiology 03/02/19 Britany Coles MD [address] [place] [address] 140 [place] [phone] [email or web address] [email or web address] Surgery 03/02/19 Naun Hoang MD [address] [place] [address] Infectious Diseases 03/02/19 Agueda Ann MD [address] [address] [email or web address] Insurance Assigned Provider 07/02/23 04/02/24 Mely Bhatti, NICOLE [address] [address] [email or web address] 05/12/23 06/09/23 documented as of this encounter Additional Source Comments The information contained in this document represents components of the legal health record. It is not the complete legal health record.[facility]
--- OUTSIDE RECORDS SUMMARY | 2025-02-11 07:01 | XMS_ITS | Encounter Summary ---
Author Organization [employer] Address [address] [facility] 7t [place] [address] Care Team Providers Care Business Banking Representative Name Role Phone Unavailable Primary Care Provider Unavailabl e Encounter Details Date Type Department Care Team (Latest Contact Info) Description 06/29/2021 Abstract [facility] CONVERSIONS Dental, Provider, DDS Social [...]
--- OUTSIDE RECORDS SUMMARY | 2025-02-11 07:01 | XMS_ITS | Encounter Summary ---
Author Organization [facility] Address [address] [place] [address] Phone Care Team Providers Care Velvet Weaver Name Role Phone Agueda nAn MD Primary Care Provider [phone] Andie Rossi MD Unavailable [phone] West Doll MD Unavailable [phone] Britany Coles MD Unavailable Naun Hoang MD Unavailable + Agueda Ann MD Unavailable Latosha Garcia OT Unavailable [phone] Latosha Garcia OT Unavailable [phone] Mely Bhatti RN Unavailable [email or web address] Encounter Details Date Type Department Care Team (Late st Contact Info) Description 07/31/2021 Procedure Pass [facility] Endoscopy Admitting Dept Virtual Department 30 [place] [address] Social History Tobacco Use Types Packs/Day Years [...] documented as of this encounter Care Teams Velvet Weaver Relationship Specialty Start Date End Date Agueda Ann MD [address] [place] [address] PCP - General Family Medicine 02/01/19 Andie Rossi MD [address] [place] [address] Neurology 03/02/19 West Doll MD [address] [place] [address] Cardiology 03/02/19 Britany Coles MD [facility] 140 [place] [address] [email or web address] [email or web address] Surgery 03/02/19 Naun Hoang MD [address] [facility] [address] [place] [address] Infectious Diseases 03/02/19 Agueda Ann MD [address] [address] [email or web address] Insurance Assigned Provider 07/02/23 04/02/24 Latosha Garcia, OT 30 [place] [address] [email or web address] Transitions Machine Set Up Operator Paper GoodsIntrusion Analyst Therapy 11/05/22 11/07/22 Latosha Garcia, OT 30 [place] [address] [email or web address] Transitions Machine Set Up Operator Paper GoodsIntrusion Analyst Therapy 11/24/22 11/25/22 Mely Bhatti RN 30 [place] [address] [email or web address] Machine Set Up Operator Paper Goods 05/12/23 06/09/23 documented as of this encounter Additional Source Comments The information contained in this document represents components of the legal health record. It is not the complete legal health record.[facility]
--- OUTSIDE RECORDS SUMMARY | 2025-02-11 07:01 | XMS_ITS | Patient Health Record ---
Author Organization [facility] Billing Info Address [address] [place] [address] Care Team Providers Care Division Supervisor Name Role Phone BARTOLO Dunbar Unavailable [phone] Reason For Referral No Information Plan Of Treatment No Information
--- OUTSIDE RECORDS SUMMARY | 2025-02-11 07:01 | XMS_ITS | Encounter Summary ---
Author Organization [employer] Address [address] [facility] [address] 7t [place] [address] Care Team Providers Care Director Safety Council Name Role Phone Unavailable Primary Care Provider Unavailabl e Reason for Visit * Reason Onset Date Comments medical clearance 05/27/2022 Encounter Details Date Type Department Care Team (Late st Contact Info) Description 05/27/[address] [facility] [address] [place] [address] Davonte Cunningham DDS medical clearance Social History [...] was for medical clearance. Pls re send [phone] * Telephone Encounter - Lucina Leigh - [...] was for medical clearance. Pls re send [phone] documented in this encounter Plan of Treatment Not on file documented as of this encounter Visit Diagnoses Not on filedocumented in this encounter
--- OUTSIDE RECORDS SUMMARY | 2025-02-11 07:01 | XMS_ITS | Encounter Summary ---
Author Organization [facility] Address [address] [place] [address] Phone Care Team Providers Care Director Data Processing Name Role Phone Agueda Ann MD Primary Care Provider [phone] Andie Rossi MD Unavailable [phone] West Doll MD Unavailable [phone] Britany Coles MD Unavailable Naun Hoang MD Unavailable + Agueda Ann MD Unavailable Mely Bhatti RN Unavailable [email or web address] Encounter Details Date Type Department Care Team (Late st Contact Info) Description 12/24/2022 Procedure Pass [facility] 30 [place] [address] Social History Tobacco Use Types Packs/Day Years [...] high school, GED, job training, learning the Bolivian language, technical skills, or developing parenting skills)? [...] 12/24/2022 9:29 AM Natalya Menon, NICOLE * [place] Suicide Severity Rating Scale (Screener/Recent Self-Report) Question [...] as of this encounter Care Teams Director Data Processing Relationship Specialty Start Date End Date Agueda Ann MD [address] [address] [email or web address] PCP - General Family Medicine 02/01/19 Andie Rossi MD [address] [place] [address] Neurology 03/02/19 West Doll MD [address] [place] [address] 104 [place] [address] Cardiology 03/02/19 Britany Coles MD [address] [place] [address] 140 [place] [phone] Orthopedic Surgery 03/02/19 Naun Hoang MD [address] [place] [address] Infectious Diseases 03/02/19 Agueda Ann MD [address] [address] [email or web address] Insurance Assigned Provider 4/6/24 1/6/25 Mely Bhatti, RN [address] [place] [address] [email or web address] Automobile Assembly Supervisor 05/12/23 06/09/23 documented as of this encounter Additional Source Comments The information contained in this document represents components of the legal health record. It is not the complete legal health record.[facility]
--- OUTSIDE RECORDS SUMMARY | 2025-02-11 07:01 | XMS_ITS | Encounter Summary ---
Author Organization [facility] Address [address] [place] [address] Phone Care Team Providers Care Insurance Application Investigator Name Role Phone Agueda Ann MD Primary Care Provider [phone] Andie Rossi MD Unavailable [phone] West Doll MD Unavailable Britany Coles MD Unavailable [phone] Naun Hoang MD Unavailable + Agueda Ann MD Unavailable Latosha Garcia OT Unavailable [phone] Latosha Garcia OT Unavailable [phone] Mely Bhatti RN Unavailable [email or web address] Encounter Details Date Type Department Care Team (Late st Contact Info) Description 11/04/2022 Procedure Pass [facility] 30 [place] [address] Social History Tobacco Use Types Packs/Day Years [...] high school, GED, job training, learning the Bahamian language, technical skills, or developing parenting skills)? [...] 11/04/2022 1:06 AM Lucita Hirsch, NICOLE * [place] Suicide Severity Rating Scale (Screener/Recent Self-Report) Question [...] documented as of this encounter Care Teams Insurance Application Investigator Relationship Specialty Start Date End Date Agueda Ann MD [address] [address] [email or web address] PCP - General Family Medicine 02/01/19 Andie Rossi MD [address] [place] [address] Neurology 03/02/19 West Doll MD [address] [place] [address] 104 [place] [address] Cardiology 03/02/19 Britany Coles MD [address] [place] [address] 140 [place] [phone] [email or web address] 03/02/19 Naun Hoang MD [address] [place] [address] Infectious Diseases 03/02/19 Agueda Ann MD [address] [address] [email or web address] Insurance Assigned Provider 07/02/23 04/02/24 Latosha Garcia, OT 30 [place] [address] [email or web address] Transitions Meter/Relay TechnicianSenior Pricing Analyst Therapy 11/05/22 11/07/22 Latosha Garcia, OT 30 [place] [address] [email or web address] Transitions Meter/Relay TechnicianSenior Pricing Analyst Therapy 11/24/22 11/25/22 Mely Bhatti RN 30 [place] [address] [email or web address] Meter/Relay Technician 05/12/23 06/09/23 documented as of this encounter Additional Source Comments The information contained in this document represents components of the legal health record. It is not the complete legal health record.[facility]
--- OUTSIDE RECORDS SUMMARY | 2025-02-11 07:01 | XMS_ITS | Encounter Summary ---
Author Organization [employer] Address [address] [facility] 7t [place] [address] Care Team Providers Care Network Intelligence Analyst Name Role Phone Unavailable Primary Care Provider Unavailabl e Encounter Details Date Type Department Care Team (Latest Contact Info) Description 05/02/2018 Abstract [facility] CONVERSIONS Dental, Provider, DDS Social History [...]
--- OUTSIDE RECORDS SUMMARY | 2025-02-11 07:01 | XMS_ITS | Encounter Summary ---
Author Organization [facility] Address [address] [place] [address] Phone Care Team Providers Care Hospital Scientist Name Role Phone Agueda Ann MD Primary Care Provider [phone] Andie Rossi MD Unavailable [phone] West Doll MD Unavailable [phone] Britany Coles MD Unavailable Naun Hoang MD Unavailable + Agueda Ann MD Unavailable Mely Bhatti RN Unavailable [email or web address] Encounter Details Date Type Department Care Team (Late st Contact Info) Description 12/24/2022 Procedure Pass [facility], [facility] [address] [place] [address] Social History Tobacco Use Types Packs/Day Years [...] high school, GED, job training, learning the Israeli language, technical skills, or developing parenting skills)? [...] 9:29 AM ALEKT Natalya Delgadillo RN * [place] Suicide Severity Rating Scale (Screener/Recent Self-Report) Question [...] documented as of this encounter Care Teams Hospital Scientist Relationship Specialty Start Date End Date Agueda Ann MD [address] [address] [email or web address] PCP - General Family Medicine 02/01/19 Andie Rossi MD [address] [place] [address] Neurology 03/02/19 West Doll MD [address] [place] [address] 104 [place] [address] Cardiology 03/02/19 Britany Coles MD [address] [place] [address] 140 [place] [phone] [email or web address] 03/02/19 Naun Hoang MD [address] [place] [address] Infectious Diseases 03/02/19 Agueda Ann MD [address] [address] [email or web address] Insurance Assigned Provider 07/02/23 04/02/24 Mely Bhatti, NICOLE [address] [address] [email or web address] 05/12/23 06/09/23 documented as of this encounter Additional Source Comments The information contained in this document represents components of the legal health record. It is not the complete legal health record.[facility]
--- OUTSIDE RECORDS SUMMARY | 2025-02-11 07:01 | XMS_ITS | Clinical Summary ---
Author Organization [employer] Address [address] 7[address] [place] [address] Care Team Providers Care International Affairs Vice President Name Role Phone Unavailable Primary Care Provider [...] 60 years or older (1 - Risk 50-74 years 1-dose series) 07/23/2005 Mammogram 03/27/2020 03/27/2018, 02/25, 03/08/2017 Tobacco Screening [...] Most Recently Relevant to Health Maintenance Insurance [facility] MEDICAID STAND ADULT
--- OUTSIDE RECORDS SUMMARY | 2025-02-11 07:01 | XMS_ITS | Clinical Summary ---
Author Organization [facility] Address [address] [place] [address] Phone Care Team Providers Care Vice President Quality Assurance Name Role Phone Agueda Ann MD Primary Care Provider [phone] Andie Rossi MD Unavailable [phone] West Doll MD Unavailable [phone] Britany Coles MD Unavailable Naun Hoang MD [...] mouth daily. 4 Active neomycin/bacitra negrito/polymyxinB (NEOSPORIN, BVT-SMA-BLXLN, TP) Apply 1 Application topically 2 (two) [...] 20 MG tabletIndication s:Coronary artery disease involving [place] heart without angina pectoris, unspecified vessel or [...] an echo, and follow-up with her own street sweeper operator who is at [place]. Acquired hypothyroidism 09/04/2020 Assessment & Plan (12/26/2022 [...] like to little and she is established [place] weight management so I like her to see the title curative specialist there she understands and agrees this plan Assessment & Plan (05/17/2019 12:35 PM EST): She is working out, tracking her caloric intake and sticking to nutrition plan although she is under eating. No clear etiology for her weight gain. Start taking levothyroxine separately from the other medications. Check labs today. Make follow-up with title curative specialist CAD (coronary artery disease) 03/02/2019 Overview (03/02/2019): h/o stent Assessment & Plan (12/26/2022 3:02 PM EDT): No active cp or acute concern -Continue cardiac cath rn -Continue aspirin, atorvastatin, Plavix, and Zetia Is [...] and chronic pain. Certainly would benefit from LINER INSTALLER services and I have discussed with pt [...] pt can establish with someone new at [facility]. Assessment & Plan (01/21/2021 12:34 PM EDT): [...] and gait. She will be going to [facility] physical medicine and rehabilitation in [place] for this. IgG monoclonal gammopathy Assessment & Plan (03/02/2019 12:15 PM EST): Patient denies ever seeing hematology, has never heard this diagnosis and does not think that she has this. As I do not have records it is difficult for me to understand where this came from. I would like to review her [facility] records and if necessary we will do [...] appt for Neuro muscular in Dec at [facility] No further pain. F/u as needed Assessment [...] patient's age to complete this topic IPV VACCINES Aged Out No longer eligi ble based on patient's age to complete this topic MENINGOCOCCAL VACCINES (ACWY) Aged Out No longer eligible based on patient's age to complete this topic MENINGOCOCCAL VACCINES (B) Aged Out N o longer eligible based on patient's age to complete this topic Medical Devices Implanted Type Area Remedial Masseur Device Identifier Shelf Expiration Date Model / Serial / Lot Stent Supera 6fr 5.5mm 120mm 120cm .014in Otw Vascular Peripheral Nitinol Self Expanding Closed End Braided - [id number] Implanted:Qty: 1 on 11/18/2022 by David Mendez MD at [employer] Stent SNYDER [employer] 04/27/2024 [id number] / / [id number] Cardiac Stent Neck Hardware Procedures Procedure Name Priority Date/Time Associated Diagnosis Comments HM COLONOSCOPY FOR RESULT ENTRY ONLY Routine 11/10/2023 [...] EST) SODIUM 137 133 - 146 mmol/L [facility] CHLORIDE 101 96 - 108 mmol/L [facility] POTASSIUM 4.1 3.3 - 5.1 mmol/L [facility] CO2 24 21 - 35 mmol/L [facility] BUN 27(H) 6 - 19 mg/dL [facility] CREATININE 0.50 0.5 - 1.5 mg/dL [facility] GLUCOSE 103(H) 70 - 99 mg/dL [facility] CALCIUM 9.0 8.4 - 10.3 mg/dL [facility] EGFR 103 >59 mL/min/1.7 3m2 [facility] Comment:Estimated glomerular filtration rate calculated using the CKD-EPI refit equation. ANION GAP 16 10 - 20 mmol/L [facility] Blood 05/23/2023 4:12 PM EST 05/23/2023 4:32 PM EST us Mely Padron PA-C LAB BLOOD BKR ORDERABLES Fin al Result Performing Organization Address City/[facility]/ZIP Co de Phone Number [address] [address] * (ABNORMAL) TSH with reflex (01/13/2023 7:58 AM EDT) TSH 0.03(L) 0.27 - 4.20 uIU/mL [facility] Blood 01/13/2023 7:58 AM EDT 01/13/2023 8:03 AM EDT Agueda Ann MD LAB BLOOD BKR ORDERABLES Final R esult [address] [address] * (ABNORMAL) Lipid panel (12/25/2022 5:22 AM EDT) HDL 46 mg/dL [facility] Comment: Interpretation <40 mg/dL: Low HDL cholesterol (major risk factor for CHD) Greater than or equal to 60 mg/dL: High HDL cholesterol ( negative risk factor for CHD) HDL - cholesterol is affected by a number of factors, e.g. smoking, excerise, hormones, sex and age. CHOLESTEROL 98 0 - 240 mg/dL [facility] TRIGLYCERIDES 86 30 - 160 mg/dL [facility] LDL 35(L) 50 - 129 mg/dL [facility] Comment: LDL levels in terms of risk for coronary heart disease: <100 mg/dL: Optimal 100-129 mg/dL: Near or above optimal 130-159 mg/dL: Borderline high 160-189 mg/dL: High >190 mg/dL: Very High CARDIAC RISK RATIO 2.1(L) 3.3 - 4.4 C [facility] Blood 12/25/2022 5:22 AM EDT 12/25/2022 6:22 AM EDT us Kayley Ribera ANIMAL SITTER LAB BLOOD BKR ORDERABLE S Final Result [address] [address] * MAMMOGRAPHY FOR RESULT ENTRY ONLY (07/07/2022) us Agueda Ann MD HEALTH MAINTENANCE Edited Result - Final from Last 3 Months or Most Recently Relevant to Health Maintenance Insurance MEDICARE PART [place] & [place] B [facility] MED[facility] PART A & [place] B [facility] MEDICARE PART A & [place] & [place] MEDICARE PART A & B [address] [place], [place] [address]HEALTH MEDICARE PART A & B [facility] MEDICARE PART A & B [facility] Advance Directives For more information, please contact: [phone] (9AM - 5PM [facility], Tuesday-Tuesday) Documents on File Type Date Recorded Patient Full Stack Developer Expl anation Healthcare Proxy 11/08/2022 6:36 PM [...] Code Status Confirmed With: Patient Care Teams Vice President Quality Assurance Relationship Specialty Start Date End Date Agueda Ann MD [address] [place] [address] [email or web address] PCP - General Family Medicine 02/01/19 Andie Rossi MD [address] [place] [address] Neurology 03/02/19 West Doll MD [address] [place] [address] 104 [place] [address] Cardiology 03/02/19 Britany Coles MD [address] [place] [address] 140 [place] [phone] Orthopedic Surgery 03/02/19 Naun Hoang MD [address] [place] [address] Infectious Diseases 03/02/19 Additional Source Comments The information contained in this document represents components of the legal health record. It is not the complete legal health record.[facility]
--- OUTSIDE RECORDS SUMMARY | 2025-02-11 07:01 | XMS_ITS | Encounter Summary ---
Author Organization [facility] Address [address] [place] [address] Phone Care Team Providers Care Culinary Internship Name Role Phone Agueda Ann MD Primary Care Provider [phone] Andie Rossi MD Unavailable West Doll MD Unavailable Britany Coles MD Unavailable [phone] Naun Hoang MD Unavailable + Agueda Ann MD Unavailable Mely Bhatti RN Unavailable [email or web address] Encounter Details Date Type Department Care Team (Late st Contact Info) Description 12/24/2022 Procedure Pass [facility], [facility] [address] [place] [address] Social History Tobacco Use Types Packs/Day Years [...] high school, GED, job training, learning the Sammarinese language, technical skills, or developing parenting skills)? [...] 12/24/2022 9:29 AM Natalya Menon, NICOLE * [place] Suicide Severity Rating Scale (Screener/Recent Self-Report) Question [...] documented as of this encounter Care Teams Culinary Internship Relationship Specialty Start Date End Date Agueda Ann MD [address] [address] [email or web address] PCP - General Family Medicine 02/01/19 Andie Rossi MD [address] [place] [address] Neurology 03/02/19 West Doll MD [address] [place] [address] 104 [place] [address] Cardiology 03/02/19 Britany Coles MD [address] [place] [address] 140 [place] [phone] [email or web address] Surgery 03/02/19 Naun Hoang MD [address] [place] [address] Infectious Diseases 03/02/19 Agueda Ann MD [address] [address] [email or web address] Insurance Assigned Provider 4/6/24 1/6/25 Mely Bhatti, RN [address] [place] [address] [email or web address] 05/12/23 06/09/23 documented as of this encounter Additional Source Comments The information contained in this document represents components of the legal health record. It is not the complete legal health record.[facility]
--- OUTSIDE RECORDS SUMMARY | 2025-02-11 07:01 | XMS_ITS | Encounter Summary ---
Author Organization [facility] Address [address] [place] [address] Phone Care Team Providers Care Cashier Courtesy Booth Name Role Phone Agueda Ann MD Primary Care Provider [phone] Andie Rossi MD Unavailable West Doll MD Unavailable Britany Coles MD Unavailable [phone] Naun Hoang MD Unavailable + Agueda Ann MD Unavailable Mely Bhatti RN Unavailable [email or web address] Encounter Details Date Type Department Care Team (Late st Contact Info) Description 12/24/2022 Procedure Pass [facility], [facility] [address] [place] [address] Social History Tobacco Use Types Packs/Day Years [...] high school, GED, job training, learning the [place]ian language, technical skills, or developing parenting skills)? [...] 12/24/2022 9:29 AM Natalya Menon, NICOLE * [place] Suicide Severity Rating Scale (Screener/Recent Self-Report) Question [...] documented as of this encounter Care Teams Cashier Courtesy Booth Relationship Specialty Start Date End Date Agueda Ann MD [address] [address] [email or web address] PCP - General Family Medicine 02/01/19 Andie Rossi MD [address] [place] [address] Neurology 03/02/19 West Doll MD [address] [place] [address] 104 [place] [address] Cardiology 03/02/19 Britany Coles MD [address] [place] [address] 140 [place] [phone] [email or web address] 03/02/19 Naun Hoang MD [address] [place] [address] Infectious Diseases 03/02/19 Agueda Ann MD [address] [address] [email or web address] Insurance Assigned Provider 4/6/24 1/6/25 Mely Bhatti, RN [address] [place] [address] [email or web address] 05/12/23 06/09/23 documented as of this encounter Additional Source Comments The information contained in this document represents components of the legal health record. It is not the complete legal health record.[facility]
--- OUTSIDE RECORDS SUMMARY | 2025-02-11 07:01 | XMS_ITS | Data Portability ---
Author Organization [facility], Main Office Address [address] [address] [address] [place] [address] Care Team Providers Care Clinical Data Associate Name Role Phone VINI DOWLING 1ST FLOOR [...] Address Organization Details Recorded Time Diabetes mellitus 35347814 Active 2023 MIRI NORTON [address] [facility], [address], [place], [address], [facility] 4 20:18:04 Essential hypertensio n 67907100 Active 2023 MIRI NORTON [address] [facility], [address], [place], [address], [facility] 4 20:18:10 Hyperlipide reinier 92499580 Active 2023 MIRI NORTON [address] [place] [address], [address], [place], [address], [facility] 4 20:18:16 Femoral-pop liteal artery bypass graft Completed 202309/01/2023 MIRI NORTON [address] [place] [address], [address], [place], [address], [facility] 4 22:16:23 Anemia 755252313 Active 2023 MIRI NORTON [address] [place] [address], [address], [place], [address], [facility] 4 20:20:45 Cerebrovasc ular accident 286207590 Active 2023 MIRI NORTON [address] [place] [address], [address], [place], [address], [facility] 4 20:21:06 Femoro-ante rior tibial bypass graft Completed 202309/01/2023 MIRI NORTON [address] [place] [address], [address], [place], [address], [facility] 4 22:16:23 Chronic kidney disease stage 3 052070254 Active 2023 MIRI NORTON [address] [place] [address], [address], [place], [address], [facility] 4 20:28:49 Peripheral vascular disease 961562639 Active 2023 MIRI NORTON [address] [place] [address], [address], [place], [address], [place] [facility] 20:29:56 Asthenia 66387316 Active 2023 PÉREZ LUNDBERG, MIRI [address], [address], [place], [address], [facility] 20:30:45 Insomnia 086393465 Active 2023 PÉREZ LUNDBERG, MIRI [address], [address], [place], [address], [facility] - [facility] 4 21:49:49 Constipatio n 10551780 Active 2023 MIRI NORTON [address], [address], [place], [address], [facility] 4 21:52:14 Acute kidney injury 24421154 Active 2023 MIRI NORTON [address], [address], [place], [address], [facility] 4 21:56:55 Hypocalcemi a 1083545 Completed 202309/01/2023 MIRI NORTON [address], [address], [place], [address], [facility] 4 22:16:23 Myasthenia gravis 16951674 Active 2023 MIRI NORTON [address], [address], [place], [address], [facility] 4 22:10:42 Aphasia 30994998 Completed 202309/01/2023 MIRI NORTON [address], [address], [place], [address], [facility] 4 22:16:23 Vascular dementia 763958162 Active 2023 MIRI NORTON [address], [address], [place], [address], [facility] 4 13:06:33 Amputated below knee 362601221 Active 2023 MIRI NORTON [address], [address], [place], [address], [facility] 4 16:38:11 Delirium 3467089 Active 2023 MIRI NORTON [address], [address], [place], [address], [facility] 4 16:54:43 Dysphagia 22530481 Active 2023 [address]ORT[address]P [address], [address], [place], [address], [facility] 4 16:55:09 Toxic encephalopa thy 89719711 Active 2023 JOHN NORTONP [address] [facility], [address], [place], [address], [facility] 4 16:55:43 Hypothyroid ism 82516618 Active 2023 JOHN NORTONP [address] [facility], [address], [place], [address], [facility] 4 22:18:37 Anxiety 91098800 Active [address] [facility] [address] [facility], [address], [place], [address], [facility] 4 22:24:04 Carotid artery stenosis 83458236 Active 2023 MIRI NORTON [address] [facility], [address], [place], [address], [facility] 4 12:10:00 Problem Notes [...] 97 % 118/68 mm[Hg] MIRI NORTON [address] [facility], [address], [place], [address], [facility] 4 14:16:49 Date Recorded Body height Heart rate Respiratory rate Body temperature Oxygen saturation Oxygen saturation in Arterial blood by Pulse oximetry Systolic And Diastolic Provider Name and Address Organization Details Last Updated DateTime 4 165.1 cm 73 /min 18 /min 98 [degF] 94 % 94 % 111/76 mm[Hg] MIRI NORTON [address] [facility], [facility] [address], [place], [address], [facility] 4 11:35:13 Date Recorded Body height Respiratory rate Body temperature Oxygen saturation Oxygen saturation in Arterial blood by Pulse oximetry Heart rate Systolic And Diastolic Provider Name and Address Organization Details Last Updated DateTime 4 165.1 cm 18 /min 98 [degF] 94 % 94 % 68 /min 118/71 mm[Hg] MIRI NORTON [address] [facility], [address], [place], [address], [facility] 4 16:01:39 Date Recorded Body height Body mass index (BMI) Body weight Heart rate Respiratory rate Body temperature Oxygen saturation Oxygen saturation in Arterial blood by Pulse oximetry Systolic And Diastolic Provider Name and Address Organization Details Last Updated DateTime 4 165.1 cm 28.6 kg/m2 63458.8 9 g 73 /min 16 /min 98.4 [degF] 100 % 100 % 135/68 mm[Hg] MIRI NORTON [address] [facility], [address], [place], [address], [facility] 4 15:14:16 Social History Question Answer Notes LastModified by Organizat ion Details LastModified Time Tobacco Smoking Status Never Smoker MIRI NORTON [address] [facility], [address], [place], [address], [facility] 06/30/2023 02:31:25 Do You Have An [...] Do You Have A Medical Power Of [place]? Yes Information not available 07/22/2023 What Was [...] Time Tdap 9 completed Elle South null, [facility] 07/01/2023 13:25:18 Tdap 8 completed Elle South null, [facility] 07/01/2023 13:25:33 Pneumococcal conjugate PCV20, polysaccharide OLS957 conjugate, adjuvant, PF 2 completed Elle South [facility], [facility] 07/01/2023 13:25:55 pneumococcal polysaccharide PPV23 4 completed Elle South null, [facility] 07/01/2023 13:26:09 pneumococcal polysaccharide PPV23 7 completed Elle South [facility] 07/01/2023 13:26:18 influenza, unspecified formulation 2 completed Elle South [facility] 07/01/2023 13:26:47 influenza, unspecified formulation 3 completed Elle Brannon [facility], [facility] 07/01/2023 13:26:55 SARS-COV-2 (COVID-19) vaccine, UNSPECIFIED 1 completed Elle Brannon [facility] 07/01/2023 13:27:17 SARS-COV-2 (COVID-19) vaccine, UNSPECIFIED 1 completed Elle Brannon [facility] 07/01/2023 13:27:40 SARS-COV-2 (COVID-19) vaccine, UNSPECIFIED 1 completed Elle Brannon [facility], [facility] 07/01/2023 13:27:55 SARS-COV-2 (COVID-19) vaccine, UNSPECIFIED 2 [facility] 13:28:04 SARS-COV-2 (COVID-19) vaccine, UNSPECIFIED 2 completed [facility]23 13:28:24 SARS-COV-2 (COVID-19) vaccine, UNSPECIFIED 3 completed Elle Brannon [facility] 07/01/2023 13:28:37 zoster, unspecified formulation 9 completed Elle South [facility] 07/01/2023 13:29:06 zoster, unspecified formulation 9 completed Elle South [facility] 07/01/2023 13:29:21 Past Encounters Encounter ID Performer Location Encounter Start Date Encounter Closed Date Diagnosis/Indication Diagnosis SNOMED-CT Code Diagnosis ICD10 Code Diagnosis IMO Codes Diagnosis Note [id number] MIRI NORTON [address] [place] [address] 06/29/2023 15:34:40 07/22/2023 14:35:38 Peripheral vascular disease 701275740 I73.9 s/p right femoral endarterec bridget with [...] rightfollo w up with vascular 06/29 Asthenia 84460380 R53.1 hx of myasthenia gravisPT/O T eval and treat Diabetes mellitus 576979 09 E11.9 A1c 5.7 on 06/23hospit al records indicate that she states she is taking for constipati on, she is not sure she is a diabetic.c ontinue metformin 500 mg BIDcontinu e to monitor FSfollow-u p with PCP after discharge for further management Essential hypertension 14705836 I10 continue lisinopril 5 mg dailyconti nue metoprolol 50 mg bidfurosem oxana 40 mg dailymonit or BP /labs Hyperlipidemia 89950631 E78.5 atorvastat in 40 mg dailymonit or lipids prn Insomnia 530919988 G47.0 0 continue melatonin 9 mg hscontinue trazadone 12.5 mg hs prn Constipation 84163625 K5 9.00 continue colace 100 mg bidcontinu e miralax 17 gm dailyincre ase oral hydration Anemia 914139519 D64.9 continue ferrous sulfate 325 mg dailymonit or CBCH&H stable at 7.9/25.1 Hypocalcemia 3523875 E83 .51 continue calcium carbonate 500 mg dailyconti nue cholecalci ferol 1000 u daily Myasthenia gravis 688014 04 G70.00 carrying dxmaintain safety/pre cautionsno t on medication Cerebrovas cular accident 927930471 I63.9 carrying dx Chronic ki dney disease stage 3 594462323 N18.30 mahi resolved in acute careavoid nephrotoxi c medication smonitor labs [id number] [facility] [address] [place] [address] 06/30/2023 11:39:21 07/04/2023 14:42:16 Bleeding from nose 497817423 R04.0 uncontroll ed bleeding from right narespt is on multiple anticoag( asa, eliquis and plavix) held this morning.wi ll send to ED for eval and tx. [id number] MIRI NORTON [address] [place] [address] 07/12/2023 11:03:46 07/19/2023 11:10:58 Open wound of right foot 4017277701 9067898 S91.301A dorsal right foot with wound vacDo Not remove wound vac, she has appt with vascular on 07/13 Surgical i ncision wound of skin 4707058808 00 R23.8 right lateral mid thigh with 22 nehemias right low leg corral 12 staple right lower extremity medial thigh wound with packing Peripheral vascular disease 656651350 I73.9 s/p right femoral endarterec bridget with [...] rightfollo w up with vascular 06/29 Asthenia 94920956 R53.1 hx of myasthenia gravisPT/O T eval and treat Diabetes mellitus 611516 09 E11.9 A1c 5.7 on 06/23hospit al records indicate that she states she is taking for constipati on, she is not sure she is a diabetic.c ontinue metformin 500 mg BIDcontinu e to monitor FSfollow-u p with PCP after discharge for further management Essential hypertension 36570675 I10 continue lisinopril 5 mg dailyconti nue metoprolol 50 mg bidfurosem oxana 40 mg dailymonit or BP /labs Hyperlipidemia 19009833 E78.5 atorvastat in 40 mg dailymonit or lipids prn Insomnia 227455138 G47.0 0 continue melatonin 9 mg hscontinue trazadone 12.5 mg hs prn Constipation 43412254 K5 9.00 continue colace 100 mg bidcontinu e miralax 17 gm dailyincre ase oral hydration Anemia 219885706 D64.9 baseline 7.9-8decre ased to 7.0 due to epistaxiss he was transfused 2 PRBCsconti nue ferrous sulfate 325 mg dailymonit or CBC Hypocalcemia 0436356 E83 .51 continue calcium carbonate 500 mg dailyconti nue cholecalci ferol 1000 u daily Myasthenia gravis 433415 04 G70.00 carrying dxmaintain safety/pre cautionsno t on medication Cerebrovas cular accident 153089211 I63.9 carrying dx Chronic ki dney disease stage 3 737013702 N18.30 mahi resolved in acute careavoid nephrotoxi c medication smonitor labs Aphasia 66033460 R47.01 hx of CVAIntermi ttent aphasia/Wo rd finding difficulty no new stroke seen on brain MRI.Suspec t vascular dementia, may have some hypoperfus ion given her anemia. [id number] MIRI NORTON [address] [place] [address] rd [place] [address] 07/18/2023 10:15:58 07/22/2023 15:25:22 Open wound of right foot 9506174513 6394689 S91.301A s/p wound debridemen t 07/13, will be returning to vascular 07/19 for integra placement and wound vac Surgical i ncision wound of skin 7334559444 00 R23.8 right lateral mid thigh with 22 staplesrig ht low leg corral 12 staplerigh t lower extremity medial thigh wound with packingnur sing to removed on 07/18 ord placed in [facility] Peripheral vascular disease 202857727 I73.9 s/p right femoral endarterec bridget with [...] 6 prncontinu e lidocaine patch right Asthenia 81415788 R53.1 hx of myasthenia gravisPT/O T eval and treat Diabetes mellitus 811723 09 E11.9 A1c 5.7 on 06/23hospit al records indicate that she states she is taking for constipati on, she is not sure she is a diabetic.c ontinue metformin 500 mg BIDcontinu e to monitor FSfollow-u p with PCP after discharge for further management Essential hypertension 99144893 I10 continue lisinopril 5 mg dailyconti nue metoprolol 50 mg bidfurosem oxana 40 mg dailymonit or BP /labs Constipation 77479592 K5 9.00 continue colace 100 mg bidcontinu e miralax 17 gm dailyincre ase oral hydration Anemia 068152420 D64.9 baseline 7.9-8decre ased to 7.0 due to epistaxiss he was transfused 2 PRBCsconti nue ferrous sulfate 325 mg dailymonit or CBC Aphasia 64178986 R47.01 hx of CVAIntermi ttent aphasia/Wo rd finding difficulty no new stroke seen on brain MRI.Suspec t vascular dementia, may have some hypoperfus ion given her anemia. [id number] Afia Tierney MD [address] [place] [address] 07/22/2023 14:24:36 08/15/2023 12:08:31 Open wound of right foot 5442253140 0439610 S91.301A Continue wound care as ordered.F/ U with surgeon as planned for further debridemen t and wound vac placement. Surgical i ncision wound of skin 1906079414 00 R23.8 Wounds healing well.Stale s removed. Peripheral vascular disease 529707352 I73.9 s/p right femoral endarterec bridget with [...] mg q 6 hrs prnMonitor sxs. Asthenia 40805483 R53.1 As above. Diabetes mellitus 018031 09 E11.9 HgA1C was 5.7 on 06/23All sugars <200 since here, so fingerstic ks d/c'd on 07/18Contin ue metformin 500 mg BIDMonitor fingerstic ks prn. Essential hypertension 30081450 I10 BP in good control on lisinopril 5 mg qd, metoprolol 50 mg BID, and furosemide 40 mg qdMonitor BP and labs. Constipation 92318701 K5 9.09 Continue bowel meds as ordered.Mo nitor bowel function. Anemia 862344261 D64.89 Multifacto rial.Galindo nue ferrous sulfate 325 mg qdMonitor CBC Aphasia 53856270 R47.01 As above. Hyperlipidemia 22841035 E78.49 Continue atorvastat in 40 mg qdMonitor lipids yearly Insomnia 125782889 G47.0 0 Continue melatonin 9 mg qhs and trazadone 12.5 mg qhs prnMonitor sleep patterns. Hypocalcemia 4667736 E83 .51 Doesn't have hypocalcem ia.Correct ed Ca+ os 9.08Likely is on Ca+ and vit D for osteopenia .Continue calcium carbonate 500 mg qd and cholecalci ferol 1000 IU qd. Myasthenia gravis 482435 04 G70.00 Carrying dxOn no meds at this time.Very deconditio kelsy.Needs PT/OT for strengthen ing, balance, gait training, safety and function.C ontinue fall precaution s.Monitor for safety. Cerebrovas cular accident 787340982 I63.89 With mod to severe aphasia.SL P eval and tx.Continu e meds as above.Prakash emory for new neuro sxs. Chronic ki dney disease stage 3 226930524 N18.32 At baseline.C ontinue to avoid nephrotoxi c meds as able.Monit or labs.Renal consult prn. Anxiety 91343079 F41.1 Very anxious tonight. Anxiety makes it even harder for her to get her words out.Will start lorazepam 0.5 mg q 6 hrs prn [id number] MIRI NORTON [address] [place] [address] [place] [address] 07/25/2023 12:45:25 07/26/2023 15:42:48 Open wound of right foot 6175624159 0829519 S91.301A 07/19: s/p wound debridemen tcontinue wound treatment as ordered.fo llow up with [facility] on 08/01 at 130 pm Surgical i ncision wound of skin 2423743965 00 R23.8 right lateral mid thigh - HEALING NEHEMIAS REMOVED IN ACUTE CAREright low leg corral healingrig ht lower extremity medial thigh wound with packing Peripheral vascular disease 258055981 I73.9 s/p right femoral endarterec bridget with [...] 6 prncontinu e lidocaine patch right Asthenia 08768573 R53.1 hx of myasthenia gravisPT/O T eval and treat Diabetes mellitus 948570 09 E11.9 continue metformin 500 mg BIDcontinu e to monitor FSfollow-u p with PCP after discharge for further management Essential hypertension 79521288 I10 continue lisinopril 5 mg dailyconti nue metoprolol 50 mg bidfurosem oxana 40 mg dailymonit or BP /labs Constipation 93251063 K5 9.00 continue colace 100 mg bidschedul ed miralax 17 gm daily and senna 8.6 mg daily.incr ease oral hydration Anemia 564465723 D64.9 see hpitoday 6.7 -will recheck on 07/25contin ue ferrous sulfate 325 mg dailycolor is normal, there is no SOB, extremitie s are warm.monit or CBC [id number] MIRI NORTON [address] [place] [address] [place] [address] 07/29/2023 09:49:56 08/02/2023 10:28:17 Open wound of right foot 3694304332 7940957 S91.301A 07/19: s/p wound debridemen tcontinue wound treatment as ordered.fo llow up with [facility] on 08/01 at 130 pm Peripheral vascular disease 819672804 I73.9 s/p right femoral endarterec bridget with [...] prncontinu e lidocaine patch right Diabetes mellitus 632130 09 E11.9 continue metformin 500 mg BIDcontinu e to monitor FSfollow-u p with PCP after discharge for further management Essential hypertension 51779551 I10 continue lisinopril 5 mg dailyconti nue metoprolol 50 mg bidfurosem oxana 40 mg dailymonit or BP /labs Anemia 187750885 D64.9 see hpicontinu e ferrous sulfate 325 mg dailycolor is normal, there is no SOB, extremitie s are warm.monit or CBC [id number] MIRI NORTON [facility] [address] [facility] [place] [address] 08/05/2023 09:45:20 08/09/2023 11:18:14 Open wound of right foot 5462876080 9663523 S91.301A 07/19: s/p wound debridemen tcontinue wound treatment as ordered.fo llow up with [facility] on 08/02 with new wound care orders-[facility] care for R foot: Apply saline moistened Promogran over Puraply three times weekly. Peripheral vascular disease 286026051 I73.9 s/p right femoral endarterec bridget with [...] prncontinu e lidocaine patch right Diabetes mellitus 818720 09 E11.9 continue metformin 500 mg BIDcontinu e to monitor FSfollow-u p with PCP after discharge for further management Essential hypertension 29292565 I10 continue lisinopril 5 mg dailyconti nue metoprolol 50 mg bidfurosem oxana 40 mg dailymonit or BP /labs Anemia 465682915 D64.9 see hpicontinu e ferrous sulfate 325 mg dailycolor is normal, there is no SOB, extremitie s are warm.monit or CBC [id number] [facility] [address] [place] [address] 08/09/2023 08:23:37 08/12/2023 11:43:31 Open wound of right foot 0132025731 4922753 S91.301A 07/19: s/p wound debridemen tcontinue wound treatment as ordered.fo llow up with [facility] on 08/02 with new wound care orders-[facility] care for R foot: Apply saline moistened Promogran over Puraply three times weekly[facility]. [facility] vascular disease 945025283 I73.9 s/p right femoral endarterec bridget with [...] prncontinu e lidocaine patch right Diabetes mellitus 813978 09 E11.9 continue metformin 500 mg BIDcontinu e to monitor FS Essential hypertension 10086200 I10 continue lisinopril 5 mg dailyconti nue metoprolol 50 mg bidfurosem oxana 40 mg dailymonit or BP /labs Anemia 062785878 D64.9 H/H has been stable.con tinue ferrous sulfate 325 mg dailycolor is normal, there is no SOB, extremitie s are warm.monit or CBC [id number] MIRI NORTON [address] [place] [address] 08/15/2023 13:44:19 08/18/2023 13:20:18 Open wound of right foot 2225445520 8122066 S91.301A 07/19: s/p wound debridemen tcontinue wound treatment as ordered.fo llow up with [facility] on 08/02 with new wound care orders-[facility] care for R foot: Apply saline moistened Promogran over Puraply three times weekly.07/26 5 :s/p right foot debridemen t, applicatio n of skin substitute graftfollo w up appt 08/15 at [facility] with vascular. Peripheral vascular disease 287557213 I73.9 s/p right femoral endarterec bridget with [...] prncontinu e lidocaine patch right Diabetes mellitus 823261 09 E11.9 continue metformin 500 mg BIDcontinu e to monitor FS Essential hypertension 07826161 I10 continue lisinopril 5 mg dailyconti nue metoprolol 50 mg bidfurosem oxana 40 mg dailymonit or BP /labs Anemia 517518390 D64.9 H/H 6.6/21.2- will repeat labsconsid er adding ascorbic acid dailyconti nue ferrous sulfate 325 mg dailycolor is normal, there is no SOB, extremitie s are warm.monit or CBC [id number] MIRI NORTON [address] [place] [address] 08/16/2023 08:21:08 08/18/2023 15:50:07 Open wound of right foot 4387599366 0309278 S91.301A see HPI with new finding today,07/19 : s/p wound debridemen :s/p right foot debridemen t, applicatio n of skin substitute graft08/10: tuesday morning sent back to S for excessive wound bleeding thru dressings- transfused 1 unit of packed red blood cells.08/11 : returned from [facility].: abnormal H/H 6.3/19.9 Peripheral vascular disease 003916307 I73.9 s/p right femoral endarterec bridget with [...] 6 prncontinu e lidocaine patch right Anemia 338556420 D64.9 H/H 6.3/19.9co ntinue ferrous sulfate 325 mg dailycolor is pale there is no SOB, extremitie s are warm, right foot cold. [id number] [facility] [address] [place] [address] [place] [address] 08/29/2023 12:13:56 09/05/2023 15:08:58 Amputated below knee 140594395 Z89.519 Critical limb ischemia of right lower extremity now s/p right below knee amputation .continue oxycodone 5 mg q 6 prnfollow up with vascular on 09/01/23 Peripheral vascular disease 808874468 I73.9 s/p below knee amputation continue asa, plavix and eliquiscon tinue oxycodonec ontinue lyrica 150 mg qd and 200 mg at HS Delirium 8631787 R41.0 resolved in acute careof note she is at baseline status, she is alert and oriented. Dysphagia 86362714 R13.1 0 resolvedsh e was seen by speech in acute acute care, continue reg diet with thin liquids Toxic encephalopathy 283 54523 G92.9 resolved in acute careammoni a level 20 on 08/24 Diabetes mellitus 064634 09 E11.9 continue metformin 500 mg BIDcontinu e to monitor FS Essential hypertension 79683210 I10 continue lisinopril 5 mg dailyconti nue metoprolol 50 mg bidfurosem oxana 40 mg dailymonit or BP /labs Hypothyroidism 98276524 E03.9 continue levothyrox ine 200 mcgtsh 8- recheck labs in 6-8 weeks Hyperlipidemia 25501871 E78.49 atorvastat in 40 mg dailymonit or lipids prn Anemia 911429353 D64.9 continue ferrous sulfate 325 mg dailycont. Vit D 1000u daily Constipation 65342565 K5 9.09 continue colace 100 mg bidschedul ed miralax 17 gm daily and senna 8.6 mg daily.incr ease oral hydration Anxiety 19766866 F41.9 continue ativan 0.5 mg q6 prnpsych eval and tx- she had recent amputation , I think she will benefit from speaking with psych, she will need support coping with limp loss. [id number] MIRI NORTON [address] [place] [address] [place] [address] 08/31/2023 10:12:07 09/05/2023 16:19:16 Cough 90191858 R05.9 08/29: non productive congested cough- is not interrupti ng with sleepchest xay showed no active infiltrate s or changes ofpulmonar y venous congestion or evidence of a pleural effusion.w ill start mucinex 600 mg q12 for 7 days and re eval. Amputated below knee 299 168163 Z89.519 Critical limb ischemia of right lower extremity now s/p right below knee amputation .continue oxycodone 5 mg q 6 prnfollow up with vascular on 09/01/23PT/O T eval and treatment for conditioni ng and strengthen ing. Peripheral vascular disease [id number] I73.9 s/p below knee amputation continue asa, plavix and eliquiscon tinue oxycodonec ontinue lyrica 150 mg qd and 200 mg at HS Essential hypertension 91741361 I10 continue lisinopril 5 mg dailyconti nue metoprolol 50 mg bidfurosem oxana 40 mg dailymonit or BP /labs Hypothyroidism 99772805 E03.9 continue levothyrox ine 200 mcgtsh 8- recheck labs in 6-8 weeks Anxiety 72240735 F41.9 continue ativan 0.5 mg q6 prnpsych eval and tx- she had recent amputation , I think she will benefit from speaking with psych, she will need support coping with limp loss.mood is stable today. [id number] MIRI NORTON [address] [address] 09/05/2023 08:59:26 09/08/2023 16:20:28 Cough 51748510 R05.9 resolved Amputated below knee 299 843431 Z89.519 right below knee amputation .continue oxycodone 5 mg q 6 prncontinu e PT/OT eval and treatment for conditioni ng and strengthen ing.contin ue wound care Betadine, dry gauze, the stump telegraphic typewriter repairer and the amputation shield. Peripheral vascular disease 669356345 I73.9 s/p below knee amputation continue asa, plavix and eliquiscon tinue oxycodonec ontinue lyrica 150 mg qd and 200 mg at HS Essential hypertension 83420314 I10 continue lisinopril 5 mg dailyconti nue metoprolol 50 mg bidfurosem oxana 40 mg dailymonit or BP /labs Hypothyroidism 73741848 E03.9 continue levothyrox ine 200 mcgtsh 8- recheck labs in 6-8 weeks Anxiety 77581613 F41.9 continue ativan 0.5 mg q6 prnshe was seen by psychologist personnel who is recommendi ng starting duloxetine , benfits discuused ,patient will like to think about it. Carotid ar dahlia stenosis 35606320 I65.29 stent placement in juner. Amanda would like her on aspirin and plavix for 3 months post op, then can resume aspirin and eliquis.Sh e will need a carotid duplex later on this summer to recheck the right carotid, determine whether to reinterven e on the stent. [id number] MIRI NORTON JOSEY [address] [place] [address] 09/07/2023 11:22:32 09/09/2023 08:57:56 Amputated below knee 247293241 Z89.519 right below knee amputation .continue oxycodone 5 mg q 6 prncontinu e PT/OT eval and treatment for conditioni ng and strengthen ing.contin ue wound care Betadine, dry gauze, the stump telegraphic typewriter repairer and the amputation shield. Peripheral vascular disease 827872796 I73.9 s/p below knee amputation continue asa, plavix and eliquiscon tinue oxycodonec ontinue lyrica 150 mg qd and 200 mg at HS Essential hypertension 35216305 I10 continue lisinopril 5 mg dailyconti nue metoprolol 50 mg bidfurosem oxana 40 mg dailymonit or BP /labs Hypothyroidism 09578255 E03.9 continue levothyrox ine 200 mcgtsh 8- recheck labs in 6-8 weeks Anxiety 84186742 F41.9 continue ativan 0.5 mg q6 prnshe was seen by psychologist personnel who is recommendi ng starting duloxetine , benfits discuused ,patient will like to think about it. Carotid ar dahlia stenosis 49634022 I65.29 stent placement in juner. Marecki would like her on aspirin and plavix for 3 months post op, then can resume aspirin and eliquis.Sh e will need a carotid duplex later on this summer to recheck the right carotid, determine whether to reinterven e on the stent. [id number] MIRI NORTON [facility] JOSEY [address] [place] [address] 09/12/2023 11:21:52 09/14/2023 16:46:41 Amputated below knee 012729491 Z89.519 right below knee amputation .continue oxycodone 5 mg q 6 prncontinu e PT/OT eval and treatment for conditioni ng and strengthen ing.contin ue wound care Betadine, dry gauze, the stump telegraphic typewriter repairer and the amputation shield. Peripheral vascular disease 862063731 I73.9 s/p below knee amputation continue asa, plavix and eliquiscon tinue oxycodone Q 6continue lyrica 150 mg qd and 200 mg at HS Essential hypertension 60540037 I10 continue lisinopril 5 mg dailyconti nue metoprolol 50 mg bidfurosem oxana 40 mg dailymonit or BP /labs Hypothyroidism 06315854 E03.9 continue levothyrox ine 200 mcgtsh 8- recheck labs in 6-8 weeks Constipation 59926616 K5 9.09 she reports that she has [...] evening, will order imaging.in crease oral hydration [id number] MIRI NORTON VINI DOWLING [address] [place] [address] 09/15/2023 09:07:09 09/21/2023 10:30:12 Amputated below knee 834286487 Z89.519 right below knee amputation .continue oxycodone 5 mg q 6 prncontinu e PT/OT eval and treatment for conditioni ng and strengthen ing.contin ue wound care Betadine, dry gauze, the stump telegraphic typewriter repairer and the amputation shield. Peripheral vascular disease 672760933 I73.9 s/p below knee amputation continue asa, plavix and eliquiscon tinue oxycodone Q 6continue lyrica 150 mg qd and 200 mg at HS Essential hypertension 10738168 I10 continue lisinopril 5 mg dailyconti nue metoprolol 50 mg bidfurosem oxana 40 mg dailymonit or BP /labs Hypothyroidism 84420015 E03.9 labs completed on 09/06 seen today and noted with TSH 16.3 and T4 5.1she is currently taking levothyrox ine 200 mcg daily, will increase to 225 mcg and recheck 10/26 or sooner.she reports being tired at times but is not having any other sx at this time Constipation 73340633 K5 9.09 see hpinormact felipe bowel soundscont inue colace 100 mg bidcontinu e miralax 17 gm daily and increase senna 8.6 mg to BID [id number] Afia Tierney MD [address] [place] [address] 09/19/2023 15:52:03 09/21/2023 10:49:23 Amputated below knee 050083117 Z89.511 As above. Peripheral vascular disease 543911815 I73.89 S/P right BKA.Contin ue Plavix 75 [...] stapes out then and then can start telegraphic typewriter repairer.P rosthetics consult when ready. Essential hypertension 79577485 I10 BP remains in good control on lisinopril 5 mg qd, metoprolol 50 mg BID, and furosemide 40 mg qdMonitor BP and labs. Hypothyroidism 88205433 E03.9 Last TSH sl. high, with nl FT4, but low FT3.Contin ue levothyrox ine 225 mcgRecheck TSH as planned. Constipation 01530732 K5 9.09 No c/o today.Cont inue bowel meds as ordered.Mo nitor bowel function. Carotid ar dahlia stenosis 72629278 I65.29 S/P stent placement in 06/2023.To be on ASA and Plavix x 3 months.The n can stop Plavix.To have repeat U/S next month [id number] MIRI NORTON [facility] [address] [place] [address] 09/22/2023 13:52:47 09/23/2023 15:18:26 Amputated below knee 969609319 Z89.519 right below knee amputation .continue oxycodone 5 mg q 6 prncontinu e PT/OT for conditioni ng and strengthen ing.contin ue wound care Betadine, dry gauze, the stump telegraphic typewriter repairer and the amputation shield.lupe sing states wound healing without s/sx of infection. Peripheral vascular disease 357946713 I73.9 continue asa, plavix and eliquiscon tinue oxycodone Q 6continue lyrica 150 mg qd and 200 mg at HS Essential hypertension 54198446 I10 continue lisinopril 5 mg dailyconti nue metoprolol 50 mg bidfurosem oxana 40 mg dailymonit or BP /labs Hypothyroidism 98733675 E03.9 Continue levothyrox ine 225 mcgrecheck TSH around 10/[id number] [facility] [address] [place] [address] 09/27/2023 11:23:38 10/18/2023 07:43:35 Amputated below knee 929858656 Z89.519 right below knee amputation .continue oxycodone 5 mg q 6 prncontinu e PT/OT for conditioni ng and strengthen ing.contin ue wound care Betadine, dry gauze, the stump telegraphic typewriter repairer and the amputation shield.lupe sing states wound healing without s/sx of infection. Peripheral vascular disease 972475212 I73.9 continue asa, plavix and eliquiscon tinue oxycodone Q 6continue lyrica 150 mg qd and 200 mg at HS Essential hypertension 27894821 I10 continue lisinopril 5 mg dailyconti nue metoprolol 50 mg bidfurosem oxana 40 mg dailymonit or BP /labs Hypothyroidism 33191629 E03.9 Continue levothyrox ine 225 mcgrecheck TSH around 8 Anxiety 29520665 F41.9 continue ativan 0.5 mg q6 prnshe has agreed to try antidepres santshe was started on fluoxetine 20 mg daily on 09/18will monitor mood and behavior Diabetes mellitus 911143 09 E11.9 no recent BGL, will order weekly checks.con tinue metformin 500 mg BIDcontinu e to monitor FS [id number] MIRI NORTON [address] [address] 10/04/2023 09:15:00 10/18/2023 08:13:38 Amputated below knee 263198155 Z89.519 right below knee amputation .continue oxycodone 5 mg q 6 prncontinu e PT/OT for conditioni ng and strengthen ing.contin ue wound care Betadine, dry gauze, the stump telegraphic typewriter repairer and the amputation shield.lupe [place] states wound healing without s/sx of infection. she will have remaining stable removed this upcoming friday 10/06. Peripheral vascular disease 566008109 I73.9 continue asa, plavix and eliquiscon tinue oxycodone Q 6continue lyrica 150 mg qd and 200 mg at HS Essential hypertension 09165429 I10 continue lisinopril 5 mg dailyconti nue metoprolol 50 mg bidfurosem oxana 40 mg dailymonit or BP /labs Hypothyroidism 10334538 E03.9 Continue levothyrox ine 225 mcgrecheck TSH around 10/26 Anxiety 44928386 F41.9 continue ativan 0.5 mg q6 prnshe has agreed to try antidepres santshe was started on fluoxetine 20 mg daily on 09/18will monitor mood and behavior Diabetes mellitus 841377 09 E11.9 no recent BGL, will order weekly checks.con tinue metformin 500 mg BIDcontinu e to monitor FS7/724 BGL 120 [id number] MIRI NORTON [address] [address] 10/06/2023 08:54:05 10/18/2023 08:26:39 Amputated below knee 015030001 Z89.519 right below knee amputation .continue oxycodone 5 mg q 6 prn- will change to 24 prn and eventually stop of noted she has not used in 3 days.galindo nue PT/OT for conditioni ng and strengthen ing.contin ue wound care Betadine, dry gauze, the stump telegraphic typewriter repairer and the amputation shield.wou nd healing without s/sx of infection. she will have remaining nehemias removed this upcoming friday 10/06. Peripheral vascular disease 321892743 I73.9 continue asa, plavix and eliquiscon tinue oxycodone Q 6continue lyrica 150 mg qd and 200 mg at HS Essential hypertension 74080249 I10 continue lisinopril 5 mg dailyconti nue metoprolol 50 mg bidfurosem oxana 40 mg dailymonit or BP /labs Anxiety 46751271 F41.9 continue ativan 0.5 mg q6 prnshe has agreed to try antidepres santshe was started on fluoxetine 20 mg daily on 09/18[facility] monitor mood and behavior [id number] [facility] [address] [place] [phone] 10/10/2023 10:05:30 10/18/2023 09:02:23 Amputated below knee 307119818 Z89.519 right below knee amputation .remaining nehemias removed on 10/07/23- she has small superficia l open area moist and draining scant serous output. wound care for to cleanse with NS and apply aquacel cover with gauze.cont inue oxycodone 5 mg q 12 prn-contin ue PT/OT for conditioni ng and strengthen ing.contin ue wound care, the stump telegraphic typewriter repairer and the amputation shieldwoun d healing without s/sx of infection. Peripheral vascular disease 510988879 I73.9 continue asa, plavix and eliquiscon tinue oxycodone Q 6continue lyrica 150 mg qd and 200 mg at HS Essential hypertension 40295877 I10 BP has been underconti nue lisinopril 5 mg dailyconti nue metoprolol 50 mg bidfurosem oxana 40 mg dailymonit or BP /labs Anxiety 36778649 F41.9 continue ativan 0.5 mg q6 prnshe has agreed to try antidepres santshe was started on fluoxetine 20 mg daily on 09/18will monitor mood and behavior Carotid ar dahlia stenosis 45461222 I65.29 10/09:Histo ry of bilateral TCAR and [...] whether to reinterven e on the stent. [id number] Tere HerreraMariajose MARTINI JOSEY [address] [facility] [place] [address] 10/14/2023 09:41:31 10/18/2023 09:28:24 Amputated below knee 653087600 Z89.519 does not need wrap. healedappl y skin prep BID nsg updated.wo rking with PTpain controlled . Vascular dementia 957311 004 F01.54 chronis stablediff iculty to recall thoughts and respond to questions. mood stablecont inue supportive caremonito r for decline. [id number] ZENOBIA BRADLEY JOSEY [address] [facility] [place] [address] 10/20/2023 09:58:42 10/22/2023 09:32:05 Amputated below knee 192682115 Z89.519 right below knee amputation .remaining nehemias removed on 10/07/23- continues to heal well.stop oxycodone 5 mg q 12 prn due to minimal usecontinu e PT/OT for conditioni ng and strengthen ing.contin ue wound care, the stump telegraphic typewriter repairer and the amputation shieldwoun d healing without s/sx of infection. Peripheral vascular disease 340979795 I73.9 continue asa, plavix and eliquiscon tinue lyrica 150 mg qd and 200 mg at HS for pain mgmt Essential hypertension 62701305 I10 VSS, BP soft on occasionco ntinue lisinopril 5 mg dailyconti nue metoprolol 50 mg bidfurosem oxana 40 mg dailymonit or BP /labs Anxiety 44715684 F41.9 continue ativan 0.5 mg q6 prn - occasional use, discussed with nsg. will renew for another 14 days.Dulox etine 20 mg daily recently started, orly. well so far, nsg. feels it has been helping mood and behaviors. Continue to monitorPsy ch following as well. Carotid ar dahlia stenosis 06116767 I65.29 History of bilateral TCAR and left [...] ultrasound , plavix, and follow up appt. [id number] MIRI NORTON [address] [place] [address] 10/25/2023 10:59:01 10/26/2023 15:44:22 Amputated below knee 377978039 Z89.519 right below knee amputation , continues to heal well.now open to air ,wound healing without s/sx of infection. continue tylenol and lyrica Peripheral vascular disease 379063267 I73.9 continue asa, plavix and eliquiscon tinue lyrica 150 mg qd and 200 mg at HS for pain mgmtwill discuss need to continue plavix at vascular appt 10/28/23 Essential hypertension 46841110 I10 continue lisinopril 5 mg dailyconti nue metoprolol 50 mg bidfurosem oxana 40 mg dailymonit or BP /labs Anxiety 45460879 F41.9 continue ativan 0.5 mg q6 prn - occasional use, discussed with nsg. will renew for another 14 days.Dulox etine 20 mg daily recently started, orly. well so far, nsg. feels it has been helping mood and behaviors. - seen by psychologist personnel on 10/23 reports feeling some improvemen t with duloxetine , recommende d to continueCo ntinue to monitorPsy ch following as well. Carotid ar dahlia stenosis 37363600 I65.29 History of bilateral TCAR and left [...] will be discussed at that appointmen t. [id number] MIRI NORTON [address] [place] [address] 10/26/2023 12:11:32 10/31/2023 16:07:08 COVID-19 771662930 U07.1 see hpiwill started paxlovid, isolation precaution supportati ve treatment: with mucinex 600 mg BID for 5 dayspaxlov id as orderedprn neb tx for sob. [id number] MIRI NORTON [address] [place] [address] 10/31/2023 16:29:45 11/01/2023 13:09:54 COVID-19 300693193 U07.1 she has been stable no reportable sx notedwill received last dose of paxlovid tonightiso lation precaution continue supportati ve treatment: prn neb tx for sob. Amputated below knee 299 816351 Z89.519 right below knee amputation , continues to heal well.now open to air ,wound healing without s/sx of infection. continue tylenol and lyrica Peripheral vascular disease 087720123 I73.9 continue asa, plavix and eliquiscon tinue lyrica 150 mg qd and 200 mg at HS for pain mgmtwill discuss need to continue plavix at vascular appt 10/28/23 Essential hypertension 22658116 I10 continue lisinopril 5 mg dailyconti nue metoprolol 50 mg bidfurosem oaxna 40 mg dailymonit or BP /labs Anxiety 26384950 F41.9 continue ativan 0.5 mg q6 prn -continue Duloxetine 20 mg dailymood has been good.Galindo nue to monitorPsy ch following as well. Carotid ar dahlia stenosis 33980503 I65.29 History of bilateral TCAR and left [...] will be discussed at that appointmen tCandis [id number] MIRI NORTON [address] [place] [address] rd [place]NANDEZ [address] 11/04/2023 09:52:30 11/08/2023 11:09:10 COVID-19 392707357 U07.1 completed anti-viral . Amputated below knee 299 346196 Z89.519 right below knee amputation , continues to heal well.now open to air ,wound healing without s/sx of infection. continue tylenol and lyrica Peripheral vascular disease 570905259 I73.9 continue asa, plavix and eliquis- on hold for now for melenacont inue lyrica 150 mg qd and 200 mg at HS for pain mgmt Essential hypertension 18210243 I10 continue lisinopril 5 mg dailyconti nue metoprolol 50 mg bidfurosem oxana 40 mg dailymonit or BP /labs Anxiety 83322432 F41.9 continue ativan 0.5 mg q6 prn -continue Duloxetine 20 mg dailyConti nue to monitorPsy ch following as well. Carotid ar dahlia stenosis 82010535 I65.29 History of bilateral TCAR and left [...] be discussed at that appointmen tCandis Chamberlain [id number] K92.1 11/02: nursing report black tarry stool, [...] hematemesi s, weakness, dizziness and or pallor. [id number] MIRI NORTON [address] [place] [address] [place]DE[place] [address] 11/07/2023 08:49:06 11/09/2023 10:55:24 Melena 2528539 K92.1 11/06: continue to have black tarry [...] s, weakness, dizziness and or pallor. Anemia 706394173 D64.9 H/H trending down today noted at 09/12-signi ficant drop in 7 days tested 3 times. continue ferrous sulfate 325 mg dailycont. Vit D 1000u daily [id number] ZENOBIA Ulloa [address] [place] [address] [place] [address] 11/12/2023 07:51:13 11/18/2023 09:17:41 Anemia 717435493 D64.9 per [facility] summary: Held Eliquis, aspirin and Plavix since [...] obtained with hemoglobin 6 on admission to [facility],No reports of blood in stool [...] bmp weekly on mondays x 3 Esophagitis 31573661 K20 .90 no melena noted in hospital, [...] bmp weekly on mondays x 3 Anxiety 75539413 F41.9 while in hopsital her ativan 0.5 mg q6 prn was discontinu edcontinue Duloxetine 20 mg dailyConti nue to monitorPsy ch following as well. Hypothyroidism 21299911 E03.9 adjusted in hospitalco nt levothyrox ine 200 mcg po dailyreche ck tsh in 8 weeksmonit or Essential hypertension 52857394 I10 bp initially soft in hospital, lisinopril was held, now resolved and resumedcon tlisinopri l 5 mg po dailymetop rolol 50 mg po q 12 hoursmonit or Amputated below knee 299 501582 Z89.519 right below knee amputation , continues to heal well.galindo nue tylenol and lyricafu with vascular as planned Peripheral vascular disease 587514245 I73.9 eliquis on holdcontin ueasa, plavixlyri ca 150 mg qdmonitor Pressure i njury of coccygeal region of back stage II 6104501050 8922172 L89.152 healing denuded skin to right coccyx11/11 apply barrier cream topically bid and prnfrequen t brief changes and reposition ingmonitor for infection Vascular dementia 890712 004 F01.54 stablediff iculty to recall thoughts and respond to questions at baseline per staffmood stablecont inue supportive caremonito r for decline. [id number] MIRI NORTON [address] [place] [address] [place] [address] 11/14/2023 09:54:52 11/18/2023 10:04:39 Esophagitis 98521619 K20.90 no melena noted in hospital, but [...] bmp weekly on mondays x 3 Anemia 234804299 D64.9 per [facility] summary: Held Eliquis, aspirin and Plavix since [...] obtained with hemoglobin 6 on admission to [facility],No reports of blood in stool [...] bmp weekly on mondays x 3 Anxiety 84007420 F41.9 while in hopsital her ativan 0.5 mg q6 prn was discontinu edcontinue Duloxetine 20 mg dailyConti nue to monitorPsy ch following as well. Hypothyroidism 44447572 E03.9 adjusted in hospitalco nt levothyrox ine 200 mcg po dailyreche ck tsh in 8 weeksmonit or Essential hypertension 68827816 I10 bp initially soft in hospital, lisinopril was held, now resolved and resumedcon tlisinopri l 5 mg po dailymetop rolol 50 mg po q 12 hoursmonit or Amputated below knee 299 350663 Z89.519 right below knee amputation , continues to heal well.galindo nue tylenol and lyricafu with vascular as planned Peripheral vascular disease 115258086 I73.9 eliquis on holdcontin ueasa, plavixlyri ca 150 mg qdmonitor Pressure i njury of coccygeal region of back stage II 2046638984 3683304 L89.152 healing denuded skin to right coccyx11/11 apply barrier cream topically bid and prnfrequen t brief changes and reposition ingmonitor for infection Vascular dementia 069661 004 F01.54 stablediff iculty to recall thoughts and respond to questions at baseline per staffmood stablecont inue supportive caremonito r for decline. [id number] MIRI NORTON [address] [address] 11/17/2023 14:04:30 11/23/2023 09:14:45 Anxiety 00045908 F41.9 stableDulo xetine 20 mg dailyConti nue to monitorPsy ch following as well. Hypothyroidism 99564316 E03.9 adjusted in hospitalco nt levothyrox ine 200 mcg po dailyreche ck tsh in 8 weeksmonit or Essential hypertension 60451030 I10 stable-lis inopril 5 mg po dailymetop rolol 50 mg po q 12 hoursmonit or Amputated below knee 299 270993 Z89.519 right below knee amputation , continues to heal well.galindo nue tylenol and lyricafu with vascular as planned Peripheral vascular disease 488562736 I73.9 eliquis stoppedcon tinue:asa, plavixlyri ca 150 mg qdmonitor Vascular dementia 866759 [address] declinebas sahara difficulty with word findingmoo d stablecont inue supportive caremonito r for decline. Anemia 428549043 D64.9 continuefe rrous sulfate 325 mg dailycont. Vit D 1000u dailymonit or cbc and bmp weekly on mondays x 3 [id number] MIRI NORTON [address] [address] 11/21/2023 11:10:23 11/23/2023 10:20:09 Anxiety 71754197 F41.9 stableDulo xetine 20 mg dailyConti nue to monitorPsy ch following as well. Hypothyroidism 80337412 E03.9 adjusted in hospitalco nt levothyrox ine 200 mcg po dailyreche ck tsh in 8 weeksmonit or Essential hypertension 79644011 I10 stable-lis inopril 5 mg po dailymetop rolol 50 mg po q 12 hoursmonit or Amputated below knee 299 767981 Z89.519 right below knee amputation , continues to heal well.galindo nue tylenol and lyricafu with vascular as planned Peripheral vascular disease 714527525 I73.9 eliquis stoppedcon tinue:asa, plavixlyri ca 150 mg qdmonitor Vascular dementia 479168 [address] declinebas sahara difficulty with word findingmoo d stablecont inue supportive caremonito r for decline. Anemia 510746392 D64.9 continuefe rrous sulfate 325 mg dailycont. Vit D 1000u dailymonit or cbc and bmp weekly on mondays x 3 [id number] MIRI NORTON [address] [address] 11/29/2023 10:14:07 12/01/2023 14:32:41 Anxiety 76896412 F41.9 stablecont inue duloxetine 20 mg daily- she is having a positive response with med.Contin ue to monitorupd ate HDBH with concerns. Hypothyroidism 09697094 E03.9 adjusted in hospitalco nt levothyrox ine 200 mcg po dailyreche ck tsh in 8 weeks- ord for . 11/18monito r Essential hypertension 10836774 I10 continue lisinopril 5 mg po dailyconti nue metoprolol 50 mg po q 12 hoursmonit or Amputated below knee 299 692246 Z89.519 right below knee amputation , continues to heal well.galindo nue tylenol and lyricafu with vascular as planned Peripheral vascular disease 006215801 I73.9 eliquis stoppedcon tinue:asa, plavixlyri ca 150 mg qdmonitor Vascular dementia 417574 004 F01.54 expect declinebas sahara difficulty with word findingmoo d stablecont inue supportive caremonito r for decline. Anemia 168777335 D64.9 continuefe rrous sulfate 325 mg dailycont. Vit D 1000u dailymonit or cbc and bmp weekly on mondays x 39/3: H/H has been stable increasing every week. [id number] MRII NORTON [address] [address] 12/01/2023 11:44:42 12/05/2023 13:22:49 Amputated below knee 605287375 Z89.519 right below knee amputation open wound noted on stump concerning for infection, yellowish drainage noted on dressing ,will send culture.co ntinue tylenol and lyricafu with vascular as planned Peripheral vascular disease 441446246 I73.9 eliquis stoppedcon tinue:asa, plavixlyri ca 150 mg qdmonitor Vascular dementia 038254 004 F01.54 expect declinebas sahara difficulty with word findingmoo d stablecont inue supportive caremonito r for decline. [id number] MIRI NORTON [address] [address] 12/05/2023 09:49:14 12/07/2023 10:15:18 Amputated below knee 601839729 Z89.519 right below knee amputation wound culture pendingcon tinue tylenol and lyricafu with vascular as planned Peripheral vascular disease [id number] I73.9 eliquis stoppedcon tinue:asa, plavixlyri ca 150 mg qdmonitor Vascular dementia 636461 004 F01.54 expect declinebas sahara difficulty with word findingmoo d stablecont inue supportive caremonito r for decline. [id number] MIRI NORTON [address] [address] 12/12/2023 08:48:56 12/14/2023 08:51:51 Amputated below knee [id number] Z89.519 right below knee amputation continue tylenol and lyricafu with vascular as planned on 12/16/23 Peripheral vascular disease [id number] I73.9 eliquis stoppedcon tinue:asa, plavixlyri ca 150 mg qdmonitor Vascular dementia 898152 004 F01.54 expect declinebas sahara difficulty with word findingmoo d stablecont inue supportive caremonito r for decline. Subconjunc tival hemorrhage of left eye [id number] 38212 H11.32 no pain or visual changesnur sing to update provider for changes in vision, pain or discharge. can apply warm compress for comfort if irritated. 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 Peripheral vascular disease [id number] I73.9 12/15 carotid duplex shows 70 to 99% stenosis in her right ICA, this is s/p TCAR and she has a patent stent. Her left side shows 1 to 49% stenosis in the ICA with a patent stent.repe at duplex in 6 months eliquis stoppedcon tinue:asa, plavixlyri ca 150 mg qdmonitor Vascular dementia 527340 004 F01.54 expect declinebas sahara difficulty with word findingmoo d stablecont inue supportive caremonito r for decline. Subconjunc tival hemorrhage of left eye [id number] 02856 H11.32 resolvingn o pain or visual changesnur sing to update provider for changes in vision, pain or discharge. can apply warm compress for comfort if irritated. monitor for worsening sx, pt is on asa and plavix daily.H/H stable , will continue to monitor Insomnia [id number] G47.0 0 see HPIstop melatonins tart trazodone 50 mg at HSmonitor for effectiven ess [id number] MIRI NORTON VINI JOSEY [address] [place] [address] 12/22/2023 11:08:23 12/23/2023 12:52:01 Amputated below knee [id number] Z89.519 right below knee amputation continue tylenol [...] and promote wound healing. Peripheral vascular disease 062793968 I73.9 12/15 carotid duplex shows 70 to [...] plavixlyri ca 150 mg qdmonitor Vascular dementia 968961 004 F01.54 expect declinebas sahara difficulty with word findingmoo d stablecont inue supportive caremonito r for decline. Subconjunc tival hemorrhage of left eye [id number] 99907 H11.32 resolvingn o pain or visual changesnur sing to update provider for changes in vision, pain or discharge. can apply warm compress for comfort if irritated. monitor for worsening sx, pt is on asa and plavix daily.H/H stable , will continue to monitor Insomnia 170305754 G47.0 0 continue trazodone 50 mg at HS- will reassess at next visit.prakash cat for effectiven essdiscuss ed with patient avoiding caffeine drinks before bed, antidepres nuria and BP meds can causes insomnia. we discussed trying relaxation techniques such as deep breathing and guided imagery. [id number] MIRI NORTON [address] [facility] [place] [address] 12/27/2023 14:42:28 12/28/2023 11:41:01 Amputated below knee [id number] Z89.519 right below knee amputation continue tylenol [...] and promote wound healing. Peripheral vascular disease 538458506 I73.9 12/15 carotid duplex shows 70 to [...] plavixlyri ca 150 mg qdmonitor Vascular dementia 270337 004 F01.54 expect declinebas sahara difficulty with word findingmoo d stablecont inue supportive caremonito r for decline. Subconjunc tival hemorrhage of left eye [id number] 68773 H11.32 resolvingn o pain or visual changesnur sing to update provider for changes in vision, pain or discharge. can apply warm compress for comfort if irritated. monitor for worsening sx, pt is on asa and plavix daily.H/H stable , will continue to monitor Insomnia 566622169 G47.0 0 continue trazodone 50 mg at HS- will reassess at next visit.prakash cat for effectiven essdiscuss ed with patient avoiding caffeine drinks before bed, antidepres nuria and BP meds can causes insomnia. we discussed trying relaxation techniques such as deep breathing and guided imagery. [id number] MIRI NORTON [address] [place] [address] 01/02/2024 08:33:03 01/03/2024 11:47:07 Amputated below knee [id number] Z89.519 followed closely by vascular.r ight below [...] and promote wound healing. Peripheral vascular disease 016906188 I73.9 12/15 carotid duplex shows 70 to [...] plavixlyri ca 150 mg qdmonitor Vascular dementia 152699 [address] declinebas sahara difficulty with word findingmoo d stablecont inue supportive caremonito r for decline. Subconjunc tival hemorrhage of left eye [id number] 13210 H11.32 resolvingn o pain or visual changesnur sing to update provider for changes in vision, pain or discharge. can apply warm compress for comfort if irritated. monitor for worsening sx, pt is on asa and plavix daily.H/H stable , will continue to monitor Insomnia 700569042 G47.0 0 continue trazodone 50 mg at [...] Member ID Guarantor Name 12/28/2023 2 [place] [facility] Marixa Chan [id number] Marixa Chan 12/27/2023 1 MEDICARE B[place]: [employer] Marixa Chan [id number] Marixa Chan Notes Date Note Type Note [...] for acute rounding visit MIRI NORTON 38 [facility], [facility] [address], [place], [address], [employer] 12/12/2023 14:39:04 12/19/2023 text/html ROS as noted [...] playing television all night. MIRI NORTON [address] [facility], [address], [place], [address], [employer] 12/20/2023 15:35:55 12/22/2023 text/html ROS as noted [...] have a stump strinker. MIRI NORTON 38 [facility] [address], [place], [address], [facility] [employer] 12/22/2023 16:22:53 12/27/2023 text/html ROS as noted [...] not have a stump strinker. MIRI NORTON [address] [place] [address] [address], [place], [address], [facility] [employer] 12/27/2023 15:20:31 01/02/2024 text/html ROS as noted [...] have a stump strinker. MIRI NORTON 38 [facility], [facility] [address], [place], [address], [facility] [employer] 01/02/2024 13:22:00 OBGyn Episode No OBEpisode recorded.
--- OUTSIDE RECORDS SUMMARY | 2025-02-11 07:02 | XMS_ITS | Encounter Summary ---
Author Organization [facility] Address [address] [place] [address] Phone Care Team Providers Care Green Chain Off Bearer Name Role Phone Agueda Ann MD Primary Care Provider [phone] Andie Rossi MD Unavailable West Doll MD Unavailable Britany Coles MD Unavailable Naun Hoang MD Unavailable + Agueda Ann MD Unavailable Mely Bhatti RN Unavailable [email or web address] Encounter Details Date Type Department Care Team (Late st Contact Info) Description 12/24/2022 Procedure Pass [facility] [address] [place] [address] Social History Tobacco Use Types Packs/Day Years [...] 12/24/2022 9:29 AM Natalya Menon, NICOLE * Rankin Suicide Severity Rating Scale [...] documented as of this encounter Care Teams Green Chain Off Bearer Relationship Specialty Start Date End Date Agueda Ann MD [address] [address] [email or web address] PCP - General Family Medicine 02/01/19 Andie Rossi MD [address] [place] [address] Neurology 03/02/19 West Doll MD [address] [place] [address] 104 [place] [address] Cardiology 03/02/19 Britany Coles MD [address] [place] [address] 140 [place] [phone] [email or web address] Orthopedic Surgery 03/02/19 Naun Hoang MD [address] [place] [address] Infectious Diseases 03/02/19 Agueda Ann MD [address] [address] [email or web address] Insurance Assigned Provider 4/6/24 1/6/25 Mely Bhatti, RN [address] [place] [address] [email or web address] 05/12/23 06/09/23 documented as of this encounter Additional Source Comments The information contained in this document represents components of the legal health record. It is not the complete legal health record.[facility]
--- OUTSIDE RECORDS SUMMARY | 2025-02-11 07:02 | XMS_ITS | Encounter Summary ---
Author Organization [facility] Address [address] [place] [address] Phone Care Team Providers Care Night Worker Name Role Phone Agueda Ann MD Primary Care Provider [phone] Andie Rossi MD Unavailable [phone] West Doll MD Unavailable Britany Coles MD Unavailable Naun Hoang MD Unavailable + Agueda Ann MD Unavailable Mely Bhatti RN Unavailable [email or web address] Encounter Details Date Type Department Care Team (Late st Contact Info) Description 12/25/2022 Procedure Pass Non-Invasive Cardiology 30 [place] [address] Social History Tobacco Use Types Packs/Day Years [...] high school, GED, job training, learning the Greek language, technical skills, or developing parenting skills)? [...] documented as of this encounter Care Teams Night Worker Relationship Specialty Start Date End Date Agueda Ann MD [address] [place] [address] [email or web address] PCP - General Family Medicine 02/01/19 Andie Rossi MD 48 [place] [address] Neurology 03/02/19 West Doll MD [address] [place] [address] 104 [place] [address] Cardiology 03/02/19 Britany Coles MD [address] [place] [address] 140 [place] [phone] Orthopedic Surgery 03/02/19 [place] [address] [place] [address] Infectious Diseases 03/02/19 Agueda Ann MD [address] [address] [email or web address] Insurance Assigned Provider 07/02/23 04/02/24 Mely Bhatti RN [address] [address] [email or web address] PHCM Floor Steward/Stewardess 05/12/23 06/09/23 documented as of this encounter Additional Source Comments The information contained in this document represents components of the legal health record. It is not the complete legal health record.[facility]
--- OUTSIDE RECORDS SUMMARY | 2025-02-11 07:02 | XMS_ITS | Encounter Summary ---
Author Organization [facility] Address [address] [place] [address] Phone Care Team Providers Care Clam Shucker Name Role Phone Agueda Ann MD Primary Care Provider [phone] Andie Rossi MD Unavailable [phone] West Doll MD Unavailable [phone] Britany Coles MD Unavailable [phone] Naun Hoang MD Unavailable + Agueda Ann MD Unavailable Mely Bhatti RN Unavailable [email or web address] Encounter Details Date Type Department Care Team (Late st Contact Info) Description 12/25/2022 Procedure Pass [facility] [address] [place] [address] Social History Tobacco Use Types Packs/Day Years [...] high school, GED, job training, learning the [place] language, technical skills, or developing parenting skills)? [...] documented as of this encounter Care Teams Clam Shucker Relationship Specialty Start Date End Date Agueda Ann MD [address] [place] [address] [email or web address] PCP - General Family Medicine 02/01/19 Andie Rossi MD 48 [place] [address] Neurology 03/02/19 West Doll MD [address] [place] [address] 104 [place] [address] Cardiology 03/02/19 Britany Coles MD [address] [place] [address] 140 [place] [phone] Orthopedic Surgery 03/02/19 [place] [address] [place] [address] Infectious Diseases 03/02/19 Agueda Ann MD [address] [address] [email or web address] Insurance Assigned Provider 07/02/23 04/02/24 Mely Bhatti RN [address] [address] [email or web address] PHCM Preschool Program Director 05/12/23 06/09/23 documented as of this encounter Additional Source Comments The information contained in this document represents components of the legal health record. It is not the complete legal health record.[facility]
--- OUTSIDE RECORDS SUMMARY | 2025-02-11 07:02 | XMS_ITS | Encounter Summary ---
Author Organization [facility] Address [address] [place] [address] Phone Care Team Providers Care New Car Make Ready Mechanic Name Role Phone Agueda Ann MD Primary Care Provider [phone] Andie Rossi MD Unavailable [phone] West Doll MD Unavailable Britany Coles MD Unavailable [phone] Naun Hoang MD Unavailable + Agueda Ann MD Unavailable Latosha Garcia OT Unavailable [phone] Latosha Garcia OT Unavailable [phone] Mely Bhatti RN Unavailable [email or web address] Encounter Details Date Type Department Care Team (Late st Contact Info) Description 10/04/2019 Ancillary Orders [facility] 30 [place] [address] System, Provider Not In, [facility] [address] [address] Social History Tobacco Use Types Packs/Day Years [...] documented as of this encounter Care Teams New Car Make Ready Mechanic Relationship Specialty Start Date End Date Agueda Ann MD [address] [address] PCP - General Family Medicine 02/01/19 Andie Rossi MD [address] [place] [address] Neurology 03/02/19 West Doll MD [address] [place] [address] 104 [place] [address] Cardiology 03/02/19 Britany Coles MD [address] [place] [address] 140 [place] [phone] [employer] Orthopedic Surgery 03/02/19 [place] [address] [place] [address] Infectious Diseases 03/02/19 Agueda Ann MD [address] [address] [email or web address] Insurance Assigned Provider 07/02/23 04/02/24 Latosha Garcia, OT 30 [place] [address] [email or web address] Transitions Manager [employer] 11/05/22 11/07/22 Latosha Garcia, OT 30 [place] [address] [email or web address] Transitions Manager Of [employer] 11/24/22 11/25/22 Mely Bhatti, NICOLE [address] [place] [address] [email or web address] Center[facility] Manager Of Care 05/12/23 06/09/23 documented as of this encounter Additional Source Comments The information contained in this document represents components of the legal health record. It is not the complete legal health record.[facility]
== END 2025-02-11 06:55 | disposition home or self-care (01) ==
LOC: HO.MMNH3L 06:54
PROVIDERS: Visit Provider Student in an Organized Health Care Education/Training Program
DX: I69.398 Other sequelae of cerebral infarction (principal); I25.9 Chronic ischemic heart disease, unspecified; E03.9 Hypothyroidism, unspecified; Z89.611 Acquired absence of right leg above knee
CPT/HCPCS: 36415; 80048; 85025

== ENCOUNTER 2025-02-18 06:29 | Outpatient (REF) | payer MEDICARE, MEDICAID, SELFPAY ==
[2025-02-18 05:59] LABS: MANUAL DIFF FLAG NO
--- OUTSIDE RECORDS SUMMARY | 2025-02-18 06:31 | XMS_ITS | Data Portability ---
Author Organization [facility], Main Office Address [address] [address] [address] [place] [address] Care Team Providers Care Pododermatologist Name Role Phone VINI DOWLING 1ST FLOOR OTHER BEBE GUTIERREZ Primary Care Provider [phone] Assessment Encounter Date Assessment Date Assessment LastModified [...] Address Organization Details Recorded Time Diabetes mellitus 23018059 Active 2023 MIRI NORTON [address] [facility], [address], [place], [address], [facility] 4 20:18:04 Essential hypertensio n 15208412 Active 2023 MIRI NORTON [address] [facility], [address], [place], [address], [facility] 4 20:18:10 Hyperlipide reinier 04771462 Active 2023 MIRI NORTON [address] [place] [address], [address], [place], [address], [facility] 4 20:18:16 Femoral-pop liteal artery bypass graft Completed 202309/01/2023 MIRI NORTON [address] [place] [address], [address], [place], [address], [facility] 4 22:16:23 Anemia 199653392 Active 2023 MIRI NORTON [address] [place] [address], [address], [place], [address], [facility] 4 20:20:45 Cerebrovasc ular accident 399559471 Active 2023 MIRI NORTON [address] [place] [address], [address], [place], [address], [facility] 4 20:21:06 Femoro-ante rior tibial bypass graft Completed 202309/01/2023 MIRI NORTON [address] [place] [address], [address], [place], [address], [facility] 4 22:16:23 Chronic kidney disease stage 3 020943317 Active 2023 MIRI NORTON [address] [place] [address], [address], [place], [address], [facility] 4 20:28:49 Peripheral vascular disease 381308895 Active 2023 MIRI NORTON [address] [place] [address], [address], [place], [address], [place] [facility] 20:29:56 Asthenia 45557927 Active 2023 PÉREZ LUNDBERG, MIRI [address], [address], [place], [address], [facility] 20:30:45 Insomnia 702818862 Active 2023 PÉREZ LUNDBERG, MIRI [address], [address], [place], [address], [facility] 4 21:49:49 Constipatio n 60564131 Active 2023 MIRI NORTON [address], [address], [place], [address], [facility] 4 21:52:14 Acute kidney injury 89867135 Active 2023 MIRI NORTON [address], [address], [place], [address], [facility] 4 21:56:55 Hypocalcemi a 5988777 Completed 202309/01/2023 MIRI NORTON [address], [address], [place], [address], [facility] 4 22:16:23 Myasthenia gravis 08749371 Active 2023 MIRI NORTON [address], [address], [place], [address], [facility] 4 22:10:42 Aphasia 85918599 Completed 202309/01/2023 MIRI NORTON [address], [address], [place], [address], [facility] 4 22:16:23 Vascular dementia 016142095 Active 2023 MIRI NORTON [address], [address], [place], [address], [facility] 4 13:06:33 Amputated below knee 765312640 Active 2023 [address]IRI NORTON [address], [address], [place], [address], [facility] 4 16:38:11 Delirium 7946015 Active 2023 [address]IRI NORTON [address], [address], [place], [address], [facility] 4 16:54:43 Dysphagia 18008443 Active [address], [address], [place], [address], [facility] 4 16:55:09 Toxic encephalopa thy 39846498 Active 2023 JOHN NORTONP [address] [facility], [address], [place], [address], [facility] 4 16:55:43 Hypothyroid ism 65475118 Active 2023 JOHN NORTONP [address] [facility], [address], [place], [address], [facility] 4 22:18:37 Anxiety 49217413 Active 2023 PÉREZ LUNDBERG [facility] [address] [facility], [address], [place], [address], [facility] 4 22:24:04 Carotid artery stenosis 72811283 Active 2023 MIRI NORTON [address] [facility], [address], [place], [address], [facility] 4 12:10:00 Problem Notes None [...] rate Respiratory rate Body temperature Oxygen saturation Systolic And Diastolic Provider Name and Address Organization Details Last Updated DateTime 4 165.1 cm 82 /min 18 /min 98 [degF] 97 % 118/68 mm[Hg] MIRI NORTON [address] [facility], [address], [place], [address], [facility] 4 14:16:49 Date Recorded Body height Heart rate Respiratory rate Body temperature Oxygen saturation Systolic And Diastolic Provider Name and Address Organization Details Last Updated DateTime 4 165.1 cm 73 /min 18 /min 98 [degF] 94 % 111/76 mm[Hg] MIRI NORTON [address] [facility], [address], [place], [address], [facility] 4 11:35:13 Date Recorded Body height Respiratory rate Body temperature Oxygen saturation Heart rate Systolic And Diastolic Provider Name and Address Organization Details Last Updated DateTime 4 165.1 cm 18 /min 98 [degF] 94 % 68 /min 118/71 mm[Hg] MIRI NORTON [address] [facility], [address], [place], [address], [facility] 4 16:01:39 Date Recorded Body height Body mass index (BMI) Body weight Heart rate Respiratory rate Body temperature Oxygen saturation Systolic And Diastolic Provider Name and Address Organization Details Last Updated DateTime 4 165.1 cm 28.6 kg/m2 96739.8 9 g 73 /min 16 /min 98.4 [degF] 100 % 135/68 mm[Hg] MIRI NORTON [address] [facility], [address], [place], [address], [facility] 4 15:14:16 Social History Question Answer Notes LastModified by Organizat ion Details LastModified Time Tobacco Smoking Status Never Smoker MIRI NORTON [address] [facility], [address], [place], [address], [facility] 06/30/2023 02:31:25 Do You Have An Advance [...] Do You Have A Medical Power Of Multimedia Designer? Yes Information not available 07/22/2023 What Was [...] Immunizations Vaccine Type Date Status Note Provider Tirso lerma and Address Organization Details Recorded Time Tdap 9 completed Elle islas [place] - [facility] 07/01/2023 13:25:18 Tdap 8 completed Elle South null, [facility] 07/01/2023 13:25:33 Pneumococcal conjugate PCV20, polysaccharide [id number] conjugate, adjuvant, PF 2 completed Elle South null, [facility] 07/01/2023 13:25:55 pneumococcal polysaccharide PPV23 4 completed Elle Brannon null, [facility] 07/01/2023 13:26:09 pneumococcal polysaccharide PPV23 7 completed Elle Brannon null, [facility] 07/01/2023 13:26:18 influenza, unspecified formulation 2 completed Elle Brannon null, [facility] 07/01/2023 13:26:47 influenza, unspecified formulation 3 completed Elle Brannon null, [facility] 07/01/2023 13:26:55 SARS-COV-2 (COVID-19) vaccine, UNSPECIFIED 1 completed Elle Brannon null, [facility] 07/01/2023 13:27:17 SARS-COV-2 (COVID-19) vaccine, UNSPECIFIED 1 completed Elle Brannon null, [facility] 07/01/2023 13:27:40 SARS-COV-2 (COVID-19) vaccine, UNSPECIFIED 1 completed Elle Brannon null, [facility] 07/01/2023 13:27:55 SARS-COV-2 (COVID-19) vaccine, UNSPECIFIED 2 completed Elle Brannon null, [facility] 07/01/2023 13:28:04 SARS-COV-2 (COVID-19) vaccine, UNSPECIFIED 2 completed Elle Brannon null, [facility] 07/01/2023 13:28:24 SARS-COV-2 (COVID-19) vaccine, UNSPECIFIED 3 completed Elle Brannon null, [facility] 07/01/2023 13:28:37 zoster, unspecified formulation 9 completed Elle Brannon null, [facility] 07/01/2023 13:29:06 zoster, unspecified formulation 9 completed Elle South [facility] 07/01/2023 13:29:21 Past Encounters Encounter ID Performer Location Encounter Start Date Encounter Closed Date Diagnosis/Indication Diagnosis SNOMED-CT Code Diagnosis ICD10 Code Diagnosis IMO Codes Diagnosis Note [id number] MIRI NORTON [address] [facility] [place] [address] 06/29/2023 15:34:40 07/22/2023 14:35:38 Peripheral vascular disease 416180524 I73.9 s/p right femoral endarterec bridget with [...] rightfollo w up with vascular 06/29 Asthenia 62557514 R53.1 hx of myasthenia gravisPT/O T eval and treat Diabetes mellitus 481033 09 E11.9 A1c 5.7 on 06/23hospit al records indicate that she states she is taking for constipati on, she is not sure she is a diabetic.c ontinue metformin 500 mg BIDcontinu e to monitor FSfollow-u p with PCP after discharge for further management Essential hypertension 42480767 I10 continue lisinopril 5 mg dailyconti nue metoprolol 50 mg bidfurosem oxana 40 mg dailymonit or BP /labs Hyperlipidemia 08657192 E78.5 atorvastat in 40 mg dailymonit or lipids prn Insomnia 294604963 G47.0 0 continue melatonin 9 mg hscontinue trazadone 12.5 mg hs prn Constipation 01487604 K5 9.00 continue colace 100 mg bidcontinu e miralax 17 gm dailyincre ase oral hydration Anemia 558782688 D64.9 continue ferrous sulfate 325 mg dailymonit or CBCH&H stable at 7.9/25.1 Hypocalcemia 5699286 E83 .51 continue calcium carbonate 500 mg dailyconti nue cholecalci ferol 1000 u daily Myasthenia gravis 870972 04 G70.00 carrying dxmaintain safety/pre cautionsno t on medication Cerebrovas cular accident 361513250 I63.9 carrying dx Chronic ki dney disease stage 3 204195210 N18.30 mahi resolved in acute careavoid nephrotoxi c medication smonitor labs [id number] MIRI NORTON [facility] [address] [place] [address] 06/30/2023 11:39:21 07/04/2023 14:42:16 Bleeding from nose 897304663 R04.0 uncontroll ed bleeding from right narespt is on multiple anticoag( asa, eliquis and plavix) held this morning.wi ll send to ED for eval and tx. [id number] MIRI NORTON [facility] [address] [place] [address] 07/12/2023 11:03:46 07/19/2023 11:10:58 Open wound of right foot 1454151652 2420912 S91.301A dorsal right foot with wound vacDo Not remove wound vac, she has appt with vascular on 07/13 Surgical i ncision wound of skin 1442333635 00 R23.8 right lateral mid thigh with 22 nehemias right low leg corral 12 staple right lower extremity medial thigh wound with packing Peripheral vascular disease 199278586 I73.9 s/p right femoral endarterec bridget with [...] rightfollo w up with vascular 06/29 Asthenia 09575313 R53.1 hx of myasthenia gravisPT/O T eval and treat Diabetes mellitus 582137 09 E11.9 A1c 5.7 on 06/23hospit al records indicate that she states she is taking for constipati on, she is not sure she is a diabetic.c ontinue metformin 500 mg BIDcontinu e to monitor FSfollow-u p with PCP after discharge for further management Essential hypertension 80278553 I10 continue lisinopril 5 mg dailyconti nue metoprolol 50 mg bidfurosem oxana 40 mg dailymonit or BP /labs Hyperlipidemia 37256977 E78.5 atorvastat in 40 mg dailymonit or lipids prn Insomnia 827246963 G47.0 0 continue melatonin 9 mg hscontinue trazadone 12.5 mg hs prn Constipation 67349256 K5 9.00 continue colace 100 mg bidcontinu e miralax 17 gm dailyincre ase oral hydration Anemia 506375099 D64.9 baseline 7.9-8decre ased to 7.0 due to epistaxiss he was transfused 2 PRBCsconti nue ferrous sulfate 325 mg dailymonit or CBC Hypocalcemia 2454504 E83 .51 continue calcium carbonate 500 mg dailyconti nue cholecalci ferol 1000 u daily Myasthenia gravis 053186 04 G70.00 carrying dxmaintain safety/pre cautionsno t on medication Cerebrovas cular accident 800386070 I63.9 carrying dx Chronic ki dney disease stage 3 519125154 N18.30 mahi resolved in acute careavoid nephrotoxi c medication smonitor labs Aphasia 60172612 R47.01 hx of CVAIntermi ttent aphasia/Wo rd finding difficulty no new stroke seen on brain MRI.Suspec t vascular dementia, may have some hypoperfus ion given her anemia. [id number] MIRI NORTON [address] [place] [address] rd [place] [address] 07/18/2023 10:15:58 07/22/2023 15:25:22 Open wound of right foot 4447997459 3288921 S91.301A s/p wound debridemen t 07/13, will be returning to vascular 07/19 for integra placement and wound vac Surgical i ncision wound of skin 8386587340 00 R23.8 right lateral mid thigh with 22 staplesrig ht low leg corral 12 staplerigh t lower extremity medial thigh wound with packingnur sing to removed on 07/18 ord placed in [facility] Peripheral vascular disease 437681092 I73.9 s/p right femoral endarterec bridget with [...] 6 prncontinu e lidocaine patch right Asthenia 54053052 R53.1 hx of myasthenia gravisPT/O T eval and treat Diabetes mellitus 688740 09 E11.9 A1c 5.7 on 06/23hospit al records indicate that she states she is taking for constipati on, she is not sure she is a diabetic.c ontinue metformin 500 mg BIDcontinu e to monitor FSfollow-u p with PCP after discharge for further management Essential hypertension 57358048 I10 continue lisinopril 5 mg dailyconti nue metoprolol 50 mg bidfurosem oxana 40 mg dailymonit or BP /labs Constipation 52531137 K5 9.00 continue colace 100 mg bidcontinu e miralax 17 gm dailyincre ase oral hydration Anemia 260012546 D64.9 baseline 7.9-8decre ased to 7.0 due to epistaxiss he was transfused 2 PRBCsconti nue ferrous sulfate 325 mg dailymonit or CBC Aphasia 44110687 R47.01 hx of CVAIntermi ttent aphasia/Wo rd finding difficulty no new stroke seen on brain MRI.Suspec t vascular dementia, may have some hypoperfus ion given her anemia. [id number] Afia Tierney MD [address] [place] [address] 07/22/2023 14:24:36 08/15/2023 12:08:31 Open wound of right foot 7611111680 0966538 S91.301A Continue wound care as ordered.F/ U with surgeon as planned for further debridemen t and wound vac placement. Surgical i ncision wound of skin 9109014290 00 R23.8 Wounds healing well.Stale s removed. Peripheral vascular disease 347548104 I73.9 s/p right femoral endarterec bridget with [...] mg q 6 hrs prnMonitor sxs. Asthenia 74990322 R53.1 As above. Diabetes mellitus 354434 09 E11.9 HgA1C was 5.7 on 06/23All sugars <200 since here, so fingerstic ks d/c'd on 07/18Contin ue metformin 500 mg BIDMonitor fingerstic ks prn. Essential hypertension 53010065 I10 BP in good control on lisinopril 5 mg qd, metoprolol 50 mg BID, and furosemide 40 mg qdMonitor BP and labs. Constipation 78049896 K5 9.09 Continue bowel meds as ordered.Mo nitor bowel function. Anemia 508548718 D64.89 Multifacto rial.Galindo nue ferrous sulfate 325 mg qdMonitor CBC Aphasia 32002873 R47.01 As above. Hyperlipidemia 29870029 E78.49 Continue atorvastat in 40 mg qdMonitor lipids yearly Insomnia 962106741 G47.0 0 Continue melatonin 9 mg qhs and trazadone 12.5 mg qhs prnMonitor sleep patterns. Hypocalcemia 8649628 E83 .51 Doesn't have hypocalcem ia.Correct ed Ca+ os 9.08Likely is on Ca+ and vit D for osteopenia .Continue calcium carbonate 500 mg qd and cholecalci ferol 1000 IU qd. Myasthenia gravis 748525 04 G70.00 Carrying dxOn no meds at this time.Very deconditio kelsy.Needs PT/OT for strengthen ing, balance, gait training, safety and function.C ontinue fall precaution s.Monitor for safety. Cerebrovas cular accident 109761775 I63.89 With mod to severe aphasia.SL P eval and tx.Continu e meds as above.Prakash cat for new neuro sxs. Chronic ki dney disease stage 3 132172317 N18.32 At baseline.C ontinue to avoid nephrotoxi c meds as able.Monit or labs.Renal consult prn. Anxiety 94611170 F41.1 Very anxious tonight. Anxiety makes it even harder for her to get her words out.Will start lorazepam 0.5 mg q 6 hrs prn [id number] MIRI NORTON [address] [place] [address] [place] [address] 07/25/2023 12:45:25 07/26/2023 15:42:48 Open wound of right foot 6036693371 6543585 S91.301A 07/19: s/p wound debridemen tcontinue wound treatment as ordered.fo llow up with [facility] on 08/01 at 130 pm Surgical i ncision wound of skin 7619447221 00 R23.8 right lateral mid thigh - HEALING NEHEMIAS REMOVED IN ACUTE CAREright low leg corral healingrig ht lower extremity medial thigh wound with packing Peripheral vascular disease 475567493 I73.9 s/p right femoral endarterec bridget with [...] 6 prncontinu e lidocaine patch right Asthenia 08358620 R53.1 hx of myasthenia gravisPT/O T eval and treat Diabetes mellitus 393244 09 E11.9 continue metformin 500 mg BIDcontinu e to monitor FSfollow-u p with PCP after discharge for further management Essential hypertension 30786816 I10 continue lisinopril 5 mg dailyconti nue metoprolol 50 mg bidfurosem oxana 40 mg dailymonit or BP /labs Constipation 25726740 K5 9.00 continue colace 100 mg bidschedul ed miralax 17 gm daily and senna 8.6 mg daily.incr ease oral hydration Anemia 140364912 D64.9 see hpitoday 6.7 -will recheck on 07/25contin ue ferrous sulfate 325 mg dailycolor is normal, there is no SOB, extremitie s are warm.monit or CBC [id number] MIRI NORTON [address] [address] 07/29/2023 09:49:56 08/02/2023 10:28:17 Open wound of right foot 2746096632 8672792 S91.301A 07/19: s/p wound debridemen tcontinue wound treatment as ordered.fo llow up with [facility] on 08/01 at 130 pm Peripheral vascular disease 059940519 I73.9 s/p right femoral endarterec bridget with [...] prncontinu e lidocaine patch right Diabetes mellitus 112800 09 E11.9 continue metformin 500 mg BIDcontinu e to monitor FSfollow-u p with PCP after discharge for further management Essential hypertension 01324201 I10 continue lisinopril 5 mg dailyconti nue metoprolol 50 mg bidfurosem oxana 40 mg dailymonit or BP /labs Anemia 789463106 D64.9 see hpicontinu e ferrous sulfate 325 mg dailycolor is normal, there is no SOB, extremitie s are warm.monit or CBC [id number] MIRI NORTON [address] [address] 08/05/2023 09:45:20 08/09/2023 11:18:14 Open wound of right foot 1859601378 7447252 S91.301A 07/19: s/p wound debridemen tcontinue wound treatment as ordered.fo llow up with [facility] on 08/02 with new wound care orders-[facility] care for R foot: Apply saline moistened Promogran over Puraply three times weekly. Peripheral vascular disease 160761293 I73.9 s/p right femoral endarterec bridget with [...] prncontinu e lidocaine patch right Diabetes mellitus 075611 09 E11.9 continue metformin 500 mg BIDcontinu e to monitor FSfollow-u p with PCP after discharge for further management Essential hypertension 69622570 I10 continue lisinopril 5 mg dailyconti nue metoprolol 50 mg bidfurosem oxana 40 mg dailymonit or BP /labs Anemia 755874811 D64.9 see hpicontinu e ferrous sulfate 325 mg dailycolor is normal, there is no SOB, extremitie s are warm.monit or CBC [id number] MIRI NORTON JOSEY [address] [place] [address] 08/09/2023 08:23:37 08/12/2023 11:43:31 Open wound of right foot 7941934677 8622756 S91.301A 07/19: s/p wound debridemen tcontinue wound treatment as ordered.fo llow up with [facility] on 08/02 with new wound care orders-[facility] [place] care for R foot: Apply saline moistened Promogran over Puraply three times weekly.fol low up appt 08/09 [facility] with vascular. Peripheral vascular disease 312413251 I73.9 s/p right femoral endarterec bridget with [...] prncontinu e lidocaine patch right Diabetes mellitus 660468 09 E11.9 continue metformin 500 mg BIDcontinu e to monitor FS Essential hypertension 42776036 I10 continue lisinopril 5 mg dailyconti nue metoprolol 50 mg bidfurosem oxana 40 mg dailymonit or BP /labs Anemia 153943710 D64.9 H/H has been stable.con tinue ferrous sulfate 325 mg dailycolor is normal, there is no SOB, extremitie s are warm.monit or CBC [id number] MIRI NORTON [address] [place] [address] [place] [address] 08/15/2023 13:44:19 08/18/2023 13:20:18 Open wound of right foot 4078147458 0389015 S91.301A 07/19: s/p wound debridemen tcontinue wound treatment as ordered.fo llow up with [facility] on 08/02 with new wound care orders-[facility] care for R foot: Apply saline moistened Promogran over Puraply three times weekly.07/26 5 :s/p right foot debridemen t, applicatio n of skin substitute graftfollo w up appt 08/15 at [facility] with vascular. Peripheral vascular disease 083713591 I73.9 s/p right femoral endarterec bridget with [...] prncontinu e lidocaine patch right Diabetes mellitus 921298 09 E11.9 continue metformin 500 mg BIDcontinu e to monitor FS Essential hypertension 67613889 I10 continue lisinopril 5 mg dailyconti nue metoprolol 50 mg bidfurosem oxana 40 mg dailymonit or BP /labs Anemia 798920596 D64.9 H/H 6.6/21.2- will repeat labsconsid er adding ascorbic acid dailyconti nue ferrous sulfate 325 mg dailycolor is normal, there is no SOB, extremitie s are warm.monit or CBC [id number] MIRI NOROTN [address] [place] [address] 08/16/2023 08:21:08 08/18/2023 15:50:07 Open wound of right foot 0786349801 0938844 S91.301A see HPI with new finding today,07/19 : s/p wound debridemen :s/p right foot debridemen t, applicatio n of skin substitute graft08/10: tuesday morning sent back to [facility] for excessive wound bleeding thru dressings- transfused 1 unit of packed red blood cells.08/11 : returned from [facility].: abnormal H/H 6.319.9 Peripheral vascular disease 290131340 I73.9 s/p right femoral endarterec bridget with [...] 6 prncontinu e lidocaine patch right Anemia 910947034 D64.9 H/H 6.19.9co ntinue ferrous sulfate 325 mg dailycolor is pale there is no SOB, extremitie s are warm, right foot cold. [id number] MIRI NORTON [address] [place] [address] 08/29/2023 12:13:56 09/05/2023 15:08:58 Amputated below knee 052901279 Z89.519 Critical limb ischemia of right lower extremity now s/p right below knee amputation .continue oxycodone 5 mg q 6 prnfollow up with vascular on 09/01/23 Peripheral vascular disease 209296891 I73.9 s/p below knee amputation continue asa, plavix and eliquiscon tinue oxycodonec ontinue lyrica 150 mg qd and 200 mg at HS Delirium 2337207 R41.0 resolved in acute careof note she is at baseline status, she is alert and oriented. Dysphagia 11631576 R13.1 0 resolvedsh e was seen by speech in acute acute care, continue reg diet with thin liquids Toxic encephalopathy 283 24930 G92.9 resolved in acute careammoni a level 20 on 08/24 Diabetes mellitus 423807 09 E11.9 continue metformin 500 mg BIDcontinu e to monitor FS Essential hypertension 36352580 I10 continue lisinopril 5 mg dailyconti nue metoprolol 50 mg bidfurosem oxana 40 mg dailymonit or BP /labs Hypothyroidism 75547228 E03.9 continue levothyrox ine 200 mcgtsh 8- recheck labs in 6-8 weeks Hyperlipidemia 34429336 E78.49 atorvastat in 40 mg dailymonit or lipids prn Anemia 531700879 D64.9 continue ferrous sulfate 325 mg dailycont. Vit D 1000u daily Constipation 18853115 K5 9.09 continue colace 100 mg bidschedul ed miralax 17 gm daily and senna 8.6 mg daily.incr ease oral hydration Anxiety 04078202 F41.9 continue ativan 0.5 mg q6 prnpsych eval and tx- she had recent amputation , I think she will benefit from speaking with psych, she will need support coping with limp loss. [id number] MIRI NORTON VINI DOWLING [address] [place] [address] [place] [address] 08/31/2023 10:12:07 09/05/2023 16:19:16 Cough 74344453 R05.9 08/29: non productive congested cough- is not interrupti ng with sleepchest xay showed no active infiltrate s or changes ofpulmonar y venous congestion or evidence of a pleural effusion.w ill start mucinex 600 mg q12 for 7 days and re eval. Amputated below knee 299 891701 Z89.519 Critical limb ischemia of right lower extremity now s/p right below knee amputation .continue oxycodone 5 mg q 6 prnfollow up with vascular on 09/01/23PT/O T eval and treatment for conditioni ng and strengthen ing. Peripheral vascular disease 020048501 I73.9 s/p below knee amputation continue asa, plavix and eliquiscon tinue oxycodonec ontinue lyrica 150 mg qd and 200 mg at HS Essential hypertension [id number] I10 continue lisinopril 5 mg dailyconti nue metoprolol 50 mg bidfurosem oxana 40 mg dailymonit or BP /labs Hypothyroidism 19010051 E03.9 continue levothyrox ine 200 mcgtsh 8- recheck labs in 6-8 weeks Anxiety 90703574 F41.9 continue ativan 0.5 mg q6 prnpsych eval and tx- she had recent amputation , I think she will benefit from speaking with psych, she will need support coping with limp loss.mood is stable today. [id number] MIRI NORTON JOSEY [address] [place] [address] 5 09/05/2023 08:59:26 09/08/2023 16:20:28 Cough 67478827 R05.9 resolved Amputated below knee 299 813145 Z89.519 right below knee amputation .continue oxycodone 5 mg q 6 prncontinu e PT/OT eval and treatment for conditioni ng and strengthen ing.contin ue wound care Betadine, dry gauze, the stump figure clerk and the amputation shield. Peripheral vascular disease 218032389 I73.9 s/p below knee amputation continue asa, plavix and eliquiscon tinue oxycodonec ontinue lyrica 150 mg qd and 200 mg at HS Essential hypertension 20883275 I10 continue lisinopril 5 mg dailyconti nue metoprolol 50 mg bidfurosem oxana 40 mg dailymonit or BP /labs Hypothyroidism 90871149 E03.9 continue levothyrox ine 200 mcgtsh 8- recheck labs in 6-8 weeks Anxiety 04052248 F41.9 continue ativan 0.5 mg q6 prnshe was seen by psychiatric lpn who is recommendi ng starting duloxetine , benfits discuused ,patient will like to think about it. Carotid ar dahlia stenosis 17737223 I65.29 stent placement in june. Amanda would like her on aspirin and plavix for 3 months post op, then can resume aspirin and eliquis.Sh e will need a carotid duplex later on this summer to recheck the right carotid, determine whether to reinterven e on the stent. [id number] MIRI NORTON JOSEY [address] [place] [address] DIPIKAMARINEANDREW [address] 5 09/07/2023 11:22:32 09/09/2023 08:57:56 Amputated below knee 753824562 Z89.519 right below knee amputation .continue oxycodone 5 mg q 6 prncontinu e PT/OT eval and treatment for conditioni ng and strengthen ing.contin ue wound care Betadine, dry gauze, the stump figure clerk and the amputation shield. Peripheral vascular disease 215197769 I73.9 s/p below knee amputation continue asa, plavix and eliquiscon tinue oxycodonec ontinue lyrica 150 mg qd and 200 mg at HS Essential hypertension 71002824 I10 continue lisinopril 5 mg dailyconti nue metoprolol 50 mg bidfurosem oxana 40 mg dailymonit or BP /labs Hypothyroidism 91001414 E03.9 continue levothyrox ine 200 mcgtsh 8- recheck labs in 6-8 weeks Anxiety 91030172 F41.9 continue ativan 0.5 mg q6 prnshe was seen by psychiatric lpn who is recommendi ng starting duloxetine , benfits discuused ,patient will like to think about it. Carotid ar dahlia stenosis 30522027 I65.29 stent placement in june. Amanda would like her on aspirin and plavix for 3 months post op, then can resume aspirin and eliquis.Sh e will need a carotid duplex later on this summer to recheck the right carotid, determine whether to reinterven e on the stent. [id number] MIRI NORTON [facility] JOSEY [address] [place] [address] [phone] 5 09/12/2023 11:21:52 09/14/2023 16:46:41 Amputated below knee 765094261 Z89.519 right below knee amputation .continue oxycodone 5 mg q 6 prncontinu e PT/OT eval and treatment for conditioni ng and strengthen ing.contin ue wound care Betadine, dry gauze, the stump figure clerk and the amputation shield. Peripheral vascular disease 013509389 I73.9 s/p below knee amputation continue asa, plavix and eliquiscon tinue oxycodone Q 6continue lyrica 150 mg qd and 200 mg at HS Essential hypertension 95543559 I10 continue lisinopril 5 mg dailyconti nue metoprolol 50 mg bidfurosem oxana 40 mg dailymonit or BP /labs Hypothyroidism 54399109 E03.9 continue levothyrox ine 200 mcgtsh 8- recheck labs in 6-8 weeks Constipation 12801277 K5 9.09 she reports that she has [...] evening, will order imaging.in crease oral hydration [id number] MIRI NORTON [facility] [address] [place] [address] 6[address]67[address]856 5 09/15/2023 09:07:09 09/21/2023 10:30:12 Amputated below knee 856640073 Z89.519 right below knee amputation .continue oxycodone 5 mg q 6 prncontinu e PT/OT eval and treatment for conditioni ng and strengthen ing.contin ue wound care Betadine, dry gauze, the stump figure clerk and the amputation shield. Peripheral vascular disease 995663190 I73.9 s/p below knee amputation continue asa, plavix and eliquiscon tinue oxycodone Q 6continue lyrica 150 mg qd and 200 mg at HS Essential hypertension 46493201 I10 continue lisinopril 5 mg dailyconti nue metoprolol 50 mg bidfurosem oxana 40 mg dailymonit or BP /labs Hypothyroidism 94425626 E03.9 labs completed on 09/06 seen today and noted with TSH 16.3 and T4 5.1she is currently taking levothyrox ine 200 mcg daily, will increase to 225 mcg and recheck 10/26 or sooner.she reports being tired at times but is not having any other sx at this time Constipation 96324973 K5 9.09 see hpinormact felipe bowel soundscont inue colace 100 mg bidcontinu e miralax 17 gm daily and increase senna 8.6 mg to BID [id number] Afia Tierney MD [address] [place] [address] 09/19/2023 15:52:03 09/21/2023 10:49:23 Amputated below knee 122432665 Z89.511 As above. Peripheral vascular disease 242172459 I73.89 S/P right BKA.Contin ue Plavix 75 [...] stapes out then and then can start figure clerk.P rosthetics consult when ready. Essential hypertension 74144602 I10 BP remains in good control on lisinopril 5 mg qd, metoprolol 50 mg BID, and furosemide 40 mg qdMonitor BP and labs. Hypothyroidism 47126345 E03.9 Last TSH sl. high, with nl FT4, but low FT3.Contin ue levothyrox ine 225 mcgRecheck TSH as planned. Constipation 18043822 K5 9.09 No c/o today.Cont inue bowel meds as ordered.Mo nitor bowel function. Carotid ar dahlia stenosis 80552873 I65.29 S/P stent placement in 06/2023.To be on ASA and Plavix x 3 months.The n can stop Plavix.To have repeat U/S next month [id number] MIRI NORTON [address] [address] 5 09/22/2023 13:52:47 09/23/2023 15:18:26 Amputated below knee 603604231 Z89.519 right below knee amputation .continue oxycodone 5 mg q 6 prncontinu e PT/OT for conditioni ng and strengthen ing.contin ue wound care Betadine, dry gauze, the stump figure clerk and the amputation shield.lupe sing states wound healing without s/sx of infection. Peripheral vascular disease 066510312 I73.9 continue asa, plavix and eliquiscon tinue oxycodone Q 6continue lyrica 150 mg qd and 200 mg at HS Essential hypertension 29413765 I10 continue lisinopril 5 mg dailyconti nue metoprolol 50 mg bidfurosem oxana 40 mg dailymonit or BP /labs Hypothyroidism 84816595 E03.9 Continue levothyrox ine 225 mcgrecheck TSH around 10/26 [id number] [facility] [address] [place] [address] 09/27/2023 11:23:38 10/18/2023 07:43:35 Amputated below knee 749557802 Z89.519 right below knee amputation .continue oxycodone 5 mg q 6 prncontinu e PT/OT for conditioni ng and strengthen ing.contin ue wound care Betadine, dry gauze, the stump figure clerk and the amputation shield.lupe sing states wound healing without s/sx of infection. Peripheral vascular disease 851513072 I73.9 continue asa, plavix and eliquiscon tinue oxycodone Q 6continue lyrica 150 mg qd and 200 mg at HS Essential hypertension 04751485 I10 continue lisinopril 5 mg dailyconti nue metoprolol 50 mg bidfurosem oxana 40 mg dailymonit or BP /labs Hypothyroidism 87076333 E03.9 Continue levothyrox ine 225 mcgrecheck TSH around 8/ Anxiety 57466964 F41.9 continue ativan 0.5 mg q6 prnshe has agreed to try antidepres santshe was started on fluoxetine 20 mg daily on 09/18will monitor mood and behavior Diabetes mellitus 794352 09 E11.9 no recent BGL, will order weekly checks.con tinue metformin 500 mg BIDcontinu e to monitor FS [id number] MIRI NORTON [address] [phone] 10/04/2023 09:15:00 10/18/2023 08:13:38 Amputated below knee 791276967 Z89.519 right below knee amputation .continue oxycodone 5 mg q 6 prncontinu e PT/OT for conditioni ng and strengthen ing.contin ue wound care Betadine, dry gauze, the stump figure clerk and the amputation shield.lupe [place] states wound healing without s/sx of infection. she will have remaining stable removed this upcoming friday 10/06. Peripheral vascular disease 297875900 I73.9 continue asa, plavix and eliquiscon tinue oxycodone Q 6continue lyrica 150 mg qd and 200 mg at HS Essential hypertension 40838704 I10 continue lisinopril 5 mg dailyconti nue metoprolol 50 mg bidfurosem oxana 40 mg dailymonit or BP /labs Hypothyroidism 40159078 E03.9 Continue levothyrox ine 225 mcgrecheck TSH around 10/26 Anxiety 32321071 F41.9 continue ativan 0.5 mg q6 prnshe has agreed to try antidepres santshe was started on fluoxetine 20 mg daily on 09/18will monitor mood and behavior Diabetes mellitus 879530 09 E11.9 no recent BGL, will order weekly checks.con tinue metformin 500 mg BIDcontinu e to monitor FS7/724 BGL 120 [id number] MIRI NORTON [address] [address] 10/06/2023 08:54:05 10/18/2023 08:26:39 Amputated below knee 758307955 Z89.519 right below knee amputation .continue oxycodone 5 mg q 6 prn- will change to 24 prn and eventually stop of noted she has not used in 3 days.galindo nue PT/OT for conditioni ng and strengthen ing.contin ue wound care Betadine, dry gauze, the stump figure clerk and the amputation shield.wou nd healing without s/sx of infection. she will have remaining nehemias removed this upcoming friday 10/06. Peripheral vascular disease 923481593 I73.9 continue asa, plavix and eliquiscon tinue oxycodone Q 6continue lyrica 150 mg qd and 200 mg at HS Essential hypertension 39130380 I10 continue lisinopril 5 mg dailyconti nue metoprolol 50 mg bidfurosem oxana 40 mg dailymonit or BP /labs Anxiety 56845122 F41.9 continue ativan 0.5 mg q6 prnshe has agreed to try antidepres santshe was started on fluoxetine 20 mg daily on 09/18will monitor mood and behavior [id number] PÉREZ LUNDBERG, MIRI DOWLING [address] [place] [address] 10/10/2023 10:05:30 10/18/2023 09:02:23 Amputated below knee 643229635 Z89.519 right below knee amputation .remaining nehemias removed on 10/07/23- she has small superficia l open area moist and draining scant serous output. wound care for to cleanse with NS and apply aquacel cover with gauze.cont inue oxycodone 5 mg q 12 prn-contin ue PT/OT for conditioni ng and strengthen ing.contin ue wound care, the stump figure clerk and the amputation shieldwoun d healing without s/sx of infection. Peripheral vascular disease 196363130 I73.9 continue asa, plavix and eliquiscon tinue oxycodone Q 6continue lyrica 150 mg qd and 200 mg at HS Essential hypertension 60399845 I10 BP has been underconti nue lisinopril 5 mg dailyconti nue metoprolol 50 mg bidfurosem oxana 40 mg dailymonit or BP /labs Anxiety 24158727 F41.9 continue ativan 0.5 mg q6 prnshe has agreed to try antidepres santshe was started on fluoxetine 20 mg daily on 09/18will monitor mood and behavior Carotid ar dahlia stenosis 52638020 I65.29 10/09:Histo ry of bilateral TCAR and [...] whether to reinterven e on the stent. [id number] Tere HerreraMariajose Gentile [facility] JOSEY [address] [facility] [address] 10/14/2023 09:41:31 10/18/2023 09:28:24 Amputated below knee 384606260 Z89.519 does not need wrap. healedappl y skin prep BID nsg updated.wo rking with PTpain controlled . Vascular dementia 111532 004 F01.54 chronis stablediff iculty to recall thoughts and respond to questions. mood stablecont inue supportive caremonito r for decline. [id number] JAKI LÓPEZ NP [facility] [address] [place] [address] 10/20/2023 09:58:42 10/22/2023 09:32:05 Amputated below knee 505967286 Z89.519 right below knee amputation .remaining nehemias removed on 10/07/23- continues to heal well.stop oxycodone 5 mg q 12 prn due to minimal usecontinu e PT/OT for conditioni ng and strengthen ing.contin ue wound care, the stump figure clerk and the amputation shieldwoun d healing without s/sx of infection. Peripheral vascular disease 059399687 I73.9 continue asa, plavix and eliquiscon tinue lyrica 150 mg qd and 200 mg at HS for pain mgmt Essential hypertension 00845833 I10 VSS, BP soft on occasionco ntinue lisinopril 5 mg dailyconti nue metoprolol 50 mg bidfurosem oxana 40 mg dailymonit or BP /labs Anxiety 60221301 F41.9 continue ativan 0.5 mg q6 prn - occasional use, discussed with nsg. will renew for another 14 days.Dulox etine 20 mg daily recently started, orly. well so far, nsg. feels it has been helping mood and behaviors. Continue to monitorPsy ch following as well. Carotid ar dahlia stenosis 30437335 I65.29 History of bilateral TCAR and left [...] ultrasound , plavix, and follow up appt. [id number] PÉREZ LUNDBERG, MIRI [facility] [address] [facility] [address] [place] [address] 10/25/2023 10:59:01 10/26/2023 15:44:22 Amputated below knee 792693626 Z89.519 right below knee amputation , continues to heal well.now open to air ,wound healing without s/sx of infection. continue tylenol and lyrica Peripheral vascular disease 146314743 I73.9 continue asa, plavix and eliquiscon tinue lyrica 150 mg qd and 200 mg at HS for pain mgmtwill discuss need to continue plavix at vascular appt 10/28/23 Essential hypertension 50382165 I10 continue lisinopril 5 mg dailyconti nue metoprolol 50 mg bidfurosem oxana 40 mg dailymonit or BP /labs Anxiety 78889041 F41.9 continue ativan 0.5 mg q6 prn - occasional use, discussed with nsg. will renew for another 14 days.Dulox etine 20 mg daily recently started, orly. well so far, nsg. feels it has been helping mood and behaviors. - seen by psychiatric lpn on 10/23 reports feeling some improvemen t with duloxetine , recommende d to continueCo ntinue to monitorPsy ch following as well. Carotid ar dahlia stenosis 02089229 I65.29 History of bilateral TCAR and left carotid endarterec bridget.stent placement in june 2023will need carotid duplex to be scheduled by vascular at her next appt.Dr. Patel would like her on aspirin and plavix for 3 months post op, then can resume aspirin and eliquis.sh e has carotid ultrasound scheduled for 10/27. decision to continue or stop plavix will be discussed at that appointmen t. [id number] MIRI NORTON [facility] JOSEY [address] [place] [address] [place] [address] 10/26/2023 12:11:32 10/31/2023 16:07:08 COVID-19 502294581 U07.1 see hpiwill started paxlovid, isolation precaution supportati ve treatment: with mucinex 600 mg BID for 5 dayspaxlov id as orderedprn neb tx for sob. [id number] MIRI NORTON VINI DOWLING [address] [facility] [place] [address] 10/31/2023 16:29:45 11/01/2023 13:09:54 COVID-19 592326889 U07.1 she has been stable no reportable sx notedwill received last dose of paxlovid tonightiso lation precaution continue supportati ve treatment: prn neb tx for sob. Amputated below knee 299 005529 Z89.519 right below knee amputation , continues to heal well.now open to air ,wound healing without s/sx of infection. continue tylenol and lyrica Peripheral vascular disease 618300562 I73.9 continue asa, plavix and eliquiscon tinue lyrica 150 mg qd and 200 mg at HS for pain mgmtwill discuss need to continue plavix at vascular appt 10/28/23 Essential hypertension 54326839 I10 continue lisinopril 5 mg dailyconti nue metoprolol 50 mg bidfurosem oxana 40 mg dailymonit or BP /labs Anxiety 71410668 F41.9 continue ativan 0.5 mg q6 prn -continue Duloxetine 20 mg dailymood has been good.Galindo nue to monitorPsy ch following as well. Carotid ar dahlia stenosis 57314852 I65.29 History of bilateral TCAR and left [...] will be discussed at that appointmen tCandis [id number] MIRI NORTON [address] [place] [address] rd [place] [address] 11/04/2023 09:52:30 11/08/2023 11:09:10 COVID-19 104945388 U07.1 completed anti-viral . Amputated below knee 299 449916 Z89.519 right below knee amputation , continues to heal well.now open to air ,wound healing without s/sx of infection. continue tylenol and lyrica Peripheral vascular disease 715161865 I73.9 continue asa, plavix and eliquis- on hold for now for melenacont inue lyrica 150 mg qd and 200 mg at HS for pain mgmt Essential hypertension 61550921 I10 continue lisinopril 5 mg dailyconti nue metoprolol 50 mg bidfurosem oxana 40 mg dailymonit or BP /labs Anxiety 60838514 F41.9 continue ativan 0.5 mg q6 prn -continue Duloxetine 20 mg dailyConti nue to monitorPsy ch following as well. Carotid ar dahlia stenosis 16889995 I65.29 History of bilateral TCAR and left carotid endarterec bridget.stent placement in june 2023will need carotid duplex to be scheduled by vascular at her next appt.Dr. Patel would like her on aspirin and plavix for 3 months post op, then can resume aspirin and eliquis.sh e had carotid ultrasound scheduled for 10/27.- reschedule d due to covid decision to continue or stop plavix will be discussed at that appointmen tCandis Chamberlain 0697299 K92.1 11/02: nursing report black tarry stool, eliquis held, CBC ord.11/03: H/H 8.7-27.8 -plavix and asa placed on hold.Yair nt has no GI upset complaints .Will monitor for the next 2 days and repeat labs on Tuesday to include iron, ferritin and TIBCWill add protonix [address] daily prophylact icallynurs ing to monitor for and update provider if patient develops abdominal pain, indigestio n, hematemesi s, weakness, dizziness and or pallor. [id number] MIRI NORTON [facility] [address] [place] [address] [place] [address] 11/07/2023 08:49:06 11/09/2023 10:55:24 Melena 1610609 K92.1 11/06: continue to have black tarry [...] s, weakness, dizziness and or pallor. Anemia 183737781 D64.9 H/H trending down today noted at 09/12-signi ficant drop in 7 days tested 3 times. continue ferrous sulfate 325 mg dailycont. Vit D 1000u daily [id number] Sarah Jeffers, ZENOBIA [address] [place] [address] 11/12/2023 07:51:13 11/18/2023 09:17:41 Anemia 013980640 D64.9 per [facility] summary: Held Eliquis, aspirin and Plavix since [...] with hemoglobin 6 on admission to [facility],No reports of blood in stool or melena during this hospitaliz ation S/p 1 PRBC, status post 1 liter fluid bolus in ED patient is on triple therapy as an outpatient (per vascular surgery documentat ion and per coordinati on, Eliquis for her bypass patency) it was determined to dc eliquiscon tinueferro us sulfate 325 mg dailycont. Vit D 1000u dailymonit or cbc and bmp weekly on mondays x 3 Esophagitis 36326781 K20 .90 no melena noted in hospital, [...] bmp weekly on mondays x 3 Anxiety 57540301 F41.9 while in hopsital her ativan 0.5 mg q6 prn was discontinu edcontinue Duloxetine 20 mg dailyConti nue to monitorPsy ch following as well. Hypothyroidism 93488914 E03.9 adjusted in hospitalco nt levothyrox ine 200 mcg po dailyreche ck tsh in 8 weeksmonit or Essential hypertension 78983934 I10 bp initially soft in hospital, lisinopril was held, now resolved and resumedcon tlisinopri l 5 mg po dailymetop rolol 50 mg po q 12 hoursmonit or Amputated below knee 299 743608 Z89.519 right below knee amputation , continues to heal well.galindo nue tylenol and lyricafu with vascular as planned Peripheral vascular disease 194130679 I73.9 eliquis on holdcontin ueasa, plavixlyri ca 150 mg qdmonitor Pressure i njury of coccygeal region of back stage II 0133498510 2677906 L89.152 healing denuded skin to right coccyx11/11 apply barrier cream topically bid and prnfrequen t brief changes and reposition ingmonitor for infection Vascular dementia 975246 004 F01.54 stablediff iculty to recall thoughts and respond to questions at baseline per staffmood stablecont inue supportive caremonito r for decline. [id number] MIRI NORTON [address] [place] [address] [place] [address] 11/14/2023 09:54:52 11/18/2023 10:04:39 Esophagitis 42645150 K20.90 no melena noted in hospital, but [...] bmp weekly on mondays x 3 Anemia 847412860 D64.9 per [facility] summary: Held Eliquis, aspirin and Plavix since [...] with hemoglobin 6 on admission to [facility],No reports of blood in stool or melena during this hospitaliz ation S/p 1 PRBC, status post 1 liter fluid bolus in ED patient is on triple therapy as an outpatient (per vascular surgery documentat ion and per coordinati on, Eliquis for her bypass patency) it was determined to dc eliquiscon tinueferro us sulfate 325 mg dailycont. Vit D 1000u dailymonit or cbc and bmp weekly on mondays x 3 Anxiety 21883301 F41.9 while in hopsital her ativan 0.5 mg q6 prn was discontinu edcontinue Duloxetine 20 mg dailyConti nue to monitorPsy ch following as well. Hypothyroidism 57056065 E03.9 adjusted in hospitalco nt levothyrox ine 200 mcg po dailyreche ck tsh in 8 weeksmonit or Essential hypertension 24802477 I10 bp initially soft in hospital, lisinopril was held, now resolved and resumedcon tlisinopri l 5 mg po dailymetop rolol 50 mg po q 12 hoursmonit or Amputated below knee 299 017230 Z89.519 right below knee amputation , continues to heal well.galindo nue tylenol and lyricafu with vascular as planned Peripheral vascular disease 365799796 I73.9 eliquis on holdcontin ueasa, plavixlyri ca 150 mg qdmonitor Pressure i njury of coccygeal region of back stage II 2126512587 5326196 L89.152 healing denuded skin to right coccyx11/11 apply barrier cream topically bid and prnfrequen t brief changes and reposition ingmonitor for infection Vascular dementia 972959 004 F01.54 stablediff iculty to recall thoughts and respond to questions at baseline per staffmood stablecont inue supportive caremonito r for decline. [id number] MIRI NORTON [address] [address] 11/17/2023 14:04:30 11/23/2023 09:14:45 Anxiety 01166157 F41.9 stableDulo xetine 20 mg dailyConti nue to monitorPsy ch following as well. Hypothyroidism 19281796 E03.9 adjusted in hospitalco nt levothyrox ine 200 mcg po dailyreche ck tsh in 8 weeksmonit or Essential hypertension 61554442 I10 stable-lis inopril 5 mg po dailymetop rolol 50 mg po q 12 hoursmonit or Amputated below knee 299 601403 Z89.519 right below knee amputation , continues to heal well.galindo nue tylenol and lyricafu with vascular as planned Peripheral vascular disease 128102016 I73.9 eliquis stoppedcon tinue:asa, plavixlyri ca 150 mg qdmonitor Vascular dementia 835781 [address] declinebas sahara difficulty with word findingmoo d stablecont inue supportive caremonito r for decline. Anemia 196814445 D64.9 continuefe rrous sulfate 325 mg dailycont. Vit D 1000u dailymonit or cbc and bmp weekly on mondays x 3 [id number] MIRI NORTON [address] [address] 11/21/2023 11:10:23 11/23/2023 10:20:09 Anxiety 12819266 F41.9 stableDulo xetine 20 mg dailyConti nue to monitorPsy ch following as well. Hypothyroidism 06689116 E03.9 adjusted in hospitalco nt levothyrox ine 200 mcg po dailyreche ck tsh in 8 weeksmonit or Essential hypertension 35986857 I10 stable-lis inopril 5 mg po dailymetop rolol 50 mg po q 12 hoursmonit or Amputated below knee 299 526416 Z89.519 right below knee amputation , continues to heal well.galindo nue tylenol and lyricafu with vascular as planned Peripheral vascular disease 692351442 I73.9 eliquis stoppedcon tinue:asa, plavixlyri ca 150 mg qdmonitor Vascular dementia 662413 [address] declinebas sahara difficulty with word findingmoo d stablecont inue supportive caremonito r for decline. Anemia 815113792 D64.9 continuefe rrous sulfate 325 mg dailycont. Vit D 1000u dailymonit or cbc and bmp weekly on mondays x 3 [id number] MIRI NORTON [address] [address] 11/29/2023 10:14:07 12/01/2023 14:32:41 Anxiety 41172409 F41.9 stablecont inue duloxetine 20 mg daily- she is having a positive response with med.Contin ue to monitorupd ate HDBH with concerns. Hypothyroidism 20037676 E03.9 adjusted in hospitalco nt levothyrox ine 200 mcg po dailyreche ck tsh in 8 weeks- ord for 11/18monito r Essential hypertension 25822561 I10 continue lisinopril 5 mg po dailyconti nue metoprolol 50 mg po q 12 hoursmonit or Amputated below knee 299 620167 Z89.519 right below knee amputation , continues to heal well.galindo nue tylenol and lyricafu with vascular as planned Peripheral vascular disease [id number] I73.9 eliquis stoppedcon tinue:asa, plavixlyri ca 150 mg qdmonitor Vascular dementia 391634 004 F01.54 expect declinebas sahara difficulty with word findingmoo d stablecont inue supportive caremonito r for decline. Anemia 342815270 D64.9 continuefe rrous sulfate 325 mg dailycont. Vit D 1000u dailymonit or cbc and bmp weekly on mondays x 39/3: H/H has been stable increasing every week. [id number] MIRI NORTON [address] [address] 12/01/2023 11:44:42 12/05/2023 13:22:49 Amputated below knee [id number] Z89.519 right below knee amputation open wound noted on stump concerning for infection, yellowish drainage noted on dressing ,will send culture.co ntinue tylenol and lyricafu with vascular as planned Peripheral vascular disease 184592493 I73.9 eliquis stoppedcon tinue:asa, plavixlyri ca 150 mg qdmonitor Vascular dementia 449393 004 F01.54 expect declinebas sahara difficulty with word findingmoo d stablecont inue supportive caremonito r for decline. [id number] MIRI NORTON [address] [address] 12/05/2023 09:49:14 12/07/2023 10:15:18 Amputated below knee 073211085 Z89.519 right below knee amputation wound culture pendingcon tinue tylenol and lyricafu with vascular as planned Peripheral vascular disease 869926691 I73.9 eliquis stoppedcon tinue:asa, plavixlyri ca 150 mg qdmonitor Vascular dementia 444852 004 F01.54 expect declinebas sahara difficulty with word findingmoo d stablecont inue supportive caremonito r for decline. [id number] MIRI NORTON [address] [address] 12/12/2023 08:48:56 12/14/2023 08:51:51 Amputated below knee 867695319 Z89.519 right below knee amputation continue tylenol and lyricafu with vascular as planned on 12/16/23 Peripheral vascular disease 000551904 I73.9 eliquis stoppedcon tinue:asa, plavixlyri ca 150 mg qdmonitor Vascular dementia 633343 004 F01.54 expect declinebas sahara difficulty with word findingmoo d stablecont inue supportive caremonito r for decline. Subconjunc tival hemorrhage of left eye 1816011621 63936 H11.32 no pain or visual changesnur sing to update provider for changes in vision, pain or discharge. can apply warm compress for comfort if irritated. 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 Peripheral vascular disease 460681020 I73.9 12/15 carotid duplex shows 70 to 99% stenosis in her right ICA, this is s/p TCAR and she has a patent stent. Her left side shows 1 to 49% stenosis in the ICA with a patent stent.repe at duplex in 6 months eliquis stoppedcon tinue:asa, plavixlyri ca 150 mg qdmonitor Vascular dementia 377026 004 F01.54 expect declinebas sahara difficulty with word findingmoo d stablecont inue supportive caremonito r for decline. Subconjunc tival hemorrhage of left eye 5913193203 93895 H11.32 resolvingn o pain or visual changesnur sing to update provider for changes in vision, pain or discharge. can apply warm compress for comfort if irritated. monitor for worsening sx, pt is on asa and plavix daily.H/H stable , will continue to monitor Insomnia 847203599 G47.0 0 see HPIstop melatonins tart trazodone 50 mg at HSmonitor for effectiven ess [id number] MIRI NORTON [facility] [address] [facility] [place] [address] 12/22/2023 11:08:23 12/23/2023 12:52:01 Amputated below knee 483450564 Z89.519 right below knee amputation continue tylenol [...] and promote wound healing. Peripheral vascular disease 944967862 I73.9 12/15 carotid duplex shows 70 to [...] plavixlyri ca 150 mg qdmonitor Vascular dementia 197539 004 F01.54 expect declinebas sahara difficulty with word findingmoo d stablecont inue supportive caremonito r for decline. Subconjunc tival hemorrhage of left eye 7424352055 07411 H11.32 resolvingn o pain or visual changesnur sing to update provider for changes in vision, pain or discharge. can apply warm compress for comfort if irritated. monitor for worsening sx, pt is on asa and plavix daily.H/H stable , will continue to monitor Insomnia 712921795 G47.0 0 continue trazodone 50 mg at HS- will reassess at next visit.prakash cat for effectiven essdiscuss ed with patient avoiding caffeine drinks before bed, antidepres nuria and BP meds can causes insomnia. we discussed trying relaxation techniques such as deep breathing and guided imagery. [id number] MIRI NORTON [address] [place] [address] 12/27/2023 14:42:28 12/28/2023 11:41:01 Amputated below knee 165831485 Z89.519 right below knee amputation continue tylenol [...] and promote wound healing. Peripheral vascular disease 228000453 I73.9 12/15 carotid duplex shows 70 to [...] plavixlyri ca 150 mg qdmonitor Vascular dementia 270291 004 F01.54 expect declinebas sahara difficulty with word findingmoo d stablecont inue supportive caremonito r for decline. Subconjunc tival hemorrhage of left eye 2439687374 57737 H11.32 resolvingn o pain or visual changesnur sing to update provider for changes in vision, pain or discharge. can apply warm compress for comfort if irritated. monitor for worsening sx, pt is on asa and plavix daily.H/H stable , will continue to monitor Insomnia 349766333 G47.0 0 continue trazodone 50 mg at HS- will reassess at next visit.prakash cat for effectiven essdiscuss ed with patient avoiding caffeine drinks before bed, antidepres nuria and BP meds can causes insomnia. we discussed trying relaxation techniques such as deep breathing and guided imagery. [id number] MIRI NORTON [address] [place] [address] 01/02/2024 08:33:03 01/03/2024 11:47:07 Amputated below knee 785402325 Z89.519 followed closely by vascular.r ight below [...] and promote wound healing. Peripheral vascular disease 918177610 I73.9 12/15 carotid duplex shows 70 to [...] plavixlyri ca 150 mg qdmonitor Vascular dementia 726052 [address] declinebas sahara difficulty with word findingmoo d stablecont inue supportive caremonito r for decline. Subconjunc tival hemorrhage of left eye [id number] 88264 H11.32 resolvingn o pain or visual changesnur sing to update provider for changes in vision, pain or discharge. can apply warm compress for comfort if irritated. monitor for worsening sx, pt is on asa and plavix daily.H/H stable , will continue to monitor Insomnia 295455215 G47.0 0 continue trazodone 50 mg at [...] Member ID Guarantor Name 12/28/2023 2 [place] [facility] [address] Marixa Chan [id number] Marixa Chan 12/27/2023 1 MEDICARE B-[place]: [id number] Marixa Chan [id number] Marixa Chan Notes Date Note Type Note [...] today for acute rounding visit MIRI NORTON [address] [place] [address], [facility], [place], [address], [employer] [facility] 12/12/2023 14:39:04 12/19/2023 text/html ROS as noted [...] playing television all night. MIRI NORTON [address] [facility], [address], [place], [address], [employer] [facility] 12/20/2023 15:35:55 12/22/2023 text/html ROS as noted [...] have a stump strinker. MIRI NORTON [address] [facility], [address], [place], [address], [employer] 12/22/2023 16:22:53 12/27/2023 text/html ROS as noted [...] have a stump strinker. MIRI NORTON [address] [facility], [address], [place], [address], [facility] [employer] 12/27/2023 15:20:31 01/02/2024 text/html ROS as noted [...] have a stump strinker. MIRI NORTON [address] [facility], [address], [place], [address], [employer] 01/02/2024 13:22:00 OBGyn Episode No OBEpisode recorded.
--- OUTSIDE RECORDS SUMMARY | 2025-02-18 06:31 | XMS_ITS | Clinical Summary ---
Author Organization [facility] it Address [address] [place] [address] Care Team Providers Care Studio Artist Name Role Phone Unavailable Primary Care Provider Unavailabl e Immunizations Immunization Administration Dates Next Due Pfizer SARS-CoV-2 COVID-19, mRNA, LNP-S, preservative free 07/02/2020,06/07/2020 Surgical History Surgery Date Site/Laterality Comments NECK SURGERY PROCEDURE: HISTORICAL NECK SURGERY; COMMENT: spinal stenosis TONSILLECTOMY PROCEDURE: HISTORICAL TONSILLECTOMY CHOLECYSTECTOMY 09/1989 PROCEDURE: HISTORICAL CHOLECYSTECTOMY BREAST REDUCTION PROCEDURE: AK BREAST REDUCTION ROBOTIC ASSISTED HYSTERECTOMY 03/05/14 PROCEDURE: [...]
--- OUTSIDE RECORDS SUMMARY | 2025-02-18 06:31 | XMS_ITS | Encounter Summary ---
Author Organization [employer] Address [address] [facility] 7t [place] [address] Care Team Providers Care Director Dental Services Name Role Phone Unavailable Primary Care Provider Unavailabl e Encounter Details Date Type Department Care Team (Latest Contact Info) Description 06/29/2021 Abstract [facility] CONVERSIONS Dental, Provider, DDS Social History [...]
--- OUTSIDE RECORDS SUMMARY | 2025-02-18 06:31 | XMS_ITS | Encounter Summary ---
Author Organization [employer] Address [address] 7t [place] [address] Care Team Providers Care Seam Steamer Name Role Phone Unavailable Primary Care Provider Unavailabl e Reason for Visit * Reason Onset Date Comments medical clearance 05/27/2022 Encounter Details Date Type Department Care Team (Late st Contact Info) Description 05/27/2022 Telephone [facility] AD[facility] [address] [place] [address] Davonte Cunningham DDS medical clearance Social History [...] was for medical clearance. Pls re send [phone] * Telephone Encounter - Lucina Leigh - [...] was for medical clearance. Pls re send [phone] documented in this encounter Plan of Treatment Not on file documented as of this encounter Visit Diagnoses Not on filedocumented in this encounter
--- OUTSIDE RECORDS SUMMARY | 2025-02-18 06:31 | XMS_ITS | Encounter Summary ---
Author Organization [facility] Address [address] [place] [address] Phone Care Team Providers Care It Technical Architect Name Role Phone Agueda Ann MD Primary Care Provider [phone] Andie Rossi MD Unavailable West Doll MD Unavailable [phone] Britany Coles MD Unavailable Naun Hoang MD Unavailable + Agueda Ann MD Unavailable Latosha Garcia OT Unavailable Latosha Garcia OT Unavailable [phone] Mely Bhatti RN Unavailable [email or web address] Encounter Details Date Type Department Care Team (Late st Contact Info) Description 11/04/2022 Procedure Pass [facility] 30 [place] [address] Social History Tobacco Use Types Packs/Day Years [...] high school, GED, job training, learning the Eritre[place] language, technical skills, or developing parenting skills)? [...] 11/04/2022 1:06 AM Lucita Hirsch, NICOLE * [place] Suicide Severity Rating Scale (Screener/Recent Self-Report) Question [...] as of this encounter Care Teams It Technical Architect Relationship Specialty Start Date End Date Agueda Ann MD [address] [address] [email or web address] PCP - General Family Medicine 02/01/19 Andie Rossi MD [address] [place] [address] Neurology 03/02/19 West Doll MD [address] [place] [address] 104 [place] [address] Cardiology 03/02/19 Britany Coles MD [address] [place] [address] 140 [place] [phone] [email or web address] [email or web address] Surgery 03/02/19 Naun Hoang MD [address] [place] [address] Infectious Diseases 03/02/19 Agueda Ann MD [address] [address] [email or web address] Insurance Assigned Provider 07/02/23 04/02/24 Latosha Garcia, OT [address] [place] [address] [email or web address] Transitions Envelope StufferField Naturalist Therapy 11/05/22 11/07/22 Latosha Garcia, OT [address] [place] [address] [email or web address] Transitions Envelope StufferField Naturalist Therapy 11/24/22 11/25/22 Mely Bhatti RN [address] [place] [address] [email or web address] Envelope Stuffer 05/12/23 06/09/23 documented as of this encounter Additional Source Comments The information contained in this document represents components of the legal health record. It is not the complete legal health record.[facility]
--- OUTSIDE RECORDS SUMMARY | 2025-02-18 06:31 | XMS_ITS | Encounter Summary ---
Author Organization [employer] Address [address] [facility] 7t [place] [address] Care Team Providers Care Manager Behavioral Name Role Phone Unavailable Primary Care Provider Unavailabl e Encounter Details Date Type Department Care Team (Latest Contact Info) Description 07/09/2020 Abstract [facility] CONVERSIONS Dental, Provider, DDS Social History [...]
--- OUTSIDE RECORDS SUMMARY | 2025-02-18 06:31 | XMS_ITS | Encounter Summary ---
Author Organization [facility] Address [address] [place] [address] Phone Care Team Providers Care Loan Auditor Name Role Phone Agueda Ann MD Primary Care Provider [phone] Andie Rossi MD Unavailable West Doll MD Unavailable Britany Coles MD Unavailable Naun Hoang MD Unavailable + Agueda Ann MD Unavailable Latosha Garcia OT Unavailable [phone] Mely Bhatti RN Unavailable [email or web address] Encounter Details Date Type Department Care Team (Late st Contact Info) Description 11/18/2022 Procedure Pass [facility] 30 [place] [address] Social History Tobacco Use Types Packs/Day Years [...] high school, GED, job training, learning the [place]uneian language, technical skills, or developing parenting skills)? [...] documented as of this encounter Care Teams Loan Auditor Relationship Specialty Start Date End Date Agueda Ann MD [address] [place] [address] PCP - General Family Medicine 02/01/19 Andie Rossi MD [address] [place] [address] Neurology 03/02/19 West Doll MD [address] [place] [address] 104 [place] [address] Cardiology 03/02/19 Britany Coles MD [address] [facility] 140 [place] [phone] [email or web address] Orthopedic Surgery 03/02/19 [place] [address] [place] [address] Infectious Diseases 03/02/19 Agueda Ann MD [address] [address] [email or web address] Insurance Assigned Provider 07/02/23 04/02/24 Latosha Garcia, OT 30 [place] [address] [email or web address] Transitions Valve AssemblerMarket Investigator Therapy 11/24/22 11/25/22 Mely Bhatti, NICOLE 30 [place] [address] [email or web address] Valve Assembler 05/12/23 06/09/23 documented as of this encounter Additional Source Comments The information contained in this document represents components of the legal health record. It is not the complete legal health record.[facility]
--- OUTSIDE RECORDS SUMMARY | 2025-02-18 06:31 | XMS_ITS | Clinical Summary ---
Author Organization [employer] Address [address] [facility] 7t [place] [address] Care Team Providers Care Bed And Breakfast Innkeeper Name Role Phone Unavailable Primary Care Provider [...] Most Recently Relevant to Health Maintenance Insurance [facility] MEDICAID STAND ADULT
--- OUTSIDE RECORDS SUMMARY | 2025-02-18 06:31 | XMS_ITS | Clinical Summary ---
Author Organization [address] Address [address] [place] [address] Care Team Providers Care Mixer Tender Name Role Phone Unavailable Primary Care Provider [...]
--- OUTSIDE RECORDS SUMMARY | 2025-02-18 06:31 | XMS_ITS | Patient Health Record ---
Author Organization [facility] Katie tate Billing Info Address [address] [place] [address] Care Team Providers Care Crystal Attacher Name Role Phone BARTOLO Dunbar Unavailable [phone] Reason For Referral No Information Plan Of Treatment No Information
--- OUTSIDE RECORDS SUMMARY | 2025-02-18 06:31 | XMS_ITS | Encounter Summary ---
Author Organization [employer] Address [address] [facility] 7t [place] [address] Care Team Providers Care Staff Nuclear Weapons Officer Name Role Phone Unavailable Primary Care Provider Unavailabl e Encounter Details Date Type Department Care Team (Latest Contact Info) Description 05/02/2018 Abstract [facility] CONVERSIONS Dental, Provider, DDS Social History [...]
--- OUTSIDE RECORDS SUMMARY | 2025-02-18 06:33 | XMS_ITS | Encounter Summary ---
Author Organization [facility] Address [address] [place] [address] Phone Care Team Providers Care Core Mounter Name Role Phone Agueda Ann MD Primary Care Provider Andie Rossi MD Unavailable [phone] West Doll MD Unavailable Britany Coles MD Unavailable Naun Hoang MD Unavailable + Agueda Ann MD Unavailable Latosha Garcia OT Unavailable [phone] Latosha Garcia OT Unavailable [phone] Mely Bhatti RN Unavailable [email or web address] Encounter Details Date Type Department Care Team (Late st Contact Info) Description 07/31/2021 Procedure Pass [facility] Endoscopy Admitting Dept Virtual Department 30 [place] [address] Social History Tobacco Use Types Packs/Day Years [...] GED, job training, learning the [place] language, technical skills, or developing parenting skills)? [...] documented as of this encounter Care Teams Core Mounter Relationship Specialty Start Date End Date Agueda Ann MD [address] [place] [address] PCP - General Family Medicine 02/01/19 Andie Rossi MD [address] [place] [address] Neurology 03/02/19 West Doll MD [address] [place] [address] Cardiology 03/02/19 Britany Coles MD [address] [facility] 140 [place] [phone] [email or web address] Surgery 03/02/19 Naun Hoang MD [address] [facility] [address] [place] [address] Infectious Diseases 03/02/19 Agueda Ann MD [address] [address] [email or web address] Insurance Assigned Provider 07/02/23 04/02/24 Latosha Garcia, OT [address] [place] [address] [email or web address] Transitions Sales Representative ConsultantKey Punch Teacher Therapy 11/05/22 11/07/22 Latosha Garcia, OT [address] [place] [address] [email or web address] Transitions Sales Representative ConsultantKey Punch Teacher Therapy 11/24/22 11/25/22 Mely Bhatti RN [address] [place] [address] [email or web address] Sales Representative Consultant 05/12/23 06/09/23 documented as of this encounter Additional Source Comments The information contained in this document represents components of the legal health record. It is not the complete legal health record.[facility]
--- OUTSIDE RECORDS SUMMARY | 2025-02-18 06:33 | XMS_ITS | Encounter Summary ---
Author Organization [facility] Address [address] [place] [address] Phone Care Team Providers Care Territory Sales Manager Medical Name Role Phone Agueda Ann MD Primary Care Provider [phone] Andie Rossi MD Unavailable [phone] West Doll MD Unavailable Britany Coles MD Unavailable Naun Hoang MD Unavailable + Agueda Ann MD Unavailable Mely Bhatti RN Unavailable [email or web address] Encounter Details Date Type Department Care Team (Late st Contact Info) Description 12/24/2022 Procedure Pass [facility] 30 [place] [address] Social History Tobacco Use Types Packs/Day Years [...] 12/24/2022 9:29 AM Natalya Menon, NICOLE * [place] Suicide Severity Rating Scale (Screener/Recent Self-Report) Question [...] documented as of this encounter Care Teams Territory Sales Manager Medical Relationship Specialty Start Date End Date Agueda Ann MD [address] [address] [email or web address] PCP - General Family Medicine 02/01/19 Andie Rossi MD [address] [place] [address] Neurology 03/02/19 West Doll MD [address] [place] [address] 104 [place] [address] Cardiology 03/02/19 Britany Coles MD [address] [place] [address] 140 [place] [phone] [email or web address] [email or web address] Surgery 03/02/19 Naun Hoang MD [address] [place] [address] Infectious Diseases 03/02/19 Agueda Ann MD [address] [address] [email or web address] Insurance Assigned Provider 4/6/24 1/6/25 Mely Bhatti, RN [address] [place] [address] [email or web address] 05/12/23 06/09/23 documented as of this encounter Additional Source Comments The information contained in this document represents components of the legal health record. It is not the complete legal health record.[facility]
--- OUTSIDE RECORDS SUMMARY | 2025-02-18 06:33 | XMS_ITS | Encounter Summary ---
Author Organization [facility] Address [address] [place] [address] Phone Care Team Providers Care Technical Training Coordinator Name Role Phone Agueda Ann MD Primary Care Provider [phone] Andie Rossi MD Unavailable West Doll MD Unavailable [phone] Britany Coles MD Unavailable [phone] Naun Hoang MD Unavailable + Agueda Ann MD Unavailable Mely Bhatti RN Unavailable [email or web address] Encounter Details Date Type Department Care Team (Late st Contact Info) Description 12/24/2022 Procedure Pass [facility], [facility] 30 [place] [address] Social History Tobacco Use Types Packs/Day Years [...] high school, GED, job training, learning the Luxembourger language, technical skills, or developing parenting skills)? [...] 12/24/2022 9:29 AM Natalya Menon, NICOLE * [place] Suicide Severity Rating Scale (Screener/Recent Self-Report) Question [...] documented as of this encounter Care Teams Technical Training Coordinator Relationship Specialty Start Date End Date Agueda Ann MD [address] [address] [email or web address] PCP - General Family Medicine 02/01/19 Andie Rossi MD [address] [place] [address] Neurology 03/02/19 West Doll MD [address] [place] [address] 104 [place] [address] Cardiology 03/02/19 Britany Coles MD [address] [place] [address] 140 [place] [phone] [email or web address] 03/02/19 Naun Hoang MD [address] [place] [address] Infectious Diseases 03/02/19 Agueda Ann MD [address] [address] [email or web address] Insurance Assigned Provider 4/6/24 1/6/25 Mely Bhatti, RN [address] [place] [address] [email or web address] 05/12/23 06/09/23 documented as of this encounter Additional Source Comments The information contained in this document represents components of the legal health record. It is not the complete legal health record.[facility]
--- OUTSIDE RECORDS SUMMARY | 2025-02-18 06:33 | XMS_ITS | Encounter Summary ---
Author Organization [facility] Address [address] [place] [address] Phone Care Team Providers Care Cut Roll Machine Operator Name Role Phone Agueda Ann MD Primary Care Provider [phone] Andie Rossi MD Unavailable [phone] West Doll MD Unavailable [phone] Britany Coles MD Unavailable Naun Hoang MD Unavailable + Agueda Ann MD Unavailable Mely Bhatti RN Unavailable [email or web address] Encounter Details Date Type Department Care Team (Late st Contact Info) Description 12/24/2022 Procedure Pass [facility], [facility] Scan - [facility] 30 [place] [address] Social History Tobacco Use Types Packs/Day Years [...] high school, GED, job training, learning the Cay[place] Islander language, technical skills, or developing parenting [...] 9:29 AM ALEKT Natalya Delgadillo RN * [place] Suicide Severity Rating Scale (Screener/Recent Self-Report) Question [...] documented as of this encounter Care Teams Cut Roll Machine Operator Relationship Specialty Start Date End Date Agueda Ann MD [address] [address] [email or web address] PCP - General Family Medicine 02/01/19 Andie Rossi MD [address] [place] [address] Neurology 03/02/19 West Doll MD [address] [place] [address] 104 [place] [address] Cardiology 03/02/19 Britany Coles MD [address] [place] [address] 140 [place] [address] [email or web address] [email or web address] Surgery 03/02/19 Naun Hoang MD [address] [place] [address] Infectious Diseases 03/02/19 Agueda Ann MD [address] [address] [email or web address] Insurance Assigned Provider 07/02/23 04/02/24 Mely Bhatti, NICOLE [address] [address] [email or web address] Person 05/12/23 06/09/23 documented as of this encounter Additional Source Comments The information contained in this document represents components of the legal health record. It is not the complete legal health record.[facility]
--- OUTSIDE RECORDS SUMMARY | 2025-02-18 06:33 | XMS_ITS | Encounter Summary ---
Author Organization [facility] Address [address] [place] [address] Phone Care Team Providers Care Radial Arm Saw Operator Name Role Phone Agueda Ann MD Primary Care Provider [phone] Andie Rossi MD Unavailable West Doll MD Unavailable [phone] Britany Coles MD Unavailable Naun Hoang MD Unavailable + Agueda Ann MD Unavailable Mely Bhatti RN Unavailable [email or web address] Encounter Details Date Type Department Care Team (Late st Contact Info) Description 12/24/2022 Procedure Pass [facility], [facility] 30 [place] [address] Social History Tobacco Use Types Packs/Day Years [...] GED, job training, learning the [place] language, technical skills, or developing parenting skills)? [...] 12/24/2022 9:29 AM Natalya Menon, NICOLE * [place] Suicide Severity Rating Scale (Screener/Recent Self-Report) Question [...] documented as of this encounter Care Teams Radial Arm Saw Operator Relationship Specialty Start Date End Date Agueda Ann MD [address] [address] [email or web address] PCP - General Family Medicine 02/01/19 Andie Rossi MD [address] [place] [address] Neurology 03/02/19 West Doll MD [address] [place] [address] 104 [place] [address] Cardiology 03/02/19 Britany Coles MD [address] [place] [address] 140 [place] [phone] [email or web address] 03/02/19 Naun Hoang MD [address] [place] [address] Infectious Diseases 03/02/19 Agueda Ann MD [address] [address] [email or web address] Insurance Assigned Provider 4/6/24 1/6/25 Mely Bhatti, RN [address] [place] [phone] [email or web address] 05/12/23 06/09/23 documented as of this encounter Additional Source Comments The information contained in this document represents components of the legal health record. It is not the complete legal health record.[facility]
--- OUTSIDE RECORDS SUMMARY | 2025-02-18 06:34 | XMS_ITS | Encounter Summary ---
Author Organization [facility] Address [address] [place] [address] Phone Care Team Providers Care Shell Plater Name Role Phone Agueda Ann MD Primary Care Provider [phone] Andie Rossi MD Unavailable West Doll MD Unavailable Britany Coles MD Unavailable [phone] Naun Hoang MD Unavailable + Agueda Ann MD Unavailable Mely Bhatti RN Unavailable [email or web address] Encounter Details Date Type Department Care Team (Late st Contact Info) Description 12/24/2022 Procedure Pass [facility], Ct Scan - [facility] 30 [place] [address] Social History Tobacco Use Types Packs/Day Years [...] high school, GED, job training, learning the Samoan language, technical skills, or developing parenting skills)? [...] 9:29 AM ALEKT Natalya Delgadillo RN * [place] Suicide Severity Rating Scale (Screener/Recent Self-Report) Question [...] documented as of this encounter Care Teams Shell Plater Relationship Specialty Start Date End Date Agueda Ann MD [address] [address] [email or web address] PCP - General Family Medicine 02/01/19 Andie Rossi MD [address] [place] [address] Neurology 03/02/19 West Doll MD [address] [place] [address] 104 [place] [address] Cardiology 03/02/19 Britany Coles MD [address] [place] [address] 140 [place] [address] [email or web address] Surgery 03/02/19 Naun Hoang MD [address] [place] [address] Infectious Diseases 03/02/19 Agueda Ann MD [address] [address] [email or web address] Insurance Assigned Provider 07/02/23 04/02/24 Mely Bhatti, NICOLE [address] [address] [email or web address] [email or web address] 05/12/23 06/09/23 documented as of this encounter Additional Source Comments The information contained in this document represents components of the legal health record. It is not the complete legal health record.[facility]
--- OUTSIDE RECORDS SUMMARY | 2025-02-18 06:34 | XMS_ITS | Encounter Summary ---
Author Organization [facility] Address [address] [place] [address] Phone Care Team Providers Care Dental Assistant Instructor Name Role Phone Agueda Ann MD Primary Care Provider [phone] Andie Rossi MD Unavailable [phone] West Doll MD Unavailable [phone] Britany Coles MD Unavailable Naun Hoang MD Unavailable + Agueda Ann MD Unavailable Mely Bhatti RN Unavailable [email or web address] Encounter Details Date Type Department Care Team (Late st Contact Info) Description 12/25/2022 Procedure Pass [facility] 30 [place] [address] Social History Tobacco Use Types Packs/Day Years [...] as of this encounter Care Teams Dental Assistant Instructor Relationship Specialty Start Date End Date Agueda Ann MD [address] [place] [address] [email or web address] PCP - General Family Medicine 02/01/19 Andie Rossi MD 48 [place] [address] Neurology 03/02/19 West Doll MD [address] [place] [address] 104 [place] [address] Cardiology 03/02/19 Britany Coles MD [address] [place] [address] 140 [place] [phone] [email or web address] Orthopedic Surgery 03/02/19 [place] [address] [place] [address] Infectious Diseases 03/02/19 Agueda Ann MD [address] [address] [email or web address] Insurance Assigned Provider 07/02/23 04/02/24 Mely Bhatti RN [address] [address] [email or web address] [email or web address] [email or web address] .[email or web address] PHCM Compound Specialist 05/12/23 06/09/23 documented as of this encounter Additional Source Comments The information contained in this document represents components of the legal health record. It is not the complete legal health record.[facility]
--- OUTSIDE RECORDS SUMMARY | 2025-02-18 06:34 | XMS_ITS | Encounter Summary ---
Author Organization [facility] Address [address] [place] [address] Phone Care Team Providers Care Histology Supervisor Name Role Phone Agueda Ann MD Primary Care Provider [phone] Andie Rossi MD Unavailable [phone] West Doll MD Unavailable [phone] Britany Coles MD Unavailable [phone] Naun Hoang MD Unavailable + Agueda Ann MD Unavailable Mely Bhatti RN Unavailable [email or web address] Encounter Details Date Type Department Care Team (Late st Contact Info) Description 12/25/2022 Procedure Pass [facility] 30 [place] [address] Social History Tobacco Use Types Packs/Day Years [...] documented as of this encounter Care Teams Histology Supervisor Relationship Specialty Start Date End Date Agueda Ann MD [address] [place] [address] [email or web address] PCP - General Family Medicine 02/01/19 Andie Rossi MD 48 [place] [address] Neurology 03/02/19 West Doll MD [address] [place] [address] 104 [place] [address] Cardiology 03/02/19 Britany Coles MD [address] [place] [address] 140 [place] [phone] Orthopedic Surgery 03/02/19 [place] [address] [place] [address] Infectious Diseases 03/02/19 Agueda Ann MD [address] [address] [email or web address] Insurance Assigned Provider 07/02/23 04/02/24 Mely Bhatti RN [address] [address] [email or web address] PHCM Venture Capitalist 05/12/23 06/09/23 documented as of this encounter Additional Source Comments The information contained in this document represents components of the legal health record. It is not the complete legal health record.[facility]
--- OUTSIDE RECORDS SUMMARY | 2025-02-18 06:34 | XMS_ITS | Encounter Summary ---
Author Organization [facility] Address [address] [place] [address] Phone Care Team Providers Care Window And Siding Craftsman Name Role Phone Agueda Ann MD Primary Care Provider [phone] Andie Rossi MD Unavailable West Doll MD Unavailable [phone] Britany Coles MD Unavailable Naun Hoang MD Unavailable + Agueda Ann MD Unavailable Mely Bhatti RN Unavailable [email or web address] Encounter Details Date Type Department Care Team (Late st Contact Info) Description 12/24/2022 Procedure Pass [facility], [facility] 30 [place] [address] Social History Tobacco Use Types Packs/Day Years [...] 12/24/2022 9:29 AM Natalya Menon, NICOLE * [place] Suicide Severity Rating Scale (Screener/Recent Self-Report) Question [...] documented as of this encounter Care Teams Window And Siding Craftsman Relationship Specialty Start Date End Date Agueda Ann MD [address] [address] [email or web address] PCP - General Family Medicine 02/01/19 Andie Rossi MD [address] [place] [address] Neurology 03/02/19 West Doll MD [address] [place] [address] 104 [place] [address] Cardiology 03/02/19 Britany Coles MD [address] [place] [address] 140 [place] [phone] [email or web address] [email or web address] Surgery 03/02/19 Naun Hoang MD [address] [place] [address] Infectious Diseases 03/02/19 Agueda Ann MD [address] [address] [email or web address] Insurance Assigned Provider 4/6/24 1/6/25 Mely Bhatti, RN [address] [place] [address] [email or web address] Research Director 05/12/23 06/09/23 documented as of this encounter Additional Source Comments The information contained in this document represents components of the legal health record. It is not the complete legal health record.[facility]
--- OUTSIDE RECORDS SUMMARY | 2025-02-18 06:34 | XMS_ITS | Encounter Summary ---
Author Organization [facility] Address [address] [place] [address] Phone Care Team Providers Care Diamond Grader Name Role Phone Agueda Ann MD Primary Care Provider [phone] Andie Rossi MD Unavailable West Doll MD Unavailable Britany Coles MD Unavailable Naun Hoang MD Unavailable + Agueda Ann MD Unavailable Latosha Garcia OT Unavailable [phone] Latosha Garcia OT Unavailable [phone] Mely Bhatti RN Unavailable [email or web address] Encounter Details Date Type Department Care Team (Late st Contact Info) Description 10/04/2019 Ancillary Orders [facility],Outside Imaging 30 [place] [address] System, Provider Not In, [facility] Partners [address] [address] Social History Tobacco Use Types Packs/Day Years [...] as of this encounter Care Teams Diamond Grader Relationship Specialty Start Date End Date Agueda Ann MD [address] [address] PCP - General Family Medicine 02/01/19 Andie Rossi MD 48 [place] [address] Neurology 03/02/19 West Doll MD [address] [place] [address] 104 [place] [address] Cardiology 03/02/19 Britany Coles MD [address] [place] [address] 140 [place] [address] [email or web address] Orthopedic Surgery 03/02/19 [place] [address] [place] [address] Infectious Diseases 03/02/19 Agueda Ann MD [address] [address] [email or web address] Insurance Assigned Provider 07/02/23 04/02/24 Latosha Garcia, OT 30 [place] [address] [email or web address] Transitions Strategic Accounts ManagerArchitectural Design Professor Therapy 11/05/22 11/07/22 Latosha Garcia, OT 30 [place] [address] [email or web address] Transitions Strategic Accounts ManagerArchitectural Design Professor Therapy 11/24/22 11/25/22 Mely Bhatti, NICOLE 30 [place] [address] [email or web address] Strategic Accounts Manager 05/12/23 06/09/23 documented as of this encounter Additional Source Comments The information contained in this document represents components of the legal health record. It is not the complete legal health record.[facility]
[2025-02-18 06:49] LABS: Anion Gap 14 (12-20); Blood Urea Nitrogen 40 mg/dL (9-16); Calcium 8.5 mg/dL (8.4-10.2); Carbon Dioxide 22 mmol/L (22-29); Chloride 109 mmol/L (96-108); Estimated Glomerular Filt Rate 42; Potassium 4.6 mmol/L (3.3-5.1); Sodium 140 mmol/L (135-145)
[2025-02-18 07:05] LABS: Hematocrit 27.4 % (37.0-47.0); Hemoglobin 8.4 g/dl (12.0-16.0); Imm Gran Abs Auto 0.03 X10*3/uL (0.00-0.03); Imm Gran Pct Auto 0.4 % (0.0-0.4); Lymphocytes Absolute Auto 2.6 X10*3/uL (1.2-4.9); Mean Corpuscular HGB Conc 30.7 g/dl (31.0-35.0); Mean Corpuscular Hemoglobin 26.1 pg (27.0-33.0); Mean Corpuscular Volume 85.1 fL (80.0-98.0); NRBC Abs Auto 0.000 X10*3/uL (0.0-0.012); NRBC Pct Auto 0.0 /100WBC (0.0-0.2); Platelet Count 293 X10*3/uL (160-400); Red Blood Count 3.22 X10*6/uL (4.20-5.50); White Blood Count 8.2 X10*3/uL (4.8-10.8)
== END 2025-02-18 06:30 | disposition home or self-care (01) ==
LOC: HO.MMNH3L 06:29
PROVIDERS: Visit Provider Physician Assistant Medical
DX: I69.398 Other sequelae of cerebral infarction (principal); I25.9 Chronic ischemic heart disease, unspecified; E03.9 Hypothyroidism, unspecified; Z89.611 Acquired absence of right leg above knee
CPT/HCPCS: 36415; 80048; 85025

== ENCOUNTER 2025-02-25 08:34 | Outpatient (REF) | payer MEDICARE, MEDICAID, SELFPAY ==
[2025-02-25 07:45] LABS: MANUAL DIFF FLAG NO
[2025-02-25 08:00] LABS: Hematocrit 28.8 % (37.0-47.0); Hemoglobin 8.7 g/dl (12.0-16.0); Imm Gran Abs Auto 0.03 X10*3/uL (0.00-0.03); Imm Gran Pct Auto 0.4 % (0.0-0.4); Lymphocytes Absolute Auto 2.8 X10*3/uL (1.2-4.9); Mean Corpuscular HGB Conc 30.2 g/dl (31.0-35.0); Mean Corpuscular Hemoglobin 26.0 pg (27.0-33.0); Mean Corpuscular Volume 86.0 fL (80.0-98.0); NRBC Abs Auto 0.000 X10*3/uL (0.0-0.012); NRBC Pct Auto 0.0 /100WBC (0.0-0.2); Platelet Count 305 X10*3/uL (160-400); Red Blood Count 3.35 X10*6/uL (4.20-5.50); White Blood Count 8.1 X10*3/uL (4.8-10.8)
[2025-02-25 08:30] LABS: Anion Gap 13 (12-20); Blood Urea Nitrogen 47 mg/dL (9-16); Calcium 8.6 mg/dL (8.4-10.2); Carbon Dioxide 21 mmol/L (22-29); Chloride 111 mmol/L (96-108); Estimated Glomerular Filt Rate 49; Potassium 4.7 mmol/L (3.3-5.1); Sodium 140 mmol/L (135-145)
--- OUTSIDE RECORDS SUMMARY | 2025-02-25 08:55 | XMS_ITS | Clinical Summary ---
Author Organization [address] Address [address] [place] [address] Care Team Providers Care Magnesium Mill Operator Name Role Phone Unavailable Primary Care [...]
--- OUTSIDE RECORDS SUMMARY | 2025-02-25 08:55 | XMS_ITS | Clinical Summary ---
Author Organization [facility] it Address [address] [place] [address] Care Team Providers Care Soil Technologist Name Role Phone Unavailable Primary Care Provider Unavailabl e Immunizations Immunization Administration Dates Next Due Pfizer SARS-CoV-2 COVID-19, mRNA, LNP-S, preservative free 07/02/2020,06/07/2020 Surgical History Surgery Date Site/Laterality Comments NECK SURGERY PROCEDURE: HISTORICAL NECK SURGERY; COMMENT: spinal stenosis TONSILLECTOMY PROCEDURE: HISTORICAL TONSILLECTOMY CHOLECYSTECTOMY 09/1989 PROCEDURE: HISTORICAL CHOLECYSTECTOMY BREAST REDUCTION PROCEDURE: [place] BREAST REDUCTION ROBOTIC ASSISTED HYSTERECTOMY 03/05/14 PROCEDURE: [...]
--- OUTSIDE RECORDS SUMMARY | 2025-02-25 08:56 | XMS_ITS | Encounter Summary ---
Author Organization [employer] Address [address] [facility] 7t [place] [address] Care Team Providers Care Security Solutions Architect Name Role Phone Unavailable Primary Care Provider Unavailabl e Encounter Details Date Type Department Care Team (Latest Contact Info) Description 07/09/2020 Abstract [facility] CONVERSIONS Dental, Provider, DDS Social History Tobacco [...]
--- OUTSIDE RECORDS SUMMARY | 2025-02-25 08:56 | XMS_ITS | Encounter Summary ---
Author Organization [employer] Address [address] [facility] [address] [facility] [address] [place] [address] Care Team Providers Care Midwife Practitioner Name Role Phone Unavailable Primary Care Provider Unavailabl e Reason for Visit * Reason Onset Date Comments medical clearance 05/27/2022 Encounter Details Date Type Department Care Team (Late st Contact Info) Description 05/27/2022 Telephone [facility] [address] [place] [address] Davonte Cunningham DDS medical clearance Social History [...] was for medical clearance. Pls re send [phone] * Telephone Encounter - Lucina Leigh - [...] was for medical clearance. Pls re send [phone] documented in this encounter Plan of Treatment Not on file documented as of this encounter Visit Diagnoses Not on filedocumented in this encounter
--- OUTSIDE RECORDS SUMMARY | 2025-02-25 08:56 | XMS_ITS | Encounter Summary ---
Author Organization [facility] Address [address] [place] [address] Phone Care Team Providers Care Broadband Engineer Name Role Phone Agueda Ann MD Primary Care Provider Andie Rossi MD Unavailable West Doll MD Unavailable [phone] Britany Coles MD Unavailable Naun Hoang MD Unavailable + Agueda Ann MD Unavailable Latosha Garcia OT Unavailable [phone] Mely Bhatti RN Unavailable [email or web address] Encounter Details Date Type Department Care Team (Late st Contact Info) Description 11/18/2022 Procedure Pass [facility] 30 [place] [address] Social History Tobacco Use Types Packs/Day Years [...] high school, GED, job training, learning the Libyan language, technical skills, or developing parenting skills)? [...] documented as of this encounter Care Teams Broadband Engineer Relationship Specialty Start Date End Date Agueda Ann MD [address] [place] [address] PCP - General Family Medicine 02/01/19 Andie Rossi MD 48 [place] [address] Neurology 03/02/19 West Doll MD [address] [place] [address] 104 [place] [address] Cardiology 03/02/19 Britany Coles MD 175 [facility] 140 [place] [phone] [email or web address] Surgery 03/02/19 [place] [address] [place] [address] Infectious Diseases 03/02/19 Agueda Ann MD [address] [address] [email or web address] Insurance Assigned Provider 07/02/23 04/02/24 Latosha Garcia, OT 30 [place] [address] [email or web address] Transitions Bead Worker SewingOperational Risk Consultant Therapy 11/24/22 11/25/22 Mely Bhatti, NICOLE 30 [place] [address] [email or web address] PHCM Bead Worker Sewing 05/12/23 06/09/23 documented as of this encounter Additional Source Comments The information contained in this document represents components of the legal health record. It is not the complete legal health record.[facility]
--- OUTSIDE RECORDS SUMMARY | 2025-02-25 08:56 | XMS_ITS | Encounter Summary ---
Author Organization [facility] Address [address] [place] [address] Phone Care Team Providers Care Template Maker Name Role Phone Agueda Ann MD Primary Care Provider [phone] Andie Rossi MD Unavailable West Doll MD Unavailable Britany Coles MD Unavailable Naun Hoang MD Unavailable + Agueda Ann MD Unavailable Latosha Garcia OT Unavailable [phone] Latosha Garcia OT Unavailable [phone] Mely Bhatti RN Unavailable [email or web address] Encounter Details Date Type Department Care Team (Late st Contact Info) Description 11/04/2022 Procedure Pass [facility] 30 [place] [address] Social History Tobacco Use Types Packs/Day Years [...] high school, GED, job training, learning the Yi language, technical skills, or developing parenting skills)? [...] 11/04/2022 1:06 AM Lucita Hirsch, NICOLE * [place] Suicide Severity Rating Scale (Screener/Recent Self-Report) Question [...] documented as of this encounter Care Teams Template Maker Relationship Specialty Start Date End Date Agueda Ann MD [address] [address] [email or web address] PCP - General Family Medicine 02/01/19 Andie Rossi MD [address] [place] [address] Neurology 03/02/19 West Doll MD [address] [place] [address] 104 [place] [address] Cardiology 03/02/19 Britany Coles MD [address] [place] [address] 140 [place] [address] [email or web address] Surgery 03/02/19 Naun Hoang MD [address] [place] [address] Infectious Diseases 03/02/19 Agueda Ann MD [address] [address] [email or web address] Insurance Assigned Provider 07/02/23 04/02/24 Latosha Garcia, OT 30 [place] [address] [email or web address] Transitions Career AgentCandy Dipper [facility] 11/05/22 11/07/22 Latosha Garcia, OT 30 [place] [address] [email or web address] Transitions Career AgentCandy Dipper Hand Therapy 11/24/22 11/25/22 Mely Bhatti RN 30 [place] [address] [email or web address] Career Agent 05/12/23 06/09/23 documented as of this encounter Additional Source Comments The information contained in this document represents components of the legal health record. It is not the complete legal health record.[facility]
--- OUTSIDE RECORDS SUMMARY | 2025-02-25 08:56 | XMS_ITS | Patient Health Record ---
Author Organization [facility] Katie tate Billing Info Address [address] [place] [address] Care Team Providers Care Heel Dipper Name Role Phone javidBARTOLO Meyer Unavailable [phone] Reason For Referral No Information Plan Of Treatment No Information
--- OUTSIDE RECORDS SUMMARY | 2025-02-25 08:56 | XMS_ITS | Encounter Summary ---
Author Organization [employer] Address [address] [facility] 7t [place] [address] Care Team Providers Care Wallet Assembler Name Role Phone Unavailable Primary Care Provider Unavailabl e Encounter Details Date Type Department Care Team (Latest Contact Info) Description 06/29/2021 Abstract [facility] [...]
--- OUTSIDE RECORDS SUMMARY | 2025-02-25 08:56 | XMS_ITS | Clinical Summary ---
Author Organization [facility] Address [address] [facility] 7t [place] [address] Care Team Providers Care Manager Of Distribution Name Role Phone Unavailable Primary Care Provider [...] Most Recently Relevant to Health Maintenance Insurance [facility] STAND ADULT
--- OUTSIDE RECORDS SUMMARY | 2025-02-25 08:56 | XMS_ITS | Encounter Summary ---
Author Organization [employer] Address [address] [facility] 7t [place] [address] Care Team Providers Care Certified Legal Secretary Specialist Name Role Phone Unavailable Primary Care Provider Unavailabl e Encounter Details Date Type Department Care Team (Latest Contact Info) Description 05/02/2018 Abstract [facility]VERSION[facility] Dental, Provider, DDS Social History Tobacco [...]
--- OUTSIDE RECORDS SUMMARY | 2025-02-25 08:57 | XMS_ITS | Clinical Summary ---
Author Organization [facility] Address [address] [place] [address] Phone Care Team Providers Care Etcher Photoengraving Name Role Phone Agueda Ann MD Primary Care Provider [phone] Andie Rossi MD Unavailable [phone] West Doll MD Unavailable [phone] Britany Coles MD Unavailable [phone] Naun Hoang MD Unavailable + Allergies No [...] mouth daily. 4 Active neomycin/bacitra negrito/polymyxinB (NEOSPORIN, [id number], TP) Apply 1 Application topically 2 (two) [...] 20 MG tabletIndication s:Coronary artery disease involving winnebago heart without angina pectoris, unspecified vessel or [...] an echo, and follow-up with her own spray gun repairer helper who is at [facility]. Acquired hypothyroidism 09/04/2020 Assessment & Plan (12/26/2022 [...] like to little and she is established [facility] weight management so I like her to see the game attendant there she understands and agrees this plan Assessment & Plan (05/17/2019 12:35 PM EST): She is working out, tracking her caloric intake and sticking to nutrition plan although she is under eating. No clear etiology for her weight gain. Start taking levothyroxine separately from the other medications. Check labs today. Make follow-up with game attendant CAD (coronary artery disease) 03/02/2019 Overview (03/02/2019): h/o stent Assessment & Plan (12/26/2022 3:02 PM EDT): No active cp or acute concern -Continue classroom monitor -Continue aspirin, atorvastatin, Plavix, and Zetia [...] and chronic pain. Certainly would benefit from DATA ADMINISTRATOR services and I have discussed with pt [...] pt can establish with someone new at [facility]. Assessment & Plan (01/21/2021 12:34 PM [...] and gait. She will be going to [facility] physical medicine and rehabilitation in [place] for this. IgG monoclonal gammopathy Assessment & Plan (03/02/2019 12:15 PM EST): Patient denies ever seeing hematology, has never heard this diagnosis and does not think that she has this. As I do not have records it is difficult for me to understand where this came from. I would like to review her [facility] records and if necessary we will [...] appt for Neuro muscular in Dec at [facility] No further pain. F/u as [...] this topic Medical Devices Implanted Type Area M48/[id number] Tank Driver Device Identifier Shelf Expiration Date Model / Serial / Lot Stent Supera 6fr 5.5mm 120mm 120cm .014in Otw Vascular Peripheral Nitinol Self Expanding Closed End Braided - [id number] Implanted:Qty: 1 on 11/18/2022 by David Mendez MD at [facility] Stent [employer] 04/27/2024 [id number] / / [id number] Cardiac Stent Neck Hardware Procedures Procedure Name [...] EST) SODIUM 137 133 - 146 mmol/L [facility] CHLORIDE 101 96 - 108 mmol/L [facility] POTASSIUM 4.1 3.3 - 5.1 mmol/L [facility] CO2 24 21 - 35 mmol/L [facility] BUN 27(H) 6 - 19 mg/dL [facility] CREATININE 0.50 0.5 - 1.5 mg/dL [facility] GLUCOSE 103(H) 70 - 99 mg/dL [facility] CALCIUM 9.0 8.4 - 10.3 mg/dL [facility] EGFR 103 >59 mL/min/1.7 3m2 [facility] Comment:Estimated glomerular filtration rate calculated using the CKD-EPI refit equation. ANION GAP 16 10 - 20 mmol/L [facility] Blood 05/23/2023 4:12 PM EST 05/23/2023 4:32 PM EST Mely Padron PA-C LAB BLOOD BKR ORDERABLES Fin al Result Performing Organization Address City/[facility]/ZIP Co de Phone Number [address] [phone] * (ABNORMAL) TSH with reflex (01/13/2023 7:58 AM EDT) TSH 0.03(L) 0.27 - 4.20 uIU/mL [facility] Blood 01/13/2023 7:58 AM EDT 01/13/2023 8:03 AM EDT Agueda Ann MD LAB BLOOD BKR ORDERABLES Final R esult Performing Organization Address City/[facility]/ZIP Co de Phone Number [address] [address] * (ABNORMAL) Lipid panel (12/25/2022 5:22 AM EDT) HDL 46 mg/dL [facility] Comment: Interpretation <40 mg/dL: Low HDL cholesterol (major risk factor for CHD) Greater than or equal to 60 mg/dL: High HDL cholesterol ( negative risk factor for CHD) HDL - cholesterol is affected by a number of factors, e.g. smoking, excerise, hormones, sex and age. CHOLESTEROL 98 0 - 240 mg/dL [facility] TRIGLYCERIDES 86 30 - 160 mg/dL [facility] LDL 35(L) 50 - 129 mg/dL [facility] Comment: LDL levels in terms of risk for coronary heart disease: <100 mg/dL: Optimal 100-129 mg/dL: Near or above optimal 130-159 mg/dL: Borderline high 160-189 mg/dL: High >190 mg/dL: Very High CARDIAC RISK RATIO 2.1(L) 3.3 - 4.4 C [facility] Blood 12/25/2022 5:22 AM EDT 12/25/2022 6:22 AM EDT us Kayley Ribera PAPER SORTER AND COUNTER LAB BLOOD BKR ORDERABLE S Final Result [facility] 30 [place] [address] * MAMMOGRAPHY FOR RESULT ENTRY ONLY (07/07/2022) [...] B [place] A [place] B [facility] Advance Directives For more information, please contact: [phone] (9AM - 5PM [facility], Tuesday-Tuesday) Documents on File Type Date Recorded Patient Corporate Risk Analyst Expl anation Healthcare Proxy 11/08/2022 6:36 [...] Code Status Confirmed With: Patient Care Teams Etcher Photoengraving Relationship Specialty Start Date End Date Agueda Ann MD [address] [place] [address] PCP - General Family Medicine 02/01/19 Andie Rossi MD 48 [place] [address] Neurology 03/02/19 West Doll MD [address] [place] [address] 104 [place] [address] Cardiology 03/02/19 Britany Coles MD [address] [place] [address] 140 [place] [address] [email or web address] Orthopedic Surgery 03/02/19 Naun Hoang MD [address] [address] Infectious Diseases 03/02/19 Additional Source Comments The information contained in this document represents components of the legal health record. It is not the complete legal health record.[facility]
--- OUTSIDE RECORDS SUMMARY | 2025-02-25 08:57 | XMS_ITS | Encounter Summary ---
Author Organization [facility] Address [address] [place] [address] Phone Care Team Providers Care Bunch Maker Name Role Phone Agueda Ann MD Primary Care Provider [phone] Andie Rossi MD Unavailable [phone] West Doll MD Unavailable Britany Coles MD Unavailable Naun Hoang MD Unavailable + Agueda Ann MD Unavailable Mely Bhatti RN Unavailable [email or web address] Encounter Details Date Type Department Care Team (Late st Contact Info) Description 12/24/2022 Procedure Pass [facility] 30 [place] [address] Social History Tobacco Use Types Packs/Day Years [...] high school, GED, job training, learning the Mohawk language, technical skills, or developing parenting skills)? [...] 12/24/2022 9:29 AM Natalya Menon, NICOLE * [place] Suicide Severity Rating Scale (Screener/Recent Self-Report) Question [...] documented as of this encounter Care Teams Bunch Maker Relationship Specialty Start Date End Date Agueda Ann MD [address] [address] [email or web address] PCP - General Family Medicine 02/01/19 Andie Rossi MD [address] [place] [address] Neurology 03/02/19 West Doll MD [address] [place] [address] 104 [place] [address] Cardiology 03/02/19 Britany Coles MD [address] [place] [address] 140 [place] [phone] [email or web address] Orthopedic Surgery 03/02/19 Naun Hoang MD [address] [place] [address] Infectious Diseases 03/02/19 Agueda Ann MD [address] [address] [email or web address] Insurance Assigned Provider 4/6/24 1/6/25 Mely Bhatti, RN [address] [place] [address] [email or web address] Piped Pocket Machine Operator 05/12/23 06/09/23 documented as of this encounter Additional Source Comments The information contained in this document represents components of the legal health record. It is not the complete legal health record.[facility]
--- OUTSIDE RECORDS SUMMARY | 2025-02-25 08:57 | XMS_ITS | Encounter Summary ---
Author Organization [facility] Address [address] [place] [address] Phone Care Team Providers Care Correctional Counselor Name Role Phone Agueda Ann MD Primary Care Provider Andie Rossi MD Unavailable West Doll MD Unavailable Britany Coles MD Unavailable [phone] Naun Hoang MD Unavailable + Agueda Ann MD Unavailable Mely Bhatti RN Unavailable [email or web address] Encounter Details Date Type Department Care Team (Late st Contact Info) Description 12/24/2022 Procedure Pass [facility] 30 [place] [address] Social History Tobacco Use Types Packs/Day Years [...] high school, GED, job training, learning the Ukrainian language, technical skills, or developing parenting skills)? [...] 12/24/2022 9:29 AM Natalya Menon, NICOLE * [place] Suicide Severity Rating Scale (Screener/Recent Self-Report) Question [...] documented as of this encounter Care Teams Correctional Counselor Relationship Specialty Start Date End Date Agueda Ann MD [address] [address] [email or web address] PCP - General Family Medicine 02/01/19 Andie Rossi MD [address] [place] [address] Neurology 03/02/19 West Doll MD [address] [place] [address] 104 [place] [address] Cardiology 03/02/19 Britany Coles MD [address] [place] [address] 140 [place] [phone] [email or web address] [email or web address] Surgery 03/02/19 Naun Hoang MD [address] [place] [address] Infectious Diseases 03/02/19 Agueda Ann MD [address] [address] [email or web address] Insurance Assigned Provider 4/6/24 1/6/25 Mely Bhatti, RN [address] [place] [address] [email or web address] [employer] [email or web address] Operator 05/12/23 06/09/23 documented as of this encounter Additional Source Comments The information contained in this document represents components of the legal health record. It is not the complete legal health record.[facility]
--- OUTSIDE RECORDS SUMMARY | 2025-02-25 08:57 | XMS_ITS | Encounter Summary ---
Author Organization [facility] Address [address] [place] [address] Phone Care Team Providers Care Information Services Consultant Name Role Phone Agueda Ann MD Primary Care Provider [phone] Andie Rossi MD Unavailable [phone] West Doll MD Unavailable Britany Coles MD Unavailable [phone] Naun Hoang MD Unavailable + Agueda Ann MD Unavailable Mely Bhatti RN Unavailable [email or web address] Encounter Details Date Type Department Care Team (Late st Contact Info) Description 12/25/2022 Procedure Pass [facility] [address] [place] [address] Social History Tobacco Use Types Packs/Day Years [...] documented as of this encounter Care Teams Information Services Consultant Relationship Specialty Start Date End Date Agueda Ann MD [address] [place] [address] [email or web address] PCP - General Family Medicine 02/01/19 Andie Rossi MD 48 [place] [address] Neurology 03/02/19 West Doll MD [address] [place] [address] 104 [place] [address] Cardiology 03/02/19 Britany Coles MD [address] [place] [address] 140 [place] [phone] Orthopedic Surgery 03/02/19 [place] [address] [place] [address] Infectious Diseases 03/02/19 Agueda Ann MD [address] [address] [email or web address] Insurance Assigned Provider 07/02/23 04/02/24 Mely Bhatti RN [address] [address] [email or web address] PHCM House Decorator 05/12/23 06/09/23 documented as of this encounter Additional Source Comments The information contained in this document represents components of the legal health record. It is not the complete legal health record.[facility]
--- OUTSIDE RECORDS SUMMARY | 2025-02-25 08:57 | XMS_ITS | Encounter Summary ---
Author Organization [facility] Address [address] [place] [address] Phone Care Team Providers Care Commercial Ocean Clammer Name Role Phone Agueda Ann MD Primary Care Provider [phone] Andie Rossi MD Unavailable [phone] West Doll MD Unavailable [phone] Britany Coles MD Unavailable [phone] Naun Hoang MD Unavailable + Agueda Ann MD Unavailable Mely Bhatti RN Unavailable [email or web address] Encounter Details Date Type Department Care Team (Late st Contact Info) Description 12/24/2022 Procedure Pass [facility], [facility] Scan - [facility] 30 [place] [address] Social History Tobacco Use Types Packs/Day Years [...] high school, GED, job training, learning the Zimbabwean language, technical skills, or developing parenting skills)? [...] 9:29 AM AELKT Natalya Delgadillo RN * [place] Suicide Severity Rating Scale (Screener/Recent Self-Report) Question [...] documented as of this encounter Care Teams Commercial Ocean Clammer Relationship Specialty Start Date End Date Agueda Ann MD [address] [address] [email or web address] PCP - General Family Medicine 02/01/19 Andie Rossi MD [address] [place] [address] Neurology 03/02/19 West Doll MD [address] [place] [address] 104 [place] [address] Cardiology 03/02/19 Britany Coles MD [address] [place] [address] 140 [place] [phone] [email or web address] Orthopedic Surgery 03/02/19 Naun Hoang MD [address] [place] [address] Infectious Diseases 03/02/19 Agueda Ann MD [address] [address] [email or web address] Insurance Assigned Provider 07/02/23 04/02/24 Mely Bhatti, NICOLE [address] [address] [email or web address] [email or web address] 05/12/23 06/09/23 documented as of this encounter Additional Source Comments The information contained in this document represents components of the legal health record. It is not the complete legal health record.[facility]
--- OUTSIDE RECORDS SUMMARY | 2025-02-25 08:57 | XMS_ITS | Encounter Summary ---
Author Organization [facility] Address [address] [place] [address] Phone Care Team Providers Care Plate Glass Polisher Name Role Phone Agueda Ann MD Primary Care Provider [phone] Andie Rossi MD Unavailable West Doll MD Unavailable Britany Coles MD Unavailable [phone] Naun Hoang MD Unavailable + Agueda Ann MD Unavailable Mely Bhatti RN Unavailable [email or web address] Encounter Details Date Type Department Care Team (Late st Contact Info) Description 12/24/2022 Procedure Pass [facility], Ct Scan - [facility] 30 [place] [address] Social History Tobacco Use Types Packs/Day Years [...] high school, GED, job training, learning the Djiboutian language, technical skills, or developing parenting skills)? [...] 9:29 AM ALEKT Natalya Delgadillo RN * [place] Suicide Severity Rating Scale (Screener/Recent Self-Report) Question [...] documented as of this encounter Care Teams Plate Glass Polisher Relationship Specialty Start Date End Date Agueda Ann MD [address] [address] [email or web address] PCP - General Family Medicine 02/01/19 Andie Rossi MD [address] [place] [address] Neurology 03/02/19 West Doll MD [address] [place] [address] 104 [place] [address] Cardiology 03/02/19 Britany Coles MD [address] [place] [address] 140 [place] [phone] [email or web address] [email or web address] Surgery 03/02/19 Naun Hoang MD [address] [place] [address] Infectious Diseases 03/02/19 Agueda Ann MD [address] [address] [email or web address] Insurance Assigned Provider 07/02/23 04/02/24 Mely Bhatti, NICOLE [address] [address] [email or web address] 05/12/23 06/09/23 documented as of this encounter Additional Source Comments The information contained in this document represents components of the legal health record. It is not the complete legal health record.[facility]
--- OUTSIDE RECORDS SUMMARY | 2025-02-25 08:57 | XMS_ITS | Encounter Summary ---
Author Organization [facility] Address [address] [place] [address] Phone Care Team Providers Care Crowd Controller Name Role Phone Agueda Ann MD Primary Care Provider [phone] Andie Rossi MD Unavailable [phone] West Doll MD Unavailable Britany Coles MD Unavailable Naun Hoang MD Unavailable + Agueda Ann MD Unavailable Mely Bhatti RN Unavailable [email or web address] Encounter Details Date Type Department Care Team (Late st Contact Info) Description 12/24/2022 Procedure Pass [facility] 30 [place] [address] Social History Tobacco Use Types Packs/Day Years [...] 12/24/2022 9:29 AM Natalya Menon, NICOLE * [place] Suicide Severity Rating Scale (Screener/Recent Self-Report) Question [...] documented as of this encounter Care Teams Crowd Controller Relationship Specialty Start Date End Date Agueda Ann MD [address] [address] [email or web address] PCP - General Family Medicine 02/01/19 Andie Rossi MD [address] [place] [address] Neurology 03/02/19 West Doll MD [address] [place] [address] 104 [place] [address] Cardiology 03/02/19 Britany Coles MD [address] [place] [address] 140 [place] [phone] [email or web address] [email or web address] Surgery 03/02/19 Naun Hoang MD [address] [place] [address] Infectious Diseases 03/02/19 Agueda Ann MD [address] [address] [email or web address] Insurance Assigned Provider 4/6/24 1/6/25 Mely Bhtati, RN [address] [place] [address] [email or web address] 05/12/23 06/09/23 documented as of this encounter Additional Source Comments The information contained in this document represents components of the legal health record. It is not the complete legal health record.[facility]
--- OUTSIDE RECORDS SUMMARY | 2025-02-25 08:57 | XMS_ITS | Encounter Summary ---
Author Organization [facility] Address [address] [place] [address] Phone Care Team Providers Care Manager Business Operations Name Role Phone Agueda Ann MD Primary Care Provider [phone] Andie Rossi MD Unavailable [phone] West Doll MD Unavailable Britany Coles MD Unavailable Naun Hoang MD Unavailable + Agueda Ann MD Unavailable Latosha Garcia OT Unavailable Latosha Garcia OT Unavailable [phone] Mely Bhatti RN Unavailable [email or web address] Encounter Details Date Type Department Care Team (Late st Contact Info) Description 07/31/2021 Procedure Pass [facility] Endoscopy Admitting Dept Virtual Department 30 [place] [address] Social History Tobacco Use Types Packs/Day Years [...] documented as of this encounter Care Teams Manager Business Operations Relationship Specialty Start Date End Date Agueda Ann MD [address] [place] [address] PCP - General Family Medicine 02/01/19 Andie Rossi MD [address] [place] [address] Neurology 03/02/19 eWst Doll MD [address] [place] [address] Cardiology 03/02/19 Britany Coles MD 175 [facility] 140 [place] [phone] [email or web address] 03/02/19 Naun Hoang MD 3300 [facility] 3C [place] [address] Infectious Diseases 03/02/19 Agueda Ann MD [address] [address] [email or web address] Insurance Assigned Provider 07/02/23 04/02/24 Latosha Garcia, OT 30 [place] [address] [email or web address] Transitions Roll FinisherMachine Adjuster Helper Therapy 11/05/22 11/07/22 Latosha Garcia, OT 30 [place] [address] [email or web address] Transitions Roll FinisherMachine Adjuster Helper Therapy 11/24/22 11/25/22 Mely Bhatti RN 30 [place] [address] [email or web address] Roll Finisher 05/12/23 06/09/23 documented as of this encounter Additional Source Comments The information contained in this document represents components of the legal health record. It is not the complete legal health record.[facility]
--- OUTSIDE RECORDS SUMMARY | 2025-02-25 08:58 | XMS_ITS | Encounter Summary ---
Author Organization [facility] Address [address] [place] [address] Phone Care Team Providers Care Grocery Specialist Name Role Phone Agueda Ann MD Primary Care Provider [phone] Andie Rossi MD Unavailable [phone] West Doll MD Unavailable Britany Coles MD Unavailable [phone] Naun Hoang MD Unavailable + Agueda Ann MD Unavailable Mely Bhatti RN Unavailable [email or web address] Encounter Details Date Type Department Care Team (Late st Contact Info) Description 12/25/2022 Procedure Pass Non-Invasive Cardiology 30 [place] [address] Social History Tobacco Use Types Packs/Day Years [...] high school, GED, job training, learning the Paraguayan language, technical skills, or developing parenting skills)? [...] documented as of this encounter Care Teams Grocery Specialist Relationship Specialty Start Date End Date Agueda Ann MD [address] [place] [address] [email or web address] PCP - General Family Medicine 02/01/19 Andie Rossi MD 48 [place] [address] Neurology 03/02/19 West Doll MD [address] [place] [address] 104 [place] [address] Cardiology 03/02/19 Britany Coles MD [address] [place] [address] 140 [place] [phone] [email or web address] Orthopedic Surgery 03/02/19 [place] [address] [place] [address] Infectious Diseases 03/02/19 Agueda Ann MD [address] [address] [email or web address] Insurance Assigned Provider 07/02/23 04/02/24 Mely Bhatti RN [address] [address] [email or web address] .[facility] PHCM A And P Mechanic 05/12/23 06/09/23 documented as of this encounter Additional Source Comments The information contained in this document represents components of the legal health record. It is not the complete legal health record.[facility]
--- OUTSIDE RECORDS SUMMARY | 2025-02-25 08:58 | XMS_ITS | Encounter Summary ---
Author Organization [facility] Address [address] [place] [address] Phone Care Team Providers Care Cash Surrender Calculator Name Role Phone Agueda Ann MD Primary Care Provider [phone] Andie Rossi MD Unavailable [phone] West Doll MD Unavailable Britany Coles MD Unavailable Naun Hoang MD Unavailable + Agueda Ann MD Unavailable Latosha Garcia OT Unavailable [phone] Latosha Garcia OT Unavailable [phone] Mely Bhatti RN Unavailable [email or web address] Encounter Details Date Type Department Care Team (Late st Contact Info) Description 10/04/[address] [facility],Outside Imaging 30 [place] [address] System, Provider Not In, PhD Partners [address] [address] Social History Tobacco Use Types Packs/Day Years [...] documented as of this encounter Care Teams Cash Surrender Calculator Relationship Specialty Start Date End Date Agueda Ann MD [address] [address] PCP - General Family Medicine 02/01/19 Andie Rossi MD 48 [place] [address] Neurology 03/02/19 West Doll MD [address] [place] [address] 104 [place] [address] Cardiology 03/02/19 Britany Coles MD [address] [place] [address] 140 [place] [phone] [email or web address] [email or web address] Surgery 03/02/19 [place] [address] [place] [address] Infectious Diseases 03/02/19 Agueda Ann MD [address] [address] [email or web address] Insurance Assigned Provider 07/02/23 04/02/24 Latosha Garcia, OT 30 [place] [address] [email or web address] Transitions Associate BuyerGravel Screener Therapy 11/05/22 11/07/22 Latosha Garcia, OT 30 [place] [address] [email or web address] Transitions Associate BuyerGravel Screener Therapy 11/24/22 11/25/22 Mely Bhatti, NICOLE 30 [place] [address] [email or web address] Center[facility] Associate Buyer 05/12/23 06/09/23 documented as of this encounter Additional Source Comments The information contained in this document represents components of the legal health record. It is not the complete legal health record.[facility]
--- OUTSIDE RECORDS SUMMARY | 2025-02-25 08:58 | XMS_ITS | Encounter Summary ---
Author Organization [facility] Address [address] [place] [address] Phone Care Team Providers Care Chief Inspector Name Role Phone Agueda Ann MD Primary Care Provider [phone] Andie Rossi MD Unavailable West Doll MD Unavailable Britany Coles MD Unavailable Naun Hoang MD Unavailable + Agueda Ann MD Unavailable Mely Bhatti RN Unavailable [email or web address] Encounter Details Date Type Department Care Team (Late st Contact Info) Description 12/24/2022 Procedure Pass [facility] 30 [place] [address] Social History Tobacco Use Types Packs/Day Years [...] high school, GED, job training, learning the Croatian language, technical skills, or developing parenting skills)? [...] 12/24/2022 9:29 AM Natalya Menon, NICOLE * [place] Suicide Severity Rating Scale (Screener/Recent Self-Report) Question [...] as of this encounter Care Teams Chief Inspector Relationship Specialty Start Date End Date Agueda Ann MD [address] [address] [email or web address] PCP - General Family Medicine 02/01/19 Andie Rossi MD [address] [place] [address] Neurology 03/02/19 West Doll MD [address] [place] [address] 104 [place] [address] Cardiology 03/02/19 Britany Coles MD [address] [place] [address] 140 [place] [phone] [email or web address] [email or web address] Surgery 03/02/19 Naun Hoang MD [address] [place] [address] Infectious Diseases 03/02/19 Agueda Ann MD [address] [address] [email or web address] Insurance Assigned Provider 4/6/24 1/6/25 Mely Bhatti, RN [address] [place] [address] [email or web address] Estimator 05/12/23 06/09/23 documented as of this encounter Additional Source Comments The information contained in this document represents components of the legal health record. It is not the complete legal health record.[facility]
== END 2025-02-25 08:35 | disposition home or self-care (01) ==
LOC: HO.MMNH3L 08:34
PROVIDERS: Visit Provider Physician Assistant Medical
DX: I25.9 Chronic ischemic heart disease, unspecified (principal); I69.398 Other sequelae of cerebral infarction; E03.9 Hypothyroidism, unspecified; Z89.611 Acquired absence of right leg above knee
CPT/HCPCS: 36415; 80048; 85025

== ENCOUNTER 2025-03-04 09:08 | Outpatient (REF) | payer MEDICARE, MEDICAID, SELFPAY ==
[2025-03-04 07:23] LABS: MANUAL DIFF FLAG NO
[2025-03-04 07:35] LABS: Hematocrit 31.1 % (37.0-47.0); Hemoglobin 9.6 g/dl (12.0-16.0); Imm Gran Abs Auto 0.02 X10*3/uL (0.00-0.03); Imm Gran Pct Auto 0.3 % (0.0-0.4); Lymphocytes Absolute Auto 2.2 X10*3/uL (1.2-4.9); Mean Corpuscular HGB Conc 30.9 g/dl (31.0-35.0); Mean Corpuscular Hemoglobin 26.1 pg (27.0-33.0); Mean Corpuscular Volume 84.5 fL (80.0-98.0); NRBC Abs Auto 0.000 X10*3/uL (0.0-0.012); NRBC Pct Auto 0.0 /100WBC (0.0-0.2); Platelet Count 338 X10*3/uL (160-400); Red Blood Count 3.68 X10*6/uL (4.20-5.50); White Blood Count 7.7 X10*3/uL (4.8-10.8)
[2025-03-04 07:47] LABS: Anion Gap 15 (12-20); Blood Urea Nitrogen 51 mg/dL (9-16); Calcium 9.0 mg/dL (8.4-10.2); Carbon Dioxide 24 mmol/L (22-29); Chloride 107 mmol/L (96-108); Estimated Glomerular Filt Rate 45; Potassium 4.9 mmol/L (3.3-5.1); Sodium 141 mmol/L (135-145)
== END 2025-03-04 09:09 | disposition home or self-care (01) ==
LOC: HO.MMNH3L 09:08
PROVIDERS: Visit Provider Physician Assistant Medical
DX: I25.9 Chronic ischemic heart disease, unspecified (principal); I69.398 Other sequelae of cerebral infarction; E03.9 Hypothyroidism, unspecified; Z89.611 Acquired absence of right leg above knee
CPT/HCPCS: 36415; 80048; 85025

== ENCOUNTER 2025-03-11 09:16 | Outpatient (REF) | payer MEDICARE, MEDICAID, SELFPAY ==
[2025-03-11 07:55] LABS: MANUAL DIFF FLAG NO
[2025-03-11 08:06] LABS: Hematocrit 28.1 % (37.0-47.0); Hemoglobin 8.6 g/dl (12.0-16.0); Imm Gran Abs Auto 0.02 X10*3/uL (0.00-0.03); Imm Gran Pct Auto 0.3 % (0.0-0.4); Lymphocytes Absolute Auto 2.6 X10*3/uL (1.2-4.9); Mean Corpuscular HGB Conc 30.6 g/dl (31.0-35.0); Mean Corpuscular Hemoglobin 26.5 pg (27.0-33.0); Mean Corpuscular Volume 86.5 fL (80.0-98.0); NRBC Abs Auto 0.000 X10*3/uL (0.0-0.012); NRBC Pct Auto 0.0 /100WBC (0.0-0.2); Platelet Count 265 X10*3/uL (160-400); Red Blood Count 3.25 X10*6/uL (4.20-5.50); White Blood Count 7.6 X10*3/uL (4.8-10.8)
[2025-03-11 08:40] LABS: Anion Gap 12 (12-20); Blood Urea Nitrogen 64 mg/dL (9-16); Calcium 8.5 mg/dL (8.4-10.2); Carbon Dioxide 20 mmol/L (22-29); Chloride 113 mmol/L (96-108); Estimated Glomerular Filt Rate 34; Potassium 5.3 mmol/L (3.3-5.1); Sodium 140 mmol/L (135-145)
== END 2025-03-11 09:17 | disposition home or self-care (01) ==
LOC: HO.MMNH3L 09:16
PROVIDERS: Visit Provider Physician Assistant Medical
DX: I25.9 Chronic ischemic heart disease, unspecified (principal); E03.9 Hypothyroidism, unspecified; I69.398 Other sequelae of cerebral infarction; Z89.611 Acquired absence of right leg above knee
CPT/HCPCS: 36415; 80048; 85025

== ENCOUNTER 2025-03-12 11:51 | Outpatient (REF) | payer MEDICARE, MEDICAID, SELFPAY ==
[2025-03-13 13:02] LABS: CDiff Gene PCR NEGATIVE (Negative)
--- OUTSIDE RECORDS SUMMARY | 2025-03-13 15:47 | XMS_ITS | Encounter Summary ---
Author Organization [facility] Address [address] [place] [address] Phone Care Team Providers Care Moving Picture Operator Name Role Phone Agueda Ann MD Primary Care Provider [phone] Andie Rossi MD Unavailable [phone] West Doll MD Unavailable [phone] Britany Coles MD Unavailable Naun Hoang MD Unavailable + Agueda Ann MD Unavailable Mely Bhatti RN Unavailable [email or web address] Encounter Details Date Type Department Care Team (Late st Contact Info) Description 12/24/2022 Procedure Pass [facility] 30 [place] [address] Social History Tobacco Use Types Packs/Day Years [...] 12/24/2022 9:29 AM Natalya Menon, NICOLE * [place] Suicide Severity Rating Scale [...] documented as of this encounter Care Teams Moving Picture Operator Relationship Specialty Start Date End Date Agueda Ann MD [address] [address] [email or web address] PCP - General Family Medicine 02/01/19 Andie Rossi MD [address] [place] [address] Neurology 03/02/19 West Doll MD [address] [place] [address] [place] [address] Cardiology 03/02/19 Britany Coles MD [address] [place] [address] [place] [address] [email or web address] [email or web address] Surgery 03/02/19 Naun Hoang MD [address] [place] [address] Infectious Diseases 03/02/19 Agueda Ann MD [address] [address] [email or web address] Insurance Assigned Provider 07/02/23 04/02/24 Mely Bhatti RN [address] [address] [email or web address] Dock Guard 05/12/23 06/09/23 documented as of this encounter Additional Source Comments The information contained in this document represents components of the legal health record. It is not the complete legal health record.[facility]
--- OUTSIDE RECORDS SUMMARY | 2025-03-13 15:47 | XMS_ITS | Encounter Summary ---
Author Organization [facility] Address [address] [place] [address] Phone Care Team Providers Care Assurance Manager Name Role Phone Agueda Ann MD Primary Care Provider [phone] Andie Rossi MD Unavailable [phone] West Doll MD Unavailable [phone] Britany Coles MD Unavailable [phone] Naun Hoang MD Unavailable + Reason for Visit * Reason Onset Date Comments Hypertension 03/08/2025 Encounter Details Date Type Department Care Team (Late st Contact Info) Description 03/08/2025 Patient Outreach [facility] 100 [place] [address] Cintia Guzmán [address] [place] [address] [email or web address] Hypertension Social History Tobacco Use Types Packs/Day Years [...] as of this encounter Progress Notes * AnabelFabianaCintia Isabelle - 03/08/2025 10:31 AM EST Encounter Created by [facility]: Pt is overdue for an annual appointment and a BP check. LVM for pt. Will PG for follow-up. IF pt calls back, pls schedule annual appointment. documented in this encounter Plan of Treatment Not on file documented as of this encounter Visit Diagnoses Not on filedocumented in this encounter Additional Health Concerns Assessment Noted Time PHQ-2 Depression Total Score: 0 01/21/20 21 11:07 AM EDT documented as of this encounter Care Teams Assurance Manager Relationship Specialty Start Date End Date Agueda Ann MD [address] [place] [address] [email or web address] PCP - General Family Medicine 02/01/19 Andie Rossi MD [address] [place] [address] Neurology 03/02/19 West Doll MD [address] [place] [address] [place] [address] Cardiology 03/02/19 Britany Coles MD [address] [place] [address] [address] [place] [address] [email or web address] [email or web address] Surgery 03/02/19 Naun Hoang MD [address] [place] [address] Infectious Diseases 03/02/19 documented as of this encounter Additional Source Comments The information contained in this document represents components of the legal health record. It is not the complete legal health record.[facility]
--- OUTSIDE RECORDS SUMMARY | 2025-03-13 15:47 | XMS_ITS | Clinical Summary ---
Author Organization [employer] Address [address] [facility] 7t [place] [address] Care Team Providers Care Forensics Analyst Name Role Phone Unavailable Primary Care [...] Recently Relevant to Health Maintenance Insurance [facility] MEDICAID STAND ADULT
--- OUTSIDE RECORDS SUMMARY | 2025-03-13 15:47 | XMS_ITS | Encounter Summary ---
Author Organization [employer] Address [address] [facility] 7t [place] [address] Care Team Providers Care Publicity Agent Name Role Phone Unavailable Primary Care Provider Unavailabl e Reason for Visit * Reason Onset Date Comments medical clearance 05/27/2022 Encounter Details Date Type Department Care Team (Late st Contact Info) Description 05/27/2022 Telephone [facility] ADULT DENTAL [address] [place] [address] Davonte Cunningham DDS medical clearance Social History [...] was for medical clearance. Pls re send [phone] * Telephone Encounter - Lucina Leigh - [...] was for medical clearance. Pls re send [phone] documented in this encounter Plan of Treatment Not on file documented as of this encounter Visit Diagnoses Not on filedocumented in this encounter
--- OUTSIDE RECORDS SUMMARY | 2025-03-13 15:47 | XMS_ITS | Encounter Summary ---
Author Organization [facility] Address [address] [place] [address] Phone Care Team Providers Care Bulk Clerk Name Role Phone Agueda Ann MD Primary Care Provider [phone] Andie Rossi MD Unavailable West Doll MD Unavailable Britany Coles MD Unavailable Naun Hoang MD Unavailable + Agueda Ann MD Unavailable Mely Bhatti RN Unavailable [email or web address] Encounter Details Date Type Department Care Team (Late st Contact Info) Description 12/24/2022 Procedure Pass [facility], [facility] 30 [place] [address] Social History Tobacco Use Types Packs/Day Years [...] school, GED, job training, learning the [place] language, technical skills, or developing parenting skills)? [...] 12/24/2022 9:29 AM Natalya Menon, NICOLE * [place] Suicide Severity Rating Scale (Screener/Recent Self-Report) Question [...] documented as of this encounter Care Teams Bulk Clerk Relationship Specialty Start Date End Date Agueda Ann MD [address] [address] [email or web address] PCP - General Family Medicine 02/01/19 Andie Rossi MD [address] [place] [address] Neurology 03/02/19 West Doll MD [address] [place] [address] [place] [address] Cardiology 03/02/19 Britany Coles MD [address] [place] [address] [place] [address] [email or web address] 03/02/19 Naun Hoang MD [address] [place] [address] Infectious Diseases 03/02/19 Agueda Ann MD [address] [address] [email or web address] Insurance Assigned Provider 07/02/23 04/02/24 Mely Bhatti RN [address] [address] [email or web address] Supervisor [employer] 05/12/23 06/09/23 documented as of this encounter Additional Source Comments The information contained in this document represents components of the legal health record. It is not the complete legal health record.[facility]
--- OUTSIDE RECORDS SUMMARY | 2025-03-13 15:47 | XMS_ITS | Encounter Summary ---
Author Organization [employer] Address [address] [facility] 7t [place] [address] Care Team Providers Care Travel Sales Consultant Name Role Phone Unavailable Primary Care Provider Unavailabl e Encounter Details Date Type Department Care Team (Latest Contact Info) Description 06/29/2021 Abstract [facility] CONVERSIONS Dental, Provider, DDS Social History [...]
--- OUTSIDE RECORDS SUMMARY | 2025-03-13 15:47 | XMS_ITS | Encounter Summary ---
Author Organization [facility] Address [address] [place] [address] Phone Care Team Providers Care Soil Expert Name Role Phone Agueda Ann MD Primary Care Provider [phone] Andie Rossi MD Unavailable [phone] West Doll MD Unavailable [phone] Britany Coles MD Unavailable Naun Hoang MD Unavailable + Agueda Ann MD Unavailable Mely Bhatti RN Unavailable [email or web address] Encounter Details Date Type Department Care Team (Late st Contact Info) Description 12/24/2022 Procedure Pass [facility], [facility] 30 [place] [address] Social History Tobacco Use Types Packs/Day Years [...] 9:29 AM ALEKT Natalya Delgadillo RN * [place] Suicide Severity Rating Scale (Screener/Recent Self-Report) Question [...] as of this encounter Care Teams Soil Expert Relationship Specialty Start Date End Date Agueda Ann MD [address] [address] [email or web address] PCP - General Family Medicine 02/01/19 Andie Rossi MD [address] [place] [address] Neurology 03/02/19 West Doll MD [address] [place] [address] [place] [address] Cardiology 03/02/19 Britany Coles MD [address] [place] [address] [place] [address] [email or web address] 03/02/19 Naun Hoang MD [address] [place] [address] Infectious Diseases 03/02/19 Agueda Ann MD [address] [address] [email or web address] Insurance Assigned Provider 07/02/23 04/02/24 Mely Bhatti RN [address] [address] [email or web address] .[facility] Wildfire Prevention Specialist 05/12/23 06/09/23 documented as of this encounter Additional Source Comments The information contained in this document represents components of the legal health record. It is not the complete legal health record.[facility]
--- OUTSIDE RECORDS SUMMARY | 2025-03-13 15:47 | XMS_ITS | Clinical Summary ---
Author Organization [facility] it Address [address] [place] [address] Care Team Providers Care Planning Technician Name Role Phone Unavailable Primary Care Provider Unavailabl e Immunizations Immunization Administration Dates Next Due Pfizer SARS-CoV-2 COVID-19, mRNA, LNP-S, preservative free 07/02/2020,06/07/2020 Surgical History Surgery Date Site/Laterality Comments NECK SURGERY PROCEDURE: HISTORICAL NECK SURGERY; COMMENT: spinal stenosis TONSILLECTOMY PROCEDURE: HISTORICAL TONSILLECTOMY CHOLECYSTECTOMY 09/1989 PROCEDURE: HISTORICAL CHOLECYSTECTOMY BREAST REDUCTION PROCEDURE: OH BREAST REDUCTION ROBOTIC ASSISTED HYSTERECTOMY 03/05/14 PROCEDURE: [...] Date Last Done Comments Breast Cancer Screening 03/27/2020 03/27/2018 Depression Screening 03/28/2024 COVID-19 Vaccine ( - season) 2024 07/02/2020, 06/07/2020 Influenza Vaccine (#1) 2024 , 12/09/2021, 12/14/2020, Additional history exists DTaP,Tdap,and Td Vaccines (3 - Td or Tdap) 12/27/2027 12/26/2017, 11/15/2008 RSV Immunization Adult Patients (1 - 1-dose 75+ series) 07/23/2030 Zoster Vaccines Completed 02/27/2019, 11/24/2018 Pneumococcal Vaccine: [...] 20 months Aged Out No longer eligible based on patient's age to complete this topic Varicella Vaccines Aged Out No longer eligible based on patient's age to complete this topic
--- OUTSIDE RECORDS SUMMARY | 2025-03-13 15:47 | XMS_ITS | Encounter Summary ---
Author Organization [facility] Address [address] [place] [address] Phone Care Team Providers Care Sanforizer Name Role Phone Agueda Ann MD Primary Care Provider [phone] Andie Rossi MD Unavailable West Doll MD Unavailable [phone] Britany Coles MD Unavailable Naun Hoang MD Unavailable + Agueda Ann MD Unavailable Mely Bhatti RN Unavailable [email or web address] Encounter Details Date Type Department Care Team (Late st Contact Info) Description 12/24/2022 Procedure Pass [facility] [address] [place] [address] Social History Tobacco Use Types Packs/Day Years [...] high school, GED, job training, learning the Tongan language, technical skills, or developing parenting skills)? [...] 12/24/2022 9:29 AM Natalya Menon, NICOLE * [place] Suicide Severity Rating Scale (Screener/Recent Self-Report) Question [...] documented as of this encounter Care Teams Sanforizer Relationship Specialty Start Date End Date Agueda Ann MD [address] [address] [email or web address] PCP - General Family Medicine 02/01/19 Andie Rossi MD [address] [place] [address] Neurology 03/02/19 West Doll MD [address] [place] [address] [place] [address] Cardiology 03/02/19 Britany Coles MD [address] [place] [address] [place] [address] [email or web address] 03/02/19 Naun Hoang MD [address] [place] [address] Infectious Diseases 03/02/19 Agueda Ann MD [address] [address] [email or web address] Insurance Assigned Provider 07/02/23 04/02/24 Mely Bhatti RN [address] [address] [email or web address] Supervisor Denture Department 05/12/23 06/09/23 documented as of this encounter Additional Source Comments The information contained in this document represents components of the legal health record. It is not the complete legal health record.[facility]
--- OUTSIDE RECORDS SUMMARY | 2025-03-13 15:47 | XMS_ITS | Encounter Summary ---
Author Organization [facility] Address [address] [place] [address] Phone Care Team Providers Care Rivers And Lakes Boatman Name Role Phone Agueda Ann MD Primary Care Provider [phone] Andie Rossi MD Unavailable West Doll MD Unavailable Britany Coles MD Unavailable [phone] Naun Hoang MD Unavailable + Agueda Ann MD Unavailable Latosha Garcia OT Unavailable [phone] Latosha Garcia OT Unavailable [phone] Mely Bhatti RN Unavailable [email or web address] Encounter Details Date Type Department Care Team (Late st Contact Info) Description 11/04/2022 Procedure Pass [facility] [address] [place] [address] Social History Tobacco Use Types Packs/Day Years [...] high school, GED, job training, learning the Mexican language, technical skills, or developing parenting skills)? [...] 11/04/2022 1:06 AM Lucita Hirsch, NICOLE * [place] Suicide Severity Rating Scale (Screener/Recent Self-Report) Question [...] documented as of this encounter Care Teams Rivers And [place] Boatman Relationship Specialty Start Date End Date Agueda Ann MD [address] [address] [email or web address] PCP - General Family Medicine 02/01/19 Andie Rossi MD [address] [place] [address] Neurology 03/02/19 West Doll MD [address] [place] [address] [place] [address] Cardiology 03/02/19 Britany Coles MD [address] [place] [address] [place] [address] [email or web address] Orthopedic Surgery 03/02/19 Naun Hoang MD [address] [place] [address] Infectious Diseases 03/02/19 Agueda Ann MD [address] [address] [email or web address] Insurance Assigned Provider 07/02/23 04/02/24 Latosha Garcia, OT 30 [place] [address] [email or web address] Transitions Knitting TeacherBuyer Agent Therapy 11/05/22 11/07/22 Latosha Garcia, OT 30 [place] [address] [email or web address] Transitions Knitting TeacherBuyer Agent Therapy 11/24/22 11/25/22 Mely Bhatti, NICOLE 30 [place] [address] [email or web address] Knitting Teacher 05/12/23 06/09/23 documented as of this encounter Additional Source Comments The information contained in this document represents components of the legal health record. It is not the complete legal health record.[facility]
--- OUTSIDE RECORDS SUMMARY | 2025-03-13 15:47 | XMS_ITS | Clinical Summary ---
Author Organization [address] Address [address] [place] [id number] Care Team Providers Care Global Compensation Manager Name Role Phone Unavailable Primary Care [...]
--- OUTSIDE RECORDS SUMMARY | 2025-03-13 15:47 | XMS_ITS | Encounter Summary ---
Author Organization [facility] Address [address] [place] [address] Phone Care Team Providers Care Electron Beam Machine Welder Setter Name Role Phone Agueda Ann MD Primary Care Provider [phone] Andie Rossi MD Unavailable West Doll MD Unavailable [phone] Britany Coles MD Unavailable [phone] Naun Hoang MD Unavailable + Agueda Ann MD Unavailable Mely Bhatti RN Unavailable [email or web address] Encounter Details Date Type Department Care Team (Late st Contact Info) Description 12/25/2022 Procedure Pass [facility] 30 [place] [address] Social History Tobacco Use Types Packs/Day Years [...] high school, GED, job training, learning the Kuwaiti language, technical skills, or developing parenting skills)? [...] documented as of this encounter Care Teams Electron Beam Machine Welder Setter Relationship Specialty Start Date End Date Agueda Ann MD [address] [place] [address] [email or web address] PCP - General Family Medicine 02/01/19 Andie Rossi MD [address] [place] [address] Neurology 03/02/19 West Doll MD [address] [place] [address] [place] [address] Cardiology 03/02/19 Britany Coles MD [address] [place] [address] [email or web address] Surgery 03/02/19 Naun Hoang MD [address] [place] [address] Infectious Diseases 03/02/19 Agueda Ann MD [address] [place] [address] [email or web address] Insurance Assigned Provider 07/02/23 04/02/24 Mely Bhatti RN [address] [address] [email or web address] PHCM Processor Helper 05/12/23 06/09/23 documented as of this encounter Additional Source Comments The information contained in this document represents components of the legal health record. It is not the complete legal health record.[facility]
--- OUTSIDE RECORDS SUMMARY | 2025-03-13 15:47 | XMS_ITS | Encounter Summary ---
Author Organization [facility] Address [address] [place] [address] Phone Care Team Providers Care Technology Training Associate Name Role Phone Agueda Ann MD Primary Care Provider [phone] Andie Rossi MD Unavailable West Doll MD Unavailable Britany Coles MD Unavailable Naun Hoang MD Unavailable + Agueda Ann MD Unavailable Mely Bhatti RN Unavailable [email or web address] Encounter Details Date Type Department Care Team (Late st Contact Info) Description 12/24/2022 Procedure Pass [facility] 30 [place] [address] Social History Tobacco Use Types Packs/Day Years [...] high school, GED, job training, learning the Mosotho language, technical skills, or developing parenting skills)? [...] 12/24/2022 9:29 AM Natalya Menon, NICOLE * [place] Suicide Severity Rating Scale (Screener/Recent Self-Report) Question [...] documented as of this encounter Care Teams Technology Training Associate Relationship Specialty Start Date End Date Agueda Ann MD [address] [address] [email or web address] PCP - General Family Medicine 02/01/19 Andie Rossi MD [address] [place] [address] Neurology 03/02/19 West Doll MD [address] [place] [address] [place] [address] Cardiology 03/02/19 Britany Coles MD [address] [place] [address] [place] [address] [email or web address] 03/02/19 Naun Hoang MD [address] [place] [address] Infectious Diseases 03/02/19 Agueda Ann MD [address] [address] [email or web address] Insurance Assigned Provider 07/02/23 04/02/24 Mely Bhatti RN [address] [address] [email or web address] [address] [facility] Justice 05/12/23 06/09/23 documented as of this encounter Additional Source Comments The information contained in this document represents components of the legal health record. It is not the complete legal health record.[facility]
--- OUTSIDE RECORDS SUMMARY | 2025-03-13 15:47 | XMS_ITS | Patient Health Record ---
Author Organization [facility] tate Billing Info Address [address] [place] [address] Phone [phone] Care Team Providers Care Ip Counsel Name Role Phone Bettina BARTOLO BOND Supriya [phone] Reason For Referral No Information Social History Sex Observation Social History Observation Description Sex Observation Female Social History Social History Social Info Question Answer Notes Tobacco Status: Patient is a never smoker High Risk for Sexually Acquired Diseases including HIV: At Risk: No Illicit Drug Use: Patient/Family reports: No illicit drug use Alcohol Use: Patient did prior to Ambulatory Status: : is independent Living Environment: Reported as: House/Condo/Apartment Plan Of Treatment No Information
--- OUTSIDE RECORDS SUMMARY | 2025-03-13 15:47 | XMS_ITS | Encounter Summary ---
Author Organization [facility] Address [address] [place] [address] Phone Care Team Providers Care Aircraft Electrical Systems Specialist Name Role Phone Agueda Ann MD Primary Care Provider [phone] Andie Rossi MD Unavailable West Doll MD Unavailable [phone] Britany Coles MD Unavailable [phone] Naun Hoang MD Unavailable + Agueda Ann MD Unavailable Latosha Garcia OT Unavailable Mely Bhatti RN Unavailable [email or web address] Encounter Details Date Type Department Care Team (Late st Contact Info) Description 11/18/2022 Procedure Pass [facility] 30 [place] [address] Social History Tobacco Use Types Packs/Day Years [...] documented as of this encounter Care Teams Aircraft Electrical Systems Specialist Relationship Specialty Start Date End Date Agueda Ann MD [address] [place] [address] [email or web address] PCP - General Family Medicine 02/01/19 Andie Rossi MD [address] [place] [address] Neurology 03/02/19 West Doll MD [address] [place] [address] [address] [place] [address] Cardiology 03/02/19 Britany Coles MD [address] [place] [address] [address] [place] [address] [email or web address] 03/02/19 Naun Hoang MD [address] [place] [address] Infectious Diseases 03/02/19 Agueda Ann MD [address] [address] [email or web address] Insurance Assigned Provider 07/02/23 04/02/24 Latosha Garcia, OT 30 [place] [address] [email or web address] Transitions Seeing Eye Dog TrainerCardiopulmonary Technologist Chief Therapy 11/24/22 11/25/22 Mely Bhatti, NICOLE 30 [place] [address] [email or web address] PHCM Seeing Eye Dog Trainer 05/12/23 06/09/23 documented as of this encounter Additional Source Comments The information contained in this document represents components of the legal health record. It is not the complete legal health record.[facility]
--- OUTSIDE RECORDS SUMMARY | 2025-03-13 15:47 | XMS_ITS | Encounter Summary ---
Author Organization [facility] Address [address] [place] [address] Phone Care Team Providers Care Traffic Superintendent Name Role Phone Agueda Ann MD Primary Care Provider [phone] Andie Rossi MD Unavailable [phone] West Doll MD Unavailable Britany Coles MD Unavailable Naun Hoang MD Unavailable + Agueda Ann MD Unavailable Latosha Garcia OT Unavailable Latosha Garcia OT Unavailable [phone] Mely Bhtati RN Unavailable [email or web address] Encounter Details Date Type Department Care Team (Late st Contact Info) Description 07/31/2021 Procedure Pass [facility] Endoscopy Admitting Dept Virtual Department 30 [place] [address] Social History Tobacco Use Types Packs/Day Years [...] high school, GED, job training, learning the German language, technical skills, or developing parenting skills)? [...] documented as of this encounter Care Teams Traffic Superintendent Relationship Specialty Start Date End Date Agueda Ann MD [address] [place] [address] PCP - General Family Medicine 02/01/19 Andie Rossi MD [address] [place] [address] Neurology 03/02/19 West Doll MD [address] [place] [address] Cardiology 03/02/19 Britany Coles MD [address] [place] [address] 104 [place] [address] [email or web address] 03/02/19 Naun Hoang MD [address] [address] Infectious Diseases 03/02/19 Agueda Ann MD [address] [address] [email or web address] Insurance Assigned Provider 07/02/23 04/02/24 Latosha Garcia, OT 30 [place] [address] [email or web address] Transitions Plugger ManSkidway Worker Therapy 11/05/22 11/07/22 Latosha Garcia, OT 30 [place] [address] [email or web address] Transitions Plugger ManSkidway Worker Therapy 11/24/22 11/25/22 Mely Bhatti, NICOLE 30 [place] [address] [email or web address] Plugger Man 05/12/23 06/09/23 documented as of this encounter Additional Source Comments The information contained in this document represents components of the legal health record. It is not the complete legal health record.[facility]
--- OUTSIDE RECORDS SUMMARY | 2025-03-13 15:47 | XMS_ITS | Encounter Summary ---
Author Organization [employer] Address [address] 7[address] [place] [address] Care Team Providers Care Gas Welding Machine Operator Name Role Phone Unavailable Primary Care Provider Unavailabl e Encounter Details Date Type Department Care Team (Latest Contact Info) Description 05/02/2018 Abstract [facility] CONVERSIONS Dental, Provider, DDS [...]
--- OUTSIDE RECORDS SUMMARY | 2025-03-13 15:47 | XMS_ITS | Encounter Summary ---
Author Organization [facility] Address [address] [place] [address] Phone Care Team Providers Care Computer Systems Architect Name Role Phone Agueda Ann MD Primary Care Provider [phone] Andie Rossi MD Unavailable [phone] West Doll MD Unavailable Britany Coles MD Unavailable Naun Hoang MD Unavailable + Agueda Ann MD Unavailable Mely Bhatti RN Unavailable [email or web address] Encounter Details Date Type Department Care Team (Late st Contact Info) Description 12/24/2022 Procedure Pass [facility], [facility] 30 [place] [address] Social History Tobacco Use Types Packs/Day Years [...] high school, GED, job training, learning the Nigerian language, technical skills, or developing parenting skills)? [...] 9:29 AM ALEKT Natalya Delgadillo RN * [place] Suicide Severity Rating Scale (Screener/Recent Self-Report) Question [...] documented as of this encounter Care Teams Computer Systems Architect Relationship Specialty Start Date End Date Agueda Ann MD [address] [address] [email or web address] PCP - General Family Medicine 02/01/19 Andie Rossi MD [address] [place] [address] Neurology 03/02/19 West Doll MD [address] [place] [address] [place] [address] Cardiology 03/02/19 Britany Coles MD [address] [place] [address] [place] [address] [email or web address] 03/02/19 Naun Hoang MD [address] [place] [address] Infectious Diseases 03/02/19 Agueda Ann MD [address] [address] [email or web address] Insurance Assigned Provider 07/02/23 04/02/24 Mely Bhatti RN [address] [address] [email or web address] Ground School Instructor 05/12/23 06/09/23 documented as of this encounter Additional Source Comments The information contained in this document represents components of the legal health record. It is not the complete legal health record.[facility]
--- OUTSIDE RECORDS SUMMARY | 2025-03-13 15:47 | XMS_ITS | Clinical Summary ---
Author Organization [facility] Address [address] [place] [address] Phone Care Team Providers Care Landfill Gas Collection System Operator Name Role Phone Agueda Ann MD Primary Care Provider [phone] Andie Rossi MD Unavailable [phone] West Doll MD Unavailable [phone] Britany Coles MD Unavailable [phone] Naun Hoang MD Unavailable + Allergies No [...] mouth daily. 4 Active neomycin/bacitra negrito/polymyxinB (NEOSPORIN, EDG-RUQ-DHSOP, TP) Apply 1 Application topically 2 (two) [...] 20 MG tabletIndication s:Coronary artery disease involving little shell tribe heart without angina pectoris, unspecified vessel or [...] an echo, and follow-up with her own welding manager who is at [place]. Acquired hypothyroidism 09/04/2020 Assessment & Plan (12/26/2022 [...] like to little and she is established [place] weight management so I like her to see the web applications programmer there she understands and agrees this plan Assessment & Plan (05/17/2019 12:35 PM EST): She is working out, tracking her caloric intake and sticking to nutrition plan although she is under eating. No clear etiology for her weight gain. Start taking levothyroxine separately from the other medications. Check labs today. Make follow-up with web applications programmer CAD (coronary artery disease) 03/02/2019 Overview (03/02/2019): h/o stent Assessment & Plan (12/26/2022 3:02 PM EDT): No active cp or acute concern -Continue secured entrance monitor -Continue aspirin, atorvastatin, Plavix, and Zetia [...] and chronic pain. Certainly would benefit from BOOK CLEANER services and I have discussed with pt [...] pt can establish with someone new at [facility]. Assessment & Plan (01/21/2021 12:34 PM [...] and gait. She will be going to [facility] physical medicine and rehabilitation in [place] for this. IgG monoclonal gammopathy Assessment & Plan (03/02/2019 12:15 PM EST): Patient denies ever seeing hematology, has never heard this diagnosis and does not think that she has this. As I do not have records it is difficult for me to understand where this came from. I would like to review her [facility] records and if necessary we will [...] appt for Neuro muscular in Dec at [facility] No further pain. F/u as needed Assessment [...] more information about next steps in treatment. Encounters Date Type Department Care Team Description 03/08/2025 Patient Outreach [facility] [address] [place] [address] Cintia Guzmán Hypertension from Last 3 Months Immunizations Immunization Administration Dates Next Due COVID-19 [...] 12/09/2021, 12/09/2021, Additional history exists COVID-19 VACCINE (2024- season) 2024 02/06/2023, 12/31/2021, 08/03/2021, Additional history [...] this topic Medical Devices Implanted Type Area Bilingual Hr Generalist Device Identifier Shelf Expiration Date Model / Serial / Lot Stent Supera 6fr 5.5mm 120mm 120cm .014in Otw Vascular Peripheral Nitinol Self Expanding Closed End Braided - [id number] Implanted:Qty: 1 on 11/18/2022 by David Mendez MD at [facility] [employer] 04/27/2024 [id number] / / [id number] Cardiac Stent Neck Hardware Procedures Procedure Name Priority Date/Time Associated Diagnosis Comments HM COLONOSCOPY FOR RESULT ENTRY ONLY Routine 11/10/2023 10:14 AM EDT BASIC METABOLIC PANEL (BMP) STAT 05/23/2023 4:12 PM EST TSH WITH REFLEX Routine 01/13/2023 7:58 AM EDT Hyperthyroidism LIPID PANEL Routine 12/25/2022 5:22 AM EDT MAMMOGRAPHY Routine 07/07/2022 from Last 3 Months or Most Recently Relevant to Health Maintenance Results * COLONOSCOPY FOR RESULT ENTRY ONLY (11/10/2023 10:14 AM EDT) Historical Provider HEALTH MAINTENANCE Edited Result - Final * (ABNORMAL) Basic metabolic panel (05/23/2023 4:12 PM EST) SODIUM 137 133 - 146 mmol/L [facility] CHLORIDE 101 96 - 108 mmol/L [facility] POTASSIUM 4.1 3.3 - 5.1 mmol/L [facility] CO2 24 21 - 35 mmol/L [facility] BUN 27(H) 6 - 19 mg/dL [facility] CREATININE 0.50 0.5 - 1.5 mg/dL [facility] GLUCOSE 103(H) 70 - 99 mg/dL [facility] CALCIUM 9.0 8.4 - 10.3 mg/dL [facility] EGFR 103 >59 mL/min/1.7 3m2 [facility] Comment:Estimated glomerular filtration rate calculated using the CKD-EPI refit equation. ANION GAP 16 10 - 20 mmol/L [facility] Blood 05/23/2023 4:12 PM EST 05/23/2023 4:32 PM EST Mely Padron PA-C LAB BLOOD BKR ORDERABLES Fin al Result [facility] [address] [place], [place] [id number] * (ABNORMAL) TSH with reflex (01/13/2023 7:58 AM EDT) TSH 0.03(L) 0.27 - 4.20 uIU/mL [facility] Blood 01/13/2023 7:58 AM EDT 01/13/2023 8:03 AM EDT us Agueda Ann MD LAB BLOOD BKR ORDERABLES Final R esult Performing Organization Address [facility] Co de Phone Number [address] [address] * (ABNORMAL) Lipid panel (12/25/2022 5:22 AM EDT) HDL 46 mg/dL [facility] Comment: Interpretation <40 mg/dL: Low HDL cholesterol (major risk factor for CHD) Greater than or equal to 60 mg/dL: High HDL cholesterol ( negative risk factor for CHD) HDL - cholesterol is affected by a number of factors, e.g. smoking, excerise, hormones, sex and age. CHOLESTEROL 98 0 - 240 mg/dL [facility] TRIGLYCERIDES 86 30 - 160 mg/dL [facility] LDL 35(L) 50 - 129 mg/dL [facility] Comment: LDL levels in terms of risk for coronary heart disease: <100 mg/dL: Optimal 100-129 mg/dL: Near or above optimal 130-159 mg/dL: Borderline high 160-189 mg/dL: High >190 mg/dL: Very High CARDIAC RISK RATIO 2.1(L) 3.3 - 4.4 C [facility] Blood 12/25/2022 5:22 AM EDT 12/25/2022 6:22 AM EDT us Kayley Ribera NP LAB BLOOD BKR ORDERABLE S Final Result Performing Organization Address [facility] Co de Phone Number [address] [address] * HM MAMMOGRAPHY FOR RESULT ENTRY ONLY (07/07/2022) us Agueda Ann MD HEALTH MAINTENANCE Edited Result - Final from Last 3 Months or Most Recently Relevant to Health Maintenance Insurance [place] [facility] [place] B [facility] MEDICARE PART [facility] & B [facility] MEDIC[facility] PART A & B Member Subscriber Plan / Payer ( fective 2017-) Name:Marixa Chan Member ID:[id number] Relation to Subscriber:Self Name:Marixa Chan Subscriber ID:[id number] Payer ID:[id number] Group ID:Not on file Type:Medicare Address: [employer] [address] [place] [id number] [facility] & [facility] [place] [id number] MEDICARE PART A & B [facility] [place] [id number] Advance Directives For more information, please contact: [phone] (9AM - 5PM [facility], Tuesday-Tuesday) Documents on File Type Date Recorded Patient Beam House Inspector Expl anation Healthcare Proxy 11/08/2022 6:36 PM [...] Code Status Confirmed With: Patient Care Teams Landfill Gas Collection System Operator Relationship Specialty Start Date End Date Agueda Ann MD [address] [address] [email or web address] PCP - General Family Medicine 02/01/19 Andie Rossi MD [address] [place] [address] Neurology 03/02/19 West Doll MD [address] [place] [address] [place] [address] Cardiology 03/02/19 Britany Coles MD [address] [place] [address] [email or web address] Orthopedic Surgery 03/02/19 Naun Hoang MD [address] [place] [address] Infectious Diseases 03/02/19 Additional Source Comments The information contained in this document represents components of the legal health record. It is not the complete legal health record.[facility]
--- OUTSIDE RECORDS SUMMARY | 2025-03-13 15:47 | XMS_ITS | Encounter Summary ---
Author Organization [employer] Address [address] [facility] 7t [place] [address] Care Team Providers Care Bricklayer Sewer Name Role Phone Unavailable Primary Care Provider Unavailabl e Encounter Details Date Type Department Care Team (Latest Contact Info) Description 07/09/[address] [facility] CONVERSIONS Dental, Provider, DDS Social History [...]
--- OUTSIDE RECORDS SUMMARY | 2025-03-13 15:48 | XMS_ITS | Encounter Summary ---
Author Organization [facility] Address [address] [place] [address] Phone Care Team Providers Care Property Handler Name Role Phone Agueda Ann MD Primary Care Provider [phone] Andie Rossi MD Unavailable West Doll MD Unavailable Britany Coles MD Unavailable Naun Hoang MD Unavailable + Agueda Ann MD Unavailable Latosha Garcia OT Unavailable [phone] Latosha Garcia OT Unavailable [phone] Mely Bhatti RN Unavailable [email or web address] Encounter Details Date Type Department Care Team (Late st Contact Info) Description 10/04/2019 Ancillary Orders [facility],Outside Imaging [address] [place] [address] System, Provider Not In, PhD Partners [address] [address] Social History Tobacco Use Types Packs/Day Years [...] documented as of this encounter Care Teams Property Handler Relationship Specialty Start Date End Date Agueda Ann MD [address] [address] [email or web address] PCP - General Family Medicine 02/01/19 Andei Rossi MD [address] [place] [address] Neurology 03/02/19 West Doll MD [address] [place] [address] [address] [place] [address] Cardiology 03/02/19 Britany Coles MD [address] [place] [address] Dr [address] [place] [address] Orthopedic Surgery 03/02/19 Naun Hoang MD [address] [place] [address] Infectious Diseases 03/02/19 Agueda Ann MD [address] [address] [email or web address] Insurance Assigned Provider 07/02/23 04/02/24 Latosha Garcia, OT 30 [place] [address] [email or web address] Transitions Precision AgronomistAircraft Maintenance Manager Therapy 11/05/22 11/07/22 Latosha Garcia, OT [address] [place] [address] [email or web address] Transitions Precision AgronomistAircraft Maintenance Manager Therapy 11/24/22 11/25/22 Mely Bhatti, NICOLE [address] [place] [address] [email or web address] Precision Agronomist 05/12/23 06/09/23 documented as of this encounter Additional Source Comments The information contained in this document represents components of the legal health record. It is not the complete legal health record.[facility]
--- OUTSIDE RECORDS SUMMARY | 2025-03-13 15:48 | XMS_ITS | Encounter Summary ---
Author Organization [facility] Address [address] [place] [address] Phone Care Team Providers Care Record Librarian Name Role Phone Agueda Ann MD Primary Care Provider [phone] Andie Rossi MD Unavailable [phone] West Doll MD Unavailable [phone] Britany Coles MD Unavailable [phone] Naun Hoang MD Unavailable + Agueda Ann MD Unavailable Mely Bhatti RN Unavailable [email or web address] Encounter Details Date Type Department Care Team (Late st Contact Info) Description 12/25/2022 Procedure Pass Osman Leming Non-Invasic Cardiology 30 [place] [address] Social History Tobacco Use Types Packs/Day Years [...] documented as of this encounter Care Teams Record Librarian Relationship Specialty Start Date End Date Agueda Ann MD [address] [place] [address] [email or web address] PCP - General Family Medicine 02/01/19 Andie Rossi MD [address] [place] [address] Neurology 03/02/19 West Doll MD [address] [place] [address] Cardiology 03/02/19 Britany Coles MD [address] [place] [address] [email or web address] Orthopedic Surgery 03/02/19 Naun Hoang MD [address] [place] [address] Infectious Diseases 03/02/19 Agueda Ann MD [address] [address] [email or web address] Insurance Assigned Provider 07/02/23 04/02/24 Mely Bhatti RN [address] [address] [email or web address] PHCM Assembler Trim 05/12/23 06/09/23 documented as of this encounter Additional Source Comments The information contained in this document represents components of the legal health record. It is not the complete legal health record.[facility]
== END 2025-03-12 11:52 | disposition home or self-care (01) ==
LOC: HO.MMNH3L 11:51
PROVIDERS: Visit Provider Student in an Organized Health Care Education/Training Program
DX: F01.A0 Vascular dementia, mild, without behavioral disturbance, psychotic disturbance, mood disturbance, and anxiety (principal); N18.31 Chronic kidney disease, stage 3a
CPT/HCPCS: 87493

== ENCOUNTER 2025-03-18 07:22 | Outpatient (REF) | payer MEDICARE, MEDICAID, SELFPAY ==
[2025-03-18 06:31] LABS: MANUAL DIFF FLAG NO
[2025-03-18 06:44] LABS: Hematocrit 29.0 % (37.0-47.0); Hemoglobin 8.7 g/dl (12.0-16.0); Imm Gran Abs Auto 0.04 X10*3/uL (0.00-0.03); Imm Gran Pct Auto 0.4 % (0.0-0.4); Lymphocytes Absolute Auto 2.6 X10*3/uL (1.2-4.9); Mean Corpuscular HGB Conc 30.0 g/dl (31.0-35.0); Mean Corpuscular Hemoglobin 26.1 pg (27.0-33.0); Mean Corpuscular Volume 87.1 fL (80.0-98.0); NRBC Abs Auto 0.000 X10*3/uL (0.0-0.012); NRBC Pct Auto 0.0 /100WBC (0.0-0.2); Platelet Count 296 X10*3/uL (160-400); Red Blood Count 3.33 X10*6/uL (4.20-5.50); White Blood Count 9.2 X10*3/uL (4.8-10.8)
[2025-03-18 07:09] LABS: Anion Gap 14 (12-20); Blood Urea Nitrogen 47 mg/dL (9-16); Calcium 8.4 mg/dL (8.4-10.2); Carbon Dioxide 22 mmol/L (22-29); Chloride 109 mmol/L (96-108); Estimated Glomerular Filt Rate 39; Potassium 4.8 mmol/L (3.3-5.1); Sodium 140 mmol/L (135-145)
--- OUTSIDE RECORDS SUMMARY | 2025-03-18 07:30 | XMS_ITS | Encounter Summary ---
Author Organization [facility] Address [address] [place] [address] Phone Care Team Providers Care Smooth And Burr Worker Composites Name Role Phone Agueda Ann MD Primary Care Provider [phone] Andie Rossi MD Unavailable West Doll MD Unavailable Britany Coles MD Unavailable [phone] Naun Hoang MD Unavailable + Agueda Ann MD Unavailable Latosha Garcia OT Unavailable [phone] Latosha Garcia OT Unavailable [phone] Mely Bhatti RN Unavailable [email or web address] Encounter Details Date Type Department Care Team (Late st Contact Info) Description 10/04/2019 Ancillary Orders [facility],Outside Imaging 30 [place] [address] System, Provider Not In, PhD Partners [address] [address] Social History Tobacco Use Types Packs/Day Years [...] documented as of this encounter Care Teams Smooth And Burr Worker Composites Relationship Specialty Start Date End Date Agueda Ann MD [address] [address] [email or web address] PCP - General Family Medicine 02/01/19 Andie Rossi MD [address] [place] [address] Neurology 03/02/19 West Doll MD [address] [place] [address] Dr [address] [place] [address] Cardiology 03/02/19 Britany Coles MD [address] [place] [address] Dr [address] [place] [address] Orthopedic Surgery 03/02/19 Naun Hoang MD [address] [place] [address] Infectious Diseases 03/02/19 Agueda Ann MD [address] [address] [email or web address] Insurance Assigned Provider 07/02/23 04/02/24 Latosha Garcia, OT 30 [place] [address] [email or web address] Transitions Garnett Machine Operator HelperAssisted Living Care Manager Therapy 11/05/22 11/07/22 Latosha Garcia, OT 30 [place] [address] [email or web address] Transitions Garnett Machine Operator HelperAssisted Living Care Manager Therapy 11/24/22 11/25/22 Mely Bhatti, NICOLE 30 [place] [address] [email or web address] Garnett Machine Operator Helper 05/12/23 06/09/23 documented as of this encounter Additional Source Comments The information contained in this document represents components of the legal health record. It is not the complete legal health record.[facility]
--- OUTSIDE RECORDS SUMMARY | 2025-03-18 07:30 | XMS_ITS | Encounter Summary ---
Author Organization [facility] Address [address] [place] [address] Phone Care Team Providers Care Carpet Inspector Finished Name Role Phone Agueda Ann MD Primary Care Provider [phone] Andie Rossi MD Unavailable West Doll MD Unavailable Britany Coles MD Unavailable [phone] Naun Hoang MD Unavailable + Agueda Ann MD Unavailable Latosha Garcia OT Unavailable [phone] Mely Bhatti RN Unavailable [email or web address] Encounter Details Date Type Department Care Team (Late st Contact Info) Description 11/18/2022 Procedure Pass Jacqui Stevenson Cardiovascular And Interventional Radiology 30 [place] [address] Social History Tobacco Use Types Packs/Day Years [...] documented as of this encounter Care Teams Carpet Inspector Finished Relationship Specialty Start Date End Date Agueda Ann MD [address] [place] [address] [email or web address] PCP - General Family Medicine 02/01/19 Andie Rossi MD [address] [place] [address] Neurology 03/02/19 West Doll MD [address] [place] [address] [address] [place] [address] Cardiology 03/02/19 Britany Coles MD [address] [place] [address] [address] [place] [address] [email or web address] 03/02/19 Naun Hoang MD [address] [place] [address] Infectious Diseases 03/02/19 Agueda Ann MD [address] [address] [email or web address] Insurance Assigned Provider 07/02/23 04/02/24 Latosha Garcia, OT 30 [place] [address] [email or web address] Transitions Paint Roller AssemblerMold Capper Helper Therapy 11/24/22 11/25/22 Mely Bhatti, NICOLE 30 [place] [address] [email or web address] PHCM Paint Roller Assembler 05/12/23 06/09/23 documented as of this encounter Additional Source Comments The information contained in this document represents components of the legal health record. It is not the complete legal health record.[facility]
--- OUTSIDE RECORDS SUMMARY | 2025-03-18 07:30 | XMS_ITS | Clinical Summary ---
Author Organization [employer] Address [address] [facility] 7t [place] [address] Care Team Providers Care Industrial Ecologist Name Role Phone Unavailable Primary Care Provider [...] Recently Relevant to Health Maintenance Insurance [facility] MEDICAID STAND ADULT
--- OUTSIDE RECORDS SUMMARY | 2025-03-18 07:30 | XMS_ITS | Encounter Summary ---
Author Organization [facility] Address [address] [place] [address] Phone Care Team Providers Care Solar Energy Advisor Name Role Phone Agueda Ann MD Primary Care Provider [phone] Andie Rossi MD Unavailable West Doll MD Unavailable [phone] Britany Coles MD Unavailable Naun Hoang MD Unavailable + Agueda Ann MD Unavailable Mely Bhatti RN Unavailable [email or web address] Encounter Details Date Type Department Care Team (Late st Contact Info) Description 12/24/2022 Procedure Pass [facility] 30 [place] [address] Social History Tobacco Use Types Packs/Day Years [...] documented as of this encounter Care Teams Solar Energy Advisor Relationship Specialty Start Date End Date Agueda Ann MD [address] [address] [email or web address] PCP - General Family Medicine 02/01/19 Andie Rossi MD [address] [place] [address] Neurology 03/02/19 West Doll MD [address] [place] [address] Cardiology 03/02/19 Britany Coles MD [address] [place] [address] [email or web address] Orthopedic Surgery 03/02/19 Naun Hoang MD [address] [place] [address] Infectious Diseases 03/02/19 Agueda Ann MD [address] [address] [email or web address] Insurance Assigned Provider 07/02/23 04/02/24 Mely Bhatti RN [address] [address] [email or web address] PHCM Snap Shearer 05/12/23 06/09/23 documented as of this encounter Additional Source Comments The information contained in this document represents components of the legal health record. It is not the complete legal health record.[facility]
--- OUTSIDE RECORDS SUMMARY | 2025-03-18 07:30 | XMS_ITS | Encounter Summary ---
Author Organization [employer] Address [address] [facility] 7t [place] [address] Care Team Providers Care Guidance And Control System Engineer Name Role Phone Unavailable Primary Care Provider Unavailabl e Encounter Details Date Type Department Care Team (Latest Contact Info) Description 06/29/2021 Abstract [facility] CONVERSIONS Dental, Provider, DDS Social History Tobacco [...]
--- OUTSIDE RECORDS SUMMARY | 2025-03-18 07:30 | XMS_ITS | Encounter Summary ---
Author Organization [employer] Address [address] [facility] 7t [place] [address] Care Team Providers Care Launderette Attendant Name Role Phone Unavailable Primary Care Provider Unavailabl e Encounter Details Date Type Department Care Team (Latest Contact Info) Description 07/09/2020 Abstract [facility] CONVERSIONS Dental, Provider, DDS Social History Tobacco [...]
--- OUTSIDE RECORDS SUMMARY | 2025-03-18 07:30 | XMS_ITS | Encounter Summary ---
Author Organization [employer] Address [address] [facility] 7t [place] [address] Care Team Providers Care Insulation Board Head Saw Operator Name Role Phone Unavailable Primary Care Provider Unavailabl e Encounter Details Date Type Department Care Team (Latest Contact Info) Description 05/02/2018 Abstract [facility] CONVERSIONS Dental, Provider, DDS Social History Tobacco [...]
--- OUTSIDE RECORDS SUMMARY | 2025-03-18 07:30 | XMS_ITS | Encounter Summary ---
Author Organization [facility] Address [address] [place] [address] Phone Care Team Providers Care Spring Intern Name Role Phone Agueda Ann MD Primary Care Provider [phone] Andie Rossi MD Unavailable [phone] West Doll MD Unavailable [phone] Britany Coles MD Unavailable [phone] Naun Hoang MD Unavailable + Agueda Ann MD Unavailable Mely Bhatti RN Unavailable [email or web address] Encounter Details Date Type Department Care Team (Late st Contact Info) Description 12/25/2022 Procedure Pass Osman [place] Non-Invasic Cardiology 30 [place] [address] Social History Tobacco Use Types Packs/Day Years [...] documented as of this encounter Care Teams Spring Intern Relationship Specialty Start Date End Date Agueda Ann MD [address] [place] [address] [email or web address] PCP - General Family Medicine 02/01/19 Andie Rossi MD [address] [place] [address] Neurology 03/02/19 West Doll MD [address] [place] [address] Cardiology 03/02/19 Britany Coles MD [address] [place] [address] Orthopedic Surgery 03/02/19 Naun Hoang MD [address] [place] [address] Infectious Diseases 03/02/19 Agueda Ann MD [address] [address] [email or web address] Insurance Assigned Provider 07/02/23 04/02/24 Mely Bhatti RN [address] [address] [email or web address] PHCM Gi Technician 05/12/23 06/09/23 documented as of this encounter Additional Source Comments The information contained in this document represents components of the legal health record. It is not the complete legal health record.[facility]
--- OUTSIDE RECORDS SUMMARY | 2025-03-18 07:30 | XMS_ITS | Encounter Summary ---
Author Organization [employer] Address [address] [facility] [address] 7t [place] [address] Care Team Providers Care Lead Esthetician Name Role Phone Unavailable Primary Care Provider Unavailabl e Reason for Visit * Reason Onset Date Comments medical clearance 05/27/2022 Encounter Details Date Type Department Care Team (Late st Contact Info) Description 05/27/2022 Telephone [facility] ADULT [facility]ENTAL [address] [place] [address] Davonte Cunningham DDS medical clearance Social History [...] was for medical clearance. Pls re send [phone] * Telephone Encounter - Lucina Leigh - [...] was for medical clearance. Pls re send [phone] documented in this encounter Plan of Treatment Not on file documented as of this encounter Visit Diagnoses Not on filedocumented in this encounter
--- OUTSIDE RECORDS SUMMARY | 2025-03-18 07:30 | XMS_ITS | Clinical Summary ---
Author Organization [facility] Address [address] [place] [address] Phone Care Team Providers Care Recovery Assistant Name Role Phone Agueda Ann MD Primary Care Provider [phone] Andie Rossi MD Unavailable [phone] West Doll MD Unavailable [phone] Britany Coles MD Unavailable [phone] Naun Hoang MD Unavailable + Allergies No [...] mouth daily. 4 Active neomycin/bacitra negrito/polymyxinB (NEOSPORIN, BMZ-CCL-SMPKB, TP) Apply 1 Application topically 2 (two) [...] 20 MG tabletIndication s:Coronary artery disease involving chippewa-cree heart without angina pectoris, unspecified vessel or [...] an echo, and follow-up with her own boom master who is at [facility]. Acquired hypothyroidism 09/04/2020 Assessment & Plan (12/26/2022 [...] like to little and she is established [place] weight management so I like her to see the college specialist there she understands and agrees this plan Assessment & Plan (05/17/2019 12:35 PM EST): She is working out, tracking her caloric intake and sticking to nutrition plan although she is under eating. No clear etiology for her weight gain. Start taking levothyroxine separately from the other medications. Check labs today. Make follow-up with college specialist CAD (coronary artery disease) 03/02/2019 Overview (03/02/2019): h/o stent Assessment & Plan (12/26/2022 3:02 PM EDT): No active cp or acute concern -Continue compliance monitor -Continue aspirin, atorvastatin, Plavix, and Zetia [...] and chronic pain. Certainly would benefit from GEOTECHNICIAL PROPERTIES TECHNICIAN services and I have discussed with [...] pt can establish with someone new at [facility]. Assessment & Plan (01/21/2021 12:34 PM EDT): [...] and gait. She will be going to [facility] physical medicine and rehabilitation in [place] for this. IgG monoclonal gammopathy Assessment & Plan (03/02/2019 12:15 PM EST): Patient denies ever seeing hematology, has never heard this diagnosis and does not think that she has this. As I do not have records it is difficult for me to understand where this came from. I would like to review her [facility] records and if necessary we will do [...] appt for Neuro muscular [facility] No further pain. F/u as needed Assessment [...] Department Care Team Description 03/08/2025 Patient Outreach [facility] [address] [place] [address] Cintia Guzmán Hypertension from Last 3 Months [...] this topic Medical Devices Implanted Type Area Rn Telehealth Device Identifier Shelf Expiration Date Model / Serial / Lot Stent Supera 6fr 5.5mm 120mm 120cm .014in Otw Vascular Peripheral Nitinol Self Expanding Closed End Braided - [id number] Implanted:Qty: 1 on 11/18/2022 by David Mendez MD at [facility] [employer] 04/27/2024 [id number] / / [id number] Cardiac Stent Neck Hardware Procedures Procedure Name [...] LAB BLOOD BKR ORDERABLES Fin al Result [facility] [address] [place], [place] [id number] * (ABNORMAL) TSH with reflex (01/13/2023 7:58 AM EDT) TSH 0.03(L) 0.27 - 4.20 uIU/mL [facility] Blood 01/13/2023 7:58 AM EDT 01/13/2023 8:03 AM EDT us Agueda Ann MD LAB BLOOD BKR ORDERABLES Final R esult Performing Organization Address [facility] Co de Phone Number [address] [address] * (ABNORMAL) Lipid panel (12/25/2022 5:22 AM [...] RISK RATIO 2.1(L) 3.3 - 4.4 C [facility] Blood 12/25/2022 5:22 AM EDT 12/25/2022 6:22 AM EDT us Kayley Ribera NP LAB BLOOD BKR ORDERABLE S Final Result Performing Organization Address [facility] Co de Phone Number [address] [address] * HM MAMMOGRAPHY FOR RESULT ENTRY ONLY (07/07/2022) us Agueda Ann MD HEALTH MAINTENANCE Edited Result - Final from Last 3 Months or Most Recently Relevant to Health Maintenance Insurance MEDIC[place] PART [place] [facility] [place] & B [facility] MEDICARE PART A & B [facility] MEDICARE PART A & B Member Subscriber Plan / Payer ( fective 2017-) Name:Marixa Chan Member ID:[id number] Relation to Subscriber:Self Name:Marixa Chan Subscriber ID:[id number] Payer ID:[id number] Group ID:Not on file Type:Medicare Address: [employer] [address] [place] [phone] [facility] & [facility] [place]W CISSE [id number] MEDICARE PART A & B [facility] ANDREW CIS[place] [id number] Advance Directives For more information, please contact: [phone] (9AM - 5PM [facility], Tuesday-Tuesday) Documents on File Type Date Recorded Patient Acoustic Engineer Expl anation Healthcare Proxy 11/08/2022 6:36 PM [...] Code Status Confirmed With: Patient Care Teams Recovery Assistant Relationship Specialty Start Date End Date Agueda Ann MD [address] [address] [email or web address] PCP - General Family Medicine 02/01/19 Andie Rossi MD [address] [place] [address] Neurology 03/02/19 West Doll MD [address] [place] [address] [place] [address] Cardiology 03/02/19 Britany Coles MD [address] [place] [address] Orthopedic Surgery 03/02/19 Naun Hoang MD [address] [place] [address] Infectious Diseases 03/02/19 Additional Source Comments The information contained in this document represents components of the legal health record. It is not the complete legal health record.[facility]
--- OUTSIDE RECORDS SUMMARY | 2025-03-18 07:30 | XMS_ITS | Encounter Summary ---
Author Organization [facility] Address [address] [place] [address] Phone Care Team Providers Care Turntable Man Name Role Phone Aguead Ann MD Primary Care Provider [phone] Andie Rossi MD Unavailable [phone] West Doll MD Unavailable [phone] Britany Coles MD Unavailable [phone] Naun Hoang MD Unavailable + Agueda Ann MD Unavailable Mely Bhatti RN Unavailable [email or web address] Encounter Details Date Type Department Care Team (Late st Contact Info) Description 12/25/2022 Procedure Pass [facility] [address] [place] [address] Social History Tobacco Use Types Packs/Day Years [...] high school, GED, job training, learning the Taiwanese language, technical skills, or developing parenting skills)? [...] documented as of this encounter Care Teams Turntable Man Relationship Specialty Start Date End Date Agueda Ann MD [address] [place] [address] [email or web address] PCP - General Family Medicine 02/01/19 Andie Rossi MD [address] [place] [address] Neurology 03/02/19 West Doll MD [address] [place] [address] [place] [address] Cardiology 03/02/19 Britany Coles MD [address] [place] [address] [email or web address] Orthopedic Surgery 03/02/19 Naun Hoang MD [address] [place] [address] Infectious Diseases 03/02/19 Agueda Ann MD [address] [place] [address] [email or web address] Insurance Assigned Provider 07/02/23 04/02/24 Mely Bhatti RN [address] [address] [email or web address] PHCM Elevating Grader Operator 05/12/23 06/09/23 documented as of this encounter Additional Source Comments The information contained in this document represents components of the legal health record. It is not the complete legal health record.[facility]
--- OUTSIDE RECORDS SUMMARY | 2025-03-18 07:30 | XMS_ITS | Encounter Summary ---
Author Organization [facility] Address [address] [place] [address] Phone Care Team Providers Care Plastic Finisher Name Role Phone Agueda Ann MD Primary Care Provider [phone] Andie Rossi MD Unavailable West Doll MD Unavailable Britany Coles MD Unavailable Naun Hoang MD Unavailable + Agueda Ann MD Unavailable Mely Bhatti RN Unavailable [email or web address] Encounter Details Date Type Department Care Team (Late st Contact Info) Description 12/24/2022 Procedure Pass [facility], [facility] [address] [place] [address] Social History Tobacco Use Types Packs/Day Years [...] documented as of this encounter Care Teams Plastic Finisher Relationship Specialty Start Date End Date Agueda Ann MD [address] [address] [email or web address] PCP - General Family Medicine 02/01/19 Andie Rossi MD [address] [place] [address] Neurology 03/02/19 West Doll MD [address] [place] [address] Cardiology 03/02/19 Britany Coles MD [address] [place] [address] Orthopedic Surgery 03/02/19 Naun Hoang MD [address] [place] [address] Infectious Diseases 03/02/19 Agueda Ann MD [address] [address] [email or web address] Insurance Assigned Provider 07/02/23 04/02/24 Mely Bhatti RN [address] [address] [email or web address] PHCM Airport Operations Officer 05/12/23 06/09/23 documented as of this encounter Additional Source Comments The information contained in this document represents components of the legal health record. It is not the complete legal health record.[facility]
--- OUTSIDE RECORDS SUMMARY | 2025-03-18 07:30 | XMS_ITS | Encounter Summary ---
Author Organization [facility] Address [email or web address] [place] [address] Phone Care Team Providers Care Harvest Worker Field Crop Name Role Phone Agueda Ann MD Primary Care Provider [phone] Andie Rossi MD Unavailable West Doll MD Unavailable Britany Coles MD Unavailable [phone] Naun Hoang MD Unavailable + Agueda Ann MD Unavailable Mely Bhatti RN Unavailable [email or web address] Encounter Details Date Type Department Care Team (Late st Contact Info) Description 12/24/2022 Procedure Pass [facility], [facility] [address] [place] [address] Social History Tobacco Use Types Packs/Day Years [...] documented as of this encounter Care Teams Harvest Worker Field Crop Relationship Specialty Start Date End Date Agueda Ann MD [address] [address] [email or web address] PCP - General Family Medicine 02/01/19 Andie Rossi MD [address] [place] [address] Neurology 03/02/19 West Doll MD [address] [place] [address] Cardiology 03/02/19 Britany Coles MD [address] [place] [address] [email or web address] Orthopedic Surgery 03/02/19 Naun Hoang MD [address] [place] [address] Infectious Diseases 03/02/19 Agueda Ann MD [address] [address] [email or web address] Insurance Assigned Provider 07/02/23 04/02/24 Mely Bhatti RN [address] [address] [email or web address] PHCM P[employer] Security Consultant 05/12/23 06/09/23 documented as of this encounter Additional Source Comments The information contained in this document represents components of the legal health record. It is not the complete legal health record.[facility]
--- OUTSIDE RECORDS SUMMARY | 2025-03-18 07:30 | XMS_ITS | Clinical Summary ---
Author Organization [address] Address [address] [place] [id number] Care Team Providers Care State Tested Nursing Assistant Name Role Phone Unavailable Primary Care [...]
--- OUTSIDE RECORDS SUMMARY | 2025-03-18 07:30 | XMS_ITS | Encounter Summary ---
Author Organization [facility] Address [address] [place] [address] Phone Care Team Providers Care Tree And Shrub Technician Name Role Phone Agueda Ann MD Primary Care Provider [phone] Andie Rossi MD Unavailable [phone] West Doll MD Unavailable Britany Coles MD Unavailable Naun Hoang MD Unavailable + Agueda Ann MD Unavailable Latosha Garcia OT Unavailable [phone] Latosha Garcia OT Unavailable [phone] Mely Bhatti RN Unavailable [email or web address] Encounter Details Date Type Department Care Team (Late st Contact Info) Description 11/04/2022 Procedure Pass [facility] 30 [place] [address] Social History Tobacco Use Types Packs/Day Years [...] documented as of this encounter Care Teams Tree And Shrub Technician Relationship Specialty Start Date End Date Agueda Ann MD [address] [place] [address] [email or web address] PCP - General Family Medicine 02/01/19 Andie Rossi MD [address] [place] [address] Neurology 03/02/19 West Doll MD [address] [place] [address] [place] [address] Cardiology 03/02/19 Britany Coles MD [address] [place] [address] [place] [address] [email or web address] [email or web address] Surgery 03/02/19 Naun Hoang MD [address] [place] [address] Infectious Diseases 03/02/19 Agueda Ann MD [address] [address] [email or web address] Insurance Assigned Provider 07/02/23 04/02/24 Latosha Garcia, OT 30 [place] [address] [email or web address] Transitions Aquaculture WorkerProperty Manager Therapy 11/05/22 11/07/22 Latosha Garcia, OT 30 [place] [address] Transitions Aquaculture WorkerProperty Manager Therapy 11/24/22 11/25/22 Mely Bhatti, NICOLE 30 [place] [address] [email or web address] PHCM Aquaculture Worker 05/12/23 06/09/23 documented as of this encounter Additional Source Comments The information contained in this document represents components of the legal health record. It is not the complete legal health record.[facility]
--- OUTSIDE RECORDS SUMMARY | 2025-03-18 07:30 | XMS_ITS | Encounter Summary ---
Author Organization [facility] Address [address] [place] [address] Phone Care Team Providers Care Systems Analyst Developer Name Role Phone Agueda Ann MD Primary Care Provider [phone] Andie Rossi MD Unavailable West Doll MD Unavailable [phone] Britany Coles MD Unavailable Naun Hoang MD Unavailable + Agueda Ann MD Unavailable Latosha Garcia OT Unavailable Latosha Garcia OT Unavailable [phone] Mely Bhatti RN Unavailable [email or web address] Encounter Details Date Type Department Care Team (Late st Contact Info) Description 07/31/2021 Procedure Pass [facility]oscopy Admitting Dept Virtual Department 30 [place] [address] Social History Tobacco Use Types Packs/Day Years [...] high school, GED, job training, learning the Panamanian language, technical skills, or developing parenting skills)? [...] documented as of this encounter Care Teams Systems Analyst Developer Relationship Specialty Start Date End Date Agueda Ann MD [address] [place] [address] PCP - General Family Medicine 02/01/19 Andie Rossi MD [address] [place] [address] Neurology 03/02/19 West Doll MD [address] [place] [address] Cardiology 03/02/19 Britany Coles MD [address] [place] [address] [address] [place] [address] [email or web address] 03/02/19 Naun Hoang MD [address] [address] Infectious Diseases 03/02/19 Agueda Ann MD [address] [address] [email or web address] Insurance Assigned Provider 07/02/23 04/02/24 Latosha Garcia, OT 30 [place] [address] [email or web address] Transitions Architectural InternHvac Installation Technician Therapy 11/05/22 11/07/22 Latosha Garcia, OT 30 [place] [address] [email or web address] Transitions Architectural InternHvac Installation Technician Therapy 11/24/22 11/25/22 Mely Bhatti, NICOLE 30 [place] [address] [email or web address] Architectural Intern 05/12/23 06/09/23 documented as of this encounter Additional Source Comments The information contained in this document represents components of the legal health record. It is not the complete legal health record.[facility]
--- OUTSIDE RECORDS SUMMARY | 2025-03-18 07:30 | XMS_ITS | Encounter Summary ---
Author Organization [facility] Address [address] [place] [address] Phone Care Team Providers Care Mold Finisher Name Role Phone Agueda Ann MD Primary Care Provider [phone] Andie Rossi MD Unavailable [phone] West Doll MD Unavailable Britany Coles MD Unavailable [phone] Naun Hoang MD Unavailable + Agueda Ann MD Unavailable Mely Bhatti RN Unavailable [email or web address] Encounter Details Date Type Department Care Team (Late st Contact Info) Description 12/24/2022 Procedure Pass [facility], [facility] [address] [place] [address] Social History Tobacco Use Types Packs/Day Years [...] documented as of this encounter Care Teams Mold Finisher Relationship Specialty Start Date End Date Agueda Ann MD [address] [address] [email or web address] PCP - General Family Medicine 02/01/19 Andie Rossi MD [address] [place] [address] Neurology 03/02/19 West Doll MD [address] [place] [address] Cardiology 03/02/19 Britany Coles MD [address] [place] [address] Orthopedic Surgery 03/02/19 Naun Hoang MD [address] [place] [address] Infectious Diseases 03/02/19 Agueda Ann MD [address] [address] [email or web address] Insurance Assigned Provider 07/02/23 04/02/24 Mely Bhatti RN [address] [address] [email or web address] PHCM Sorting Cows Worker 05/12/23 06/09/23 documented as of this encounter Additional Source Comments The information contained in this document represents components of the legal health record. It is not the complete legal health record.[facility]
--- OUTSIDE RECORDS SUMMARY | 2025-03-18 07:30 | XMS_ITS | Data Portability ---
Author Organization [facility], Main Office Address [address] [address] [address] [place] [address] Care Team Providers Care Pocket Builder Name Role Phone VINI DOWLING 1ST FLOOR [...] Address Organization Details Recorded Time Diabetes mellitus 88879053 Active 2023 MIRI NORTON [address], [address], [place], [address], [facility] 4 20:18:04 Essential hypertensio n 79320295 Active 2023 MIRI NORTON [address], [address], [place], [address], [facility] 4 20:18:10 Hyperlipide reinier 70149792 Active 2023 MIRI NORTON [address] [place] [address], [address], [place], [address], [facility] 4 20:18:16 Femoral-pop liteal artery bypass graft Completed 202309/01/2023 MIRI NORTON [address] [place] [address], [address], [place], [address], [facility] 4 22:16:23 Anemia 082027044 Active 2023 MIRI NORTON [address] [place] [address], [address], [place], [address], [facility] 4 20:20:45 Cerebrovasc ular accident 041583876 Active 2023 MIRI NORTON [address] [place] [address], [address], [place], [address], [facility] 4 20:21:06 Femoro-ante rior tibial bypass graft Completed 202309/01/2023 MIRI NORTON [address] [place] [address], [address], [place], [address], [facility] 4 22:16:23 Chronic kidney disease stage 3 649153198 Active 2023 MIRI NORTON [address] [place] [address], [address], [place], [address], [facility] 4 20:28:49 Peripheral vascular disease 210845997 Active 2023 MIRI NORTON [address] [place] [address], [address], [place], [address], [place] [facility] 20:29:56 Asthenia 81834861 Active 2023 PÉREZ LUNDBERG, MIRI [address], [address], [place], [address], [facility] 20:30:45 Insomnia 306104825 Active 2023 PÉREZ LUNDBERG, MIRI [address], [address], [place], [address], [facility] 4 21:49:49 Constipatio n 79846223 Active 2023 MIRI NORTON [address], [address], [place], [address], [facility] 4 21:52:14 Acute kidney injury 75679981 Active 2023 MIRI NORTON [address], [address], [place], [address], [facility] 4 21:56:55 Hypocalcemi a 3328640 Completed 202309/01/2023 MIRI NORTON [address], [address], [place], [address], [facility] 4 22:16:23 Myasthenia gravis 83528500 Active 2023 MIRI NORTON [address], [address], [place], [address], [facility] 4 22:10:42 Aphasia 43611738 Completed 202309/01/2023 MIRI NORTON [address], [address], [place], [address], [facility] 4 22:16:23 Vascular dementia 300498302 Active 2023 MIRI NORTON [address], [address], [place], [address], [facility] 4 13:06:33 Amputated below knee 175507958 Active 2023 [address]IRI NORTON [address], [address], [place], [address], [facility] 4 16:38:11 Delirium 2278312 Active [address]ORTON [address], [address], [place], [address], [facility] 4 16:54:43 Dysphagia 09417652 Active [address], [address], [place], [address], [facility] 4 16:55:09 Toxic encephalopa thy 75452705 Active 2023 JOHN NORTONP [address], [address], [place], [address], [facility] 4 16:55:43 Hypothyroid ism 07264816 Active 2023 JOHN NORTONP [address], [address], [place], [address], [facility] 4 22:18:37 Anxiety 56744751 Active 2023 PÉREZ LUNDBERG [facility] [address], [address], [place], [address], [facility] 4 22:24:04 Carotid artery stenosis 25740205 Active 2023 MIRI NORTON [address], [address], [place], [address], [facility] 4 12:10:00 Problem Notes None [...] 97 % 118/68 mm[Hg] MIRI NORTON [address], [address], [place], [address], [facility] 4 14:16:49 Date Recorded Body height Heart rate Respiratory rate Body temperature Oxygen saturation Systolic And Diastolic Provider Name and Address Organization Details Last Updated DateTime 4 165.1 cm 73 /min 18 /min 98 [degF] 94 % 111/76 mm[Hg] MIRI NORTON [address], [address], [place], [address], [facility] 4 11:35:13 Date Recorded Body height Respiratory rate Body temperature Oxygen saturation Heart rate Systolic And Diastolic Provider Name and Address Organization Details Last Updated DateTime 4 165.1 cm 18 /min 98 [degF] 94 % 68 /min 118/71 mm[Hg] MIRI NORTON [address], [address], [place], [address], [facility] 4 16:01:39 Date Recorded Body height Body mass index (BMI) Body weight Heart rate Respiratory rate Body temperature Oxygen saturation Systolic And Diastolic Provider Name and Address Organization Details Last Updated DateTime 4 165.1 cm 28.6 kg/m2 73531.8 9 g 73 /min 16 /min 98.4 [degF] 100 % 135/68 mm[Hg] MIRI NORTON [address], [address], [place], [address], [facility] 4 15:14:16 Social History Question Answer Notes LastModified by Organizat ion Details LastModified Time Tobacco Smoking Status Never Smoker MIRI NORTON [address], [address], [place], [address], [facility] 06/30/2023 02:31:25 Do You Have An [...] Do You Have A Medical Power Of Roving Department End Finder? Yes Information not available 07/22/2023 What Was [...] Tdap 9 completed Elle islas [place] - [facility] 07/01/2023 13:25:18 Tdap 8 completed Elle South null, [facility] [address] 07/01/2023 13:25:33 Pneumococcal conjugate PCV20, polysaccharide [id number] conjugate, adjuvant, PF 2 completed Elle South null, [facility] [address] 07/01/2023 13:25:55 pneumococcal polysaccharide PPV23 4 completed Elle Brannon null, [facility] [address] 07/01/2023 13:26:09 pneumococcal polysaccharide PPV23 7 completed Elle Brannon null, [facility] [address] 07/01/2023 13:26:18 influenza, unspecified formulation 2 completed Elle Brannon null, [facility] [address] 07/01/2023 13:26:47 influenza, unspecified formulation 3 completed Elle Brannon null, [facility] [address] 07/01/2023 13:26:55 SARS-COV-2 (COVID-19) vaccine, UNSPECIFIED 1 completed Elle Brannon null, [facility] [address] 07/01/2023 13:27:17 SARS-COV-2 (COVID-19) vaccine, UNSPECIFIED 1 completed Elle Brannon null, [facility] [address] 07/01/2023 13:27:40 SARS-COV-2 (COVID-19) vaccine, UNSPECIFIED 1 completed Elle Brannon null, [facility] [address] 07/01/2023 13:27:55 SARS-COV-2 (COVID-19) vaccine, UNSPECIFIED 2 completed Elle Brannon null, [facility] [address] 07/01/2023 13:28:04 SARS-COV-2 (COVID-19) vaccine, UNSPECIFIED 2 completed Elle Brannon null, [facility] [address] 07/01/2023 13:28:24 SARS-COV-2 (COVID-19) vaccine, UNSPECIFIED 3 completed Elle Brannon null, [facility] [address] 07/01/2023 13:28:37 zoster, unspecified formulation 9 completed Elle Brannon null, [facility] [address] 07/01/2023 13:29:06 zoster, unspecified formulation 9 completed Elle South [facility] [address] 07/01/2023 13:29:21 Past Encounters Encounter ID Performer Location Encounter Start Date Encounter Closed Date Diagnosis/Indication Diagnosis SNOMED-CT Code Diagnosis ICD10 Code Diagnosis IMO Codes Diagnosis Note [id number] MIRI NORTON [address] [facility] [place] [address] 06/29/2023 15:34:40 07/22/2023 14:35:38 Peripheral vascular disease 560069483 I73.9 s/p right femoral endarterec bridget with [...] rightfollo w up with vascular 06/29 Asthenia 46827803 R53.1 hx of myasthenia gravisPT/O T eval and treat Diabetes mellitus 502056 09 E11.9 A1c 5.7 on 06/23hospit al records indicate that she states she is taking for constipati on, she is not sure she is a diabetic.c ontinue metformin 500 mg BIDcontinu e to monitor FSfollow-u p with PCP after discharge for further management Essential hypertension 39844824 I10 continue lisinopril 5 mg dailyconti nue metoprolol 50 mg bidfurosem oxana 40 mg dailymonit or BP /labs Hyperlipidemia 61879211 E78.5 atorvastat in 40 mg dailymonit or lipids prn Insomnia 501422473 G47.0 0 continue melatonin 9 mg hscontinue trazadone 12.5 mg hs prn Constipation 00316077 K5 9.00 continue colace 100 mg bidcontinu e miralax 17 gm dailyincre ase oral hydration Anemia 126319232 D64.9 continue ferrous sulfate 325 mg dailymonit or CBCH&H stable at 7.9/25.1 Hypocalcemia 7905361 E83 .51 continue calcium carbonate 500 mg dailyconti nue cholecalci ferol 1000 u daily Myasthenia gravis 740149 04 G70.00 carrying dxmaintain safety/pre cautionsno t on medication Cerebrovas cular accident 417706533 I63.9 carrying dx Chronic ki dney disease stage 3 432811717 N18.30 mahi resolved in acute careavoid nephrotoxi c medication smonitor labs [id number] [facility] [address] [place] [address] 06/30/2023 11:39:21 07/04/2023 14:42:16 Bleeding from nose 201207795 R04.0 uncontroll ed bleeding from right narespt is on multiple anticoag( asa, eliquis and plavix) held this morning.wi ll send to ED for eval and tx. [id number] [facility] [address] [place] [address] 07/12/2023 11:03:46 07/19/2023 11:10:58 Open wound of right foot 4812206222 0607468 S91.301A dorsal right foot with wound vacDo Not remove wound vac, she has appt with vascular on 07/13 Surgical i ncision wound of skin 7273938611 00 R23.8 right lateral mid thigh with 22 nehemias right low leg corral 12 staple right lower extremity medial thigh wound with packing Peripheral vascular disease 929633348 I73.9 s/p right femoral endarterec bridget with [...] rightfollo w up with vascular 06/29 Asthenia 01460625 R53.1 hx of myasthenia gravisPT/O T eval and treat Diabetes mellitus 673026 09 E11.9 A1c 5.7 on 06/23hospit al records indicate that she states she is taking for constipati on, she is not sure she is a diabetic.c ontinue metformin 500 mg BIDcontinu e to monitor FSfollow-u p with PCP after discharge for further management Essential hypertension 15825558 I10 continue lisinopril 5 mg dailyconti nue metoprolol 50 mg bidfurosem oxana 40 mg dailymonit or BP /labs Hyperlipidemia 88691092 E78.5 atorvastat in 40 mg dailymonit or lipids prn Insomnia 728516287 G47.0 0 continue melatonin 9 mg hscontinue trazadone 12.5 mg hs prn Constipation 73447005 K5 9.00 continue colace 100 mg bidcontinu e miralax 17 gm dailyincre ase oral hydration Anemia 310299281 D64.9 baseline 7.9-8decre ased to 7.0 due to epistaxiss he was transfused 2 PRBCsconti nue ferrous sulfate 325 mg dailymonit or CBC Hypocalcemia 2123484 E83 .51 continue calcium carbonate 500 mg dailyconti nue cholecalci ferol 1000 u daily Myasthenia gravis 661277 04 G70.00 carrying dxmaintain safety/pre cautionsno t on medication Cerebrovas cular accident 472355844 I63.9 carrying dx Chronic ki dney disease stage 3 636190592 N18.30 mahi resolved in acute careavoid nephrotoxi c medication smonitor labs Aphasia 32937144 R47.01 hx of CVAIntermi ttent aphasia/Wo rd finding difficulty no new stroke seen on brain MRI.Suspec t vascular dementia, may have some hypoperfus ion given her anemia. [id number] MIRI NORTON [address] [place] [address] rd [place] [address] 07/18/2023 10:15:58 07/22/2023 15:25:22 Open wound of right foot 5597866098 4156021 S91.301A s/p wound debridemen t 07/13, will be returning to vascular 07/19 for integra placement and wound vac Surgical i ncision wound of skin 9464775138 00 R23.8 right lateral mid thigh with 22 staplesrig ht low leg corral 12 staplerigh t lower extremity medial thigh wound with packingnur sing to removed on 07/18 ord placed in [facility] Peripheral vascular disease 904599281 I73.9 s/p right femoral endarterec bridget with [...] 6 prncontinu e lidocaine patch right Asthenia 00096024 R53.1 hx of myasthenia gravisPT/O T eval and treat Diabetes mellitus 820557 09 E11.9 A1c 5.7 on 06/23hospit al records indicate that she states she is taking for constipati on, she is not sure she is a diabetic.c ontinue metformin 500 mg BIDcontinu e to monitor FSfollow-u p with PCP after discharge for further management Essential hypertension 19674979 I10 continue lisinopril 5 mg dailyconti nue metoprolol 50 mg bidfurosem oxana 40 mg dailymonit or BP /labs Constipation 72934892 K5 9.00 continue colace 100 mg bidcontinu e miralax 17 gm dailyincre ase oral hydration Anemia 723296411 D64.9 baseline 7.9-8decre ased to 7.0 due to epistaxiss he was transfused 2 PRBCsconti nue ferrous sulfate 325 mg dailymonit or CBC Aphasia 94994740 R47.01 hx of CVAIntermi ttent aphasia/Wo rd finding difficulty no new stroke seen on brain MRI.Suspec t vascular dementia, may have some hypoperfus ion given her anemia. [id number] Afia Tierney MD [address] [place] [address] 07/22/2023 14:24:36 08/15/2023 12:08:31 Open wound of right foot 5361021121 1858915 S91.301A Continue wound care as ordered.F/ U with surgeon as planned for further debridemen t and wound vac placement. Surgical i ncision wound of skin 5485449950 00 R23.8 Wounds healing well.Stale s removed. Peripheral vascular disease 569082453 I73.9 s/p right femoral endarterec bridget with [...] mg q 6 hrs prnMonitor sxs. Asthenia 46841367 R53.1 As above. Diabetes mellitus 379865 09 E11.9 HgA1C was 5.7 on 06/23All sugars <200 since here, so fingerstic ks d/c'd on 07/18Contin ue metformin 500 mg BIDMonitor fingerstic ks prn. Essential hypertension 24831642 I10 BP in good control on lisinopril 5 mg qd, metoprolol 50 mg BID, and furosemide 40 mg qdMonitor BP and labs. Constipation 00753796 K5 9.09 Continue bowel meds as ordered.Mo nitor bowel function. Anemia 049411198 D64.89 Multifacto rial.Galindo nue ferrous sulfate 325 mg qdMonitor CBC Aphasia 19127642 R47.01 As above. Hyperlipidemia 83637443 E78.49 Continue atorvastat in 40 mg qdMonitor lipids yearly Insomnia 014134990 G47.0 0 Continue melatonin 9 mg qhs and trazadone 12.5 mg qhs prnMonitor sleep patterns. Hypocalcemia 5456892 E83 .51 Doesn't have hypocalcem ia.Correct ed Ca+ os 9.08Likely is on Ca+ and vit D for osteopenia .Continue calcium carbonate 500 mg qd and cholecalci ferol 1000 IU qd. Myasthenia gravis 846726 04 G70.00 Carrying dxOn no meds at this time.Very deconditio kelsy.Needs PT/OT for strengthen ing, balance, gait training, safety and function.C ontinue fall precaution s.Monitor for safety. Cerebrovas cular accident 199374386 I63.89 With mod to severe aphasia.SL P eval and tx.Continu e meds as above.Prakash cat for new neuro sxs. Chronic ki dney disease stage 3 755542409 N18.32 At baseline.C ontinue to avoid nephrotoxi c meds as able.Monit or labs.Renal consult prn. Anxiety 38138934 F41.1 Very anxious tonight. Anxiety makes it even harder for her to get her words out.Will start lorazepam 0.5 mg q 6 hrs prn [id number] MIRI NORTON [address] [place] [address] [place] [address] 07/25/2023 12:45:25 07/26/2023 15:42:48 Open wound of right foot 9733128280 5221238 S91.301A 07/19: s/p wound debridemen tcontinue wound treatment as ordered.fo llow up with [facility] on 08/01 at 130 pm Surgical i ncision wound of skin 3457164434 00 R23.8 right lateral mid thigh - HEALING NEHEMIAS REMOVED IN ACUTE CAREright low leg corral healingrig ht lower extremity medial thigh wound with packing Peripheral vascular disease 654137773 I73.9 s/p right femoral endarterec bridget with [...] 6 prncontinu e lidocaine patch right Asthenia 95328641 R53.1 hx of myasthenia gravisPT/O T eval and treat Diabetes mellitus 866478 09 E11.9 continue metformin 500 mg BIDcontinu e to monitor FSfollow-u p with PCP after discharge for further management Essential hypertension 26755388 I10 continue lisinopril 5 mg dailyconti nue metoprolol 50 mg bidfurosem oxana 40 mg dailymonit or BP /labs Constipation 29041977 K5 9.00 continue colace 100 mg bidschedul ed miralax 17 gm daily and senna 8.6 mg daily.incr ease oral hydration Anemia 094234494 D64.9 see hpitoday 6.7 -will recheck on 07/25contin ue ferrous sulfate 325 mg dailycolor is normal, there is no SOB, extremitie s are warm.monit or CBC [id number] MIRI NORTON [address] [address] 07/29/2023 09:49:56 08/02/2023 10:28:17 Open wound of right foot 4951750198 3054451 S91.301A 07/19: s/p wound debridemen tcontinue wound treatment as ordered.fo llow up with [facility] on 08/01 at 130 pm Peripheral vascular disease 911837293 I73.9 s/p right femoral endarterec bridget with [...] prncontinu e lidocaine patch right Diabetes mellitus 165373 09 E11.9 continue metformin 500 mg BIDcontinu e to monitor FSfollow-u p with PCP after discharge for further management Essential hypertension 04307671 I10 continue lisinopril 5 mg dailyconti nue metoprolol 50 mg bidfurosem oxana 40 mg dailymonit or BP /labs Anemia 545244077 D64.9 see hpicontinu e ferrous sulfate 325 mg dailycolor is normal, there is no SOB, extremitie s are warm.monit or CBC [id number] MIRI NORTON [address] [address] 08/05/2023 09:45:20 08/09/2023 11:18:14 Open wound of right foot 0736801457 1313871 S91.301A 07/19: s/p wound debridemen tcontinue wound treatment as ordered.fo llow up with [facility] on 08/02 with new wound care orders-[facility] care for R foot: Apply saline moistened Promogran over Puraply three times weekly. Peripheral vascular disease 444676863 I73.9 s/p right femoral endarterec bridget with [...] prncontinu e lidocaine patch right Diabetes mellitus 432807 09 E11.9 continue metformin 500 mg BIDcontinu e to monitor FSfollow-u p with PCP after discharge for further management Essential hypertension 30374036 I10 continue lisinopril 5 mg dailyconti nue metoprolol 50 mg bidfurosem oxana 40 mg dailymonit or BP /labs Anemia 845454095 D64.9 see hpicontinu e ferrous sulfate 325 mg dailycolor is normal, there is no SOB, extremitie s are warm.monit or CBC [id number] MIRI NORTON JOSEY [address] [place] [address] 08/09/2023 08:23:37 08/12/2023 11:43:31 Open wound of right foot 5857599658 9286040 S91.301A 07/19: s/p wound debridemen tcontinue wound treatment as ordered.fo llow up with [facility] on 08/02 with new wound care orders-[facility] care for R foot: Apply saline moistened Promogran over Puraply three times weekly.fol low up appt 08/09 [facility] with vascular. Peripheral vascular disease 887082695 I73.9 s/p right femoral endarterec bridget with [...] prncontinu e lidocaine patch right Diabetes mellitus 132531 09 E11.9 continue metformin 500 mg BIDcontinu e to monitor FS Essential hypertension 37879044 I10 continue lisinopril 5 mg dailyconti nue metoprolol 50 mg bidfurosem oxana 40 mg dailymonit or BP /labs Anemia 109966703 D64.9 H/H has been stable.con tinue ferrous sulfate 325 mg dailycolor is normal, there is no SOB, extremitie s are warm.monit or CBC [id number] MIRI NORTON [address] [place] [address] [place] [address] 08/15/2023 13:44:19 08/18/2023 13:20:18 Open wound of right foot 5610879821 3887703 S91.301A 07/19: s/p wound debridemen tcontinue wound treatment as ordered.fo llow up with [facility] on 08/02 with new wound care orders-[facility] care for R foot: Apply saline moistened Promogran over Puraply three times weekly.07/26 5 :s/p right foot debridemen t, applicatio n of skin substitute graftfollo w up appt 08/15 at [facility] with vascular. Peripheral vascular disease 444623609 I73.9 s/p right femoral endarterec bridget with [...] prncontinu e lidocaine patch right Diabetes mellitus 950833 09 E11.9 continue metformin 500 mg BIDcontinu e to monitor FS Essential hypertension 43743299 I10 continue lisinopril 5 mg dailyconti nue metoprolol 50 mg bidfurosem oxana 40 mg dailymonit or BP /labs Anemia 318197422 D64.9 H/H 6.6/21.2- will repeat labsconsid er adding ascorbic acid dailyconti nue ferrous sulfate 325 mg dailycolor is normal, there is no SOB, extremitie s are warm.monit or CBC [id number] MIRI NORTON [address] [place] [address] 08/16/2023 08:21:08 08/18/2023 15:50:07 Open wound of right foot 4034700316 7101629 S91.301A see HPI with new finding today,07/19 : s/p wound debridemen :s/p right foot debridemen t, applicatio n of skin substitute graft08/10: tuesday morning sent back to [facility] for excessive wound bleeding thru dressings- transfused 1 unit of packed red blood cells.08/11 : returned from [facility].: abnormal H/H 6.319.9 Peripheral vascular disease 472517942 I73.9 s/p right femoral endarterec bridget with [...] 6 prncontinu e lidocaine patch right Anemia 995656850 D64.9 H/H 6.19.9co ntinue ferrous sulfate 325 mg dailycolor is pale there is no SOB, extremitie s are warm, right foot cold. [id number] MIRI NORTON [address] [place] [address] 08/29/2023 12:13:56 09/05/2023 15:08:58 Amputated below knee 315268982 Z89.519 Critical limb ischemia of right lower extremity now s/p right below knee amputation .continue oxycodone 5 mg q 6 prnfollow up with vascular on 09/01/23 Peripheral vascular disease 368299789 I73.9 s/p below knee amputation continue asa, plavix and eliquiscon tinue oxycodonec ontinue lyrica 150 mg qd and 200 mg at HS Delirium 9479873 R41.0 resolved in acute careof note she is at baseline status, she is alert and oriented. Dysphagia 53538363 R13.1 0 resolvedsh e was seen by speech in acute acute care, continue reg diet with thin liquids Toxic encephalopathy 283 24913 G92.9 resolved in acute careammoni a level 20 on 08/24 Diabetes mellitus 451331 09 E11.9 continue metformin 500 mg BIDcontinu e to monitor FS Essential hypertension 67000571 I10 continue lisinopril 5 mg dailyconti nue metoprolol 50 mg bidfurosem oxana 40 mg dailymonit or BP /labs Hypothyroidism 75006604 E03.9 continue levothyrox ine 200 mcgtsh 8- recheck labs in 6-8 weeks Hyperlipidemia 11053765 E78.49 atorvastat in 40 mg dailymonit or lipids prn Anemia 486482524 D64.9 continue ferrous sulfate 325 mg dailycont. Vit D 1000u daily Constipation 31543764 K5 9.09 continue colace 100 mg bidschedul ed miralax 17 gm daily and senna 8.6 mg daily.incr ease oral hydration Anxiety 68826970 F41.9 continue ativan 0.5 mg q6 prnpsych eval and tx- she had recent amputation , I think she will benefit from speaking with psych, she will need support coping with limp loss. [id number] MIRI NORTON VINI DOWLING [address] [place] [address] [place] [address] 08/31/2023 10:12:07 09/05/2023 16:19:16 Cough 69983840 R05.9 08/29: non productive congested cough- is not interrupti ng with sleepchest xay showed no active infiltrate s or changes ofpulmonar y venous congestion or evidence of a pleural effusion.w ill start mucinex 600 mg q12 for 7 days and re eval. Amputated below knee 299 948987 Z89.519 Critical limb ischemia of right lower extremity now s/p right below knee amputation .continue oxycodone 5 mg q 6 prnfollow up with vascular on 09/01/23PT/O T eval and treatment for conditioni ng and strengthen ing. Peripheral vascular disease 517125896 I73.9 s/p below knee amputation continue asa, plavix and eliquiscon tinue oxycodonec ontinue lyrica 150 mg qd and 200 mg at HS Essential hypertension 80394467 I10 continue lisinopril 5 mg dailyconti nue metoprolol 50 mg bidfurosem oxana 40 mg dailymonit or BP /labs Hypothyroidism 64360773 E03.9 continue levothyrox ine 200 mcgtsh 8- recheck labs in 6-8 weeks Anxiety 57616952 F41.9 continue ativan 0.5 mg q6 prnpsych eval and tx- she had recent amputation , I think she will benefit from speaking with psych, she will need support coping with limp loss.mood is stable today. [id number] MIRI NORTON JOSEY [address] [place] [phone] 5 09/05/2023 08:59:26 09/08/2023 16:20:28 Cough 34829552 R05.9 resolved Amputated below knee 299 330488 Z89.519 right below knee amputation .continue oxycodone 5 mg q 6 prncontinu e PT/OT eval and treatment for conditioni ng and strengthen ing.contin ue wound care Betadine, dry gauze, the stump change management facilitator and the amputation shield. Peripheral vascular disease 329184574 I73.9 s/p below knee amputation continue asa, plavix and eliquiscon tinue oxycodonec ontinue lyrica 150 mg qd and 200 mg at HS Essential hypertension 99060898 I10 continue lisinopril 5 mg dailyconti nue metoprolol 50 mg bidfurosem oxana 40 mg dailymonit or BP /labs Hypothyroidism 18754251 E03.9 continue levothyrox ine 200 mcgtsh 8- recheck labs in 6-8 weeks Anxiety 82710556 F41.9 continue ativan 0.5 mg q6 prnshe was seen by bilingual school psychologist who is recommendi ng starting duloxetine , benfits discuused ,patient will like to think about it. Carotid ar dahlia stenosis 47090917 I65.29 stent placement in june. Amanda would like her on aspirin and plavix for 3 months post op, then can resume aspirin and eliquis.Sh e will need a carotid duplex later on this summer to recheck the right carotid, determine whether to reinterven e on the stent. [id number] MIRI NORTON JOSEY [address] [place] [address] DIPIKAMARINEANDREW [address] 5 09/07/2023 11:22:32 09/09/2023 08:57:56 Amputated below knee 440324538 Z89.519 right below knee amputation .continue oxycodone 5 mg q 6 prncontinu e PT/OT eval and treatment for conditioni ng and strengthen ing.contin ue wound care Betadine, dry gauze, the stump change management facilitator and the amputation shield. Peripheral vascular disease 636079474 I73.9 s/p below knee amputation continue asa, plavix and eliquiscon tinue oxycodonec ontinue lyrica 150 mg qd and 200 mg at HS Essential hypertension 67869560 I10 continue lisinopril 5 mg dailyconti nue metoprolol 50 mg bidfurosem oxana 40 mg dailymonit or BP /labs Hypothyroidism 03651837 E03.9 continue levothyrox ine 200 mcgtsh 8- recheck labs in 6-8 weeks Anxiety 49664056 F41.9 continue ativan 0.5 mg q6 prnshe was seen by bilingual school psychologist who is recommendi ng starting duloxetine , benfits discuused ,patient will like to think about it. Carotid ar dahlia stenosis 68487632 I65.29 stent placement in june. Amanda would like her on aspirin and plavix for 3 months post op, then can resume aspirin and eliquis.Sh e will need a carotid duplex later on this summer to recheck the right carotid, determine whether to reinterven e on the stent. [id number] MIRI NORTON [facility] JOSEY [address] [place] [phone] 5 09/12/2023 11:21:52 09/14/2023 16:46:41 Amputated below knee 521269864 Z89.519 right below knee amputation .continue oxycodone 5 mg q 6 prncontinu e PT/OT eval and treatment for conditioni ng and strengthen ing.contin ue wound care Betadine, dry gauze, the stump change management facilitator and the amputation shield. Peripheral vascular disease 253971473 I73.9 s/p below knee amputation continue asa, plavix and eliquiscon tinue oxycodone Q 6continue lyrica 150 mg qd and 200 mg at HS Essential hypertension 11894514 I10 continue lisinopril 5 mg dailyconti nue metoprolol 50 mg bidfurosem oxana 40 mg dailymonit or BP /labs Hypothyroidism 65116827 E03.9 continue levothyrox ine 200 mcgtsh 8- recheck labs in 6-8 weeks Constipation 48368840 K5 9.09 she reports that she has [...] evening, will order imaging.in crease oral hydration [id number] [facility] [address] [place] [phone] 5 09/15/2023 09:07:09 09/21/2023 10:30:12 Amputated below knee 232320936 Z89.519 right below knee amputation .continue oxycodone 5 mg q 6 prncontinu e PT/OT eval and treatment for conditioni ng and strengthen ing.contin ue wound care Betadine, dry gauze, the stump change management facilitator and the amputation shield. Peripheral vascular disease 028697350 I73.9 s/p below knee amputation continue asa, plavix and eliquiscon tinue oxycodone Q 6continue lyrica 150 mg qd and 200 mg at HS Essential hypertension 32450278 I10 continue lisinopril 5 mg dailyconti nue metoprolol 50 mg bidfurosem oxana 40 mg dailymonit or BP /labs Hypothyroidism 21954058 E03.9 labs completed on 09/06 seen today and noted with TSH 16.3 and T4 5.1she is currently taking levothyrox ine 200 mcg daily, will increase to 225 mcg and recheck 10/26 or sooner.she reports being tired at times but is not having any other sx at this time Constipation 15445544 K5 9.09 see hpinormact felipe bowel soundscont inue colace 100 mg bidcontinu e miralax 17 gm daily and increase senna 8.6 mg to BID [id number] Afia Tierney MD [address] [place] [address] 09/19/2023 15:52:03 09/21/2023 10:49:23 Amputated below knee 966582673 Z89.511 As above. Peripheral vascular disease 833320256 I73.89 S/P right BKA.Contin ue Plavix 75 [...] stapes out then and then can start change management facilitator.P rosthetics consult when ready. Essential hypertension 36817981 I10 BP remains in good control on lisinopril 5 mg qd, metoprolol 50 mg BID, and furosemide 40 mg qdMonitor BP and labs. Hypothyroidism 84624335 E03.9 Last TSH sl. high, with nl FT4, but low FT3.Contin ue levothyrox ine 225 mcgRecheck TSH as planned. Constipation 79152077 K5 9.09 No c/o today.Cont inue bowel meds as ordered.Mo nitor bowel function. Carotid ar dahlia stenosis 20024328 I65.29 S/P stent placement in 06/2023.To be on ASA and Plavix x 3 months.The n can stop Plavix.To have repeat U/S next month [id number] MIRI NORTON [address] [address] 09/22/2023 13:52:47 09/23/2023 15:18:26 Amputated below knee 188429924 Z89.519 right below knee amputation .continue oxycodone 5 mg q 6 prncontinu e PT/OT for conditioni ng and strengthen ing.contin ue wound care Betadine, dry gauze, the stump change management facilitator and the amputation shield.lupe sing states wound healing without s/sx of infection. Peripheral vascular disease 743401033 I73.9 continue asa, plavix and eliquiscon tinue oxycodone Q 6continue lyrica 150 mg qd and 200 mg at HS Essential hypertension 26678829 I10 continue lisinopril 5 mg dailyconti nue metoprolol 50 mg bidfurosem oxana 40 mg dailymonit or BP /labs Hypothyroidism 46898803 E03.9 Continue levothyrox ine 225 mcgrecheck TSH around 10/26 [id number] MIRI NORTON [facility] [address] [place] [address] 09/27/2023 11:23:38 10/18/2023 07:43:35 Amputated below knee 492062659 Z89.519 right below knee amputation .continue oxycodone 5 mg q 6 prncontinu e PT/OT for conditioni ng and strengthen ing.contin ue wound care Betadine, dry gauze, the stump change management facilitator and the amputation shield.lupe sing states wound healing without s/sx of infection. Peripheral vascular disease 222951320 I73.9 continue asa, plavix and eliquiscon tinue oxycodone Q 6continue lyrica 150 mg qd and 200 mg at HS Essential hypertension 78557058 I10 continue lisinopril 5 mg dailyconti nue metoprolol 50 mg bidfurosem oxana 40 mg dailymonit or BP /labs Hypothyroidism 19949007 E03.9 Continue levothyrox ine 225 mcgrecheck TSH around 8/ Anxiety 04068892 F41.9 continue ativan 0.5 mg q6 prnshe has agreed to try antidepres santshe was started on fluoxetine 20 mg daily on 09/18will monitor mood and behavior Diabetes mellitus 468036 09 E11.9 no recent BGL, will order weekly checks.con tinue metformin 500 mg BIDcontinu e to monitor FS [id number] MIRI NORTON [address] [address] 10/04/2023 09:15:00 10/18/2023 08:13:38 Amputated below knee 828807879 Z89.519 right below knee amputation .continue oxycodone 5 mg q 6 prncontinu e PT/OT for conditioni ng and strengthen ing.contin ue wound care Betadine, dry gauze, the stump change management facilitator and the amputation shield.lupe [place] states wound healing without s/sx of infection. she will have remaining stable removed this upcoming friday 10/06. Peripheral vascular disease 021721915 I73.9 continue asa, plavix and eliquiscon tinue oxycodone Q 6continue lyrica 150 mg qd and 200 mg at HS Essential hypertension 04775637 I10 continue lisinopril 5 mg dailyconti nue metoprolol 50 mg bidfurosem oxana 40 mg dailymonit or BP /labs Hypothyroidism 58686007 E03.9 Continue levothyrox ine 225 mcgrecheck TSH around 10/26 Anxiety 84836003 F41.9 continue ativan 0.5 mg q6 prnshe has agreed to try antidepres santshe was started on fluoxetine 20 mg daily on 09/18will monitor mood and behavior Diabetes mellitus 922137 09 E11.9 no recent BGL, will order weekly checks.con tinue metformin 500 mg BIDcontinu e to monitor FS7/724 BGL 120 [id number] MIRI NORTON [address] [address] 10/06/2023 08:54:05 10/18/2023 08:26:39 Amputated below knee 140956748 Z89.519 right below knee amputation .continue oxycodone 5 mg q 6 prn- will change to 24 prn and eventually stop of noted she has not used in 3 days.galindo nue PT/OT for conditioni ng and strengthen ing.contin ue wound care Betadine, dry gauze, the stump change management facilitator and the amputation shield.wou nd healing without s/sx of infection. she will have remaining nehemias removed this upcoming friday 10/06. Peripheral vascular disease 042562467 I73.9 continue asa, plavix and eliquiscon tinue oxycodone Q 6continue lyrica 150 mg qd and 200 mg at HS Essential hypertension 36063833 I10 continue lisinopril 5 mg dailyconti nue metoprolol 50 mg bidfurosem oxana 40 mg dailymonit or BP /labs Anxiety 90053132 F41.9 continue ativan 0.5 mg q6 prnshe has agreed to try antidepres santshe was started on fluoxetine 20 mg daily on 09/18will monitor mood and behavior [id number] PÉREZ LUNDBERG, MIRI DOWLING [address] [place] [address] 10/10/2023 10:05:30 10/18/2023 09:02:23 Amputated below knee 824478817 Z89.519 right below knee amputation .remaining nehemias removed on 10/07/23- she has small superficia l open area moist and draining scant serous output. wound care for to cleanse with NS and apply aquacel cover with gauze.cont inue oxycodone 5 mg q 12 prn-contin ue PT/OT for conditioni ng and strengthen ing.contin ue wound care, the stump change management facilitator and the amputation shieldwoun d healing without s/sx of infection. Peripheral vascular disease 421469612 I73.9 continue asa, plavix and eliquiscon tinue oxycodone Q 6continue lyrica 150 mg qd and 200 mg at HS Essential hypertension 30962998 I10 BP has been underconti nue lisinopril 5 mg dailyconti nue metoprolol 50 mg bidfurosem oxana 40 mg dailymonit or BP /labs Anxiety 59818917 F41.9 continue ativan 0.5 mg q6 prnshe has agreed to try antidepres santshe was started on fluoxetine 20 mg daily on 09/18will monitor mood and behavior Carotid ar dahlia stenosis 21913807 I65.29 10/09:Histo ry of bilateral TCAR and [...] whether to reinterven e on the stent. [id number] Tere HerreraMariajose Gentile [facility] JOSEY [address] [facility] [place] [address] 10/14/2023 09:41:31 10/18/2023 09:28:24 Amputated below knee 843517135 Z89.519 does not need wrap. healedappl y skin prep BID nsg updated.wo rking with PTpain controlled . Vascular dementia 354287 004 F01.54 chronis stablediff iculty to recall thoughts and respond to questions. mood stablecont inue supportive caremonito r for decline. [id number] JAKI LÓPEZ NP [facility] [address] [place] [address] 10/20/2023 09:58:42 10/22/2023 09:32:05 Amputated below knee 907858358 Z89.519 right below knee amputation .remaining nehemias removed on 10/07/23- continues to heal well.stop oxycodone 5 mg q 12 prn due to minimal usecontinu e PT/OT for conditioni ng and strengthen ing.contin ue wound care, the stump change management facilitator and the amputation shieldwoun d healing without s/sx of infection. Peripheral vascular disease 972431807 I73.9 continue asa, plavix and eliquiscon tinue lyrica 150 mg qd and 200 mg at HS for pain mgmt Essential hypertension 18812560 I10 VSS, BP soft on occasionco ntinue lisinopril 5 mg dailyconti nue metoprolol 50 mg bidfurosem oxana 40 mg dailymonit or BP /labs Anxiety 88537566 F41.9 continue ativan 0.5 mg q6 prn - occasional use, discussed with nsg. will renew for another 14 days.Dulox etine 20 mg daily recently started, orly. well so far, nsg. feels it has been helping mood and behaviors. Continue to monitorPsy ch following as well. Carotid ar dahlia stenosis 89714258 I65.29 History of bilateral TCAR and left [...] ultrasound , plavix, and follow up appt. [id number] PÉREZ LUNDBERG, MIRI [facility] [address] [place] [address] 10/25/2023 10:59:01 10/26/2023 15:44:22 Amputated below knee 949017951 Z89.519 right below knee amputation , continues to heal well.now open to air ,wound healing without s/sx of infection. continue tylenol and lyrica Peripheral vascular disease 403768604 I73.9 continue asa, plavix and eliquiscon tinue lyrica 150 mg qd and 200 mg at HS for pain mgmtwill discuss need to continue plavix at vascular appt 10/28/23 Essential hypertension 40244769 I10 continue lisinopril 5 mg dailyconti nue metoprolol 50 mg bidfurosem oxana 40 mg dailymonit or BP /labs Anxiety 93214372 F41.9 continue ativan 0.5 mg q6 prn - occasional use, discussed with nsg. will renew for another 14 days.Dulox etine 20 mg daily recently started, orly. well so far, nsg. feels it has been helping mood and behaviors. - seen by bilingual school psychologist on 10/23 reports feeling some improvemen t with duloxetine , recommende d to continueCo ntinue to monitorPsy ch following as well. Carotid ar dahlia stenosis 33176235 I65.29 History of bilateral TCAR and left [...] will be discussed at that appointmen t. [id number] MIRI NORTON [facility] JOSEY [address] [place] [address] [place] [address] 10/26/2023 12:11:32 10/31/2023 16:07:08 COVID-19 796528463 U07.1 see hpiwill started paxlovid, isolation precaution supportati ve treatment: with mucinex 600 mg BID for 5 dayspaxlov id as orderedprn neb tx for sob. [id number] MIRI NORTON VINI DOWLING [address] [facility] [place] [address] 10/31/2023 16:29:45 11/01/2023 13:09:54 COVID-19 789957297 U07.1 she has been stable no reportable sx notedwill received last dose of paxlovid tonightiso lation precaution continue supportati ve treatment: prn neb tx for sob. Amputated below knee 299 002651 Z89.519 right below knee amputation , continues to heal well.now open to air ,wound healing without s/sx of infection. continue tylenol and lyrica Peripheral vascular disease 476374590 I73.9 continue asa, plavix and eliquiscon tinue lyrica 150 mg qd and 200 mg at HS for pain mgmtwill discuss need to continue plavix at vascular appt 10/28/23 Essential hypertension 82474699 I10 continue lisinopril 5 mg dailyconti nue metoprolol 50 mg bidfurosem oxana 40 mg dailymonit or BP /labs Anxiety 29115792 F41.9 continue ativan 0.5 mg q6 prn -continue Duloxetine 20 mg dailymood has been good.Galindo nue to monitorPsy ch following as well. Carotid ar dahlia stenosis 93303449 I65.29 History of bilateral TCAR and left [...] will be discussed at that appointmen tCandis [id number] MIRI NORTON [address] [place] [address] rd [place] [address] 11/04/2023 09:52:30 11/08/2023 11:09:10 COVID-19 332959665 U07.1 completed anti-viral . Amputated below knee 299 862269 Z89.519 right below knee amputation , continues to heal well.now open to air ,wound healing without s/sx of infection. continue tylenol and lyrica Peripheral vascular disease 040413718 I73.9 continue asa, plavix and eliquis- on hold for now for melenacont inue lyrica 150 mg qd and 200 mg at HS for pain mgmt Essential hypertension 85387678 I10 continue lisinopril 5 mg dailyconti nue metoprolol 50 mg bidfurosem oxana 40 mg dailymonit or BP /labs Anxiety 60565586 F41.9 continue ativan 0.5 mg q6 prn -continue Duloxetine 20 mg dailyConti nue to monitorPsy ch following as well. Carotid ar dahlia stenosis 38749215 I65.29 History of bilateral TCAR and left [...] be discussed at that appointmen tCandis Chamberlain [id number] K92.1 11/02: nursing report black tarry stool, [...] hematemesi s, weakness, dizziness and or pallor. [id number] M[facility] NORTON [facility] [address] [place] [address] [place] [address] 11/07/2023 08:49:06 11/09/2023 10:55:24 Melena 5053260 K92.1 11/06: continue to have black tarry [...] s, weakness, dizziness and or pallor. Anemia 746375394 D64.9 H/H trending down today noted at 09/12-signi ficant drop in 7 days tested 3 times. continue ferrous sulfate 325 mg dailycont. Vit D 1000u daily [id number] Sarah Jeffers, ZENOBIA [address] [place] [address] 11/12/2023 07:51:13 11/18/2023 09:17:41 Anemia 439113465 D64.9 per [facility] [place] summary: Held Eliquis, aspirin and Plavix since [...] bmp weekly on mondays x 3 Esophagitis 20618137 K20 .90 no melena noted in hospital, [...] bmp weekly on mondays x 3 Anxiety 92538337 F41.9 while in hopsital her ativan 0.5 mg q6 prn was discontinu edcontinue Duloxetine 20 mg dailyConti nue to monitorPsy ch following as well. Hypothyroidism 84160264 E03.9 adjusted in hospitalco nt levothyrox ine 200 mcg po dailyreche ck tsh in 8 weeksmonit or Essential hypertension 68281605 I10 bp initially soft in hospital, lisinopril was held, now resolved and resumedcon tlisinopri l 5 mg po dailymetop rolol 50 mg po q 12 hoursmonit or Amputated below knee 299 925607 Z89.519 right below knee amputation , continues to heal well.galindo nue tylenol and lyricafu with vascular as planned Peripheral vascular disease 671427466 I73.9 eliquis on holdcontin ueasa, plavixlyri ca 150 mg qdmonitor Pressure i njury of coccygeal region of back stage II 5183493272 4874593 L89.152 healing denuded skin to right coccyx11/11 apply barrier cream topically bid and prnfrequen t brief changes and reposition ingmonitor for infection Vascular dementia 082697 004 F01.54 stablediff iculty to recall thoughts and respond to questions at baseline per staffmood stablecont inue supportive caremonito r for decline. [id number] MIRI NORTON [address] [place] [address] [place] [address] 11/14/2023 09:54:52 11/18/2023 10:04:39 Esophagitis 54532606 K20.90 no melena noted in hospital, but [...] bmp weekly on mondays x 3 Anemia 937552706 D64.9 per [facility] summary: Held Eliquis, aspirin and Plavix since [...] bmp weekly on mondays x 3 Anxiety 90946207 F41.9 while in hopsital her ativan 0.5 mg q6 prn was discontinu edcontinue Duloxetine 20 mg dailyConti nue to monitorPsy ch following as well. Hypothyroidism 18329908 E03.9 adjusted in hospitalco nt levothyrox ine 200 mcg po dailyreche ck tsh in 8 weeksmonit or Essential hypertension 22559776 I10 bp initially soft in hospital, lisinopril was held, now resolved and resumedcon tlisinopri l 5 mg po dailymetop rolol 50 mg po q 12 hoursmonit or Amputated below knee 299 638495 Z89.519 right below knee amputation , continues to heal well.galindo nue tylenol and lyricafu with vascular as planned Peripheral vascular disease 870851582 I73.9 eliquis on holdcontin ueasa, plavixlyri ca 150 mg qdmonitor Pressure i njury of coccygeal region of back stage II [id number] 7194750 L89.152 healing denuded skin to right coccyx11/11 apply barrier cream topically bid and prnfrequen t brief changes and reposition ingmonitor for infection Vascular dementia 528623 004 F01.54 stablediff iculty to recall thoughts and respond to questions at baseline per staffmood stablecont inue supportive caremonito r for decline. [id number] MIRI NORTON [address] [address] 11/17/2023 14:04:30 11/23/2023 09:14:45 Anxiety 47299660 F41.9 stableDulo xetine 20 mg dailyConti nue to monitorPsy ch following as well. Hypothyroidism 70594523 E03.9 adjusted in hospitalco nt levothyrox ine 200 mcg po dailyreche ck tsh in 8 weeksmonit or Essential hypertension 95676552 I10 stable-lis inopril 5 mg po dailymetop rolol 50 mg po q 12 hoursmonit or Amputated below knee 299 097829 Z89.519 right below knee amputation , continues to heal well.galindo nue tylenol and lyricafu with vascular as planned Peripheral vascular disease 434261503 I73.9 eliquis stoppedcon tinue:asa, plavixlyri ca 150 mg qdmonitor Vascular dementia 090142 [address] declinebas sahara difficulty with word findingmoo d stablecont inue supportive caremonito r for decline. Anemia 423832710 D64.9 continuefe rrous sulfate 325 mg dailycont. Vit D 1000u dailymonit or cbc and bmp weekly on mondays x 3 [id number] MIRI NORTON [address] [address] 11/21/2023 11:10:23 11/23/2023 10:20:09 Anxiety 78553847 F41.9 stableDulo xetine 20 mg dailyConti nue to monitorPsy ch following as well. Hypothyroidism 07912274 E03.9 adjusted in hospitalco nt levothyrox ine 200 mcg po dailyreche ck tsh in 8 weeksmonit or Essential hypertension 67854528 I10 stable-lis inopril 5 mg po dailymetop rolol 50 mg po q 12 hoursmonit or Amputated below knee 299 931987 Z89.519 right below knee amputation , continues to heal well.galindo nue tylenol and lyricafu with vascular as planned Peripheral vascular disease 515402242 I73.9 eliquis stoppedcon tinue:asa, plavixlyri ca 150 mg qdmonitor Vascular dementia 622932 [address] declinebas sahara difficulty with word findingmoo d stablecont inue supportive caremonito r for decline. Anemia 555027122 D64.9 continuefe rrous sulfate 325 mg dailycont. Vit D 1000u dailymonit or cbc and bmp weekly on mondays x 3 [id number] MIRI NORTON [address] [address] 11/29/2023 10:14:07 12/01/2023 14:32:41 Anxiety 73416566 F41.9 stablecont inue duloxetine 20 mg daily- she is having a positive response with med.Contin ue to monitorupd ate HDBH with concerns. Hypothyroidism 01333199 E03.9 adjusted in hospitalco nt levothyrox ine 200 mcg po dailyreche ck tsh in 8 weeks- ord for 11/18monito r Essential hypertension 37155781 I10 continue lisinopril 5 mg po dailyconti nue metoprolol 50 mg po q 12 hoursmonit or Amputated below knee 299 931517 Z89.519 right below knee amputation , continues to heal well.galindo nue tylenol and lyricafu with vascular as planned Peripheral vascular disease 675897787 I73.9 eliquis stoppedcon tinue:asa, plavixlyri ca 150 mg qdmonitor Vascular dementia 766503 004 F01.54 expect declinebas sahara difficulty with word findingmoo d stablecont inue supportive caremonito r for decline. Anemia 839672444 D64.9 continuefe rrous sulfate 325 mg dailycont. Vit D 1000u dailymonit or cbc and bmp weekly on mondays x 39/3: H/H has been stable increasing every week. [id number] MIRI NORTON [address] [address] 12/01/2023 11:44:42 12/05/2023 13:22:49 Amputated below knee 050197347 Z89.519 right below knee amputation open wound noted on stump concerning for infection, yellowish drainage noted on dressing ,will send culture.co ntinue tylenol and lyricafu with vascular as planned Peripheral vascular disease 297226977 I73.9 eliquis stoppedcon tinue:asa, plavixlyri ca 150 mg qdmonitor Vascular dementia 939917 004 F01.54 expect declinebas sahara difficulty with word findingmoo d stablecont inue supportive caremonito r for decline. [id number] MIRI NORTON [address] [address] 12/05/2023 09:49:14 12/07/2023 10:15:18 Amputated below knee 497124368 Z89.519 right below knee amputation wound culture pendingcon tinue tylenol and lyricafu with vascular as planned Peripheral vascular disease 635119855 I73.9 eliquis stoppedcon tinue:asa, plavixlyri ca 150 mg qdmonitor Vascular dementia 908834 004 F01.54 expect declinebas sahara difficulty with word findingmoo d stablecont inue supportive caremonito r for decline. [id number] MIRI NORTON [address] [address] 12/12/2023 08:48:56 12/14/2023 08:51:51 Amputated below knee [id number] Z89.519 right below knee amputation continue tylenol and lyricafu with vascular as planned on 12/16/23 Peripheral vascular disease [id number] I73.9 eliquis stoppedcon tinue:asa, plavixlyri ca 150 mg qdmonitor Vascular dementia 666582 004 F01.54 expect declinebas sahara difficulty with word findingmoo d stablecont inue supportive caremonito r for decline. Subconjunc tival hemorrhage of left eye [id number] 80578 H11.32 no pain or visual changesnur sing to update provider for changes in vision, pain or discharge. can apply warm compress for comfort if irritated. 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 Peripheral vascular disease [id number] I73.9 12/15 carotid duplex shows 70 to 99% stenosis in her right ICA, this is s/p TCAR and she has a patent stent. Her left side shows 1 to 49% stenosis in the ICA with a patent stent.repe at duplex in 6 months eliquis stoppedcon tinue:asa, plavixlyri ca 150 mg qdmonitor Vascular dementia 757087 004 F01.54 expect declinebas sahara difficulty with word findingmoo d stablecont inue supportive caremonito r for decline. Subconjunc tival hemorrhage of left eye [id number] 70750 H11.32 resolvingn o pain or visual changesnur sing to update provider for changes in vision, pain or discharge. can apply warm compress for comfort if irritated. monitor for worsening sx, pt is on asa and plavix daily.H/H stable , will continue to monitor Insomnia [id number] G47.0 0 see HPIstop melatonins tart trazodone 50 mg at HSmonitor for effectiven ess [id number] [facility] [address] [facility] [place] HERNANDEZ [address] 12/22/2023 11:08:23 12/23/2023 12:52:01 Amputated below knee [id number] Z89.519 right below knee amputation continue tylenol [...] and promote wound healing. Peripheral vascular disease 062478714 I73.9 12/15 carotid duplex shows 70 to [...] plavixlyri ca 150 mg qdmonitor Vascular dementia 468329 004 F01.54 expect declinebas sahara difficulty with word findingmoo d stablecont inue supportive caremonito r for decline. Subconjunc tival hemorrhage of left eye [id number] 71948 H11.32 resolvingn o pain or visual changesnur sing to update provider for changes in vision, pain or discharge. can apply warm compress for comfort if irritated. monitor for worsening sx, pt is on asa and plavix daily.H/H stable , will continue to monitor Insomnia [id number] G47.0 0 continue trazodone 50 mg at HS- will reassess at next visit.prakash cat for effectiven essdiscuss ed with patient avoiding caffeine drinks before bed, antidepres nuria and BP meds can causes insomnia. we discussed trying relaxation techniques such as deep breathing and guided imagery. [id number] MIRI NORTON [address] [place] [address] 12/27/2023 14:42:28 12/28/2023 11:41:01 Amputated below knee 251504481 Z89.519 right below knee amputation continue tylenol [...] and promote wound healing. Peripheral vascular disease 411232676 I73.9 12/15 carotid duplex shows 70 to [...] plavixlyri ca 150 mg qdmonitor Vascular dementia 136098 004 F01.54 expect declinebas sahara difficulty with word findingmoo d stablecont inue supportive caremonito r for decline. Subconjunc tival hemorrhage of left eye [id number] 51772 H11.32 resolvingn o pain or visual changesnur sing to update provider for changes in vision, pain or discharge. can apply warm compress for comfort if irritated. monitor for worsening sx, pt is on asa and plavix daily.H/H stable , will continue to monitor Insomnia 095495701 G47.0 0 continue trazodone 50 mg at HS- will reassess at next visit.prakash cat for effectiven essdiscuss ed with patient avoiding caffeine drinks before bed, antidepres nuria and BP meds can causes insomnia. we discussed trying relaxation techniques such as deep breathing and guided imagery. [id number] MIRI NORTON [address] [place] [address] 01/02/2024 08:33:03 01/03/2024 11:47:07 Amputated below knee [id number] Z89.519 followed closely by vascular.r ight below [...] and promote wound healing. Peripheral vascular disease 569779146 I73.9 12/15 carotid duplex shows 70 to [...] plavixlyri ca 150 mg qdmonitor Vascular dementia 853224 [address] declinebas sahara difficulty with word findingmoo d stablecont inue supportive caremonito r for decline. Subconjunc tival hemorrhage of left eye [id number] 12456 H11.32 resolvingn o pain or visual changesnur sing to update provider for changes in vision, pain or discharge. can apply warm compress for comfort if irritated. monitor for worsening sx, pt is on asa and plavix daily.H/H stable , will continue to monitor Insomnia 860652677 G47.0 0 continue trazodone 50 mg at [...] [facility] Marixa Chan [id number] Marixa Chan 12/27/2023 1 MEDICARE B-[place]: [employer] Marixa Chan [id number] Marixa Chan Notes Date Note Type Note [...] today for acute rounding visit MIRI NORTON [address] [place] [address], [facility], [place], [address], [employer] [facility] 12/12/2023 14:39:04 12/19/2023 text/html ROS as noted [...] playing television all night. 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 MIRI NORTON [address], [address], [place], [address], [employer] 12/22/2023 16:22:53 12/27/2023 text/html ROS as noted [...] have a stump strinker. MIRI NORTON [address], [address], [place], [address], [facility] [employer] 12/27/2023 15:20:31 01/02/2024 text/html ROS as noted [...] have a stump strinker. MIRI NORTON [address], [address], [place], [address], [employer] 01/02/2024 13:22:00 OBGyn Episode No OBEpisode recorded.
--- OUTSIDE RECORDS SUMMARY | 2025-03-18 07:30 | XMS_ITS | Clinical Summary ---
Author Organization [facility] it Address [address] [place] [address] Care Team Providers Care Informatica Architect Name Role Phone Unavailable Primary Care Provider Unavailabl e Immunizations Immunization Administration Dates Next Due Pfizer SARS-CoV-2 COVID-19, mRNA, LNP-S, preservative free 07/02/2020,06/07/2020 Surgical History Surgery Date Site/Laterality Comments NECK SURGERY PROCEDURE: HISTORICAL NECK SURGERY; COMMENT: spinal stenosis TONSILLECTOMY PROCEDURE: HISTORICAL TONSILLECTOMY CHOLECYSTECTOMY 09/1989 PROCEDURE: HISTORICAL CHOLECYSTECTOMY BREAST REDUCTION PROCEDURE: ND BREAST REDUCTION ROBOTIC ASSISTED HYSTERECTOMY 03/05/14 PROCEDURE: [...]
--- OUTSIDE RECORDS SUMMARY | 2025-03-18 07:30 | XMS_ITS | Encounter Summary ---
Author Organization [facility] Address [address] [place] [address] Phone Care Team Providers Care Press Tender Smoke Signal Name Role Phone Agueda Ann MD Primary Care Provider [phone] Andie Rossi MD Unavailable West Doll MD Unavailable [phone] Britany Coles MD Unavailable Naun Hoang MD Unavailable + Agueda Ann MD Unavailable Mely Bhatti RN Unavailable [email or web address] Encounter Details Date Type Department Care Team (Late st Contact Info) Description 12/24/2022 Procedure Pass [facility], [facility] [address] [place] [address] Social History Tobacco Use Types Packs/Day Years [...] documented as of this encounter Care Teams Press Tender Smoke Signal Relationship Specialty Start Date End Date Agueda Ann MD [address] [address] [email or web address] PCP - General Family Medicine 02/01/19 Andie Rossi MD [address] [place] [address] Neurology 03/02/19 West Doll MD [address] [place] [address] Cardiology 03/02/19 Britany Coles MD [address] [place] [id number] Orthopedic Surgery 03/02/19 Naun Hoang MD [address] [place] [address] Infectious Diseases 03/02/19 Agueda Ann MD [address] [address] [email or web address] Insurance Assigned Provider 07/02/23 04/02/24 Mely Bhatti RN [address] [address] [email or web address] PHCM Type Proof Reproducer 05/12/23 06/09/23 documented as of this encounter Additional Source Comments The information contained in this document represents components of the legal health record. It is not the complete legal health record.[facility]
--- OUTSIDE RECORDS SUMMARY | 2025-03-18 07:30 | XMS_ITS | Encounter Summary ---
Author Organization [facility] Address [address] [place] [address] Phone Care Team Providers Care Health Policy Nurse Name Role Phone Agueda Ann MD Primary Care Provider [phone] Andie Rossi MD Unavailable [phone] West Doll MD Unavailable [phone] Britany Coles MD Unavailable Naun Hoang MD Unavailable + Agueda Ann MD Unavailable Mely Bhatti RN Unavailable [email or web address] Encounter Details Date Type Department Care Team (Late st Contact Info) Description 12/24/2022 Procedure Pass [facility], [facility] - [facility] [address] [place] [address] Social History Tobacco Use Types Packs/Day Years [...] documented as of this encounter Care Teams Health Policy Nurse Relationship Specialty Start Date End Date Agueda Ann MD [address] [address] [email or web address] PCP - General Family Medicine 02/01/19 Andie Rossi MD [address] [place] [address] Neurology 03/02/19 West Doll MD [address] [place] [address] Cardiology 03/02/19 Britany Coles MD [address] [place] [address] [email or web address] Orthopedic Surgery 03/02/19 Naun Hoang MD [address] [place] [address] Infectious Diseases 03/02/19 Agueda Ann MD [address] [address] [email or web address] Insurance Assigned Provider 07/02/23 04/02/24 Mely Bhatti RN [address] [address] [email or web address] PHCM Drywall Finishing Foreman 05/12/23 06/09/23 documented as of this encounter Additional Source Comments The information contained in this document represents components of the legal health record. It is not the complete legal health record.[facility]
--- OUTSIDE RECORDS SUMMARY | 2025-03-18 07:30 | XMS_ITS | Patient Health Record ---
Author Organization [facility] Katie tate Billing Info Address [address] [place] [address] Phone [phone] Care Team Providers Care Body Liner Name Role Phone Bettina BARTOLO BOND Supriya [phone] Reason For Referral No Information Social History [...]
== END 2025-03-18 07:23 | disposition home or self-care (01) ==
LOC: HO.MMNH3L 07:22
PROVIDERS: Visit Provider Physician Assistant Medical
DX: I69.398 Other sequelae of cerebral infarction (principal); I25.9 Chronic ischemic heart disease, unspecified; E03.9 Hypothyroidism, unspecified; Z89.611 Acquired absence of right leg above knee
CPT/HCPCS: 36415; 80048; 85025

== ENCOUNTER 2025-03-25 10:05 | Outpatient (REF) | payer MEDICARE, MEDICAID, SELFPAY ==
[2025-03-25 08:35] LABS: MANUAL DIFF FLAG NO
[2025-03-25 08:45] LABS: Hematocrit 33.0 % (37.0-47.0); Hemoglobin 9.9 g/dl (12.0-16.0); Imm Gran Abs Auto 0.02 X10*3/uL (0.00-0.03); Imm Gran Pct Auto 0.2 % (0.0-0.4); Lymphocytes Absolute Auto 2.3 X10*3/uL (1.2-4.9); Mean Corpuscular HGB Conc 30.0 g/dl (31.0-35.0); Mean Corpuscular Hemoglobin 26.1 pg (27.0-33.0); Mean Corpuscular Volume 86.8 fL (80.0-98.0); NRBC Abs Auto 0.000 X10*3/uL (0.0-0.012); NRBC Pct Auto 0.0 /100WBC (0.0-0.2); Platelet Count 318 X10*3/uL (160-400); Red Blood Count 3.80 X10*6/uL (4.20-5.50); White Blood Count 8.4 X10*3/uL (4.8-10.8)
[2025-03-25 08:51] LABS: Anion Gap 13 (12-20); Blood Urea Nitrogen 40 mg/dL (9-16); Calcium 8.7 mg/dL (8.4-10.2); Carbon Dioxide 23 mmol/L (22-29); Chloride 112 mmol/L (96-108); Estimated Glomerular Filt Rate 56; Potassium 4.5 mmol/L (3.3-5.1); Sodium 143 mmol/L (135-145)
--- OUTSIDE RECORDS SUMMARY | 2025-03-25 11:19 | XMS_ITS | Data Portability ---
Author Organization [facility], Main Office Address [address] [address] [address] [place] [address] Care Team Providers Care Paper Cone Maker Name Role Phone VINI DOWLING 1ST FLOOR [...] Address Organization Details Recorded Time Diabetes mellitus 40734842 Active 2023 MIRI NORTON [address] [facility], [address], [place], [address], [email or web address] 4 20:18:04 Essential hypertensio n 66888126 Active 2023 MIRI NORTON [address] [facility], [address], [place], [address], [facility] 4 20:18:10 Hyperlipide reinier 68992602 Active 2023 MIRI NORTON [address] [place] [address], [address], [place], [address], [facility] 4 20:18:16 Femoral-pop liteal artery bypass graft Completed 202309/01/2023 MIRI NORTON [address] [place] [address], [address], [place], [address], [facility] 4 22:16:23 Anemia 462848111 Active 2023 MIRI NORTON [address] [place] [address], [address], [place], [address], [email or web address] 4 20:20:45 Cerebrovasc ular accident 021180017 Active 2023 MIRI NORTON [address] [place] [address], [address], [place], [address], [email or web address] 4 20:21:06 Femoro-ante rior tibial bypass graft Completed 202309/01/2023 MIRI NORTON [address] [place] [address], [address], [place], [address], [email or web address] 4 22:16:23 Chronic kidney disease stage 3 773034709 Active 2023 MIRI NORTON [address] [place] [address], [address], [place], [address], [email or web address] 4 20:28:49 Peripheral vascular disease 034849388 Active 2023 MIRI NORTON [address] [place] [address], [address], [place], [address], [place] [facility] 20:29:56 Asthenia 70473507 Active 2023 PÉREZ LUNDBERG, MIRI [address], [address], [place], [address], [facility] 20:30:45 Insomnia 463384408 Active 2023 PÉREZ LUNDBERG, MIRI [address], [address], [place], [address], [facility] 4 21:49:49 Constipatio n 65309539 Active [address] NORTON [address], [address], [place], [address], [facility] 4 21:52:14 Acute kidney injury 47805216 Active [address]ORTON [address], [address], [place], [address], [facility] - [facility] 4 21:56:55 Hypocalcemi a 5645159 Completed 202309/01/[address]ON [address], [address], [place], [address], [facility] 4 22:16:23 Myasthenia gravis 11459489 Active [address]ON [address], [address], [place], [address], [facility] 4 22:10:42 Aphasia 73039074 Completed 202309/01/[address]ON [address], [address], [place], [address], [facility] 4 22:16:23 Vascular dementia 731962670 Active [address]ORTON [address], [address], [place], [address], [facility] 4 13:06:33 Amputated below knee 780736711 Active [address]ON [address], [address], [place], [address], [facility] 4 16:38:11 Delirium 7256330 Active [address]23 [address] NORTON [address], [address], [place], [address], [facility] 4 16:54:43 Dysphagia 99389980 Active [address], [address], [place], [address], [facility] 4 16:55:09 Toxic encephalopa thy 31796503 Active 2023 JOHN NORTONP [address] [facility], [address], [place], [address], [facility] 4 16:55:43 Hypothyroid ism 11173508 Active 2023 JOHN NORTONP [address] [facility], [address], [place], [address], [facility] 4 22:18:37 Anxiety 41630108 Active 2023 PÉREZ LUNDBERG [facility] [address] [facility], [address], [place], [address], [facility] 4 22:24:04 Carotid artery stenosis 00776924 Active 2023 MIRI NORTON [address] [facility], [address], [place], [address], [facility] 4 12:10:00 Problem Notes [...] % 118/68 mm[Hg] MIRI NORTON [address] [facility], [address], [place], [address], [email or web address] 4 14:16:49 Date Recorded Body height Heart rate Respiratory rate Body temperature Oxygen saturation Systolic And Diastolic Provider Name and Address Organization Details Last Updated DateTime 4 165.1 cm 73 /min 18 /min 98 [degF] 94 % 111/76 mm[Hg] MIRI NORTON [address] [facility], [address], [place], [address], [email or web address] 4 11:35:13 Date Recorded Body height Respiratory rate Body temperature Oxygen saturation Heart rate Systolic And Diastolic Provider Name and Address Organization Details Last Updated DateTime 4 165.1 cm 18 /min 98 [degF] 94 % 68 /min 118/71 mm[Hg] MIRI NORTON [address] [facility], [address], [place], [address], [email or web address] 4 16:01:39 Date Recorded Body height Body mass index (BMI) Body weight Heart rate Respiratory rate Body temperature Oxygen saturation Systolic And Diastolic Provider Name and Address Organization Details Last Updated DateTime 4 165.1 cm 28.6 kg/m2 06948.8 9 g 73 /min 16 /min 98.4 [degF] 100 % 135/68 mm[Hg] MIRI NORTON [address] [facility], [address], [place], [address], [email or web address] 4 15:14:16 Social History Question Answer Notes LastModified by Organizat ion Details LastModified Time Tobacco Smoking Status Never Smoker MIRI NORTON [address] [facility], [address], [place], [address], [email or web address] 06/30/2023 02:31:25 Do You Have An [...] Do 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 Yes Information not available 07/22/2023 What Was [...] Tdap 9 completed Elle islas [place] - [facility] 07/01/2023 13:25:18 Tdap 8 completed Elle South null, [facility] 07/01/2023 13:25:33 Pneumococcal conjugate PCV20, polysaccharide [id number] conjugate, adjuvant, PF 2 completed Elle South null, [facility] 07/01/2023 13:25:55 pneumococcal polysaccharide PPV23 4 completed Elle Brannon null, [facility] 07/01/2023 13:26:09 pneumococcal polysaccharide PPV23 7 completed Elle Brannon null, [facility] 07/01/2023 13:26:18 influenza, unspecified formulation 2 completed Elle Brannon null, [facility] 07/01/2023 13:26:47 influenza, unspecified formulation 3 completed Elle Brannon null, [facility] 07/01/2023 13:26:55 SARS-COV-2 (COVID-19) vaccine, UNSPECIFIED 1 completed Elle Brannon null, [facility] 07/01/2023 13:27:17 SARS-COV-2 (COVID-19) vaccine, UNSPECIFIED 1 completed Elle Brannon null, [facility] 07/01/2023 13:27:40 SARS-COV-2 (COVID-19) vaccine, UNSPECIFIED 1 completed Elle Brannon null, [facility] 07/01/2023 13:27:55 SARS-COV-2 (COVID-19) vaccine, UNSPECIFIED 2 completed Elle Brannon null, [facility] 07/01/2023 13:28:04 SARS-COV-2 (COVID-19) vaccine, UNSPECIFIED 2 completed Elle Brannon null, [facility] 07/01/2023 13:28:24 SARS-COV-2 (COVID-19) vaccine, UNSPECIFIED 3 completed Elle Brannon null, [facility] 07/01/2023 13:28:37 zoster, unspecified formulation 9 completed Elle Brannon null, [facility] 07/01/2023 13:29:06 zoster, unspecified formulation 9 completed Elle South [facility] 07/01/2023 13:29:21 Past Encounters Encounter ID Performer Location Encounter Start Date Encounter Closed Date Diagnosis/Indication Diagnosis SNOMED-CT Code Diagnosis ICD10 Code Diagnosis IMO Codes Diagnosis Note [id number] MIRI NORTON [address] [facility] [place] [address] 06/29/2023 15:34:40 07/22/2023 14:35:38 Peripheral vascular disease 281743582 I73.9 s/p right femoral endarterec bridget with [...] rightfollo w up with vascular 06/29 Asthenia 71058667 R53.1 hx of myasthenia gravisPT/O T eval and treat Diabetes mellitus 972582 09 E11.9 A1c 5.7 on 06/23hospit al records indicate that she states she is taking for constipati on, she is not sure she is a diabetic.c ontinue metformin 500 mg BIDcontinu e to monitor FSfollow-u p with PCP after discharge for further management Essential hypertension 88828727 I10 continue lisinopril 5 mg dailyconti nue metoprolol 50 mg bidfurosem oxana 40 mg dailymonit or BP /labs Hyperlipidemia 57605299 E78.5 atorvastat in 40 mg dailymonit or lipids prn Insomnia 093021093 G47.0 0 continue melatonin 9 mg hscontinue trazadone 12.5 mg hs prn Constipation 15485763 K5 9.00 continue colace 100 mg bidcontinu e miralax 17 gm dailyincre ase oral hydration Anemia 094095441 D64.9 continue ferrous sulfate 325 mg dailymonit or CBCH&H stable at 7.9/25.1 Hypocalcemia 9568893 E83 .51 continue calcium carbonate 500 mg dailyconti nue cholecalci ferol 1000 u daily Myasthenia gravis 047467 04 G70.00 carrying dxmaintain safety/pre cautionsno t on medication Cerebrovas cular accident 131229339 I63.9 carrying dx Chronic ki dney disease stage 3 967965873 N18.30 mahi resolved in acute careavoid nephrotoxi c medication smonitor labs [id number] [facility] [address] [place] [address] 06/30/2023 11:39:21 07/04/2023 14:42:16 Bleeding from nose 516329048 R04.0 uncontroll ed bleeding from right narespt is on multiple anticoag( asa, eliquis and plavix) held this morning.wi ll send to ED for eval and tx. [id number] MIRI NORTON [facility] [address] [place] [address] 07/12/2023 11:03:46 07/19/2023 11:10:58 Open wound of right foot [id number] 1445956 S91.301A dorsal right foot with wound vacDo Not remove wound vac, she has appt with vascular on 07/13 Surgical i ncision wound of skin 0056573890 00 R23.8 right lateral mid thigh with 22 nehemias right low leg corral 12 staple right lower extremity medial thigh wound with packing Peripheral vascular disease 343682163 I73.9 s/p right femoral endarterec bridget with [...] rightfollo w up with vascular 06/29 Asthenia 25071389 R53.1 hx of myasthenia gravisPT/O T eval and treat Diabetes mellitus 111267 09 E11.9 A1c 5.7 on 06/23hospit al records indicate that she states she is taking for constipati on, she is not sure she is a diabetic.c ontinue metformin 500 mg BIDcontinu e to monitor FSfollow-u p with PCP after discharge for further management Essential hypertension 12793182 I10 continue lisinopril 5 mg dailyconti nue metoprolol 50 mg bidfurosem oxana 40 mg dailymonit or BP /labs Hyperlipidemia 77418386 E78.5 atorvastat in 40 mg dailymonit or lipids prn Insomnia 900269871 G47.0 0 continue melatonin 9 mg hscontinue trazadone 12.5 mg hs prn Constipation 86785924 K5 9.00 continue colace 100 mg bidcontinu e miralax 17 gm dailyincre ase oral hydration Anemia 432032470 D64.9 baseline 7.9-8decre ased to 7.0 due to epistaxiss he was transfused 2 PRBCsconti nue ferrous sulfate 325 mg dailymonit or CBC Hypocalcemia 2104589 E83 .51 continue calcium carbonate 500 mg dailyconti nue cholecalci ferol 1000 u daily Myasthenia gravis 706551 04 G70.00 carrying dxmaintain safety/pre cautionsno t on medication Cerebrovas cular accident 873284843 I63.9 carrying dx Chronic ki dney disease stage 3 461641044 N18.30 mahi resolved in acute careavoid nephrotoxi c medication smonitor labs Aphasia 72533286 R47.01 hx of CVAIntermi ttent aphasia/Wo rd finding difficulty no new stroke seen on brain MRI.Suspec t vascular dementia, may have some hypoperfus ion given her anemia. [id number] MIRI NORTON [address] [place] [address] rd [place] [address] 07/18/2023 10:15:58 07/22/2023 15:25:22 Open wound of right foot 0048849210 7775678 S91.301A s/p wound debridemen t 07/13, will be returning to vascular 07/19 for integra placement and wound vac Surgical i ncision wound of skin 7149705423 00 R23.8 right lateral mid thigh with 22 staplesrig ht low leg corral 12 staplerigh t lower extremity medial thigh wound with packingnur sing to removed on 07/18 ord placed in [facility] Peripheral vascular disease 057998791 I73.9 s/p right femoral endarterec bridget with [...] 6 prncontinu e lidocaine patch right Asthenia 32005174 R53.1 hx of myasthenia gravisPT/O T eval and treat Diabetes mellitus 293907 09 E11.9 A1c 5.7 on 06/23hospit al records indicate that she states she is taking for constipati on, she is not sure she is a diabetic.c ontinue metformin 500 mg BIDcontinu e to monitor FSfollow-u p with PCP after discharge for further management Essential hypertension 06932622 I10 continue lisinopril 5 mg dailyconti nue metoprolol 50 mg bidfurosem oxana 40 mg dailymonit or BP /labs Constipation 71602129 K5 9.00 continue colace 100 mg bidcontinu e miralax 17 gm dailyincre ase oral hydration Anemia 826084926 D64.9 baseline 7.9-8decre ased to 7.0 due to epistaxiss he was transfused 2 PRBCsconti nue ferrous sulfate 325 mg dailymonit or CBC Aphasia 71051809 R47.01 hx of CVAIntermi ttent aphasia/Wo rd finding difficulty no new stroke seen on brain MRI.Suspec t vascular dementia, may have some hypoperfus ion given her anemia. [id number] Afia Tierney MD [address] [place] [address] 07/22/2023 14:24:36 08/15/2023 12:08:31 Open wound of right foot 3002202676 5170397 S91.301A Continue wound care as ordered.F/ U with surgeon as planned for further debridemen t and wound vac placement. Surgical i ncision wound of skin 2224327642 00 R23.8 Wounds healing well.Stale s removed. Peripheral vascular disease 599820670 I73.9 s/p right femoral endarterec bridget with [...] mg q 6 hrs prnMonitor sxs. Asthenia 80700515 R53.1 As above. Diabetes mellitus 600153 09 E11.9 HgA1C was 5.7 on 06/23All sugars <200 since here, so fingerstic ks d/c'd on 07/18Contin ue metformin 500 mg BIDMonitor fingerstic ks prn. Essential hypertension 08182894 I10 BP in good control on lisinopril 5 mg qd, metoprolol 50 mg BID, and furosemide 40 mg qdMonitor BP and labs. Constipation 36915444 K5 9.09 Continue bowel meds as ordered.Mo nitor bowel function. Anemia 667278792 D64.89 Multifacto rial.Galindo nue ferrous sulfate 325 mg qdMonitor CBC Aphasia 40098772 R47.01 As above. Hyperlipidemia 45743525 E78.49 Continue atorvastat in 40 mg qdMonitor lipids yearly Insomnia 801975512 G47.0 0 Continue melatonin 9 mg qhs and trazadone 12.5 mg qhs prnMonitor sleep patterns. Hypocalcemia 2904678 E83 .51 Doesn't have hypocalcem ia.Correct ed Ca+ os 9.08Likely is on Ca+ and vit D for osteopenia .Continue calcium carbonate 500 mg qd and cholecalci ferol 1000 IU qd. Myasthenia gravis 297217 04 G70.00 Carrying dxOn no meds at this time.Very deconditio kelsy.Needs PT/OT for strengthen ing, balance, gait training, safety and function.C ontinue fall precaution s.Monitor for safety. Cerebrovas cular accident 926006387 I63.89 With mod to severe aphasia.SL P eval and tx.Continu e meds as above.Prakash cat for new neuro sxs. Chronic ki dney disease stage 3 579081772 N18.32 At baseline.C ontinue to avoid nephrotoxi c meds as able.Monit or labs.Renal consult prn. Anxiety 12011269 F41.1 Very anxious tonight. Anxiety makes it even harder for her to get her words out.Will start lorazepam 0.5 mg q 6 hrs prn [id number] MIRI NORTON [address] [place] [address] [place] [address] 07/25/2023 12:45:25 07/26/2023 15:42:48 Open wound of right foot 5107971262 5632803 S91.301A 07/19: s/p wound debridemen tcontinue wound treatment as ordered.fo llow up with [facility] on 08/01 at 130 pm Surgical i ncision wound of skin 7586625932 00 R23.8 right lateral mid thigh - HEALING NEHEMIAS REMOVED IN ACUTE CAREright low leg corral healingrig ht lower extremity medial thigh wound with packing Peripheral vascular disease 319127490 I73.9 s/p right femoral endarterec bridget with [...] 6 prncontinu e lidocaine patch right Asthenia 39262402 R53.1 hx of myasthenia gravisPT/O T eval and treat Diabetes mellitus 067684 09 E11.9 continue metformin 500 mg BIDcontinu e to monitor FSfollow-u p with PCP after discharge for further management Essential hypertension 48787020 I10 continue lisinopril 5 mg dailyconti nue metoprolol 50 mg bidfurosem oxana 40 mg dailymonit or BP /labs Constipation 89127447 K5 9.00 continue colace 100 mg bidschedul ed miralax 17 gm daily and senna 8.6 mg daily.incr ease oral hydration Anemia 407022980 D64.9 see hpitoday 6.7 -will recheck on 07/25contin ue ferrous sulfate 325 mg dailycolor is normal, there is no SOB, extremitie s are warm.monit or CBC [id number] MIRI NORTON [address] [address] 07/29/2023 09:49:56 08/02/2023 10:28:17 Open wound of right foot 6128157291 0298728 S91.301A 07/19: s/p wound debridemen tcontinue wound treatment as ordered.fo llow up with [facility] on 08/01 at 130 pm Peripheral vascular disease 782650268 I73.9 s/p right femoral endarterec bridget with [...] prncontinu e lidocaine patch right Diabetes mellitus 027366 09 E11.9 continue metformin 500 mg BIDcontinu e to monitor FSfollow-u p with PCP after discharge for further management Essential hypertension 25803311 I10 continue lisinopril 5 mg dailyconti nue metoprolol 50 mg bidfurosem oxana 40 mg dailymonit or BP /labs Anemia 886347338 D64.9 see hpicontinu e ferrous sulfate 325 mg dailycolor is normal, there is no SOB, extremitie s are warm.monit or CBC [id number] MIRI NORTON [address] [address] 08/05/2023 09:45:20 08/09/2023 11:18:14 Open wound of right foot 6488307195 1804902 S91.301A 07/19: s/p wound debridemen tcontinue wound treatment as ordered.fo llow up with [facility] on 08/02 with new wound care orders-[facility] care for R foot: Apply saline moistened Promogran over Puraply three times weekly. Peripheral vascular disease 858654322 I73.9 s/p right femoral endarterec bridget with [...] prncontinu e lidocaine patch right Diabetes mellitus 962550 09 E11.9 continue metformin 500 mg BIDcontinu e to monitor FSfollow-u p with PCP after discharge for further management Essential hypertension 99081464 I10 continue lisinopril 5 mg dailyconti nue metoprolol 50 mg bidfurosem oxana 40 mg dailymonit or BP /labs Anemia 186191423 D64.9 see hpicontinu e ferrous sulfate 325 mg dailycolor is normal, there is no SOB, extremitie s are warm.monit or CBC [id number] MIRI NORTON JOSEY [address] [place] [address] 08/09/2023 08:23:37 08/12/2023 11:43:31 Open wound of right foot 0550905812 7952224 S91.301A 07/19: s/p wound debridemen tcontinue wound treatment as ordered.fo llow up with [facility] on 08/02 with new wound care orders-[facility] care for R foot: Apply saline moistened Promogran over Puraply three times weekly.fol low up appt 08/09 [facility] with vascular. Peripheral vascular disease 126967458 I73.9 s/p right femoral endarterec bridget with [...] prncontinu e lidocaine patch right Diabetes mellitus 613077 09 E11.9 continue metformin 500 mg BIDcontinu e to monitor FS Essential hypertension 20166515 I10 continue lisinopril 5 mg dailyconti nue metoprolol 50 mg bidfurosem oxana 40 mg dailymonit or BP /labs Anemia 622875802 D64.9 H/H has been stable.con tinue ferrous sulfate 325 mg dailycolor is normal, there is no SOB, extremitie s are warm.monit or CBC [id number] MIRI NORTON [address] [place] [address] [place] [address] 08/15/2023 13:44:19 08/18/2023 13:20:18 Open wound of right foot 7625445692 9122880 S91.301A 07/19: s/p wound debridemen tcontinue wound treatment as ordered.fo llow up with [facility] on 08/02 with new wound care orders-[facility] care for R foot: Apply saline moistened Promogran over Puraply three times weekly.07/26 5 :s/p right foot debridemen t, applicatio n of skin substitute graftfollo w up appt 08/15 at [facility] with vascular. Peripheral vascular disease 705468952 I73.9 s/p right femoral endarterec bridget with [...] prncontinu e lidocaine patch right Diabetes mellitus 730084 09 E11.9 continue metformin 500 mg BIDcontinu e to monitor FS Essential hypertension 91697666 I10 continue lisinopril 5 mg dailyconti nue metoprolol 50 mg bidfurosem oxana 40 mg dailymonit or BP /labs Anemia 025500540 D64.9 H/H 6.6/21.2- will repeat labsconsid er adding ascorbic acid dailyconti nue ferrous sulfate 325 mg dailycolor is normal, there is no SOB, extremitie s are warm.monit or CBC [id number] MIRI NORTON [address] [place] [address] 08/16/2023 08:21:08 08/18/2023 15:50:07 Open wound of right foot 7946106610 6574413 S91.301A see HPI with new finding today,07/19 : s/p wound debridemen :s/p right foot debridemen t, applicatio n of skin substitute graft08/10: tuesday morning sent back to [facility] for excessive wound bleeding thru dressings- transfused 1 unit of packed red blood cells.08/11 : returned from [facility].: abnormal H/H 6.319.9 Peripheral vascular disease 229257799 I73.9 s/p right femoral endarterec bridget with [...] 6 prncontinu e lidocaine patch right Anemia 340845280 D64.9 H/H 6.19.9co ntinue ferrous sulfate 325 mg dailycolor is pale there is no SOB, extremitie s are warm, right foot cold. [id number] MIRI NORTON [address] [place] [address] 08/29/2023 12:13:56 09/05/2023 15:08:58 Amputated below knee 403847132 Z89.519 Critical limb ischemia of right lower extremity now s/p right below knee amputation .continue oxycodone 5 mg q 6 prnfollow up with vascular on 09/01/23 Peripheral vascular disease 403767822 I73.9 s/p below knee amputation continue asa, plavix and eliquiscon tinue oxycodonec ontinue lyrica 150 mg qd and 200 mg at HS Delirium 3577605 R41.0 resolved in acute careof note she is at baseline status, she is alert and oriented. Dysphagia 98084976 R13.1 0 resolvedsh e was seen by speech in acute acute care, continue reg diet with thin liquids Toxic encephalopathy 283 82781 G92.9 resolved in acute careammoni a level 20 on 08/24 Diabetes mellitus 056430 09 E11.9 continue metformin 500 mg BIDcontinu e to monitor FS Essential hypertension 32194415 I10 continue lisinopril 5 mg dailyconti nue metoprolol 50 mg bidfurosem oxana 40 mg dailymonit or BP /labs Hypothyroidism 20186457 E03.9 continue levothyrox ine 200 mcgtsh 8- recheck labs in 6-8 weeks Hyperlipidemia 38130728 E78.49 atorvastat in 40 mg dailymonit or lipids prn Anemia 863126618 D64.9 continue ferrous sulfate 325 mg dailycont. Vit D 1000u daily Constipation 20365508 K5 9.09 continue colace 100 mg bidschedul ed miralax 17 gm daily and senna 8.6 mg daily.incr ease oral hydration Anxiety 98905448 F41.9 continue ativan 0.5 mg q6 prnpsych eval and tx- she had recent amputation , I think she will benefit from speaking with psych, she will need support coping with limp loss. [id number] MIRI NORTON VINI DOWLING [address] [place] [address] [place] [address] 08/31/2023 10:12:07 09/05/2023 16:19:16 Cough 63775665 R05.9 08/29: non productive congested cough- is not interrupti ng with sleepchest xay showed no active infiltrate s or changes ofpulmonar y venous congestion or evidence of a pleural effusion.w ill start mucinex 600 mg q12 for 7 days and re eval. Amputated below knee 299 283144 Z89.519 Critical limb ischemia of right lower extremity now s/p right below knee amputation .continue oxycodone 5 mg q 6 prnfollow up with vascular on 09/01/23PT/O T eval and treatment for conditioni ng and strengthen ing. Peripheral vascular disease [id number] I73.9 s/p below knee amputation continue asa, plavix and eliquiscon tinue oxycodonec ontinue lyrica 150 mg qd and 200 mg at HS Essential hypertension 02626341 I10 continue lisinopril 5 mg dailyconti nue metoprolol 50 mg bidfurosem oxana 40 mg dailymonit or BP /labs Hypothyroidism 80042620 E03.9 continue levothyrox ine 200 mcgtsh 8- recheck labs in 6-8 weeks Anxiety 46485636 F41.9 continue ativan 0.5 mg q6 prnpsych eval and tx- she had recent amputation , I think she will benefit from speaking with psych, she will need support coping with limp loss.mood is stable today. [id number] MIRI NORTON JOSEY [address] [place] [address] 5 09/05/2023 08:59:26 09/08/2023 16:20:28 Cough 38929534 R05.9 resolved Amputated below knee 299 374736 Z89.519 right below knee amputation .continue oxycodone 5 mg q 6 prncontinu e PT/OT eval and treatment for conditioni ng and strengthen ing.contin ue wound care Betadine, dry gauze, the stump potato chip sacking machine operator and the amputation shield. Peripheral vascular disease 644493234 I73.9 s/p below knee amputation continue asa, plavix and eliquiscon tinue oxycodonec ontinue lyrica 150 mg qd and 200 mg at HS Essential hypertension 10984344 I10 continue lisinopril 5 mg dailyconti nue metoprolol 50 mg bidfurosem oxana 40 mg dailymonit or BP /labs Hypothyroidism 79389274 E03.9 continue levothyrox ine 200 mcgtsh 8- recheck labs in 6-8 weeks Anxiety 13713806 F41.9 continue ativan 0.5 mg q6 prnshe was seen by counseling psychologist who is recommendi ng starting duloxetine , benfits discuused ,patient will like to think about it. Carotid ar dahlia stenosis 53280239 I65.29 stent placement in june. Amanda would like her on aspirin and plavix for 3 months post op, then can resume aspirin and eliquis.Sh e will need a carotid duplex later on this summer to recheck the right carotid, determine whether to reinterven e on the stent. [id number] MIRI NORTON JOSEY [address] [place] [address] DIPIKAMARINEANDREW [address] 5 09/07/2023 11:22:32 09/09/2023 08:57:56 Amputated below knee 513636397 Z89.519 right below knee amputation .continue oxycodone 5 mg q 6 prncontinu e PT/OT eval and treatment for conditioni ng and strengthen ing.contin ue wound care Betadine, dry gauze, the stump potato chip sacking machine operator and the amputation shield. Peripheral vascular disease 681236729 I73.9 s/p below knee amputation continue asa, plavix and eliquiscon tinue oxycodonec ontinue lyrica 150 mg qd and 200 mg at HS Essential hypertension 31951616 I10 continue lisinopril 5 mg dailyconti nue metoprolol 50 mg bidfurosem oxana 40 mg dailymonit or BP /labs Hypothyroidism 29312819 E03.9 continue levothyrox ine 200 mcgtsh 8- recheck labs in 6-8 weeks Anxiety 70256893 F41.9 continue ativan 0.5 mg q6 prnshe was seen by counseling psychologist who is recommendi ng starting duloxetine , benfits discuused ,patient will like to think about it. Carotid ar dahlia stenosis 61028162 I65.29 stent placement in june. Amanda would like her on aspirin and plavix for 3 months post op, then can resume aspirin and eliquis.Sh e will need a carotid duplex later on this summer to recheck the right carotid, determine whether to reinterven e on the stent. 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 Peripheral vascular disease 562067574 I73.9 s/p below knee amputation continue asa, plavix and eliquiscon tinue oxycodone Q 6continue lyrica 150 mg qd and 200 mg at HS Essential hypertension 21270774 I10 continue lisinopril 5 mg dailyconti nue metoprolol 50 mg bidfurosem oxana 40 mg dailymonit or BP /labs Hypothyroidism 36917983 E03.9 continue levothyrox ine 200 mcgtsh 8- recheck labs in 6-8 weeks Constipation 93424069 K5 9.09 she reports that she has [...] evening, will order imaging.in crease oral hydration [id number] [facility] [address] [place] [phone] 5 09/15/2023 09:07:09 09/21/2023 10:30:12 Amputated below knee 056351174 Z89.519 right below knee amputation .continue oxycodone 5 mg q 6 prncontinu e PT/OT eval and treatment for conditioni ng and strengthen ing.contin ue wound care Betadine, dry gauze, the stump potato chip sacking machine operator and the amputation shield. Peripheral vascular disease 020334455 I73.9 s/p below knee amputation continue asa, plavix and eliquiscon tinue oxycodone Q 6continue lyrica 150 mg qd and 200 mg at HS Essential hypertension 05842882 I10 continue lisinopril 5 mg dailyconti nue metoprolol 50 mg bidfurosem oxana 40 mg dailymonit or BP /labs Hypothyroidism 92001058 E03.9 labs completed on 09/06 seen today and noted with TSH 16.3 and T4 5.1she is currently taking levothyrox ine 200 mcg daily, will increase to 225 mcg and recheck 10/26 or sooner.she reports being tired at times but is not having any other sx at this time Constipation 00430853 K5 9.09 see hpinormact felipe bowel soundscont inue colace 100 mg bidcontinu e miralax 17 gm daily and increase senna 8.6 mg to BID [id number] Afia Tierney MD [address] [place] [address] 5 09/19/2023 15:52:03 09/21/2023 10:49:23 Amputated below knee 462018531 Z89.511 As above. Peripheral vascular disease 179439809 I73.89 S/P right BKA.Contin ue Plavix 75 [...] stapes out then and then can start potato chip sacking machine operator.P rosthetics consult when ready. Essential hypertension 65430421 I10 BP remains in good control on lisinopril 5 mg qd, metoprolol 50 mg BID, and furosemide 40 mg qdMonitor BP and labs. Hypothyroidism 65331682 E03.9 Last TSH sl. high, with nl FT4, but low FT3.Contin ue levothyrox ine 225 mcgRecheck TSH as planned. Constipation 97841167 K5 9.09 No c/o today.Cont inue bowel meds as ordered.Mo nitor bowel function. Carotid ar dahlia stenosis 37526491 I65.29 S/P stent placement in 06/2023.To be on ASA and Plavix x 3 months.The n can stop Plavix.To have repeat U/S next month [id number] MIRI NORTON [address] [phone] 5 09/22/2023 13:52:47 09/23/2023 15:18:26 Amputated below knee 155184959 Z89.519 right below knee amputation .continue oxycodone 5 mg q 6 prncontinu e PT/OT for conditioni ng and strengthen ing.contin ue wound care Betadine, dry gauze, the stump potato chip sacking machine operator and the amputation shield.lpue sing states wound healing without s/sx of infection. Peripheral vascular disease 377469366 I73.9 continue asa, plavix and eliquiscon tinue oxycodone Q 6continue lyrica 150 mg qd and 200 mg at HS Essential hypertension 42057958 I10 continue lisinopril 5 mg dailyconti nue metoprolol 50 mg bidfurosem oxana 40 mg dailymonit or BP /labs Hypothyroidism 03391504 E03.9 Continue levothyrox ine 225 mcgrecheck TSH around 10/26 [id number] [facility] [address] [place] [address] 09/27/2023 11:23:38 10/18/2023 07:43:35 Amputated below knee 670503860 Z89.519 right below knee amputation .continue oxycodone 5 mg q 6 prncontinu e PT/OT for conditioni ng and strengthen ing.contin ue wound care Betadine, dry gauze, the stump potato chip sacking machine operator and the amputation shield.lupe sing states wound healing without s/sx of infection. Peripheral vascular disease 517100524 I73.9 continue asa, plavix and eliquiscon tinue oxycodone Q 6continue lyrica 150 mg qd and 200 mg at HS Essential hypertension 44434211 I10 continue lisinopril 5 mg dailyconti nue metoprolol 50 mg bidfurosem oxana 40 mg dailymonit or BP /labs Hypothyroidism 71095733 E03.9 Continue levothyrox ine 225 mcgrecheck TSH around 8/ Anxiety 84950612 F41.9 continue ativan 0.5 mg q6 prnshe has agreed to try antidepres santshe was started on fluoxetine 20 mg daily on 09/18will monitor mood and behavior Diabetes mellitus 794725 09 E11.9 no recent BGL, will order weekly checks.con tinue metformin 500 mg BIDcontinu e to monitor FS [id number] MIRI NORTON [address] [phone] 10/04/2023 09:15:00 10/18/2023 08:13:38 Amputated below knee 663440795 Z89.519 right below knee amputation .continue oxycodone 5 mg q 6 prncontinu e PT/OT for conditioni ng and strengthen ing.contin ue wound care Betadine, dry gauze, the stump potato chip sacking machine operator and the amputation shield.lupe [place] states wound healing without s/sx of infection. she will have remaining stable removed this upcoming friday 10/06. Peripheral vascular disease 585256509 I73.9 continue asa, plavix and eliquiscon tinue oxycodone Q 6continue lyrica 150 mg qd and 200 mg at HS Essential hypertension 95865528 I10 continue lisinopril 5 mg dailyconti nue metoprolol 50 mg bidfurosem oxana 40 mg dailymonit or BP /labs Hypothyroidism 24567146 E03.9 Continue levothyrox ine 225 mcgrecheck TSH around 10/26 Anxiety 12163396 F41.9 continue ativan 0.5 mg q6 prnshe has agreed to try antidepres santshe was started on fluoxetine 20 mg daily on 09/18will monitor mood and behavior Diabetes mellitus 842508 09 E11.9 no recent BGL, will order weekly checks.con tinue metformin 500 mg BIDcontinu e to monitor FS7/724 BGL 120 [id number] MIRI NORTON [address] [address] 10/06/2023 08:54:05 10/18/2023 08:26:39 Amputated below knee 729285444 Z89.519 right below knee amputation .continue oxycodone 5 mg q 6 prn- will change to 24 prn and eventually stop of noted she has not used in 3 days.galindo nue PT/OT for conditioni ng and strengthen ing.contin ue wound care Betadine, dry gauze, the stump potato chip sacking machine operator and the amputation shield.wou nd healing without s/sx of infection. she will have remaining nehemias removed this upcoming friday 10/06. Peripheral vascular disease 142396825 I73.9 continue asa, plavix and eliquiscon tinue oxycodone Q 6continue lyrica 150 mg qd and 200 mg at HS Essential hypertension 91634821 I10 continue lisinopril 5 mg dailyconti nue metoprolol 50 mg bidfurosem oxana 40 mg dailymonit or BP /labs Anxiety 89251630 F41.9 continue ativan 0.5 mg q6 prnshe has agreed to try antidepres santshe was started on fluoxetine 20 mg daily on 09/18will monitor mood and behavior [id number] PÉREZ LUNDBERG, MIRI DOWLING [address] [place] [address] 10/10/2023 10:05:30 10/18/2023 09:02:23 Amputated below knee 412688142 Z89.519 right below knee amputation .remaining nehemias removed on 10/07/23- she has small superficia l open area moist and draining scant serous output. wound care for to cleanse with NS and apply aquacel cover with gauze.cont inue oxycodone 5 mg q 12 prn-contin ue PT/OT for conditioni ng and strengthen ing.contin ue wound care, the stump potato chip sacking machine operator and the amputation shieldwoun d healing without s/sx of infection. Peripheral vascular disease 194020669 I73.9 continue asa, plavix and eliquiscon tinue oxycodone Q 6continue lyrica 150 mg qd and 200 mg at HS Essential hypertension 87368324 I10 BP has been underconti nue lisinopril 5 mg dailyconti nue metoprolol 50 mg bidfurosem oxana 40 mg dailymonit or BP /labs Anxiety 07173895 F41.9 continue ativan 0.5 mg q6 prnshe has agreed to try antidepres santshe was started on fluoxetine 20 mg daily on 09/18will monitor mood and behavior Carotid ar dahlia stenosis 71013808 I65.29 10/09:Histo ry of bilateral TCAR and [...] whether to reinterven e on the stent. [id number] Tere HerreraMariajose Gentile [facility] JOSEY [address] [facility] [address] [facility] [place] [place] [address] 10/14/2023 09:41:31 10/18/2023 09:28:24 Amputated below knee 054660775 Z89.519 does not need wrap. healedappl y skin prep BID nsg updated.wo rking with PTpain controlled . Vascular dementia 578196 004 F01.54 chronis stablediff iculty to recall thoughts and respond to questions. mood stablecont inue supportive caremonito r for decline. [id number] JAKI LÓPEZ NP [facility] [address] [place] [address] 10/20/2023 09:58:42 10/22/2023 09:32:05 Amputated below knee 697547164 Z89.519 right below knee amputation .remaining nehemias removed on 10/07/23- continues to heal well.stop oxycodone 5 mg q 12 prn due to minimal usecontinu e PT/OT for conditioni ng and strengthen ing.contin ue wound care, the stump potato chip sacking machine operator and the amputation shieldwoun d healing without s/sx of infection. Peripheral vascular disease 052174927 I73.9 continue asa, plavix and eliquiscon tinue lyrica 150 mg qd and 200 mg at HS for pain mgmt Essential hypertension 73393081 I10 VSS, BP soft on occasionco ntinue lisinopril 5 mg dailyconti nue metoprolol 50 mg bidfurosem oxana 40 mg dailymonit or BP /labs Anxiety 79801318 F41.9 continue ativan 0.5 mg q6 prn - occasional use, discussed with nsg. will renew for another 14 days.Dulox etine 20 mg daily recently started, orly. well so far, nsg. feels it has been helping mood and behaviors. Continue to monitorPsy ch following as well. Carotid ar dahlia stenosis 01926930 I65.29 History of bilateral TCAR and left [...] ultrasound , plavix, and follow up appt. [id number] PÉREZ LUNDBERG, MIRI [facility] [address] [facility] [address] [place] [address] 10/25/2023 10:59:01 10/26/2023 15:44:22 Amputated below knee 306625370 Z89.519 right below knee amputation , continues to heal well.now open to air ,wound healing without s/sx of infection. continue tylenol and lyrica Peripheral vascular disease 521144912 I73.9 continue asa, plavix and eliquiscon tinue lyrica 150 mg qd and 200 mg at HS for pain mgmtwill discuss need to continue plavix at vascular appt 10/28/23 Essential hypertension 24791828 I10 continue lisinopril 5 mg dailyconti nue metoprolol 50 mg bidfurosem oxana 40 mg dailymonit or BP /labs Anxiety 10387780 F41.9 continue ativan 0.5 mg q6 prn - occasional use, discussed with nsg. will renew for another 14 days.Dulox etine 20 mg daily recently started, orly. well so far, nsg. feels it has been helping mood and behaviors. - seen by counseling psychologist on 10/23 reports feeling some improvemen t with duloxetine , recommende d to continueCo ntinue to monitorPsy ch following as well. Carotid ar dahlia stenosis 62792278 I65.29 History of bilateral TCAR and left [...] will be discussed at that appointmen t. [id number] MIRI NORTON [facility] JOSEY [address] [place] [address] [place] [address] 5 10/26/2023 12:11:32 10/31/2023 16:07:08 COVID-19 036973489 U07.1 see hpiwill started paxlovid, isolation precaution supportati ve treatment: with mucinex 600 mg BID for 5 dayspaxlov id as orderedprn neb tx for sob. [id number] MIRI NORTON VINI DOWLING [address] [facility] [address] [place] [address] 10/31/2023 16:29:45 11/01/2023 13:09:54 COVID-19 513131847 U07.1 she has been stable no reportable sx notedwill received last dose of paxlovid tonightiso lation precaution continue supportati ve treatment: prn neb tx for sob. Amputated below knee 299 740511 Z89.519 right below knee amputation , continues to heal well.now open to air ,wound healing without s/sx of infection. continue tylenol and lyrica Peripheral vascular disease 582881813 I73.9 continue asa, plavix and eliquiscon tinue lyrica 150 mg qd and 200 mg at HS for pain mgmtwill discuss need to continue plavix at vascular appt 10/28/23 Essential hypertension 49886327 I10 continue lisinopril 5 mg dailyconti nue metoprolol 50 mg bidfurosem oxana 40 mg dailymonit or BP /labs Anxiety 91279379 F41.9 continue ativan 0.5 mg q6 prn -continue Duloxetine 20 mg dailymood has been good.Galindo nue to monitorPsy ch following as well. Carotid ar dahlia stenosis 19741089 I65.29 History of bilateral TCAR and left [...] will be discussed at that appointmen tCandis [id number] MIRI NORTON [address] [place] [address] rd [place] [address] 11/04/2023 09:52:30 11/08/2023 11:09:10 COVID-19 550555634 U07.1 completed anti-viral . Amputated below knee 299 965594 Z89.519 right below knee amputation , continues to heal well.now open to air ,wound healing without s/sx of infection. continue tylenol and lyrica Peripheral vascular disease 556139851 I73.9 continue asa, plavix and eliquis- on hold for now for melenacont inue lyrica 150 mg qd and 200 mg at HS for pain mgmt Essential hypertension 71773310 I10 continue lisinopril 5 mg dailyconti nue metoprolol 50 mg bidfurosem oxana 40 mg dailymonit or BP /labs Anxiety 84491001 F41.9 continue ativan 0.5 mg q6 prn -continue Duloxetine 20 mg dailyConti nue to monitorPsy ch following as well. Carotid ar dahlia stenosis 55212694 I65.29 History of bilateral TCAR and left [...] be discussed at that appointmen tCandis Chamberlain 0134396 K92.1 11/02: nursing report black tarry stool, [...] hematemesi s, weakness, dizziness and or pallor. [id number] [facility] NORTON [facility] [address] [place] [address] [place] [address] 11/07/2023 08:49:06 11/09/2023 10:55:24 Melena 1775100 K92.1 11/06: continue to have black tarry [...] s, weakness, dizziness and or pallor. Anemia 127988518 D64.9 H/H trending down today noted at 09/12-signi ficant drop in 7 days tested 3 times. continue ferrous sulfate 325 mg dailycont. Vit D 1000u daily [id number] Sarah Jeffers, ZENOBIA [address] [place] [address] 11/12/2023 07:51:13 11/18/2023 09:17:41 Anemia 731665705 D64.9 [facility] [place] obtained with hemoglobin 6 on admission to [facility] [place],No reports of blood in [...] bmp weekly on mondays x 3 Esophagitis 73795868 K20 .90 no melena noted in hospital, [...] bmp weekly on mondays x 3 Anxiety 79812643 F41.9 while in hopsital her ativan 0.5 mg q6 prn was discontinu edcontinue Duloxetine 20 mg dailyConti nue to monitorPsy ch following as well. Hypothyroidism 93217931 E03.9 adjusted in hospitalco nt levothyrox ine 200 mcg po dailyreche ck tsh in 8 weeksmonit or Essential hypertension 93422538 I10 bp initially soft in hospital, lisinopril was held, now resolved and resumedcon tlisinopri l 5 mg po dailymetop rolol 50 mg po q 12 hoursmonit or Amputated below knee 299 222462 Z89.519 right below knee amputation , continues to heal well.galindo nue tylenol and lyricafu with vascular as planned Peripheral vascular disease 061260744 I73.9 eliquis on holdcontin ueasa, plavixlyri ca 150 mg qdmonitor Pressure i njury of coccygeal region of back stage II 4427643384 2371609 L89.152 healing denuded skin to right coccyx11/11 apply barrier cream topically bid and prnfrequen t brief changes and reposition ingmonitor for infection Vascular dementia 791428 004 F01.54 stablediff iculty to recall thoughts and respond to questions at baseline per staffmood stablecont inue supportive caremonito r for decline. [id number] MIRI NORTON [address] [place] [address] [place] [address] 11/14/2023 09:54:52 11/18/2023 10:04:39 Esophagitis 81967169 K20.90 no melena noted in hospital, but [...] bmp weekly on mondays x 3 Anemia 454295835 D64.9 [facility] [place] obtained with hemoglobin 6 on admission to [facility] [place],No reports of blood in [...] bmp weekly on mondays x 3 Anxiety 51870741 F41.9 while in hopsital her ativan 0.5 mg q6 prn was discontinu edcontinue Duloxetine 20 mg dailyConti nue to monitorPsy ch following as well. Hypothyroidism 79806837 E03.9 adjusted in hospitalco nt levothyrox ine 200 mcg po dailyreche ck tsh in 8 weeksmonit or Essential hypertension 41479898 I10 bp initially soft in hospital, lisinopril was held, now resolved and resumedcon tlisinopri l 5 mg po dailymetop rolol 50 mg po q 12 hoursmonit or Amputated below knee 299 131910 Z89.519 right below knee amputation , continues to heal well.galindo nue tylenol and lyricafu with vascular as planned Peripheral vascular disease 547469756 I73.9 eliquis on holdcontin ueasa, plavixlyri ca 150 mg qdmonitor Pressure i njury of coccygeal region of back stage II 3096431734 6770863 L89.152 healing denuded skin to right coccyx11/11 apply barrier cream topically bid and prnfrequen t brief changes and reposition ingmonitor for infection Vascular dementia 625703 004 F01.54 stablediff iculty to recall thoughts and respond to questions at baseline per staffmood stablecont inue supportive caremonito r for decline. [id number] MIRI NORTON [address] [address] 11/17/2023 14:04:30 11/23/2023 09:14:45 Anxiety 70109427 F41.9 stableDulo xetine 20 mg dailyConti nue to monitorPsy ch following as well. Hypothyroidism 40882279 E03.9 adjusted in hospitalco nt levothyrox ine 200 mcg po dailyreche ck tsh in 8 weeksmonit or Essential hypertension 56725747 I10 stable-lis inopril 5 mg po dailymetop rolol 50 mg po q 12 hoursmonit or Amputated below knee 299 053278 Z89.519 right below knee amputation , continues to heal well.galindo nue tylenol and lyricafu with vascular as planned Peripheral vascular disease 881980085 I73.9 eliquis stoppedcon tinue:asa, plavixlyri ca 150 mg qdmonitor Vascular dementia 003486 [address] declinebas sahara difficulty with word findingmoo d stablecont inue supportive caremonito r for decline. Anemia 556608893 D64.9 continuefe rrous sulfate 325 mg dailycont. Vit D 1000u dailymonit or cbc and bmp weekly on mondays x 3 [id number] MIRI NORTON [address] [address] 11/21/2023 11:10:23 11/23/2023 10:20:09 Anxiety 10955341 F41.9 stableDulo xetine 20 mg dailyConti nue to monitorPsy ch following as well. Hypothyroidism 41620117 E03.9 adjusted in hospitalco nt levothyrox ine 200 mcg po dailyreche ck tsh in 8 weeksmonit or Essential hypertension 45621188 I10 stable-lis inopril 5 mg po dailymetop rolol 50 mg po q 12 hoursmonit or Amputated below knee 299 406777 Z89.519 right below knee amputation , continues to heal well.galindo nue tylenol and lyricafu with vascular as planned Peripheral vascular disease 756165413 I73.9 eliquis stoppedcon tinue:asa, plavixlyri ca 150 mg qdmonitor Vascular dementia 220230 [address] declinebas sahara difficulty with word findingmoo d stablecont inue supportive caremonito r for decline. Anemia 769757229 D64.9 continuefe rrous sulfate 325 mg dailycont. Vit D 1000u dailymonit or cbc and bmp weekly on mondays x 3 [id number] MIRI NORTON [address] [address] 11/29/2023 10:14:07 12/01/2023 14:32:41 Anxiety 01837899 F41.9 stablecont inue duloxetine 20 mg daily- she is having a positive response with med.Contin ue to monitorupd ate HDBH with concerns. Hypothyroidism 02266450 E03.9 adjusted in hospitalco nt levothyrox ine 200 mcg po dailyreche ck tsh in 8 weeks- ord for 11/18monito r Essential hypertension 48856502 I10 continue lisinopril 5 mg po dailyconti nue metoprolol 50 mg po q 12 hoursmonit or Amputated below knee 299 040103 Z89.519 right below knee amputation , continues to heal well.galindo nue tylenol and lyricafu with vascular as planned Peripheral vascular disease 579537373 I73.9 eliquis stoppedcon tinue:asa, plavixlyri ca 150 mg qdmonitor Vascular dementia 169190 004 F01.54 expect declinebas sahara difficulty with word findingmoo d stablecont inue supportive caremonito r for decline. Anemia 366751287 D64.9 continuefe rrous sulfate 325 mg dailycont. Vit D 1000u dailymonit or cbc and bmp weekly on mondays x 39/3: H/H has been stable increasing every week. [id number] MIRI NORTON [address] [address] 12/01/2023 11:44:42 12/05/2023 13:22:49 Amputated below knee 199079333 Z89.519 right below knee amputation open wound noted on stump concerning for infection, yellowish drainage noted on dressing ,will send culture.co ntinue tylenol and lyricafu with vascular as planned Peripheral vascular disease 009890542 I73.9 eliquis stoppedcon tinue:asa, plavixlyri ca 150 mg qdmonitor Vascular dementia 597716 004 F01.54 expect declinebas sahara difficulty with word findingmoo d stablecont inue supportive caremonito r for decline. [id number] MIRI NORTON [address] [address] 12/05/2023 09:49:14 12/07/2023 10:15:18 Amputated below knee [id number] Z89.519 right below knee amputation wound culture pendingcon tinue tylenol and lyricafu with vascular as planned Peripheral vascular disease [id number] I73.9 eliquis stoppedcon tinue:asa, plavixlyri ca 150 mg qdmonitor Vascular dementia 436365 004 F01.54 expect declinebas sahara difficulty with word findingmoo d stablecont inue supportive caremonito r for decline. [id number] MIRI NORTON [address] [address] 12/12/2023 08:48:56 12/14/2023 08:51:51 Amputated below knee [id number] Z89.519 right below knee amputation continue tylenol and lyricafu with vascular as planned on 12/16/23 Peripheral vascular disease [id number] I73.9 eliquis stoppedcon tinue:asa, plavixlyri ca 150 mg qdmonitor Vascular dementia 676562 004 F01.54 expect declinebas sahara difficulty with word findingmoo d stablecont inue supportive caremonito r for decline. Subconjunc tival hemorrhage of left eye [id number] 63418 H11.32 no pain or visual changesnur sing to update provider for changes in vision, pain or discharge. can apply warm compress for comfort if irritated. 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 Peripheral vascular disease [id number] I73.9 12/15 carotid duplex shows 70 to 99% stenosis in her right ICA, this is s/p TCAR and she has a patent stent. Her left side shows 1 to 49% stenosis in the ICA with a patent stent.repe at duplex in 6 months eliquis stoppedcon tinue:asa, plavixlyri ca 150 mg qdmonitor Vascular dementia 895744 004 F01.54 expect declinebas sahara difficulty with word findingmoo d stablecont inue supportive caremonito r for decline. Subconjunc tival hemorrhage of left eye [id number] 15604 H11.32 resolvingn o pain or visual changesnur sing to update provider for changes in vision, pain or discharge. can apply warm compress for comfort if irritated. monitor for worsening sx, pt is on asa and plavix daily.H/H stable , will continue to monitor Insomnia 239057460 G47.0 0 see HPIstop melatonins tart trazodone 50 mg at HSmonitor for effectiven ess [id number] [facility] [address] [facility] [address] [place] [address] 12/22/2023 11:08:23 12/23/2023 12:52:01 Amputated below knee [id number] Z89.519 right below knee amputation continue tylenol [...] and promote wound healing. Peripheral vascular disease 338196530 I73.9 12/15 carotid duplex shows 70 to [...] plavixlyri ca 150 mg qdmonitor Vascular dementia 601214 004 F01.54 expect declinebas sahara difficulty with word findingmoo d stablecont inue supportive caremonito r for decline. Subconjunc tival hemorrhage of left eye [id number] 50336 H11.32 resolvingn o pain or visual changesnur sing to update provider for changes in vision, pain or discharge. can apply warm compress for comfort if irritated. monitor for worsening sx, pt is on asa and plavix daily.H/H stable , will continue to monitor Insomnia 125340129 G47.0 0 continue trazodone 50 mg at HS- will reassess at next visit.prakash cat for effectiven essdiscuss ed with patient avoiding caffeine drinks before bed, antidepres nuria and BP meds can causes insomnia. we discussed trying relaxation techniques such as deep breathing and guided imagery. [id number] MIRI NORTON [address] [place] [phone] 12/27/2023 14:42:28 12/28/2023 11:41:01 Amputated below knee 954331369 Z89.519 right below knee amputation continue tylenol [...] and promote wound healing. Peripheral vascular disease 541169434 I73.9 12/15 carotid duplex shows 70 to [...] plavixlyri ca 150 mg qdmonitor Vascular dementia 121014 004 F01.54 expect declinebas sahara difficulty with word findingmoo d stablecont inue supportive caremonito r for decline. Subconjunc tival hemorrhage of left eye [id number] 83907 H11.32 resolvingn o pain or visual changesnur sing to update provider for changes in vision, pain or discharge. can apply warm compress for comfort if irritated. monitor for worsening sx, pt is on asa and plavix daily.H/H stable , will continue to monitor Insomnia 299399990 G47.0 0 continue trazodone 50 mg at HS- will reassess at next visit.prakash cat for effectiven essdiscuss ed with patient avoiding caffeine drinks before bed, antidepres nuria and BP meds can causes insomnia. we discussed trying relaxation techniques such as deep breathing and guided imagery. [id number] MIRI NORTON [address] [place] [id number] 01/02/2024 08:33:03 01/03/2024 11:47:07 Amputated below knee 499041474 Z89.519 followed closely by vascular.r ight below [...] and promote wound healing. Peripheral vascular disease 348901492 I73.9 12/15 carotid duplex shows 70 to [...] plavixlyri ca 150 mg qdmonitor Vascular dementia 739748 [address] declinebas sahara difficulty with word findingmoo d stablecont inue supportive caremonito r for decline. Subconjunc tival hemorrhage of left eye [id number] 25488 H11.32 resolvingn o pain or visual changesnur sing to update provider for changes in vision, pain or discharge. can apply warm compress for comfort if irritated. monitor for worsening sx, pt is on asa and plavix daily.H/H stable , will continue to monitor Insomnia 424666294 G47.0 0 continue trazodone 50 mg at [...] Member ID Guarantor Name 12/28/2023 2 [place] [facility] Marixa Chan [id number] Marixa Chan 12/27/2023 1 MEDIC[place] B[place]: [employer] Marixa Chan [id number] Marixa Chan Notes Date Note Type Note [...] today for acute rounding visit MIRI NORTON [address] [place] [address], [facility] [address], [place], [address], [employer] [facility] 12/12/2023 14:39:04 12/19/2023 text/html ROS as noted [...] television all night. 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 MIRI NORTON [address] [facility], [address], [place], [address], [email or web address] 01/02/2024 13:22:00 OBGyn Episode No OBEpisode recorded.
--- OUTSIDE RECORDS SUMMARY | 2025-03-25 11:19 | XMS_ITS | Clinical Summary ---
Author Organization [facility] it Address [address] [place] [address] Care Team Providers Care Press Machine Operator Name Role Phone Unavailable Primary [...]
--- OUTSIDE RECORDS SUMMARY | 2025-03-25 11:19 | XMS_ITS | Patient Health Record ---
Author Organization [facility] Katie tate Billing Info Address [address] [place] [phone] Phone [phone] Care Team Providers Care Valve Assembler Name Role Phone Bettina BARTOLO BOND Supriya [phone] Reason For Referral No Information Social History [...]
--- OUTSIDE RECORDS SUMMARY | 2025-03-25 11:19 | XMS_ITS | Encounter Summary ---
Author Organization [employer] Address [address] [facility] [address] [place] [address] Care Team Providers Care Stocking And Box Shop Supervisor Name Role Phone Unavailable Primary Care Provider Unavailabl e Encounter Details Date Type Department Care Team (Latest Contact Info) Description 06/29/2021 Abstract [facility] CONVERSIONS Dental, Provider, DDS Social [...]
--- OUTSIDE RECORDS SUMMARY | 2025-03-25 11:19 | XMS_ITS | Clinical Summary ---
Author Organization [employer] Address [address] [facility] [address] [place] [address] Care Team Providers Care Physician Asst Name Role Phone Unavailable Primary Care Provider [...] Most Recently Relevant to Health Maintenance Insurance [facility] MEDICAID STAND ADULT
--- OUTSIDE RECORDS SUMMARY | 2025-03-25 11:19 | XMS_ITS | Encounter Summary ---
Author Organization [employer] Address [address] [facility] [address] [place] [address] Care Team Providers Care Adhesive Primer Name Role Phone Unavailable Primary Care Provider Unavailabl e Encounter Details Date Type Department Care Team (Latest Contact Info) Description 07/09/2020 Abstract [facility] CONVERSIONS Dental, Provider, DDS Social [...]
--- OUTSIDE RECORDS SUMMARY | 2025-03-25 11:19 | XMS_ITS | Clinical Summary ---
Author Organization [address] Address [address] [place] [address] Care Team Providers Care Wire Insulator Name Role Phone Unavailable Primary Care Provider [...]
--- OUTSIDE RECORDS SUMMARY | 2025-03-25 11:19 | XMS_ITS | Encounter Summary ---
Author Organization [employer] Address [address] [facility] [address] [place] [address] Care Team Providers Care Telegraph Lineman Name Role Phone Unavailable Primary Care Provider Unavailabl e Encounter Details Date Type Department Care Team (Latest Contact Info) Description 05/02/2018 Abstract [facility] CONVERSIONS Dental, Provider, DDS Social History [...]
--- OUTSIDE RECORDS SUMMARY | 2025-03-25 11:19 | XMS_ITS | Encounter Summary ---
Author Organization [employer] Address [address] [facility] [address] [place] [address] Care Team Providers Care Strapping Machine Operator Name Role Phone Unavailable Primary Care Provider Unavailabl e Reason for Visit * Reason Onset Date Comments medical clearance 05/27/2022 Encounter Details Date Type Department Care Team (Late st Contact Info) Description 05/27/2022 Telephone [facility] [address] [place] [address] Davonte Cunningham DDS medical clearance Social History [...] was for medical clearance. Pls re send [phone] * Telephone Encounter - Lucina Leigh - [...] was for medical clearance. Pls re send [phone] documented in this encounter Plan of Treatment Not on file documented as of this encounter Visit Diagnoses Not on filedocumented in this encounter
== END 2025-03-25 10:06 ==
LOC: HO.MMNH3L 10:05
PROVIDERS: Visit Provider Physician Assistant Medical
DX: I69.398 Other sequelae of cerebral infarction (principal); I25.9 Chronic ischemic heart disease, unspecified; E03.9 Hypothyroidism, unspecified; Z89.611 Acquired absence of right leg above knee
CPT/HCPCS: 36415; 80048; 85025